=== PATIENT | female | born 1965 | race Caucasian/White ===

== ENCOUNTER 2017-11-27 00:24 | Emergency (ER) | payer OTHER ==
[2017-11-27] MEDS ORDERED: FENTANYL CITR 100 MCG/2 ML ONE (00:44)
[2017-11-27] MEDS ORDERED: NA CHLORIDE 0.9% 500 ML ONE (00:45)
[2017-11-27] MEDS ORDERED: ONDANSETRON 4 MG/2 ML VIAL ONE (00:45)
[2017-11-27 01:50] LABS: Absolute Lymphocytes (CBC) 2.2 K/uL (0.7-4.9); Absolute Monocytes 0.5 K/uL (0.1-1.3); Absolute Neutrophil 4.6 K/uL (1.8-8.0); Basophils % 0.3 % (0-1.3); Eosinophils % 2.1 % (0-4.4); Hematocrit 33.8 % (36.0-45.0); MCH 27.7 pg (27.0-35.0); MCV 84.7 fL (80-100); MPV 9.9 fL (7.6-11.3); Monocytes % 6.2 % (3.3-12.3); RBC Red Blood Cell Count 3.99 M/uL (3.86-4.86)
[2017-11-27 01:53] LABS: Potassium 3.8 mEq/L (3.6-5.0)
[2017-11-27 02:09] LABS: Albumin 3.3 g/dL (3.2-5.5); Bilirubin Total 0.5 mg/dL (0.3-1.2); Protein, Total 5.7 g/dL (6.0-8.3)
--- NOTE | 2017-11-27 02:21 | ER ---
Nurse's Notes [facility] Name: Renetta Ramsay Age: 51 yrs Sex: Female : 1965 Arrival Date: 11/27/2017 Time: 00:26 Bed 8 Private MD: Diagnosis: Pain in left foot;Type 2 diabetes mellitus-poorly controlled Presentation: 11/27 00:35 Presenting complaint: Patient states: she had excruciating pain in the left foot while mg2 sitting at home today. she observed the swelling of the left foot for 2 months already. Transition of care: patient was not received from another setting of care. Onset of symptoms was October 2017. Initial Sepsis Screen: Does the patient meet any 2 criteria? No. Patient's initial sepsis screen is negative. Does the patient have a suspected source of infection? No. Patient's initial sepsis screen is negative. Care prior to arrival: None. 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 - Social history:: Smoking status: Patient uses tobacco products, smokes one-half pack cigarettes per day. - Family history:: not pertinent. - Hospitalizations: : No recent hospitalization is reported. Screenin:50 Abuse screen: Denies threats or abuse. Denies injuries from another. Nutritional ak1 screening: No deficits noted. Tuberculosis screening: No symptoms or risk factors identified. Fall Risk None identified. Assessment: 00:55 General: Appears in no apparent distress. comfortable, Behavior is calm, cooperative. mg2 Pain: Complains of pain in left foot Pain does not radiate. Pain currently is 10 out of 10 on a pain scale. Quality of pain is described as burning, Pain began suddenly, Is intermittent, Aggravated by repositioning, Also complains of osteomyelitis. Neuro: Level of Consciousness is awake, alert, obeys commands, Oriented to person, place, time, situation. Cardiovascular: Capillary refill < 3 seconds Patient's skin is warm and dry. Respiratory: Airway is patent Respiratory effort is even, unlabored, Respiratory pattern is regular, symmetrical. GI: No signs and/or symptoms were reported involving the gastrointestinal system. : No signs and/or symptoms were reported regarding the genitourinary system. EENT: No signs and/or symptoms were reported regarding the EENT system. Derm: Skin is intact, Skin is pink, warm \T\ dry. normal. Musculoskeletal: Amputation of. 01:37 Reassessment: Patient appears in no apparent distress at this time. Patient and/or aa1 family updated on plan of care and expected duration. Pain level reassessed. Patient is alert, oriented x 3, equal unlabored respirations, skin warm/dry/pink. Awaiting lab results. Vital Signs: 00:39 BP 127 / 76; Pulse 91; Resp 18; Temp 98.8; Pulse Ox 98% ; Weight 102.97 kg; Height 5 mg2 ft. 11 in. (180.34 cm); Pain 10/10; 01:37 BP 107 / 60; Pulse 80; Resp 16; Pulse Ox 94% on R/A; aa1 02:17 BP 113 / 62; Pulse 80; Resp 16; Pulse Ox 95% on R/A; mt 02:34 BP 111 / 64; Pulse 75; Resp 12; Temp 98.3; Pulse Ox 97% on R/A; Pain 0/10; ak1 00:39 Body Mass Index 31.66 (102.97 kg, 180.34 cm) mg2 ED Course: 00:26 Patient arrived in ED. ds1 00:28 Alireza Mar RN is Primary Nurse. mg2 00:30 Krunal Flores MD is Attending Physician. bia 00:37 Triage completed. mg2 00:40 Arm band placed on Patient placed in the treatment room, on a stretcher, on pulse mg2 oximetry. 00:50 Initial lab(s) drawn, by me, sent to lab. Inserted saline lock: 22 gauge in right hand, ak1 using aseptic technique. Blood collected. 00:57 X-ray completed. Portable x-ray completed in exam room. Patient tolerated procedure kw well. 00:58 Foot Left 3 View XRAY In Process Unspecified. EDMS 00:58 Patient has correct armband on for positive identification. Bed in low position. Call mg2 light in reach. Side rails up X2. Warm blanket given. 02:26 Crutch training done. Ortho shoe applied to left foot. oh 02:34 No provider procedures requiring assistance completed. ak1 02:52 IV discontinued, intact, bleeding controlled, No redness/swelling at site. Pressure ak1 dressing applied, pt calling her mom for a ride home. Administered Medications: 00:50 Drug: Zofran 4 mg Route: IVP; Site: right hand; mg2 01:53 Follow up: Response: No adverse reaction; Other; no vomiting noted mg2 00:53 Drug: NS 0.9% 500 ml Route: IV; Rate: bolus; Site: right hand; aa1 02:35 Follow up: IV Status: Completed infusion ak1 00:53 Drug: fentaNYL (PF) 50 mcg Route: IVP; Site: right hand; aa1 01:53 Follow up: Response: No adverse reaction; Pain is decreased mg2 02:40 Drug: Insulin Regular Human 10 units {Co-Signature: ak1 (Leticia Xiong RN).} Route: IVP; Site: right hand; 02:51 Follow up: Response: No adverse reaction ak1 02:47 Drug: Levemir 100 unit/mL 30 units Route: Sub-Q; Site: right upper arm; 02:51 Follow up: Response: No adverse reaction ak1 Intake: Outcome: 02:21 Discharge ordered by . [facility] 02:34 Condition: stable ak1 02:34 Discharge instructions given to patient, Instructed on discharge instructions, follow up and referral plans. no drinking with medication, no driving heavy equipment, medication usage, crutch walking, Demonstrated understanding of instructions, follow-up care, medications, crutch walking, Prescriptions given X 1. 03:06 Discharged to home via wheelchair, with family, pt mother on her way to pick pt up ak1 03:06 Patient left the ED. ak1 Signatures: Dispatcher [employer] EDMS Alivia Fajardo RN RN aaKrunal Bravo MD MD cha Chretien, Felicia, RN RN Rissa Zhou dsLilia Madrigal Amber, RN RN sil1 Lana Cantu oh Alireza Mar RN RN [facility] Leticia mujica1
--- NOTE | 2017-11-27 02:22 | EDPHYS ---
Physician Documentation [facility] Name: Renetta Ramsay Age: 51 yrs Sex: Female : 1965 Arrival Date: 11/27/2017 Time: 00:26 Bed 8 Private MD: ED Physician Krunal Flores HPI: 11/27 00:40 This 51 yrs old Female presents to ER via Wheelchair with complaints of Foot bia Pain - Swelling. 00:40 The patient presents with decreased range of motion, pain, swelling, tenderness. The bia complaints affect the left foot. Context: The problem was sustained at an unknown location. Onset: The symptoms/episode began/occurred 5 day(s) ago. Modifying factors: The symptoms are alleviated by elevation of extremity, the symptoms are aggravated by weight bearing, movement. Associated signs and symptoms: The patient has no apparent associated signs or symptoms. Severity of symptoms: At their worst the symptoms were mild, in the emergency department the symptoms are unchanged. The patient has not experienced similar symptoms in the past. 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 - Social history:: Smoking status: Patient uses tobacco products, smokes one-half pack cigarettes per day. - Family history:: not pertinent. - Hospitalizations: : No recent hospitalization is reported. ROS: 00:40 Constitutional: Negative for fever, chills, and weight loss, Eyes: Negative for injury, bia pain, redness, and discharge, ENT: Negative for injury, pain, and discharge, Neck: Negative for injury, pain, and swelling, Cardiovascular: Negative for chest pain, palpitations, and edema, Respiratory: Negative for shortness of breath, cough, wheezing, and pleuritic chest pain, Abdomen/GI: Negative for abdominal pain, nausea, vomiting, diarrhea, and constipation, Back: Negative for injury and pain, : Negative for injury, bleeding, discharge, and swelling, Skin: Negative for injury, rash, and discoloration, Neuro: Negative for headache, weakness, numbness, tingling, and seizure, Psych: Negative for depression, anxiety, suicide ideation, homicidal ideation, and hallucinations, Allergy/Immunology: Negative for hives, rash, and allergies, Endocrine: Negative for neck swelling, polydipsia, polyuria, polyphagia, and marked weight changes, Hematologic/Lymphatic: Negative for swollen nodes, abnormal bleeding, and unusual bruising. 00:40 MS/extremity: Positive for pain, swelling, tenderness, of the left foot. Exam: 00:40 Constitutional: This is a well developed, well nourished patient who is awake, alert, bia and in no acute distress. Head/Face: Normocephalic, atraumatic. Eyes: Pupils equal round and reactive to light, extra-ocular motions intact. Lids and lashes normal. Conjunctiva and sclera are non-icteric and not injected. Cornea within normal limits. Periorbital areas with no swelling, redness, or edema. ENT: Nares patent. No nasal discharge, no septal abnormalities noted. Tympanic membranes are normal and external auditory canals are clear. Oropharynx with no redness, swelling, or masses, exudates, or evidence of obstruction, uvula midline. Mucous membranes moist. Neck: Trachea midline, no thyromegaly or masses palpated, and no cervical lymphadenopathy. Supple, full range of motion without nuchal rigidity, or vertebral point tenderness. No Meningismus. Chest/axilla: Normal chest wall appearance and motion. Nontender with no deformity. No lesions are appreciated. Cardiovascular: Regular rate and rhythm with a normal S1 and S2. No gallops, murmurs, or rubs. Normal PMI, no JVD. No pulse deficits. Respiratory: Lungs have equal breath sounds bilaterally, clear to auscultation and percussion. No rales, rhonchi or wheezes noted. No increased work of breathing, no retractions or nasal flaring. Abdomen/GI: Soft, non-tender, with normal bowel sounds. No distension or tympany. No guarding or rebound. No evidence of tenderness throughout. Back: No spinal tenderness. No costovertebral tenderness. Full range of motion. Pelvic Exam: Normal external genitalia. Speculum exam with closed cervical os, no discharge or bleeding noted. Bimanual exam with normal adnexa, no adnexal or cervical motion tenderness. Normal uterus. Female : Normal external genitalia. Skin: Warm, dry with normal turgor. Normal color with no rashes, no lesions, and no evidence of cellulitis. Neuro: Awake and alert, GCS 15, oriented to person, place, time, and situation. Cranial nerves II-XII grossly intact. Motor strength 5/5 in all extremities. Sensory grossly intact. Cerebellar exam normal. Normal gait. Psych: Awake, alert, with orientation to person, place and time. Behavior, mood, and affect are within normal limits. 00:40 Musculoskeletal/extremity: Extremities: ROM: intact in all extremities, full active range of motion, full passive range of motion, Pulses: noted to be 4+ in the bilateral radial, brachial, femoral, popliteal, posterior tibial and and dorsalis pedis arteries., DVT Exam: No signs of deep vein thrombosis. negative Homans' sign noted on exam, no appreciated bluish discoloration, no erythema, no increased warmth, pain, swelling, tenderness, of the left leg. Vital Signs: 00:39 BP 127 / 76; Pulse 91; Resp 18; Temp 98.8; Pulse Ox 98% ; Weight 102.97 kg; Height 5 mg2 ft. 11 in. (180.34 cm); Pain 10/10; 01:37 BP 107 / 60; Pulse 80; Resp 16; Pulse Ox 94% on R/A; aa1 02:17 BP 113 / 62; Pulse 80; Resp 16; Pulse Ox 95% on R/A; mt 02:34 BP 111 / 64; Pulse 75; Resp 12; Temp 98.3; Pulse Ox 97% on R/A; Pain 0/10; ak1 00:39 Body Mass Index 31.66 (102.97 kg, 180.34 cm) mg2 MDM: 00:30 Patient medically screened. [facility] 00:40 Data reviewed: vital signs, nurses notes, lab test result(s), radiologic studies, plain bia films. 11/27 00:39 Order name: Sed Rate; Complete Time: 02:19 [facility] 11/27 00:39 Order name: CBC with Diff; Complete Time: 02:19 [facility] 11/27 00:39 Order name: Foot Left 3 View XRAY [facility] 11/27 00:39 Order name: Comprehensive Metabolic Panel; Complete Time: 02:19 [facility] 11/27 02:20 Order name: Crutches; Complete Time: 02:20 [facility] 11/27 02:20 Order name: Post-op shoe; Complete Time: 02:20 [facility] Administered Medications: 00:50 Drug: Zofran 4 mg Route: IVP; Site: right hand; mg2 01:53 Follow up: Response: No adverse reaction; Other; no vomiting noted mg2 00:53 Drug: NS 0.9% 500 ml Route: IV; Rate: bolus; Site: right hand; aa1 02:35 Follow up: IV Status: Completed infusion ak1 00:53 Drug: fentaNYL (PF) 50 mcg Route: IVP; Site: right hand; aa1 01:53 Follow up: Response: No adverse reaction; Pain is decreased mg2 02:40 Drug: Insulin Regular Human 10 units {Co-Signature: mercedez (Leticia Xiong RN).} Route: IVP; Site: right hand; 02:51 Follow up: Response: No adverse reaction ak1 02:47 Drug: Levemir 100 unit/mL 30 units Route: Sub-Q; Site: right upper arm; 02:51 Follow up: Response: No adverse reaction ak1 Disposition: 11/27/17 02:21 Discharged to Home. Impression: Pain in left foot, Type 2 diabetes mellitus - poorly controlled. - Condition is Stable. - Discharge Instructions: Type 2 Diabetes Mellitus, Adult, Foot Sprain, Musculoskeletal Pain, Type 2 Diabetes Mellitus, Adult, [id number]. - Prescriptions for Tylenol- Codeine #3 300-30 mg Oral Tablet - take 2 tablets by ORAL route every 6 hours As needed; 26 tablet. - Medication Reconciliation Form, Thank You Letter, Antibiotic Education, Prescription Opioid Use form. - Follow up: Private Physician; When: 2 - 3 days; Reason: Recheck today's complaints, Continuance of care, Re-evaluation by your physician. - Problem is new. - Symptoms are unchanged. Signatures: Dispatcher [employer] Alivia Pererya RN RN aa1 Krunal Flores MD MD cha Chretien, Felicia, RN RN fc Krenek, Amber, RN RN ak1 Alireza Mar RN RN mg2 Amber Krenek RN ak1 Corrections: (The following items were deleted from the chart) 03:06 02:21 11/27/2017 02:21 Discharged to Home. Impression: Pain in left foot; Type 2 ak1 diabetes mellitus - poorly controlled. Condition is Stable. Discharge Instructions: Type 2 Diabetes Mellitus, Adult, Foot Sprain, Musculoskeletal Pain, Type 2 Diabetes Mellitus, Adult, [id number]. Prescriptions for Tylenol-Codeine #3 300-30 mg Oral Tablet - take 2 tablets by ORAL route every 6 hours As needed; 26 tablet. and Forms are Medication Reconciliation Form, Thank You Letter, Antibiotic Education, Prescription Opioid Use. Follow up: Private Physician; When: 2 - 3 days; Reason: Recheck today's complaints, Continuance of care, Re-evaluation by your physician. Problem is new. Symptoms are unchanged. bia
[2017-11-27] MEDS ORDERED: INSULIN -REGULAR HUMAN 50 UNIT/0.5 ML ML ONE (02:31)
[2017-11-27] MEDS ORDERED: INSULIN DETEMIR 100 UNIT/1 ML INSULIN SQ ONE (02:41)
[2017-11-27 03:15] VITALS: BP 111/64; TEMP 98.3; O2SAT 97
--- NOTE | 2017-11-27 08:49 | RAD REPORT ---
EXAM DESCRIPTION: RAD - Foot Left 3 View - 11/27/2017 1:02 am CLINICAL HISTORY: Left foot swelling. COMPARISON: 08/27/2017 FINDINGS: First and second toe amputation is noted. Prominent soft tissue swelling is seen about the amputation site without bony destruction. Callus formation is seen involving the third metatarsal he ad likely indicating a healing fracture. Flattening of the fourth metatarsal head is seen, likely chronic related to underlying AVN. Prominent calcaneal spur noted. Moderate intertarsal degenerative changes are seen. IMPRESSION: First and second toe amputation. Callus formation around the third metatarsal head likely indicating healing fracture.
== END 2017-11-27 03:06 | disposition home or self-care (01) ==
LOC: ER 00:24
DX: M79.672 Pain in left foot (principal); E11.65 Type 2 diabetes mellitus with hyperglycemia; F17.210 Nicotine dependence, cigarettes, uncomplicated; Z88.0 Allergy status to penicillin; Z88.1 Allergy status to other antibiotic agents; Z88.5 Allergy status to narcotic agent; Z88.8 Allergy status to other drugs, medicaments and biological substances
CPT/HCPCS: 36415; 73630; 80053; 85025; 85652; 96361; 96372; 96374; 96375; 99284; J2405; J3010

== ENCOUNTER 2018-01-03 21:19 | Emergency (ER) | payer OTHER ==
[2018-01-03] MEDS ORDERED: IBUPROFEN 400 MG TAB ONE (22:13)
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
[2018-01-04 00:26] VITALS: BP 122/70; TEMP 98.7; O2SAT 99
--- NOTE | 2018-01-04 08:09 | RAD REPORT ---
EXAM DESCRIPTION: RAD - Knee Right 3 View - 01/03/2018 10:11 pm CLINICAL HISTORY: Right knee pain status post injury FINDINGS: No fracture or dislocation is seen. A small joint effusion is suspected. If the patient continues have symptoms to suggest an occult fracture, ligamentous or meniscal injury then an MRI would be recommended.
== END 2018-01-03 23:31 | disposition home or self-care (01) ==
LOC: ER 21:19
DX: M25.561 Pain in right knee (principal); E11.9 Type 2 diabetes mellitus without complications; E78.00 Pure hypercholesterolemia, unspecified; F17.210 Nicotine dependence, cigarettes, uncomplicated; Z88.0 Allergy status to penicillin; Z88.8 Allergy status to other drugs, medicaments and biological substances
CPT/HCPCS: 99283

== ENCOUNTER 2018-03-07 20:51 | Emergency (ER) | payer OTHER ==
--- NOTE | 2018-03-07 22:10 | RAD REPORT ---
EXAM DESCRIPTION: RAD - Knee Right 3 View - 03/07/2018 10:01 pm CLINICAL HISTORY: PAIN COMPARISON: Knee Right 3 View dated 01/03/2018; Knee Right Wo Cont dated 01/22/2018 FINDINGS: Mild meniscal chondrocalcinosis is seen. Subtle sclerosis in the fibular head is likely at tributable to healing fracture. No acute fracture or dislocation seen. No intra-articular joint fluid .
--- NOTE | 2018-03-07 22:29 | RAD REPORT ---
EXAM DESCRIPTION: RAD - Knee Left 3 View - 03/07/2018 10:17 pm CLINICAL HISTORY: PAIN COMPARISON: Knee Left 3 view dated 08/05/2014 FINDINGS: No fracture or dislocation is seen. No significant joint effusion. Mild lateral compartmen t arthritic changes.
--- NOTE | 2018-03-07 22:31 | RAD REPORT ---
EXAM DESCRIPTION: RAD - Ankle Left 3 View - 03/07/2018 10:17 pm CLINICAL HISTORY: PAIN COMPARISON: Ankle Left 3 View dated 06/11/2015 FINDINGS: Mild osteoarthritic changes are present involving the tibiotalar joint and talocalcaneal j oint. Soft tissue swelling is seen about the ankle. No acute fractures appreciated. Small calcaneal s purs are noted.
[2018-03-07 23:55] LABS: Absolute Lymphocytes (CBC) 2.7 K/uL (0.7-4.9); Absolute Monocytes 0.6 K/uL (0.1-1.3); Absolute Neutrophil 3.7 K/uL (1.8-8.0); Basophils % 0.3 % (0-1.3); Eosinophils % 1.6 % (0-4.4); Hematocrit 36.3 % (36.0-45.0); Lymphocytes % 38.1 % (15.3-44.8); MCH 29.5 pg (27.0-35.0); MCV 86.4 fL (80-100); MPV 9.8 fL (7.6-11.3); Monocytes % 7.8 % (3.3-12.3); RBC Red Blood Cell Count 4.21 M/uL (3.86-4.86)
[2018-03-08 00:02] LABS: Urine Blood NEGATIVE (NEG); Urine Glucose NEGATIVE (NEG); Urine Protein NEGATIVE (NEG)
[2018-03-08 00:08] LABS: Potassium 3.4 mmol/L (3.5-5.1)
--- NOTE | 2018-03-08 02:00 | ER ---
Nurse's Notes [facility] Name: Renetta Ramsay Age: 52 yrs Sex: Female : 1965 Arrival Date: 03/07/2018 Time: 20:51 Bed 15 Private MD: Diagnosis: Fall (on) (from) other stairs and steps;Pain in unspecified knee-Bilateral, s/p fall;Contusion of abdominal wall;Pain in left ankle and joints of left foot-s/p fall Presentation: 03/07 21:04 Presenting complaint: Patient states: Reports falling from step stool and hitting abdomen on metal bar. Denies LOC. Also reports bilateral knee pain and left ankle pain. Ambulated with steady gait to triage. Redness noted to RLQ. Care prior to arrival: None. Mechanism of Injury: Fall out of chair. Trauma event details: Injury occurred in the [facility], Injury occurred: at home. Injury occurred: March 07, 2018 Injury occurred at: 20:45. 21:04 Method Of Arrival: Ambulatory aj 21:04 Acuity: OLY 4 aj 21:08 Transition of care: patient was not received from another setting of care. Onset of aj symptoms was March 07, 2018. 22:42 Risk Assessment: Do you want to hurt yourself or someone else? Patient reports no tl2 desire to harm self or others. Initial Sepsis Screen: Does the patient meet any 2 criteria? No. Patient's initial sepsis screen is negative. Does the patient have a suspected source of infection? No. Patient's initial sepsis screen is negative. 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 LMP N/A - Hysterectomy aj Trauma Activation: Not Applicable Physician: ED Physician; Name: ; Notified At: ; Arrived At: Physician: General Surgeon; Name: ; Notified At: ; Arrived At: Physician: Radiology; Name: ; Notified At: ; Arrived At: Physician: Respiratory; Name: ; Notified At: ; Arrived At: Physician: Lab; Name: ; Notified At: ; Arrived At: Historical: - Allergies: 21:11 Amoxicillin; aj 21:11 ARIPIPRAZOLE; aj 21:11 Demerol; aj 21:11 PENICILLINS; aj 21:11 pentazocine lactate; aj - Home Meds: 21:11 venlafaxine 150 mg oral cp24 1 cap once daily [Active]; Wellbutrin XL 150 mg Oral Tb24 aj 1 tab once daily [Active]; Xanax 2 mg Oral tab twice a day [Active]; pantoprazole 40 mg oral TbEC 1 tab once daily [Active]; Lyrica 150 mg Oral 3 times per day [Active]; olanzapine 5 mg oral TbDL 1 tab once daily [Active]; atorvastatin 20 mg oral tab 1 tab once daily [Active]; Xarelto 20 mg oral tab 1 tab once daily [Active]; Depakote 500 mg Oral TbEC 3 tabs 3 times per day [Active]; Topamax Oral [Active]; - PMHx: 21:11 ADD/ADHD; Bipolar disorder; Depression; Diabetes - NIDDM; High Cholesterol; aj osteomyelitis; Pancreatitis; Chronic pain; - Immunization history: Last tetanus immunization: - up to date. - Social history:: Smoking status: Patient uses tobacco products, smokes one-half pack cigarettes per day. - Ebola Screening: : Patient negative for fever greater than or equal to 101.5 degrees Fahrenheit, and additional compatible Ebola Virus Disease symptoms Patient denies exposure to infectious person Patient denies travel to an Ebola-affected area in the 21 days before illness onset No symptoms or risks identified at this time. Screenin:30 Abuse screen: Denies threats or abuse. Nutritional screening: No deficits noted. tl2 Tuberculosis screening: No symptoms or risk factors identified. Fall Risk Fall in past 12 months (25 points). Primary Survey: 21:04 Breathing/Chest: Respiratory pattern: regular, Respiratory effort: spontaneous, aj unlabored, Breath sounds: clear, bilaterally. Chest inspection: symmetrical rise and fall of the chest. Circulation: Skin color: pink, Skin temperature: warm, diaphoretic. Disability Alert. Assessment: 21:04 General: Appears in no apparent distress. comfortable, Behavior is calm, cooperative, aj appropriate for age. Pain: Complains of pain in right lower quadrant, right knee, left knee and anterior aspect of left ankle. Neuro: Level of Consciousness is awake, alert, obeys commands, Oriented to person, place, time, situation, Appropriate for age. Respiratory: Airway is patent Respiratory effort is even, unlabored, Respiratory pattern is regular, symmetrical. Derm: Skin is intact, is healthy with good turgor, Skin is pink, warm \T\ dry. normal, Bruising that is bright red, dark purple, on right lower quadrant. Musculoskeletal: Circulation, motion, and sensation intact. Range of motion: intact in all extremities. 22:30 General: Appears in no apparent distress. comfortable, Behavior is calm, cooperative, tl2 appropriate for age. Pain: Complains of pain in right lower quadrant and right knee and left knee. Neuro: Level of Consciousness is awake, alert, obeys commands, Oriented to person, place, time, situation. Neuro: Reports dizziness. Cardiovascular: Denies chest pain. Respiratory: Airway is patent Respiratory effort is even, unlabored, Respiratory pattern is regular, symmetrical. GI: Abdomen is non-distended, Abdomen is tender to palpation in right lower quadrant. : No signs and/or symptoms were reported regarding the genitourinary system. Derm: Skin is pink, warm \T\ dry. Bruising that is bright red, on right lower quadrant. 03/08 00:04 Reassessment: Patient appears in no apparent distress at this time. Patient and/or tl2 family updated on plan of care and expected duration. Pain level reassessed. Patient is alert, oriented x 3, equal unlabored respirations, skin warm/dry/pink. 01:01 Reassessment: Patient appears in no apparent distress at this time. Patient and/or tl2 family updated on plan of care and expected duration. Pain level reassessed. Patient is alert, oriented x 3, equal unlabored respirations, skin warm/dry/pink. Awaiting CT results. 02:25 Reassessment: Patient appears in no apparent distress at this time. Patient and/or tl2 family updated on plan of care and expected duration. Pain level reassessed. Patient is alert, oriented x 3, equal unlabored respirations, skin warm/dry/pink. Pt verbalized understanding of discharge instructions, need for follow up Patient states feeling better. Vital Signs: 03/07 21:04 BP 138 / 95; Pulse 84; Resp 16; Temp 96.6(TE); Pulse Ox 97% on R/A; Weight 109.32 kg; aj Height 5 ft. 11 in. (180.34 cm); 22:26 BP 137 / 82; Pulse 73; Resp 16; Pulse Ox 96% on R/A; mt 03/08 00:03 BP 122 / 74; Pulse 71; Resp 18; Pulse Ox 96% on R/A; tl2 01:01 BP 111 / 72; Pulse 68; Resp 18; Pulse Ox 94% on R/A; tl2 02:25 BP 146 / 83; Pulse 68; Resp 18; Pulse Ox 98% on R/A; tl2 0816 21:04 Body Mass Index 33.61 (109.32 kg, 180.34 cm) aj [place] Coma Score: 03/07 21:04 Eye Response: spontaneous(4). Verbal Response: oriented(5). Motor Response: obeys aj commands(6). Total: 15. Trauma Score (Adult): 21:04 Eye Response: spontaneous(1); Verbal Response: oriented(1); Motor Response: obeys aj commands(2); Systolic BP: > 89 mm Hg(4); Respiratory Rate: 10 to 29 per min(4); Criss Score: 15; Trauma Score: 12 ED Course: 20:51 Patient arrived in ED. ds1 21:06 Triage completed. aj 21:11 Arm band placed on right wrist. Patient placed in waiting room, Patient notified of wait time. 22:01 Knee Right 3 View XRAY In Process Unspecified. EDMS 22:17 Knee Left 3 View XRAY In Process Unspecified. EDMS 22:17 Ankle Left 3 View XRAY In Process Unspecified. EDMS 22:18 Krunal Chandler PA is PHCP. cp 22:18 Krunal Flores MD is Attending Physician. cp 22:30 Patient has correct armband on for positive identification. Bed in low position. Call tl2 light in reach. Side rails up X2. 22:39 Dominique Gibson, RN is Primary Nurse. tl2 22:55 Radiology exam delayed due to lab results not completed at this time. (BUN/Creatinine). nc 03/08 00:39 CT Traumagram (Head C Spine CAP W Con) In Process Unspecified. EDMS 00:39 CT completed. Patient tolerated procedure well. Patient moved to CT via stretcher. Patient moved back from CT. 01:00 Inserted saline lock: 22 gauge in right wrist, using aseptic technique. Blood collected.tl2 02:25 No provider procedures requiring assistance completed. tl2 02:27 IV discontinued, intact, bleeding controlled, No redness/swelling at site. Pressure tl2 dressing applied. Administered Medications: No medications were administered Outcome: 01:59 Discharge ordered by . cp 02:27 Discharged to home ambulatory. tl2 02:27 Condition: stable 02:27 Discharge instructions given to patient, Instructed on discharge instructions, follow up and referral plans. Demonstrated understanding of instructions, follow-up care. 02:28 Patient left the ED. tl2 Signatures: Dispatcher [employer] Annita Salcido, RN RN Jamaal Badillo Demi ds1 Krunal Chandler PA PA cp Knox, Taylor, RN RN tl2 Bradley Cabral Moriah mt
--- NOTE | 2018-03-08 02:00 | EDPHYS ---
Physician Documentation [facility] Name: Renetta Ramsay Age: 52 yrs Sex: Female : 1965 Arrival Date: 03/07/2018 Time: 20:51 Bed 15 Private MD: ED Physician Krunal Flores HPI: 03/07 22:55 This 52 yrs old Female presents to ER via Ambulatory with complaints of Fall cp Injury. 22:55 Details of fall: The patient fell from a height, step stool. cp 22:55 Onset: The symptoms/episode began/occurred tonight. Associated injuries: The patient cp sustained injury to the abdomen, specifically the right lower quadrant, contusion, right knee and left knee and left ankle, pain. SKEIN TIER: 21:11 LMP N/A - Hysterectomy aj Historical: - Allergies: 21:11 Amoxicillin; aj 21:11 ARIPIPRAZOLE; aj 21:11 Demerol; aj 21:11 PENICILLINS; aj 21:11 pentazocine lactate; aj - Home Meds: 21:11 venlafaxine 150 mg oral cp24 1 cap once daily [Active]; Wellbutrin XL 150 mg Oral Tb24 aj 1 tab once daily [Active]; Xanax 2 mg Oral tab twice a day [Active]; pantoprazole 40 mg oral TbEC 1 tab once daily [Active]; Lyrica 150 mg Oral 3 times per day [Active]; olanzapine 5 mg oral TbDL 1 tab once daily [Active]; atorvastatin 20 mg oral tab 1 tab once daily [Active]; Xarelto 20 mg oral tab 1 tab once daily [Active]; Depakote 500 mg Oral TbEC 3 tabs 3 times per day [Active]; Topamax Oral [Active]; - PMHx: 21:11 ADD/ADHD; Bipolar disorder; Depression; Diabetes - NIDDM; High Cholesterol; aj osteomyelitis; Pancreatitis; Chronic pain; - Immunization history: Last tetanus immunization: - up to date. - Social history:: Smoking status: Patient uses tobacco products, smokes one-half pack cigarettes per day. - Ebola Screening: : Patient negative for fever greater than or equal to 101.5 degrees Fahrenheit, and additional compatible Ebola Virus Disease symptoms Patient denies exposure to infectious person Patient denies travel to an Ebola-affected area in the 21 days before illness onset No symptoms or risks identified at this time. ROS: 23:00 Constitutional: Negative for body aches, chills, fever, poor PO intake. cp 23:00 Eyes: Negative for injury, pain, redness, and discharge. cp 23:00 Neck: Negative for pain with movement, stiffness. 23:00 Cardiovascular: Negative for chest pain, edema, palpitations. 23:00 Respiratory: Negative for cough, shortness of breath, wheezing. 23:00 Abdomen/GI: Positive for of the right lower quadrant, contusion, Negative for vomiting, diarrhea, constipation, black/tarry stool, rectal bleeding. 23:00 MS/extremity: Positive for contusion, pain, swelling, tenderness, of the right knee and left knee and left ankle. 23:00 Neuro: Negative for altered mental status, dizziness, loss of consciousness, syncope, near syncope, weakness. 23:00 All other systems are negative. Exam: 23:10 Constitutional: The patient appears in no acute distress, alert, awake, cp non-diaphoretic, non-toxic, well developed, well nourished. 23:10 Head/Face: Normocephalic, atraumatic. cp 23:10 Eyes: Periorbital structures: appear normal, Pupils: equal, round, and reactive to light and accomodation, Extraocular movements: intact throughout, Conjunctiva: normal, no exudate, no injection, Lids and lashes: appear normal, bilaterally. 23:10 ENT: External ear(s): are unremarkable, Ear canal(s): are normal, clear, TM's: bulging, is not appreciated, bilaterally, dullness, bilaterally, erythema, is not appreciated, bilaterally, Nose: is normal, Mouth: Lips: moist, Oral mucosa: moist, Posterior pharynx: is normal, airway is patent, no erythema, no exudate. 23:10 Neck: C-spine: vertebral tenderness, is not appreciated, crepitus, is not appreciated. 23:10 Chest/axilla: Inspection: normal, Palpation: is normal, no crepitus, no tenderness. 23:10 Cardiovascular: Rate: normal, Rhythm: regular. 23:10 Respiratory: the patient does not display signs of respiratory distress, Respirations: normal, no use of accessory muscles, no retractions, no splinting, no tachypnea, Breath sounds: are clear throughout, no decreased breath sounds, no stridor, no wheezing. 23:10 Abdomen/GI: Inspection: bruising, right lower quadrant, distension, is not seen, obese Bowel sounds: active, all quadrants, Palpation: soft, in all quadrants, mild abdominal tenderness, in the right lower quadrant, rebound tenderness, is not appreciated, voluntary guarding, is not appreciated, involuntary guarding, is not appreciated. 23:10 Back: pain, is absent, ROM is normal. 23:10 Musculoskeletal/extremity: Extremities: grossly normal except: noted in the right knee and left knee and left ankle: swelling, tenderness, There is no evidence of decreased ROM, deformity, ROM: full active range of motion, in the right arm, left arm, right leg and left leg, Sensation intact. 23:10 Skin: cellulitis, is not appreciated, no rash present. 23:10 Neuro: Orientation: to person, place \T\ time. Mentation: lucid, able to follow commands, Cerebellar function: is grossly normal, Motor: moves all fours, strength is normal. Vital Signs: 21:04 BP 138 / 95; Pulse 84; Resp 16; Temp 96.6(TE); Pulse Ox 97% on R/A; Weight 109.32 kg; aj Height 5 ft. 11 in. (180.34 cm); 22:26 BP 137 / 82; Pulse 73; Resp 16; Pulse Ox 96% on R/A; mt 03/08 00:03 BP 122 / 74; Pulse 71; Resp 18; Pulse Ox 96% on R/A; tl2 01:01 BP 111 / 72; Pulse 68; Resp 18; Pulse Ox 94% on R/A; tl2 02:25 BP 146 / 83; Pulse 68; Resp 18; Pulse Ox 98% on R/A; tl2 03/07 21:04 Body Mass Index 33.61 (109.32 kg, 180.34 cm) aj [place] Coma Score: 03/07 21:04 Eye Response: spontaneous(4). Verbal Response: oriented(5). Motor Response: obeys aj commands(6). Total: 15. Trauma Score (Adult): 21:04 Eye Response: spontaneous(1); Verbal Response: oriented(1); Motor Response: obeys aj commands(2); Systolic BP: > 89 mm Hg(4); Respiratory Rate: 10 to 29 per min(4); Criss Score: 15; Trauma Score: 12 MDM: 22:18 Patient medically screened. 23:00 Differential diagnosis: closed head injury, contusion, fracture, laceration, multiple cp trauma. 03/08 01:57 Special discussion: I discussed with the patient the need to follow-up with the cp PCP/specialist for the noted incidental finding on X-ray/CT scanning. right breast nodule. Recommend f/u with PCP. 01:58 Data reviewed: vital signs, nurses notes, lab test result(s), radiologic studies, CT cp scan, plain films. 01:58 Test interpretation: by ED physician or midlevel provider: plain radiologic studies. cp Counseling: I had a detailed discussion with the patient and/or guardian regarding: the historical points, exam findings, and any diagnostic results supporting the discharge/admit diagnosis, lab results, radiology results, the need for outpatient follow up, a family practitioner, to return to the emergency department if symptoms worsen or persist or if there are any questions or concerns that arise at home. Response to treatment: the patient's symptoms have mildly improved after treatment, and as a result, I will discharge patient. 03/07 22:52 Order name: Basic Metabolic Panel; Complete Time: 00:09 03/08 00:10 Interpretation: Normal except: K 3.4; CO2 33; GLUC 120; GFR 76. 03/07 22:52 Order name: CBC with Diff; Complete Time: 00:09 03/07 22:52 Order name: Creatinine for Radiology; Complete Time: 00:09 03/07 22:52 Order name: Type And Screen 03/07 23:49 Order name: Urine Dipstick--Ancillary (enter results) fl 03/07 23:53 Order name: Urine --Ancillary (enter results) fl 03/07 21:12 Order name: Knee Right 3 View XRAY; Complete Time: 00:09 03/08 00:10 Interpretation: Report reviewed. 03/07 21:12 Order name: Knee Left 3 View XRAY; Complete Time: 00:09 03/08 00:10 Interpretation: Report reviewed. 03/07 21:12 Order name: Ankle Left 3 View XRAY; Complete Time: 00:09 03/08 00:10 Interpretation: Report reviewed. 03/07 22:52 Order name: CT Traumagram (Head C Spine CAP W Con) 03/07 22:52 Order name: Urine Test (obtain specimen); Complete Time: 23:20 03/07 22:52 Order name: Labs collected and sent; Complete Time: 23:20 cp 03/07 22:52 Order name: Urine Dipstick-Ancillary (obtain specimen); Complete Time: 23:20 cp Administered Medications: No medications were administered Disposition: 07:27 Co-signature as Attending Physician, Krunal Flores MD I agree with the assessment and bia plan of care. Disposition: 03/08/18 01:59 Discharged to Home. Impression: Fall (on) (from) other stairs and steps, Pain in unspecified knee - Bilateral, s/p fall, Contusion of abdominal wall, Pain in left ankle and joints of left foot - s/p fall. - Condition is Stable. - Discharge Instructions: Elastic Bandage and RICE, Contusion, Fall Prevention in the Home, Knee Pain, Ankle Pain. - Medication Reconciliation Form, Thank You Letter, Antibiotic Education, Prescription Opioid Use form. - Follow up: Private Physician; When: 1 - 2 days; Reason: Recheck today's complaints. - Problem is new. - Symptoms have improved. Signatures: Dispatcher [employer] EDMS Annita Grijalva RN RN aj Anderson, Corey, MD MD cha Page, Corey, PA Dominique Patel cp RN RN tl2 Corrections: (The following items were deleted from the chart) 02:28 01:59 03/08/2018 01:59 Discharged to Home. Impression: Fall (on) (from) other stairs tl2 and steps; Pain in unspecified knee - Bilateral, s/p fall; Contusion of abdominal wall; Pain in left ankle and joints of left foot - s/p fall. Condition is Stable. Forms are Medication Reconciliation Form, Thank You Letter, Antibiotic Education, Prescription Opioid Use. Follow up: Private Physician; When: 1 - 2 days; Reason: Recheck today's complaints. Problem is new. Symptoms have improved. cp
[2018-03-08 02:35] VITALS: TEMP 96.6
[2018-03-08 02:39] VITALS: BP 146/83; O2SAT 98
--- NOTE | 2018-03-08 08:08 | RAD REPORT ---
EXAM DESCRIPTION: CT - Head C Spine Cap W Con - 03/08/2018 3:46 am CLINICAL HISTORY: Trauma, head and neck injury. Chest, abdomen and pelvis pain. fall off step stool COMPARISON: Head Brain Wo Cont dated 03/16/2016; Abdomen Pelvis W Contrast dated 02/12/2016; Abdomen Pelvis Wo Contrast dated 01/13/2016; Head C Spine Cap W Con dated 12/27/2015; Thorax Wo Con dated TECHNIQUE: CT head without contrast. CT cervical spine without contrast with coronal and sagittal reformatted images. CT chest, abdomen and pelvis with IV contrast (approximately 100 mL nonionic IV contrast) with oneill l and sagittal reformatted images of the spine. All CT scans are performed using dose optimization technique as appropriate and may include automated exposure control or mA/KV adjustment according to patient size. FINDINGS: CT HEAD WITHOUT CONTRAST: No intracranial hemorrhage, hydrocephalus or extra-axial fluid collection. No areas of brain edema o r midline shift. The paranasal sinuses and mastoids are clear. The calvarium is intact. CT CERVICAL SPINE WITHOUT CONTRAST: No fracture or subluxation. ACDF span C4-6. The prevertebral soft tissues are normal in thickness.Mul tilevel degenerative changes present. CT CHEST, ABDOMEN, PELVIS WITH CONTRAST: Calcified oval nodule in the left upper lobe is unchanged. No focal pulmonary infiltrate.1.1 cm right breast nodule is incidentally noted.No pneumothorax or pericardial/pleural fluid. No evidence of intra-abdominal visceral injury, free fluid or free air. Mild fatty liver. Postsurgica l changes are seen in the sigmoid colon with diverticulosis coli present. No concerning pelvic findings. No fractures. Moderate spondylosis L5-S1. IMPRESSION: Negative for acute traumatic findings.
== END 2018-03-08 02:28 | disposition home or self-care (01) ==
LOC: ER 20:51
DX: S30.1XXA Contusion of abdominal wall, initial encounter (principal); M25.562 Pain in left knee; M25.561 Pain in right knee; W10.8XXA Fall (on) (from) other stairs and steps, initial encounter; Y93.9 Activity, unspecified; Y92.9 Unspecified place or not applicable; Z88.0 Allergy status to penicillin; Z88.1 Allergy status to other antibiotic agents; Z88.5 Allergy status to narcotic agent; Z88.8 Allergy status to other drugs, medicaments and biological substances; E78.00 Pure hypercholesterolemia, unspecified; F32.9 Major depressive disorder, single episode, unspecified; E11.9 Type 2 diabetes mellitus without complications; F31.9 Bipolar disorder, unspecified
CPT/HCPCS: 36415; 70450; 71260; 72125; 73562 ×2; 73610; 74177; 80048; 81003; 81025; 85025; 86850; 86900; 86901; Q9967; 99284

== ENCOUNTER 2018-05-19 16:15 | Emergency (ER) | payer OTHER ==
--- OUTSIDE RECORDS SUMMARY | 2018-05-19 16:18 | XMS REPORT | Summary of Care ---
:1965 Author Name NABOR ARIAS M.D. Address Unavailable Unavailable , Care Team Providers Name Role Phone NABOR ARIAS M.D. Unavailable Unavailable CHIQUITA ROLLINS MD Unavailable Unavailable CHIQUITA ARMSTRONG MD Unavailable Functional Status Name Dates Details Functional status health issues are not documented Status: Name Dates Details Cognitive status health issues are not documented Status: Problems Name Dates Details Aftercare following surgery (V58.89, Z48.89) Status: Active Medications Name Dates Details MetFORMIN HCl - 500 MG Oral Tablet Refills: 0 Active ALPRAZolam 1 MG Oral Tablet Refills: 0 Active OLANZapine 5 MG Oral Tablet Refills: 0 Active Venlafaxine HCl ER 150 MG Oral Tablet Extended Release 24 Hour Refills: 0 Active Lyrica 150 MG Oral Capsule Refills: 0 Active Pantoprazole Sodium 40 MG Oral Tablet Delayed Release Refills: 0 Active Depakote 500 MG Oral Tablet Delayed Release Refills: 0 Active OLANZapine 10 MG Oral Tablet Refills: 0 Active Fenofibrate 145 MG Oral Tablet Refills: 0 Active Xarelto 20 MG Oral Tablet Refills: 0 Active HumaLOG SOLN Refills: 0 Active Tresiba FlexTouch 100 UNIT/ML Subcutaneous Solution Pen-injector Refills: 0 Active Allergies and Adverse Reactions Name Dates Details Penicillins (Allergy) Status: Active Past Medical History Name Dates Details History of Abdominal discomfort (789.00, R10.9) Status: Resolved History of Achalasia (530.0, K22.0) Status: Resolved History of bipolar disorder (V11.1, Z86.59) Status: Resolved History of Cervical dysphagia (787.29, R13.19) Status: Resolved History of deep venous thrombosis (V12.51, Z86.718) Status: Resolved History of diabetes mellitus (V12.29, Z86.39) Status: Resolved History of heartburn (V12.79, Z87.898) Status: Resolved History of hiatal hernia (V12.79, Z87.19) Status: Resolved History of hypercholesterolemia (V12.29, Z86.39) Status: Resolved History of nausea (V12.79, Z87.898) Status: Resolved History of pulmonary embolism (V12.55, Z86.711) Status: Resolved History of vomiting (V13.89, Z87.898) Status: Resolved Procedures Procedure Dates Details History of Appendectomy Completed History of Neck surgery Completed History of Hysterectomy Completed History of Colon Surgery Completed History of Back Surgery Completed History of Heller Myotomy Laparoscopic Approach Completed Immunization Name Dates Details Immunizations not documented Family History Name Dates Details Family history of malignant neoplasm of breast (V16.3, Z80.3) Status: Active Social History Name Dates Details - Status: Name Dates Details Smoker. current status unknown Vital Signs Date Test Result Details [id number] BP Systolic 126 mm[Hg] Status: Comments: Location: E; Position: Sitting BP Diastolic 75 mm[Hg] Status: Comments: Location: [facility]; Position: Sitting Height 71 in Status: Weight 254.125 lb Status: Body Mass Index Calculated 35.44 kg/m2 Status: Body Surface Area Calculated 2.33 m2 Status: Temperature 98.4 f Status: Comments: Method: Oral Heart Rate 76 /min Status: Comments: Quality: Normal Respiration Rate 19 /min Status: Comments: Quality: Normal O2 SAT 95 % Status: Comments: Source: RA [id number] BP Systolic 126 mm[Hg] Status: Comments: Location: [facility]; Position: Sitting BP Diastolic 81 mm[Hg] Status: Comments: Location: [facility]; Position: Sitting Height 71 in Status: Weight 248.375 lb Status: Body Mass Index Calculated 34.64 kg/m2 Status: Body Surface Area Calculated 2.31 m2 Status: Temperature 98.3 f Status: Comments: Method: Oral Heart Rate 83 /min Status: Comments: Quality: Normal Respiration Rate 18 /min Status: Comments: Quality: Normal O2 SAT 95 % Status: Comments: Source: RA Results Date Description Value Details Results not documented Plan of Care Name Dates Details Planned Observations Planned Goals not documented Interventions Provided PlanI advance her diet to a regular diet. I will see her again in 3 months for a follow up. Instructions Name Dates Details Instructions not documented Encounters Appointment; NABOR ARIAS M.D. On: 17-Apr-2018 9:00 Encounter Diagnosis: Problem not documented Appointment; NABOR ARIAS M.D. On: 01-May-2018 11:15 Encounter Diagnosis: Problem not documented
[2018-05-19 17:38] LABS: Urine RBC <5 /HPF (NONE SEEN)
[2018-05-19 17:39] LABS: Urine Bacteria LOADED /HPF (<20); Urine Culture Reflex Order REFLEXED
--- NOTE | 2018-05-19 17:45 | EDPHYS ---
Physician Documentation [facility] Name: Renetta Ramsay Age: 52 yrs Sex: Female : 1965 Arrival Date: 05/19/2018 Time: 16:18 Bed 6 Private MD: ED Physician Francisco Browning HPI: 05/19 18:25 This 52 yrs old Female presents to ER via Wheelchair with complaints of Back snw Pain. 18:25 The patient presents with pain that is chronic. The symptoms are located in the low snw back. Onset: The symptoms/episode began/occurred gradually. The problem was sustained from unknown cause. Severity of symptoms: At their worst the symptoms were moderate. The patient has experienced similar episodes in the past, chronically. Historical: - Allergies: 16:32 Amoxicillin; sv 16:32 ARIPIPRAZOLE; sv 16:32 Demerol; sv 16:32 PENICILLINS; sv 16:32 pentazocine lactate; sv 16:32 Tal[place]; sv - PMHx: 16:32 ADD/ADHD; Bipolar disorder; High Cholesterol; Chronic pain; Depression; Diabetes - sv NIDDM; osteomyelitis; Pancreatitis; - Immunization history:: Adult Immunizations up to date, Flu vaccine is not up to date. - Social history:: Smoking status: Patient uses tobacco products, smokes one-half pack cigarettes per day. - Ebola Screening: : No symptoms or risks identified at this time. ROS: 18:20 Constitutional: Negative for fever, chills, and weight loss, Eyes: Negative for injury, snw pain, redness, and discharge, ENT: Negative for injury, pain, and discharge, Neck: Negative for injury, pain, and swelling, Cardiovascular: Negative for chest pain, palpitations, and edema, Respiratory: Negative for shortness of breath, cough, wheezing, and pleuritic chest pain, Abdomen/GI: Negative for abdominal pain, nausea, vomiting, diarrhea, and constipation, : Negative for injury, bleeding, discharge, and swelling, MS/Extremity: Negative for injury and deformity, Skin: Negative for injury, rash, and discoloration, Neuro: Negative for headache, weakness, numbness, tingling, and seizure. 18:20 Back: Positive for pain at rest, pain with movement, of the low back area. Exam: 17:53 Constitutional: This is a well developed, well nourished patient who is awake, alert, snw and in no acute distress. Head/Face: Normocephalic, atraumatic. Eyes: Pupils equal round and reactive to light, extra-ocular motions intact. Lids and lashes normal. Conjunctiva and sclera are non-icteric and not injected. Cornea within normal limits. Periorbital areas with no swelling, redness, or edema. ENT: Nares patent. No nasal discharge, no septal abnormalities noted. Tympanic membranes are normal and external auditory canals are clear. Oropharynx with no redness, swelling, or masses, exudates, or evidence of obstruction, uvula midline. Mucous membranes moist. Neck: Trachea midline, no thyromegaly or masses palpated, and no cervical lymphadenopathy. Supple, full range of motion without nuchal rigidity, or vertebral point tenderness. No Meningismus. Chest/axilla: Normal chest wall appearance and motion. Nontender with no deformity. No lesions are appreciated. Cardiovascular: Regular rate and rhythm with a normal S1 and S2. No gallops, murmurs, or rubs. Normal PMI, no JVD. No pulse deficits. Respiratory: Lungs have equal breath sounds bilaterally, clear to auscultation and percussion. No rales, rhonchi or wheezes noted. No increased work of breathing, no retractions or nasal flaring. Skin: Warm, dry with normal turgor. Normal color with no rashes, no lesions, and no evidence of cellulitis. MS/ Extremity: Pulses equal, no cyanosis. Neurovascular intact. Full, normal range of motion. Neuro: Awake and alert, GCS 15, oriented to person, place, time, and situation. Cranial nerves II-XII grossly intact. Motor strength 5/5 in all extremities. Sensory grossly intact. Cerebellar exam normal. Normal gait. Psych: Awake, alert, with orientation to person, place and time. Behavior, mood, and affect are within normal limits. 17:53 Abdomen/GI: Inspection: obese scar(s), recent esophageal surgery, Bowel sounds: active, all quadrants. Vital Signs: 16:32 BP 141 / 88; Pulse 107; Resp 22; Temp 97; Pulse Ox 96% ; Weight 114.31 kg; Height 5 ft. sv 11 in. (180.34 cm); Pain 10/10; 16:32 Body Mass Index 35.15 (114.31 kg, 180.34 cm) sv MDM: 17:01 Patient medically screened. snw 18:07 Data reviewed: vital signs, nurses notes. Data interpreted: Pulse oximetry: on room air snw is 96 %. Interpretation: acceptable. Counseling: I had a detailed discussion with the patient and/or guardian regarding: the historical points, exam findings, and any diagnostic results supporting the discharge/admit diagnosis, the presence of at least one elevated blood pressure reading (>120/80) during this emergency department visit, lab results, the need for outpatient follow up, to return to the emergency department if symptoms worsen or persist or if there are any questions or concerns that arise at home. Special discussion: I have referred the patient to see his PCP for further evaluation of high blood pressure. Based on the history and exam findings, there is no indication for further emergent testing or inpatient evaluation. I discussed with the patient/guardian the need to see the primary care provider for further evaluation of the symptoms. 05/19 17:01 Order name: Urine Culture snw 05/19 17:01 Order name: Urine Microscopic Only; Complete Time: 17:53 snw 05/19 17:21 Order name: Urine Dipstick--Ancillary (enter results) bd 05/19 17:21 Order name: Urine --Ancillary (enter results) bd 05/19 17:01 Order name: Urine Dipstick-Ancillary (obtain specimen); Complete Time: 17:11 snw Administered Medications: 18:05 Drug: LevaQUIN 500 mg Route: PO; aa5 18:25 Follow up: Response: No adverse reaction aa5 18:05 Drug: TORadol 60 mg Route: IM; Site: right gluteus; aa5 18:25 Follow up: Response: No adverse reaction aa5 Disposition: 05/20 15:21 Co-signature as Attending Physician, Francisco Browning MD. Disposition: 05/19/18 17:44 Discharged to Home. Impression: Urinary tract infection, site not specified, Low back pain. - Condition is Stable. - Discharge Instructions: Back Pain, Adult, Musculoskeletal Pain, Urinary Tract Infection, Adult, Rehydration, Adult, Heat Therapy. - Prescriptions for Voltaren 1 % Topical gel - apply 2 gram by TOPICAL route 4 times per day; 50 gram. Macrobid 100 mg Oral Capsule - take 1 capsule by ORAL route every 12 hours for 10 days; 20 capsule. - Medication Reconciliation Form, Thank You Letter, Antibiotic Education, Prescription Opioid Use form. - Follow up: Private Physician; When: 2 - 3 days; Reason: Recheck today's complaints, Continuance of care, Re-evaluation by your physician. Follow up: Emergency Department; When: As needed; Reason: Worsening of condition. Signatures: Dispatcher [employer] EDSweetie Hudson RN RN Lindsey Sloan, [employer] TELEPHONE ENGINEER-Csnw Gladys Slaughter RN RN aa5 Francisco Browning MD MD gs Corrections: (The following items were deleted from the chart) 05/19 18:27 17:44 05/19/2018 17:44 Discharged to Home. Impression: Urinary tract infection, site aa5 not specified; Low back pain. Condition is Stable. Forms are Medication Reconciliation Form, Thank You Letter, Antibiotic Education, Prescription Opioid Use. Follow up: Private Physician; When: 2 - 3 days; Reason: Recheck today's complaints, Continuance of care, Re-evaluation by your physician. Follow up: Emergency Department; When: As needed; Reason: Worsening of condition. snw
--- NOTE | 2018-05-19 17:45 | ER ---
Nurse's Notes [facility] Name: Renetta Ramsay Age: 52 yrs Sex: Female : 1965 Arrival Date: 05/19/2018 Time: 16:18 Bed 6 Private MD: Diagnosis: Urinary tract infection, site not specified;Low back pain Presentation: 05/19 16:31 Presenting complaint: Patient states: right low back pain started a couple of days ago. sv c/o dark yellow urine. Transition of care: patient was not received from another setting of care. Onset of symptoms was April 2018. Care prior to arrival: None. 16:31 Method Of Arrival: Wheelchair sv 16:31 Acuity: OLY 3 sv 17:18 Risk Assessment: Do you want to hurt yourself or someone else? Patient reports no la1 desire to harm self or others. Initial Sepsis Screen: Does the patient meet any 2 criteria? No. Patient's initial sepsis screen is negative. Does the patient have a suspected source of infection? No. Patient's initial sepsis screen is negative. Triage Assessment: 16:31 General: Appears in no apparent distress. uncomfortable, Behavior is calm, cooperative, sv appropriate for age. Pain: Complains of pain in right low back Pain currently is 10 out of 10 on a pain scale. Neuro: Level of Consciousness is awake, alert, obeys commands, Oriented to person, place, time, situation, Moves all extremities. Full function Gait is steady. Respiratory: Respiratory effort is even, unlabored, Respiratory pattern is regular, symmetrical. : Denies burning with urination, urinary frequency. Historical: - Allergies: 16:32 Amoxicillin; sv 16:32 ARIPIPRAZOLE; sv 16:32 Demerol; sv 16:32 PENICILLINS; sv 16:32 pentazocine lactate; sv 16:32 Talwin; sv - PMHx: 16:32 ADD/ADHD; Bipolar disorder; High Cholesterol; Chronic pain; Depression; Diabetes - sv NIDDM; osteomyelitis; Pancreatitis; - Immunization history:: Adult Immunizations up to date, Flu vaccine is not up to date. - Social history:: Smoking status: Patient uses tobacco products, smokes one-half pack cigarettes per day. - Ebola Screening: : No symptoms or risks identified at this time. Screenin:17 Abuse screen:. Nutritional screening: No deficits noted. Tuberculosis screening: No la1 symptoms or risk factors identified. Fall Risk None identified. Assessment: 17:16 General: Appears uncomfortable, Behavior is calm, cooperative. Pain: Complains of pain la1 in left low back and right low back. Neuro: Level of Consciousness is awake, alert, obeys commands, Oriented to person, place, time, situation. Cardiovascular: Capillary refill < 3 seconds Patient's skin is warm and dry. Respiratory: Airway is patent Respiratory effort is even, unlabored, Respiratory pattern is regular, symmetrical. GI: No signs and/or symptoms were reported involving the gastrointestinal system. : Reports urine is darker than usual. Musculoskeletal: Range of motion: intact in all extremities. 18:25 Reassessment: Patient is alert, oriented x 3, equal unlabored respirations, skin aa5 warm/dry/pink. Vital Signs: 16:32 BP 141 / 88; Pulse 107; Resp 22; Temp 97; Pulse Ox 96% ; Weight 114.31 kg; Height 5 ft. sv 11 in. (180.34 cm); Pain 10/10; 16:32 Body Mass Index 35.15 (114.31 kg, 180.34 cm) sv ED Course: 16:18 Patient arrived in ED. mr 16:31 Triage completed. sv 16:32 Arm band placed on. sv 17:00 [facility]nham [facility] snw 17:01 Francisco Browning MD is Attending Physician. snw 17:16 Selvin Edwards, MARK is Primary Nurse. la1 17:17 Call light in reach. Side rails up X 1. la1 18:20 No provider procedures requiring assistance completed. aa5 18:20 Patient did not have IV access during this emergency room visit. aa5 Administered Medications: 18:05 Drug: LevaQUIN 500 mg Route: PO; aa5 18:25 Follow up: Response: No adverse reaction aa5 18:05 Drug: TORadol 60 mg Route: IM; Site: right gluteus; aa5 18:25 Follow up: Response: No adverse reaction aa5 Outcome: 17:44 Discharge ordered by . snw 18:25 Discharged to home ambulatory. aa5 18:25 Condition: stable 18:25 Discharge instructions given to patient, Instructed on discharge instructions, follow up and referral plans. medication usage, Demonstrated understanding of instructions, follow-up care, medications, Prescriptions given X 2. 18:27 Patient left the ED. aa5 Signatures: Sweetie Jenkins RN RN sv Therrien, Shelly, DIRECTOR OF LABOR AND DELIVERY-C DIRECTOR OF LABOR AND DELIVERY-Marileew Syl Nickerson mr SlaughterGladys, RN RN aa5 Selvin Edwards RN RN la1
[2018-05-19] MEDS ORDERED: KETOROLAC 30 MG/ML INJ ONE (18:07)
[2018-05-19] MEDS ORDERED: levoFLOXacin 500 MG TAB ONE (18:07)
[2018-05-19 18:33] VITALS: BP 141/88; TEMP 97; O2SAT 96
[2018-05-19 20:15] LABS: Urine Blood NEGATIVE (NEG); Urine Glucose NEGATIVE (NEG); Urine Protein NEGATIVE (NEG); Urine Specific Gravity >1.030 (1.005-1.030); Urine pH 5.5 (5.0-7.0)
== END 2018-05-19 18:27 | disposition home or self-care (01) ==
LOC: ER 16:15
DX: N39.0 Urinary tract infection, site not specified (principal); Z88.0 Allergy status to penicillin; Z88.1 Allergy status to other antibiotic agents; Z88.8 Allergy status to other drugs, medicaments and biological substances; F17.210 Nicotine dependence, cigarettes, uncomplicated
CPT/HCPCS: 81003; 81015; 81025; 87086; 87088; 96372; 99283

== ENCOUNTER 2018-06-09 02:28 | Observation (INO) | payer OTHER ==
[2018-06-09 03:42] LABS: Protime INR 1.13
[2018-06-09 03:43] LABS: Absolute Lymphocytes (CBC) 1.9 K/uL (0.7-4.9); Absolute Monocytes 0.7 K/uL (0.1-1.3); Absolute Neutrophil 6.1 K/uL (1.8-8.0); Basophils % 0.3 % (0-1.3); Eosinophils % 1.8 % (0-4.4); Hematocrit 35.8 % (36.0-45.0); Lymphocytes % 21.2 % (15.3-44.8); MCH 30.4 pg (27.0-35.0); MPV 9.2 fL (7.6-11.3); Monocytes % 7.6 % (3.3-12.3); RBC Red Blood Cell Count 4.07 M/uL (3.86-4.86)
[2018-06-09 03:55] LABS: ALT/SGPT 44 U/L (12-78); AST/SGOT 25 U/L (15-37); Albumin 3.6 g/dL (3.4-5.0); Alkaline Phosphatase 73 U/L (45-117); BUN Blood Urea Nitrogen 28 mg/dL (7-18); Bicarbonate 27 mmol/L (21-32); Bilirubin Direct < 0.1 mg/dL (0-0.2); Bilirubin Total 0.3 mg/dL (0.2-1.0); Glucose Level 286 mg/dL (74-106); Potassium 4.2 mmol/L (3.5-5.1); Sodium Level 137 mmol/L (136-145)
[2018-06-09 03:56] LABS: Magnesium 1.6 mg/dL (1.8-2.4); NT PRO-BNP 17 pg/mL (<125); Troponin (Emerg Dept Use Only) < 0.02 ng/mL (0.0-0.045)
[2018-06-09] MEDS ORDERED: METHYLPREDNISOLONE 125 MG INJ ONE (04:07)
[2018-06-09] MEDS ORDERED: MAGNESIUM SULFATE 1 gm IVPB 1 GM/100 ML BAG IV ONE (05:00)
--- NOTE | 2018-06-09 05:09 | ER ---
Nurse's Notes [facility] Name: Renetta Ramsay Age: 52 yrs Sex: Female : 1965 Arrival Date: 06/09/2018 Time: 02:32 Bed 19 Private MD: Diagnosis: DVT right leg. Chest pain. Dyspnea. Chronic renal disease Presentation: 06/09 02:47 Presenting complaint: Patient states: right thigh and right calf swelling noticed ak1 Sunday. pt c/o wound to right middle toe. pt with steady gait to ER19. Transition of care: patient was not received from another setting of care. Onset of symptoms is unknown. Risk Assessment: Do you want to hurt yourself or someone else? Patient reports no desire to harm self or others. Initial Sepsis Screen: Does the patient meet any 2 criteria? No. Patient's initial sepsis screen is negative. Does the patient have a suspected source of infection? No. Patient's initial sepsis screen is negative. Note pt stated her mother took her off her xarelto since her last ER visit. Care prior to arrival: None. 02:47 Method Of Arrival: Ambulatory ak1 02:47 Acuity: OLY 3 ak1 Triage Assessment: 02:53 General: Appears in no apparent distress. Behavior is calm, cooperative. Pain: ak1 Complains of pain in right leg. EENT: No signs and/or symptoms were reported regarding the EENT system. Neuro: No deficits noted. Cardiovascular: No deficits noted. Respiratory: No deficits noted. GI: No signs and/or symptoms were reported involving the gastrointestinal system. : No signs and/or symptoms were reported regarding the genitourinary system. Derm: No signs and/or symptoms reported regarding the dermatologic system. Musculoskeletal: Reports pain in right leg pt pain and swelling to right thigh and calf since Sunday. 02:56 GI: Reports no GI complaints at time of triage. ak1 Historical: - Allergies: 02:53 Amoxicillin; ak1 02:53 ARIPIPRAZOLE; ak1 02:53 Talwin; ak1 02:53 pentazocine lactate; ak1 02:53 PENICILLINS; ak1 02:53 Demerol; ak1 - Home Meds: 02:53 atorvastatin 20 mg Oral tab 1 tab once daily [Active]; Wellbutrin XL 150 mg Oral Tb24 1 ak1 tab once daily [Active]; Depakote 500 mg Oral TbEC 3 tabs 3 times per day [Active]; Lyrica 150 mg Oral 3 times per day [Active]; olanzapine 5 mg Oral TbDL 1 tab once daily [Active]; pantoprazole 40 mg Oral TbEC 1 tab once daily [Active]; Topamax Oral [Active]; venlafaxine 150 mg Oral cp24 1 cap once daily [Active]; - PMHx: 02:53 ADD/ADHD; Bipolar disorder; Chronic pain; Depression; Diabetes - NIDDM; High ak1 Cholesterol; osteomyelitis; Pancreatitis; - Immunization history:: Adult Immunizations unknown. - Social history:: Smoking status: Patient uses tobacco products, smokes one-half pack cigarettes per day. - Ebola Screening: : No symptoms or risks identified at this time. Screenin:55 Abuse screen: Denies threats or abuse. Denies injuries from another. Nutritional ak1 screening: No deficits noted. Tuberculosis screening: Fall Risk None identified. Assessment: 02:56 GI: Abdomen is round. ak1 02:57 Reassessment: Patient appears in no apparent distress at this time. No changes from ak1 previously documented assessment. see triage assessment. 03:27 Reassessment: Patient appears in no apparent distress at this time. No changes from ak1 previously documented assessment. Patient is alert, oriented x 3, equal unlabored respirations, skin warm/dry/pink. 05:45 Reassessment: Patient appears in no apparent distress at this time. No changes from ak1 previously documented assessment. Patient and/or family updated on plan of care and expected duration. Pain level reassessed. Patient is alert, oriented x 3, equal unlabored respirations, skin warm/dry/pink. pt resting with eyes closed, resp even and unlabored. . 06:19 Reassessment: Patient appears in no apparent distress at this time. No changes from ak1 previously documented assessment. 07:15 Reassessment: Patient appears in no apparent distress at this time. Patient and/or em family updated on plan of care and expected duration. Pain level reassessed. Patient is alert, oriented x 3, equal unlabored respirations, skin warm/dry/pink. Patient denies pain at this time. 07:57 Reassessment: report called to MARK Perdomo on 2nd floor. em Vital Signs: 02:49 BP 132 / 64; Pulse 94; Resp 18; Temp 98.0(O); Pulse Ox 97% on R/A; Weight 113.4 kg (R); ak1 Height 5 ft. 11 in. (180.34 cm) (R); Pain 9/10; 03:27 BP 126 / 75; Pulse 70; Resp 18; Temp 98; Pulse Ox 97% on R/A; Pain 9/10; ak1 05:46 BP 127 / 68; Pulse 79; Resp 16; Temp 97.9; Pulse Ox 97% on R/A; ak1 06:19 BP 134 / 71; Pulse 79; Resp 16; Temp 97.9; Pulse Ox 97% on R/A; Pain 0/10; ak1 06:38 BP 129 / 82; Pulse 80; Resp 16; Temp 97.9; Pulse Ox 97% on R/A; Pain 0/10; ak1 07:30 BP 122 / 69; Pulse 87; Resp 18; Pulse Ox 99% on R/A; Pain 0/10; em 02:49 Body Mass Index 34.87 (113.40 kg, 180.34 cm) ak1 ED Course: 02:32 Patient arrived in ED. es 02:45 Hal Fink MD is Attending Physician. pkl 02:47 Leticia Xiong, RN is Primary Nurse. ak1 02:48 Triage completed. ak1 02:49 Arm band placed on Patient placed in an exam room, on a stretcher, on pulse oximetry, ak1 Patient notified of wait time. 02:55 Patient has correct armband on for positive identification. Placed in gown. Bed in low ak1 position. Call light in reach. Side rails up X 1. Pulse ox on. NIBP on. 03:12 Initial lab(s) drawn, by me, sent to lab. EKG done, by ED staff, reviewed by Hal newsome MD. Inserted saline lock: 22 gauge in right wrist, using aseptic technique. Blood collected. 03:21 XRAY Chest (1 view) In Process Unspecified. EDMS 04:10 Ultrasound completed. Patient tolerated well. Notified ED Physician JEN. sg3 05:03 Smita Ramos MD is Hospitalizing Provider. pkl 05:46 No provider procedures requiring assistance completed. Patient admitted, IV remains in ak1 place. Administered Medications: 04:09 Drug: SOLU-Medrol 125 mg Route: IVP; Site: right wrist; ak1 04:54 Follow up: Response: No adverse reaction ak1 05:00 Drug: Magnesium Sulfate 1 grams Route: IVPB; Infused Over: 1 hrs; Site: right wrist; ak1 06:00 Follow up: IV Status: Completed infusion ak1 Outcome: 05:08 Decision to Hospitalize by Provider. pkl 05:46 Condition: stable ak1 05:46 Instructed on the need for admit. 08:01 Admitted to Med/surg accompanied by tech, via wheelchair, room 216, with chart, Report em called to MARK Perdomo 08:07 Patient left the ED. em Signatures: Dispatcher [employer] Hal Cooper MD MD pkl Salyer, Edna es Munoz, Edgar, METAL FENCE ERECTOR METAL FENCE ERECTOR em Leticia Xiong RN RN ak1 Beckie Mann sg3 Corrections: (The following items were deleted from the chart) 04:51 04:44 In radiology for Extremity Venous Uni Ltd+US.DEVYN. YANCY sg3
--- NOTE | 2018-06-09 05:09 | EDPHYS ---
Physician Documentation [facility] Name: Renetta Ramsay Age: 52 yrs Sex: Female : 1965 Arrival Date: 06/09/2018 Time: 02:32 Bed 19 Private MD: ED Physician Hal Fink HPI: 06/09 03:01 This 52 yrs old Female presents to ER via Ambulatory with complaints of Leg pkl Swelling, Dizziness, Nausea. 03:01 The patient presents with pain, that is acute, swelling. The complaints affect the pkl right leg. Onset: The symptoms/episode began/occurred 3 day(s) ago. Associated signs and symptoms: Pertinent positives: chest pain. Patient has H/O DVT. Patient stopped taking Xeralto about 1 month on her own. Historical: - Allergies: 02:53 Amoxicillin; ak1 02:53 ARIPIPRAZOLE; ak1 02:53 Talwin; ak1 02:53 pentazocine lactate; ak1 02:53 PENICILLINS; ak1 02:53 Demerol; ak1 - Home Meds: 02:53 atorvastatin 20 mg Oral tab 1 tab once daily [Active]; Wellbutrin XL 150 mg Oral Tb24 1 ak1 tab once daily [Active]; Depakote 500 mg Oral TbEC 3 tabs 3 times per day [Active]; Lyrica 150 mg Oral 3 times per day [Active]; olanzapine 5 mg Oral TbDL 1 tab once daily [Active]; pantoprazole 40 mg Oral TbEC 1 tab once daily [Active]; Topamax Oral [Active]; venlafaxine 150 mg Oral cp24 1 cap once daily [Active]; - PMHx: 02:53 ADD/ADHD; Bipolar disorder; Chronic pain; Depression; Diabetes - NIDDM; High ak1 Cholesterol; osteomyelitis; Pancreatitis; - Immunization history:: Adult Immunizations unknown. - Social history:: Smoking status: Patient uses tobacco products, smokes one-half pack cigarettes per day. - Ebola Screening: : No symptoms or risks identified at this time. ROS: 03:01 Eyes: Negative for injury, pain, redness, and discharge, ENT: Negative for injury, pkl pain, and discharge, Neck: Negative for injury, pain, and swelling. 03:01 Cardiovascular: Positive for chest pain. 03:01 Respiratory: Negative for cough, shortness of breath. 03:01 Abdomen/GI: Negative for abdominal pain, nausea, vomiting, and diarrhea. 03:01 Back: Negative for acute changes. 03:01 : Negative for urinary symptoms. 03:01 MS/extremity: Positive for pain, swelling, of the right leg. 03:01 Skin: Negative for rash. 03:01 Neuro: Negative for altered mental status. Exam: 03:01 Head/Face: Normocephalic, atraumatic. Eyes: Pupils equal round and reactive to light, pkl extra-ocular motions intact. Lids and lashes normal. Conjunctiva and sclera are non-icteric and not injected. Cornea within normal limits. Periorbital areas with no swelling, redness, or edema. ENT: Nares patent. No nasal discharge, no septal abnormalities noted. Tympanic membranes are normal and external auditory canals are clear. Oropharynx with no redness, swelling, or masses, exudates, or evidence of obstruction, uvula midline. Mucous membranes moist. Neck: Trachea midline, no thyromegaly or masses palpated, and no cervical lymphadenopathy. Supple, full range of motion without nuchal rigidity, or vertebral point tenderness. No Meningismus. Chest/axilla: Normal chest wall appearance and motion. Nontender with no deformity. No lesions are appreciated. Cardiovascular: Regular rate and rhythm with a normal S1 and S2. No gallops, murmurs, or rubs. Normal PMI, no JVD. No pulse deficits. Respiratory: Lungs have equal breath sounds bilaterally, clear to auscultation and percussion. No rales, rhonchi or wheezes noted. No increased work of breathing, no retractions or nasal flaring. Abdomen/GI: Soft, non-tender, with normal bowel sounds. No distension or tympany. No guarding or rebound. No evidence of tenderness throughout. Back: No spinal tenderness. No costovertebral tenderness. Full range of motion. Skin: Warm, dry with normal turgor. Normal color with no rashes, no lesions, and no evidence of cellulitis. Neuro: Awake and alert, GCS 15, oriented to person, place, time, and situation. Cranial nerves II-XII grossly intact. Motor strength 5/5 in all extremities. Sensory grossly intact. Cerebellar exam normal. Normal gait. 03:01 Musculoskeletal/extremity: Extremities: grossly normal except: noted in the right leg: erythema, pain, tenderness. Vital Signs: 02:49 BP 132 / 64; Pulse 94; Resp 18; Temp 98.0(O); Pulse Ox 97% on R/A; Weight 113.4 kg (R); ak1 Height 5 ft. 11 in. (180.34 cm) (R); Pain 9/10; 03:27 BP 126 / 75; Pulse 70; Resp 18; Temp 98; Pulse Ox 97% on R/A; Pain 9/10; ak1 05:46 BP 127 / 68; Pulse 79; Resp 16; Temp 97.9; Pulse Ox 97% on R/A; ak1 06:19 BP 134 / 71; Pulse 79; Resp 16; Temp 97.9; Pulse Ox 97% on R/A; Pain 0/10; ak1 06:38 BP 129 / 82; Pulse 80; Resp 16; Temp 97.9; Pulse Ox 97% on R/A; Pain 0/10; ak1 07:30 BP 122 / 69; Pulse 87; Resp 18; Pulse Ox 99% on R/A; Pain 0/10; em 02:49 Body Mass Index 34.87 (113.40 kg, 180.34 cm) ak1 MDM: 02:45 Patient medically screened. pkl 05:02 Data reviewed: vital signs, nurses notes, lab test result(s), EKG, radiologic studies, pkl plain films, ultrasound. 06/09 03:00 Order name: Basic Metabolic Panel; Complete Time: 04:31 pkl 06/09 03:00 Order name: CBC with Diff; Complete Time: 03:55 pkl 06/09 03:00 Order name: LFT's; Complete Time: 04:31 pkl 06/09 03:00 Order name: Magnesium; Complete Time: 04:31 pkl 06/09 03:00 Order name: NT PRO-BNP; Complete Time: 04:31 pkl 06/09 03:00 Order name: PT-INR; Complete Time: 03:55 pkl 06/09 03:00 Order name: Troponin (emerg Dept Use Only); Complete Time: 04:31 pkl 06/09 03:00 Order name: XRAY Chest (1 view) pkl 06/09 03:00 Order name: EKG; Complete Time: 03:01 pkl 06/09 03:00 Order name: Cardiac monitoring; Complete Time: 03:11 [facility] 06/09 03:00 Order name: EKG - Nurse/Tech; Complete Time: 03:11 pk 06/09 03:00 Order name: US Extremity Venous Unilateral Ltd pk 06/09 03:00 Order name: IV Saline Lock; Complete Time: 03:12 pkl 06/09 03:00 Order name: Labs collected and sent; Complete Time: 03:12 pk 06/09 03:00 Order name: O2 Per Protocol; Complete Time: 03:01 pk 06/09 03:00 Order name: O2 Sat Monitoring; Complete Time: 03:01 pkl Administered Medications: 04:09 Drug: SOLU-Medrol 125 mg Route: IVP; Site: right wrist; ak1 04:54 Follow up: Response: No adverse reaction ak1 05:00 Drug: Magnesium Sulfate 1 grams Route: IVPB; Infused Over: 1 hrs; Site: right wrist; ak1 06:00 Follow up: IV Status: Completed infusion ak1 Disposition: 06/09/18 05:08 Hospitalization ordered by Smita Ramos for Inpatient Admission. Preliminary diagnosis is DVT right leg. Chest pain. Dyspnea. Chronic renal disease. - Bed requested for Telemetry/MedSurg (Inpatient). - Status is Inpatient Admission. em - Condition is Fair. - Problem is new. - Symptoms are unchanged. UTI on Admission? No Signatures: Dispatcher [employer] Jennifer Vivar RN RN kl Lam, Pin, MD MD pkAnders Bo, URGENT CARE PHYSICIAN URGENT CARE PHYSICIAN Leticia Hussein RN RN ak1 Elliott Augustin mw2 Corrections: (The following items were deleted from the chart) 06:38 05:08 Hospitalization Ordered by Smita Ramos MD for Inpatient Admission. Preliminary mw2 diagnosis is DVT right leg. Chest pain. Dyspnea. Chronic renal disease. Bed requested for Telemetry/MedSurg (Inpatient). Status is Inpatient Admission. Condition is Fair. Problem is new. Symptoms are unchanged. UTI on Admission? No. pkl 06:38 06:38 06/09/2018 05:08 Hospitalization Ordered by Smita Ramos MD for Inpatient kl Admission. Preliminary diagnosis is DVT right leg. Chest pain. Dyspnea. Chronic renal disease. Bed requested for Telemetry/MedSurg (Inpatient). Status is Inpatient Admission. Condition is Fair. Problem is new. Symptoms are unchanged. UTI on Admission? No. mw2 08:07 06:38 06/09/2018 05:08 Hospitalization Ordered by Smita Ramos MD for Inpatient em Admission. Preliminary diagnosis is DVT right leg. Chest pain. Dyspnea. Chronic renal disease. Bed requested for Telemetry/MedSurg (Inpatient). Status is Inpatient Admission. Condition is Fair. Problem is new. Symptoms are unchanged. UTI on Admission? No. kl
--- NOTE | 2018-06-09 05:49 | EKG ---
Test Date: 2018-06-09 Test Time: 03:08:14 Clinical Program Director: BERTO MEASUREMENT RESULTS: Intervals: Rate: 82 AL: 156 QRSD: 94 QT: 378 QTc: 441 [place]: P: 60 AL: 156 QRS: 90 T: 60 INTERPRETIVE STATEMENTS: Normal sinus rhythm Rightward axis Low voltage QRS Borderline ECG Compared to ECG 08/30/2017 12:12:34 Right-axis deviation now present Electronically Signed On 06-09-18 05:48:33 CAREER SERVICES OFFICER by Maximino López
[2018-06-09] MEDS ORDERED: NA CHLORIDE 0.9% 1,000 ML IV ONE (05:50)
--- NOTE | 2018-06-09 06:13 | P.HP ---
Certification for Inpatient Patient admitted to: Inpatient With expected LOS: >2 Midnights Practitioner: I am a practitioner with admitting privileges, knowledge of patient current condition, hospital course, and medical plan of care. Services: Services provided to patient in accordance with Admission requirements found in Title 42 Section 412.3 of the Code of Federal Regulations Patient History Date of Service: 06/09/18 Reason for admission: Acute DVT History of Present Illness: Ms Ramsay is a 52-year-old woman with multiple chronic medical problems including tobacco abuse, bipolar disorder, history of DVT who was supposed to be on Xarelto however she has not been taking this medication for the last month. Since 2 days ago, the patient started noticing swelling her right leg associated with pain in her calf. She denied shortness of breath, however she has had some chest pain. She also has chronic cough lately with yellow secretions without any blood on it. Lab work remarkable for abnormal renal function, creatinine 1.6. Lower extremity Doppler ultrasound shows acute DVT of her right leg. Patient has no fever. BP within normal limits, she is somewhat tachycardic 94 bpm O2 sat 94% on room. Allergies amoxicillin Allergy (Verified 09/03/17 11:26) Unknown aripiprazole [From Abilify] Allergy (Verified 09/03/17 11:26) Unknown meperidine [From Demerol] Allergy (Verified 09/03/17 11:26) Unknown Penicillins Allergy (Verified 09/03/17 11:26) Unknown pentazocine lactate [From Talwin] Allergy (Verified 09/03/17 11:26) Rash Home Medications: Topiramate [Topamax*] 200 mg PO BID 02/19/13 Divalproex Sodium [Depakote ER] 1,000 mg PO BEDTIME 02/10/15 Olanzapine [Zyprexa] 5 mg PO BEDTIME 02/10/15 Pantoprazole Sodium [Protonix] 40 mg PO BID 02/10/15 Venlafaxine HCl *Xr* [Effexor XR] 125 mg PO KCQHA4AT 02/10/15 ALPRAZolam [Xanax*] 1 mg PO BID 03/24/16 Rivaroxaban [Xarelto] 20 mg PO BEDTIME 03/24/16 Atorvastatin Calcium [Lipitor*] 20 mg PO BEDTIME 06/18/17 Insulin Detemir [Levemir] 50 unit SQ DAILY AT [facility] 06/18/17 Insulin Detemir [Levemir] 70 unit SQ DAILY WITH BREAKFAST 06/18/17 Venlafaxine HCl [Effexor*] 75 mg PO BEDTIME 06/18/17 Colchicine [Colcrys *] 0.6 mg PO BID #14 tab 08/23/17 Mupirocin Oint [Bactroban 2% Ointment*] 1 appl TOP BID #1 tube 08/23/17 Doxycycline Hyclate [Vibramycin] 100 mg PO BID 08/30/17 Pregabalin [Lyrica] 150 mg PO BID 08/30/17 - Past Medical/Surgical History Diabetic: Yes -: Diabetes mellitus type 2 -: Hyperlipidemia -: Bipolar disorder, [facility] -: Diverticulosis -: Right DVT with bilateral PE -: Carpal tunnel syndrome -: History of suicidal ideation -: Asthma -: Obstructive sleep apnea -: Tobacco abuse -: Mild sleep apnea -: dvt- right leg -: Appendectomy -: Hysterectomy -: Left knee surgery -: Carpal tunnel repair of the left wrist -: Colon resection due to diverticulitis -: cervical laminectomy infusion, lumbar herniated disc repair -: I/D of the left toe Psychosocial/ Personal History: She has never been . She has 1 son. She does not work. She currently lives with her mother. - Family History Father -: Heart disease Mother -: Heart disease, Hypertension, Diabetes, Cancer Notes: breast cancer - Social History Smoking Status: Current every day smoker Counseled patient to stop smoking for: less than 10 minutes Alcohol use: No CD- Drugs: No Caffeine use: Yes Place of Residence: Home Review of Systems 10-point ROS is otherwise unremarkable Physical Examination - Physical Exam General: Alert, In no apparent distress HEENT: Atraumatic, PERRLA, Mucous membr. moist/pink, EOMI, Sclerae nonicteric Neck: Supple, 2+ carotid pulse no bruit, No LAD, Without JVD or thyroid abnormality Respiratory: Clear to auscultation bilaterally, Normal air movement Cardiovascular: Regular rate/rhythm, Normal S1 S2 Gastrointestinal: Normal bowel sounds, No tenderness Musculoskeletal: Swelling (Right leg), Tenderness (Right leg) Integumentary: No rashes Neurological: Normal speech, Normal strength at 5/5 x4 extr, Normal tone, Normal affect Lymphatics: No axilla or inguinal lymphadenopathy - Studies Laboratory Data (last 24 hrs) 06/09/18 03:10: PT 13.3 H, INR 1.13 06/09/18 03:10: WBC 8.9, Hgb 12.4, Hct 35.8 L, Plt Count 181 06/09/18 03:10: Sodium 137, Potassium 4.2, BUN 28 H, Creatinine 1.60 H, Glucose 286 H, Magnesium 1.6 L, Total Bilirubin 0.3, AST 25, ALT 44, Alkaline Phosphatase 73 Assessment and Plan - Problems (Diagnosis) (1) CKD (chronic kidney disease) stage 3, GFR 30-59 ml/min Current Visit: No Status: Acute (2) Bipolar disorder Onset Date: 02/14/16 Current Visit: No Status: Chronic Qualifiers: Active/Remission status: currently active Current bipolar episode type: depressed Current episode severity: moderate Qualified Code(s): F31.32 - Bipolar disorder, current episode depressed, moderate (3) Diabetes mellitus Onset Date: 02/01/15 Current Visit: No Status: Chronic Qualifiers: Diabetes mellitus type: type 2 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 use Diabetes mellitus complication status: with skin complications Diabetes mellitus complication detail: with foot ulcer Qualified Code(s): E11.621 - Type 2 diabetes mellitus with foot ulcer (4) Hypertension Onset Date: 01/12/17 Current Visit: No Status: Chronic Qualifiers: Hypertension type: essential hypertension (5) DVT (deep venous thrombosis) Current Visit: No Status: Resolved Qualifiers: DVT location: lower extremity Affected thrombotic vein of extremity: unspecified lower extremity distal vein Chronicity: acute Laterality: right Qualified Code(s): I82.4Z1 - Acute embolism and thrombosis of unspecified deep veins of right distal lower extremity - Plan The patient will be admitted to the hospital due to acute DVT. Will start Eliquis since her renal function is is poor. Will order V/Q scan to rule out PE. - Advance Directives Does patient have a Living Will: No Does patient have a Durable POA for Healthcare: No - Code Status/Comfort Care Code Status Assessed: Yes Code Status: Full Code
[2018-06-09] MEDS ORDERED: ONDANSETRON 4 MG/2 ML VIAL IV PRN (08:08)
[2018-06-09] MEDS ORDERED: ACETAMINOPHEN 500 MG TAB PO PRN (08:08)
[2018-06-09 09:00] VITALS: BMI 35.4
[2018-06-09] MEDS: NA CHLORIDE 0.9% 1,000 ML IV SCH ×2 (10:00→17:55)
[2018-06-09] MEDS: INSULIN -REGULAR HUMAN 50 UNIT/0.5 ML ML SQ SCH ×5 (10:01→20:23)
[2018-06-09] MEDS: APIXABAN 5 MG TABLET PO SCH ×2 (10:01→20:23)
--- NOTE | 2018-06-09 10:19 | RAD REPORT ---
EXAM DESCRIPTION: NM - Vent Perfusion VQ Scan - 06/09/2018 10:03 am CLINICAL HISTORY: Rule out PE Chest pain, shortness of breath COMPARISON: BREAST/AXILLA, LIMITED dated 05/29/2017 TECHNIQUE: 19.9mCi Xe-133 gas inhaled and 7.4mCi Tc-MAA IV. Planar ventilation scan was performed in posterior projection after Xe-133 gas inhalation (wash-in, e quilibrium, and wash-out phases) followed by perfusion scan with Tc-MAA IV in multiple projections. Examination is correlated with recent chest radiograph. FINDINGS: Normal ventilation with appropriate wash-out and no significant air-trapping. No mismatched segmental perfusion defect. IMPRESSION: Very low probability of acute pulmonary embolism.
--- NOTE | 2018-06-09 10:53 | RAD REPORT ---
EXAM DESCRIPTION: US - Extremity Venous Uni Ltd - 06/09/2018 4:45 am CLINICAL HISTORY: Pain;Swelling Leg swelling and edema. COMPARISON: Extrem Venous W Compress [place] dated 02/12/2016 FINDINGS: Right lower extremity venous system was interrogated with Doppler technique. Thrombus is p resent in the right distal femoral vein to the popliteal vein. IMPRESSION: DVT is noted from the distal right femoral vein to the popliteal vein.
[2018-06-09] MEDS ORDERED: INFLUENZA VACCINE (for 3y+) 0.5 ML DOSE IMVAC ONE (11:00)
--- NOTE | 2018-06-09 11:00 | RAD REPORT ---
EXAM DESCRIPTION: RAD - Chest Single View - 06/09/2018 3:20 am CLINICAL HISTORY: CHEST PAIN Chest pain. COMPARISON: Chest Single View dated 01/11/2017; Chest Single View dated 01/09/2017; Chest Single View dated 05/13/2016; Chest Single View dated 05/12/2016 FINDINGS: Portable technique limits examination quality. Rounded left upper lobe pulmonary mass is again noted, unchanged in size and appearing slightly more lucent than on the comparative study. The lungs are otherwise clear. The heart is normal in size. No displaced fractures.Cervical hardware plate is noted. IMPRESSION: No acute intrathoracic process suspected.
[2018-06-09] MEDS: PREGABALIN 150 MG CAP PO SCH ×2 (13:21→20:23)
[2018-06-09] MEDS: PANTOPRAZOLE 40MG TABLET PO SCH (16:12)
[2018-06-09] MEDS ORDERED: OLANZapine 10 MG TABLET PO SCH (21:00)
[2018-06-09] MEDS ORDERED: ATORVASTATIN 20 MG TAB PO SCH (21:00)
[2018-06-09] MEDS ORDERED: DIVALPROEX DR 500MG TAB PO SCH (21:00)
[2018-06-10] MEDS: NA CHLORIDE 0.9% 1,000 ML IV SCH (02:39)
[2018-06-10 06:35] LABS: Absolute Monocytes 0.8 K/uL (0.1-1.3); Absolute Neutrophil 8.5 K/uL (1.8-8.0); Basophils % 0.1 % (0-1.3); Eosinophils % 0.5 % (0-4.4); Hematocrit 33.5 % (36.0-45.0); Lymphocytes % 17.4 % (15.3-44.8); MCH 29.4 pg (27.0-35.0); MCV 87.1 fL (80-100); MPV 9.4 fL (7.6-11.3); Monocytes % 6.8 % (3.3-12.3); RBC Red Blood Cell Count 3.84 M/uL (3.86-4.86)
[2018-06-10 06:44] LABS: Potassium 4.1 mmol/L (3.5-5.1)
[2018-06-10] MEDS: INSULIN -REGULAR HUMAN 50 UNIT/0.5 ML ML SQ SCH ×2 (07:30→11:30)
[2018-06-10 08:07] LABS: Urine Appearance CLEAR; Urine Bilirubin NEGATIVE (NEG); Urine Blood NEGATIVE (NEG); Urine Color YELLOW; Urine Glucose 3+ (NEG); Urine Protein NEGATIVE (NEG); Urine Specific Gravity >=1.030 (1.005-1.030); Urine Urobilinogen 0.2 mg/dL (0.2-1.0); Urine pH 5.5 (5.0-7.0)
[2018-06-10 08:08] LABS: Urine Microscopic Reflex NO UMIC
[2018-06-10] MEDS: PANTOPRAZOLE 40MG TABLET PO SCH (08:51)
[2018-06-10] MEDS: PREGABALIN 150 MG CAP PO SCH (08:51)
[2018-06-10] MEDS: APIXABAN 5 MG TABLET PO SCH (08:58)
[2018-06-10] MEDS ORDERED: OLANZapine 10 MG TABLET PO SCH (09:00)
[2018-06-10] MEDS ORDERED: OLANZAPINE 5 MG PO SCH (09:00)
[2018-06-10] MEDS ORDERED: HOME MED 1 EA UNK (Venlafaxine Hcl [Venlafaxine Hcl Er] 150 MG) PO SCH (09:00)
[2018-06-10] MEDS ORDERED: VENLAFAXINE HCL XR 75 MG CAP PO SCH (09:00)
[2018-06-10] MEDS ORDERED: BUPROPION HCL XL 150 MG TAB PO SCH (09:00)
[2018-06-10 11:22] VITALS: BP 134/67; TEMP 97.5
--- NOTE | 2018-06-10 15:42 | P.DS ---
Admission Date: 06/09/18 Discharge Date: 06/10/18 Disposition: ROUTINE DISCHARGE Discharge Condition: GOOD Reason for Admission: Acute DVT - Problems (1) Acute deep vein thrombosis (DVT) of popliteal vein of right lower extremity Onset Date: 02/14/16 Status: Resolved (2) CKD (chronic kidney disease) stage 3, GFR 30-59 ml/min Onset Date: 06/10/18 Status: Acute (3) Bipolar disorder Onset Date: 02/14/16 Status: Chronic Qualifiers: Active/Remission status: currently active Current bipolar episode type: depressed Current episode severity: moderate Qualified Code(s): F31.32 - Bipolar disorder, current episode depressed, moderate (4) Diabetes mellitus Onset Date: 02/01/15 Status: Chronic Qualifiers: Diabetes mellitus type: type 2 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: with terminal worker use Diabetes mellitus complication status: with skin complications Diabetes mellitus complication detail: with foot ulcer Qualified Code(s): E11.621 - Type 2 diabetes mellitus with foot ulcer (5) GERD (gastroesophageal reflux disease) Onset Date: 01/12/17 Status: Chronic Qualifiers: Esophagitis presence: esophagitis presence not specified Qualified Code(s) : K21.9 - Gastro-esophageal reflux disease without esophagitis (6) History of pulmonary embolus (PE) Status: Chronic (7) Hyperlipidemia Onset Date: 02/14/16 Status: Chronic Qualifiers: (8) Hypertension Onset Date: 01/12/17 Status: Chronic Qualifiers: Hypertension type: essential hypertension (9) Obesity Onset Date: 01/12/17 Status: Chronic Qualifiers: Obesity type: unspecified obesity type Qualified Code(s): E66.9 - Obesity, unspecified (10) Tobacco abuse Onset Date: 01/12/17 Status: Chronic Brief History of Present Illness: Ms Ramsay is a 52-year-old woman with multiple chronic medical problems including tobacco abuse, bipolar disorder, history of DVT who was supposed to be on Xarelto however she has not been taking this medication for the last month. Since 2 days ago, the patient started noticing swelling her right leg associated with pain in her calf. She denied shortness of breath, however she has had some chest pain. She also has chronic cough lately with yellow secretions without any blood on it. Lab work remarkable for abnormal renal function, creatinine 1.6. Lower extremity Doppler ultrasound shows acute DVT of her right leg. Patient has no fever. BP within normal limits, she is somewhat tachycardic 94 bpm O2 sat 94% on room. Hospital Course: Overall during the hospital stay patient remained stable The patient was initially admitted to the hospital for right leg acute DVT most likely secondary to noncompliance with medication. Patient was taking is were also at home however because of recent kidney failure and worsening of chronic kidney disease patient was switched over to oral liquids and was admitted to the hospital for monitoring after initiation of new anti coagulation. Patient did well overall and then was discharged home under stable condition after she had tolerated Eliquis well. No other complications were noted Vital Signs/Physical Exam: Temp Pulse Resp BP Pulse Ox 97.5 F 82 18 134/67 96 06/10/18 08:00 06/10/18 08:00 06/10/18 08:00 06/10/18 08:00 06/10/18 08:00 General: Alert, In no apparent distress HEENT: Atraumatic, PERRLA, EOMI Neck: Supple, JVD not distended Respiratory: Clear to auscultation bilaterally, Normal air movement Cardiovascular: Regular rate/rhythm, Normal S1 S2 Gastrointestinal: Normal bowel sounds, No tenderness Musculoskeletal: No tenderness Integumentary: No rashes Neurological: Normal speech, Normal tone, Normal affect Lymphatics: No axilla or inguinal lymphadenopathy Laboratory Data at Discharge: WBC 11.3 K/uL (4.3-10.9) H D 06/10/18 05:18 Hgb 11.3 g/dL (12.0-15.0) L 06/10/18 05:18 Hct 33.5 % (36.0-45.0) L 06/10/18 05:18 Plt Count 211 K/uL (152-406) 06/10/18 05:18 PT 13.3 SECONDS (9.5-12.5) H 06/09/18 03:10 INR 1.13 06/09/18 03:10 Sodium 143 mmol/L (136-145) 06/10/18 05:18 Potassium 4.1 mmol/L (3.5-5.1) 06/10/18 05:18 BUN 27 mg/dL (7-18) H 06/10/18 05:18 Creatinine 1.00 mg/dL (0.55-1.3) 06/10/18 05:18 Glucose 244 mg/dL (74-106) H 06/10/18 05:18 Magnesium 1.6 mg/dL (1.8-2.4) L 06/09/18 03:10 Total Bilirubin 0.3 mg/dL (0.2-1.0) 06/09/18 03:10 AST 25 U/L (15-37) 06/09/18 03:10 ALT 44 U/L (12-78) 06/09/18 03:10 Alkaline Phosphatase 73 U/L (45-117) 06/09/18 03:10 Home Medications: Acetaminophen with Codeine [Tylenol with Codeine #4 Tablet] 1 each PO Q6HP PRN 06/09/18 Alprazolam [Xanax] 1 mg PO DAILY 06/09/18 Atorvastatin Calcium 20 mg PO BEDTIME 06/09/18 Bupropion *Xl* [Wellbutrin XL*] 150 mg PO DAILY 06/09/18 Divalproex Sodium [Depakote] 1,500 mg PO BEDTIME 06/09/18 Insulin Degludec [Tresiba Flextouch U-100] 100 unit SQ [id number] 06/09/18 Insulin Lispro [Humalog] See Protocol SQ ACHS 06/09/18 Metformin ER [Glucophage ER*] 1,000 mg PO BID 06/09/18 OLANZapine [Zyprexa*] 10 mg PO BEDTIME 06/09/18 Olanzapine [Zyprexa] 5 mg PO DAILY 06/09/18 Pantoprazole [Protonix Tab*] 40 mg PO BID 06/09/18 Pregabalin [Lyrica] 150 mg PO TID 06/09/18 Rivaroxaban [Xarelto] 20 mg PO BEDTIME 06/09/18 Venlafaxine HCl [Venlafaxine HCl ER] 150 mg PO DAILY 06/09/18 Apixaban [Eliquis] 10 mg PO BID #74 tablet 06/10/18 New Medications: Apixaban [Eliquis] 10 mg PO BID #74 tablet Diet: Regular Activity: Ad shikha Followup: Bryant Batista MD [ACTIVE - CAN ADMIT] - 1 Week (Call for appointment.)
[2018-06-10 16:00] VITALS: O2SAT 96
== END 2018-06-10 13:14 | disposition home or self-care (01) ==
LOC: ER 02:28 → INTOOBSV 05:15 → ERHOLD 05:15 → 2ND 07:56
PROVIDERS: ADMIT Internal Medicine; ATTEND Internal Medicine
DX: I82.431 Acute embolism and thrombosis of right popliteal vein (principal); I12.9 Hypertensive chronic kidney disease with stage 1 through stage 4 chronic kidney disease, or unspecified chronic kidney disease; E11.22 Type 2 diabetes mellitus with diabetic chronic kidney disease; N18.3 Chronic kidney disease, stage 3 (moderate); F31.9 Bipolar disorder, unspecified; F17.210 Nicotine dependence, cigarettes, uncomplicated; K21.9 Gastro-esophageal reflux disease without esophagitis; E78.5 Hyperlipidemia, unspecified; E66.9 Obesity, unspecified; Z68.35 Body mass index [BMI] 35.0-35.9, adult; Z86.711 Personal history of pulmonary embolism; Z23 Encounter for immunization; Z88.0 Allergy status to penicillin
CPT/HCPCS: 36415 ×2; 71045; 78582; 80048 ×2; 80076; 81003; 82962 ×6; 83735; 83880; 84484; 85025 ×2; 85610; 93005; 93971; 96365; 96375; 99285; A9540; A9558; G0008; G0378 ×2; J2930; J3475; J7030 ×3; Q2035

== ENCOUNTER 2018-07-26 11:58 | Observation (INO) | payer OTHER ==
--- OUTSIDE RECORDS SUMMARY | 2018-07-26 12:02 | XMS REPORT ---
:1965 [facility] Address [address] [place] [address] Dr. Hinds [address] [place] [id number] Care Team Providers Name Role Phone Unavailable Unavailable Unavailable Problems This patient has no known problems. Allergies, Adverse Reactions, Alerts This patient has no known allergies or adverse reactions. Medications This patient has no known medications.
--- OUTSIDE RECORDS SUMMARY | 2018-07-26 12:02 | XMS REPORT | Continuity of Care Document ---
:1965 Author Organization Interface Problems Problem Status Onset Classification Date Comments Source Date Reported DX: Active 05/29/20 [facility] R13.10=DYSPHAGIA, 18 UNSPECIFIED, R10.1 GERD WO Active 04/17/20 [facility] ESOPHAGITIS 18 UNK Active 04/17/20 [facility] 18 K21.9, R13.10, Active 04/04/20 [facility] K44.9 18 Gout Active 08/23/19 Finding 09/03/[address] [facility] [place] Diabetic foot Active 08/23/19 Finding 09/03/[address] [facility] ulcer 18 [facility] [place] Diabetes mellitus Active 01/13/20 Finding 09/03/[address] [facility] with foot ulcer 17 [facility] [place] Chronic renal Active 01/13/20 Finding 09/03/[address] [facility] disease 17 [facility] [place] Tobacco abuse Active 01/13/20 Finding 09/03/[address] [facility] [facility] [place] GERD Active 01/13/20 Finding 09/03/[address] [facility] [place] Hypertension Active 01/13/20 Finding 09/03/[address] [facility] [place] Obesity Active 01/13/20 Finding 09/03/[address] [facility] [place] Cellulitis of Resolved 01/13/20 Finding 09/03/[address] [facility] [address] foot, left 17 [facility] [place] Hypomagnesemia Resolved 01/13/20 Finding 09/03/[address] [facility] [facility] [place] Fever Resolved 01/11/20 Finding 09/03/[address] 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 to type 2 16 [facility] - diabetes mellitus [place] Left sided Resolved 03/17/20 Finding 09/03/[address] [facility] [address] numbness 16 [facility] [place] Weakness Resolved 03/17/20 Finding 09/03/[address] [facility] [facility] [place] Abnormal renal Active 03/17/20 Finding 09/03/[address] [facility] function 16 [facility] [place] Hypokalemia Resolved 03/17/20 Finding 09/03/[address] [facility] [facility] [place] Diverticulosis Active 02/14/20 Finding 09/03/[address] [facility] [facility] [place] Bipolar disorder Active 02/14/20 Finding 09/03/[address] [facility] [facility] [place] Acute deep vein Resolved 02/14/20 Finding 09/03/[address] [facility] [address] thrombosis of 16 [facility] popliteal vein of [place] right lower extremity Hyperlipidemia Active 02/14/20 Finding 09/03/[address] [facility] [facility] [place] Pancreatitis Resolved 02/14/20 Finding 09/03/[address] [facility] [facility] [place] Pulmonary Resolved 02/14/20 Finding 09/03/[address] [facility] embolism 16 [facility] [place] Diabetes mellitus Active 02/14/20 Finding 09/03/[address] [facility] [address] type II, non 16 [facility] - insulin dependent [place] Diabetes mellitus Active 02/02/20 Finding 09/03/[address] [facility] [facility] [place] Cellulitis Resolved 02/02/20 Finding 09/03/[address] [facility] [facility] [place] Open wound of Resolved 02/02/20 Finding 09/03/[address] [facility] [address] third toe of left 15 [facility] foot [place] Open wound of Resolved 02/02/20 Finding 09/03/[address] [facility] [address] fourth toe of 15 [facility] left foot [place] Diabetes mellitus Active 11/06/19 Finding 09/03/[address] [facility] [address] type 1 13 [facility] [place] Ulcer of toe Resolved 11/06/19 Finding 09/03/[address] [facility] [facility] [place] Chronic Inactive Finding 09/03/[address] [facility] [address] obstructive lung [facility] disease COPD [place] Bipolar disorder Inactive Finding 09/03/[address] [facility] [facility] [place] Hypertensive Inactive Finding 09/03/[address] [facility] disorder, [facility] systemic arterial [place] Hyperlipidemia Inactive Finding 09/03/[address] [facility] [facility] [place] Hypoxia Inactive Finding 09/03/[address] [facility] [facility] [place] Diverticulosis of Inactive Finding 09/03/[address] [facility] [address] colon without [facility] diverticulitis [place] Altered mental Inactive Finding 09/03/[address] [facility] [facility] status AMS [facility] [place] Clostridium Inactive Finding 09/03/[address] [facility] [address] difficile colitis [facility] [place] Avascular Active Finding 09/03/[address] [facility] [address] necrosis of bone [facility] [place] DVT Resolved Finding 09/03/[address] [facility] [facility] [place] Fracture, Active Finding 09/03/[address] [facility] [address] phalanx, foot [facility] [place] Diarrhea Resolved Finding 09/03/[address] [facility] [facility] [place] CKD stage 3, GFR Active Finding 09/03/[address] [facility] [address] 30-59 ml/min [facility] [place] Renal Resolved Finding 09/03/[address] [facility] insufficiency [facility] [place] Acute renal Active Finding 09/03/[address] [facility] failure [facility] - superimposed on [place] stage 3 chronic kidney disease Diabetic ulcer of Resolved Finding 09/03/[address] [facility] right fifth toe [facility] - [place] History of Active Finding 09/03/[address] [facility] St[facility] pulmonary embolus [facility] [place] DYSPHAGIA, Active [facility] UNSPECIFIED GASTRO-ESOPHAGEAL Active [facility] REFLUX DISEASE WITHOUT DIAPHRAGMATIC Active [facility] HERNIA WITHOUT OBSTRUCTION Medications Medication Details Route Status Patient Ordering Order Source Instructions Provider Date Pregabalin TWICE Active [facility] 018 [facility] [place] Doxycycline TWICE Active [facility] Hyclate DAILY 018 [facility] [place] Mupirocin Oint TWICE Active Larsen [facility] DAILY 018 [facility] [place] Colchicine TWICE Active Larsen [facility] DAILY 018 [facility] [place] Insulin Detemir DAILY AT Active [facility] St. SUPPER 017 [facility] [place] Ciprofloxacin TWICE Active [facility] Hcl DAILY 017 [facility] [place] Venlafaxine Hcl AT Active [facility] BEDTIME 017 [facility] [place] Atorvastatin AT Active [facility] Calcium BEDTIME 017 [facility] [place] Insulin Detemir AT Active Prezas [facility] BEDTIME 017 [facility] [place] Insulin Detemir AT Active [facility] BEDTIME 017 [facility] [place] Sulfamethoxazole TWICE Active [facility] /Trimethoprim DAILY 017 [facility] [place] Collagenase DAILY Active [facility]16 [facility] [place] Insulin Detemir DAILY Active [facility]16 [facility] [place] Rivaroxaban AT Active [facility] BEDTIME 016 [facility] [place] Alprazolam TWICE Active [facility] DAILY 016 [facility] [place] Rivaroxaban TWICE Active Torres [facility] DAILY 016 [facility] [place] Apixaban TWICE Active Torres [facility] DAILY 016 [facility] [place] Divalproex AT Active [facility] Sodium BEDTIME 015 [facility] [place] Venlafaxine Hcl DAILY AT Active [facility] *Xr* 0600 015 [facility] [place] Olanzapine AT Active [facility] BEDTIME 015 [facility] [place] Pantoprazole TWICE Active [facility] Sodium DAILY 015 [facility] [place] Gabapentin THREE Active [facility] TIMES A 015 [facility] - DAY [place] Levofloxacin DAILY Active Gallardo [facility] 015 [facility] [place] Metformin Hcl TWICE Active [facility] DAILY 015 [facility] [place] Venlafaxine Hcl DAILY Active [facility] 015 [facility] [place] Divalproex AT Active [facility] Sodium BEDTIME 013 [facility] [place] Hydrocodone FOUR Active [facility] Bit/Acetaminophe TIMES 013 [facility] - n DAILY PRN [place] For Pain Aripiprazole TWICE Inactive [facility] DAILY 013 [facility] [place] Hum Insulin DAILY Active [facility] Nph/Reg Insulin 013 [facility] - Hm [place] Furosemide DAILY Active [facility] 013 [facility] [place] Pantoprazole DAILY [facility] 013 [facility] [place] Special Order Active [facility] 013 [facility] [place] Topiramate TWICE Active [facility] DAILY 013 [facility] [place] Gabapentin THREE [facility] TIMES A 013 [facility] - DAY [place] Hydrocodone/Acet EVERY Active [facility] aminophen TWELVE 012 [facility] HOURS [place] NEEDED PRN For Pain Risperdal Consta SEE Active [facility] COMMENT 012 [facility] [place] Hydroxyzine Hcl THREE Active [facility] TIMES A 012 [facility] - DAY PRN [place] For Anxiety Insuln Asp DAILY AT Active [facility] Prt/Insulin SUPPER 012 [facility] - Aspart [place] Lisinopril DAILY Active [facility] 012 [facility] [place] Tramadol Hcl EVERY [address] [facility] [address] HOURS PRN 012 [facility] - For Pain [place] Allergies, Adverse Reactions, Alerts Substance Category Reaction Severity Reaction Status Date Comments Source type Reported amoxicillin Unknown Allergy to Active [facility] Substance 8 [facility] [place] aripiprazole Unknown Allergy to Active [facility] Substance 8 [facility] [place] meperidine Unknown Allergy to Active [facility] Substance 8 [facility] [place] Penicillins Unknown Allergy to Active [facility] Substance 8 [facility] [place] pentazocine Rash Allergy to Active [facility] lactate Substance 8 [facility] [place] Immunizations Immunization Date Given Site Status Last Comments Source Updated Influenza Adult 05/16/[address] [facility] - [place] Results Order Name Results Value Reference Date Interpretation Comments Source Range Barium Barium Barium Swallow w Esophagus Function DX 05/30 - Swallow w Swallow - [facility] Esophagus Esophagus Function Function DX DX COMPARISON: None Read by: Julio Rosario MD Dictated Date/time: 05/30/18 15:49 Electronically Signed by: Julio Rosario MD 05/30/18 15:53 FINAL REPORT CLINICAL HISTORY: - epigastric pain; generalized abdominal pain, status post Heller myotomy for achalasia. TECHNIQUE: Thin barium was administered with the patient in the upright position. AP and oblique views of the esophagus, GE junction and stomach were subsequently performed. FINDINGS: There is no significant delay in passage of barium from the esophagus to the stomach. No leakage of contrast is visualized. On the overhead images performed immediately after the procedure and 15 minutes later, contrast is noted to extend from the stomach into proximal small bowel. No significant small bowel dilation is noted. Lung bases are clear. IMPRESSION: Negative postoperative study. No fluoroscopic evidence to suggest leak or obstruction. Prompt passage of barium from the stomach into proximal small bowel. [id number] Chest 2 Chest 2 Patient Name: MANJINDER DODSON 04/19 - views DX views DX /2017 - [facility] : 1965; Age: 52 years Female MR: [id number] Read by: Valery Saleh MD Dictated Date/time: 04/19/18 15:34 Study: Chest 2 views DX Order Time: 04/19/2018 3:01 PM CDT Electronically Signed by: Valery Saleh MD 04/19/18 15 :35 FINAL REPORT CLINICAL INDICATION: Coughing - preop COMPARISON: None FINDINGS: Lines: None. Lungs: Round 2.6 cm nodule projects over the left upper lobe. No significant effusion or pneumothorax. Mediastinum: The cardiac silhouette is within normal limits of size. Midline trachea. Bones and soft tissues: No acute abnormalities. Cervical spine fusion hardware. IMPRESSION: Round nodule (2.6 cm) projects over the left upper lobe. No comparison imaging available. Recommend CT chest for further characterization. SL: [id number] Barium Barium Fluoro Time and Dose: 6.1min/369.66mGy air kerma 04/17 - Swallow w Swallow w Esophagus Esophagus Barium Swallow w Esophagus Function DX Function Function DX DX Read by: Julio Rosario MD Dictated Date/time: 06/24/18 17:37 COMPARISON: None Electronically Signed by: Julio Rosario MD 06/24/18 17:38 FINAL REPORT - - CLINICAL HISTORY: - R13.10 Dysphagia, unspecified,K44.9 Diaphragmatic hernia without obstruction or gangrene. Read by: Julio Rosario MD Dictated Date/time: 04/17/18 11:07 TECHNIQUE: Thin barium was utilized for recumbent prone oblique and LPO images. Thick barium was utilized for upright imaging of the esophagus and pharynx. Granola bar mixed with barium was given to evaluate motility with solids. Electronically Signed by: Julio Rosario MD 04/17/18 11:35 FINAL REPORT FINDINGS: There is no delay in passage of the barium bolus from the pharynx into the esophagus. The cricopharyngeus relaxes normally. There is no evidence for cricopharyngeal bar or Zenker's diverticulum. Prone and LPO images of the esophagus reveal moderate to fairly extensive delay in passage of barium from the esophagus to the stomach. There is intermittent relaxation of the LES. Numerous tertiary con tractions are visualized. No significant dilation of the esophagus is noted. Small hiatal hernia is visualized, approximately 2 cm in size. Upright images with thick barium reveal moderate delay in passage of barium from the esophagus to the stomach. Tertiary contractions and an air- fluid level is noted in the esophagus. There is intermittent relaxation of the LES. Subsequently single swallow of granola thin barium was administered orally. There is marked delay. The patient is able to partially clear the solid bolus after administration of additional thin barium. Overhead image performed at the conclusion of the procedure reveals prompt passage of the barium from the stomach into the small bowel. IMPRESSION: Findings suggestive of achalasia. Correlation with other clinical data and manometry study is recommended. The esophagus is not dilated Small hiatal hernia is visualized at the GE junction. SL: [id number] Laboratory Bedside 222 mg/dl 65 - 120 09/[address] [facility] St. Studies Glucose /2017 [facility] [place] Laboratory Prothrombin 12.3 9.5 - 12.5 08/[address] [facility] St. Studies Time SECONDS /2017 [facility] [place] Laboratory INR 1.04 08/[address] [facility] St. Studies Internationa /2017 [facility] - l Normalized [place] Ratio Laboratory Activated 29.2 24.3 - 08/[address] [facility] St. Studies Partial SECONDS 36.9 [facility] - Thromboplast [place] Time Laboratory White Blood 8.1 K/uL 4.3 - 10.9 08/[address] [facility] St. Studies Count /2017 [facility] [place] Laboratory Red Cell 14.1 % 12.1 - 08/[address] [facility] St. Studies Distribution 15.2 [facility] - Width [place] Laboratory Red Blood 3.88 M/uL 3.86 - 08/[address] [facility] St. Studies Count 4.86 /2017 [facility] [place] Laboratory Platelet 243 K/uL 152 - 406 08/[address] [facility] St. Studies Count /2017 [facility] [place] Laboratory Neutrophils 58.7 % 41.7 - [address] [facility] St. Studies % 73.7 /2017 [facility] [place] Laboratory Monocytes % 4.7 % 3.3 - 12.3 08/[address] [facility] St. Studies /2017 [facility] [place] Laboratory Mean 9.0 fL 7.6 - 11.3 08/[address] [facility] St. Studies Platelet /2017 [facility] - Volume [place] Laboratory Mean 84.9 fL 80 - 100 08/30 [facility] Studies Corpuscular /2017 [facility] Volume [place] Laboratory Mean 32.8 g/dL 32.0 - 08/30 [facility] Studies Corpuscular 36.0 /2017 [facility] - Hemoglobin [place] Con[facility] Laboratory Mean 27.9 pg 27.0 - 08/30 [facility] Studies Corpuscular 35.0 [facility] - Hemoglobin [place] Laboratory Lymphocytes 34.2 % 15.3 - [address] [facility] St. Studies % 44.8 /2017 [facility] [place] Laboratory Hemoglobin 10.8 g/dL 12.0 - 08/[address] [facility] St. Studies 15.0 /2017 [facility] [place] Laboratory Hematocrit 32.9 % 36.0 - 08/[address] [facility] St. Studies 45.0 /2017 [facility] [place] Laboratory Eosinophils 1.9 % 0 - 4.4 08/[address] [facility] St. Studies % /2017 [facility] [place] Laboratory Basophils % 0.5 % 0 - 1.3 08/[address] [facility] St. Studies /2017 [facility] [place] Laboratory Absolute 4.8 K/uL 1.8 - 8.0 08/[address] [facility] St. Studies Neutrophil /2017 [facility] [place] Laboratory Absolute 0.4 K/uL 0.1 - 1.3 08/30 [facility] Studies Monocytes /2017 [facility] - (CBC) [place] Laboratory Absolute 2.8 K/uL 0.7 - 4.9 08/30 [facility] Studies Lymphocytes /2017 [facility] - (CBC) [place] Laboratory Absolute 0.2 K/uL 0 - 0.5 08/30 [facility] Studies Eosinophils /2017 [facility] - (CBC) [place] Laboratory Absolute 0.0 K/uL 0 - 0.5 08/30 [facility] Studies Basophils /2017 [facility] (CBC) [place] Laboratory Urine pH 6.0 08/30 St. Studies /2018 [facility] [place] Laboratory Urine 1.0 mg/dL 08/[address] [facility] St. Studies Urobilinogen /2017 [facility] [place] Laboratory Urine Total Urine 08/30 St. Studies Protein Total /2017 [facility] - Protein [place] Laboratory Urine 1.025 08/[address] [facility] St. Studies Specific /2017 [facility] - [place] Laboratory Urine Urine 08/30 St. Studies Nitrite Nitrite /2017 [facility] [place] Laboratory Urine Urine 08/30 St. Studies Leukocyte Leukocyte /2017 [facility] - Esterase Esterase [place] Laboratory Urine Urine 08/30 . Studies Ketones Ketones /2017 [facility] [place] Laboratory Urine Urine 08/30 . Studies Glucose Glucose [facility] [place] Laboratory Urine Color Urine 08/30 . Studies Color /2017 [facility] [place] Laboratory Urine Blood Urine 08/30 [facility] Studies Blood /2017 [facility] [place] Laboratory Urine Urine 08/30 [facility] Studies Bilirubin Bilirubin /2017 [facility] [place] Laboratory Urine Urine 08/30 [facility] Studies Appearance Appearance /2017 [facility] [place] Laboratory Uric Acid 7.1 mg/dL 2.6 - 8.0 08/[address] [facility] St. Studies /2017 [facility] [place] Laboratory Estimat 61 mL/min [address] [facility] St. Studies Glomerular /2017 [facility] - Filtration [place] Rate Laboratory Creatinine 0.97 mg/dL 0.44 - [address] [facility] St. Studies 1.00 [facility] [place] Laboratory Blood Urea 23 mg/dL 6 - 20 08/[address] [facility] St. Studies Nitrogen /2017 [facility] [place] Laboratory Sodium Level 133 mEq/L 135 - 145 08/[address] [facility] St. Studies /2018 [facility] [place] Laboratory Potassium 3.6 mEq/L 3.6 - 5.0 08/[address] [facility] St. Studies Level /2017 [facility] [place] Laboratory Glucose 288 mg/dL 65 - 120 08/[address] [facility] St. Studies Level /2018 [facility] [place] Laboratory Chloride 99 mEq/L 101 - 111 08/[address] [facility] St. Studies Level /2018 [facility] [place] Laboratory Carbon 25 mEq/L 21 - 31 08/[address] [facility] St. Studies Dioxide /2017 [facility] - Level [place] Laboratory Calcium 9.0 mg/dL 8.5 - 10.5 08/[address] [facility] St. Studies Level /2017 [facility] [place] Microbiolo Staph Aureus Staph 07/[address] [facility] St. gy Studies Aureus [facility] [place] Laboratory Sedimentatio 32 mm/HR 0 - 30 07/[address] [facility] St. Studies n Rate [facility] [place] Laboratory C-Reactive 36.4 mg/L 07/[address] [facility] St. Studies Protein [facility] [place] Laboratory Hemoglobin 11.1 % 4 - 6.0 07/[address] [facility] St. Studies A1c [facility] [place] Vital Signs Vital Sign Value Date Comments Source Temperature Oral (F) 98.6 F 09/03/[address] [facility] [place] Heart Rate 62 09/03/[address] [facility] [place] Respitory Rate 16 09/03/[address] [facility] [place] Systolic (mm Hg) 128 09/03/[address] [facility] [place] Diastolic (mm Hg) 69 09/03/[address] [facility] [place] Height 71 08/30/[address] [facility] St. [place] - [place] Weight 218 08/30/[address] [facility] [place] Encounters Location Location Encounter Encounter Reason Attending ADM DC Status Source Details Type Number For Provider Date Date Visit [facility] [id number] 06/18 06/[address] [facility] Recurring 70 [facility] [place] [facility] St. Departed [id number] 06/19 06/[address] [facility] StMyesha Seaman's Surgical 79 [facility] [place] [facility] St. Discharged [id number] 07/09 07/[address] [facility] St[facility]'s Recurring [facility] [place] [facility] St. Departed [id number] 07/18 07/[address] [facility] StMyes[facility] Seaman[facility] Emergency 97 [facility] [place] [facility] St. Registered [id number] 07/[address] [facility] StMyesha Seaman's Referred [facility] [place] [facility] St. Discharged [id number] 08/20 08/[address] [facility] St[facility]'s Recurring [facility] [place] [facility] St. Discharged [id number] 08/23 08/[address] [facility] Inpatient [facility] [place] [facility] St. Registered [id number] 08/[address] [facility] St[facility]annette's Recurring [facility] [place] [facility] St. Departed [id number] 08/27 08/[address] [facility] St. [place] Emergency 38 [facility] [place] [facility] St. Departed [id number] 09/03 09/[address] [facility] St. [place] Surgical 97 [place] - Rom[facility] Day Care [place] Procedures Procedure Code Date Perfomer Comments Source Foot Left 3 View [id number] 08/27/[address] [facility] St. [place] - Román Anaerobic Blood [id number] 08/23/[address] [facility] St. [place] - Culture [place] Aerobic Blood [id number] 08/23/2017 [facility] Culture [place] Anaerobic Blood [id number] 07/18/[address] [facility] StMyesha Mach[place]oshilpa - Culture [place] Aerobic Blood [id number] 07/18/[address] [facility] St. [place] - Culture [place] Gram Stain [id number] 07/18/[address] [facility] St. [place] - [place] Culture & [id number] 07/18/[address] [facility] St. [place] - Sensitivity [place] Foot Left 3 View [id number] 07/18/[address] [facility] St. [place] - [place] DETACHMENT AT [id number] 06/19/[address] [facility] St. [place] - LEFT 2ND TOE, [place] COMPLETE, OPEN APPROACH AMPUTATION OF TOE [id number] 06/19/[address] [facility] St. [place] - [place] Gram Stain [id number] 06/18/[address] [facility] St. [place] - [place] Anaerobic Culture [id number] 06/18/[address] [facility] St. Huffman - Román
[2018-07-26] MEDS ORDERED: ADENOSINE 6 MG/ 2ML VIAL IV ONE (12:32)
[2018-07-26] MEDS ORDERED: NA CHLORIDE 0.9% 1,000 ML ONE (12:33)
--- NOTE | 2018-07-26 13:01 | RAD REPORT ---
EXAM DESCRIPTION: RAD - Chest Single View - 07/26/2018 12:54 pm CLINICAL HISTORY: svt Chest pain. COMPARISON: Chest Single View dated 06/09/2018; Chest Single View dated 01/11/2017; Chest Single View dated 01/09/2017; Chest Single View dated 05/13/2016 FINDINGS: Portable technique limits examination quality. The lungs are grossly clear. The heart is normal in size. No displaced fractures.Cervical hardware pl ate is noted. IMPRESSION: No acute intrathoracic process suspected.
[2018-07-26] MEDS ORDERED: FENTANYL CITR 100 MCG/2 ML ONE (13:42)
[2018-07-26] MEDS ORDERED: ASPIRIN 81 MG CHEWABLE TABLET ONE (13:42)
[2018-07-26 13:50] LABS: Absolute Lymphocytes (CBC) 2.2 K/uL (0.7-4.9); Absolute Monocytes 0.7 K/uL (0.1-1.3); Absolute Neutrophil 6.6 K/uL (1.8-8.0); Basophils % 0.2 % (0-1.3); Eosinophils % 1.1 % (0-4.4); Hematocrit 36.2 % (36.0-45.0); Lymphocytes % 22.7 % (15.3-44.8); MPV 9.3 fL (7.6-11.3); Monocytes % 7.2 % (3.3-12.3)
[2018-07-26 13:59] LABS: Protime INR 1.18
[2018-07-26 14:16] LABS: ALT/SGPT 100 U/L (12-78); AST/SGOT 104 U/L (15-37); Albumin 3.5 g/dL (3.4-5.0); Alkaline Phosphatase 79 U/L (45-117); BUN Blood Urea Nitrogen 28 mg/dL (7-18); Bicarbonate 28 mmol/L (21-32); Bilirubin Direct < 0.1 mg/dL (0-0.2); Bilirubin Total 0.2 mg/dL (0.2-1.0); Glucose Level 146 mg/dL (74-106); Magnesium 2.1 mg/dL (1.8-2.4); NT PRO-BNP 1408 pg/mL (<125); Potassium 4.2 mmol/L (3.5-5.1); Protein, Total 7.3 g/dL (6.4-8.2); Sodium Level 142 mmol/L (136-145); Troponin (Emerg Dept Use Only) 0.04 ng/mL (0.0-0.045)
--- NOTE | 2018-07-26 14:48 | ER ---
Nurse's Notes [facility] Name: Renetta Ramsay Age: 52 yrs Sex: Female : 1965 Arrival Date: 07/26/2018 Time: 12:03 Bed 2 Private MD: Diagnosis: Chest pain, unspecified;Supraventricular tachycardia Presentation: 07/26 12:20 Presenting complaint: Patient states: chest pain for a couple days, SOB, palpitations iw this morning, JW=524 in triage. Transition of care: patient was not received from another setting of care. Onset of symptoms was July 25, 2017. Risk Assessment: Do you want to hurt yourself or someone else? Patient reports no desire to harm self or others. Initial Sepsis Screen: Does the patient meet any 2 criteria? No. Patient's initial sepsis screen is negative. Does the patient have a suspected source of infection? No. Patient's initial sepsis screen is negative. Care prior to arrival: None. 12:20 Method Of Arrival: Ambulatory iw 12:20 Acuity: OLY 2 iw Triage Assessment: 13:00 General: Appears distressed, Behavior is cooperative. Pain: Complains of pain in chest ch Pain currently is 10 out of 10 on a pain scale. Historical: - Allergies: 12:39 Amoxicillin; iw 12:39 ARIPIPRAZOLE; iw 12:39 Demerol; iw 12:39 PENICILLINS; iw 12:39 pentazocine lactate; iw 12:39 Talwin; iw - Home Meds: 15:33 atorvastatin 20 mg Oral tab 1 tab once daily [Active]; Depakote 500 mg Oral TbEC 3 tabs iw 3 times per day [Active]; Lyrica 150 mg Oral 3 times per day [Active]; olanzapine 5 mg Oral TbDL 1 tab once daily [Active]; pantoprazole 40 mg Oral TbEC 1 tab once daily [Active]; Topamax Oral [Active]; venlafaxine 150 mg Oral cp24 1 cap once daily [Active]; Wellbutrin XL 150 mg Oral Tb24 1 tab once daily [Active]; Xanax 2 mg Oral tab twice a day [Active]; Xarelto 20 mg Oral tab 1 tab once daily [Active]; - PMHx: 12:39 ADD/ADHD; Bipolar disorder; Chronic pain; Depression; Diabetes - NIDDM; High iw Cholesterol; osteomyelitis; Pancreatitis; - Immunization history:: Adult Immunizations unknown. - Ebola Screening: : Patient negative for fever greater than or equal to 101.5 degrees Fahrenheit, and additional compatible Ebola Virus Disease symptoms Patient denies exposure to infectious person Patient denies travel to an Ebola-affected area in the 21 days before illness onset No symptoms or risks identified at this time. - Social history:: Smoking status: Patient uses tobacco products, smokes one pack cigarettes per day. Patient uses alcohol. Screenin:10 Abuse screen: Denies threats or abuse. Denies injuries from another. Nutritional ch screening: No deficits noted. Tuberculosis screening: No symptoms or risk factors identified. Fall Risk None identified. Assessment: 13:07 Reassessment: Patient appears in no apparent distress at this time. Patient and/or ch family updated on plan of care and expected duration. Pain level reassessed. Patient is alert, oriented x 3, equal unlabored respirations, skin warm/dry/pink. Patient states feeling better. Patient states symptoms have improved. Pain: Complains of pain in chest, right leg and left leg Pain does not radiate. Pain currently is 4 out of 10 on a pain scale. Pain began gradually. Cardiovascular: Heart tones S1 S2 present. Respiratory: No deficits noted. 13:40 Reassessment: pt states her pain is a 10 in her chest, and it has been a 10. states her ch legs hurt a little but not much . 15:43 Reassessment: Patient appears in no apparent distress at this time. No changes from previously documented assessment. Patient and/or family updated on plan of care and expected duration. Pain level reassessed. Patient is alert, oriented x 3, equal unlabored respirations, skin warm/dry/pink. pt states she is uncomfortable. 16:05 Reassessment: Patient appears in no apparent distress at this time. Patient and/or ch family updated on plan of care and expected duration. Pain level reassessed. Patient is alert, oriented x 3, equal unlabored respirations, skin warm/dry/pink. Patient states feeling better. Patient states symptoms have improved. 16:14 Reassessment: Patient appears in no apparent distress at this time. Patient and/or ch family updated on plan of care and expected duration. Pain level reassessed. Patient is alert, oriented x 3, equal unlabored respirations, skin warm/dry/pink. report called to 4th floor. Vital Signs: 12:20 BP 114 / 74; Pulse 72; Resp 20 S; Temp 98.2; Pulse Ox 97% on 2 lpm NC; iw 13:10 BP 122 / 53; Pulse 80; Resp 16; Temp 98.6; Pulse Ox 99% on R/A; Pain 10/10; ch 13:54 BP 118 / 62; Pulse 76; Resp 15; Pulse Ox 96% on R/A; Pain 5/10; ch 14:59 BP 118 / 88; Pulse 74; Resp 16; Pulse Ox 99% on 2 lpm NC; jb1 16:05 BP 124 / 83; Pulse 70; Resp 16; Temp 98.2; Pulse Ox 99% on R/A; Pain 5/10; ch ED Course: 12:03 Patient arrived in ED. mr 12:11 EKG done, by electrical maintenance technician. reviewed by Lenny Lopez MD. at1 12:16 Guillaume Espinoza PA is PHCP. jr8 12:16 Lenny Lopez MD is Attending Physician. jr8 12:20 No provider procedures requiring assistance completed. Inserted saline lock: 20 gauge ch in left antecubital area, using aseptic technique. Blood collected. Patient maintains SpO2 saturation greater than 95% on room air. 12:20 Patient has correct armband on for positive identification. Placed in gown. Bed in low ch position. Call light in reach. Side rails up X2. physician office specialist on. Pulse ox on. NIBP on. 12:20 Arm band placed on right wrist. Patient placed in an exam room, on a stretcher, on cardiac cath lab manager, on pulse oximetry. 12:32 Bernarda Caro, MARK is Primary Nurse. ch 12:35 Triage completed. iw 12:49 X-ray completed. Portable x-ray completed in exam room. Patient tolerated procedure ka well. 12:54 XRAY Chest (1 view) In Process Unspecified. EDMS 14:48 Vlad Wharton MD is Hospitalizing Provider. jr8 16:00 No apparent distress. Resting quietly. ch 16:00 Patient admitted, IV remains in place. ch Administered Medications: 12:24 Drug: NS 0.9% 1000 ml Route: IV; Rate: 1000 ml; Site: left antecubital; iw 13:53 Follow up: IV Status: Completed infusion ch 16:11 Follow up: IV Status: Completed infusion; IV Intake: 1000ml ch 12:26 Drug: Adenocard 12 mg Route: IVP; Site: left antecubital; iw 13:51 Follow up: Response: No adverse reaction; Marked relief of symptoms ch 13:40 Drug: fentaNYL (PF) 25 mcg Route: IVP; Site: left antecubital; ch 13:52 Follow up: Response: No adverse reaction; Marked relief of symptoms ch 13:40 Drug: Aspirin Chewable Tablet 324 mg Route: PO; ch 13:53 Follow up: Response: No adverse reaction; Marked relief of symptoms ch 15:30 Drug: [place] (7.5 mg-325 mg) 1 tabs Route: PO; ch 16:10 Follow up: Response: No adverse reaction; Marked relief of symptoms ch Intake: 16:11 IV: 1000ml; Total: 1000ml. Outcome: 14:48 Decision to Hospitalize by Provider. jr8 16:14 Admitted to Tele accompanied by tech, via wheelchair, with chart, Report called to Pete 16:14 Condition: stable 16:14 Instructed on the need for admit. 16:21 Patient left the ED. Signatures: Dispatcher [employer] EDJustice David jb1 Bernarda Caro, RN Syl Avina ch, Irene, MARK RN Guillaume Joseph PA PA jr8 Annita Maurice, director adult EKG Tat1 Radha Ray Corrections: (The following items were deleted from the chart) 16:06 13:10 BP 122 / 53; Pulse 80bpm; Resp 16bpm; Pulse Ox 99% RA; Temp 98.6F; Pain 0/10; ch
--- NOTE | 2018-07-26 14:49 | EDPHYS ---
Physician Documentation [facility] Name: Renetta Ramsay Age: 52 yrs Sex: Female : 1965 Arrival Date: 07/26/2018 Time: 12:03 Bed 2 Private MD: ED Physician Lenny Lopez HPI: 07/26 12:39 This 52 yrs old Female presents to ER via Ambulatory with complaints of Chest jr8 Pain/palpitations. 12:39 The patient presents with a history of irregular heart beat, heart racing. Context: The jr8 symptoms occur at rest. Onset: The symptoms/episode began/occurred gradually, 1 week(s) ago, and became worse and became persistent. Duration: The patient or guardian reports multiple episodes. Modifying factors: The symptoms are aggravated by nothing. The symptoms are alleviated by nothing. Associated signs and symptoms: Pertinent positives: chest pain, SOB. Severity of symptoms: At their worst the symptoms were moderate in the emergency department the symptoms are unchanged. The patient has not experienced similar symptoms in the past. The patient has not recently seen a physician. Historical: - Allergies: 12:39 Amoxicillin; iw 12:39 ARIPIPRAZOLE; iw 12:39 Demerol; iw 12:39 PENICILLINS; iw 12:39 pentazocine lactate; iw 12:39 Talwin; iw - Home Meds: 15:33 atorvastatin 20 mg Oral tab 1 tab once daily [Active]; Depakote 500 mg Oral TbEC 3 tabs iw 3 times per day [Active]; Lyrica 150 mg Oral 3 times per day [Active]; olanzapine 5 mg Oral TbDL 1 tab once daily [Active]; pantoprazole 40 mg Oral TbEC 1 tab once daily [Active]; Topamax Oral [Active]; venlafaxine 150 mg Oral cp24 1 cap once daily [Active]; Wellbutrin XL 150 mg Oral Tb24 1 tab once daily [Active]; Xanax 2 mg Oral tab twice a day [Active]; Xarelto 20 mg Oral tab 1 tab once daily [Active]; - PMHx: 12:39 ADD/ADHD; Bipolar disorder; Chronic pain; Depression; Diabetes - NIDDM; High iw Cholesterol; osteomyelitis; Pancreatitis; - Immunization history:: Adult Immunizations unknown. - Ebola Screening: : Patient negative for fever greater than or equal to 101.5 degrees Fahrenheit, and additional compatible Ebola Virus Disease symptoms Patient denies exposure to infectious person Patient denies travel to an Ebola-affected area in the 21 days before illness onset No symptoms or risks identified at this time. - Social history:: Smoking status: Patient uses tobacco products, smokes one pack cigarettes per day. Patient uses alcohol. ROS: 12:39 Eyes: Negative for injury, pain, redness, and discharge, ENT: Negative for injury, jr8 pain, and discharge, Neck: Negative for injury, pain, and swelling, Abdomen/GI: Negative for abdominal pain, nausea, vomiting, diarrhea, and constipation, Back: Negative for injury and pain, MS/Extremity: Negative for injury and deformity, Skin: Negative for injury, rash, and discoloration, Neuro: Negative for headache, weakness, numbness, tingling, and seizure. 12:39 Cardiovascular: Positive for chest pain, palpitations. 12:39 Respiratory: Positive for shortness of breath. Exam: 12:39 Eyes: Pupils equal round and reactive to light, extra-ocular motions intact. Lids and jr8 lashes normal. Conjunctiva and sclera are non-icteric and not injected. Cornea within normal limits. Periorbital areas with no swelling, redness, or edema. ENT: Nares patent. No nasal discharge, no septal abnormalities noted. Tympanic membranes are normal and external auditory canals are clear. Oropharynx with no redness, swelling, or masses, exudates, or evidence of obstruction, uvula midline. Mucous membranes moist. Neck: Trachea midline, no thyromegaly or masses palpated, and no cervical lymphadenopathy. Supple, full range of motion without nuchal rigidity, or vertebral point tenderness. No Meningismus. Respiratory: Lungs have equal breath sounds bilaterally, clear to auscultation and percussion. No rales, rhonchi or wheezes noted. No increased work of breathing, no retractions or nasal flaring. Abdomen/GI: Soft, non-tender, with normal bowel sounds. No distension or tympany. No guarding or rebound. No evidence of tenderness throughout. Back: No spinal tenderness. No costovertebral tenderness. Full range of motion. Skin: Warm, dry with normal turgor. Normal color with no rashes, no lesions, and no evidence of cellulitis. MS/ Extremity: Pulses equal, no cyanosis. Neurovascular intact. Full, normal range of motion. Neuro: Awake and alert, GCS 15, oriented to person, place, time, and situation. Cranial nerves II-XII grossly intact. Motor strength 5/5 in all extremities. Sensory grossly intact. Cerebellar exam normal. Normal gait. 12:39 Cardiovascular: Rate: tachycardic, Rhythm: irregular, Pulses: Pulses are 1+ in right radial artery and left radial artery. Heart sounds: normal, normal S1and S2, Edema: is not appreciated. Vital Signs: 12:20 BP 114 / 74; Pulse 72; Resp 20 S; Temp 98.2; Pulse Ox 97% on 2 lpm NC; iw 13:10 BP 122 / 53; Pulse 80; Resp 16; Temp 98.6; Pulse Ox 99% on R/A; Pain 10/10; ch 13:54 BP 118 / 62; Pulse 76; Resp 15; Pulse Ox 96% on R/A; Pain 5/10; ch 14:59 BP 118 / 88; Pulse 74; Resp 16; Pulse Ox 99% on 2 lpm NC; jb1 16:05 BP 124 / 83; Pulse 70; Resp 16; Temp 98.2; Pulse Ox 99% on R/A; Pain 5/10; ch MDM: 12:16 Patient medically screened. jr8 14:45 Data reviewed: vital signs, nurses notes, lab test result(s), EKG, radiologic studies, jr8 plain films. Data interpreted: Pulse oximetry: on room air is 96 %. Interpretation: normal. Counseling: I had a detailed discussion with the patient and/or guardian regarding: the historical points, exam findings, and any diagnostic results supporting the discharge/admit diagnosis, lab results, radiology results, the need for further work-up and treatment in the hospital. Physician consultation: Vlad Wharton MD was called at 14:46, was contacted at 14:46, regarding admission, to the telemetry unit. and will see patient. 07/26 12:29 Order name: Basic Metabolic Panel; Complete Time: 14:42 jr8 07/26 12:29 Order name: CBC with Diff; Complete Time: 14:03 jr8 07/26 12:29 Order name: LFT's; Complete Time: 14:42 jr8 07/26 12:29 Order name: Magnesium; Complete Time: 14:42 jr8 07/26 12:29 Order name: NT PRO-BNP; Complete Time: 14:42 07/26 12:29 Order name: PT-INR; Complete Time: 14:42 07/26 12:29 Order name: Troponin (emerg Dept Use Only); Complete Time: 14:42 07/26 12:29 Order name: XRAY Chest (1 view); Complete Time: 13:27 07/26 12:29 Order name: TSH; Complete Time: 14:42 07/26 12:29 Order name: T4 Free; Complete Time: 14:42 07/26 12:29 Order name: Depakote; Complete Time: 14:42 07/26 12:29 Order name: EKG; Complete Time: 12:30 07/26 12:29 Order name: Cardiac monitoring; Complete Time: 12:43 07/26 12:29 Order name: EKG - Nurse/Tech; Complete Time: 12:43 07/26 12:29 Order name: IV Saline Lock; Complete Time: 12:44 07/26 12:29 Order name: Labs collected and sent; Complete Time: 12:44 07/26 12:29 Order name: O2 Per Protocol; Complete Time: 12:44 07/26 12:29 Order name: O2 Sat Monitoring; Complete Time: 12:44 07/26 13:01 Order name: EKG Electrocardiogram EDMS Administered Medications: 12:24 Drug: NS 0.9% 1000 ml Route: IV; Rate: 1000 ml; Site: left antecubital; iw 13:53 Follow up: IV Status: Completed infusion ch 16:11 Follow up: IV Status: Completed infusion; IV Intake: 1000ml ch 12:26 Drug: Adenocard 12 mg Route: IVP; Site: left antecubital; iw 13:51 Follow up: Response: No adverse reaction; Marked relief of symptoms ch 13:40 Drug: fentaNYL (PF) 25 mcg Route: IVP; Site: left antecubital; ch 13:52 Follow up: Response: No adverse reaction; Marked relief of symptoms ch 13:40 Drug: Aspirin Chewable Tablet 324 mg Route: PO; ch 13:53 Follow up: Response: No adverse reaction; Marked relief of symptoms ch 15:30 Drug: [place] (7.5 mg-325 mg) 1 tabs Route: PO; 16:10 Follow up: Response: No adverse reaction; Marked relief of symptoms ch Disposition: 07/26/18 14:48 Hospitalization ordered by Vlad Wharton for Observation. Preliminary diagnosis are Chest pain, unspecified, Supraventricular tachycardia. - Bed requested for Telemetry/MedSurg (observation). - Status is Observation. ch - Condition is Stable. - Problem is new. - Symptoms have improved. UTI on Admission? No Signatures: Dispatcher [employer] EDMS Bernarda Caro RN RN Jasmine Moses RN RN Guillaume Espinoza PA PA jr8 Jannie Springer Corrections: (The following items were deleted from the chart) 15:53 14:48 Hospitalization Ordered by Vlad Wharton MD for Observation. Preliminary diagnosis ag is Chest pain, unspecified; Supraventricular tachycardia. Bed requested for Telemetry/MedSurg (observation). Status is Observation. Condition is Stable. Problem is new. Symptoms have improved. UTI on Admission? No. jr8 16:21 15:53 07/26/2018 14:48 Hospitalization Ordered by Vlad Wharton MD for Observation. Preliminary diagnosis is Chest pain, unspecified; Supraventricular tachycardia. Bed requested for Telemetry/MedSurg (observation). Status is Observation. Condition is Stable. Problem is new. Symptoms have improved. UTI on Admission? No. ag
[2018-07-26] MEDS ORDERED: HYDROCODONE/APAP 7.5/325 MG TAB ONE (15:57)
[2018-07-26 17:00] VITALS: BMI 37.2
[2018-07-26] MEDS ORDERED: D50W 25 GM/50 ML SYRINGE IV PRN (17:56)
[2018-07-26] MEDS ORDERED: GLUCAGON 1 MG/VIAL IM PRN (17:56)
--- NOTE | 2018-07-26 18:07 | P.HP ---
Certification for Inpatient Patient admitted to: Observation With expected LOS: <2 Midnights Practitioner: I am a practitioner with admitting privileges, knowledge of patient current condition, hospital course, and medical plan of care. Services: Services provided to patient in accordance with Admission requirements found in Title 42 Section 412.3 of the Code of Federal Regulations Patient History Date of Service: 07/26/18 Reason for admission: Palpitation History of Present Illness: This is a 52-year-old female with history of diabetes, bipolar disorder, major depressive disorder, anxiety and history of DVT recently admitted for palpitations. Per patient she has not been feeling well for the past couple of days. Starting yesterday, she was sweating a lot, stated that her BP was really high NG not believe. This morning this worsened and she could not wal. She went to the pharmacy to check her blood pressure and heart rate and it was 171, heart rate. She came to the ER. In the ED, she was diagnosed with SVT and given a dose of 12 mg of adenosine which turned her heart rate to normal sinus rhythm. Otherwise, she was hemodynamically stable, troponins negative x1. She was admitted for observation overnight. At the time of my exam, patient was alert oriented x3, in no acute distress, breathing normally and no longer feeling palpitations. Allergies amoxicillin Allergy (Verified 09/03/17 11:26) Unknown aripiprazole [From Abilify] Allergy (Verified 09/03/17 11:26) Unknown meperidine [From Demerol] Allergy (Verified 09/03/17 11:26) Unknown Penicillins Allergy (Verified 09/03/17 11:26) Unknown pentazocine lactate [From Talwin] Allergy (Verified 09/03/17 11:26) Rash Home Medications: Acetaminophen with Codeine [Tylenol with Codeine #4 Tablet] 1 each PO Q6HP PRN 06/09/18 Alprazolam [Xanax] 1 mg PO DAILY 06/09/18 Atorvastatin Calcium 20 mg PO BEDTIME 06/09/18 Bupropion *Xl* [Wellbutrin XL*] 150 mg PO DAILY 06/09/18 Divalproex Sodium [Depakote] 1,500 mg PO BEDTIME 06/09/18 Insulin Degludec [Tresiba Flextouch U-100] 100 unit SQ [id number] 06/09/18 Insulin Lispro [Humalog] See Protocol SQ ACHS 06/09/18 Metformin ER [Glucophage ER*] 1,000 mg PO BID 06/09/18 OLANZapine [Zyprexa*] 10 mg PO BEDTIME 06/09/18 Olanzapine [Zyprexa] 5 mg PO DAILY 06/09/18 Pantoprazole [Protonix Tab*] 40 mg PO BID 06/09/18 Pregabalin [Lyrica] 150 mg PO TID 06/09/18 Rivaroxaban [Xarelto] 20 mg PO BEDTIME 06/09/18 Venlafaxine HCl [Venlafaxine HCl ER] 150 mg PO DAILY 06/09/18 Apixaban [Eliquis] 10 mg PO BID #74 tablet 06/10/18 - Past Medical/Surgical History Diabetic: Yes -: Diabetes mellitus type 2 -: Hyperlipidemia -: Bipolar disorder, [facility] -: Diverticulosis -: Right DVT with bilateral PE -: Carpal tunnel syndrome -: History of suicidal ideation -: Asthma -: Obstructive sleep apnea -: Tobacco abuse -: Mild sleep apnea -: dvt- right leg -: Appendectomy -: Hysterectomy -: Left knee surgery -: Carpal tunnel repair of the left wrist -: Colon resection due to diverticulitis -: cervical laminectomy infusion, lumbar herniated disc repair -: I/D of the left toe Psychosocial/ Personal History: She has never been . She has 1 son. She does not work. She currently lives with her mother. - Family History Father -: Heart disease Mother -: Heart disease, Hypertension, Diabetes, Cancer Notes: breast cancer - Social History Alcohol use: Yes CD- Drugs: No Caffeine use: No Review of Systems 10-point ROS is otherwise unremarkable Physical Examination - Vital Signs Temperature: 98.3 F Blood Pressure: 115/65 Pulse: 86 Respirations: 20 Pulse Ox (%): 98 - Physical Exam General: Alert, In no apparent distress, Oriented x3 HEENT: Atraumatic, PERRLA, Mucous membr. moist/pink, EOMI, Sclerae nonicteric Neck: Supple, 2+ carotid pulse no bruit, No LAD, Without JVD or thyroid abnormality Respiratory: Clear to auscultation bilaterally, Normal air movement Cardiovascular: Regular rate/rhythm, Normal S1 S2 Gastrointestinal: Normal bowel sounds, No tenderness Musculoskeletal: No tenderness Integumentary: No rashes Neurological: Normal gait, Normal speech, Normal strength at 5/5 x4 extr, Normal tone, Normal affect Lymphatics: No axilla or inguinal lymphadenopathy - Studies Laboratory Data (last 24 hrs) 07/26/18 12:50: PT 13.9 H, INR 1.18 07/26/18 12:50: WBC 9.7, Hgb 12.1, Hct 36.2, Plt Count 250 07/26/18 12:50: Sodium 142, Potassium 4.2, BUN 28 H, Creatinine 1.06, Glucose 146 H, Magnesium 2.1 D, Total Bilirubin 0.2, AST 104 H, ALT 100 H, Alkaline Phosphatase 79 Assessment and Plan - Problems (Diagnosis) (1) Supraventricular tachycardia Current Visit: Yes Status: Acute (2) Shortness of breath Current Visit: Yes Status: Acute (3) Bipolar disorder Onset Date: 02/14/16 Current Visit: No Status: Chronic Qualifiers: (4) Diabetes mellitus type II, non insulin dependent Onset Date: 02/14/16 Current Visit: No Status: Chronic (5) History of pulmonary embolus (PE) Current Visit: No Status: Chronic (6) DVT (deep venous thrombosis) Onset Date: 06/10/18 Current Visit: No Status: Resolved Qualifiers: - Plan This is a 52-year-old female with: Supraventricular tachycardia Dyspnea History of bipolar disease Major depressive disorder Anxiety Type 2 diabetes mellitus, without complication History of right leg DVT History of pulmonary embolism Patient will be admitted to the hospital for observation overnight. We will monitor on tele, continue IV fluids. Trend troponins x2 If remained stable overnight, can be discharged home in the morning. - Advance Directives Does patient have a Living Will: No Does patient have a Durable POA for Healthcare: No
[2018-07-26] MEDS ORDERED: HYDROCODONE/APAP 10/325 TAB PO PRN (22:23)
[2018-07-26] MEDS ORDERED: DIVALPROEX DR 500MG TAB PO ONE (23:00)
[2018-07-26] MEDS ORDERED: OLANZapine 10 MG TABLET PO ONE (23:00)
[2018-07-26] MEDS ORDERED: VENLAFAXINE HCL XR 75 MG CAP PO ONE (23:00)
[2018-07-26] MEDS ORDERED: APIXABAN 5 MG TABLET PO ONE (23:00)
[2018-07-26] MEDS ORDERED: PREGABALIN 150 MG CAP PO ONE (23:00)
[2018-07-26] MEDS ORDERED: ATORVASTATIN 20 MG TAB PO ONE (23:00)
[2018-07-26] MEDS ORDERED: ALPRAZOLAM 1 MG TABLET PO ONE (23:00)
[2018-07-26] MEDS: INSULIN -REGULAR HUMAN 50 UNIT/0.5 ML ML IV SCH (23:05)
[2018-07-27] MEDS ORDERED: CODEINE 30MG/APAP 300MG TAB PO PRN (02:13)
[2018-07-27 04:53] LABS: Albumin 2.9 g/dL (3.4-5.0); Bilirubin Total 0.1 mg/dL (0.2-1.0); Potassium 3.9 mmol/L (3.5-5.1); Protein, Total 6.2 g/dL (6.4-8.2)
[2018-07-27 05:17] LABS: Absolute Lymphocytes (CBC) 1.8 K/uL (0.7-4.9); Absolute Monocytes 0.4 K/uL (0.1-1.3); Absolute Neutrophil 3.6 K/uL (1.8-8.0); Basophils % 0.2 % (0-1.3); Eosinophils % 2.6 % (0-4.4); Hematocrit 32.1 % (36.0-45.0); Lymphocytes % 29.5 % (15.3-44.8); Monocytes % 7.3 % (3.3-12.3); RBC Red Blood Cell Count 3.68 M/uL (3.86-4.86)
[2018-07-27] MEDS: INSULIN -REGULAR HUMAN 50 UNIT/0.5 ML ML IV SCH ×2 (07:30→11:30)
[2018-07-27] MEDS ORDERED: PANTOPRAZOLE 40MG TABLET PO SCH (07:30)
[2018-07-27] MEDS ORDERED: METFORMIN ER 500 MG TAB PO SCH (08:00)
[2018-07-27] MEDS ORDERED: ALPRAZOLAM 1 MG TABLET PO SCH (09:00)
[2018-07-27] MEDS ORDERED: PNEUMOCOCCAL VACCINE 0.5 ML IMVAC ONE (09:00)
[2018-07-27] MEDS ORDERED: PREGABALIN 150 MG CAP PO SCH (09:00)
[2018-07-27] MEDS ORDERED: FENOFIBRATE 160 MG TAB PO SCH (09:00)
[2018-07-27] MEDS ORDERED: INFLUENZA VACCINE (for 3y+) 0.5 ML DOSE IMVAC ONE (09:00)
[2018-07-27] MEDS ORDERED: BUPROPION HCL XL 150 MG TAB PO SCH (09:00)
[2018-07-27] MEDS ORDERED: OLANZapine 2.5 MG TAB PO SCH (09:00)
[2018-07-27] MEDS ORDERED: POTASSIUM CL SA 10 MEQ TAB PO ONE (09:00)
[2018-07-27] MEDS ORDERED: PIOGLITAZONE 15 MG TAB PO SCH (09:00)
[2018-07-27] MEDS ORDERED: APIXABAN 5 MG TABLET PO SCH (09:00)
[2018-07-27] MEDS ORDERED: VENLAFAXINE HCL XR 75 MG CAP PO SCH ×2 (09:00→21:00)
[2018-07-27 12:36] VITALS: BP 126/77; TEMP 97.7
--- NOTE | 2018-07-27 12:48 | P.SSS ---
Patient History Date of Service: 07/27/18 Reason for admission: Palpitation History of Present Illness: This is a 52-year-old female with history of diabetes, bipolar disorder, major depressive disorder, anxiety and history of DVT recently admitted for palpitations. Per patient she has not been feeling well for the past couple of days. Starting yesterday, she was sweating a lot, stated that her BP was really high NG not believe. This morning this worsened and she could not wal. She went to the pharmacy to check her blood pressure and heart rate and it was 171, heart rate. She came to the ER. In the ED, she was diagnosed with SVT and given a dose of 12 mg of adenosine which turned her heart rate to normal sinus rhythm. Otherwise, she was hemodynamically stable, troponins negative x1. She was admitted for observation overnight. At the time of my exam, patient was alert oriented x3, in no acute distress, breathing normally and no longer feeling palpitations. Allergies amoxicillin Allergy (Verified 09/03/17 11:26) Unknown aripiprazole [From Abilify] Allergy (Verified 09/03/17 11:26) Unknown meperidine [From Demerol] Allergy (Verified 09/03/17 11:26) Unknown Penicillins Allergy (Verified 09/03/17 11:26) Unknown pentazocine lactate [From Talwin] Allergy (Verified 09/03/17 11:26) Rash Home Medications: Acetaminophen with Codeine [Tylenol with Codeine #4 Tablet] 1 each PO Q6HP PRN 06/09/18 Alprazolam [Xanax] 1 mg PO BID 06/09/18 Atorvastatin Calcium 20 mg PO BEDTIME 06/09/18 Bupropion *Xl* [Wellbutrin XL*] 150 mg PO DAILY 06/09/18 Divalproex Sodium [Depakote] 1,500 mg PO BEDTIME 06/09/18 Insulin Degludec [Tresiba Flextouch U-100] 100 unit SQ DAILY 06/09/18 Insulin Lispro [Humalog] See Protocol SQ ACHS 06/09/18 Metformin ER [Glucophage ER*] 500 mg PO BID 06/09/18 OLANZapine [Zyprexa*] 10 mg PO BEDTIME 06/09/18 Olanzapine [Zyprexa] 5 mg PO DAILY 06/09/18 Pantoprazole [Protonix Tab*] 40 mg PO BID 06/09/18 Pregabalin [Lyrica] 150 mg PO TID 06/09/18 Venlafaxine HCl [Venlafaxine HCl ER] 150 mg PO DAILY 06/09/18 Apixaban [Eliquis] 5 mg PO BID 07/26/18 Fenofibrate [Tricor*] 145 mg PO DAILY 07/26/18 Pioglitazone HCl 1 tab PO DAILY 07/26/18 Venlafaxine HCl [Venlafaxine HCl ER] 75 mg PO BEDTIME 07/26/18 - Past Medical/Surgical History Has patient received pneumonia vaccine in the past: No Diabetic: Yes -: Diabetes mellitus type 2 -: Hyperlipidemia -: Bipolar disorder, [facility] -: Diverticulosis -: Right DVT with bilateral PE -: Carpal tunnel syndrome -: History of suicidal ideation -: Asthma -: Obstructive sleep apnea -: Tobacco abuse -: Mild sleep apnea -: dvt- right leg -: Appendectomy -: Hysterectomy -: Left knee surgery -: Carpal tunnel repair of the left wrist -: Colon resection due to diverticulitis -: cervical laminectomy infusion, lumbar herniated disc repair -: I/D of the left toe Psychosocial/ Personal History: She has never been . She has 1 son. She does not work. She currently lives with her mother. - Family History Father -: Heart disease Mother -: Heart disease, Hypertension, Diabetes, Cancer Notes: breast cancer - Social History Smoking Status: Current some day smoker Alcohol use: Yes CD- Drugs: No Caffeine use: No Place of Residence: Home Review of Systems 10-point ROS is otherwise unremarkable Physical Examination - Vital Signs Temperature: 97.7 F Blood Pressure: 126/77 Pulse: 90 Respirations: 20 Pulse Ox (%): 92 - Physical Exam General: Alert, In no apparent distress HEENT: Atraumatic, PERRLA, Mucous membr. moist/pink, EOMI, Sclerae nonicteric Neck: Supple, 2+ carotid pulse no bruit, No LAD, Without JVD or thyroid abnormality Respiratory: Clear to auscultation bilaterally, Normal air movement Cardiovascular: Regular rate/rhythm, Normal S1 S2 Gastrointestinal: Normal bowel sounds, No tenderness Musculoskeletal: No tenderness Integumentary: No rashes Neurological: Normal gait, Normal speech, Normal strength at 5/5 x4 extr, Normal tone, Normal affect Lymphatics: No axilla or inguinal lymphadenopathy - Studies Laboratory Data (last 24 hrs) 07/26/18 12:50: PT 13.9 H, INR 1.18 07/26/18 12:50: WBC 9.7, Hgb 12.1, Hct 36.2, Plt Count 250 07/26/18 12:50: Sodium 142, Potassium 4.2, BUN 28 H, Creatinine 1.06, Glucose 146 H, Magnesium 2.1 D, Total Bilirubin 0.2, AST 104 H, ALT 100 H, Alkaline Phosphatase 79 - Diagnosis (Problem(s)) (1) Supraventricular tachycardia Current Visit: Yes Status: Acute (2) Shortness of breath Current Visit: Yes Status: Acute (3) Bipolar disorder Onset Date: 02/14/16 Current Visit: No Status: Chronic Qualifiers: (4) Diabetes mellitus type II, non insulin dependent Onset Date: 02/14/16 Current Visit: No Status: Chronic (5) History of pulmonary embolus (PE) Current Visit: No Status: Chronic Treatment Summary: Patient was admitted for supraventricular tachycardia status was again seen in the ER. She did not have any more episodes of SVTs or tachycardia overnight. Her chest pain resolved, so did her shortness of breath. At the time of my exam , prior to discharge, she was alert oriented x3, asymptomatic and in no acute distress. She was tolerating a diet, ambulating and remained hemodynamically stable. She was breathing and satting well on room air. Her symptoms/ diagnoses were explained to her that, all questions were answered and patient verbalized understanding. She is to follow up with the primary care physician in 1 week. - Disposition Disposition: ROUTINE DISCHARGE Condition: GOOD Patient Discharge Instructions: Please follow up with your primary care physician in 1 week. Please return to the emergency room for worsening symptoms. Diet: ADA Activity: Ad shikha Physician Review: Patient Assessed, Agree with Above Assessment and Plan Time Spent Managing Pts Care (In Minutes): 55
--- NOTE | 2018-07-27 13:57 | EKG ---
Test Date: 2018-07-26 Test Time: 12:29:38 Master Tax Advisor: ANJU MEASUREMENT RESULTS: Intervals: Rate: 78 FL: 142 QRSD: 88 QT: 324 QTc: 369 [place]: P: 63 FL: 142 QRS: 89 T: 91 INTERPRETIVE STATEMENTS: Normal sinus rhythm Nonspecific T wave abnormality Abnormal ECG Compared to ECG 07/26/2018 12:11:23 T-wave abnormality now present Supraventricular tachycardia no longer present ST (T wave) deviation no longer present Electronically Signed On 07-27-18 13:54:09 OFFICE MACHINES WIRER by Geremias Cuellar
--- NOTE | 2018-07-27 13:58 | EKG ---
Test Date: 2018-07-26 Test Time: 12:11:23 First Crusher: DELIA MEASUREMENT RESULTS: Intervals: Rate: 173 KS: QRSD: 78 QT: 274 QTc: 464 [place]: P: KS: QRS: 83 T: 258 INTERPRETIVE STATEMENTS: Supraventricular tachycardia Nonspecific ST and T wave abnormality Abnormal ECG Compared to ECG 06/09/2018 03:08:14 ST (T wave) deviation now present Sinus rhythm no longer present Right-axis deviation no longer present Electronically Signed On 07-27-18 13:54:15 COMPREHENSIVE ADVISOR by Geremias Cuellar
[2018-07-27 15:03] VITALS: O2SAT 91
[2018-07-27] MEDS ORDERED: OLANZapine 10 MG TABLET PO SCH (21:00)
[2018-07-27] MEDS ORDERED: ATORVASTATIN 20 MG TAB PO SCH (21:00)
[2018-07-27] MEDS ORDERED: DIVALPROEX DR 500MG TAB PO SCH (21:00)
== END 2018-07-27 14:48 | disposition home or self-care (01) ==
LOC: ER 11:58 → ERHOLD 14:51 → 4TH 16:13
PROVIDERS: ADMIT Family Medicine; ATTEND Family Medicine
DX: I47.1 Supraventricular tachycardia (principal); E11.9 Type 2 diabetes mellitus without complications; F33.9 Major depressive disorder, recurrent, unspecified; E78.5 Hyperlipidemia, unspecified; Z86.718 Personal history of other venous thrombosis and embolism; F17.210 Nicotine dependence, cigarettes, uncomplicated; Z88.0 Allergy status to penicillin
CPT/HCPCS: 36415; 71045; 80048; 80053; 80076; 80164; 82962 ×3; 83735; 83880; 84439; 84443; 84484 ×3; 85025 ×2; 85610; 93005 ×2; 94760 ×3; 96361; 96374; 96375; 99285; G0378 ×2; J0153; J3010; J7030

== ENCOUNTER 2018-10-07 02:14 | Emergency (ER) | payer OTHER ==
--- OUTSIDE RECORDS SUMMARY | 2018-10-07 02:18 | XMS REPORT ---
:1965 [facility] Address [address] [place] [address] [address] [place] [address] Care Team Providers Name Role Phone Unavailable Unavailable Unavailable Problems This patient has no known problems. Allergies, Adverse Reactions, Alerts This patient has no known allergies or adverse reactions. Medications This patient has no known medications.
--- OUTSIDE RECORDS SUMMARY | 2018-10-07 02:18 | XMS REPORT | Continuity of Care Document ---
:1965 Author Organization Interface Problems Problem Status Onset Classification Date Comments Source Date Reported DX: Active 05/29/20 [place] R13.10=DYSPHAGIA, 18 UNSPECIFIED, R10.1 UNK Active 04/17/20 [facility] 18 GERD WO Active 04/17/20 [facility] ESOPHAGITIS 18 K21.9, R13.10, Active 04/04/20 [facility] K44.9 18 Gout Active 08/23/19 Finding 09/03/2017 [...] Finding 09/03/[address] [facility] right fifth toe [facility] [place] History of Active Finding 09/03/[address] [facility] St[facility] pulmonary embolus [facility] [place] DYSPHAGIA, [...] DAILY AT Active [facility] St. SUPPER 017 [facility] [place] Ciprofloxacin [...] DX 05/30 - Swallow w Swallow - [facility] [place] Esophagus Esophagus Function Function DX DX COMPARISON: [...] from the stomach into proximal small bowel. [id number] Chest 2 Chest 2 Patient Name: MANJINDER DODSON 04/19 - views DX views DX /2017 - [facility] [place] : 1965; Age: 52 years Female MR: [id number] Read by: Valery Saleh MD Dictated Date/time: [...] Recommend CT chest for further characterization. SL: [id number] Barium Barium Fluoro Time and Dose: 6.1min/369.66mGy [...] is visualized at the GE junction. SL: [id number] Laboratory Bedside 222 mg/dl 65 - 120 09/[address] [facility] St. Studies Glucose /2017 [facility] [place] Laboratory Prothrombin 12.3 9.5 - 12.5 08/[address] [facility] St. Studies Time SECONDS /2017 [facility] [place] Laboratory INR 1.04 08/[address] [facility] St. Studies Internationa /2017 [facility] l Normalized [place] Ratio Laboratory Activated 29.2 24.3 - 08/[address] [facility] St. Studies Partial SECONDS 36.9 [facility] Thromboplast [place] Time Laboratory White Blood 8.1 K/uL 4.3 - 10.9 08/[address] [facility] St. Studies Count /2017 [facility] [place] Laboratory Red Cell 14.1 % 12.1 - 08/[address] [facility] St. Studies Distribution 15.2 [facility] Width [place] Laboratory Red Blood 3.88 M/uL 3.86 - 08/[address] [facility] St. Studies Count 4.86 /2017 [facility] [place] Laboratory Platelet 243 K/uL 152 - 406 08/[address] [facility] St. Studies Count /2017 [facility] [place] Laboratory Neutrophils 58.7 % 41.7 - [address] [facility] St. Studies % 73.7 /2017 [facility] [place] Laboratory Monocytes % 4.7 % 3.3 - 12.3 08/[address] [facility] St. Studies /2017 [facility] [place] Laboratory Mean 9.0 fL 7.6 - 11.3 08/[address] [facility] St. Studies Platelet /2017 [facility] Volume [place] Laboratory Mean 84.9 fL 80 - 100 08/[address] [facility] St. Studies Corpuscular /2017 [facility] Volume [place] Laboratory Mean 32.8 g/dL 32.0 - 08/30 [facility]. Studies Corpuscular 36.0 /2017 [facility] Hemoglobin [place] Concent Laboratory Mean 27.9 pg 27.0 - 08/30 [facility]. Studies Corpuscular 35.0 [facility] Hemoglobin [place] Laboratory Lymphocytes 34.2 % 15.3 - [address] [facility] St. Studies % 44.8 /2017 [facility] [place] Laboratory Hemoglobin 10.8 g/dL 12.0 - 08/[address] [facility] St. Studies 15.0 /2017 [facility] [place] Laboratory Hematocrit 32.9 % 36.0 - 08/[address] [facility] St. Studies 45.0 /2017 [facility] [place] Laboratory Eosinophils 1.9 % 0 - 4.4 08/[address] [facility] St. Studies % /2017 [facility] [place] Laboratory Basophils % 0.5 % 0 - 1.3 08/[address] [facility] St. Studies [facility] [place] Laboratory Absolute 4.8 K/uL 1.8 - 8.0 08/[address] [facility] St. Studies Neutrophil /2017 [facility] [place] Laboratory Absolute 0.4 K/uL 0.1 - 1.3 08/30 [facility]. Studies Monocytes /2017 [facility] (CBC) [place] Laboratory Absolute 2.8 K/uL 0.7 - 4.9 08/30 [facility]. Studies Lymphocytes /2017 [facility] (CBC) [place] Laboratory Absolute 0.2 K/uL 0 - 0.5 08/30 [facility]. Studies Eosinophils /2017 [facility] (CBC) [place] Laboratory Absolute 0.0 K/uL 0 - 0.5 08/[address] [facility] St. Studies Basophils /2017 [facility] (CBC) [place] Laboratory Urine pH 6.0 08/[address] [facility] St. Studies /2018 [facility] [place] Laboratory Urine 1.0 mg/dL 08/[address] [facility] St. Studies Urobilinogen /2017 [facility] [place] Laboratory Urine Total Urine 08/30 St. Studies Protein Total /2017 [facility] Protein [place] Laboratory Urine 1.025 08/[address] [facility] St. Studies Specific /2017 [facility] [place] Laboratory Urine Urine 08/30 St. Studies Nitrite Nitrite /2017 [facility] [place] Laboratory Urine Urine 08/30 St. Studies Leukocyte Leukocyte /2017 [facility] Esterase Esterase [place] Laboratory Urine Urine 08/30 St. Studies Ketones Ketones /2017 [facility] [place] Laboratory Urine Urine 08/30 . Studies Glucose Glucose [facility] [place] Laboratory Urine Color Urine 08/30 . Studies Color /2017 [facility] [place] Laboratory Urine Blood Urine 08/[address] [facility] St. Studies Blood /2017 [facility] [place] Laboratory Urine Urine 08/30 [facility]. Studies Bilirubin Bilirubin /2017 [facility] [place] Laboratory Urine Urine 08/30 [facility]. Studies Appearance Appearance /2017 [facility] [place] Laboratory Uric Acid 7.1 mg/dL 2.6 - 8.0 08/[address] [facility] St. Studies /2017 [facility] [place] Laboratory Estimat 61 mL/min [address] [facility] St. Studies Glomerular /2017 [facility] Filtration [place] Rate Laboratory Creatinine 0.97 mg/dL 0.44 - [address] [facility] St. Studies 1.00 [facility] [place] Laboratory Blood Urea 23 mg/dL 6 - 20 08/[address] [facility] St. Studies Nitrogen /2017 [facility] [place] Laboratory Sodium Level 133 mEq/L 135 - 145 08/[address] [facility] St. Studies /2018 [facility] [place] Laboratory Potassium 3.6 mEq/L 3.6 - 5.0 08/[address] [facility] St. Studies Level /2017 [facility] [place] Laboratory Glucose 288 mg/dL 65 - 120 08/[address] [facility] St. Studies Level /2018 [facility] [place] Laboratory Chloride 99 mEq/L 101 - 111 08/[address] [facility] St. Studies Level /2018 [facility] [place] Laboratory Carbon 25 mEq/L 21 - 31 08/[address] [facility] St. Studies Dioxide /2017 [facility] Level [place] Laboratory Calcium 9.0 mg/dL 8.5 - 10.5 08/[address] [facility] St. Studies Level /2017 [facility] [place] Microbiolo Staph Aureus Staph 07/[address] [facility] St. gy Studies Aureus [facility] [place] Laboratory Sedimentatio 32 mm/HR 0 - 30 07/[address] [facility] St. Studies n Rate [facility] [place] Laboratory C-Reactive 36.4 mg/L 07/[address] [facility] St. Studies Protein [facility] [place] Laboratory Hemoglobin 11.1 % 4 - 6.0 07/[address] [facility] St. Studies A1c [facility] [place] Vital Signs Vital Sign Value Date Comments Source Temperature Oral (F) 98.6 F 09/03/[address] [facility] [place] Heart Rate 62 09/03/[address] [facility] [place] Respitory Rate 16 09/03/[address] [facility] [place] Systolic (mm Hg) 128 09/03/[address] [facility] [place] Diastolic (mm Hg) 69 09/03/[address] [facility] [place] Height 71 08/30/[address] [facility] St[facility] [place] - [place] Weight 218 08/30/[address] [facility] [place] Encounters Location Location Encounter Encounter Reason Attending ADM DC Status Source Details Type Number For Provider Date Date Visit [facility]charged [id number] 06/18 06/[address] [facility] Rec[facility] [place] [facility] St. Departed [id number] 06/19 06/[address] [facility] Surgical 79 [facility] [place] [facility] [place] [facility] St. Discharged [id number] 07/09 07/[address] [facility] [place] [facility] St. Departed [id number] 07/18 07/[address] [facility] St[facility] Emergency [facility] [place] [facility] St. Registered [id number] 07/[address] [facility] Referred [facility] [place] [facility] St. Discharged [id number] 08/20 08/[address] [facility] Rec[facility] [place] [facility] St. Discharged [id number] 08/23 08/[address] [facility] St[facility] Inpatient 66 [facility] [place] [facility] St. Registered [id number] 08/[address] [facility] St[facility] Recurring [facility] [place] [facility] St. Departed [id number] 08/27 08/[address] [facility] St[facility] [place] Emergency [facility] [place] [facility] St. Departed [id number] 09/03 09/[address] [facility] St. [place] Surgical 97 [place] - [place] [facility] [place] Procedures Procedure Code Date Perfomer Comments Source Foot Left 3 View [id number] 08/27/[address] [facility] St. [place] - [place] Anaerobic Blood [id number] 08/23/[address] [facility] St[facility] [place] - Culture [place] Aerobic Blood [id number] 08/23/[address] [facility] StMyesha [place] - Culture [place] Anaerobic Blood [id number] 07/18/[address] [facility] St[facility] [place] - Culture [place] Aerobic Blood [id number] 07/18/[address] [facility] St[facility] [place] - Culture [place] Gram Stain [id number] 07/18/[address] [facility] St[facility] [place] - [place] Culture & [id number] 07/18/[address] [facility] St. [place] - Sensitivity [place] Foot Left 3 View [id number] 07/18/[address] [facility] St. [place] - [place] DETACHMENT AT [id number] 06/19/[address] [facility] St. [place] - LEFT 2ND TOE, [place] COMPLETE, OPEN APPROACH AMPUTATION OF TOE [id number] 06/19/[address] [facility] St. [place] - [place] Gram Stain [id number] 06/18/[address] [facility] St. [place] - [place] Anaerobic Culture [id number] 06/18/[address] [facility] St. Huff[place] - Román
--- OUTSIDE RECORDS SUMMARY | 2018-10-07 02:18 | XMS REPORT | Summary of Care ---
:1965 Author Name Darling Davison M.A. Address Unavailable Unavailable , Care Team Providers Name Role Phone CHIQUITA ROLLINS MD Unavailable Unavailable CHIQUITA ARMSTRONG MD Unavailable Unavailable Functional Status Name Dates Details Functional status health issues are not documented Status: Name Dates Details Cognitive status health issues are not documented Status: Problems Name Dates Details Aftercare following surgery (V58.89, Z48.89) Status: Active Medications Name Dates Details MetFORMIN HCl - 500 MG Oral Tablet Refills: 0 R.N.Active ALPRAZolam 1 MG Oral Tablet Refills: 0 R.N.Active OLANZapine 5 MG Oral Tablet Refills: 0 R.N.Active Venlafaxine HCl ER 150 MG Oral Tablet Extended Release 24 Hour Refills: 0 R.N.Active Lyrica 150 MG Oral Capsule Refills: 0 R.N.Active Pantoprazole Sodium 40 MG Oral Tablet Delayed Release Refills: 0 R.N.Active Depakote 500 MG Oral Tablet Delayed Release Refills: 0 R.N.Active OLANZapine 10 MG Oral Tablet Refills: 0 R.N.Active Fenofibrate 145 MG Oral Tablet Refills: 0 R.N.Active Xarelto 20 MG Oral Tablet Refills: 0 R.N.Active HumaLOG SOLN Refills: 0 R.N.Active Tresiba FlexTouch 100 UNIT/ML Subcutaneous Solution Pen-injector Refills: 0 R.N.Active Allergies and Adverse Reactions Name Dates Details [...] unknown Vital Signs Date Test Result Details No Known Vitals to report Results Date Description Value Details Results not documented Plan of Care Name Dates Details Planned Observations Planned Goals not documented Instructions Name Dates Details Instructions not documented Encounters Appointment; NABOR ARIAS M.D. On: 17-Apr-2018 9:00 Encounter Diagnosis: Problem not documented Appointment; NABOR ARIAS M.D. On: 01-May-2018 11:15 Encounter Diagnosis: Problem not documented Appointment; NABOR ARIAS M.D. On: 31-Jul-2018 9:15 Encounter Diagnosis: Problem not documented
[2018-10-07] MEDS ORDERED: NA CHLORIDE 0.9% 1,000 ML ONE ×2 (02:57→04:31)
[2018-10-07 03:55] LABS: Absolute Lymphocytes (CBC) 1.8 K/uL (0.7-4.9); Absolute Monocytes 0.5 K/uL (0.1-1.3); Absolute Neutrophil 5.1 K/uL (1.8-8.0); Basophils % 0.3 % (0-1.3); Eosinophils % 1.4 % (0-4.4); MPV 9.7 fL (7.6-11.3); Monocytes % 6.1 % (3.3-12.3); RBC Red Blood Cell Count 4.85 M/uL (3.86-4.86)
[2018-10-07 04:05] LABS: Potassium 3.7 mmol/L (3.5-5.1)
[2018-10-07] MEDS ORDERED: INSULIN -REGULAR HUMAN 50 UNIT/0.5 ML ML ONE (04:33)
--- NOTE | 2018-10-07 05:16 | ER ---
Nurse's Notes [facility] Name: Renetta Ramsay Age: 52 yrs Sex: Female : 1965 Arrival Date: 10/07/2018 Time: 02:15 Bed 5 Private MD: Diego Solorio E Diagnosis: Hyperglycemia, unspecified Presentation: 10/07 02:30 Presenting complaint: Patient states: that after drinking a lot of juice, tea, lemonade fc and eating watermelon pouches her blood sugar was over 600 according to her monitor. Then she took Humalog 2 units sq and Levemir 120 units sq. Transition of care: patient was not received from another setting of care. Onset of symptoms was October 07, 2018. Risk Assessment: Do you want to hurt yourself or someone else? Patient reports no desire to harm self or others. Initial Sepsis Screen: Does the patient meet any 2 criteria? No. Patient's initial sepsis screen is negative. Does the patient have a suspected source of infection? No. Patient's initial sepsis screen is negative. Care prior to arrival: None. 02:30 Method Of Arrival: Wheelchair fc 02:30 Acuity: OLY 2 fc Historical: - Allergies: 02:56 Amoxicillin; fc 02:56 Demerol; fc 02:56 PENICILLINS; fc 02:56 pentazocine lactate; fc 02:56 Talwin; fc 02:56 ARIPIPRAZOLE; fc - Home Meds: 02:56 metformin 500 mg Oral Tb24 1 tab 2 times per day [Active]; Effexor XR 225 mg Oral cp24 fc 1 cap once daily [Active]; carvedilol 12.5 mg oral tab 1 tab 2 times per day [Active]; Eliquis 5 mg oral tab 1 tab 2 times per day [Active]; furosemide 40 mg Oral tab 1 tab once daily [Active]; pioglitazone 30 mg oral tab 1 tab once daily [Active]; pantoprazole 40 mg Oral TbEC 1 tab 2 times per day [Active]; Xanax 1 mg oral tab 1 tab twice a day [Active]; olanzapine 10 mg oral tab 1 tab in am [Active]; olanzapine 5 mg oral tab 1 tab nightly [Active]; Wellbutrin XL 150 mg Oral Tb24 1 tab once daily [Active]; fenofibrate oral 145 mg oral 1 cap nightly [Active]; Lyrica 150 mg Oral 2 times per day [Active]; divalproex 500 mg oral TbEC 3 tabs nightly [Active]; Humalog 100 unit/mL Sub-Q crtg 30 unit before meals [Active]; Levemir 100 unit/mL subcutaneous soln 100 unit daily [Active]; - PMHx: 02:56 ADD/ADHD; Bipolar disorder; Chronic pain; Diabetes - NIDDM; High Cholesterol; fc Pancreatitis; osteomyelitis; Depression; 02:57 Hypertension; fc - Immunization history:: Last tetanus immunization: unknown, Flu vaccine is up to date. - Social history:: Smoking status: Patient/guardian denies using tobacco, the patient reports quitting approximately .5 years ago, Patient uses alcohol, occasionally. - Ebola Screening: : Patient negative for fever greater than or equal to 101.5 degrees Fahrenheit, and additional compatible Ebola Virus Disease symptoms Patient denies exposure to infectious person Patient denies travel to an Ebola-affected area in the 21 days before illness onset. Screenin:30 Abuse screen: Denies threats or abuse. Nutritional screening: No deficits noted. fc Tuberculosis screening: No symptoms or risk factors identified. Assessment: 03:18 General: Appears in no apparent distress. Behavior is calm, cooperative, appropriate ea for age. Pain: Denies pain. Neuro: Level of Consciousness is awake, alert, obeys commands, Oriented to person, place, time, situation. Cardiovascular: Patient's skin is warm and dry. Respiratory: Airway is patent Respiratory effort is even, unlabored, Respiratory pattern is regular, symmetrical. Derm: Skin is dry, Skin is pale, Skin temperature is warm. 04:29 Reassessment: Patient and/or family updated on plan of care and expected duration. Pain ea level reassessed. Patient is alert, oriented x 3, equal unlabored respirations, skin warm/dry/pink. 05:15 Reassessment: Patient and/or family updated on plan of care and expected duration. Pain ea level reassessed. Patient is alert, oriented x 3, equal unlabored respirations, skin warm/dry/pink. 05:32 Reassessment: Patient and/or family updated on plan of care and expected duration. Pain ea level reassessed. Patient is alert, oriented x 3, equal unlabored respirations, skin warm/dry/pink. Discharge instructions given to patient, verbalized the understanding of instruction. Vital Signs: 02:30 BP 123 / 74; Pulse 80; Resp 18; Temp 98.3(O); Pulse Ox 93% on R/A; Weight 121.56 kg fc (R); Height 5 ft. 11 in. (180.34 cm) (R); Pain 7/10; 03:30 BP 127 / 76; Pulse 80; Resp 18; Pulse Ox 99% on R/A; ea 04:30 BP 107 / 70; Pulse 78; Resp 18; Pulse Ox 99% on R/A; ea 05:15 BP 98 / 64; Pulse 72; Resp 18; Pulse Ox 100% on R/A; ea 02:30 Body Mass Index 37.38 (121.56 kg, 180.34 cm) ED Course: 02:15 Patient arrived in ED. ds1 02:16 Unknown, Unknown is Private Physician. ds1 02:16 Diego Solorio MD is Private Physician. ds1 02:30 Arm band placed on Patient placed in an exam room, on a stretcher. fc 02:30 Patient has correct armband on for positive identification. Placed in gown. Bed in low fc position. Call light in reach. Side rails up X 1. Pulse ox on. NIBP on. 02:37 Francisco Browning MD is Attending Physician. gs 02:46 Triage completed. fc 03:11 Missed attempt(s): 22 gauge in left antecubital area. lt1 03:11 Initial lab(s) drawn, by me, sent to lab. Inserted saline lock: 22 gauge in left hand, lt1 using aseptic technique. 03:44 Stacy Gillis RN is Primary Nurse. ea 05:30 No provider procedures requiring assistance completed. ea 05:30 IV discontinued, intact, bleeding controlled, No redness/swelling at site. Pressure ea dressing applied. Administered Medications: 03:16 Drug: NS 0.9% 1000 ml Route: IV; Rate: 1 bolus; Site: left antecubital; ea 03:45 Follow up: IV Status: Completed infusion; IV Intake: 1000ml ea 04:20 Drug: NS 0.9% 1000 ml Route: IV; Rate: 1 bolus; Site: left hand; ea 05:46 Follow up: IV Intake: 1000ml ea 04:30 Drug: Insulin Regular Human 10 units {Co-Signature: [email or web address] (José Miguel Tomlin RN).} Route: ea Sub-Q; Site: left upper arm; 05:30 Follow up: Response: No adverse reaction ea Point of Care Testing: Blood Glucose: 05:13 Blood Glucose: 351 mg/dL; ea 02:41 greater then 500 lt1 Ranges: Intake: 03:45 IV: 1000ml; Total: 1000ml. ea 05:46 IV: 1000ml; Total: 2000ml. ea Outcome: 05:15 Discharge ordered by . 05:37 Condition: improved ea 05:37 Discharge instructions given to patient, Instructed on discharge instructions, follow up and referral plans. Demonstrated understanding of instructions, follow-up care. 05:39 Discharged to home ambulatory. ea 05:44 Patient left the ED. ea Signatures: Palma Benjamin, RN RN Rissa Christopher ds1 Stacy Gillis RN RN ea Starr, Gregory, MD MD Avila, Ayala lt1 José Miguel Tomlin RN [email or web address]
--- NOTE | 2018-10-07 05:16 | EDPHYS ---
Physician Documentation [facility] Name: Renetta Ramsay Age: 52 yrs Sex: Female : 1965 Arrival Date: 10/07/2018 Time: 02:15 Bed 5 Private MD: Diego Solorio E ED Physician Francisco Browning HPI: 10/07 05:13 This 52 yrs old Female presents to ER via Wheelchair with complaints of High gs Blood Sugar. 05:13 The patient or guardian reports hyperglycemia, that was potentially precipitated by gs forgetting medications. Onset: The symptoms/episode began/occurred 2 week(s) ago. Associated signs and symptoms: Pertinent negatives: vomiting. Current symptoms: In the emergency department the patient's symptoms are unchanged from the initial presentation. The patient has experienced similar episodes in the past, multiple times. The patient has not recently seen a physician. Historical: - Allergies: 02:56 Amoxicillin; fc 02:56 Demerol; fc 02:56 PENICILLINS; fc 02:56 pentazocine lactate; fc 02:56 Talwin; fc 02:56 ARIPIPRAZOLE; fc - Home Meds: 02:56 metformin 500 mg Oral Tb24 1 tab 2 times per day [Active]; Effexor XR 225 mg Oral cp24 fc 1 cap once daily [Active]; carvedilol 12.5 mg oral tab 1 tab 2 times per day [Active]; Eliquis 5 mg oral tab 1 tab 2 times per day [Active]; furosemide 40 mg Oral tab 1 tab once daily [Active]; pioglitazone 30 mg oral tab 1 tab once daily [Active]; pantoprazole 40 mg Oral TbEC 1 tab 2 times per day [Active]; Xanax 1 mg oral tab 1 tab twice a day [Active]; olanzapine 10 mg oral tab 1 tab in am [Active]; olanzapine 5 mg oral tab 1 tab nightly [Active]; Wellbutrin XL 150 mg Oral Tb24 1 tab once daily [Active]; fenofibrate oral 145 mg oral 1 cap nightly [Active]; Lyrica 150 mg Oral 2 times per day [Active]; divalproex 500 mg oral TbEC 3 tabs nightly [Active]; Humalog 100 unit/mL Sub-Q crtg 30 unit before meals [Active]; Levemir 100 unit/mL subcutaneous soln 100 unit daily [Active]; - PMHx: 02:56 ADD/ADHD; Bipolar disorder; Chronic pain; Diabetes - NIDDM; High Cholesterol; fc Pancreatitis; osteomyelitis; Depression; 02:57 Hypertension; fc - Immunization history:: Last tetanus immunization: unknown, Flu vaccine is up to date. - Social history:: Smoking status: Patient/guardian denies using tobacco, the patient reports quitting approximately .5 years ago, Patient uses alcohol, occasionally. - Ebola Screening: : Patient negative for fever greater than or equal to 101.5 degrees Fahrenheit, and additional compatible Ebola Virus Disease symptoms Patient denies exposure to infectious person Patient denies travel to an Ebola-affected area in the 21 days before illness onset. ROS: 05:13 All other systems are negative. gs Exam: 05:13 Head/Face: Normocephalic, atraumatic. Eyes: Pupils equal round and reactive to light, gs extra-ocular motions intact. Lids and lashes normal. Conjunctiva and sclera are non-icteric and not injected. Cornea within normal limits. Periorbital areas with no swelling, redness, or edema. ENT: Nares patent. No nasal discharge, no septal abnormalities noted. Tympanic membranes are normal and external auditory canals are clear. Oropharynx with no redness, swelling, or masses, exudates, or evidence of obstruction, uvula midline. Mucous membranes moist. Neck: Trachea midline, no thyromegaly or masses palpated, and no cervical lymphadenopathy. Supple, full range of motion without nuchal rigidity, or vertebral point tenderness. No Meningismus. Chest/axilla: Normal chest wall appearance and motion. Nontender with no deformity. No lesions are appreciated. Cardiovascular: Regular rate and rhythm with a normal S1 and S2. No gallops, murmurs, or rubs. Normal PMI, no JVD. No pulse deficits. Respiratory: Lungs have equal breath sounds bilaterally, clear to auscultation and percussion. No rales, rhonchi or wheezes noted. No increased work of breathing, no retractions or nasal flaring. Abdomen/GI: Soft, non-tender, with normal bowel sounds. No distension or tympany. No guarding or rebound. No evidence of tenderness throughout. Back: No spinal tenderness. No costovertebral tenderness. Full range of motion. Skin: Warm, dry with normal turgor. Normal color with no rashes, no lesions, and no evidence of cellulitis. MS/ Extremity: Pulses equal, no cyanosis. Neurovascular intact. Full, normal range of motion. Neuro: Awake and alert, GCS 15, oriented to person, place, time, and situation. Cranial nerves II-XII grossly intact. Motor strength 5/5 in all extremities. Sensory grossly intact. Cerebellar exam normal. Normal gait. 05:13 Constitutional: The patient appears alert, awake. Vital Signs: 02:30 BP 123 / 74; Pulse 80; Resp 18; Temp 98.3(O); Pulse Ox 93% on R/A; Weight 121.56 kg fc (R); Height 5 ft. 11 in. (180.34 cm) (R); Pain 7/10; 03:30 BP 127 / 76; Pulse 80; Resp 18; Pulse Ox 99% on R/A; ea 04:30 BP 107 / 70; Pulse 78; Resp 18; Pulse Ox 99% on R/A; ea 05:15 BP 98 / 64; Pulse 72; Resp 18; Pulse Ox 100% on R/A; ea 02:30 Body Mass Index 37.38 (121.56 kg, 180.34 cm) fc MDM: 03:27 Patient medically screened. gs 05:13 Differential diagnosis: DKA, hyperglycemia. Data reviewed: vital signs, nurses notes, gs lab test result(s). Counseling: I had a detailed discussion with the patient and/or guardian regarding: the historical points, exam findings, and any diagnostic results supporting the discharge/admit diagnosis, lab results. Response to treatment: the patient's symptoms have markedly improved after treatment, the patient's condition has returned to base line. 10/07 02:41 Order name: Glucose, Ancillary Testing; Complete Time: 03:49 EDMS 10/07 02:43 Order name: CBC with Diff; Complete Time: 03:58 gs 10/07 02:43 Order name: Basic Metabolic Panel; Complete Time: 04:07 gs 10/07 02:37 Order name: Fingerstick Glucose; Complete Time: 02:43 gs 10/07 05:08 Order name: Fingerstick Glucose; Complete Time: 05:30 gs Administered Medications: 03:16 Drug: NS 0.9% 1000 ml Route: IV; Rate: 1 bolus; Site: left antecubital; ea 03:45 Follow up: IV Status: Completed infusion; IV Intake: 1000ml 04:20 Drug: NS 0.9% 1000 ml Route: IV; Rate: 1 bolus; Site: left hand; ea 05:46 Follow up: IV Intake: 1000ml ea 04:30 Drug: Insulin Regular Human 10 units {Co-Signature: [email or web address] (José Miguel Tomlin RN).} Route: ea Sub-Q; Site: left upper arm; 05:30 Follow up: Response: No adverse reaction ea Point of Care Testing: Blood Glucose: 05:13 Blood Glucose: 351 mg/dL; ea 02:41 greater then 500 lt1 Ranges: Critical Glucose Levels:Adult <50 mg/dl or >400 mg/dl <40 mg/dl or >180 mg/dl Disposition: 10/07/18 05:15 Discharged to Home. Impression: Hyperglycemia, unspecified. - Condition is Stable. - Discharge Instructions: Hyperglycemia, Hyperglycemia, [id number]. - Medication Reconciliation Form, Thank You Letter, Antibiotic Education, Prescription Opioid Use form. - Follow up: Private Physician; When: 2 - 3 days; Reason: Re-evaluation by your physician. - Notes: TAKE YOUR MEDICINE PRESCRIBED Signatures: Dispatcher [employer] EDPalma Cerda RN RN Stacy Mccullough RN Francisco Banuelos ea, MD MD gs Jonathon Davies RN jd3 Corrections: (The following items were deleted from the chart) 05:44 05:15 10/07/2018 05:15 Discharged to Home. Impression: Hyperglycemia, unspecified. ea Condition is Stable. Forms are Medication Reconciliation Form, Thank You Letter, Antibiotic Education, Prescription Opioid Use. Follow up: Private Physician; When: 2 - 3 days; Reason: Re-evaluation by your physician. gs
[2018-10-07 06:21] VITALS: TEMP 98.3
[2018-10-07 06:24] VITALS: BP 98/64; O2SAT 100
== END 2018-10-07 05:44 | disposition home or self-care (01) ==
LOC: ER 02:14
DX: E11.65 Type 2 diabetes mellitus with hyperglycemia (principal); E78.00 Pure hypercholesterolemia, unspecified; F31.9 Bipolar disorder, unspecified; F90.9 Attention-deficit hyperactivity disorder, unspecified type; F32.9 Major depressive disorder, single episode, unspecified; Z79.01 Long term (current) use of anticoagulants; Z79.4 Long term (current) use of insulin; Z88.0 Allergy status to penicillin; Z88.1 Allergy status to other antibiotic agents; Z88.5 Allergy status to narcotic agent; Z88.8 Allergy status to other drugs, medicaments and biological substances
CPT/HCPCS: 85025; 80048; 36415; 82962 ×2; 96372; 99284; J7030 ×2

== ENCOUNTER 2018-11-03 16:32 | Observation (INO) | payer OTHER ==
--- OUTSIDE RECORDS SUMMARY | 2018-11-03 16:36 | XMS REPORT ---
:1965 [facility] Address [address] [place] [address] [address] [place] [address] Care Team Providers Name Role Phone Unavailable Unavailable Unavailable Problems This patient has no known problems. Allergies, Adverse Reactions, Alerts This patient has no known allergies or adverse reactions. Medications This patient has no known medications.
--- OUTSIDE RECORDS SUMMARY | 2018-11-03 16:36 | XMS REPORT | Continuity of Care Document ---
:1965 Author Organization Interface Problems Problem Status Onset Classification Date Comments Source Date Reported DX: Active 05/29/20 [facility] R13.10=DYSPHAGIA, 18 UNSPECIFIED, R10.1 UNK Active 04/17/20 [facility] 18 GERD WO Active 04/17/20 [facility] ESOPHAGITIS 18 K21.9, R13.10, Active 04/04/20 [facility] K44.9 18 Gout Active 08/23/19 Finding 09/03/2017 [...] Active Finding 09/03/[address] [facility] St. pulmonary embolus [facility] [place] [...] DAILY AT Active [facility] St. SUPPER 017 [facility] [place] [...] DX 05/30 - Swallow w Swallow - [facility] Esophagus Esophagus Function Function DX DX COMPARISON: None Read by: Juloi Rosario MD Dictated Date/time: 05/30/18 15:49 Electronically [...] from the stomach into proximal small bowel. [id number] Chest 2 Chest 2 Patient Name: MANJINDER DODSON 04/19 - views DX views DX /2017 - [facility] : 1965; Age: 52 years Female MR: [id number] Read by: Valery Saleh MD Dictated Date/time: [...] Recommend CT chest for further characterization. SL: [id number] Barium Barium Fluoro Time and Dose: 6.1min/369.66mGy [...] is visualized at the GE junction. SL: [id number] Laboratory Bedside 222 mg/dl 65 - 120 09/[address] [facility] St. Studies Glucose /2017 [facility] [place] [facility] Prothrombin 12.3 9.5 - 12.5 08/[address] [facility] St. Studies Time SECONDS /2017 [facility] [place] [facility] INR 1.04 08/[address] [facility] St. Studies Internationa /2017 [facility] l Normalized [place] Ratio Laboratory Activated 29.2 24.3 - 08/[address] [facility] St. Studies Partial SECONDS 36.9 [facility] Thromboplast [place] Time Laboratory White Blood 8.1 K/uL 4.3 - 10.9 08/[address] [facility] St. Studies Count /2017 [facility] [place] [facility] Red Cell 14.1 % 12.1 - 08/[address] [facility] St. Studies Distribution 15.2 [facility] Width [place] Laboratory Red Blood 3.88 M/uL 3.86 - 08/[address] [facility] St. Studies Count 4.86 /2017 [facility] [place] [facility] Platelet 243 K/uL 152 - 406 08/[address] [facility] St. Studies Count /2017 [facility] [place] [facility] Neutrophils 58.7 % 41.7 - [address] [facility] St. Studies % 73.7 /2017 [facility] [place] [facility] Monocytes % 4.7 % 3.3 - 12.3 08/[address] [facility] St. Studies /2017 [facility] [place] [facility] Mean 9.0 fL 7.6 - 11.3 08/[address] [facility] St. Studies Platelet /2017 [facility] Volume [place] Laboratory Mean 84.9 fL 80 - 100 08/[address] [facility] St. Studies Corpuscular /2017 [facility] Volume [place] Laboratory Mean 32.8 g/dL 32.0 - 08/30 [facility]. Studies Corpuscular 36.0 /2017 [facility] Hemoglobin [place] Concent Laboratory Mean 27.9 pg 27.0 - 08/30 [facility]. Studies Corpuscular 35.0 [facility] Hemoglobin [place] Laboratory Lymphocytes 34.2 % 15.3 - [address] [facility] St. Studies % 44.8 /2017 [facility] [place] [facility] Hemoglobin 10.8 g/dL 12.0 - 08/[address] [facility] St. Studies 15.0 /2017 [facility] [place] [facility] Hematocrit 32.9 % 36.0 - 08/[address] [facility] St. Studies 45.0 /2017 [facility] [place] [facility] Eosinophils 1.9 % 0 - 4.4 08/[address] [facility] St. Studies % /2017 [facility] [place] [facility] Basophils % 0.5 % 0 - 1.3 08/[address] [facility] St. Studies [facility] [place] [facility] Absolute 4.8 K/uL 1.8 - 8.0 08/[address] [facility] St. Studies Neutrophil /2017 [facility] [place] [facility] Absolute 0.4 K/uL 0.1 - 1.3 08/30 [facility]. Studies Monocytes /2017 [facility] (CBC) [place] Laboratory Absolute 2.8 K/uL 0.7 - 4.9 08/30 [facility]. Studies Lymphocytes /2017 [facility] (CBC) [place] Laboratory Absolute 0.2 K/uL 0 - 0.5 08/30 [facility]. Studies Eosinophils /2017 [facility] (CBC) [place] [facility] Absolute 0.0 K/uL 0 - 0.5 08/[address] [facility] St. Studies Basophils /2017 [facility] (CBC) [place] Laboratory Urine pH 6.0 08/[address] [facility] St. Studies /2018 [facility] [place] [facility] Urine 1.0 mg/dL 08/[address] [facility] St. Studies Urobilinogen /2017 [facility] [place] [facility] Urine Total Urine 08/30 St. Studies Protein Total /2017 [facility] Protein [place] Laboratory Urine 1.025 08/[address] [facility] St. Studies Specific /2017 [facility] [place] Laboratory Urine Urine 08/30 St. Studies [...] Blood Urine 08/[address] [facility] St. Studies Blood /2017 [facility] [place] [facility] Urine Urine 08/30 [facility]. Studies Bilirubin Bilirubin /2017 [facility] [place] [facility] Urine Urine 08/30 [facility]. Studies Appearance Appearance /2017 [facility] [place] [facility] Uric Acid 7.1 mg/dL 2.6 - 8.0 08/[address] [facility] St. Studies /2017 [facility] [place] [facility] Estimat 61 mL/min [address] [facility] St. Studies Glomerular /2017 [facility] Filtration [place] Rate Laboratory Creatinine 0.97 mg/dL 0.44 - [address] [facility] St. Studies 1.00 [facility] [place] Laboratory Blood Urea 23 mg/dL 6 - 20 08/[address] [facility] St. Studies Nitrogen /2017 [facility] [place] [facility] Sodium Level 133 mEq/L 135 - 145 08/[address] [facility] St. Studies /2018 [facility] [place] [facility] Potassium 3.6 mEq/L 3.6 - 5.0 08/[address] [facility] St. Studies Level /2017 [facility] [place] [facility] Glucose 288 mg/dL 65 - 120 08/[address] [facility] St. Studies Level /2018 [facility] [place] [facility] Chloride 99 mEq/L 101 - 111 08/[address] [facility] St. Studies Level /2018 [facility] [place] [facility] Carbon 25 mEq/L 21 - 31 08/[address] [facility] St. Studies Dioxide /2017 [facility] Level [place] Laboratory Calcium 9.0 mg/dL 8.5 - 10.5 08/[address] [facility] St. Studies Level /2017 [facility] [place] Microbiolo Staph Aureus Staph 07/[address] [facility] St. gy Studies Aureus [facility] [place] Laboratory Sedimentatio 32 mm/HR 0 - 30 07/[address] [facility] St. Studies n Rate [facility] [place] [facility] C-Reactive 36.4 mg/L 07/[address] [facility] St. Studies Protein [facility] [place] [facility] Hemoglobin 11.1 % 4 - 6.0 07/[address] [facility] St. Studies A1c [facility] [place] Vital Signs Vital Sign Value Date Comments Source Temperature Oral (F) 98.6 F 09/03/[address] [facility] [place] Heart Rate 62 09/03/[address] [facility] [place] Respitory Rate 16 09/03/[address] [facility] [place] Systolic (mm Hg) 128 09/03/[address] [facility] [place] Diastolic (mm Hg) 69 09/03/[address] [facility] [place] Height 71 08/30/[address] [facility] [place] - [place] Weight 218 08/30/[address] [facility] [place] Encounters Location Location Encounter Encounter Reason Attending ADM DC Status Source Details Type Number For Provider Date Date Visit [facility] [id number] 06/18 06/[address] [facility] Rec[facility]ring [facility] [place] [facility] St. Departed [id number] 06/19 06/[address] [facility] Surgical 79 [facility] [place] [facility] [place] [facility] St. Discharged [id number] 07/09 07/[address] [facility] [place] [facility] St. Departed [id number] 07/18 07/[address] [facility] Emergency 97 [facility] [place] [facility] St. Registered [id number] 07/[address] [facility]aman[facility] Referred [facility] [place] [facility] St. Discharged [id number] 08/20 08/[address] [facility] Rec[facility]ring [facility] [place] [facility] St. Discharged [id number] 08/23 08/[address] [facility] St[facility] Inpatient 66 [facility] [place] [facility] St. Registered [id number] 08/[address] [facility] [address] Recurring [facility] [place] [facility] St. Departed [id number] 08/27 08/[address] [facility]kinson[facility] Emergency 38 [facility] [place] [facility] St. Departed [id number] 09/03 09/[address] [facility] St[facility] Surgical 97 [place] [facility] [place] [facility] [place] Procedures Procedure Code Date Perfomer Comments Source Foot Left 3 View [id number] 08/27/[address] [facility] St. [place] - [place] Anaerobic Blood [id number] 08/23/[address] [facility] St[facility] [place]pa - Culture [place] Aerobic Blood [id number] 08/23/[address] [facility] StMyesha [place] - Culture [place] Anaerobic Blood [id number] 07/18/[address] [facility] StMy[facility]ha [place] - Culture [place] Aerobic Blood [id number] 07/18/[address] [facility] St[facility] [place] - Culture [place] Gram Stain [id number] 07/18/[address] [facility] [place] - [place] Culture & [id number] 07/18/[address] [facility] St[facility] [place] - Sensitivity [place] Foot Left 3 View [id number] 07/18/[address] [facility] St. [place] - [place] DETACHMENT AT [id number] 06/19/[address] [facility] St. [place] - LEFT 2ND TOE, [place] COMPLETE, OPEN APPROACH AMPUTATION OF TOE [id number] 06/19/[address] [facility] St. [place] - [place] Gram Stain [id number] 06/18/[address] [facility] St. [place] - [place] Anaerobic Culture [id number] 06/18/[address] [facility] St. Huffman - Román
[2018-11-03 17:01] LABS: Absolute Lymphocytes (CBC) 2.2 K/uL (0.7-4.9); Absolute Monocytes 0.5 K/uL (0.1-1.3); Absolute Neutrophil 4.6 K/uL (1.8-8.0); Basophils % 0.5 % (0-1.3); Eosinophils % 1.6 % (0-4.4); Hematocrit 36.3 % (36.0-45.0); Lymphocytes % 29.5 % (15.3-44.8); MPV 9.2 fL (7.6-11.3); Monocytes % 7.2 % (3.3-12.3); Protime INR 0.97
[2018-11-03 17:25] LABS: ALT/SGPT 40 U/L (12-78); AST/SGOT 24 U/L (15-37); Albumin 3.4 g/dL (3.4-5.0); Alkaline Phosphatase 93 U/L (45-117); BUN Blood Urea Nitrogen 15 mg/dL (7-18); Bicarbonate 30 mmol/L (21-32); Bilirubin Direct < 0.1 mg/dL (0-0.2); Bilirubin Total 0.3 mg/dL (0.2-1.0); Glucose Level 221 mg/dL (74-106); Magnesium 1.8 mg/dL (1.8-2.4); NT PRO-BNP 41 pg/mL (<125); Protein, Total 6.9 g/dL (6.4-8.2); Sodium Level 139 mmol/L (136-145); Troponin (Emerg Dept Use Only) < 0.02 ng/mL (0.0-0.045)
--- NOTE | 2018-11-03 17:44 | RAD REPORT ---
EXAM DESCRIPTION: RAD - Chest Single View - 11/03/2018 5:29 pm CLINICAL HISTORY: Chest pain COMPARISON: July 26 TECHNIQUE: AP portable chest image was obtained 1659 hours . FINDINGS: Lungs are clear. Heart and vasculature are normal. No measurable pleural effusion and no p neumothorax. No acute bony abnormality seen. No acute aortic findings suspected. IMPRESSION: No acute cardiopulmonary process. No significant change from comparison.
[2018-11-03] MEDS ORDERED: ASPIRIN 81 MG CHEWABLE TABLET ONE (17:46)
[2018-11-03] MEDS ORDERED: ENOXAPARIN 100 MG/ML SYR SQ ONE (17:47)
[2018-11-03] MEDS ORDERED: FAMOTIDINE 20 MG/2 ML VIAL IV ONE (17:47)
--- NOTE | 2018-11-03 17:47 | EDPHYS ---
Physician Documentation [facility] Name: Renetta Ramsay Age: 52 yrs Sex: Female : 1965 Arrival Date: 11/03/2018 Time: 16:34 Bed 7 Private MD: ED Physician Krunal Flores HPI: 11/03 17:41 This 52 yrs old Female presents to ER via EMS with complaints of Chest Pain. [facility] 17:41 The patient or guardian reports chest pain that is located primarily in the anterior bia chest wall. Onset: just prior to arrival. The pain does not radiate. Associated signs and symptoms: The patient has no apparent associated signs or symptoms. The chest pain is described as a pressure. Duration: The patient or guardian reports a single episode, that is still ongoing, but improving. Modifying factors: The symptoms are alleviated by nothing. the symptoms are aggravated by nothing. Severity of pain: At its worst the pain was mild moderate. The patient has experienced similar episodes in the past, several times. Historical: - Allergies: 16:38 Amoxicillin; la1 16:38 ARIPIPRAZOLE; la1 16:38 Demerol; la1 16:38 PENICILLINS; la1 16:38 pentazocine lactate; la1 16:38 Talwin; la1 - Home Meds: 17:23 carvedilol 12.5 mg Oral tab 1 tab 2 times per day [Active]; divalproex 500 mg Oral TbEC ss 3 tabs nightly [Active]; Effexor XR 225 mg Oral cp24 1 cap once daily [Active]; Eliquis 5 mg Oral tab 1 tab 2 times per day [Active]; fenofibrate 145 mg Oral 1 cap nightly [Active]; furosemide 40 mg Oral tab 1 tab once daily [Active]; Humalog 100 unit/mL Sub-Q crtg 30 unit before meals [Active]; Levemir 100 unit/mL subcutaneous soln 100 unit daily [Active]; Lyrica 150 mg Oral 2 times per day [Active]; metformin 500 mg Oral Tb24 1 tab 2 times per day [Active]; olanzapine 10 mg Oral tab 1 tab IN AM [Active]; olanzapine 5 mg Oral tab 1 tab nightly [Active]; pantoprazole 40 mg Oral TbEC 1 tab 2 times per day [Active]; pioglitazone 30 mg Oral tab 1 tab once daily [Active]; Wellbutrin XL 150 mg Oral Tb24 1 tab once daily [Active]; Xanax 1 mg Oral tab 1 tab twice a day [Active]; - PMHx: 16:38 ADD/ADHD; Bipolar disorder; Chronic pain; Depression; Diabetes - NIDDM; High la1 Cholesterol; Hypertension; osteomyelitis; Pancreatitis; - Immunization history:: Adult Immunizations up to date. - Social history:: Smoking status: unknown. - Ebola Screening: : No symptoms or risks identified at this time. - Family history:: not pertinent. ROS: 17:41 Constitutional: Negative for fever, chills, and weight loss, Eyes: Negative for injury, bia pain, redness, and discharge, ENT: Negative for injury, pain, and discharge, Neck: Negative for injury, pain, and swelling, Respiratory: Negative for shortness of breath, cough, wheezing, and pleuritic chest pain, Abdomen/GI: Negative for abdominal pain, nausea, vomiting, diarrhea, and constipation, Back: Negative for injury and pain, : Negative for injury, bleeding, discharge, and swelling, MS/Extremity: Negative for injury and deformity, Skin: Negative for injury, rash, and discoloration, Neuro: Negative for headache, weakness, numbness, tingling, and seizure, Psych: Negative for depression, anxiety, suicide ideation, homicidal ideation, and hallucinations, Allergy/Immunology: Negative for hives, rash, and allergies, Endocrine: Negative for neck swelling, polydipsia, polyuria, polyphagia, and marked weight changes, Hematologic/Lymphatic: Negative for swollen nodes, abnormal bleeding, and unusual bruising. 17:41 Cardiovascular: Positive for chest pain. Exam: 17:41 Constitutional: This is a well developed, well nourished patient who is awake, alert, bia and in no acute distress. Head/Face: Normocephalic, atraumatic. Eyes: Pupils equal round and reactive to light, extra-ocular motions intact. Lids and lashes normal. Conjunctiva and sclera are non-icteric and not injected. Cornea within normal limits. Periorbital areas with no swelling, redness, or edema. ENT: Nares patent. No nasal discharge, no septal abnormalities noted. Tympanic membranes are normal and external auditory canals are clear. Oropharynx with no redness, swelling, or masses, exudates, or evidence of obstruction, uvula midline. Mucous membranes moist. Neck: Trachea midline, no thyromegaly or masses palpated, and no cervical lymphadenopathy. Supple, full range of motion without nuchal rigidity, or vertebral point tenderness. No Meningismus. Chest/axilla: Normal chest wall appearance and motion. Nontender with no deformity. No lesions are appreciated. Cardiovascular: Regular rate and rhythm with a normal S1 and S2. No gallops, murmurs, or rubs. Normal PMI, no JVD. No pulse deficits. Respiratory: Lungs have equal breath sounds bilaterally, clear to auscultation and percussion. No rales, rhonchi or wheezes noted. No increased work of breathing, no retractions or nasal flaring. Abdomen/GI: Soft, non-tender, with normal bowel sounds. No distension or tympany. No guarding or rebound. No evidence of tenderness throughout. Back: No spinal tenderness. No costovertebral tenderness. Full range of motion. Skin: Warm, dry with normal turgor. Normal color with no rashes, no lesions, and no evidence of cellulitis. MS/ Extremity: Pulses equal, no cyanosis. Neurovascular intact. Full, normal range of motion. Neuro: Awake and alert, GCS 15, oriented to person, place, time, and situation. Cranial nerves II-XII grossly intact. Motor strength 5/5 in all extremities. Sensory grossly intact. Cerebellar exam normal. Normal gait. Psych: Awake, alert, with orientation to person, place and time. Behavior, mood, and affect are within normal limits. 17:41 Musculoskeletal/extremity: DVT Exam: No signs of deep vein thrombosis. no pain, no swelling, no tenderness, negative Homans' sign noted on exam, no appreciated bluish discoloration, no erythema, no increased warmth. Vital Signs: 16:38 BP 111 / 56; Pulse 67; Resp 18; Temp 97.4; Pulse Ox 93% on R/A; Weight 118.39 kg; la1 Height 5 ft. 11 in. (180.34 cm); Pain 10/10; 19:15 BP 100 / 70; Pulse 84; Resp 16; Temp 97.2; Pulse Ox 90% on R/A; la1 19:15 Pulse Ox 95% on 2 lpm NC; la1 20:13 BP 119 / 84; Pulse 84; Resp 16; Pulse Ox 96% on 2 lpm NC; la1 16:38 Body Mass Index 36.40 (118.39 kg, 180.34 cm) la1 MDM: 16:39 Patient medically screened. [facility] 17:43 Data reviewed: vital signs, nurses notes, lab test result(s), EKG, radiologic studies, bia CT scan. 11/03 16:45 Order name: Basic Metabolic Panel; Complete Time: 18:43 bp 11/03 16:45 Order name: CBC with Diff; Complete Time: 17:35 bp 11/03 16:45 Order name: LFT's; Complete Time: 18:43 bp 11/03 16:45 Order name: Magnesium; Complete Time: 18:43 bp 11/03 16:45 Order name: NT PRO-BNP; Complete Time: 18:43 bp 11/03 16:45 Order name: PT-INR; Complete Time: 17:35 bp 11/03 16:45 Order name: Troponin (emerg Dept Use Only); Complete Time: 18:43 bp 11/03 16:45 Order name: XRAY Chest (1 view); Complete Time: 18:43 bp 11/03 16:48 Order name: CT Chest For PE Angio [facility] 11/03 18:07 Order name: Valproic Acid (Depakene) Level; Complete Time: 18:43 EDMS 11/03 18:07 Order name: Thyroid Stimulating Hormone; Complete Time: 18:43 EDMS 11/03 18:39 Order name: T4 Free; Complete Time: 18:43 EDMS 11/03 16:45 Order name: EKG; Complete Time: 16:46 bp 11/03 16:45 Order name: Cardiac monitoring; Complete Time: 16:47 bp 11/03 16:45 Order name: EKG - Nurse/Tech; Complete Time: 16:46 bp 11/03 16:45 Order name: IV Saline Lock; Complete Time: 16:47 bp 11/03 16:45 Order name: Labs collected and sent; Complete Time: 16:47 bp 11/03 16:45 Order name: O2 Per Protocol; Complete Time: 16:47 bp 11/03 16:45 Order name: O2 Sat Monitoring; Complete Time: 16:47 bp 11/03 17:23 Order name: US Extremity Venous W Compression Bayron [facility] 11/03 18:43 Order name: CT; Complete Time: 18:43 EDMS Administered Medications: 17:42 Drug: Lovenox 1 mg/kg Route: Sub-Q; Site: left lower abdomen; la1 18:51 Follow up: Response: No adverse reaction la1 17:42 Drug: Pepcid 20 mg Route: IVP; Site: left antecubital; la1 18:51 Follow up: Response: No adverse reaction la1 17:43 Drug: Aspirin Chewable Tablet 162 mg Route: PO; la1 18:51 Follow up: Response: No adverse reaction la1 19:16 Drug: morphine 4 mg Route: IVP; Site: left antecubital; la1 19:16 Drug: Zofran 4 mg Route: IVP; Site: left antecubital; la1 Disposition: 11/03/18 17:46 Hospitalization ordered by Vlad Wharton for Observation. Preliminary diagnosis are Chest pain, unspecified, Pleurisy, Type 2 diabetes mellitus, Bipolar disorder. - Bed requested for Telemetry/MedSurg (observation). - Status is Observation. la1 - Condition is Fair. - Problem is new. - Symptoms have improved. UTI on Admission? No Signatures: Dispatcher [employer] EDME Joanne Larsen RN RN dw Anderson, Corey, MD MD cha Smirch, Shelby, RN RN ss Attema, Lee, RN RN laBobby Kilgore RN RN bp Corrections: (The following items were deleted from the chart) 18:06 16:49 THYROID STIMULAT HORMONE+C.LAB.BRZ ordered. EDME EDMS 18:06 17:36 VALPROIC ACID (DEPAKOTE)+C.LAB.BRZ ordered. EDME EDMS 18:40 17:46 Hospitalization Ordered by Vlad Wharton MD for Observation. Preliminary diagnosis dw is Chest pain, unspecified; Pleurisy; Type 2 diabetes mellitus; Bipolar disorder. Bed requested for Telemetry/MedSurg (observation). Status is Observation. Condition is Fair. Problem is new. Symptoms have improved. UTI on Admission? No. bia 21:01 18:40 11/03/2018 17:46 Hospitalization Ordered by Vlad Wharton MD for Observation. la1 Preliminary diagnosis is Chest pain, unspecified; Pleurisy; Type 2 diabetes mellitus; Bipolar disorder. Bed requested for Telemetry/MedSurg (observation). Status is Observation. Condition is Fair. Problem is new. Symptoms have improved. UTI on Admission? No. dw
--- NOTE | 2018-11-03 17:47 | ER ---
Nurse's Notes [facility] Name: Renetta Ramsay Age: 52 yrs Sex: Female : 1965 Arrival Date: 11/03/2018 Time: 16:34 Bed 7 Private MD: Diagnosis: Chest pain, unspecified;Pleurisy;Type 2 diabetes mellitus;Bipolar disorder Presentation: 11/03 16:34 Presenting complaint: EMS states: Pt reports onset of chest pain 30 minutes ago, pain la1 made worse with deep breath. Has had episode of SVT in the past as well as DVT. Transition of care: patient was not received from another setting of care. Onset of symptoms was November 03, 2018. Risk Assessment: Do you want to hurt yourself or someone else? Patient reports no desire to harm self or others. Initial Sepsis Screen: Does the patient meet any 2 criteria? No. Patient's initial sepsis screen is negative. Does the patient have a suspected source of infection? No. Patient's initial sepsis screen is negative. Care prior to arrival: None. 16:34 Method Of Arrival: EMS: [facility] la1 16:34 Acuity: OLY 3 la1 Historical: - Allergies: 16:38 Amoxicillin; la1 16:38 ARIPIPRAZOLE; la1 16:38 Demerol; la1 16:38 PENICILLINS; la1 16:38 pentazocine lactate; la1 16:38 Talwin; la1 - Home Meds: 17:23 carvedilol 12.5 mg Oral tab 1 tab 2 times per day [Active]; divalproex 500 mg Oral TbEC ss 3 tabs nightly [Active]; Effexor XR 225 mg Oral cp24 1 cap once daily [Active]; Eliquis 5 mg Oral tab 1 tab 2 times per day [Active]; fenofibrate 145 mg Oral 1 cap nightly [Active]; furosemide 40 mg Oral tab 1 tab once daily [Active]; Humalog 100 unit/mL Sub-Q crtg 30 unit before meals [Active]; Levemir 100 unit/mL subcutaneous soln 100 unit daily [Active]; Lyrica 150 mg Oral 2 times per day [Active]; metformin 500 mg Oral Tb24 1 tab 2 times per day [Active]; olanzapine 10 mg Oral tab 1 tab IN AM [Active]; olanzapine 5 mg Oral tab 1 tab nightly [Active]; pantoprazole 40 mg Oral TbEC 1 tab 2 times per day [Active]; pioglitazone 30 mg Oral tab 1 tab once daily [Active]; Wellbutrin XL 150 mg Oral Tb24 1 tab once daily [Active]; Xanax 1 mg Oral tab 1 tab twice a day [Active]; - PMHx: 16:38 ADD/ADHD; Bipolar disorder; Chronic pain; Depression; Diabetes - NIDDM; High la1 Cholesterol; Hypertension; osteomyelitis; Pancreatitis; - Immunization history:: Adult Immunizations up to date. - Social history:: Smoking status: unknown. - Ebola Screening: : No symptoms or risks identified at this time. - Family history:: not pertinent. Screenin:45 Abuse screen: Denies threats or abuse. Nutritional screening: No deficits noted. la1 Tuberculosis screening: No symptoms or risk factors identified. Fall Risk None identified. Assessment: 16:44 General: Appears in no apparent distress. Behavior is calm, cooperative. Pain: la1 Complains of pain in chest Pain radiates to abdomen Pain currently is 10 out of 10 on a pain scale. Quality of pain is described as sharp, Pain began 30 min ago. Neuro: Level of Consciousness is awake, alert, obeys commands, Oriented to person, place, time, situation. Cardiovascular: Heart tones S1 S2 present Capillary refill < 3 seconds Patient's skin is warm and dry. Respiratory: Reports Airway is patent Trachea midline Respiratory effort is even, unlabored, Respiratory pattern is regular, symmetrical, Breath sounds are clear bilaterally. GI: No signs and/or symptoms were reported involving the gastrointestinal system. : No signs and/or symptoms were reported regarding the genitourinary system. 18:52 Reassessment: Patient appears in no apparent distress at this time. No changes from la1 previously documented assessment. Patient and/or family updated on plan of care and expected duration. Pain level reassessed. Patient is alert, oriented x 3, equal unlabored respirations, skin warm/dry/pink. Vital Signs: 16:38 BP 111 / 56; Pulse 67; Resp 18; Temp 97.4; Pulse Ox 93% on R/A; Weight 118.39 kg; la1 Height 5 ft. 11 in. (180.34 cm); Pain 10/10; 19:15 BP 100 / 70; Pulse 84; Resp 16; Temp 97.2; Pulse Ox 90% on R/A; la1 19:15 Pulse Ox 95% on 2 lpm NC; la1 20:13 BP 119 / 84; Pulse 84; Resp 16; Pulse Ox 96% on 2 lpm NC; la1 16:38 Body Mass Index 36.40 (118.39 kg, 180.34 cm) la1 ED Course: 16:34 Patient arrived in ED. la1 16:36 Triage completed. la1 16:38 Krunal Flores MD is Attending Physician. bia 16:38 Arm band placed on right wrist. la1 16:43 Bobby Mo, MARK is Primary Nurse. bp 16:45 Call light in reach. Side rails up X 1. cafeteria monitor on. Pulse ox on. NIBP on. la1 16:45 Patient maintains SpO2 saturation greater than 95% on room air. la1 16:45 Inserted saline lock: 22 gauge in left antecubital area, using aseptic technique. Blood bp collected. 17:14 Radiology exam delayed due to lab results not completed at this time. (BUN/Creatinine). bq 17:29 XRAY Chest (1 view) In Process Unspecified. EDMS 17:44 Vlad Wharton MD is Hospitalizing Provider. bia 18:00 Radiology exam delayed due to PT HAVING U/S THIS TIME. mw3 18:20 US Extremity Venous W Compression Bayron In Process Unspecified. EDMS 18:21 Ultrasound completed. Patient tolerated well. sg3 21:01 No provider procedures requiring assistance completed. Patient admitted, IV remains in la1 place. Administered Medications: 17:42 Drug: Lovenox 1 mg/kg Route: Sub-Q; Site: left lower abdomen; la1 18:51 Follow up: Response: No adverse reaction la1 17:42 Drug: Pepcid 20 mg Route: IVP; Site: left antecubital; la1 18:51 Follow up: Response: No adverse reaction la1 17:43 Drug: Aspirin Chewable Tablet 162 mg Route: PO; la1 18:51 Follow up: Response: No adverse reaction la1 19:16 Drug: morphine 4 mg Route: IVP; Site: left antecubital; la1 19:16 Drug: Zofran 4 mg Route: IVP; Site: left antecubital; la1 Outcome: 17:46 Decision to Hospitalize by Provider. bia 21:01 Patient left the ED. la1 21: Admitted to Tele la1 : Condition: stable 21: Instructed on the need for admit. Signatures: Dispatcher [employer] EDKrunal Ford MD MD cha Quilty, Betty bq Smirch, Shelby, RN RN ss Attema, Lee, RN RN la1 Peltier, Brian, RN RN bp Godinez, Sarah [facility] Addis Weinberg 3
--- NOTE | 2018-11-03 18:42 | RAD REPORT ---
EXAM DESCRIPTION: CT - Chest For Pe Angio - 11/03/2018 6:30 pm CLINICAL HISTORY: Chest pain COMPARISON: Chest films same date, CT chest November 2017, CT chest January 2016 TECHNIQUE: Dynamically enhanced 3 mm thick images of the chest were obtained during administration o f approximately 150mL Isovue 370 IV contrast. Coronal and oblique MIP reconstruction images were gene rated and reviewed. Exam utilizes a protocol to evaluate the pulmonary arterial tree. All CT scans are performed using dose optimization technique as appropriate and may include automated exposure control or mA/KV adjustment according to patient size. FINDINGS: No pulmonary emboli are identified. The aorta as imaged shows no acute or suspicious finding. No pericardial thickening or effusion. Card iac size is upper normal. No acute infiltrate or new mass lesion in the lung parenchyma. In the left upper lobe at the aortic a rch level there is a 2.5 x 1.9 centimeter oval shaped mass. This is centrally cystic or necrotic with a peripheral rim that is partially calcified. No clear changes occurred since January 2016. Nearly 3 ye ar stability would very strongly favor a benign process. No pleural effusion or pleural thickening. No mediastinal or hilar suspicious masses. No chest wall masses or abnormal axillary lymphadenopathy. IMPRESSION: No pulmonary emboli identified. Partially calcified mass left upper lung field stable back to January 2016. This nearly 3 year stability would very strongly favor a benign process.
[2018-11-03] MEDS ORDERED: ONDANSETRON 4 MG/2 ML VIAL ONE (19:09)
[2018-11-03] MEDS ORDERED: MORPHINE 4 MG/ML SYR ONE (19:09)
--- NOTE | 2018-11-03 19:26 | RAD REPORT ---
EXAM DESCRIPTION: US - Extrem Venous W Compress Bayron - 11/03/2018 6:41 pm CLINICAL HISTORY: Leg pain and swelling COMPARISON: None. TECHNIQUE: Real-time sonographic evaluation of the bilateral lower extremity common femoral, superfi cial femoral, popliteal and posterior tibial veins was performed. FINDINGS: Normal compressibility, flow augmentation, phasic flow and spontaneous flow are identified in the left and right lower extremity common femoral, superficial femoral, popliteal and posterior t ibial veins. No intraluminal filling defects seen. IMPRESSION: No DVT in either lower extremity.
[2018-11-03 21:13] VITALS: BMI 43.4
[2018-11-03] MEDS: INSULIN -REGULAR HUMAN 50 UNIT/0.5 ML ML SQ SCH (22:21)
[2018-11-03] MEDS: NA CHLORIDE 0.9% 1,000 ML IV SCH (22:24)
[2018-11-04] MEDS ORDERED: MORPHINE 4 MG/ML SYR IV PRN (00:31)
[2018-11-04] MEDS ORDERED: HOME MED 1 EA UNK (Acetaminophen With Codeine [Tylenol With Codeine #4 Tablet] 1 EACH) PO PRN (01:07)
--- NOTE | 2018-11-04 06:00 | P.HP ---
Certification for Inpatient Patient admitted to: Observation With expected LOS: <2 Midnights Patient will require the following post-hospital care: None Practitioner: I am a practitioner with admitting privileges, knowledge of patient current condition, hospital course, and medical plan of care. Services: Services provided to patient in accordance with Admission requirements found in Title 42 Section 412.3 of the Code of Federal Regulations Patient History Date of Service: 11/03/18 Reason for admission: CHEST PAIN RULE OUT ACUTE CORONARY SYNDROME History of Present Illness: Patient is a 52-year-old female has multiple medical problems comes into the hospital with chest discomfort. Patient had her anticoagulation help for a GI procedures. She started having chest pain and was concerned she had a pulmonary embolism. We did Dopplers in the ER and they are negative for a DVT or PE. We will go ahead and admit the patient to the hospital to be ruled out for acute coronary syndrome. Patient with numerous risk factors. Will start on beta-ame therapy along with anti-platelet therapy and statin therapy. We will proceed from there and see how patient does. Allergies amoxicillin Allergy (Verified 09/03/17 11:26) Unknown aripiprazole [From Abilify] Allergy (Verified 09/03/17 11:26) Unknown meperidine [From Demerol] Allergy (Verified 09/03/17 11:26) Unknown Penicillins Allergy (Verified 09/03/17 11:26) Unknown pentazocine lactate [From Talwin] Allergy (Verified 09/03/17 11:26) Rash Home Medications: Acetaminophen with Codeine [Tylenol with Codeine #4 Tablet] 1 each PO Q6HP PRN 06/09/18 Alprazolam [Xanax] 1 mg PO BID 06/09/18 Bupropion *Xl* [Wellbutrin XL*] 150 mg PO DAILY 06/09/18 Divalproex Sodium [Depakote] 1,500 mg PO BEDTIME 06/09/18 Insulin Degludec [Tresiba Flextouch U-100] 80 unit SQ DAILY 06/09/18 Insulin Lispro [Humalog] See Protocol SQ ACHS 06/09/18 Metformin ER [Glucophage ER*] 500 mg PO BID 06/09/18 OLANZapine [Zyprexa*] 10 mg PO BEDTIME 06/09/18 Olanzapine [Zyprexa] 5 mg PO DAILY 06/09/18 Pantoprazole [Protonix Tab*] 40 mg PO BID 06/09/18 Pregabalin [Lyrica] 150 mg PO TID 06/09/18 Venlafaxine HCl [Venlafaxine HCl ER] 150 mg PO DAILY 06/09/18 Apixaban [Eliquis] 5 mg PO BID 07/26/18 Fenofibrate [Tricor*] 145 mg PO DAILY 07/26/18 Pioglitazone HCl 1 tab PO DAILY 07/26/18 Venlafaxine HCl [Venlafaxine HCl ER] 75 mg PO BEDTIME 07/26/18 - Past Medical/Surgical History Has patient received pneumonia vaccine in the past: No Diabetic: Yes -: Diabetes mellitus type 2 -: Hyperlipidemia -: Bipolar disorder, [facility] -: Diverticulosis -: Right DVT with bilateral PE -: Carpal tunnel syndrome -: History of suicidal ideation -: Asthma -: Obstructive sleep apnea -: Tobacco abuse -: Mild sleep apnea -: dvt- right leg -: Appendectomy -: Hysterectomy -: Left knee surgery -: Carpal tunnel repair of the left wrist -: Colon resection due to diverticulitis -: cervical laminectomy infusion, lumbar herniated disc repair -: I/D of the left toe Psychosocial/ Personal History: She has never been . She has 1 son. She does not work. She currently lives with her mother. - Family History Father Medical History: Heart disease Mother Medical History: Heart disease, Hypertension, Diabetes, Cancer Notes: breast cancer - Social History Smoking Status: Former smoker Alcohol use: Yes CD- Drugs: No Caffeine use: Yes Place of Residence: Home Review of Systems 10-point ROS is otherwise unremarkable Physical Examination - Vital Signs Temperature: 97.8 F Blood Pressure: 107/64 Pulse: 73 Respirations: 18 Pulse Ox (%): 98 - Physical Exam General: Alert, In no apparent distress, Oriented x3 HEENT: Atraumatic, Normocephalic, PERRLA, Mucous membr. moist/pink Neck: Supple, JVD not distended, No Thyromegaly, Other Respiratory: Clear to auscultation bilaterally Cardiovascular: Regular rate/rhythm, Normal S1 S2, No murmurs Gastrointestinal: Normal bowel sounds, Soft and benign, Non-distended, No tenderness, No rebound, No guarding Musculoskeletal: No clubbing, No swelling, No erythema, No tenderness, No warmth , Other ( Prior left toe amputation) Integumentary: No rashes, No erythema, No cyanosis Neurological: Normal gait, Normal speech, Normal strength at 5/5 x4 extr, Normal tone, Sensation intact, Normal affect, Other - Studies Laboratory Data (last 24 hrs) 11/03/18 16:46: PT 11.5, INR 0.97 11/03/18 16:46: WBC 7.5, Hgb 12.1, Hct 36.3, Plt Count 177 11/03/18 16:46: Sodium 139, Potassium 4.0, BUN 15, Creatinine 1.11, Glucose 221 H, Magnesium 1.8, Total Bilirubin 0.3, AST 24, ALT 40, Alkaline Phosphatase 93 Assessment & Plan - Problems (Diagnosis) (1) Chest pain due to CAD Current Visit: Yes Status: Acute (2) DM2 (diabetes mellitus, type 2) Current Visit: Yes Status: Acute (3) CAD (coronary artery disease) Current Visit: Yes Status: Acute (4) Abnormal renal function Onset Date: 03/17/16 Current Visit: No Status: Acute - Plan 1. Serial troponins and EKG 2. Cardiology consultation 3. Echocardiogram and inpatient stress test(pending cardiology evaluation) 4. Anti-platelet therapy, anti coagulation, beta-ame, statin, and O2 as needed 5. IV morphine for pain 6. Nitro p.r.n. Discharge Plan: [facility] Plan to discharge in: 24 Hours - Advance Directives Does patient have a Living Will: No Does patient have a Durable POA for Healthcare: No
[2018-11-04 06:25] LABS: Absolute Lymphocytes (CBC) 2.2 K/uL (0.7-4.9); Absolute Monocytes 0.4 K/uL (0.1-1.3); Absolute Neutrophil 3.3 K/uL (1.8-8.0); Basophils % 0.5 % (0-1.3); Eosinophils % 2.7 % (0-4.4); Hematocrit 37.3 % (36.0-45.0); Lymphocytes % 35.4 % (15.3-44.8); MPV 9.4 fL (7.6-11.3); Monocytes % 7.1 % (3.3-12.3); RBC Red Blood Cell Count 4.37 M/uL (3.86-4.86)
[2018-11-04 06:51] LABS: ALT/SGPT 41 U/L (12-78); AST/SGOT 32 U/L (15-37); Albumin 3.2 g/dL (3.4-5.0); Alkaline Phosphatase 92 U/L (45-117); BUN Blood Urea Nitrogen 16 mg/dL (7-18); Bicarbonate 31 mmol/L (21-32); Bilirubin Total 0.3 mg/dL (0.2-1.0); Glucose Level 219 mg/dL (74-106); HDL Cholesterol 32 mg/dL (40-60); LDL Cholesterol, Calculated ND (<130); Potassium 4.1 mmol/L (3.5-5.1); Protein, Total 6.8 g/dL (6.4-8.2); Sodium Level 143 mmol/L (136-145); Troponin I < 0.02 ng/mL (0.0-0.045)
[2018-11-04 07:02] LABS: LDL, Direct 65 mg/dL (100-129)
[2018-11-04 07:11] LABS: Urine Appearance CLEAR; Urine Bilirubin NEGATIVE (NEG); Urine Blood NEGATIVE (NEG); Urine Color YELLOW; Urine Glucose 2+ (NEG); Urine Protein NEGATIVE (NEG); Urine Specific Gravity >=1.030 (1.005-1.030); Urine Urobilinogen 0.2 mg/dL (0.2-1.0); Urine pH 5.5 (5.0-7.0)
[2018-11-04 07:22] LABS: Urine Microscopic Reflex NO UMIC
[2018-11-04] MEDS: INSULIN -REGULAR HUMAN 50 UNIT/0.5 ML ML SQ SCH ×3 (07:30→16:30)
[2018-11-04] MEDS: NA CHLORIDE 0.9% 1,000 ML IV SCH (07:53)
--- NOTE | 2018-11-04 08:11 | EKG ---
Test Date: 2018-11-03 Test Time: 16:47:15 Flare Man: SHAKEEL MEASUREMENT RESULTS: Intervals: Rate: 64 HI: 142 QRSD: 94 QT: 414 QTc: 427 [place]: P: -13 HI: 142 QRS: 83 T: 63 INTERPRETIVE STATEMENTS: Normal sinus rhythm Low voltage QRS Borderline ECG Compared to ECG 07/26/2018 12:29:38 Low QRS voltage now present T-wave abnormality no longer present Electronically Signed On 11-04-18 07:43:54 CDT by Maximino López
[2018-11-04] MEDS ORDERED: PIOGLITAZONE 15 MG TAB PO SCH (09:00)
[2018-11-04] MEDS ORDERED: ALPRAZOLAM 1 MG TABLET PO SCH (09:00)
[2018-11-04] MEDS ORDERED: APIXABAN 5 MG TABLET PO SCH (09:00)
[2018-11-04] MEDS ORDERED: REGADENOSON 0.4 MG/5 ML SYR IV ONE (09:00)
[2018-11-04] MEDS ORDERED: OLANZapine 2.5 MG TAB PO SCH (09:00)
[2018-11-04] MEDS ORDERED: PANTOPRAZOLE 40MG TABLET PO SCH (09:00)
[2018-11-04] MEDS ORDERED: BUPROPION HCL XL 150 MG TAB PO SCH (09:00)
[2018-11-04] MEDS ORDERED: FENOFIBRATE 160 MG TAB PO SCH ×2 (09:00)
[2018-11-04] MEDS ORDERED: VENLAFAXINE HCL XR 75 MG CAP PO SCH ×2 (09:00→21:00)
[2018-11-04] MEDS ORDERED: ENOXAPARIN 100 MG/ML SYR SQ SCH (09:00)
[2018-11-04] MEDS: METFORMIN ER 500 MG TAB PO SCH ×2 (09:58→17:20)
[2018-11-04] MEDS: PREGABALIN 150 MG CAP PO SCH ×2 (09:59→15:07)
[2018-11-04 10:09] VITALS: O2SAT 95
--- NOTE | 2018-11-04 11:12 | RAD REPORT ---
EXAM DESCRIPTION: NM - Rest Stress Cardiac Imaging - 11/04/2018 11:04 am CLINICAL HISTORY: CP Chest pain. COMPARISON: No comparisons TECHNIQUE: The patient was administered approximately 10mCi of Tc 99m Sestamibi prior to resting SPE CT imaging of the heart. The patient was then administered approximately 30 mCi of Tc 99m Sestamibi f ollowing exercise or pharmacologic stress. Multiplanar SPECT images were reviewed. FINDINGS: No stress induced ischemic defect is seen to suggest stress induced ischemia. No fixed def ect is seen to suggest hibernating myocardium or scarred myocardium. The end diastolic volume is 130 ml, the end systolic volume is 58 ml, and the ejection fraction is 56 %. IMPRESSION: No stress induced ischemia.
[2018-11-04 11:28] LABS: Phosphorus 4.8 mg/dL (2.5-4.9)
--- NOTE | 2018-11-04 13:29 | TREADPHA ---
DX: CHEST PAIN Date of Study: 11/04/2018 Ht: 5 7 Wt: 277 lb 12.8 oz Consulting Physician: SURI MEDICATIONS: XANAX, ELIQUIS, WELLBUTRIN XL, TRICOR, DEPAKOTE, NOVOLIN-R. HISTORY: 52 YEAR OLD FEMALE, HISTORY- COMPLAINTS OF CHEST PAIN, ADD/ADHD, BIPOLAR DISORDER, CHRONIC PAIN, DEPRESSION, NON INSULIN DEPENDENT DIABETES MELLITUS, HYPERTENSION, HYPERLIPIDEMIA. PHYSICIAL EXAMINATION: RESTING B.P.: 131/73 RESTING H.R.: 69 RESTING EKG: SINUS RHYTHM, SEPTAL MYOCARDIAL INFARCTION. PROTOCOL: LEXISCAN EXERCISE TIME: 3:30 B.P. AT PEAK STRESS: 137/75 IMPRESSION: LEXISCAN INJECTED, FOLLOWED BY CARDIOLITE PER PROTOCOL, SEE NUCLEAR MEDICINE REPORT. PATIENT REPORTS 7/10 CHRONIC CHEST SORNESS. NO SUPRAVENTRICULAR TACHYCARDIA, NO VENTRICULAR TACHYCARDIA, NO PREMATURE ATRIAL COMPLEXES, NO PREMATURE VENTRICULAR COMPLEXES. NON DIAGNOSTIC ELECTROCARDIOGRAM WITH LEXISCAN STRESS.
--- NOTE | 2018-11-04 14:23 | ECHO ---
HEIGHT: 5 ft 7 in WEIGHT: 277 lb 12.8 oz DATE OF STUDY: 11/04/[address]: Vlad Wharton MD 2-DIMENSIONAL: YES M.MODE: YES DOPPLER: YES COLOR FLOW: YES TDS: YES PORTABLE: NO DEFINITY: NO BUBBLE STUDY: NO DIAGNOSIS: CHEST PAIN CARDIAC HISTORY: CATHERIZATION: NO SURGERY: NO PROSTHETIC VALVE: NO PACEMAKER: NO MEASUREMENTS (cm) DIASTOLIC (NORMALS) SYSTOLIC (NORMALS) IVSd 1.1 (0.6-1.2) LA Diam 3.5 (1.9-4.0) LVEF 66% LVIDd 5.1 (3.5-5.7) LVIDs 3.2 (2.0-3.5) %FS 37% LVPWd 1.1 (0.6-1.2) Ao Diam 2.9 (2.0-3.7) 2 DIMENSIONAL ASSESSMENT: RIGHT ATRIUM: NORMAL LEFT ATRIUM: NORMAL RIGHT VENTRICLE: NORMAL LEFT VENTRICLE: NORMAL TRICUSPID VALVE: NORMAL MITRAL VALVE: NORMAL PULMONIC VALVE: NORMAL AORTIC VALVE: NORMAL PERICARDIAL EFFUSION: NONE AORTIC ROOT: NORMAL LEFT VENTRICULAR WALL MOTION: NORMAL DOPPLER/COLOR FLOW: NORMAL COMMENTS: NORMAL 2D ECHOCARDIOGRAM WITH DOPPLER. TECHNICALLY DIFFICULT STUDY, DIAGNOSTIC ACCURACY MAY BE ADVERESLY AFFECTED. TECHNOLOGIST: Jared BASSETT
[2018-11-04 17:06] VITALS: BP 138/83; TEMP 97.6
--- NOTE | 2018-11-04 18:53 | P.SSS ---
Patient History Date of Service: 11/04/18 Reason for admission: CHEST PAIN RULE OUT ACUTE CORONARY SYNDROME History of Present Illness: Patient is a 52-year-old female has multiple medical problems comes into the hospital with chest discomfort. Patient had her anticoagulation help for a GI procedures. She started having chest pain and was concerned she had a pulmonary embolism. We did Dopplers in the ER and they are negative for a DVT or PE. We will go ahead and admit the patient to the hospital to be ruled out for acute coronary syndrome. Patient with numerous risk factors. Will start on beta-ame therapy along with anti-platelet therapy and statin therapy. We will proceed from there and see how patient does. Allergies amoxicillin Allergy (Verified 09/03/17 11:26) Unknown aripiprazole [From Abilify] Allergy (Verified 09/03/17 11:) Unknown meperidine [From Demerol] Allergy (Verified 09/03/17 11:26) Unknown Penicillins Allergy (Verified 09/03/17 11:26) Unknown pentazocine lactate [From Talwin] Allergy (Verified 09/03/17 11:) Rash Home medications list reviewed: Yes Home Medications: Acetaminophen with Codeine [Tylenol with Codeine #4 Tablet] 1 each PO Q6HP PRN 06/09/18 Alprazolam [Xanax] 1 mg PO BID 06/09/18 Bupropion *Xl* [Wellbutrin XL*] 150 mg PO DAILY 06/09/18 Divalproex Sodium [Depakote] 1,500 mg PO BEDTIME 06/09/18 Insulin Degludec [Tresiba Flextouch U-100] 80 unit SQ DAILY 06/09/18 Insulin Lispro [Humalog] See Protocol SQ ACHS 06/09/18 Metformin ER [Glucophage ER*] 500 mg PO BID 06/09/18 OLANZapine [Zyprexa*] 10 mg PO BEDTIME 06/09/18 Olanzapine [Zyprexa] 5 mg PO DAILY 06/09/18 Pantoprazole [Protonix Tab*] 40 mg PO BID 06/09/18 Pregabalin [Lyrica] 150 mg PO TID 06/09/18 Venlafaxine HCl [Venlafaxine HCl ER] 150 mg PO DAILY 06/09/18 Apixaban [Eliquis] 5 mg PO BID 07/26/18 Fenofibrate [Tricor*] 145 mg PO DAILY 07/26/18 Pioglitazone HCl 1 tab PO DAILY 07/26/18 Venlafaxine HCl [Venlafaxine HCl ER] 75 mg PO BEDTIME 07/26/18 - Past Medical/Surgical History Has patient received pneumonia vaccine in the past: No Diabetic: Yes -: Diabetes mellitus type 2 -: Hyperlipidemia -: Bipolar disorder, [facility] -: Diverticulosis -: Right DVT with bilateral PE -: Carpal tunnel syndrome -: History of suicidal ideation -: Asthma -: Obstructive sleep apnea -: Tobacco abuse -: Mild sleep apnea -: dvt- right leg -: Appendectomy -: Hysterectomy -: Left knee surgery -: Carpal tunnel repair of the left wrist -: Colon resection due to diverticulitis -: cervical laminectomy infusion, lumbar herniated disc repair -: I/D of the left toe Psychosocial/ Personal History: She has never been . She has 1 son. She does not work. She currently lives with her mother. - Family History Father -: Heart disease Mother -: Heart disease, Hypertension, Diabetes, Cancer Notes: breast cancer - Social History Smoking Status: Former smoker Alcohol use: Yes CD- Drugs: No Caffeine use: Yes Place of Residence: Home Review of Systems 10-point ROS is otherwise unremarkable Physical Examination - Vital Signs Temperature: 97.6 F Blood Pressure: 138/83 Pulse: 71 Respirations: 18 Pulse Ox (%): 96 - Physical Exam General: Alert, In no apparent distress, Oriented x3, Obese HEENT: Atraumatic, PERRLA, Mucous membr. moist/pink, EOMI, Sclerae nonicteric Neck: Supple, 2+ carotid pulse no bruit, No LAD, Without JVD or thyroid abnormality Respiratory: Clear to auscultation bilaterally, Normal air movement Cardiovascular: Regular rate/rhythm, Normal S1 S2 Gastrointestinal: Normal bowel sounds, No tenderness Musculoskeletal: No tenderness Integumentary: No rashes Neurological: Normal gait, Normal speech, Normal strength at 5/5 x4 extr, Normal tone, Normal affect Lymphatics: No axilla or inguinal lymphadenopathy Treatment Summary: Patient was admitted for observation. She was restarted on her anticoagulation , beta ame, antiplatelet and statin therapy. Ultrasound Doppler were negative for DVT bilaterally. CTA was negative for pulmonary embolism. An echocardiogram was normal and the stress test was negative for any stress- induced ischemia. Patient otherwise remained hemodynamically stable. Prior to discharge, her chest pain had resolved, she was alert oriented x3 and in no acute distress. She was denying any symptoms prior to discharge. - Disposition Discharge Date: 11/04/18 Disposition: ROUTINE DISCHARGE Condition: GOOD Patient Discharge Instructions: Please follow up with the primary care physician in 1 week. Please return to the emergency room for worsening symptoms Diet: ADA Activity: Ad shikha Time Spent Managing Pts Care (In Minutes): 45
[2018-11-04] MEDS ORDERED: OLANZapine 10 MG TABLET PO SCH (21:00)
[2018-11-04] MEDS ORDERED: DIVALPROEX DR 500MG TAB PO SCH (21:00)
== END 2018-11-04 19:51 | disposition home or self-care (01) ==
LOC: ER 16:32 → ERHOLD 18:13 → 2ND 20:13 → 4TH 20:14
PROVIDERS: ADMIT Family Medicine; ATTEND Hospitalist
DX: R07.9 Chest pain, unspecified (principal); E11.9 Type 2 diabetes mellitus without complications; E78.5 Hyperlipidemia, unspecified; G47.33 Obstructive sleep apnea (adult) (pediatric); Z88.0 Allergy status to penicillin; Z86.718 Personal history of other venous thrombosis and embolism; Z86.711 Personal history of pulmonary embolism; Z87.891 Personal history of nicotine dependence
CPT/HCPCS: 93005; 93017; 93306; 85025 ×2; 80048; 36415; 83721; 83735 ×2; 87205; 84100; 85610; 80061; 82962 ×5; 80076; 80164; 84443; 81003; 84484 ×3; 84439; 80053; 83880; 71275; 71045; 93970; 94760 ×2; 78452; 96375; 96372; 96374; 99285; Q9967; J1650; J2785; J7030; J2405; A9500; G0378 ×4

== ENCOUNTER 2019-03-03 07:24 | Observation (INO) | payer OTHER ==
--- OUTSIDE RECORDS SUMMARY | 2019-03-03 07:29 | XMS REPORT | Continuity of Care Document ---
:1965 Author Organization [email or web address] Care Team Providers Name Role Phone [employer] Unavailable Unavailable Problems Problem Status Onset Classification Date Comments Source Date Reported Epigastric pain 07/19/20 12/18/2018 [facility] 18 DX: Active 05/29/20 [facility] R13.10=DYSPHAGIA, 18 UNSPECIFIED, R10.1 Achalasia of 05/01/20 11/12/[address] [facility] cardia 18 UNK Active 04/17/20 [facility] 18 GERD WO Active 04/17/[address] [facility] ESOPHAGITIS 18 K21.9, R13.10, Active 04/04/[address] [facility] K44.9 18 Gout Active 08/23/19 Finding 09/03/2017 [...] 09/03/[address] [facility] [place] Dysphagia, 12/18/[address] [facility] unspecified Gastro-esophageal 12/18/[address] [facility] reflux disease without esophagitis Anxiety and Active Problem 12/18/[address] [facility] depression COPD (Confirmed) Active Problem 12/18/[address] [facility] DVT (Confirmed) Resolved Problem 12/18/[address] [facility] DM (Confirmed) Active Problem 12/18/[address] [facility] SOB on Active Problem 12/18/[address] [facility] exertion(Confirme d) GERD (Confirmed) Active Problem 12/18/[address] [facility] Emphysema of lung Active Problem 12/18/[address] [facility] PE (Confirmed) Resolved Problem 12/18/[address] [facility] Sleep apnea Active Problem 12/18/[address] [facility] Diaphragmatic 11/04/[address] [facility] hernia without obstruction or gangrene Gastritis, 11/10/[address] [facility] unspecified, without bleeding Chronic 11/10/[address] [facility] obstructive pulmonary disease, unspecified Sleep apnea, 11/10/[address] [facility] unspecified Type 2 diabetes 11/12/[address] [facility] mellitus without complications [employer] use of 11/10/[address] [facility] oral hypoglycemic drugs Other senior care 11/10/[address] [facility] drug therapy Nicotine 11/12/[address] [facility] dependence, cigarettes, uncomplicated Chronic Inactive Finding 09/03/[address] [facility] obstructive [...] [place] History of Active Finding 09/03/[address] pulmonary embolus [facility] [place] DYSPHAGIA, Active [facility] UNSPECIFIED GASTRO-ESOPHAGEAL Active [facility] REFLUX DISEASE WITHOUT DIAPHRAGMATIC Active [facility] HERNIA WITHOUT OBSTRUCTION Medications Medication Details Route Status Patient Ordering Order Source Instructions Provider Date Oxycodone 5 mg, 5 mL, Inactive Hydrochloride 1 Route: PO, 2017 [facility] MG/ML Oral ONCE, Dosing Solution Weight 113.636, kg, Start date: 04/25/18 12:47:00 CDT, Stop date: 04/25/18 12:47:00 CDT Labetalol 10 mg, Route: Inactive IVP, Q5Min, 2017 [facility] Dosing Weight 113.636, kg, PRN Elevated BP, Start date: 04/25/18 11:19:00 CDT, Duration: 5 doses or times, Stop date: Limited # of times Hydralazine 10 mg, Route: Inactive IVP, Q20Min, 2017 [facility] Dosing Weight 113.636, kg, PRN Elevated BP, Start date: 04/25/18 11:19:00 CDT, Duration: 2 doses or times, Stop date: Limited # of times Oxycodone 5 mg, Route: Inactive PO, Drug form: 2017 [facility] TAB, Q4H, Dosing Weight 113.636, kg, PRN Pain Score 4-6, Start date: 04/25/18 11:19:00 CDT, Duration: 30 day, Stop date: 05/25/18 11:18:00 CDT Diphenhydramine 12.5 mg, Route: Inactive IVP, Drug form: 2017 [facility] INJ, Q6H, Dosing Weight 113.636, kg, PRN Itching, Start date: 04/25/18 11:19:00 CDT, Duration: 30 day, Stop date: 05/25/18 11:18:00 CDT Naloxone 0.1 mg, Route: Inactive SUB-Q, Q6H, 2017 [facility] Dosing Weight 113.636, kg, PRN Itching, Start date: 04/25/18 11:19:00 CDT, Duration: 30 day, Stop date: 05/25/18 11:18:00 CDT Albuterol 0.83 2.49 mg, Route: Inactive MG/ML Inhalant NEB, Q20Min, 2017 [facility] Solution Dosing Weight 113.636, kg, PRN Wheezing, Priority: STAT, Start date: 04/25/18 11:19:00 CDT, Duration: 30 day, Stop date: 05/25/18 11:18:00 CDT Hydromorphone 0.5 mg, Route: Inactive IVP, Q5Min, 2017 [facility] Dosing Weight 113.636, kg, PRN Pain Score 7-10, Start date: 04/25/18 11:19:00 CDT, Duration: 4 doses or times, Stop date: Limited # of times Meperidine 12.5 mg, Route: Inactive IVP, Q30Min, 2017 [facility] Dosing Weight 113.636, kg, PRN Other -See Comment, For shivering, Start date: 04/25/18 11:19:00 CDT, Duration: 2 doses or times, Stop date: Limited # of times Fentanyl 25 microgram, Inactive Route: IVP, 2017 [facility] Q5Min, Dosing Weight 113.636, kg, PRN Pain Score 4-6, Priority: Routine, Start date: 04/25/18 11:19:00 CDT, Duration: 4 doses or times, Stop date: Limited # of times Flumazenil 0.2 mg, Route: Inactive IVP, PRN, 2017 [facility] Dosing Weight 113.636, kg, PRN Benzodiazepine Reversal, Initial dose, Start date: 04/25/18 11:19:00 CDT, Duration: 30 day, Stop date: 05/25/18 11:18:00 CDT 72 HR 1 patch, Route: Inactive Scopolamine TOP, Drug Form: 2017 [facility] 0.0139 MG/HR ERFILM, Dosing Transdermal Weight 113.636, Patch kg, ONCE, Apply behind ear. Avoid use in elderly., Start date: 04/25/18 11:19:00 CDT, Stop date: 04/25/18 11:19:00 CDT Promethazine 6.25 mg, Route: Inactive IVPB, ONCE, 2017 [facility] Dosing Weight 113.636, kg, PRN Nausea & Vomiting, Start date: 04/25/18 11:19:00 CDT Ondansetron 4 mg, Route: Inactive 04/25/ MH IVP, ONCE, 2017 [facility] Dosing Weight 113.636, kg, PRN Nausea & Vomiting, Start date: 04/25/18 11:19:00 CDT levofloxacin Route: IV, Drug Inactive 04/25/ MH (ANES) form: INJ, 2017, Stop date: 04/25/18 9:59:00 CDT fentaNYL (ANES) Route: IV, Drug Inactive 04/25/ MH form: [id number], Stop date: 04/25/18 9:44:00 CDT lidocaine (ANES) Route: IV, Drug Inactive 04/25/ MH form: [id number], Stop date: 04/25/18 9:44:00 CDT rocuronium Route: IV, Drug Inactive 04/25/ MH (ANES) form: [id number], Stop date: 04/25/18 9:44:00 CDT propofol (ANES) Route: IV, Drug Inactive 04/25/ MH form: [id number], Stop date: 04/25/18 9:44:00 CDT ondansetron Route: IV, Drug Inactive 04/25/ MH (ANES) form: [id number], Stop date: 04/25/18 9:44:00 CDT acetaminophen Route: IV, Drug Inactive 04/25/ MH (ANES) form: [id number], Stop date: 04/25/18 9:44:00 CDT famotidine Route: IV, Drug Inactive 04/25/ MH (ANES) form: [id number], Stop date: 04/25/18 9:44:00 CDT scopolamine Route: IV, Drug Inactive 04/25/ MH (ANES) form: ERFILM, 2017, Stop date: 04/25/18 9:44:00 CDT dexamethasone Route: IV, Drug Inactive 04/25/ MH (ANES) form: [id number], Stop date: 04/25/18 9:44:00 CDT midazolam (ANES) Route: IV, Drug Inactive form: SOLN, 2017 [facility] ONCE, Stop date: 04/25/18 9:34:00 CDT Sodium Chloride Route: IV, Inactive 0.9% IV (ANES) Total Volume: 2017 [facility] 1000 mL 1,000, Start date: 04/25/18 8:58:00 CDT, Stop date: 04/25/18 9:58:00 CDT Calcium Chloride 1,000 mL, Rate: Inactive 0.0014 MEQ/ML / 25 ml/hr, 2017 [facility] Potassium Infuse over: 40 Chloride 0.004 hr, Route: IV, MEQ/ML / Sodium Dosing Weight Chloride 0.103 113.636 kg, MEQ/ML / Sodium Total Volume: Lactate 0.028 1,000, Start MEQ/ML date: 04/25/18 Injectable 8:50:00 CDT, Solution Duration: 30 day, Stop date: 05/25/18 8:49:00 CDT, 2.41, m2 Lactated Ringers Route: IV, Inactive Injection IV Total Volume: 2017 [facility] (ANES) 1000 mL 1,000, Start date: 04/25/18 8:49:00 CDT, Stop date: 04/25/18 9:49:00 CDT heparin sodium, Route: SUB-Q, Inactive porcine 2500 Drug form: INJ, 2017 [facility] UNT/ML ONCALL, Dosing Injectable Weight 113.636, Solution kg, Start date: 04/25/18 8:00:00 CDT, Duration: 30 day, Stop date: 05/25/18 7:59:00 CDT Insulin regular 4 unit, Route: Inactive IV, ONCE, 2017 [facility] Dosing Weight 113.636, kg, Start date: 04/25/18 7:58:00 CDT, Stop date: 04/25/18 7:58:00 CDT Sodium Chloride 500 mL, Rate: Inactive 0.9% IV 500 mL 25 ml/hr, 2017 [facility] Infuse over: 20 hr, Route: IV, Dosing Weight 112.727 kg, Total Volume: 500, Start date: 04/23/18 7:17:00 CDT, Duration: 30 day, Stop date: 05/23/18 7:16:00 CDT, 2.4, m2 Tresiba 100 units, Active FlexTouch SUB-Q, QAM 2018 (Insulin), 0 Refill(s) Humalog 15 unit, SUB-Q, Active TID-Before 2018 Meals, 0 Refill(s) rivaroxaban 20 20 mg=1 tab, Active MG Oral Tablet PO, QPM, # 30 2018 [facility] [Xarelto] tab, 3 Refill(s) Fenofibrate 145 145 mg=1 tab, Active MG Oral Tablet PO, Bedtime, 0 2018 Refill(s) OLANZapine 10 mg 10 mg=1 tab, Active oral tablet PO, QPM, 0 2017 [facility] Refill(s) 24 HR Divalproex 3 tabs, PO, Active Sodium 500 MG Bedtime, 0 2018 [facility] Extended Release Refill(s) Tablet [Depakote] pantoprazole 40 40 mg=1 tab, Active mg oral enteric PO, BID, 0 2018 [facility] coated tablet Refill(s) pregabalin 150 150 mg=1 cap, Active MG Oral Capsule PO, QAM, 0 2018 [facility] [Lyrica] Refill(s) venlafaxine 150 150 mg=1 tab, Active mg oral tablet, PO, QAM, # 30 2018 [facility] extended release tab, 0 Refill(s) olanzapine 5 MG 5 mg=1 tab, PO, Active Oral Tablet QAM, 0 2018 [facility] Refill(s) pioglitazone 30 30 mg=1 tab, Active mg oral tablet PO, QAM, 0 2018 Refill(s) Alprazolam 1 MG 1 mg=1 tab, PO, Active Oral Tablet QAM, 0 2018 [facility] [Xanax] Refill(s) metFORMIN 500 mg 1,000 mg=2 tab, Active oral tablet, PO, BID, 0 2018 [facility] extended release Refill(s) Pregabalin TWICE DAILY Active [facility] 2018 [facility] [place] Doxycycline TWICE DAILY Active St[facility] Hyclate 2018 [facility] [place] Mupirocin Oint TWICE DAILY Active Larsen [facility] [place] Colchicine TWICE DAILY Active [facility] [place] Insulin Detemir DAILY AT SUPPER Active [facility] 2017 [facility] [place] Ciprofloxacin TWICE DAILY Active [facility] St[facility] Hcl 2017 [facility] [place] Venlafaxine Hcl AT BEDTIME Active [facility] St[facility] 2017 [facility] [place] Atorvastatin AT BEDTIME Active [facility] St[facility] Calcium 2017 [facility] [place] Insulin Detemir AT BEDTIME Active Prezas [facility] [place] Insulin Detemir AT BEDTIME Active [facility] 2017 [facility] [place] Sulfamethoxazole TWICE DAILY Active [facility] /Trimethoprim 2017 [facility] [place] Collagenase DAILY Active [facility] 2016 [facility] [place] Insulin Detemir DAILY Active [facility] 2016 [facility] [place] Rivaroxaban AT BEDTIME Active [facility] St[facility] 2016 [facility] [place] Alprazolam TWICE DAILY Active [facility] 2016 [facility] [place] Rivaroxaban TWICE DAILY Active [facility] 02/14/ [facility] St[facility] 2016 [facility] [place] Apixaban TWICE DAILY Active Torres [facility] St[facility] 2016 [facility] [place] Divalproex AT BEDTIME Active [facility] St[facility] Sodium 2015 [facility] [place] Venlafaxine Hcl DAILY AT 0600 Active [facility] St[facility] *Xr* 2015 [facility] [place] Olanzapine AT BEDTIME Active [facility] 2015 [facility] [place] Pantoprazole TWICE DAILY Active [facility] St[facility] Sodium 2015 [facility] [place] Gabapentin THREE TIMES A Active [facility] St[facility] DAY 2015 [facility] [place] Levofloxacin DAILY Active Gallardo [facility] St[facility] 2015 [facility] [place] Metformin Hcl TWICE DAILY Active [facility] St[facility] 2015 [facility] [place] Venlafaxine Hcl DAILY Active [facility] St[facility] 2015 [facility] [place] Divalproex AT BEDTIME Active St. Sodium 2013 [facility] [place] Hydrocodone FOUR TIMES Active . Bit/Acetaminophe DAILY PRN For 2013 [facility] n Pain [place] Aripiprazole TWICE DAILY Inactive . 2013 [facility] [place] Hum Insulin DAILY Active . Nph/Reg Insulin 2013 [facility] [place] Furosemide DAILY Active . 2013 [facility] [place] Pantoprazole DAILY Active . 2013 [facility] [place] Special Order Active . 2013 [facility] [place] Topiramate TWICE DAILY Active . 2013 [facility] [place] Gabapentin THREE TIMES A Active . DAY 2013 [facility] [place] Hydrocodone/Acet EVERY TWELVE Active . aminophen HOURS NEEDED 2011 [facility] PRN For Pain [place] Risperdal Consta SEE COMMENT Active . 2011 [facility] [place] Hydroxyzine Hcl THREE TIMES A Active . DAY PRN For 2011 [facility] Anxiety [place] Insuln Asp DAILY AT SUPPER Active . Prt/Insulin 2012 [facility] Aspart [place] Lisinopril DAILY Active . 2012 [facility] [place] Tramadol Hcl EVERY 6 HOURS Active . PRN For Pain 2011 [facility] [place] Allergies, Adverse Reactions, Alerts Substance Category Reaction Severity Reaction Status Date Comments Source type Reported amoxicillin Unknown Allergy to Active [facility] St[facility] Substance 8 [facility] [place] aripiprazole Unknown Allergy to Active [facility] Substance 8 [facility] [place] meperidine Unknown Allergy to Active [facility] Substance 8 [facility] [place] Penicillins Unknown Allergy to Active [facility] Substance 8 [facility] [place] pentazocine Rash Allergy to Active [facility] St[facility] lactate Substance 8 [facility] [place] penicillins Assertion Drug Active allergy [facility] [place] [facility] Active [facility] allergy [facility] Immunizations Immunization Date Given Site Status Last Comments Source Updated Influenza Adult 05/16/[address] [facility] - [place] Results Order Name Results Value Reference Date Interpretation Comments Source Range BLOOD BANK ABO/Rh B POS 04/19 RESULTS /2017 [facility] BLOOD BANK Antibody Negative 04/19 RESULTS Scrn (04/19/18 3:18 PM) [facility] CHEM PANEL eGFR 56 04/19 Result Comment: The [facility] eGFR is calculated using the CKD-EPI formula. In most young, healthy individuals the eGFR will be >90 mL/min/1.73m2 . The eGFR declines with age. An eGFR of 60-89 may be normal in some populations, particularly the elderly, for whom the CKD-EPI formula has not been extensively validated. Use of the eGFR is not recommended in the following populations:< br/>
[place] viduals with unstable creatinine concentration s, including patients and those with serious co-morbid conditions.<b r/>
Patie nts with extremes in muscle mass or diet.

The data above are obtained from the National Kidney Disease Education Program (NKDEP) which additionally recommends that when the eGFR is used in patients with extremes of body mass index for purposes of drug dosing, the eGFR should be multiplied by the estimated BMI. CHEM PANEL AST 21 0 - 37 04/19 [facility] CHEM PANEL Albumin Lvl 3.2 3.5 - 5.0 04/19 [facility] CHEM PANEL ALT 25 0 - 65 04/19 [facility] CHEM PANEL Alk Phos 65 39 - 136 04/19 [facility] CHEM PANEL Bili Total 0.2 0.2 - 1.3 04/19 [facility] CHEM PANEL Calcium Lvl 9.0 8.5 - 10.5 04/19 [facility] CHEM PANEL Total 6.7 6.4 - 8.4 04/19 Protein [facility] CHEM PANEL Glucose Lvl 288 70 - 99 04/19 [facility] CHEM PANEL BUN 18 7 - 22 04/19 [facility] CHEM PANEL Creatinine 1.13 0.50 - 04/19 Lvl 1.40 /2017 [facility] CHEM PANEL Sodium Lvl 143 135 - 145 04/19 [facility] CHEM PANEL Chloride Lvl 105 95 - 109 04/19 [facility] CHEM PANEL CO2 27 24 - 32 04/19 /2017 [facility] CHEM PANEL Potassium 4.5 3.5 - 5.1 04/19 Lvl /2017 [facility] CHEM PANEL AGAP 15.5 10.0 - 04/19 20.0 /2017 [facility] CHEM PANEL B/C Ratio 16 6 - 25 04/19 /2017 [facility] CHEM PANEL Globulin 3.5 2.7 - 4.2 04/19 /2017 [facility] CHEM PANEL A/G Ratio 0.9 0.7 - 1.6 04/19 /2017 [facility] HEMATOLOGY PTT 25.8 22.9 - 04/19 MH 35.8 /2017 [facility] HEMATOLOGY PT 14.0 12.0 - 04/19 MH 14.7 /2017 [facility] HEMATOLOGY INR 1.08 0.85 - 04/19 MH 1.17 /2017 [facility] HEMATOLOGY Platelet 162 133 - 450 04/19 /2017 [facility] HEMATOLOGY MPV 8.7 7.4 - 10.4 04/19 /2017 [facility] HEMATOLOGY MCH 29.7 27.0 - 04/19 MH 31.0 /2017 [facility] HEMATOLOGY RDW 15.0 11.5 - 04/19 14.5 /2017 [facility] HEMATOLOGY MCHC 33.1 32.0 - 04/19 36.0 /2017 [facility] HEMATOLOGY MCV 89.8 80.0 - 04/19 98.0 /2017 [facility] HEMATOLOGY Hct 39.1 36.0 - 04/19 48.0 /2017 [facility] HEMATOLOGY WBC 6.0 3.7 - 10.4 04/19 /2017 [facility] HEMATOLOGY Hgb 12.9 12.0 - 04/19 16.0 /2017 [facility] HEMATOLOGY RBC 4.35 4.20 - 04/19 MH 5.40 /2018 [facility] HEMATOLOGY Eosinophils 0.1 0.0 - 0.5 04/19 MH # /2018 [facility] HEMATOLOGY Neutrophils 3.5 1.5 - 8.1 04/19 MH # /2017 [facility] HEMATOLOGY Monocytes # 0.4 0.0 - 0.8 04/19 /2017 [facility] HEMATOLOGY Basophils 0.3 0.0 - 1.0 04/19 /2017 [facility] HEMATOLOGY Lymphocytes 1.9 1.0 - 5.5 04/19 MH # /2017 [facility] HEMATOLOGY Eosinophils 2.3 0.0 - 4.0 04/19 /2017 [facility] HEMATOLOGY Monocytes 7.4 2.0 - 12.0 04/19 /2017 [facility] HEMATOLOGY Lymphocytes 31.6 20.0 - 04/19 40.0 /2017 [facility] HEMATOLOGY Segs 58.4 45.0 - 04/19 75.0 /2017 [facility] SPECIAL Hgb A1C 10.3 <=5.6 % 04/19 CHEMISTRY /2017 [facility] URINE AND UA <=1.0 0.1 - 1.0 04/19 STOOL Urobilinogen mg/dL [facility] URINE AND UA Nitrite Negative Negative 04/19 STOOL (04/19/18 3:18 PM) [facility] URINE AND UA Leuk Est Negative Negative 04/19 STOOL (04/19/18 3:18 PM) [facility] URINE AND UA Sq Epi Few /LPF Few /LPF 04/19 STOOL [facility] URINE AND UA WBC 1 0 - 5 04/19 STOOL [facility] URINE AND UA Blood Negative Negative 04/19 STOOL (04/19/18 3:18 PM) /2017 [facility] URINE AND UA RBC 5 0 - 2 04/19 STOOL [facility] URINE AND UA pH 5.0 5.0 - 8.0 04/19 STOOL [facility] URINE AND UA Spec Grav 1.025 <=1.030 04/19 STOOL [facility] URINE AND UA Protein Negative Negative 04/19 STOOL mg/dL mg/dL [facility] URINE AND UA Ketones Trace Negative 04/19 STOOL mg/dL mg/dL [facility] URINE AND UA Glucose 500 mg/dL Negative 04/19 STOOL mg/dL /2017 [facility] URINE AND UA Turbidity Slight Clear 04/19 STOOL *ABN* /2017 [facility] (04/19/18 3:18 PM) URINE AND UA Color Yellow Yellow 04/19 STOOL *NA* /2017 [facility] (04/19/18 3:18 PM) URINE AND UA Bili Negative Negative 04/19 STOOL *NA* /2017 [facility] (04/19/18 3:18 PM) BLOOD BANK RBC product Product available 04/19 RESULTS (04/19/18 3:00 PM) /2017 [facility] Laboratory Bedside 222 65 - 120 09/[address] [facility] [address] Studies Glucose [facility] [place] Laboratory Prothrombin 12.3 9.5 - 12.5 08/[address] [place] [facility] Studies Time /2017 [facility] [place] Laboratory INR 1.04 08/30 [facility] Studies Internationa /2017 [facility] l Normalized [place] Ratio Laboratory Activated 29.2 24.3 - 02 [facility]. Studies Partial 36.9 /2017 [facility] Thromboplast [place] Time Laboratory White Blood 8.1 4.3 - 10.9 08/30 [facility]. Studies Count /2017 [facility] [place] Laboratory Red Cell 14.1 12.1 - 08/30 [facility]. Studies Distribution 15.2 /2017 [facility] Width [place] Laboratory Red Blood 3.88 3.86 - 02 [facility]. Studies Count 4.86 /2017 [facility] [place] Laboratory Platelet 243 152 - 406 08/30 [facility]. Studies Count /2017 [facility] [place] Laboratory Neutrophils 58.7 41.7 - 02 [facility]. Studies % 73.7 /2017 [facility] [place] Laboratory Monocytes % 4.7 3.3 - 12.3 08/30 [facility]. Studies /2017 [facility] [place] Laboratory Mean 9.0 7.6 - 11.3 08/30 [facility]. Studies Platelet /2017 [facility] Volume [place] Laboratory Mean 84.9 80 - 100 08/30 [facility]. Studies Corpuscular /2017 [facility] Volume [place] Laboratory Mean 32.8 32.0 - 08/30 [facility]. Studies Corpuscular 36.0 /2017 [facility] Hemoglobin [place] Concent Laboratory Mean 27.9 27.0 - 08/30 [facility]. Studies Corpuscular 35.0 /2017 [facility] Hemoglobin [place] Laboratory Lymphocytes 34.2 15.3 - 02 [facility] [address] Studies % 44.8 /2017 [facility] [place] Laboratory Hemoglobin 10.8 12.0 - 08/30 [facility] [address] Studies 15.0 /2017 [facility] [place] Laboratory Hematocrit 32.9 36.0 - 08/30 [facility]. Studies 45.0 /2017 [facility] [place] Laboratory Eosinophils 1.9 0 - 4.4 08/30 [facility] [address] Studies % /2017 [facility] [place] [facility] Basophils % 0.5 0 - 1.3 08/30 [facility] St[facility] Studies /2018 [facility] [place] Laboratory Absolute 4.8 1.8 - 8.0 08/30 [facility]. Studies Neutrophil /2017 [facility] [place] [facility] Absolute 0.4 0.1 - 1.3 08/[address] [facility] [address] Studies Monocytes /2017 [facility] (CBC) [place] Laboratory Absolute 2.8 0.7 - 4.9 08/30 St[facility] Studies Lymphocytes /2017 [facility] (CBC) [place] Laboratory Absolute 0.2 0 - 0.5 08/30 St[facility] Studies Eosinophils /2017 [facility] (CBC) [place] Laboratory Absolute 0.0 0 - 0.5 08/30 St[facility] Studies Basophils /2017 [facility] (CBC) [place] Laboratory Urine pH 6.0 08/30 St. Studies /2017 [facility] [place] [facility] Urine 1.0 08/30 [facility]. Studies Urobilinogen /2017 [facility] [place] Laboratory Urine Total Urine 08/30. Studies Protein Total /2017 [facility] Protein [place] Laboratory Urine 1.025 08/30 [facility] [address] Studies Specific /2017 [facility] [place] Laboratory Urine Urine 08/30 [facility]. Studies Nitrite Nitrite /2017 [facility] [place] Laboratory Urine Urine 08/30 [facility]. Studies Leukocyte Leukocyte /2017 [facility] Esterase Esterase [place] Laboratory Urine Urine 08/30 [facility]. Studies Ketones Ketones /2017 [facility] [place] [facility] Urine Urine 08/30 [facility]. Studies Glucose Glucose /2017 [facility] [place] [facility] Urine Color Urine 08/30 [facility]. Studies Color /2017 [facility] [place] [facility] Urine Blood Urine 08/30 [facility]. Studies Blood /2017 [facility] [place] [facility] Urine Urine 08/30 [facility] Studies Bilirubin Bilirubin /2017 [facility] Urine Urine 08/30 [facility]. Studies Appearance Appearance /2017 [facility] Uric Acid 7.1 2.6 - 8.0 08/23 [facility] [address] Studies /2017 [facility] [place] Estimat 61 90 08/23 [facility]. Studies Glomerular /2017 [facility] [place] [facility] Laboratory Creatinine 0.97 0.44 - 02 [facility] [address] Studies 1.00 /2017 [facility] Blood Urea 23 6 - 20 08/23 [facility]. Studies Nitrogen /2017 [facility] Sodium Level 133 135 - 145 08/23 [facility] [address] Studies /2017 [facility] Potassium 3.6 3.6 - 5.0 08/[address] [address] Studies Level /2018 [facility] [facility] Glucose 288 65 - 120 08/23 [facility] [address] Studies Level /2017 [facility] Chloride 99 101 - 111 08/23 [facility] [address] Studies Level /2017 [facility] Carbon 25 21 - 31 08/23 [facility] [address] Studies Dioxide kes - [facility] [facility] Calcium 9.0 8.5 - 10.5 08/23 [facility] [address] Studies Level /2017 [facility] [place] [facility]biolo Staph Aureus Staph 07/21 [facility] gy Studies Aureus [facility] Sedimentatio 32 0 - 30 07/18 [facility] Studies n Rate, [facility] [facility] C-Reactive 36.4 07/18 [facility] Studies Protein [facility] Hemoglobin 11.1 4 - 6.0 07/18 [facility]. Studies A1c [facility] Reports No Data Provided for This Section Diagnostic Reports Report Value Date Source Barium Swallow w Barium Swallow w Esophagus Function DX 05/30/[address] [facility] Esophagus Function DX COMPARISON: None CLINICAL HISTORY: - epigastric pain; generalized abdominal [...] from the stomach into proximal small bowel. [id number] Chest 2 views DX Patient Name: MANJINDER DODSON 04/19/[address] [facility] : 1965; Age: 52 years Female MR: [id number] Study: Chest 2 views DX Order Time: 04/19/2018 3:01 PM CDT CLINICAL INDICATION: Coughing - preop COMPARISON: None [...] Recommend CT chest for further characterization. SL: [id number] Barium Swallow w Fluoro Time and Dose: 6.1min/369.66mGy air kerma 04/17/[address] [facility] Esophagus Function DX Barium Swallow w Esophagus Function DX COMPARISON: None CLINICAL HISTORY: - R13.10 Dysphagia, unspecified,K44.9 Diaphragmatic hernia without obstruction or gangrene. TECHNIQUE: Thin barium was utilized for recumbent prone oblique and LPO images. Thick barium was utilized for upright imaging of the esophagus and pharynx. Granola bar mixed with barium was given to evaluate motility with solids. FINDINGS: There is no delay in passage [...] to the stomach. Tertiary contractions and an air-fluid level is noted in the esophagus. There [...] is visualized at the GE junction. SL: [id number] Consultation Notes No Data Provided for This Section Discharge Summaries No Data Provided for This Section History and Physicals No Data Provided for This Section Vital Signs Vital Sign Value Date Comments Source Systolic (mm Hg) 150 04/25/[address] [facility] Diastolic (mm Hg) 75 04/25/[address] [facility] Systolic (mm Hg) 131 04/25/[address] [facility] Diastolic (mm Hg) 83 04/25/[address] [facility] Systolic (mm Hg) 140 04/25/[address] [facility] Diastolic (mm Hg) 81 04/25/[address] [facility] Respitory Rate 16 04/25/2018 [facility] Rate 16 04/25/[address] [facility] Respitory Rate 11 04/25/[address] [facility] Heart Rate 73 04/25/[address] [facility] Respitory Rate 16 04/23/[address] [facility] Systolic (mm Hg) 139 04/23/[address] [facility] Diastolic (mm Hg) 86 04/23/2018 [facility] Respitory Rate 17 04/23/[address] [facility] Systolic (mm Hg) 128 04/23/[address] [facility] Diastolic (mm Hg) 76 04/23/[address] [facility] Respitory Rate 18 04/23/[address] [facility] Systolic (mm Hg) 117 04/23/[address] [facility] Diastolic (mm Hg) 68 04/23/[address] [facility] Weight 113.636 04/23/[address] [facility] BMI Calculated 34.94 04/23/[address] [facility] Height 180.34 cm 04/23/[address] [facility] Temperature Oral (F) 97.8 F 04/19/[address] [facility] Heart Rate 86 04/19/[address] [facility] BMI Calculated 34.66 04/19/[address] [facility] Weight 112.727 04/19/[address] [facility] Height 180.34 cm 04/19/[address] [facility] Temperature Oral (F) 98.6 F 09/03/2017 [facility] [place] Heart Rate 62 09/03/2017 [facility] [place] Respitory Rate 16 09/03/2017 [facility] [place] [place] Systolic (mm Hg) 128 09/03/2017 [facility] [place] Diastolic (mm Hg) 69 09/03/[address] [facility] [place] Height 71 08/30/[address] [place] [facility] [place] Weight 218 08/30/[address] [place] [facility] [place] Encounters Location Location Encounter Encounter Reason Attending ADM DC Status Source Details Type Number For Provider Date Date Visit [facility] [id number] 06/18 06/21 [facility] [place] [facility] [place] [facility] [id number] 06/19 06/[address] [facility] [place] [facility] [id number] 07/09 07/[address] [facility] [place] [facility] [id number] 07/18 07/[address] [facility] [facility] [id number] 07/[address] [facility] [place] [facility] [id number] 08/20 08/[address] [facility] [place] [facility] [id number] 08/23 08/[address] [facility] [place] [facility] [id number] 08/[address] [facility] [place] [facility] [id number] 08/27 08/[address] [facility] [place] [facility] [id number] 09/03 09/[address] [facility] [id number] 04/17 04/18 [facility] /2017 [facility] [id number] [facility] 04/23 04/23 [facility] Outpatient [facility] /2017 [facility] Inpatient [id number] [facility] 04/25 04/25 [facility] Outpatient [id number] [facility] 05/30 05/31 [facility] Procedures Procedure Code Date Perfomer Comments Source Foot Left 3 View [id number] [facility] [place] Anaerobic Blood Culture [id number] [facility] - [place] Aerobic Blood Culture [id number] [facility] Blank 018 - [place] Anaerobic Blood Culture [id number] [facility] Blank 017 - [place] Aerobic Blood Culture [id number] [facility] 017 - [place] Gram Stain [id number] [facility] Blank 017 - [place] Culture & Sensitivity [id number] [facility] 017 - [place] Foot Left 3 View [id number] [facility] 017 - [place] DETACHMENT AT LEFT 2ND TOE, [id number] [facility] COMPLETE, OPEN APPROACH 017 - [place] AMPUTATION OF TOE 51812 [facility] 017 - [place] Gram Stain [id number] [facility] 017 - [place] Anaerobic Culture [id number] [facility] 017 - [place] Amputation [id number] [facility] Colonoscopy [id number] [facility] Esophagogastroduodenoscopy [id number] [facility] Hysterectomy [id number] [facility] Resection [id number] [facility] Assessment and Plan Assessment and Plan Date Source Extracted from:Title: Clinical Document 04/25/[address] [facility] Author: Meseret Abbott MD Date: 04/25/18 PATIENT NAME: MARILEE DODSON DATE OF OPERATION/PROCEDURE: 04/25/2018 PREOPERATIVE DIAGNOSIS: 1. Achalasia 2. Regurgitation and dyspahgia POSTOPERATIVE DIAGNOSIS: 1. Achalasia 2. Regurgitation and dyspahgia SURGEON: Meseret Abbott M.D. ANTISQUEAK WORKER: [facility] [employer] assistants PROCEDURES PERFORMED: 1. Laparoscopic esophagomyotomy, Heller type. 2. Laparoscopic esophagogastric Rodrigo fundoplasty. 3. Upper endoscopy to evaluate the extent of myotomy, the repair and the presence of leak. INDICATIONS FOR PROCEDURE: Patient is a 52-year-old female with 5 years history of progressive dysphagia to solids and liquids and regurgitation which is worse over the last year. The video esophagram showed a straight esophagus with bird's beak appearance at the level of the gastroesophageal junction. The esophageal motility study showed absence of esophageal contractions and peristalsis in the esophageal body and failu re of relaxation of the lower esophageal sphincter. Upper endoscopy showed a narrow gastroesophageal junction without evidence of any mass. The retroflexed view of the gastroesophageal junction showed a Hill valve grade I. Our plan was to perform a laparoscopic versus open Heller myotomy with a Rodrigo fundoplication and an upper endoscopy to assess the repair and the presence of leak. The risks of this procedure including infection, bleeding, risk of injury to intra-abdominal structures such as esophagus, stomach and spleen, postoperative leak, intraoperative pneumothorax requiring chest tube, recurrent dysphagia, gastro esophageal reflux and were all explained to the patient. He understood and agreed to proceed. PROCEDURE: The patient was brought to the operating room and was placed on the operating table in a supine position. After undergoing general endotracheal anesthesia, the operating room table was placed in the rev erse Trendelenburg position with his feet spread apart. The patient's feet were secured to the operating table. The skin of the anterior abdomen was then prepped and draped in the usual sterile f ashion. A small incision was made just above the umbilicus. Subcutaneous tissues were dissected. Using the Omni port and a 0-degree camera, entrance to the abdominal cavity was performed without any injury to intra-abdominal structures. Pneumoperitoneum was obtained. Under laparoscopic control, dissection ports were inserted. One 12-mm dissection port was placed in the left upper quadrant, one 11 mm retraction port was placed in the left lower quadrant. A 5-mm port was placed for liver retraction and a 5-mm working port was placed in the right upper quadrant. The liver retractor was inserted a nd the liver was retracted superiorly and to the right. The procedure was begun by identifying the gastrohepatic ligament which was divided. The esophagus was from the right nitish as well as t he left nitish. Subsequently, the short gastric vessels were divided to about 1/ 4 of the distance from the cardia to the pylorus and the fundus of the stomach was fully mobilized. Subsequently, the charlotte roesophageal fat pad was identified and was dissected free from the left to the right side and was brought to the right side of the esophagus. The right angle was then used and a Vesseloop was placed a round this tissue to expose better the gastroesophageal junction and the distal esophagus, and to protect the vagus nerve. The esophagus was then dissected free on the left side from the left nitish all the way up to the level of the anterior aspect of the esophageal hiatus. The gastroesophageal junction was identified where the stomach flared up from the tubular esophagus. The site of the myotomy, which was on the left side of the esophagus was marked with the Bovie from the anterior esophageal hiatus down to beyond the gastroesophageal junction on the stomach. Subsequently, the myotomy was performed using dissector. The esophageal muscle was found to be very thick. The myotomy was carried out using Harmonic Scalpel superiorly up to the level of the diaphragmatic hiatus. The hook electrocautery was then used to extend the myotomy inferiorly and this was brought be yond the gastroesophageal junction for approximately 3 cm. The extent of myotomy continued along the greater curvature. The myotomy included the left lateral surface of the esophagus at the highest po int of the anterior part of the esophageal hiatus and was extended on the stomach for about 3 cm. After completing the myotomy and dividing all small septa in the area, we then used the Kittner to push back the edges of the esophageal muscle so that the myotomy site itself was free of any mucosal tissue. An upper endoscopy was performed, the stomach could be easily inflated by inflating the esophagus and there was no evidence of leak. Subsequently, a Rodrigo fundoplication was performed by placing interrupted stitches through the stomach and the left nitish and the left side of the myotomy. This was brought superiorly each time by taking the stomach and left nitish on the lateral side of the myotomy up to the level of the esophageal hiatus. This was continued as we brought the greater curvature up to cover the myotomy site. The myotomy was placed in the left lateral position so there was no distortion or torsion of the stomach and it was brought up to close the myotomy site. Having had about 3 cm of the stomach also myotomized, this opposed the mucosa of the stomach against the mucosa of the esophagus, so that the frenulum between the stomach and esophagus was just a folded mucosal layer. At the very apex of the esophageal hiatus, one stitch was placed through the stomach, through the nitish and then through the esophagus above the myotomy site and then back through the nitish and was tied. This stitch anchored the uppermost portion of the esophagus above the myotomy site to the nitish to prevent further. The stitches were then continued on the right side, suturing stomach and the free ma rgin myotomy site and the right side. Once this had been completed, the stomach laid nicely in the left lateral plane and the myotomy was down the left lateral side of the esophagus. An upper endoscopy was then performed to secure that there was no torsion and there was easy access of the scope into the stomach. The stomach could be easily inflated by inflating the esophagus and th e retroflex view of the stomach showed a well formed Rodrigo fundoplication. The stomach was distended. There was no evidence of leak. The stomach was then deflated and the scope was removed. Hemostasis was verified and there was no evidence of bleeding. Each port was placed under direct vision. All the ports were removed. The skin of the port incisions were closed using 4-0 subcuticular stitches. The patient tolerated the procedure well, was extubated and was transferred to the postanesthesia recovery room without any complications. I was scrubbed and present for the entire procedure and performed the procedure from the beginning to the end. Plan of Care Plan of Care Date Source No known plan of care. 09/03/2017 [facility] No known plan of care. 09/03/2017 [facility] Social History Social History Date Source Social History TypeResponse 04/25/[address] [facility] Smoking Status Current every day smoker; Type: Cigarettes; Exposure to Tobacco Smoke self; Cigarette Smoking Last 365 Days Yes; Reg Smoking Cessation Counseling Yes; Other Tobacco Frequency 1 pk every 3 days; entered on: 04/25/18 Query Response Date Recorded Comment 07/23/1969 [facility] Alcohol Use? No August 23, 2017 1:51pm CD- Drugs? No August 23, 2017 1:51pm Query Response Start Date Stop Date Smoking Status Current every day smoker July 23, 1969 Family History Value Date Source Query Response Instance Date Recorded Comment 09/03/2017 [facility] Nurses notes breast cancer Mother August 23, 2017 1:51pm Medical History Heart disease Hypertension Diabetes Cancer Mother August 23, 2017 1:51pm Medical History Heart disease Father August 23, 2017 1:51pm Nurses notes breast cancer February 02, 2015 2:35pm Medical History Heart disease February 02, 2015 2:35pm Advance Directives Order Name Results Value Date Source Advance Directives Advance Directives Advance Directive Response Recorded Date/Time 09/03/2017 [facility] - Does Patient Have Living Will [place] No August 23, 2017 8:59am Durable Power of Engine Test Cell Technician for Health Care No August 23, 2017 8:59am Would you like additional information No August 23, 2017 5:15am Functional Status No Data Provided for This Section
--- OUTSIDE RECORDS SUMMARY | 2019-03-03 07:30 | XMS REPORT ---
:1965 [facility] [address] [place] [address] [address] [place] [address] Care Team Providers Name Role Phone Unavailable Unavailable Unavailable Problems This patient has no known problems. Allergies, Adverse Reactions, Alerts This patient has no known allergies or adverse reactions. Medications This patient has no known medications.
--- NOTE | 2019-03-03 08:12 | RAD REPORT ---
EXAM DESCRIPTION: CT - Head Brain Wo Cont - 03/03/2019 8:02 am CLINICAL HISTORY: AMS;Declining state Headache, altered consciousness COMPARISON: Head Brain Wo Cont dated 03/16/2016; Head Brain Wo Cont dated 12/14/2015 TECHNIQUE: All CT scans are performed using dose optimization technique as appropriate and may inclu de automated exposure control or mA/KV adjustment according to patient size. FINDINGS: No intracranial hemorrhage, hydrocephalus or extra-axial fluid collection.No areas of brai n edema or evidence of midline shift. The paranasal sinuses and mastoids are clear. The calvarium is intact. IMPRESSION: No acute intracranial abnormality.
[2019-03-03 08:21] LABS: Absolute Lymphocytes (CBC) 1.9 K/uL (0.7-4.9); Basophils % 0.2 % (0-1.3); Hematocrit 34.9 % (36.0-45.0); Lymphocytes % 26.2 % (15.3-44.8); MPV 9.3 fL (7.6-11.3); RBC Red Blood Cell Count 4.11 M/uL (3.86-4.86)
[2019-03-03 08:25] LABS: Protime INR 1.07
[2019-03-03] MEDS ORDERED: NA CHLORIDE 0.9% 1,000 ML ONE (08:35)
[2019-03-03 08:40] LABS: ALT/SGPT 21 U/L (12-78); AST/SGOT 15 U/L (15-37); Alkaline Phosphatase 83 U/L (45-117); BUN Blood Urea Nitrogen 17 mg/dL (7-18); Bicarbonate 29 mmol/L (21-32); Bilirubin Direct < 0.1 mg/dL (0-0.2); Bilirubin Total 0.3 mg/dL (0.2-1.0); Glucose Level 166 mg/dL (74-106); Potassium 4.7 mmol/L (3.5-5.1); Protein, Total 6.6 g/dL (6.4-8.2); Sodium Level 144 mmol/L (136-145)
--- NOTE | 2019-03-03 09:25 | RAD REPORT ---
EXAM DESCRIPTION: RAD - Chest Single View - 03/03/2019 9:16 am CLINICAL HISTORY: ams Chest pain. COMPARISON: Chest Single View dated 11/03/2018; Chest Single View dated 07/26/2018; Chest Single View d ated 06/09/2018; Chest Single View dated 01/11/2017 FINDINGS: Portable technique limits examination quality. The lungs are grossly clear. The heart is mildly enlarged in size. No displaced fractures. IMPRESSION: Mild cardiomegaly.
[2019-03-03 09:50] LABS: Urine Blood NEGATIVE (NEG); Urine Glucose NEGATIVE (NEG); Urine Protein NEGATIVE (NEG); Urine Specific Gravity >1.030 (1.005-1.030); Urine pH 5.5 (5.0-7.0)
[2019-03-03 09:55] LABS: Barbiturates NEGATIVE (NEGATIVE); Benzodiazepines POSITIVE (NEGATIVE); Cocaine NEGATIVE (NEGATIVE); METHAMPHETAM NEGATIVE (NEGATIVE); Methadone NEGATIVE (NEGATIVE); Opiates NEGATIVE (NEGATIVE); Phencyclidine NEGATIVE (NEGATIVE); THC Cannibis NEGATIVE (NEGATIVE)
[2019-03-03] MEDS ORDERED: FLUMAZENIL 0.1 MG/ML (5 mL VIAL) IV ONE (10:05)
[2019-03-03] MEDS ORDERED: NA CHLORIDE 0.9% 250 ML ONE (10:06)
--- NOTE | 2019-03-03 10:40 | EKG ---
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
--- NOTE | 2019-03-03 10:59 | ER ---
Nurse's Notes [facility] Name: Renetta Ramsay Age: 53 yrs Sex: Female : 1965 Arrival Date: 03/03/2019 Time: 07:30 Bed 18 Private MD: Diego Solorio E Diagnosis: Dehydration;Altered mental status, unspecified;Adverse effect of benzodiazepines Presentation: 03/03 07:41 Presenting complaint: Mother states: AMS SINCE Y/D, OVERLY SOMNOLENT. Transition of bp care: patient was not received from another setting of care. Onset of symptoms is unknown. Risk Assessment: Do you want to hurt yourself or someone else? Patient reports no desire to harm self or others. Initial Sepsis Screen: Does the patient meet any 2 criteria? No. Patient's initial sepsis screen is negative. Does the patient have a suspected source of infection? No. Patient's initial sepsis screen is negative. Care prior to arrival: None. 07:41 Method Of Arrival: Wheelchair bp 07:41 Acuity: OLY 2 bp Triage Assessment: 07:45 General: Appears in no apparent distress. comfortable, obese, Behavior is drowsy. Pain: bp Unable to use pain scale. Patient is disoriented. EENT: No deficits noted. Neuro: Level of Consciousness is stuporous, Speech is slurred. Cardiovascular: No deficits noted. Respiratory: Airway is patent Respiratory effort is shallow. GI: Abdomen is obese. : No signs and/or symptoms were reported regarding the genitourinary system. Derm: No deficits noted. Musculoskeletal: No deficits noted. [employer]OR [employer] T[employer] SALES: 07:45 LMP N/A - Irregular menses bp Historical: - Allergies: 07:45 Amoxicillin; bp 07:45 ARIPIPRAZOLE; bp 07:45 Demerol; bp 07:45 PENICILLINS; bp 07:45 pentazocine lactate; bp 07:45 Talwin; bp - Home Meds: 07:45 carvedilol 12.5 mg Oral tab 1 tab 2 times per day [Active]; divalproex 500 mg Oral TbEC bp 3 tabs nightly [Active]; Effexor XR 225 mg Oral cp24 1 cap once daily [Active]; Eliquis 5 mg Oral tab 1 tab 2 times per day [Active]; fenofibrate 145 MG Oral 1 cap nightly [Active]; Xanax 1 mg Oral tab 1 tab twice a day [Active]; Wellbutrin XL 150 mg Oral Tb24 1 tab once daily [Active]; pioglitazone 30 mg Oral tab 1 tab once daily [Active]; pantoprazole 40 mg Oral TbEC 1 tab 2 times per day [Active]; olanzapine 10 mg Oral tab 1 tab IN AM [Active]; olanzapine 5 mg Oral tab 1 tab nightly [Active]; metformin 500 mg Oral Tb24 1 tab 2 times per day [Active]; Lyrica 150 mg Oral 2 times per day [Active]; Levemir 100 unit/mL subcutaneous soln 100 unit daily [Active]; Humalog 100 unit/mL Sub-Q crtg 30 unit before meals [Active]; furosemide 40 mg Oral tab 1 tab once daily [Active]; - PMHx: 07:45 ADD/ADHD; Bipolar disorder; Chronic pain; Depression; Diabetes - NIDDM; High bp Cholesterol; Hypertension; osteomyelitis; Pancreatitis; - Immunization history:: Adult Immunizations unknown. - Social history:: Smoking status: Patient uses tobacco products, unknown amount. - Ebola Screening: : No symptoms or risks identified at this time. Screenin:47 Abuse screen: Denies threats or abuse. Denies injuries from another. Nutritional bp screening: No deficits noted. Tuberculosis screening: No symptoms or risk factors identified. Fall Risk None identified. Assessment: 07:46 General: SEE TRIAGE NOTE. bp 08:06 Reassessment: PT RETURNED FROM CT. bp 08:56 Reassessment: ALL CURRENT ORDERS COMPLETED, RESULTS PENDING. bp 09:45 Reassessment: PT REMAINS STUPOROUS, ORTEGA IN PLACE AND DRAINING. bp 10:52 Reassessment: PT LEVEL OF CONSCIOUSNESS SEDATED BUT IMPROVED. DISPO PENDING. bp 12:30 Reassessment: ADMIT IN PROCESS, VS STABLE ON MONITOR. bp Vital Signs: 07:45 BP 108 / 51; Pulse 64; Resp 12; Temp 98; Pulse Ox 85% on R/A; Weight 127.01 kg; bp 08:56 BP 117 / 70; Pulse 95; Resp 19; Pulse Ox 97% on 2 lpm NC; bp 09:44 BP 114 / 56; Pulse 66; Resp 15; Pulse Ox 97% on 2 lpm NC; bp 10:52 BP 96 / 67; Pulse 69; Resp 11; Pulse Ox 100% ; bp 12:32 BP 128 / 109; Pulse 71; Resp 12; Pulse Ox 99% ; bp 14:13 BP 115 / 57; Pulse 65; Resp 16; Temp 98; Pulse Ox 99% ; bp [place] Coma Score: 07:53 Eye Response: to voice(3). Verbal Response: oriented(5). Motor Response: obeys snw commands(6). Total: 14. ED Course: 07:30 Patient arrived in ED. ag5 07:30 Diego Solorio MD is Private Physician. ag5 07:33 Lindsey Dunham FNP-C [facility]. snw 07:33 Sean Maciel MD is Attending Physician. snw 07:38 Bobby Mo, MARK is Primary Nurse. bp 07:41 Triage completed. bp 07:45 Arm band placed on. bp 07:47 Patient has correct armband on for positive identification. Bed in low position. Call bp light in reach. Side rails up X2. Adult w/ patient. 07:50 Initial lab(s) drawn, by me, sent to lab. First set of blood cultures drawn. Inserted iw saline lock: 18 gauge in right antecubital area, using aseptic technique. Blood collected. 08:03 CT Head Brain wo Cont In Process Unspecified. EDMS 09:22 Chest Single View XRAY In Process Unspecified. EDMS 10:56 Vlad Wharton MD is Hospitalizing Provider. snw 14:11 No provider procedures requiring assistance completed. Patient admitted, IV remains in bp place. Administered Medications: 08:30 Drug: NS 0.9% 1000 ml Route: IV; Rate: 1 bolus; Site: right antecubital; bp 09:15 Follow up: IV Status: Completed infusion; IV Intake: 1000ml bp 08:56 Drug: NS 0.9% 1000 ml Route: IV; Rate: 1 bolus; Site: right antecubital; bp 10:00 Follow up: IV Status: Completed infusion; IV Intake: 1000ml bp 10:09 Drug: Romazicon 0.2 mg Route: IVP; Site: right antecubital; bp 14:12 Follow up: Response: No adverse reaction bp Intake: 09:15 IV: 1000ml; Total: 1000ml. bp 10:00 IV: 1000ml; Total: 2000ml. bp Outcome: 10:57 Decision to Hospitalize by Provider. snw 14:10 Admitted to Med/surg accompanied by tech, via stretcher, room 410, with chart, Report bp called to BLANCA FLORES 14:10 Condition: stable 14:10 Instructed on the need for admit. 14:24 Patient left the ED. bp Signatures: Dispatcher [employer] EDMS Lindsey Dunham, [place] OIL REFINERY PROCESS TECHNICIAN-Csnw Jasmine Moses RN RN iw Bobby Mo RN RN bp Elizabeth Boyce ag5 Corrections: (The following items were deleted from the chart) 09:45 08:56 BP 117 / 70; Pulse 95bpm; Resp 19bpm; Pulse Ox 97%; bp bp
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
[2019-03-03] MEDS: INSULIN -REGULAR HUMAN 50 UNIT/0.5 ML ML SQ SCH ×3 (14:42→21:00)
[2019-03-03] MEDS ORDERED: ONDANSETRON 4 MG/2 ML VIAL IV PRN (14:42)
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
[2019-03-03] MEDS: NA CHLORIDE 0.9% 1,000 ML IV SCH (16:57)
[2019-03-03 17:11] VITALS: BMI 38.3
[2019-03-03] MEDS ORDERED: ATORVASTATIN 20 MG TAB PO SCH (21:00)
[2019-03-03] MEDS ORDERED: DIVALPROEX DR 500MG TAB PO SCH (21:00)
[2019-03-03] MEDS: INSULIN LISPRO 100 UNIT/1 ML SQ SCH (21:46)
[2019-03-03] MEDS: APIXABAN 2.5 MG TABLET PO SCH (21:47)
[2019-03-03] MEDS: CARVEDILOL 12.5 MG TAB PO SCH (21:48)
[2019-03-04] MEDS: NA CHLORIDE 0.9% 1,000 ML IV SCH (02:10)
[2019-03-04 05:59] LABS: Albumin 2.8 g/dL (3.4-5.0); Bilirubin Total 0.2 mg/dL (0.2-1.0); Magnesium 1.8 mg/dL (1.8-2.4); Phosphorus 3.1 mg/dL (2.5-4.9); Potassium 4.4 mmol/L (3.5-5.1)
[2019-03-04 06:26] LABS: Absolute Lymphocytes (CBC) 1.2 K/uL (0.7-4.9); Basophils % 0.3 % (0-1.3); Hematocrit 33.6 % (36.0-45.0); Lymphocytes % 27.5 % (15.3-44.8); MPV 9.5 fL (7.6-11.3)
[2019-03-04] MEDS ORDERED: PANTOPRAZOLE 40MG TABLET PO SCH (06:30)
[2019-03-04] MEDS: INSULIN -REGULAR HUMAN 50 UNIT/0.5 ML ML SQ SCH ×2 (07:30→11:30)
[2019-03-04] MEDS: APIXABAN 2.5 MG TABLET PO SCH (08:17)
[2019-03-04] MEDS: CARVEDILOL 12.5 MG TAB PO SCH (08:17)
[2019-03-04 08:18] VITALS: BP 137/66
[2019-03-04 08:51] VITALS: TEMP 98.2
[2019-03-04] MEDS ORDERED: INSULIN DEGLUDEC 100 UNIT SQ SCH (09:00)
[2019-03-04] MEDS ORDERED: FUROSEMIDE 20 MG TABLET PO SCH (09:00)
[2019-03-04] MEDS ORDERED: ENOXAPARIN 40 MG/0.4 ML SQ SCH (09:00)
[2019-03-04] MEDS ORDERED: MAGNESIUM SULFATE 1 gm IVPB 1 GM/100 ML BAG IV ONE (09:00)
[2019-03-04] MEDS: INSULIN LISPRO 100 UNIT/1 ML SQ SCH ×2 (09:10→13:14)
[2019-03-04 11:31] VITALS: O2SAT 93
--- NOTE | 2019-03-04 12:15 | P.SSS ---
Patient History Date of Service: 03/04/19 Reason for admission: Altered mental status History of Present Illness: This is a 53-year-old female with ADD/ADHD, bipolar disorder, chronic pain, depression, diabetes, hypertension and a history of pancreatitis admitted for decreased mental status. At the time of my exam, patient was very drowsy, unable to give me history and there is no family at bedside. Therefore was to the history obtained from chart review. Patient has been decreased mental status, unresponsiveness for the past 3 days and has been progressively go worsening. Apparently patient fell asleep on her screwdriver rental pole where she struck her right knee and hand numbness gets. She was seen by Dr. Call at that time. It seems that she has had previous episodes like this. She was evaluated by neurology a few months ago for similar symptoms once CT and EEG were negative. Possible causes for this could include medications, overnight dosing medications, benzodiazepine/narcotics, sepsis. In the ER, blood pressure was 108/51, heart rate of 62, respirations of 12, afebrile at 98, she was satting 85% on room air which improved to 95% on 2 L nasal cannula. Her labs were unremarkable except for lactic acid which was elevated at her head CT was without any acute abnormalities. Chest x-ray was with mild cardiomegaly. She was given flumazenil along with IV fluids. At the time of my exam, patient continued to be sleepy/drowsy. She was able to open her eyes but was still confused and a very sleepy. Allergies amoxicillin Allergy (Verified 09/03/17 11:26) Unknown aripiprazole [From Abilify] Allergy (Verified 09/03/17 11:26) Unknown meperidine [From Demerol] Allergy (Verified 09/03/17 11:26) Unknown Penicillins Allergy (Verified 09/03/17 11:26) Unknown pentazocine lactate [From Talwin] Allergy (Verified 09/03/17 11:26) Rash Home medications list reviewed: Yes Home Medications: Alprazolam [Xanax] 1 mg PO BID 06/09/18 Bupropion *Xl* [Wellbutrin XL*] 150 mg PO DAILY 06/09/18 Divalproex Sodium [Depakote] 1,500 mg PO BEDTIME 06/09/18 Insulin Degludec [Tresiba Flextouch U-100] 100 unit SQ DAILY 06/09/18 Insulin Lispro [Humalog] 15 unit SQ TID 06/09/18 OLANZapine [Zyprexa*] 10 mg PO BEDTIME 06/09/18 Apixaban [Eliquis] 5 mg PO BID 12/05/18 Atorvastatin Calcium [Lipitor] 20 mg PO BEDTIME 12/05/18 Furosemide [Lasix] 20 mg PO DAILY 12/05/18 Pregabalin [Lyrica] 150 mg PO BID 12/05/18 Carvedilol [Coreg*] 12.5 mg PO BID 03/03/19 Metformin HCl [Glucophage*] 500 mg PO BID 03/03/19 Omeprazole 20 mg PO DAILY 03/03/19 Pioglitazone [Actos*] 30 mg PO DAILY 03/03/19 Venlafaxine HCl [Venlafaxine HCl ER] 75 mg PO BEDTIME 03/03/19 Venlafaxine HCl [Venlafaxine HCl ER] 150 mg PO DAILY 03/03/19 - Past Medical/Surgical History Has patient received pneumonia vaccine in the past: No Diabetic: Yes -: Diabetes mellitus type 2 -: Hyperlipidemia -: Bipolar disorder, [facility] -: Diverticulosis -: Right DVT with bilateral PE -: Carpal tunnel syndrome -: History of suicidal ideation -: Asthma -: Obstructive sleep apnea -: Tobacco abuse -: Mild sleep apnea -: dvt- right leg -: Appendectomy -: Hysterectomy -: Left knee surgery -: Carpal tunnel repair of the left wrist -: Colon resection due to diverticulitis -: cervical laminectomy infusion, lumbar herniated disc repair -: I/D of the left toe Psychosocial/ Personal History: She has never been . She has 1 son. She does not work. She currently lives with her mother. - Family History Father -: Heart disease Mother -: Heart disease, Hypertension, Diabetes, Cancer Notes: breast cancer - Social History Smoking Status: Current some day smoker Alcohol use: Yes CD- Drugs: No Caffeine use: Yes Place of Residence: Home Review of Systems 10-point ROS is otherwise unremarkable Physical Examination - Vital Signs Temperature: 98.2 F Blood Pressure: 137/66 Pulse: 75 Respirations: 16 Pulse Ox (%): 98 - Physical Exam General: Alert, In no apparent distress, Oriented x3 HEENT: Atraumatic, PERRLA, Mucous membr. moist/pink, EOMI, Sclerae nonicteric Neck: Supple, 2+ carotid pulse no bruit, No LAD, Without JVD or thyroid abnormality Respiratory: Clear to auscultation bilaterally, Normal air movement Cardiovascular: Regular rate/rhythm, Normal S1 S2 Gastrointestinal: Normal bowel sounds, No tenderness Musculoskeletal: No tenderness Integumentary: No rashes Neurological: Normal gait, Normal speech, Normal strength at 5/5 x4 extr, Normal tone, Normal affect Lymphatics: No axilla or inguinal lymphadenopathy - Diagnosis (Problem(s)) (1) Altered mental status Current Visit: Yes Status: Acute Qualifiers: Altered mental status type: somnolence Qualified Code(s): R40.0 - Somnolence (2) CAD (coronary artery disease) Current Visit: No Status: Chronic Qualifiers: Coronary Disease-Associated Artery/Lesion type: [place] artery [place] vs. transplanted heart: [place] heart Associated angina: without angina Qualified Code(s): I25.10 - Atherosclerotic heart disease of [place] coronary artery without angina pectoris (3) CKD (chronic kidney disease) stage 3, GFR 30-59 ml/min Onset Date: 06/10/18 Current Visit: No Status: Chronic (4) DM2 (diabetes mellitus, type 2) Current Visit: No Status: Chronic Qualifiers: Diabetes mellitus shelter insulin use: without shelter use Diabetes mellitus complication status: with kidney complications Diabetes mellitus complication detail: with chronic kidney disease Chronic kidney disease stage : stage 3 (moderate) Qualified Code(s): E11.22 - Type 2 diabetes mellitus with diabetic chronic kidney disease; N18.3 - Chronic kidney disease, stage 3 ( moderate) (5) Bipolar disorder Onset Date: 02/14/16 Current Visit: No Status: Chronic Qualifiers: Active/Remission status: remission status unspecified Qualified Code(s): F31.9 - Bipolar disorder, unspecified (6) GERD (gastroesophageal reflux disease) Onset Date: 01/12/17 Current Visit: No Status: Chronic Qualifiers: Esophagitis presence: esophagitis presence not specified Qualified Code(s) : K21.9 - Gastro-esophageal reflux disease without esophagitis (7) Hyperlipidemia Onset Date: 02/14/16 Current Visit: No Status: Chronic Qualifiers: Hyperlipidemia type: unspecified (8) Hypertension Onset Date: 01/12/17 Current Visit: No Status: Chronic Qualifiers: Hypertension type: essential hypertension (9) Obesity Onset Date: 01/12/17 Current Visit: No Status: Chronic Qualifiers: Obesity type: unspecified obesity type Qualified Code(s): E66.9 - Obesity, unspecified Treatment Summary: -Mentation likely secondary to a combination of psych medications, pain medications/narcotics. -CT scan without any acute abnormalities -Resume home medications Prior to discharge, Patient's mentation returned back to baseline. Remained hemodynamically stable. Labs were also stable. Cultures remained negative. Diagnoses/treatment plan explained to patient, all questions answered and patient verbalized understanding. She was discharged home in safe and stable manner - Disposition Discharge Date: 03/04/19 Disposition: ROUTINE DISCHARGE Condition: GOOD Patient Discharge Instructions: Please follow up with the primary care physician in 2-3 days. Please return to the emergency room with worsening symptoms Diet: AHA Activity: Ad shikha Time Spent Managing Pts Care (In Minutes): 45
[2019-03-05] MEDS ORDERED: INSULIN DEGLUDEC SQ SCH (09:00)
== END 2019-03-04 15:12 | disposition home or self-care (01) ==
LOC: ER 07:24 → ERHOLD 11:09 → 4TH 14:12
PROVIDERS: ADMIT Family Medicine; ATTEND Family Medicine
DX: R41.82 Altered mental status, unspecified (principal); E86.0 Dehydration; I51.7 Cardiomegaly; I25.10 Atherosclerotic heart disease of native coronary artery without angina pectoris; E11.22 Type 2 diabetes mellitus with diabetic chronic kidney disease; I12.9 Hypertensive chronic kidney disease with stage 1 through stage 4 chronic kidney disease, or unspecified chronic kidney disease; N18.3 Chronic kidney disease, stage 3 (moderate); E78.5 Hyperlipidemia, unspecified; K21.9 Gastro-esophageal reflux disease without esophagitis; G47.33 Obstructive sleep apnea (adult) (pediatric); G89.29 Other chronic pain; F31.9 Bipolar disorder, unspecified; F98.8 Other specified behavioral and emotional disorders with onset usually occurring in childhood and adolescence; F17.200 Nicotine dependence, unspecified, uncomplicated; Z79.4 Long term (current) use of insulin; Z79.01 Long term (current) use of anticoagulants; Z79.899 Other long term (current) drug therapy; E66.9 Obesity, unspecified; Z86.718 Personal history of other venous thrombosis and embolism; Z86.711 Personal history of pulmonary embolism; Z87.19 Personal history of other diseases of the digestive system
CPT/HCPCS: 96361; 93005; 87040 ×2; 85025 ×2; 87086; 80048; 36415; 80320; 82140; 83735; 80329 ×2; 84100; 85610; 82962 ×5; 80076; 80164; 80307 ×8; 83605 ×2; 85730; 81003; 80053; 70450; 71045; 97112; 97116; 97161; 94760 ×2; 96374; 99291; J1650; J3475; J7030 ×3; G0378 ×2; 87088

== ENCOUNTER 2019-06-14 11:01 | Emergency (ER) | payer OTHER ==
--- OUTSIDE RECORDS SUMMARY | 2019-06-14 11:03 | XMS REPORT ---
:1965 [facility] Address [address] [place] [address] [place] [id number] Care Team Providers Name Role Phone Unavailable Unavailable Unavailable Problems This patient has no known problems. Allergies, Adverse Reactions, Alerts This patient has no known allergies or adverse reactions. Medications This patient has no known medications.
--- OUTSIDE RECORDS SUMMARY | 2019-06-14 11:03 | XMS REPORT ---
:1965 Author Organization [employer] Care Team Providers Name Role Phone Navneet Call Provider Role Unavailable Allergies, Adverse Reactions, Alerts Substance Reaction Event Type penicillin Info Not Available Drug Allergy Amoxicillin Info Not Available Drug Allergy Problems Problem Type Condition Code Onset Dates Condition Status Assessment Displaced longitudinal fracture of S82.021D Active right patella, subsequent encounter for closed fracture with routine healing Problem Arthritis of knee, left M17.12 Active Problem Arthritis of knee, right M17.11 Active Problem Acute pain of right knee M25.561 Active Assessment Pain in joint of right knee M25.561 Active Problem Primary osteoarthritis of left M17.12 Active knee Problem Primary osteoarthritis of right M17.11 Active knee Medications Medication Code Code Instructions Start End Status Dosage System Date Date Acetaminophen-C [facility] 88105060494 300-60 MG Active 1 tablet odeine #4 Orally every 6 as needed hrs protonix NDC 0 Active not defined Pravastatin ND 45209923831 40 MG Orally Active 1 tablet Sodium Once a day Trulicity NDC 0 Active not defined Depakote [facility] 60387691074 500 MG Orally Active 1 tablet Twice a day Lyrica [facility] [address]-30 Active not defined Tramadol HCl [facility] 31276241988 50 MG Orally Feb 27, Active 1 tablet Once a day PRN 2019 as needed PAIN Tresiba [facility] 39342195848 100 UNIT/ML Active as FlexTouch Subcutaneous directed Xanax [facility] [address]-59 Active not defined Bactrim DS [facility] [address]-06 Active not defined Eliquis [facility] 54891490377 5 MG Orally Active as directed Humalog KwikPen [facility] 68158557263 100 UNIT/ML Active as Subcutaneous directed Tylenol (#4) NDC 0 60/300 oral Active take 1 with codeine Q4hrs PRN tablet Venlafaxine HCl [facility] [address]-23 Active not ER defined Omeprazole [facility] 37137581815 20 MG Orally Active 1 capsule Once a day atorvastatin [facility] 81110862301 20mg Active 1 tablet by mouth at bedtime Olanzapine [facility] 96813717737 10 MG Orally Feb 25, Active 1 tablet Once a day 2017 Metformin HCl [facility] 78095172982 500 MG Orally Active 1 tablet Once a day with a meal BuPROPion HBr ND 0 Active not defined Results No Known Results Summary Purpose [employer] Submission
--- OUTSIDE RECORDS SUMMARY | 2019-06-14 11:03 | XMS REPORT ---
:1965 Author Organization [employer] Care Team Providers Name Role Phone Navneet Call Provider Role Unavailable Allergies No Known Allergies Problems Problem Type Condition Code Onset Dates Condition Status Problem Arthritis of knee, left M17.12 Active Problem Arthritis of knee, right M17.11 Active Problem Acute pain of right knee M25.561 Active Problem Primary osteoarthritis of left knee M17.12 Active Problem Primary osteoarthritis of right M17.11 Active knee Medications No Known Medications Results No Known Results Summary Purpose [employer] Submission
[2019-06-14] MEDS ORDERED: ONDANSETRON 4 MG/2 ML VIAL ONE (11:54)
[2019-06-14] MEDS ORDERED: MORPHINE 4 MG/ML SYR ONE (11:54)
[2019-06-14 12:13] LABS: Absolute Lymphocytes (CBC) 1.7 K/uL (0.7-4.9); Basophils % 0.4 % (0-1.3); Hematocrit 32.9 % (36.0-45.0); Lymphocytes % 17.9 % (15.3-44.8); MPV 9.2 fL (7.6-11.3); RBC Red Blood Cell Count 3.81 M/uL (3.86-4.86)
[2019-06-14 12:44] LABS: Albumin 3.1 g/dL (3.4-5.0); Bilirubin Total 0.3 mg/dL (0.2-1.0); Potassium 3.9 mmol/L (3.5-5.1); Protein, Total 6.6 g/dL (6.4-8.2)
--- NOTE | 2019-06-14 13:01 | RAD REPORT ---
EXAM DESCRIPTION: RAD - Foot Right 3 View - 06/14/2019 12:40 pm CLINICAL HISTORY: 5th right toe;Pain;Swelling COMPARISON: Foot Right 3 View dated 12/25/2017; Foot Right 3 View dated 05/31/2015 FINDINGS: Moderate soft tissue swelling is seen about the dorsum of the foot. Significant degenerati ve changes seen involving the first metatarsal-phalangeal joint. No fracture seen. No radiographic fi nding to indicate osteomyelitis is present.
[2019-06-14] MEDS ORDERED: CIPROFLOXACIN HCL 500 MG TAB ONE (14:09)
[2019-06-14] MEDS ORDERED: CLINDAMYCIN 600MG/D5W 600 MG/50 ML BAG IV ONE (14:10)
--- NOTE | 2019-06-14 14:59 | EDPHYS ---
Physician Documentation [facility] Name: Renetta Ramsay Age: 53 yrs Sex: Female : 1965 Arrival Date: 06/14/2019 Time: 11:03 Bed 16 Private MD: ED Physician Lenny Lopez HPI: 06/14 12:16 This 53 yrs old Female presents to ER via Ambulatory with complaints of pm1 Infected toe. 12:16 The patient presents with infection to right 5th toe. Context: The problem was pm1 sustained at an unknown location, resulted from an unknown cause, the patient can fully bear weight, the patient is able to ambulate. Onset: The symptoms/episode began/occurred 3 day(s) ago. Modifying factors: The symptoms are alleviated by nothing, the symptoms are aggravated by nothing. Associated signs and symptoms: Pertinent positives: swelling, pain, Pertinent negatives: calf tenderness, fever. Severity of symptoms: in the emergency department the symptoms are actually worse. The patient has experienced similar episodes in the past, and the symptoms today are exactly the same, to previous left toe infections. The patient has been recently seen by a physician: Dr. Moe. Yesterday in his office for the same complaint. Instructed the patient to report to the ER if she starts to experience any pain. Did not prescribe the patient any medications for pain or any antibiotics. Scheduled an appointment to reevaluate her right foot on June 24 since he will be out of town next week. 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 - Hysterectomy iw Historical: - Allergies: 11:52 Amoxicillin; iw 11:52 ARIPIPRAZOLE; iw 11:52 Demerol; iw 11:52 PENICILLINS; iw 11:52 pentazocine lactate; iw 11:52 Talwin; iw - Home Meds: 11:52 Trulicity 0.75 mg/0.5 mL subcutaneous pnij 0.5 mL once wkly [Active]; Lyrica 150 mg iw Oral 2 times per day [Active]; olanzapine 10 mg oral tab once daily [Active]; Tresiba FlexTouch U-100 100 unit/mL (3 mL) subcutaneous inpn 160 unit [Active]; metformin 500 mg Oral Tb24 1 tab 2 times per day [Active]; Depakote 500 mg Oral TbEC 1 tab 3 times per day [Active]; venlafaxine 150 mg oral cp24 1 cap once daily [Active]; venlafaxine 75 mg oral tab nightly [Active]; atorvastatin 40 mg oral tab 1 tab once daily [Active]; omeprazole 20 mg Oral cpDR 1 cap once daily [Active]; Bupropion Oral once daily [Active]; furosemide 20 mg Oral tab 1 tab once daily [Active]; - PMHx: 11:52 ADD/ADHD; Bipolar disorder; Chronic pain; Depression; Diabetes - NIDDM; High iw Cholesterol; Hypertension; osteomyelitis; Pancreatitis; - Immunization history:: Adult Immunizations not up to date. - Social history:: Smoking status: . - Ebola Screening: : Patient negative for fever greater than or equal to 101.5 degrees Fahrenheit, and additional compatible Ebola Virus Disease symptoms Patient denies exposure to infectious person Patient denies travel to an Ebola-affected area in the 21 days before illness onset No symptoms or risks identified at this time. ROS: 12:16 MS/extremity: Positive for pain, of the right fifth toe, Negative for deformity. pm1 12:16 Constitutional: Negative for fever, chills, and weight loss, Neck: Negative for injury, pain, and swelling, Cardiovascular: Negative for chest pain, palpitations, and edema, Respiratory: Negative for shortness of breath, cough, wheezing, and pleuritic chest pain, Abdomen/GI: Negative for abdominal pain, nausea, vomiting, diarrhea, and constipation, Back: Negative for injury and pain, Neuro: Negative for headache, weakness, numbness, tingling, and seizure. 12:16 Skin: Positive for cellulitis, of the right fifth toe. 12:16 All other systems are negative. Exam: 12:16 Constitutional: This is a well developed, well nourished patient who is awake, alert, pm1 and in no acute distress. Head/Face: Normocephalic, atraumatic. Neck: Trachea midline, no thyromegaly or masses palpated, and no cervical lymphadenopathy. Supple, full range of motion without nuchal rigidity, or vertebral point tenderness. No Meningismus. Chest/axilla: Normal chest wall appearance and motion. Nontender with no deformity. No lesions are appreciated. Cardiovascular: Regular rate and rhythm with a normal S1 and S2. No gallops, murmurs, or rubs. No pulse deficits. Respiratory: Lungs have equal breath sounds bilaterally, clear to auscultation and percussion. No rales, rhonchi or wheezes noted. No increased work of breathing, no retractions or nasal flaring. Abdomen/GI: Soft, non-tender, with normal bowel sounds. No distension or tympany. No guarding or rebound. No evidence of tenderness throughout. Back: No spinal tenderness. No costovertebral tenderness. Full range of motion. 12:16 Musculoskeletal/extremity: Extremities: grossly normal except: noted in the dorsum of right foot: mild swelling, no cellulitis present to any other portion of right foot except 5 th toe. 3 cm x 1 cm ulceration present to lateral aspect of right foot without any discharge or erythema. 12:16 Skin: Appearance: normal except for affected area, cellulitis, that is mild, on the right fifth toe. 12:16 Neuro: Orientation: is normal, Motor: is normal, moves all fours. Vital Signs: 11:53 BP 111 / 78; Pulse 97; Resp 16; Temp 98.2; Pulse Ox 97% on R/A; Weight 129.73 kg; iw Height 5 ft. 11 in. (180.34 cm); Pain 0/10; 12:35 BP 114 / 68; Pulse 88; Resp 16; Pulse Ox 96% ; bp 13:00 Temp 99.1(O); em 13:40 BP 128 / 88; Pulse 87; Resp 16; Pulse Ox 98% ; bp 15:21 BP 114 / 82; Pulse 79; Resp 16; Temp 98.2; Pulse Ox 98% ; bp 11:53 Body Mass Index 39.89 (129.73 kg, 180.34 cm) iw MDM: 11:38 Patient medically screened. pm1 13:48 Data reviewed: vital signs. Data interpreted: Pulse oximetry: on room air is 98 %. pm1 Interpretation: normal. 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 06/14 11:48 Order name: CBC with Diff; Complete Time: 12:29 pm1 06/14 11:48 Order name: CMP; Complete Time: 13:06 pm1 06/14 11:48 Order name: Foot Right 3 View XRAY; Complete Time: 13:06 pm1 06/14 11:48 Order name: IV Saline Lock; Complete Time: 12:16 pm1 Administered Medications: 12:05 Drug: morphine 4 mg Route: IVP; Site: left forearm; bp 12:36 Follow up: Response: Pain is decreased bp 12:05 Drug: Zofran 4 mg Route: IVP; Site: left forearm; bp 12:36 Follow up: Response: Nausea is decreased bp 14:05 Drug: Cipro 500 mg Route: PO; bp 15:23 Follow up: Response: No adverse reaction bp 14:05 Drug: Clindamycin 600 mg Route: IVPB; Infused Over: 30 mins; Site: left antecubital; bp 15:22 Follow up: IV Status: Completed infusion; IV Intake: 50ml bp Disposition: 16:42 Co-signature as Attending Physician, Lenny Lopez MD I agree with the assessment and kdr plan of care. Disposition: 06/14/19 14:58 Discharged to Home. Impression: Cellulitis of left lower limb - left foot and left 5th toe. - Condition is Stable. - Discharge Instructions: Cellulitis, Adult. - Prescriptions for Clindamycin HCl 300 mg Oral Capsule - take 1 capsule by ORAL route every 6 hours for 10 days; 40 capsule. Tylenol- Codeine #3 300-30 mg Oral Tablet - take 2 tablets by ORAL route every 6 hours As needed; 20 tablet. Cipro 500 mg Oral Tablet - take 1 tablet by ORAL route every 12 hours for 10 days; 20 tablet. - Medication Reconciliation Form, Thank You Letter, Antibiotic Education, Prescription Opioid Use form. - Follow up: Emergency Department; When: As needed; Reason: Worsening of condition. Follow up: Wei Moe DPM; When: 2 - 3 days; Reason: Recheck today's complaints, Continuance of care, Re-evaluation by your physician. - Problem is new. - Symptoms have improved. Signatures: Dispatcher [employer] EDMS Lenny Lopez MD MD kdr Jasmine Moses RN RN iw Shorty Diaz, [employer] pm1 Bobby Mo RN RN bp Corrections: (The following items were deleted from the chart) 14:59 14:58 06/14/2019 14:58 Discharged to Home. Impression: Cellulitis of left lower limb - pm1 left foot and left 5th toe. Condition is Stable. Forms are Medication Reconciliation Form, Thank You Letter, Antibiotic Education, Prescription Opioid Use. Follow up: Emergency Department; When: As needed; Reason: Worsening of condition. Follow up: Private Physician; When: 2 - 3 days; Reason: Recheck today's complaints, Continuance of care, Re-evaluation by your physician. Problem is new. Symptoms have improved. pm1 15:23 14:59 06/14/2019 14:58 Discharged to Home. Impression: Cellulitis of left lower limb - bp left foot and left 5th toe. Condition is Stable. Discharge Instructions: Cellulitis, Adult. Prescriptions for Clindamycin HCl 300 mg Oral Capsule - take 1 capsule by ORAL route every 6 hours for 10 days; 40 capsule, Tylenol-Codeine #3 300-30 mg Oral Tablet - take 2 tablets by ORAL route every 6 hours As needed; 20 tablet, Cipro 500 mg Oral Tablet - take 1 tablet by ORAL route every 12 hours for 10 days; 20 tablet. and Forms are Medication Reconciliation Form, Thank You Letter, Antibiotic Education, Prescription Opioid Use. Follow up: Emergency Department; When: As needed; Reason: Worsening of condition. Follow up: Wei Moe; When: 2 - 3 days; Reason: Recheck today's complaints, Continuance of care, Re-evaluation by your physician. Problem is new. Symptoms have improved. pm1
--- NOTE | 2019-06-14 14:59 | ER ---
Nurse's Notes [facility] Name: Renetta Ramsay Age: 53 yrs Sex: Female : 1965 Arrival Date: 06/14/2019 Time: 11:03 Bed 16 Private MD: Diagnosis: Cellulitis of left lower limb-left foot and left 5th toe Presentation: 06/14 11:46 Presenting complaint: Patient states: was seen at Dr. Moe's office Sunday, had iw blister on side of right foot that is healing, noticed some dampness between right 4th and 5th toe, pt states her pinky toe tuned black on and is now having pain and tenderness up her right ankle. Transition of care: patient was not received from another setting of care. Onset of symptoms was June 11, 2019. Risk Assessment: Do you want to hurt yourself or someone else? Patient reports no desire to harm self or others. Initial Sepsis Screen: Does the patient meet any 2 criteria? No. Patient's initial sepsis screen is negative. Does the patient have a suspected source of infection? No. Patient's initial sepsis screen is negative. Care prior to arrival: None. 11:46 Method Of Arrival: Ambulatory iw 11:46 Acuity: OLY 3 iw Triage Assessment: 11:35 General: Appears in no apparent distress. comfortable, obese, Behavior is cooperative, bp appropriate for age, anxious. Pain: Complains of pain in right foot. EENT: No deficits noted. Neuro: No deficits noted. Cardiovascular: No deficits noted. Respiratory: No deficits noted. GI: No signs and/or symptoms were reported involving the gastrointestinal system. : No signs and/or symptoms were reported regarding the genitourinary system. Derm: Wound noted right foot. Musculoskeletal: No deficits noted. 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 LMP N/A - Hysterectomy iw Historical: - Allergies: 11:52 Amoxicillin; iw 11:52 ARIPIPRAZOLE; iw 11:52 Demerol; iw 11:52 PENICILLINS; iw 11:52 pentazocine lactate; iw 11:52 Talwin; iw - Home Meds: 11:52 Trulicity 0.75 mg/0.5 mL subcutaneous pnij 0.5 mL once wkly [Active]; Lyrica 150 mg iw Oral 2 times per day [Active]; olanzapine 10 mg oral tab once daily [Active]; Tresiba FlexTouch U-100 100 unit/mL (3 mL) subcutaneous inpn 160 unit [Active]; metformin 500 mg Oral Tb24 1 tab 2 times per day [Active]; Depakote 500 mg Oral TbEC 1 tab 3 times per day [Active]; venlafaxine 150 mg oral cp24 1 cap once daily [Active]; venlafaxine 75 mg oral tab nightly [Active]; atorvastatin 40 mg oral tab 1 tab once daily [Active]; omeprazole 20 mg Oral cpDR 1 cap once daily [Active]; Bupropion Oral once daily [Active]; furosemide 20 mg Oral tab 1 tab once daily [Active]; - PMHx: 11:52 ADD/ADHD; Bipolar disorder; Chronic pain; Depression; Diabetes - NIDDM; High iw Cholesterol; Hypertension; osteomyelitis; Pancreatitis; - Immunization history:: Adult Immunizations not up to date. - Social history:: Smoking status: . - Ebola Screening: : Patient negative for fever greater than or equal to 101.5 degrees Fahrenheit, and additional compatible Ebola Virus Disease symptoms Patient denies exposure to infectious person Patient denies travel to an Ebola-affected area in the 21 days before illness onset No symptoms or risks identified at this time. Screenin:14 Abuse screen: Denies threats or abuse. Denies injuries from another. Nutritional bp screening: No deficits noted. Tuberculosis screening: No symptoms or risk factors identified. Fall Risk None identified. Assessment: 11:35 General: SEE TRIAGE NOTE. bp 12:36 Reassessment: ALL CURRENT ORDERS COMPLETED, RESULTS PENDING. bp 13:41 Reassessment: ALL CURRENT ORDERS COMPLETED, DISPO PENDING. bp 15:20 Reassessment: PT D/C HOME AMBULATORY, DX WITH CELLULITIS. bp Vital Signs: 11:53 BP 111 / 78; Pulse 97; Resp 16; Temp 98.2; Pulse Ox 97% on R/A; Weight 129.73 kg; iw Height 5 ft. 11 in. (180.34 cm); Pain 0/10; 12:35 BP 114 / 68; Pulse 88; Resp 16; Pulse Ox 96% ; bp 13:00 Temp 99.1(O); em 13:40 BP 128 / 88; Pulse 87; Resp 16; Pulse Ox 98% ; bp 15:21 BP 114 / 82; Pulse 79; Resp 16; Temp 98.2; Pulse Ox 98% ; bp 11:53 Body Mass Index 39.89 (129.73 kg, 180.34 cm) ED Course: 11:03 Patient arrived in ED. mr 11:33 Shorty Diaz, PRINTED CIRCUIT BOARDS LAMINATOR is PHCP. pm1 11:33 Lenny Lopez MD is Attending Physician. pm1 11:34 Bobby Mo, MARK is Primary Nurse. bp 11:48 Triage completed. iw 11:53 Arm band placed on. iw 12:05 Inserted saline lock: 20 gauge in left forearm, using aseptic technique. Blood bp collected. 12:14 Patient has correct armband on for positive identification. Placed in gown. Bed in low bp position. Call light in reach. Side rails up X2. 12:45 Foot Right 3 View XRAY In Process Unspecified. EDMS 14:59 Wei Moe DPM is Referral Physician. pm1 15:21 No provider procedures requiring assistance completed. IV discontinued, intact, bp bleeding controlled, No redness/swelling at site. Pressure dressing applied. Administered Medications: 12:05 Drug: morphine 4 mg Route: IVP; Site: left forearm; bp 12:36 Follow up: Response: Pain is decreased bp 12:05 Drug: Zofran 4 mg Route: IVP; Site: left forearm; bp 12:36 Follow up: Response: Nausea is decreased bp 14:05 Drug: Cipro 500 mg Route: PO; bp 15:23 Follow up: Response: No adverse reaction bp 14:05 Drug: Clindamycin 600 mg Route: IVPB; Infused Over: 30 mins; Site: left antecubital; bp 15:22 Follow up: IV Status: Completed infusion; IV Intake: 50ml bp Intake: 15:22 IV: 50ml; Total: 50ml. bp Outcome: 14:58 Discharge ordered by MD. pm1 15:22 Discharged to home ambulatory. bp 15:22 Condition: stable 15:22 Discharge instructions given to patient, Instructed on discharge instructions, follow up and referral plans. medication usage, wound care, Demonstrated understanding of instructions, follow-up care, medications, wound care, Prescriptions given X 3. 15:23 Patient left the ED. bp Signatures: Dispatcher [employer] EDMS Syl Nickerson Anders Jasmine, HEAD WORKER HEAD WORKER Jasmine Wright, RN RN iw Shorty Diaz, PRINTED CIRCUIT BOARDS LAMINATOR PRINTED CIRCUIT BOARDS LAMINATOR pm1 Bobby Mo, RN RN bp
[2019-06-14 15:56] VITALS: O2SAT 98
[2019-06-14 15:57] VITALS: BP 114/82; TEMP 98.2
== END 2019-06-14 15:23 | disposition home or self-care (01) ==
LOC: ER 11:01
DX: L03.031 Cellulitis of right toe (principal); I10 Essential (primary) hypertension; E11.9 Type 2 diabetes mellitus without complications; E78.00 Pure hypercholesterolemia, unspecified; F31.9 Bipolar disorder, unspecified; Z79.4 Long term (current) use of insulin; Z88.0 Allergy status to penicillin; Z88.1 Allergy status to other antibiotic agents; Z88.5 Allergy status to narcotic agent; Z88.8 Allergy status to other drugs, medicaments and biological substances
CPT/HCPCS: 96365; 85025; 36415; 80053; 73630; 96375; 99284; J2405

== ENCOUNTER 2019-06-20 15:48 | Inpatient (IN) | payer OTHER ==
--- OUTSIDE RECORDS SUMMARY | 2019-06-20 15:50 | XMS REPORT ---
:1965 [facility] Address [address] [place] [address] Dr. Hinds [address] [place] [id number] Care Team Providers Name Role Phone Unavailable Unavailable Unavailable Problems This patient has no known problems. Allergies, Adverse Reactions, Alerts This patient has no known allergies or adverse reactions. Medications This patient has no known medications.
--- OUTSIDE RECORDS SUMMARY | 2019-06-20 15:50 | XMS REPORT ---
[...] End Status Dosage System Date Date Acetaminophen-C [facility] 54118010772 300-60 MG Active 1 tablet odeine #4 Orally every 6 as needed hrs protonix NDC 0 Active not defined Pravastatin ND 26805837043 40 MG Orally Active 1 tablet Sodium Once a day Trulicity NDC 0 Active not defined Depakote [facility] 39595194833 500 MG Orally Active 1 tablet Twice a day Lyrica [facility] [address]-62 Active not defined Tramadol HCl [facility] 58713698138 50 MG Orally Feb 27, Active 1 tablet Once a day PRN 2019 as needed PAIN Tresiba [facility] 01764180880 100 UNIT/ML Active as FlexTouch Subcutaneous directed Xanax [facility] [address]-96 Active not defined Bactrim DS [facility] [address]-64 Active not defined Eliquis [facility] 23074880854 5 MG Orally Active as directed Humalog KwikPen [facility] 48895823248 100 UNIT/ML Active as Subcutaneous directed Tylenol (#4) NDC 0 60/300 oral Active take 1 with codeine Q4hrs PRN tablet Venlafaxine HCl [facility] [address]-20 Active not ER defined Omeprazole [facility] 19706270953 20 MG Orally Active 1 capsule Once a day atorvastatin [facility] 87671881357 20mg Active 1 tablet by mouth at bedtime Olanzapine [facility] 20638359260 10 MG Orally Feb 25, Active 1 tablet Once a day [address] [facility] 69051116927 500 MG Orally Active 1 tablet Once a day with a meal BuPROPion HBr ND 0 Active not defined Results No Known Results Summary Purpose eClinicalWorks Submission
--- OUTSIDE RECORDS SUMMARY | 2019-06-20 15:51 | XMS REPORT ---
[...] pain of right knee M25.561 Active Assessment Pain, joint, knee, right M25.561 Active Problem Primary osteoarthritis of left M17.12 Active knee Problem Primary osteoarthritis of right M17.11 Active knee Medications Medication Code Code Instructions Start End Status Dosage System Date Date protonix NDC 0 Active not defined Tresiba [facility] 81185954876 100 UNIT/ML Active as FlexTouch Subcutaneous directed Humalog KwikPen [facility] 73658836831 100 UNIT/ML Active as Subcutaneous directed Bactrim DS [facility] [address]-82 Active not defined Trulicity NDC 0 Active not defined Venlafaxine HCl [facility] [address]-68 Active not ER defined Tramadol HCl [facility] 24418401504 50 MG Orally Feb 27, Active 1 tablet Once a day PRN 2019 as needed PAIN Eliquis [facility] 16950312901 5 MG Orally Active as directed Xanax [facility] [address]-32 Active not defined Acetaminophen-C [facility] 09439916657 300-60 MG Active 1 tablet odeine #4 Orally every 6 as needed hrs BuPROPion HBr NDC 0 Active not defined Depakote ND 08788747307 500 MG Orally Active 1 tablet Twice a day Lyrica [facility] [address]-28 Active not defined Olanzapine ND 65447078626 10 MG Orally Feb 25, Active 1 tablet Once a day 2018 atorvastatin ND 54013607621 20mg Active 1 tablet by mouth at bedtime Tylenol (#4) NDC 0 60/300 oral Active take 1 with codeine Q4hrs PRN tablet Pravastatin [facility] 88407176394 40 MG Orally Active 1 tablet Sodium Once a day Metformin HCl [facility] 78626839089 500 MG Orally Active 1 tablet Once a day with a meal Omeprazole [facility] 24190436602 20 MG Orally Active 1 capsule Once a day Results No Known Results Summary Purpose eClinicalWorks Submission
--- NOTE | 2019-06-20 21:05 | RAD REPORT ---
EXAM DESCRIPTION: RAD - Foot Right 3 View - 06/20/2019 8:37 pm CLINICAL HISTORY: Gangrene right fifth toe, foot pain COMPARISON: Right foot June 14 FINDINGS: Soft tissue wound is seen along the medial margin of the fifth toe. No foreign body in the soft tissues. No bone destructive process of the fifth toe. Advanced degenerative change present at the first MTP joint similar to comparison. Soft tissue swelli ng over the dorsum is less pronounced. Small plantar spur is again noted. Tarsal-metatarsal degenerative change seen over the dorsum of the foot. IMPRESSION: Soft tissue wound is seen at the right fifth toe. Currently there is no bone destruction identifiable.
[2019-06-20 21:30] LABS: Absolute Lymphocytes (CBC) 2.1 K/uL (0.7-4.9); Basophils % 0.4 % (0-1.3); Hematocrit 32.3 % (36.0-45.0); Lymphocytes % 25.7 % (15.3-44.8); RBC Red Blood Cell Count 3.73 M/uL (3.86-4.86)
[2019-06-20 21:36] LABS: Albumin 3.1 g/dL (3.4-5.0); Bilirubin Total 0.3 mg/dL (0.2-1.0); Potassium 3.9 mmol/L (3.5-5.1); Protein, Total 6.9 g/dL (6.4-8.2)
--- NOTE | 2019-06-20 22:27 | ER ---
Nurse's Notes [facility] Name: Renetta Ramsay Age: 53 yrs Sex: Female : 1965 Arrival Date: 06/20/2019 Time: 15:51 Bed 23 Private MD: Diagnosis: Cellulitis of the Right Fifth Toe;Failed Outpatient Therapy Presentation: 06/20 16:20 Presenting complaint: Patient states: "I was here last Sunday because I have gangrene aa5 on my right little toe and they gave me antibiotics but it's gotten worse". Transition of care: patient was not received from another setting of care. Onset of symptoms was May 2019. Risk Assessment: Do you want to hurt yourself or someone else? Patient reports no desire to harm self or others. Initial Sepsis Screen: Does the patient meet any 2 criteria? No. Patient's initial sepsis screen is negative. Does the patient have a suspected source of infection? No. Patient's initial sepsis screen is negative. Care prior to arrival: None. 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 - Social history:: Smoking status: Patient uses tobacco products, smokes one-half pack cigarettes per day. - Ebola Screening: : No symptoms or risks identified at this time. Screenin:41 Abuse screen: Denies threats or abuse. Denies injuries from another. Nutritional wh screening: No deficits noted. Tuberculosis screening: No symptoms or risk factors identified. Fall Risk None identified. Assessment: 19:30 General: Appears in no apparent distress. Behavior is calm, cooperative, appropriate wh for age. Pain: Complains of pain in right fourth toe and right fifth toe Pain does not radiate. Pain currently is 5 out of 10 on a pain scale. Pain began 2-3 days ago. Neuro: Level of Consciousness is awake, alert, obeys commands, Oriented to person, place, time, situation, Appropriate for age. Cardiovascular: Capillary refill < 3 seconds. Respiratory: Airway is patent Respiratory effort is even, unlabored, Respiratory pattern is regular, symmetrical. GI: Abdomen is round non-distended. : No signs and/or symptoms were reported regarding the genitourinary system. EENT: No signs and/or symptoms were reported regarding the EENT system. Derm: Wound noted right fourth toe and right fifth toe. Musculoskeletal: Circulation, motion, and sensation intact. 20:41 Reassessment: Patient appears in no apparent distress at this time. No changes from previously documented assessment. Patient and/or family updated on plan of care and expected duration. Pain level reassessed. Patient is alert, oriented x 3, equal unlabored respirations, skin warm/dry/pink. Lab Phlebo at bedside trying to draw blood works. 21:11 Reassessment: NOtified Provider Pt with Hx of Anxiety Attacks, states she is feeling wh anxious. 21:30 Reassessment: Hospitalist at bedside explaining POC need for admit. 22:17 Reassessment: Patient appears in no apparent distress at this time. No changes from previously documented assessment. Patient and/or family updated on plan of care and expected duration. Pain level reassessed. Patient is alert, oriented x 3, equal unlabored respirations, skin warm/dry/pink. 23:10 Reassessment: Patient appears in no apparent distress at this time. Patient and/or cc3 family updated on plan of care and expected duration. Pain level reassessed. Patient is alert, oriented x 3, equal unlabored respirations, skin warm/dry/pink. 06/21 00:30 Reassessment: Patient appears in no apparent distress at this time. Patient and/or cc3 family updated on plan of care and expected duration. Pain level reassessed. Patient is alert, oriented x 3, equal unlabored respirations, skin warm/dry/pink. Room available in [facility], called for report but was told that the receiving nurse will just call me back. 00:35 Reassessment: MARK Olivas called and report handed over to her for continuity of cc3 care and management. 01:00 Reassessment: Patient appears in no apparent distress at this time. Patient and/or cc3 family updated on plan of care and expected duration. Pain level reassessed. Patient is alert, oriented x 3, equal unlabored respirations, skin warm/dry/pink. Patient left ER for admission vitally stable by stretcher escorted by atm technician Sindy. Patient states feeling better. Patient states symptoms have improved. Vital Signs: 06/20 16:22 BP 133 / 70; Pulse 87; Resp 18 S; Temp 98.5(TE); Pulse Ox 97% on R/A; Weight 127.01 kg aa5 (R); Height 5 ft. 11 in. (180.34 cm) (R); Pain 10/10; 20:42 BP 121 / 74; Pulse 74; Resp 18; Pulse Ox 96% on R/A; wh 22:19 BP 124 / 64; Pulse 74; Resp 18; Pulse Ox 95% ; wh 23:20 BP 130 / 67; Pulse 75; Resp 17 S; Pulse Ox 96% on R/A; cc3 06/21 00:35 BP 136 / 54; Pulse 77; Resp 18 S; Pulse Ox 96% on R/A; cc3 06/20 16:22 Body Mass Index 39.05 (127.01 kg, 180.34 cm) aa ED Course: 06/20 15:51 Patient arrived in ED. cl3 16:20 Arm band placed on. aa5 16:21 Triage completed. aa5 19:07 Abiodun Melendez is Primary Nurse. 19:51 Luan Rangel PA is PHCP. [facility] 19:51 Krunal Flores MD is Attending Physician. [facility] 20:41 Patient has correct armband on for positive identification. Bed in low position. Call light in reach. Side rails up X 1. Pulse ox on. NIBP on. 22:24 Smita Hoyos MD is Hospitalizing Provider. rashawn 23:50 Inserted saline lock: 22 gauge in right antecubital area, using aseptic technique. cc3 06/21 01:00 No provider procedures requiring assistance completed. Patient admitted, IV remains in cc3 place. Administered Medications: 06/20 23:50 Drug: vancoMYCIN 1 grams Route: IVPB; Infused Over: 2 hrs; Site: right antecubital; 06/21 00:00 Follow up: Response: No adverse reaction; IV Status: Infusion continued upon admission cc3 Outcome: 06/20 22:25 Decision to Hospitalize by Provider. rashawn 06/21 01:00 Admitted to Med/surg accompanied by yamile, via stretcher, room 205, with chart, Report cc3 called to MARK Olivas Condition: stable Instructed on the need for admit, Demonstrated understanding of instructions. 01:09 Patient left the ED. cc3 Signatures: Luan Rangel PA PA jmm Calderon, Audri, RN RN [email or web address] Abiodun Melendez Jeana Randle cc3 Yonatan Veliz cl3 Corrections: (The following items were deleted from the chart) 06/20 20:51 20:41 Reassessment: Patient appears in no apparent distress at this time. No changes wh from previously documented assessment. Patient and/or family updated on plan of care and expected duration. Pain level reassessed. Patient is alert, oriented x 3, equal unlabored respirations, skin warm/dry/pink. 21:10 20:41 Reassessment: Patient appears in no apparent distress at this time. No changes wh from previously documented assessment. Patient and/or family updated on plan of care and expected duration. Pain level reassessed. Patient is alert, oriented x 3, equal unlabored respirations, skin warm/dry/pink. Lab Phlebo at bedside trying to draw blood works
--- NOTE | 2019-06-20 22:27 | EDPHYS ---
Physician Documentation [facility] Name: Renteta Ramsay Age: 53 yrs Sex: Female : 1965 Arrival Date: 06/20/2019 Time: 15:51 Bed 23 Private MD: ED Physician Krunal Flores HPI: 06/20 20:07 This 53 yrs old Female presents to ER via Ambulatory with complaints of Toe jmm Injury. 20:07 The patient presents with pain, that is acute. The complaints affect the right foot. jmm Onset: The symptoms/episode began/occurred gradually, 2 week(s) ago. Modifying factors: The symptoms are alleviated by nothing, the symptoms are aggravated by nothing. This is a 53 year old female with a history of add/adhd, bipolar, dm, chronic pain, that presents to the ED with complaints of toe pain and swelling. Patient was prescribed oral antibiotics with no relief of symptoms. . [employer]: 16:22 LMP N/A - Hysterectomy aa5 Historical: - Allergies: 16:22 Amoxicillin; aa5 16:22 Demerol; aa5 16:22 ARIPIPRAZOLE; aa5 16:22 PENICILLINS; aa5 16:22 pentazocine lactate; aa5 16:22 Talwin; aa5 - PMHx: 16:22 ADD/ADHD; Bipolar disorder; Chronic pain; Depression; Diabetes - NIDDM; High aa5 Cholesterol; Hypertension; osteomyelitis; Pancreatitis; - PSHx: 16:23 Hysterectomy; aa5 - Immunization history:: Immunization history: Flu vaccine is not up to date. - Social history:: Smoking status: Patient uses tobacco products, smokes one-half pack cigarettes per day. - Ebola Screening: : No symptoms or risks identified at this time. ROS: 20:07 Constitutional: Negative for fever, chills, and weight loss, Cardiovascular: Negative jmm for chest pain, palpitations, and edema, Respiratory: Negative for shortness of breath, cough, wheezing, and pleuritic chest pain. 20:07 MS/extremity: Positive for erythema, pain. 20:07 All other systems are negative. Exam: 20:07 Constitutional: This is a well developed, well nourished patient who is awake, alert, jmm and in no acute distress. Head/Face: atraumatic. Eyes: EOMI, no conjunctival erythema appreciated ENT: Moist Mucus Membranes Neck: Trachea midline, Supple Chest/axilla: Normal chest wall appearance and motion. Cardiovascular: Regular rate and rhythm. No edema appreciated Respiratory: Normal respirations, no respiratory distress appreciated Abdomen/GI: Non distended, soft Back: Normal ROM 20:07 Skin: erythema noted to the right lateral edge of the foot. 5th toe is necrotic. . 20:07 Neuro: Orientation: is normal, Mentation: is normal, Memory: is normal. 20:07 Psych: Behavior/mood is pleasant, cooperative. Vital Signs: 16:22 BP 133 / 70; Pulse 87; Resp 18 S; Temp 98.5(TE); Pulse Ox 97% on R/A; Weight 127.01 kg aa5 (R); Height 5 ft. 11 in. (180.34 cm) (R); Pain 10/10; 20:42 BP 121 / 74; Pulse 74; Resp 18; Pulse Ox 96% on R/A; wh 22:19 BP 124 / 64; Pulse 74; Resp 18; Pulse Ox 95% ; wh 23:20 BP 130 / 67; Pulse 75; Resp 17 S; Pulse Ox 96% on R/A; cc3 06/21 00:35 BP 136 / 54; Pulse 77; Resp 18 S; Pulse Ox 96% on R/A; cc3 06/20 16:22 Body Mass Index 39.05 (127.01 kg, 180.34 cm) aa5 MDM: 06/20 19:56 Patient medically screened. bia 22:23 Data reviewed: vital signs, nurses notes. Counseling: I had a detailed discussion with [facility] the patient and/or guardian regarding: the historical points, exam findings, and any diagnostic results supporting the discharge/admit diagnosis, lab results, radiology results, the need for further work-up and treatment in the hospital. ED course: I discussed the patient with Dr. Hoyos and Dr. Hernandez whom will admit patient and consult on admission. . 06/20 20:04 Order name: CBC with Diff [facility] 06/20 20:04 Order name: CMP [facility] 06/20 20:04 Order name: CRP [facility] 06/20 20:04 Order name: Sed Rate [facility] 06/20 20:05 Order name: Lactate [facility] 06/20 20:05 Order name: Procalcitonin [facility] 06/20 20:05 Order name: Blood Culture Adult (2) [facility] 06/20 20:05 Order name: Foot Right 3 View XRAY [facility] 06/20 21:28 Order name: Lactate; Complete Time: 21:30 EDMS 06/20 21:35 Order name: CBC with Automated Diff; Complete Time: 21:57 EDMS 06/20 21:36 Order name: Comprehensive Metabolic Panel; Complete Time: 21:38 EDMS 06/20 21:36 Order name: C-Reactive Protein; Complete Time: 21:38 EDMS 06/20 21:50 Order name: Sedimentation Rate, Westergren; Complete Time: 21:57 EDMS 06/20 21:59 Order name: Procalcitonin; Complete Time: 22:18 EDFL 06/20 20:04 Order name: Saline Lock; Complete Time: 20:12 [facility] 06/20 21:06 Order name: RAD; Complete Time: 21:16 EDMS Administered Medications: 23:50 Drug: vancoMYCIN 1 grams Route: IVPB; Infused Over: 2 hrs; Site: right antecubital; 06/21 00:00 Follow up: Response: No adverse reaction; IV Status: Infusion continued upon admission cc3 Disposition: 06/20/19 22:25 Hospitalization ordered by Smita Hoyos for Observation. Preliminary diagnosis are Cellulitis of the Right Fifth Toe, Failed Outpatient Therapy. - Bed requested for Telemetry/MedSurg (observation). - Status is Observation. cc3 - Condition is Stable. - Problem is an acute exacerbation. - Symptoms are unchanged. UTI on Admission? No Addendum: 06/23/2019 10:38 Co-signature as Attending Physician, Krunal Flores MD I agree with the assessment and c crandall plan of care. Signatures: Dispatcher [employer] [facility] Krunal Flores MD MD cha Mickail, Joel, PA PA jmm Calderon, Audri, RN RN Eileen Grigsby RN RN cg Habalo, Winsy wh Cordel, Charlene cc3 Corrections: (The following items were deleted from the chart) 06/20 23:59 22:25 Hospitalization Ordered by Smita Hoyos MD for Observation. Preliminary cg diagnosis is Cellulitis of the Right Fifth Toe; Failed Outpatient Therapy. Bed requested for Telemetry/MedSurg (observation). Status is Observation. Condition is Stable. Problem is an acute exacerbation. Symptoms are unchanged. UTI on Admission? No. jmm 06/21 01:09 06/20 23:59 06/20/2019 22:25 Hospitalization Ordered by Smita Hoyos MD for cc3 Observation. Preliminary diagnosis is Cellulitis of the Right Fifth Toe; Failed Outpatient Therapy. Bed requested for Telemetry/MedSurg (observation). Status is Observation. Condition is Stable. Problem is an acute exacerbation. Symptoms are unchanged. UTI on Admission? No. cg
[2019-06-20] MEDS ORDERED: ACETAMINOPHEN 500 MG TAB PO PRN (23:46)
[2019-06-20] MEDS ORDERED: ONDANSETRON 4 MG/2 ML VIAL IV PRN (23:46)
[2019-06-20] MEDS ORDERED: ALBUTEROL 2.5 MG/3 ML NEB SOL NEB PRN (23:46)
[2019-06-20] MEDS ORDERED: GUAIFENESIN/DM 5 ML UCUP PO PRN (23:51)
[2019-06-20] MEDS ORDERED: HYDRALAZINE HCL 20 MG/ML VIAL IV PRN (23:51)
[2019-06-20] MEDS ORDERED: VANCOMYCIN 1 GM/VIAL ONE (23:52)
[2019-06-20] MEDS ORDERED: NA CHLORIDE 0.9% 250 ML ONE (23:53)
--- NOTE | 2019-06-21 00:33 | HP ---
Date of Admission: 06/20/2019 Presenting Complaint: Right foot gangrene. History Of Present Illness: Ms. Renetta Ramsay is a 53-year-old female with obesity, diabetes mellitus, hy pertension, history of DVT and PE in the past, who presented because of worsening gangrene and blacki sh discoloration on the right fifth toe. The patient states she has been having eschar also over the base of the right great toe and was following with her financial reporting director, Dr. Moe, but developed worsenin g discharge on the right fifth toe since the last couple of days. She has made attempts to reach pod iatrist. There, was told he was not in town and she has come to the ED today. She admits to some fe carina and chills. She denies any chest pain, shortness of breath. She admits to some chest congestion and cough. She states she has also noticed pain and swelling over the right leg extending to the ca lf area. She has amputations of her great and first 2 digits of the left foot done by her financial reporting director 1 year ago. She admits to a history of diabetic neuropathy. Past Medical History: Significant for hypertension, diabetes mellitus, hyperlipidemia, history of DV T, history of chronic anticoagulation, history of bipolar disorder, history of chronic pain, history of depression, history of pancreatitis in the past. Allergies: INCLUDE AMOXICILLIN, ABILIFY, MEPERIDINE, PENICILLIN, AND PENTAZOCINE. Home Medications: From records include Tresiba, Humalog, Zyprexa, Protonix, Lyrica, Eliquis 5 b.i.d. , Lipitor, furosemide, Xanax, bupropion as well as Depakote. Family History: Significant for coronary artery disease. Social History: Patient admits to half a pack tobacco use history. She denies any alcohol use. She lives with her mother. She denies any illicit drug use. Review of Systems: All systems reviewed x10 were negative except as mentioned above. Physical Examination: GENERAL: Obese, middle-aged female, calm, sitting up in bed. HEENT: Head is atraumatic, normocephalic. Pupils equal, reactive to light. NECK: No JVD. No carotid bruit. RESPIRATORY: Mild coarse crepitations bilaterally with few expiratory wheezes. CARDIOVASCULAR: S1, S2. Rate and rhythm regular. GI: Abdomen full, soft, nontender. Bowel sounds positive. EXTREMITIES: No pedal edema over the left lower extremity and status post amputated 2 digits noted. Healed base. Right lower extremity with 1+ edema. Erythema noted over the anterior lower extremity mcrae area with mild tenderness extending down to the toes. Dark eschar noted on the plantar bed of the first great toe with necrotic gangrene extending over the whole of the fifth toe digit. Area of open wound between the fourth and fifth interdigital cleft. NEURO: Patient is alert, oriented. Cranial nerves 2 through 12 grossly intact. Laboratory Data: WBC 8.0, hemoglobin 11, platelets 202, neutrophils 65%. ESR of 65. Sodium 141, po tassium 3.9, creatinine 1.04, baseline of 0.7, bicarb 30, glucose of 123, calcium 8.7, albumin of 3.1 . X-ray of the right foot shows soft tissue wound seen at the right foot toe. Currently, no bone de struction identified. Advanced degenerative changes at the first MTP joints. Impression: 1.Right fifth toe gangrene, right lower extremity cellulitis, diabetes mellitus. 2.Hypertension. 3.History of deep venous thrombosis, on chronic anticoagulation. Plan: 1.We will admit patient. My suspicion is for the following, right foot gangrene. We will start pat ient on empiric antibiotics with vancomycin. We will consult Wound Care. We will also consult radha calderon's financial reporting director, Dr. Moe to consider further evaluation including option of possible amputation. W e will do gentle IV fluid hydration for now. We will hold diuretics. 2.Diabetes mellitus. Continue home regimen. We will do Accu-Cheks with sliding scale. 3.Hypertension. We will continue home medications. IV hydralazine p.r.n. 4.History of deep venous thrombosis. Patient on Eliquis. Continue dose. 5.Deep venous thrombosis prophylaxis. Patient on Eliquis. 6.Advance directive: The patient is a full code. Total time spent in review of record, discussion with patient, and evaluation greater than 60 minutes . EO/MODL Voice ID: [id number]
[2019-06-21] MEDS: MORPHINE 2 MG/ML SYR IV PRN ×4 (01:41→21:48)
[2019-06-21] MEDS: NA CHLORIDE 0.9% 1,000 ML IV SCH (01:41)
[2019-06-21 01:44] VITALS: BMI 38.8
[2019-06-21] MEDS: IPRATROPIUM BROM 0.5MG/2.5ML NEB SCH ×2 (02:00→08:00)
[2019-06-21] MEDS: ALPRAZOLAM 1 MG TABLET PO SCH ×3 (02:48→21:00)
[2019-06-21 05:26] LABS: Absolute Lymphocytes (CBC) 1.8 K/uL (0.7-4.9); Basophils % 0.4 % (0-1.3); Hematocrit 31.4 % (36.0-45.0); MPV 9.1 fL (7.6-11.3); RBC Red Blood Cell Count 3.61 M/uL (3.86-4.86)
[2019-06-21 05:53] LABS: Albumin 2.9 g/dL (3.4-5.0); Bilirubin Total 0.2 mg/dL (0.2-1.0); Potassium 3.5 mmol/L (3.5-5.1); Protein, Total 6.4 g/dL (6.4-8.2)
[2019-06-21] MEDS: INSULIN -REGULAR HUMAN 50 UNIT/0.5 ML ML SQ SCH ×4 (07:30→20:43)
[2019-06-21] MEDS ORDERED: IPRATROPIUM BROM 0.5MG/2.5ML NEB PRN (08:53)
[2019-06-21] MEDS ORDERED: APIXABAN 2.5 MG TABLET PO SCH (09:00)
[2019-06-21] MEDS: INSULIN DEGLUDEC 100 UNIT SQ SCH (09:00)
[2019-06-21] MEDS ORDERED: HOME MED 1 EA UNK (Omeprazole [Omeprazole] 20 MG) PO SCH (09:00)
[2019-06-21] MEDS ORDERED: Pharmacy Consult 1 EA XX PRN (09:31)
[2019-06-21] MEDS: NICOTINE 21 MG/PAT TD SCH (09:44)
--- NOTE | 2019-06-21 09:44 | P.PN ---
Subjective Date of Service: 06/21/19 (hospitalist) Chief Complaint: Gangrenous toe Patient now eyes any pain admitted with gangrenous pro and swelling on the right lateral aspect of for foot patient denies any pain scheduled to have an MRI done she has also had left-sided toes amputated history of diabetes presume peripheral vascular disease Review of Systems Unremarkable Physical Examination - Vital Signs Temperature: 97.4 F Blood Pressure: 128/69 Pulse: 76 Respirations: 20 Pulse Ox (%): 93 - Physical Exam General: Alert, In no apparent distress, Oriented x3 Respiratory: Clear to auscultation bilaterally Musculoskeletal: Other (Gangrenous toe on the right for 2 with swelling on the adjacent right lateral aspect of the foot) - Studies Laboratory Data (last 24 hrs) 06/20/19 20:53: Sodium 141, Potassium 3.9, BUN 12, Creatinine 1.04, Glucose 123 H, Total Bilirubin 0.3, AST 18, ALT 24, Alkaline Phosphatase 95 06/20/19 20:53: WBC 8.0 D, Hgb 11.0 L, Hct 32.3 L, Plt Count 202 Assessment & Plan - Problems (Diagnosis) (1) Gangrene of toe of right foot Current Visit: Yes Status: Acute Plan: Patient is 53 years of age admitted with the right gangrenous toe no evidence of obvious sepsis start patient on vancomycin and levofloxacin probably going to need an amputation general surgery has been console did MRI of the foot has been ordered labs reviewed cultures pending pro calcitonin level is negative XRay rev
[2019-06-21] MEDS: METFORMIN HCL 500 MG TAB PO SCH ×2 (09:45→20:42)
[2019-06-21] MEDS: PIOGLITAZONE 15 MG TAB PO SCH (09:45)
[2019-06-21] MEDS: carvediloL 12.5 MG TAB PO SCH ×2 (09:45→20:42)
[2019-06-21] MEDS: GUAIFENESIN 600 MG SA TAB PO SCH ×2 (09:45→20:41)
[2019-06-21] MEDS: PREGABALIN 75 MG CAP PO SCH ×2 (09:46→20:52)
[2019-06-21] MEDS: BUPROPION HCL XL 150 MG TAB PO SCH (09:46)
[2019-06-21 10:30] LABS: Urine Appearance CLEAR; Urine Bilirubin NEGATIVE (NEG); Urine Blood NEGATIVE (NEG); Urine Color YELLOW; Urine Glucose NEGATIVE (NEG); Urine Protein NEGATIVE (NEG); Urine Urobilinogen 0.2 mg/dL (0.2-1.0)
[2019-06-21] MEDS: Levofloxacin 750mg IV 750 MG/150 ML BAG IV SCH (10:53)
--- NOTE | 2019-06-21 11:31 | CON ---
Reason For Consultation: Right fifth toe infection. History Of Present Illness: Patient is a 53-year-old female with multiple medical problems, who has been seeing Dr. Moe as an outpatient of discoloration on the right big toe; however, over the last week or so, she had worsening of the 5th toe and she noted increasing darkness, redness, swelling on the lateral aspect of the foot, and she came to the emergency room, was admitted for further work up. She is awake and alert. She has neuropathy. No fever or chills. No groin pain. She does have so me pain and swelling over the right leg extending to the calf area. She has had amputation on her le ft foot about a year ago due to diabetic neuropathy, Review of Systems: Otherwise unremarkable. Past Medical History: Significant for hypertension, diabetes, hyperlipidemia, DVT, chronic anticoagu lation, bipolar disorder, chronic pain, depression, pancreatitis. Allergies: REVIEWED AND INCLUDE AMOXICILLIN, MEPERIDINE, PENICILLIN, PENTAZOCINE, ABILIFY. Medications: She is on Eliquis at home. Social History: She smokes half pack a day, she has been counseled. She does not drink alcohol. Family History: Significant for coronary artery disease. Physical Examination: Vital Signs: Currently stable. She is afebrile. General: She is awake, alert, and oriented x3. Head and Neck: Cranial nerves 2 through 12 are grossly within normal limits. No neck masses. No JV D. Throat clear. Neck is supple. Chest: Clear. Heart: S1 and S2. Abdomen: Soft. Extremities: Slightly diminished dorsalis pedis and posterior tibial pulses. She has dry gangrene o f the right fifth toe in the proximal and the distal phalanx, and there is erythema, edema, redness, and some blistering of the skin on the right lateral foot extending to about the midfoot. There may be infection deep in the tissues, but it is hard to tell. Laboratory Data: Reviewed. White count is normal; however, sedimentation rate is 65. Chemistry rev iewed. Her procalcitonin and lactic acid are normal. Electrolytes reviewed. X-ray of the right monique t reviewed as well and does not show any bony destruction on the right fifth toe. Assessment: A 53-year-old female with multiple medical problems with dry gangrene of the right fifth toe with right diabetic foot infection, the extent of which is unclear with some peripheral vascular disease. Recommendations: At this time, continue IV antibiotics. We will get MRI of the foot to evaluate if there is osteomyelitis in the metatarsal bone I believe there is clinically and if there is a deeper abscess or a source of infection that we are unable to clinically assess. Also we will get an arteri al Doppler to see if she needs any intervention to improve the blood flow to her lower extremities. After that is done, I will make further recommendations. The nursing staff was able to contact Dr. Mtz late and he will be in town tomorrow and will take over the care of this patient at that time. I cindy l follow this patient until then. JEWEL/TESHA Voice ID: [id number] Report ID: [id number]
[2019-06-21 11:36] LABS: Urine Microscopic Reflex NO UMIC
[2019-06-21] MEDS ORDERED: PNEUMOCOCCAL VACCINE 0.5 ML IMVAC ONE (13:00)
[2019-06-21] MEDS ORDERED: INFLUENZA VACCINE (for 3y+) 0.5 ML DOSE IMVAC ONE (13:00)
[2019-06-21] MEDS ORDERED: VANCOMYCIN 3 GM in NA CHLORIDE 0.9% 500 ML IVPB ONE (20:00)
[2019-06-21] MEDS ORDERED: VANCOMYCIN 1 GM/VIAL ONE (20:12)
[2019-06-21] MEDS ORDERED: NA CHLORIDE 0.9% 500 ML ONE (20:26)
[2019-06-21] MEDS: ATORVASTATIN 20 MG TAB PO SCH (20:41)
[2019-06-21] MEDS: DIVALPROEX DR 500MG TAB PO SCH (20:42)
--- NOTE | 2019-06-21 20:44 | RAD REPORT ---
EXAM DESCRIPTION: US - Lower Extremity Arterial Bilat - 06/21/2019 8:37 pm CLINICAL HISTORY: Leg swelling and pain. Toe wound COMPARISON: None FINDINGS: Waveform of the left common femoral, superficial femoral, popliteal, dorsalis pedis and po sterior tibial arteries are triphasic Waveforms of the right common femoral, right superficial femoral and right popliteal arteries are tri phasic. The waveforms of the right posterior tibial and right dorsalis pedis arteries are biphasic A significant stenosis/occlusion not seen IMPRESSION: Mild right lower extremity arterial disease Unremarkable ultrasound arteries left lower extremity
[2019-06-22] MEDS: PANTOPRAZOLE 40MG TABLET PO SCH (05:32)
[2019-06-22] MEDS: NA CHLORIDE 0.9% 1,000 ML IV SCH (07:07)
[2019-06-22] MEDS: INSULIN -REGULAR HUMAN 50 UNIT/0.5 ML ML SQ SCH ×4 (07:30→21:13)
[2019-06-22] MEDS ORDERED: VANCOMYCIN 2 GM in NA CHLORIDE 0.9% 500 ML IVPB SCH (08:00)
[2019-06-22] MEDS: INSULIN DEGLUDEC 100 UNIT SQ SCH (08:37)
[2019-06-22] MEDS: PIOGLITAZONE 15 MG TAB PO SCH ×2 (08:37→10:13)
[2019-06-22] MEDS: METFORMIN HCL 500 MG TAB PO SCH ×3 (08:37→21:05)
[2019-06-22] MEDS: carvediloL 12.5 MG TAB PO SCH ×3 (08:37→21:05)
[2019-06-22] MEDS: PREGABALIN 75 MG CAP PO SCH ×3 (08:37→21:04)
[2019-06-22] MEDS: GUAIFENESIN 600 MG SA TAB PO SCH ×3 (08:38→21:03)
[2019-06-22] MEDS: BUPROPION HCL XL 150 MG TAB PO SCH ×2 (08:38→10:14)
[2019-06-22] MEDS: ALPRAZOLAM 1 MG TABLET PO SCH ×3 (08:38→21:00)
--- NOTE | 2019-06-22 09:32 | P.PN ---
Subjective Date of Service: 06/22/19 Chief Complaint: Gangrenous toe No change patient is still complaining of discomfort in her right foot no respiratory complaint Review of Systems General: Weakness Musculoskeletal: Foot Pain Physical Examination - Vital Signs Temperature: 97.0 F Blood Pressure: 125/60 Pulse: 65 Respirations: 16 Pulse Ox (%): 90 - Physical Exam General: Alert, In no apparent distress, Oriented x3 Respiratory: Clear to auscultation bilaterally Cardiovascular: No edema, Normal S1 S2 Musculoskeletal: Other (Right toe is still necrotic she does have considerable amount of infection in the lateral aspect of her right foot no change) - Studies Microbiology Data (last 24 hrs): 06/20/19 20:53 Blood - Blood Anaerobic Blood Culture - Final Assessment & Plan - Problems (Diagnosis) (1) Gangrene of toe of right foot Current Visit: Yes Status: Acute Plan: No change in patient's condition continue with IV antibiotics cultures are so far negative Gram stain of the wound is pending MRI pending
[2019-06-22] MEDS: NICOTINE 21 MG/PAT TD SCH (09:45)
[2019-06-22] MEDS: Levofloxacin 750mg IV 750 MG/150 ML BAG IV SCH (09:46)
[2019-06-22] MEDS ORDERED: INFLUENZA VACCINE (for 3y+) 0.5 ML DOSE IMVAC ONE (10:00)
--- NOTE | 2019-06-22 10:09 | P.CNS ---
Date of Consult: 06/22/19 Reason for Consult: gangrenous right fifth digit Chief Complaint: Gangrenous toe Allergies amoxicillin Allergy (Verified 09/03/17 11:26) Unknown aripiprazole [From Abilify] Allergy (Verified 09/03/17 11:26) Unknown meperidine [From Demerol] Allergy (Verified 09/03/17 11:26) Unknown Penicillins Allergy (Verified 09/03/17 11:26) Unknown pentazocine lactate [From Talwin] Allergy (Verified 09/03/17 11:26) Rash Home Medications: Bupropion *Xl* [Wellbutrin XL*] 150 mg PO DAILY 06/09/18 Divalproex Sodium [Depakote] 1,500 mg PO BEDTIME 06/09/18 Insulin Degludec [Tresiba Flextouch U-100] 100 unit SQ DAILY 06/09/18 Insulin Lispro [Humalog] 15 unit SQ ACHS 06/09/18 OLANZapine [Zyprexa*] 10 mg PO BEDTIME 06/09/18 Apixaban [Eliquis *] 5 mg PO BID 12/05/18 Atorvastatin Calcium [Lipitor*] 40 mg PO DAILY 12/05/18 Furosemide [Lasix*] 20 mg PO DAILY 12/05/18 Pregabalin [Lyrica*] 150 mg PO BID 12/05/18 Metformin HCl [Glucophage*] 500 mg PO BID 03/03/19 Omeprazole 20 mg PO DAILY 03/03/19 Venlafaxine HCl [Venlafaxine HCl ER] 75 mg PO BEDTIME 03/03/19 Venlafaxine HCl [Venlafaxine HCl ER] 150 mg PO DAILY 03/03/19 Dulaglutide [Trulicity] 0.75 mg SQ DAILY 06/21/19 - Past Medical/Surgical History Diabetic: Yes -: Diabetes mellitus type 2 -: Hyperlipidemia -: Bipolar disorder, [facility]-Dr[facility] Grove -: Diverticulosis -: Right DVT with bilateral PE -: Carpal tunnel syndrome -: History of suicidal ideation -: Asthma -: Obstructive sleep apnea -: Tobacco abuse -: Mild sleep apnea -: dvt- right leg -: Appendectomy -: Hysterectomy -: Left knee surgery -: Carpal tunnel repair of the left wrist -: Colon resection due to diverticulitis -: cervical laminectomy infusion, lumbar herniated disc repair -: I/D of the left toe Psychosocial/ Personal History: She has never been . She has 1 son. She does not work. She currently lives with her mother. - Family History Father Medical History: Heart disease Mother Medical History: Heart disease, Hypertension, Diabetes, Cancer Notes: breast cancer - Social History Smoking Status: Current every day smoker Alcohol use: No CD- Drugs: No Caffeine use: Yes Place of Residence: Home Review of Systems 10-point ROS is otherwise unremarkable Physical Examination Temp Pulse Resp BP Pulse Ox 97.0 F 65 16 125/60 90 L 06/22/19 09:32 06/22/19 09:32 06/22/19 09:32 06/22/19 09:32 06/22/19 09:32 General: Alert, In no apparent distress, Oriented x3 Cardiovascular: No edema, Normal pulses Capillary refill: <2 Seconds Musculoskeletal: No clubbing, No swelling, No contractures, No erythema, No tenderness, No warmth Integumentary: Other (right fifth toe demonstrates dry gangrene with no erythem or foul odor noted. lesion lateral aspect of right fifth metatarsal with dried bullous lesion and proximal ecchymosis noted. No drainage noted. Area does not probe.) Neurological: Abnormal sensation - Problems (1) Gangrene of toe of right foot Current Visit: Yes Status: Acute (2) Diabetic foot ulcer Onset Date: 08/23/17 Current Visit: No Status: Acute Qualifiers: Diabetic foot ulcer location: toe Conclusions/Impression: right fifth digit is stable. Will apply betadine wet to dry to the area. Awaiting mri of right foot to rule out further disease. Will keep patient npo with probable right fifth digit amputation tomorrow Physician Review: Patient Assessed, Agree with Above Assessment and Plan
[2019-06-22] MEDS: MORPHINE 2 MG/ML SYR IV PRN (12:17)
[2019-06-22] MEDS: ATORVASTATIN 20 MG TAB PO SCH (21:04)
[2019-06-22] MEDS: DIVALPROEX DR 500MG TAB PO SCH (21:04)
[2019-06-23] MEDS: VANCOMYCIN 2 GM in NA CHLORIDE 0.9% 500 ML IVPB SCH ×2 (01:54→21:27)
[2019-06-23] MEDS: PANTOPRAZOLE 40MG TABLET PO SCH (05:41)
[2019-06-23] MEDS: MORPHINE 2 MG/ML SYR IV PRN (08:39)
[2019-06-23] MEDS: INSULIN -REGULAR HUMAN 50 UNIT/0.5 ML ML SQ SCH ×4 (08:40→21:00)
[2019-06-23] MEDS: METFORMIN HCL 500 MG TAB PO SCH ×3 (08:41→21:28)
[2019-06-23] MEDS: carvediloL 12.5 MG TAB PO SCH ×3 (08:41→21:28)
[2019-06-23] MEDS: PIOGLITAZONE 15 MG TAB PO SCH ×2 (08:41→13:20)
[2019-06-23] MEDS: INSULIN DEGLUDEC 100 UNIT SQ SCH (08:42)
[2019-06-23] MEDS: BUPROPION HCL XL 150 MG TAB PO SCH ×2 (08:42→13:21)
[2019-06-23] MEDS: GUAIFENESIN 600 MG SA TAB PO SCH ×2 (08:42→21:28)
[2019-06-23] MEDS: ALPRAZOLAM 1 MG TABLET PO SCH (08:42)
[2019-06-23] MEDS: PREGABALIN 75 MG CAP PO SCH ×3 (08:42→21:28)
[2019-06-23] MEDS: NICOTINE 21 MG/PAT TD SCH (08:43)
--- NOTE | 2019-06-23 08:48 | RAD REPORT ---
EXAM DESCRIPTION: MRI - Foot Right W/Wo Con - 06/23/2019 8:31 am CLINICAL HISTORY: r/o osteo, soft tissue wound right fifth toe, soft tissue infection COMPARISON: Right foot films June 20, 2019 TECHNIQUE: Multi planer imaging of the right foot performed using T1 weighted, T2 fat saturation, T1 fat saturation and T2 stir sequencing. Following 20 milliliters MultiHance contrast volume, sagittal T1 fat saturation sequencing performed. FINDINGS: Hypointense T1 and hyperintense T2 signal is present in the distal phalanx fifth toe and t o a lesser degree in the proximal phalanx fifth toe. Enhancement is seen on the postcontrast sequenci ng. This is the digit in proximity to the wound. Osteomyelitis is the primary etiology. No paul bone destruction on MRI imaging. Advanced degenerative change present at the first MTP joint. There is joint space narrowing, large ma rginal spurs and numerous subcortical degenerative cystic changes in the flattened first metatarsal h ead. Hypointense T1 and hyperintense T2 pattern is consistent with a degenerative process. Osteomyeli tis is not suspected. Degenerative change seen in the first toe IP joint. Prominent soft tissue edema seen around the fifth toe and across the dorsum of the foot. No abscess o r drainable fluid collection. IMPRESSION: Abnormal signal in the right fifth toe with surrounding infectious/ inflammatory soft ti ssue changes. Findings are consistent with fifth toe osteomyelitis. No abscess or drainable fluid collection.
[2019-06-23] MEDS: Levofloxacin 750mg IV 750 MG/150 ML BAG IV SCH ×2 (09:51→11:01)
[2019-06-23] MEDS ORDERED: LIDOCAINE 2% MPF 5 ML VIAL ONE (10:36)
[2019-06-23] MEDS ORDERED: PROPOFOL 200 MG/20 ML VIAL IV ONE (10:36)
[2019-06-23] MEDS ORDERED: FENTANYL CITR 100 MCG/2 ML ONE (10:36)
[2019-06-23] MEDS ORDERED: MIDAZOLAM HCL 2 MG/2 ML INJ ONE (10:36)
[2019-06-23] MEDS ORDERED: LIDOCAINE 1% MPF 30 ML VIAL ONE (10:56)
--- NOTE | 2019-06-23 11:41 | P.OP ---
Preoperative diagnosis: right fifth digit gangrene with osteomyelitis Postoperative diagnosis: same Primary procedure: right fifth digit amputation Secondary procedure: closure of wound via advancement flap Other procedure(s): none Anesthesia: Mac with 10cc 1:1 0.5% marcaine 1% lidocaine plain Estimated blood loss: <20cc Specimen: bone for gross Findings: gangrene right fifth digit Operative Technique: amputation of right fifth digit via racquet incision and closure via advancement flap Complications: None Transferred to: Recovery Room Condition: Good
--- NOTE | 2019-06-23 16:00 | P.PN ---
Subjective Date of Service: 06/23/19 Chief Complaint: Gangrenous toe Patient seen and examined at bedside with RN. Chart reviewed. Patient currently is NPO after midnight for amputation today. No other complaints to offer. Review of Systems 10-point ROS is otherwise unremarkable Physical Examination - Vital Signs Temperature: 97.8 F Blood Pressure: 131/64 Pulse: 71 Respirations: 20 Pulse Ox (%): 95 - Physical Exam General: In no apparent distress HEENT: Atraumatic, PERRLA, EOMI Neck: Supple, JVD not distended Respiratory: Clear to auscultation bilaterally, Normal air movement Cardiovascular: Regular rate/rhythm, Normal S1 S2 Gastrointestinal: Normal bowel sounds, No tenderness Integumentary: Tenderness/swelling, Diabetic ulcer Neurological: Normal speech, Normal tone, Normal affect Lymphatics: No axilla or inguinal lymphadenopathy - Studies Medications List Reviewed: Yes Assessment And Plan - Current Problems (Diagnosis) (1) Gangrene of toe of right foot Current Visit: Yes Status: Acute Plan: Patient with right foot gangrene of the toe -MRI of the foot positive for osteomyelitis -building architectural designer consulted. Appreciate recommendation -patient planned for amputation today. -currently on IV vancomycin and Zosyn -culture is pending at this time -will monitor patient closely (2) Acute renal failure superimposed on stage 3 chronic kidney disease Current Visit: No Status: Acute Plan: Most likely secondary to acute infection -nephrology has been consulted appreciated recommendations -continue with IV fluid Qualifiers: Acute renal failure type: with acute tubular necrosis Qualified Code(s): N17.0 - Acute kidney failure with tubular necrosis; N18.3 - Chronic kidney disease, stage 3 (moderate) (3) Bipolar disorder Onset Date: 02/14/16 Current Visit: No Status: Chronic Qualifiers: Active/Remission status: remission status unspecified Qualified Code(s): F31.9 - Bipolar disorder, unspecified (4) CAD (coronary artery disease) Current Visit: No Status: Chronic Qualifiers: Coronary Disease-Associated Artery/Lesion type: [place] artery [place] vs. 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 control representative insulin use: without senior living use Diabetes mellitus complication status: with kidney complications Diabetes mellitus complication detail: with chronic kidney disease Chronic kidney disease stage : stage 3 (moderate) Qualified Code(s): E11.22 - Type 2 diabetes mellitus with diabetic chronic kidney disease; N18.3 - Chronic kidney disease, stage 3 ( moderate) (6) GERD (gastroesophageal reflux disease) Onset Date: 01/12/17 Current Visit: No Status: Chronic Qualifiers: Esophagitis presence: esophagitis presence not specified Qualified Code(s) : K21.9 - Gastro-esophageal reflux disease without esophagitis (7) History of pulmonary embolus (PE) Current Visit: No Status: Chronic (8) Hyperlipidemia Onset Date: 02/14/16 Current Visit: No Status: Chronic Qualifiers: Hyperlipidemia type: unspecified (9) Hypertension Onset Date: 01/12/17 Current Visit: No Status: Chronic Qualifiers: Hypertension type: essential hypertension - Plan Pending clinical improvement at this time. Will continue to monitor patient here in the hospital closely. Will follow up with podiatry post amputation. Will follow up with wound cultures as well. Discharge Plan: Home Plan to discharge in: Greater than 2 days - Code Status/Comfort Care Code Status Assessed: Yes Physician Review: Patient Assessed, Agree with Above Assessment and Plan Critical Care: No
[2019-06-23] MEDS ORDERED: ALPRAZOLAM 1 MG TABLET PO PRN (19:39)
[2019-06-23] MEDS: DIVALPROEX DR 500MG TAB PO SCH (21:28)
[2019-06-23] MEDS: ATORVASTATIN 20 MG TAB PO SCH (21:28)
[2019-06-24] MEDS: PANTOPRAZOLE 40MG TABLET PO SCH (05:35)
--- NOTE | 2019-06-24 08:10 | P.PN ---
Subjective Date of Service: 06/24/19 Chief Complaint: Gangrenous toe Subjective: No new changes, Tolerating diet, Improving, Doing well Review of Systems 10-point ROS is otherwise unremarkable Physical Examination - Vital Signs Temperature: 97.6 F Blood Pressure: 128/63 Pulse: 63 Respirations: 18 Pulse Ox (%): 94 - Physical Exam General: Alert, In no apparent distress, Oriented x3 Cardiovascular: No edema, Abnormal pulses (diminished pulses right lower extremity) Capillary refill: <2 Seconds Musculoskeletal: No clubbing, No swelling, No contractures, No erythema, No tenderness, No warmth Integumentary: Other (right fifth digit amputation site healing well. No dehiscence, no necrosis of skin flap, no erythema or edema, no purulence. ) Neurological: Abnormal sensation - Studies Medications List Reviewed: Yes Assessment And Plan - Current Problems (Diagnosis) (1) Gangrene of toe of right foot Current Visit: Yes Status: Acute (2) Diabetic foot ulcer Onset Date: 08/23/17 Current Visit: No Status: Acute Qualifiers: Diabetic foot ulcer location: toe - Plan s/p one day right fifth digit amputation. From a podiatric standpoint the patient can be d/c to home. Patient to keep dressing clean, dry and intact. follow up 06/30/19 in wound care. Physician Review: Patient Assessed, Agree with Above Assessment and Plan
[2019-06-24] MEDS: NICOTINE 21 MG/PAT TD SCH (09:00)
[2019-06-24] MEDS: INSULIN DEGLUDEC 100 UNIT SQ SCH (09:00)
[2019-06-24] MEDS: carvediloL 12.5 MG TAB PO SCH (09:01)
[2019-06-24] MEDS: METFORMIN HCL 500 MG TAB PO SCH (09:01)
[2019-06-24] MEDS: INSULIN -REGULAR HUMAN 50 UNIT/0.5 ML ML SQ SCH ×2 (09:01→12:33)
[2019-06-24] MEDS: GUAIFENESIN 600 MG SA TAB PO SCH (09:02)
[2019-06-24] MEDS: PIOGLITAZONE 15 MG TAB PO SCH (09:02)
[2019-06-24] MEDS: BUPROPION HCL XL 150 MG TAB PO SCH (09:02)
[2019-06-24] MEDS ORDERED: PREGABALIN 150 MG CAP PO SCH (09:45)
[2019-06-24 13:33] VITALS: BP 166/78; TEMP 97.2
[2019-06-24 13:44] VITALS: O2SAT 95
--- NOTE | 2019-06-24 14:29 | P.DS ---
Admission Date: 06/21/19 Discharge Date: 06/24/19 Disposition: ROUTINE DISCHARGE Discharge Condition: GOOD Reason for Admission: Gangrenous toe Consultations: Podiatry and general surgery - Problems (1) Gangrene of toe of right foot Current Visit: Yes Status: Acute (2) Acute renal failure superimposed on stage 3 chronic kidney disease Current Visit: No Status: Acute Qualifiers: Acute renal failure type: with acute tubular necrosis Qualified Code(s): N17.0 - Acute kidney failure with tubular necrosis; N18.3 - Chronic kidney disease, stage 3 (moderate) (3) Bipolar disorder Onset Date: 02/14/16 Current Visit: No Status: Chronic Qualifiers: Active/Remission status: remission status unspecified Qualified Code(s): F31.9 - Bipolar disorder, unspecified (4) CAD (coronary artery disease) Current Visit: No Status: Chronic Qualifiers: Coronary Disease-Associated Artery/Lesion type: [place] artery [place] vs. transplanted heart: [place] heart Associated angina: without angina Qualified Code(s): I25.10 - Atherosclerotic heart disease of [place] coronary artery without angina pectoris (5) DM2 (diabetes mellitus, type 2) Current Visit: No Status: Chronic Qualifiers: Diabetes mellitus media account executive insulin use: without senior care use Diabetes mellitus complication status: with kidney complications Diabetes mellitus complication detail: with chronic kidney disease Chronic kidney disease stage : stage 3 (moderate) Qualified Code(s): E11.22 - Type 2 diabetes mellitus with diabetic chronic kidney disease; N18.3 - Chronic kidney disease, stage 3 ( moderate) (6) GERD (gastroesophageal reflux disease) Onset Date: 01/12/17 Current Visit: No Status: Chronic Qualifiers: Esophagitis presence: esophagitis presence not specified Qualified Code(s) : K21.9 - Gastro-esophageal reflux disease without esophagitis (7) History of pulmonary embolus (PE) Current Visit: No Status: Chronic (8) Hyperlipidemia Onset Date: 02/14/16 Current Visit: No Status: Chronic Qualifiers: Hyperlipidemia type: unspecified (9) Hypertension Onset Date: 01/12/17 Current Visit: No Status: Chronic Qualifiers: Hypertension type: essential hypertension Brief History of Present Illness: Ms. Renetta Ramsay is a 53-year-old female with obesity, diabetes mellitus, hypertension, history of DVT and PE in the past, who presented because of worsening gangrene and blackish discoloration on the right fifth toe. The patient states she has been having eschar also over the base of the right great toe and was following with her cargo broker, Dr. Moe, but developed worsening discharge on the right fifth toe since the last couple of days. She has made attempts to reach cargo broker. There, was told he was not in town and she has come to the ED today. She admits to some fever and chills. She denies any chest pain, shortness of breath. She admits to some chest congestion and cough. She states she has also noticed pain and swelling over the right leg extending to the calf area. She has amputations of her great and first 2 digits of the left foot done by her cargo broker 1 year ago. She admits to a history of diabetic neuropathy. Hospital Course: Overall during the hospital stay patient remained stable Patient was initially admitted to the hospital for right 5th toe gangrene that was getting progressively worse. Podiatry was consulted here in the hospital along with general surgery. Wound cultures and blood cultures were collected. Patient was started on empiric antibiotics here in the hospital. Extremity ultrasound was done ruled out DVT. Patient also had foot MRI done which was positive for osteomyelitis of the right 5th toe. Podiatry at that time recommended patient have amputation done here in the hospital. Patient is currently status post amputation POD 1. Did well postprocedure. At that time recommended by podiatry to discharge home under stable condition and was given prescription for doxycycline to be taken orally. Patient will follow up with wound care clinic in about 1 week post discharge here from Hospital. General surgery also in agreement of the plan of care and thus patient discharged home under stable condition. Vital Signs/Physical Exam: Temp Pulse Resp BP Pulse Ox 97.2 F 70 15 166/78 H 96 06/24/19 12:00 06/24/19 12:00 06/24/19 12:00 06/24/19 12:00 06/24/19 12:00 General: Alert, In no apparent distress HEENT: Atraumatic, PERRLA, EOMI Neck: Supple, JVD not distended Respiratory: Clear to auscultation bilaterally, Normal air movement Cardiovascular: Regular rate/rhythm, Normal S1 S2 Gastrointestinal: Normal bowel sounds, No tenderness Musculoskeletal: Tenderness Integumentary: No rashes Neurological: Normal speech, Normal tone, Normal affect Lymphatics: No axilla or inguinal lymphadenopathy Laboratory Data at Discharge: WBC 6.3 K/uL (4.3-10.9) D 06/21/19 04:50 Hgb 10.7 g/dL (12.0-15.0) L 06/21/19 04:50 Hct 31.4 % (36.0-45.0) L 06/21/19 04:50 Plt Count 192 K/uL (152-406) 06/21/19 04:50 Sodium 144 mmol/L (136-145) 06/21/19 04:50 Potassium 3.5 mmol/L (3.5-5.1) 06/21/19 04:50 BUN 11 mg/dL (7-18) 06/21/19 04:50 Creatinine 1.03 mg/dL (0.55-1.3) 06/21/19 04:50 Glucose 77 mg/dL (74-106) 06/21/19 04:50 Total Bilirubin 0.2 mg/dL (0.2-1.0) 06/21/19 04:50 AST 32 U/L (15-37) 06/21/19 04:50 ALT 29 U/L (12-78) 06/21/19 04:50 Alkaline Phosphatase 92 U/L (45-117) 06/21/19 04:50 Home Medications: Bupropion *Xl* [Wellbutrin XL*] 150 mg PO DAILY 06/09/18 Divalproex Sodium [Depakote] 1,500 mg PO BEDTIME 06/09/18 Insulin Degludec [Tresiba Flextouch U-100] 100 unit SQ DAILY 06/09/18 Insulin Lispro [Humalog] 15 unit SQ ACHS 06/09/18 OLANZapine [Zyprexa*] 10 mg PO BEDTIME 06/09/18 Apixaban [Eliquis *] 5 mg PO BID 12/05/18 Atorvastatin Calcium [Lipitor*] 40 mg PO DAILY 12/05/18 Furosemide [Lasix*] 20 mg PO DAILY 12/05/18 Pregabalin [Lyrica*] 150 mg PO BID 12/05/18 Metformin HCl [Glucophage*] 500 mg PO BID 03/03/19 Omeprazole 20 mg PO DAILY 03/03/19 Venlafaxine HCl [Venlafaxine HCl ER] 75 mg PO BEDTIME 03/03/19 Venlafaxine HCl [Venlafaxine HCl ER] 150 mg PO DAILY 03/03/19 Dulaglutide [Trulicity] 0.75 mg SQ DAILY 06/21/19 Doxycycline Monohydrate 100 mg PO BID 6AM 6PM #28 capsule 06/24/19 New Medications: Doxycycline Monohydrate 100 mg PO BID 6AM 6PM #28 capsule Diet: Regular Activity: Ad shikha Followup: Wei Moe JR, DPM [ASSOCIATE-ACTIVE - CAN ADMIT] - 1 Week ()
--- NOTE | 2019-06-24 18:42 | OP ---
Date of Procedure: 06/23/2019 Surgeon: Wei Moe Jr, DPM Preoperative Diagnosis: Right fifth digit gangrene with osteomyelitis. Postoperative Diagnosis: Right fifth digit gangrene with osteomyelitis. Procedure: Right fifth digit amputation with closure via advancement flap. Pathology: Toe was sent for gross examination. Anesthesia: TIVA with 10 cc of 1:1, 0.5% Marcaine and 1% lidocaine plain. Hemostasis: None. Estimated Blood Loss: Less than 20 cc. Materials: 3-0 Prolene. Injectables: None. Complication: None. Procedure In Detail: Patient was brought to the [facility] operating room, placed on the OR table in supine position. She was placed under sedation by the anesthesiologist and 10 cc of 1:1, 0.5% Marcaine and 1% lidocaine plain were injected in local fashion in right lower extremity. W ell-padded pneumatic ankle tourniquet was applied to the right lower extremity. The patient was prep ped and draped in the usual aseptic manner. The right lower extremity was evaluated and the right fi fth digit was noted to have dry gangrene in the distal half. At this time, 2 racket incisions were m last and the incision was carried directly to bone. There was a dorsal extension that extended over t he fifth MPJ and then utilizing sharp dissection, the fifth digit was disarticulated from the fifth m etatarsophalangeal joint. Next, the wound was irrigated with copious amounts of normal sterile salin e. No purulence was noted. There was bleeding noted not profusely but moderate bleeding. At this t mary, the skin flaps were revised and advanced. Specifically, the lateral flap was advanced medially and closure was obtained utilizing a 3-0 Prolene suture in vertical mattress and simple interrupted s uture technique. Next, a dressing was applied utilizing Xeroform, 4 x 4's, Kerlix, and an [place]man wrap. The patient tolerated procedure and anesthesia well and transferred from OR to recovery with vital s igns stable and neurovascular status intact. RS/MODL Voice ID: [id number] Report ID: [id number]
== END 2019-06-24 13:58 | disposition home or self-care (01) | DRG 256 ==
LOC: ER 15:48 → ERHOLD 06-21 00:08 → 2ND 06-21 00:47
PROVIDERS: ADMIT Internal Medicine; ATTEND Internal Medicine
PROC: 0Y6X0Z0 Detachment at Right 5th Toe, Complete, Open Approach (ICD-10-PCS; principal; 2019-06-23 11:00)
DX: E11.52 Type 2 diabetes mellitus with diabetic peripheral angiopathy with gangrene (principal); I96 Gangrene, not elsewhere classified; N17.9 Acute kidney failure, unspecified; M86.171 Other acute osteomyelitis, right ankle and foot; F31.9 Bipolar disorder, unspecified; I25.10 Atherosclerotic heart disease of native coronary artery without angina pectoris; K21.9 Gastro-esophageal reflux disease without esophagitis; I12.9 Hypertensive chronic kidney disease with stage 1 through stage 4 chronic kidney disease, or unspecified chronic kidney disease; E11.22 Type 2 diabetes mellitus with diabetic chronic kidney disease; N18.3 Chronic kidney disease, stage 3 (moderate); E78.5 Hyperlipidemia, unspecified; E66.9 Obesity, unspecified; Z68.38 Body mass index [BMI] 38.0-38.9, adult; E11.69 Type 2 diabetes mellitus with other specified complication; Z86.711 Personal history of pulmonary embolism; Z86.718 Personal history of other venous thrombosis and embolism; Z23 Encounter for immunization
CPT/HCPCS: 36415; 80053; 80202; 81003; 82947; 83605; 84145; 85025; 85652; 86140; 87040; 87070; 87077; 87186; 87205; 88305; 88311; 90471; 93925; 96374; 99285; A9577; J2250; J2270; J2704; J3010; J7030; J7040; Q2035

== ENCOUNTER 2019-08-20 04:01 | Emergency (ER) | payer OTHER ==
--- OUTSIDE RECORDS SUMMARY | 2019-08-20 04:03 | XMS REPORT ---
:1965 [facility] Address [address] [place] [address] [place] [address] Care Team Providers Name Role Phone Unavailable Unavailable Unavailable Problems This patient has no known problems. Allergies, Adverse Reactions, Alerts This patient has no known allergies or adverse reactions. Medications This patient has no known medications.
--- OUTSIDE RECORDS SUMMARY | 2019-08-20 04:04 | XMS REPORT ---
[...] protonix NDC 0 Active not defined Tresiba [facility] 27331181164 100 UNIT/ML Active as FlexTouch Subcutaneous directed Humalog KwikPen [facility] 64854767940 100 UNIT/ML Active as Subcutaneous directed Bactrim DS [facility] [address]-59 Active not defined Trulicity NDC 0 Active not defined Venlafaxine HCl [facility] [address]-19 Active not ER defined Tramadol HCl [facility] 11557549233 50 MG Orally Feb 27, Active 1 tablet Once a day PRN 2019 as needed PAIN Eliquis [facility] 72660937189 5 MG Orally Active as directed Xanax [facility] [address]-72 Active not defined Acetaminophen-C [facility] 15374337342 300-60 MG Active 1 tablet odeine #4 Orally every 6 as needed hrs BuPROPion HBr NDC 0 Active not defined Depakote ND 32608420901 500 MG Orally Active 1 tablet Twice a day Lyrica [facility] [address]-92 Active not defined Olanzapine ND 16889572329 10 MG Orally Feb 25, Active 1 tablet Once a day 2018 atorvastatin ND 29400396322 20mg Active 1 tablet by mouth at bedtime Tylenol (#4) NDC 0 60/300 oral Active take 1 with codeine Q4hrs PRN tablet Pravastatin [facility] 35882862556 40 MG Orally Active 1 tablet Sodium Once a day Metformin HCl [facility] 55341316098 500 MG Orally Active 1 tablet Once a day with a meal Omeprazole [facility] 19806512455 20 MG Orally Active 1 capsule Once a day Results No Known Results Summary Purpose eClinicalWorks Submission
--- OUTSIDE RECORDS SUMMARY | 2019-08-20 04:04 | XMS REPORT ---
[...] Status Dosage System Date Date Acetaminophen-C [facility] 90884155843 300-60 MG Active 1 tablet odeine #4 Orally every 6 as needed hrs protonix NDC 0 Active not defined Pravastatin ND 03875837839 40 MG Orally Active 1 tablet Sodium Once a day Trulicity NDC 0 Active not defined Depakote [facility] 22129766196 500 MG Orally Active 1 tablet Twice a day Lyrica [facility] [address]-11 Active not defined Tramadol HCl [facility] 12883607442 50 MG Orally Feb 27, Active 1 tablet Once a day PRN 2019 as needed PAIN Tresiba [facility] 27945907554 100 UNIT/ML Active as FlexTouch Subcutaneous directed Xanax [facility] [address]-82 Active not defined Bactrim DS [facility] [address]-97 Active not defined Eliquis [facility] 21408773537 5 MG Orally Active as directed Humalog KwikPen [facility] 61225985511 100 UNIT/ML Active as Subcutaneous directed Tylenol (#4) NDC 0 60/300 oral Active take 1 with codeine Q4hrs PRN tablet Venlafaxine HCl [facility] [address]-06 Active not ER defined Omeprazole [facility] 29500841507 20 MG Orally Active 1 capsule Once a day atorvastatin [facility] 23721955553 20mg Active 1 tablet by mouth at bedtime Olanzapine [facility] 88749785037 10 MG Orally Feb 25, Active 1 tablet Once a day 2017 Metformin HCl [facility] 56517616537 500 MG Orally Active 1 tablet Once a day with a meal BuPROPion HBr ND 0 Active not defined Results No Known Results Summary Purpose eClinicalWorks Submission
--- OUTSIDE RECORDS SUMMARY | 2019-08-20 04:05 | XMS REPORT ---
:1965 Author Organization eClinicalWorks Care Team Providers Name Role Phone Navneet Call Provider Role Unavailable Allergies, Adverse Reactions, Alerts Substance Reaction Event Type penicillin Info Not Available Drug Allergy Amoxicillin Info Not Available Drug Allergy Problems Problem Type Condition Code Onset Dates Condition Status Assessment Lateral epicondylitis of left elbow M77.12 Active Problem Arthritis of knee, left M17.12 Active Problem Arthritis of knee, right M17.11 Active Problem Acute pain of right knee M25.561 Active Assessment Left elbow pain M25.522 Active Problem Primary osteoarthritis of left knee M17.12 Active Problem Primary osteoarthritis of right M17.11 Active knee Medications Medication Code Code Instructions Start End Status Dosage System Date Date Olanzapine [facility] 73449836550 10 MG Orally Feb 25, Active 1 tablet Once a day 2017 Metformin HCl [facility] 90279926438 500 MG Orally Active 1 tablet Once a day with a meal Omeprazole [facility] 23651862352 20 MG Orally Active 1 capsule Once a day Tramadol HCl ND 25629184706 50 MG Orally Feb 27, Active 1 tablet Once a day PRN 2019 as needed PAIN Trulicity NDC 0 Active not defined protonix NDC 0 Active not defined Tylenol (#4) NDC 0 60/300 oral Active take 1 with codeine Q4hrs PRN tablet Eliquis [facility] 30461820878 5 MG Orally Active as directed Xanax [facility] [address]-16 Active not defined Bactrim DS [facility] [address]-81 Active not defined BuPROPion HBr NDC 0 Active not defined Depakote ND 29727696363 500 MG Orally Active 1 tablet Twice a day Venlafaxine HCl [facility] [address]-73 Active not ER defined Lyrica [facility] [address]-58 Active not defined atorvastatin ND 49526395868 20mg Active 1 tablet by mouth at bedtime Acetaminophen-C [facility] 74637889257 300-60 MG Active 1 tablet odeine #4 Orally every 6 as needed hrs Humalog KwikPen [facility] 63935477559 100 UNIT/ML Active as Subcutaneous directed Tresiba ND 20908201846 100 UNIT/ML Active as FlexTouch Subcutaneous directed Acetic Acid NDC 0 Active not defined Results No Known Results Summary Purpose eClinicalWorks Submission
--- OUTSIDE RECORDS SUMMARY | 2019-08-20 04:05 | XMS REPORT ---
[...] Start End Status Dosage System Date Date Venlafaxine HCl [facility] [address]-75 Active not ER defined Metformin HCl [facility] 51509273004 500 MG Orally Active 1 tablet Once a day with a meal Tresiba [facility] 19388960384 100 UNIT/ML Active as FlexTouch Subcutaneous directed Pravastatin ND 41309766682 40 MG Orally Active 1 tablet Sodium Once a day atorvastatin [facility] 26858642875 20mg Active 1 tablet by mouth at bedtime Lyrica [facility] [address]-64 Active not defined Tramadol HCl ND 23951140233 50 MG Orally Feb 27, Active 1 tablet Once a day PRN 2019 as needed PAIN Humalog KwikPen [facility] 70568832480 100 UNIT/ML Active as Subcutaneous directed Acetaminophen-C [facility] 29614393954 300-60 MG Active 1 tablet odeine #4 Orally every 6 as needed hrs Xanax [facility] [address]-04 Active not defined Trulicity NDC 0 Active not defined Bactrim DS [facility] [address]-01 Active not defined Olanzapine ND 84321598539 10 MG Orally Feb 25, Active 1 tablet Once a day 2018 protonix NDC 0 Active not defined BuPROPion HBr NDC 0 Active not defined Tylenol (#4) NDC 0 60/300 oral Active take 1 with codeine Q4hrs PRN tablet Eliquis [facility] 49324482808 5 MG Orally Active as directed Omeprazole [facility] 36269390508 20 MG Orally Active 1 capsule Once a day Depakote [facility] 10374943050 500 MG Orally Active 1 tablet Twice a day Results No Known Results Summary Purpose eClinicalWorks Submission
[2019-08-20] MEDS ORDERED: KETOROLAC 30 MG/ML INJ ONE (04:55)
--- NOTE | 2019-08-20 05:36 | EDPHYS ---
Physician Documentation [facility] Name: Renetta Ramsay Age: 53 yrs Sex: Female : 1965 Arrival Date: 08/20/2019 Time: 04:03 Bed 25 Private MD: ED Physician Ventura Herron HPI: 08/20 04:42 This 53 yrs old Female presents to ER via Ambulatory with complaints of tw4 Difficulty Swallowing. 04:42 The patient presents with dysphagia, of solids. The patient describes throat pain as tw4 dry. Onset: The symptoms/episode began/occurred 4 week(s) ago. Severity of symptoms: At their worst the symptoms were moderate, in the emergency department the symptoms are unchanged. Modifying factors: The symptoms are alleviated by nothing, the symptoms are aggravated by swallowing, Patient's oral intake status: limited food intake. Associated signs and symptoms: The patient has no apparent associated signs or symptoms. 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 LMP N/A - Hysterectomy ch Historical: - Allergies: 04:29 Amoxicillin; ch 04:29 ARIPIPRAZOLE; ch 04:29 Demerol; ch 04:29 PENICILLINS; ch 04:29 pentazocine lactate; ch 04:29 Talwin; ch - Home Meds: 04:29 atorvastatin 40 mg Oral tab 1 tab once daily [Active]; Bupropion Oral once daily [Active]; carvedilol 12.5 mg Oral tab 1 tab 2 times per day [Active]; Depakote 500 mg Oral TbEC 1 tab 3 times per day [Active]; divalproex 500 mg Oral TbEC 3 tabs nightly [Active]; Effexor XR 225 mg Oral cp24 1 cap once daily [Active]; Eliquis 5 mg Oral tab 1 tab 2 times per day [Active]; fenofibrate 145 MG Oral 1 cap nightly [Active]; furosemide 40 mg Oral tab 1 tab once daily [Active]; furosemide 20 mg Oral tab 1 tab once daily [Active]; Humalog 100 unit/mL Sub-Q crtg 30 unit before meals [Active]; Levemir 100 unit/mL subcutaneous soln 100 unit daily [Active]; Lyrica 150 mg Oral 2 times per day [Active]; metformin 500 mg Oral Tb24 1 tab 2 times per day [Active]; olanzapine 10 mg Oral tab 1 tab IN AM [Active]; omeprazole 20 mg Oral cpDR 1 cap once daily [Active]; pantoprazole 40 mg Oral TbEC 1 tab 2 times per day [Active]; Tresiba FlexTouch U-100 100 unit/mL (3 mL) subcutaneous inpn 160 unit [Active]; metformin 500 mg Oral Tb24 1 tab 2 times per day [Active]; olanzapine 10 mg Oral tab once daily [Active]; pioglitazone 30 mg Oral tab 1 tab once daily [Active]; Trulicity 0.75 mg/0.5 mL subcutaneous pnij 0.5 mL once wkly [Active]; venlafaxine 150 mg Oral cp24 1 cap once daily [Active]; Wellbutrin XL 150 mg Oral Tb24 1 tab once daily [Active]; Xanax 1 mg Oral tab 1 tab twice a day [Active]; - PMHx: 04:29 ADD/ADHD; Bipolar disorder; Chronic pain; Depression; Diabetes - NIDDM; High ch Cholesterol; Hypertension; osteomyelitis; Pancreatitis; esophageal stricture; - PSHx: 04:29 Hysterectomy; multiple toe amputations; Appendectomy; back sx; colonoscopy, and endoscopy; - Immunization history:: Adult Immunizations up to date. - Coronavirus screen:: The patient has NOT traveled to [place], [place], or [place] in the past 14 days. The patient has NOT had contact with known/suspected case of Coronavirus?. - Social history:: Smoking status: Patient reports the use of cigarette tobacco products, smokes one pack cigarettes per day. - Ebola Screening: : Patient negative for fever greater than or equal to 101.5 degrees Fahrenheit, and additional compatible Ebola Virus Disease symptoms Patient denies exposure to infectious person Patient denies travel to an Ebola-affected area in the 21 days before illness onset No symptoms or risks identified at this time. ROS: 04:42 Constitutional: Negative for fever, chills, and weight loss, Eyes: Negative for injury, tw4 pain, redness, and discharge. 04:42 Cardiovascular: Negative for chest pain, palpitations, and edema, Respiratory: Negative for shortness of breath, cough, wheezing, and pleuritic chest pain, Abdomen/GI: Negative for abdominal pain, nausea, vomiting, diarrhea, and constipation, Back: Negative for injury and pain, MS/Extremity: Negative for injury and deformity, Skin: Negative for injury, rash, and discoloration, Neuro: Negative for headache, weakness, numbness, tingling, and seizure. 04:42 ENT: Positive for sore throat. 04:42 Neck: Positive for Exam: 04:42 Constitutional: This is a well developed, well nourished patient who is awake, alert, tw4 and in no acute distress. Head/Face: Normocephalic, atraumatic. Chest/axilla: Normal chest wall appearance and motion. Nontender with no deformity. No lesions are appreciated. Cardiovascular: Regular rate and rhythm with a normal S1 and S2. No gallops, murmurs, or rubs. Normal PMI, no JVD. No pulse deficits. Respiratory: Lungs have equal breath sounds bilaterally, clear to auscultation and percussion. No rales, rhonchi or wheezes noted. No increased work of breathing, no retractions or nasal flaring. Abdomen/GI: Soft, non-tender, with normal bowel sounds. No distension or tympany. No guarding or rebound. No evidence of tenderness throughout. MS/ Extremity: Pulses equal, no cyanosis. Neurovascular intact. Full, normal range of motion. Neuro: Awake and alert, GCS 15, oriented to person, place, time, and situation. Cranial nerves II-XII grossly intact. Motor strength 5/5 in all extremities. Sensory grossly intact. Cerebellar exam normal. Normal gait. Vital Signs: 04:29 BP 167 / 112; Pulse 78; Resp 16; Temp 98.6; Pulse Ox 99% on R/A; Weight 122.47 kg; ch Height 5 ft. 11 in. (180.34 cm); Pain 8/10; 05:28 BP 156 / 96; Pulse 81; Resp 16; Pulse Ox 97% on R/A; Pain 0/10; ch 04:29 Body Mass Index 37.66 (122.47 kg, 180.34 cm) 05:28 pt asleep MDM: 04:19 Patient medically screened. tw4 08/21 05:34 Differential diagnosis: epiglottitis, mike-stewart virus, cruz's angina. Data tw4 reviewed: vital signs, nurses notes. Data interpreted: Pulse oximetry: Interpretation: normal. Counseling: I had a detailed discussion with the patient and/or guardian regarding: the historical points, exam findings, and any diagnostic results supporting the discharge/admit diagnosis, radiology results. Special discussion: I discussed with the patient/guardian in detail that at this point there is no indication for admission to the hospital. It is understood, however, that if the symptoms persist or worsen the patient needs to return immediately for re-evaluation. 08/20 04:31 Order name: CXR XRAY tw4 08/20 04:31 Order name: Neck Soft Tissue XRAY tw4 Administered Medications: 08/20 04:55 Drug: TORadol 60 mg Route: IM; Site: left vastus lateralis; ch 05:28 Follow up: Response: No adverse reaction; Marked relief of symptoms ch Disposition: 08/20/19 05:36 Discharged to Home. Impression: Dysphagia, unspecified. - Condition is Stable. - Discharge Instructions: Clear Liquid Diet, Adult, Dysphagia, Thickening Liquids for Dysphagia Diet, Dysphagia Diet Level 3, Mechanically Advanced, Dysphagia Diet Level 2, Mechanically Altered, Dysphagia Diet Level 1, Pureed. - SBAR form, Medication Reconciliation Form, Thank You Letter, Antibiotic Education, Prescription Opioid Use form. - Follow up: Private Physician; When: Upon discharge from the Emergency Department; Reason: Recheck today's complaints, Continuance of care. Follow up: Diego Schaeffer MD; When: Today; Reason: Recheck today's complaints, Continuance of care, Re-evaluation by your physician. - Problem is new. - Symptoms have improved. Signatures: Dispatcher [employer] EDMS Bernarda Caro RN RN ch Wadley, Terrence, MD MD tw4 Corrections: (The following items were deleted from the chart) 05:49 05:36 08/20/2019 05:36 Discharged to Home. Impression: Dysphagia, unspecified. ch Condition is Stable. Forms are SBAR form, Medication Reconciliation Form, Thank You Letter, Antibiotic Education, Prescription Opioid Use. Follow up: Private Physician; When: Upon discharge from the Emergency Department; Reason: Recheck today's complaints, Continuance of care. Follow up: Diego Schaeffer; When: Today; Reason: Recheck today's complaints, Continuance of care, Re-evaluation by your physician. Problem is new. Symptoms have improved. tw4
--- NOTE | 2019-08-20 05:36 | ER ---
Nurse's Notes [facility] Name: Renetta Ramsay Age: 53 yrs Sex: Female : 1965 Arrival Date: 08/20/2019 Time: 04:03 Bed 25 Private MD: Diagnosis: Dysphagia, unspecified Presentation: 08/20 04:21 Presenting complaint: Patient states: diffuculty swallowing, feels like something is ch getting stuck for the past couple week. getting worse. the past two days feels like food is stuck in base of neck. Transition of care: patient was not received from another setting of care. Onset of symptoms was July 2019. Risk Assessment: Do you want to hurt yourself or someone else? Patient reports no desire to harm self or others. Initial Sepsis Screen: Does the patient meet any 2 criteria? No. Patient's initial sepsis screen is negative. Does the patient have a suspected source of infection? No. Patient's initial sepsis screen is negative. Care prior to arrival: None. 04:21 Method Of Arrival: Ambulatory 04:21 Acuity: OLY 3 ch Triage Assessment: 04:29 General: Appears in no apparent distress. comfortable, Behavior is cooperative, ch appropriate for age, anxious. Pain: Complains of pain in suprasternal notch Pain currently is 8 out of 10 on a pain scale. Pain began gradually. EENT: Reports difficulty swallowing for three weeks. Neuro: No deficits noted. Level of Consciousness is awake, alert, obeys commands. Respiratory: Airway is patent Trachea midline Respiratory effort is even, unlabored. 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 LMP N/A - Hysterectomy Historical: - Allergies: 04:29 Amoxicillin; ch 04:29 ARIPIPRAZOLE; ch 04:29 Demerol; ch 04:29 PENICILLINS; ch 04:29 pentazocine lactate; ch 04:29 Talwin; - Home Meds: 04:29 atorvastatin 40 mg Oral tab 1 tab once daily [Active]; Bupropion Oral once daily [Active]; carvedilol 12.5 mg Oral tab 1 tab 2 times per day [Active]; Depakote 500 mg Oral TbEC 1 tab 3 times per day [Active]; divalproex 500 mg Oral TbEC 3 tabs nightly [Active]; Effexor XR 225 mg Oral cp24 1 cap once daily [Active]; Eliquis 5 mg Oral tab 1 tab 2 times per day [Active]; fenofibrate 145 MG Oral 1 cap nightly [Active]; furosemide 40 mg Oral tab 1 tab once daily [Active]; furosemide 20 mg Oral tab 1 tab once daily [Active]; Humalog 100 unit/mL Sub-Q crtg 30 unit before meals [Active]; Levemir 100 unit/mL subcutaneous soln 100 unit daily [Active]; Lyrica 150 mg Oral 2 times per day [Active]; metformin 500 mg Oral Tb24 1 tab 2 times per day [Active]; olanzapine 10 mg Oral tab 1 tab IN AM [Active]; omeprazole 20 mg Oral cpDR 1 cap once daily [Active]; pantoprazole 40 mg Oral TbEC 1 tab 2 times per day [Active]; Tresiba FlexTouch U-100 100 unit/mL (3 mL) subcutaneous inpn 160 unit [Active]; metformin 500 mg Oral Tb24 1 tab 2 times per day [Active]; olanzapine 10 mg Oral tab once daily [Active]; pioglitazone 30 mg Oral tab 1 tab once daily [Active]; Trulicity 0.75 mg/0.5 mL subcutaneous pnij 0.5 mL once wkly [Active]; venlafaxine 150 mg Oral cp24 1 cap once daily [Active]; Wellbutrin XL 150 mg Oral Tb24 1 tab once daily [Active]; Xanax 1 mg Oral tab 1 tab twice a day [Active]; - PMHx: 04:29 ADD/ADHD; Bipolar disorder; Chronic pain; Depression; Diabetes - NIDDM; High ch Cholesterol; Hypertension; osteomyelitis; Pancreatitis; esophageal stricture; - PSHx: 04:29 Hysterectomy; multiple toe amputations; Appendectomy; back sx; colonoscopy, and ch endoscopy; - Immunization history:: Adult Immunizations up to date. - Coronavirus screen:: The patient has NOT traveled to [place], [place], or [place] in the past 14 days. The patient has NOT had contact with known/suspected case of Coronavirus?. - Social history:: Smoking status: Patient reports the use of cigarette tobacco products, smokes one pack cigarettes per day. - Ebola Screening: : Patient negative for fever greater than or equal to 101.5 degrees Fahrenheit, and additional compatible Ebola Virus Disease symptoms Patient denies exposure to infectious person Patient denies travel to an Ebola-affected area in the 21 days before illness onset No symptoms or risks identified at this time. Screenin:28 Abuse screen: Denies threats or abuse. Denies injuries from another. Nutritional screening: No deficits noted. Tuberculosis screening: No symptoms or risk factors identified. Fall Risk None identified. Assessment: 05:28 Reassessment: Patient appears in no apparent distress at this time. Patient and/or ch family updated on plan of care and expected duration. Pain level reassessed. pt is asleep in room, skin wdp, resps even and unlabored. pt is seen swallowing in her sleep. Patient states feeling better. Patient states symptoms have improved. 05:47 Reassessment: Patient appears in no apparent distress at this time. Patient and/or ch family updated on plan of care and expected duration. Pain level reassessed. Patient is alert, oriented x 3, equal unlabored respirations, skin warm/dry/pink. Patient denies pain at this time. Patient states feeling better. Patient states symptoms have improved. Vital Signs: 04:29 BP 167 / 112; Pulse 78; Resp 16; Temp 98.6; Pulse Ox 99% on R/A; Weight 122.47 kg; ch Height 5 ft. 11 in. (180.34 cm); Pain 8/10; 05:28 BP 156 / 96; Pulse 81; Resp 16; Pulse Ox 97% on R/A; Pain 0/10; ch 04:29 Body Mass Index 37.66 (122.47 kg, 180.34 cm) 05:28 pt asleep ED Course: 04:03 Patient arrived in ED. ds1 04:07 Bernarda Caro, MARK is Primary Nurse. ch 04:19 Ventura Herron MD is Attending Physician. tw4 04:22 Triage completed. ch 04:29 Arm band placed on left wrist. Patient placed in an exam room, on a stretcher, on pulse oximetry. 04:34 Patient has correct armband on for positive identification. Bed in low position. Call light in reach. Side rails up X 1. Pulse ox on. NIBP on. 04:34 No provider procedures requiring assistance completed. Patient did not have IV access ch during this emergency room visit. 05:08 CXR XRAY In Process Unspecified. EDMS 05:08 Neck Soft Tissue XRAY In Process Unspecified. EDMS 05:31 No apparent distress. Appears to be sleeping. 05:35 Diego Schaeffer MD is Referral Physician. tw4 Administered Medications: 04:55 Drug: TORadol 60 mg Route: IM; Site: left vastus lateralis; 05:28 Follow up: Response: No adverse reaction; Marked relief of symptoms Outcome: 05:36 Discharge ordered by . tw4 05:47 Discharged to home ambulatory. 05:47 Condition: improved 05:47 Discharge instructions given to patient, Instructed on discharge instructions, follow up and referral plans. Demonstrated understanding of instructions, follow-up care. 05:49 Patient left the ED. Signatures: Dispatcher [employer] EDTX Bernarda Caro RN RN Rissa Pereira ds1 Ventura Herron MD MD tw4
[2019-08-20 06:10] VITALS: TEMP 98.6
[2019-08-20 06:11] VITALS: BP 156/96; O2SAT 97
--- NOTE | 2019-08-20 07:45 | RAD REPORT ---
EXAM DESCRIPTION: Rex Single View08/20/2019 5:07 am CLINICAL HISTORY: Chest pain/sore throat COMPARISON: 201 FINDINGS: 25 millimeter left upper lobe partially calcified nodule unchanged Right lung appears clear of acute infiltrate The heart is normal size
--- NOTE | 2019-08-20 07:47 | RAD REPORT ---
EXAM DESCRIPTION: RAD - Neck Soft Tissue - 08/20/2019 5:08 am CLINICAL HISTORY: Neck pain/sore throat FINDINGS: Large anterior osteophytes at C3-4 impinge upon the esophagus. Additionally the pharynx is narrowed at this level. If clinically indicated further evaluation with CT could be obtained. The subglottic trachea is poorly visualized secondary overlying shoulders. Epiglottis appears unremarkable. Visualized prevertebral soft tissues appear normal Anterior fusion involves the lower cervical spine
== END 2019-08-20 05:49 | disposition home or self-care (01) ==
LOC: ER 04:01
DX: R13.10 Dysphagia, unspecified (principal); I10 Essential (primary) hypertension; E11.9 Type 2 diabetes mellitus without complications; E78.00 Pure hypercholesterolemia, unspecified; F31.9 Bipolar disorder, unspecified; F17.210 Nicotine dependence, cigarettes, uncomplicated; Z79.4 Long term (current) use of insulin; Z88.0 Allergy status to penicillin; Z88.1 Allergy status to other antibiotic agents; Z88.5 Allergy status to narcotic agent; Z88.8 Allergy status to other drugs, medicaments and biological substances
CPT/HCPCS: 70360; 71045; 96372; 99283

== ENCOUNTER 2020-01-16 04:05 | Emergency (ER) | payer OTHER ==
--- OUTSIDE RECORDS SUMMARY | 2020-01-16 04:10 | XMS REPORT | Continuity of Care Document ---
:1965 Author Organization [employer] [facility] Care Team Providers Name Role Phone [employer] Unavailable Un available Problems Problem Status Onset Classification Date Comments Sourc e Date Reported Epigastric pain 07/19/20 12/18/2018 18 [place] DX: Active 05/29/20 R13.10=DYSPHAGIA, 18 [place] UNSPECIFIED, R10.1 Achalasia of cardia 05/01/20 11/12/2018 18 [place] UNK Active 04/17/20 18 [place] GERD WO ESOPHAGITIS Active 04/17/20 18 [place] K21.9, R13.10, Active 04/04/20 K44.9 18 [place] Dysphagia, 12/18/2018 unspecified [place] Gastro-esophageal 12/18/2018 M [facility] reflux disease [place] without esophagitis Anxiety (finding) Active Problem 12/18/2018 M H [place] Chronic obstructive Active Problem 12/18/[address] (disorder) Deep venous Resolved Problem 12/18/2018 thrombosis [place] (disorder) Diabetes mellitus Active Problem 12/18/2018 M [facility] (disorder) [place] Dyspnea on exertion Active Problem 12/18/2018 MH (finding) [place] Gastroesophageal Active Problem 12/18/2018 reflux disease [place] (disorder) Pulmonary emphysema Active Problem 12/18/2018 [facility] (disorder) [place] Pulmonary Resolved Problem 12/18/2018 thromboembolism [place] (disorder) Sleep apnea Active Problem 12/18/2018 (finding) [place] Diaphragmatic 11/04/2018 hernia without [place] obstruction or gangrene Gastritis, 11/10/2018 unspecified, [place] [facility] without bleeding Chronic obstructive 11/10/2018 pulmonary disease, [place] unspecified Sleep apnea, 11/10/2018 unspecified [place] Type 2 diabetes 11/12/2018 mellitus without [place] complications 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 Nicotine 11/12/2018 MH dependence, [place] cigarettes, uncomplicated DYSPHAGIA, Active MH UNSPECIFIED [place] GASTRO-ESOPHAGEAL Active MH REFLUX DISEASE [facility] WITHOUT DIAPHRAGMATIC Active MH HERNIA WITHOUT [facility] OBSTRUCTION Medications Medication Details Route Status Patient Ordering Order Source Instructions Provider Date Oxycodone 5 mg, 5 mL, Inactive Hydrochloride 1 Route: PO, 2017 [place] MG/ML Oral ONCE, Dosing Solution Weight 113.636, kg, Start date: 04/25/18 12:47:00 CDT, Stop date: 04/25/18 12:47:00 CDT Labetalol 10 mg, Route: Inactive IVP, Q5Min, 2017 [facility] Dosing Weight 113.636, kg, PRN Elevated BP, Start date: 04/25/18 11:19:00 CDT, Duration: 5 doses or times, Stop date: Limited # of times Hydralazine 10 mg, Route: Inactive IVP, Q20Min, 2017 [facility] Dosing Weight 113.636, kg, PRN Elevated BP, Start date: 04/25/18 11:19:00 CDT, Duration: 2 doses or times, Stop date: Limited # of times Oxycodone 5 mg, Route: Inactive PO, Drug form: 2017 [facility] TAB, Q4H, Dosing Weight 113.636, kg, PRN Pain Score 4-6, Start date: 04/25/18 11:19:00 CDT, Duration: 30 day, Stop date: 05/25/18 11:18:00 CDT Diphenhydramine 12.5 mg, Route: Inactive IVP, Drug form: 2017 [place] INJ, Q6H, Dosing Weight 113.636, kg, PRN Itching, Start date: 04/25/18 11:19:00 CDT, Duration: 30 day, Stop date: 05/25/18 11:18:00 CDT Naloxone 0.1 mg, Route: Inactive SUB-Q, Q6H, 2017 [facility] Dosing Weight 113.636, kg, PRN Itching, Start date: 04/25/18 11:19:00 CDT, Duration: 30 day, Stop date: 05/25/18 11:18:00 CDT Albuterol 0.83 2.49 mg, Route: Inactive MG/ML Inhalant NEB, Q20Min, 2018 [place] Solution Dosing Weight 113.636, kg, PRN Wheezing, Priority: STAT, Start date: 04/25/18 11:19:00 CDT, Duration: 30 day, Stop date: 05/25/18 11:18:00 CDT Hydromorphone 0.5 mg, Route: Inactive IVP, Q5Min, 2017 [facility] Dosing Weight 113.636, kg, PRN Pain Score 7-10, Start date: 04/25/18 11:19:00 CDT, Duration: 4 doses or times, Stop date: Limited # of times Meperidine 12.5 mg, Route: Inactive IVP, Q30Min, 2017 [facility] Dosing Weight 113.636, kg, PRN Other -See Comment, For shivering, Start date: 04/25/18 11:19:00 CDT, Duration: 2 doses or times, Stop date: Limited # of times Fentanyl 25 microgram, Inactive Route: IVP, 2017 [facility] Q5Min, Dosing Weight 113.636, kg, PRN Pain Score 4-6, Priority: Routine, Start date: 04/25/18 11:19:00 CDT, Duration: 4 doses or times, Stop date: Limited # of times Flumazenil 0.2 mg, Route: Inactive IVP, PRN, 2017 [facility] Dosing Weight 113.636, kg, PRN Benzodiazepine Reversal, Initial dose, Start date: 04/25/18 11:19:00 CDT, Duration: 30 day, Stop date: 05/25/18 11:18:00 CDT 72 HR Scopolamine 1 patch, Route: Inactive 04/25 0.0139 MG/HR TOP, Drug Form: 2018 [place] Transdermal Patch ERFILM, Dosing Weight 113.636, kg, ONCE, Apply behind ear. Avoid use in elderly., Start date: 04/25/18 11:19:00 CDT, Stop date: 04/25/18 11:19:00 CDT Promethazine 6.25 mg, Route: Inactive IVPB, ONCE, 2017 [facility] Dosing Weight 113.636, kg, PRN Nausea & Vomiting, Start date: 04/25/18 11:19:00 CDT Ondansetron 4 mg, Route: Inactive 04/25/ IVP, ONCE, 2017 [facility] Dosing Weight 113.636, kg, PRN Nausea & Vomiting, Start date: 04/25/18 11:19:00 CDT levofloxacin Route: IV, Drug Inactive 04/25/ MH (ANES) form: INJ, 2017, Stop date: 04/25/18 9:59:00 CDT fentaNYL (ANES) Route: IV, Drug Inactive 04/25/ MH form: [id number], Stop date: 04/25/18 9:44:00 CDT lidocaine (ANES) Route: IV, Drug Inactive 04/25/ MH form: [id number], Stop date: 04/25/18 9:44:00 CDT rocuronium (ANES) Route: IV, Drug Inactive 04/25 / MH form: [id number], Stop date: 04/25/18 9:44:00 CDT propofol (ANES) Route: IV, Drug Inactive 04/25/ MH form: [id number], Stop date: 04/25/18 9:44:00 CDT ondansetron Route: IV, Drug Inactive 04/25/ MH (ANES) form: [id number], Stop date: 04/25/18 9:44:00 CDT acetaminophen Route: IV, Drug Inactive 04/25/ M H (ANES) form: [id number], Stop date: 04/25/18 9:44:00 CDT famotidine (ANES) Route: IV, Drug Inactive 04/25 / MH form: [id number], Stop date: 04/25/18 9:44:00 CDT scopolamine Route: IV, Drug Inactive 04/25/ MH (ANES) form: ERFILM, 2017, Stop date: 04/25/18 9:44:00 CDT dexamethasone Route: IV, Drug Inactive 04/25/ M H (ANES) form: [id number], Stop date: 04/25/18 9:44:00 CDT midazolam (ANES) Route: IV, Drug Inactive 10/04/ MH form: SOLN, 2017 [place] ONCE, Stop date: 04/25/18 9:34:00 CDT Sodium Chloride Route: IV, Inactive 0.9% IV (ANES) Total Volume: 2018 [place] 1000 mL 1,000, Start date: 04/25/18 8:58:00 CDT, Stop date: 04/25/18 9:58:00 CDT Calcium Chloride 1,000 mL, Rate: Inactive 0.0014 MEQ/ML / 25 ml/hr, 2017 [place] Potassium Infuse over: 40 Chloride 0.004 hr, Route: IV, MEQ/ML / Sodium Dosing Weight Chloride 0.103 113.636 kg, MEQ/ML / Sodium Total Volume: Lactate 0.028 1,000, Start MEQ/ML Injectable date: 04/25/18 Solution 8:50:00 CDT, Duration: 30 day, Stop date: 05/25/18 8:49:00 CDT, 2.41, m2 Lactated Ringers Route: IV, Inactive Injection IV Total Volume: 2017 [facility] (ANES) 1000 mL 1,000, Start date: 04/25/18 8:49:00 CDT, Stop date: 04/25/18 9:49:00 CDT heparin sodium, Route: SUB-Q, Inactive H porcine 2500 Drug form: INJ, 2018 [place] UNT/ML Injectable ONCALL, Dosing Solution Weight 113.636, kg, Start date: 04/25/18 8:00:00 CDT, Duration: 30 day, Stop date: 05/25/18 7:59:00 CDT Insulin regular 4 unit, Route: Inactive IV, ONCE, 2017 [facility] Dosing Weight 113.636, kg, Start date: 04/25/18 7:58:00 CDT, Stop date: 04/25/18 7:58:00 CDT Sodium Chloride 500 mL, Rate: Inactive H 0.9% IV 500 mL 25 ml/hr, [address] [place] Infuse over: 20 hr, Route: IV, Dosing Weight 112.727 kg, Total Volume: 500, Start date: 04/23/18 7:17:00 CDT, Duration: 30 day, Stop date: 05/23/18 7:16:00 CDT, 2.4, m2 Tresiba FlexTouch 100 units, Active SUB-Q, QAM 2018 (Insulin), 0 Refill(s) Humalog 15 unit, SUB-Q, Active TID-Before 2018 Meals, 0 Refill(s) rivaroxaban 20 MG 20 mg = 1 tab, Active Oral Tablet PO, QPM, # 30 2018 [facility] ast [Xarelto] tab, 3 Refill(s) Fenofibrate 145 145 mg = 1 tab, Active MG Oral Tablet PO, Bedtime, 0 2018 [place] Refill(s) OLANZapine 10 mg 10 mg = 1 tab, Active oral tablet PO, QPM, 0 2018 Refill(s) 24 HR Divalproex 3 tabs, PO, Active Sodium 500 MG Bedtime, [address] [facility] [address] Extended Release Refill(s) Tablet [Depakote] pantoprazole 40 40 mg = 1 tab, Active 04/19/ H mg oral enteric PO, BID, 0 2018 [facility] coated tablet Refill(s) pregabalin 150 MG 150 mg = 1 cap, Active Oral Capsule PO, QAM, [address] [facility] t [Lyrica] Refill(s) venlafaxine 150 150 mg = 1 tab, Active mg oral tablet, PO, QAM, # 30 2018 [place] extended release tab, 0 Refill(s) olanzapine 5 MG 5 mg = 1 tab, Active Oral Tablet PO, QAM, 0 2018 Refill(s) pioglitazone 30 30 mg = 1 tab, Active 04/19/ M H mg oral tablet PO, QAM, 0 2018 [facility] Refill(s) Alprazolam 1 MG 1 mg = 1 tab, Active Oral Tablet PO, QAM, 0 2018 [Xanax] Refill(s) metFORMIN 500 mg 1,000 mg = 2 Active oral tablet, tab, PO, BID, 0 2018 [place] extended release Refill(s) Allergies, Adverse Reactions, Alerts Substance Category Reaction Severity Reaction Status Date Comments S ource type Reported penicillins Assertion Drug Active MH allergy [place] Assertion Drug Active MH allergy [place] Immunizations No Data Provided for This Section Results Order Name Results Value Reference Date Interpretation Comments [facility] BLOOD BANK ABO/Rh B POS 04/19 RESULTS /2017 [facility] BLOOD BANK Antibody Negative 04/19 RESULTS Scrn (04/19/18 3:18 PM) [facility] ast CHEM PANEL eGFR 56 04/19 Result Comment: The [facility] eGFR is calculated using the CKD-EPI formula. [...] PANEL AST 21 0 - 37 04/19 [facility] CHEM PANEL Albumin Lvl 3.2 3.5 - 5.0 04/19 [facility] CHEM PANEL ALT 25 0 - 65 04/19 [facility] CHEM PANEL Alk Phos 65 39 - 136 04/19 [facility] CHEM PANEL Bili Total 0.2 0.2 - 1.3 04/19 [facility] CHEM PANEL Calcium Lvl 9.0 8.5 - 10.5 04/19 [facility] CHEM PANEL Total 6.7 6.4 - 8.4 04/19 Protein [facility] CHEM PANEL Glucose Lvl 288 70 - 99 04/19 [facility] CHEM PANEL BUN 18 7 - 22 04/19 [facility] CHEM PANEL Creatinine 1.13 0.50 - 04/19 MH Lvl 1.40 /2017 [facility] CHEM PANEL Sodium Lvl 143 135 - 145 04/19 [facility] CHEM PANEL Chloride Lvl 105 95 - 109 04/19 [facility] CHEM PANEL CO2 27 24 - 32 09 /2017 [facility] CHEM PANEL Potassium 4.5 3.5 - 5.1 04/19 Lvl /2017 [facility] CHEM PANEL AGAP 15.5 10.0 - 04/19 20.0 /2017 [facility] CHEM PANEL B/C Ratio 16 6 - 25 04/19 [facility] CHEM PANEL Globulin 3.5 2.7 - 4.2 04/19 [facility] CHEM PANEL A/G Ratio 0.9 0.7 - 1.6 04/19 /2017 [facility] HEMATOLOGY PTT 25.8 22.9 - 04/19 MH 35.8 /2017 [facility] HEMATOLOGY PT 14.0 12.0 - 04/19 MH 14.7 /2017 [facility] HEMATOLOGY INR 1.08 0.85 - 04/19 MH 1.17 /2017 [facility] HEMATOLOGY Platelet 162 133 - 450 04/19 [facility] HEMATOLOGY MPV 8.7 7.4 - 10.4 04/19 /2017 [facility] HEMATOLOGY MCH 29.7 27.0 - 04/19 MH 31.0 /2017 [facility] HEMATOLOGY RDW 15.0 11.5 - 04/19 14.5 /2017 [facility] HEMATOLOGY MCHC 33.1 32.0 - 04/19 MH 36.0 /2017 [facility] HEMATOLOGY MCV 89.8 80.0 - 04/19 98.0 /2017 [facility] HEMATOLOGY Hct 39.1 36.0 - 04/19 48.0 /2017 [facility] HEMATOLOGY WBC 6.0 3.7 - 10.4 04/19 /2017 [facility] HEMATOLOGY Hgb 12.9 12.0 - 04/19 MH 16.0 /2017 [facility] HEMATOLOGY RBC 4.35 4.20 - 04/19 MH 5.40 /2017 [facility] HEMATOLOGY Eosinophils 0.1 0.0 - 0.5 04/19 MH # /2018 [facility] HEMATOLOGY Neutrophils 3.5 1.5 - 8.1 04/19 MH # /2017 [facility] HEMATOLOGY Monocytes # 0.4 0.0 - 0.8 04/19 [facility] HEMATOLOGY Basophils 0.3 0.0 - 1.0 04/19 [facility] HEMATOLOGY Lymphocytes 1.9 1.0 - 5.5 04/19 MH # /2017 [facility] HEMATOLOGY Eosinophils 2.3 0.0 - 4.0 04/19 /2017 [place] HEMATOLOGY Monocytes 7.4 2.0 - 12.0 04/19 [facility] HEMATOLOGY Lymphocytes 31.6 20.0 - 04/19 MH 40.0 [facility] HEMATOLOGY Segs 58.4 45.0 - 04/19 75.0 /2017 [facility] SPECIAL Hgb A1C 10.3 <=5.6 % 04/19 CHEMISTRY /2017 [facility] URINE AND UA <=1.0 0.1 - 1.0 04/19 STOOL Urobilinogen mg/dL [facility] URINE AND UA Nitrite Negative Negative 04/19 STOOL (04/19/18 3:18 PM) /2017 [place] URINE AND UA Leuk Est Negative Negative 04/19 STOOL (04/19/18 3:18 PM) [facility] UR[facility] UA Sq Epi Few /LPF Few /LPF 04/19 STOOL [place] URINE AND UA WBC 1 0 - 5 04/19 STOOL [place] URINE AND UA Blood Negative Negative 04/19 STOOL (04/19/18 3:18 PM) /2017 [place] URINE AND UA RBC 5 0 - 2 04/19 STOOL [facility] URINE AND UA pH 5.0 5.0 - 8.0 04/19 STOOL /2017 [place] URINE AND UA Spec Grav 1.025 <=1.030 04/19 STOOL [facility] URINE AND UA Protein Negative Negative 04/19 [facility]OOL mg/dL mg/dL [facility] URINE AND UA Ketones Trace Negative 04/19 [facility] mg/dL mg/dL [facility] URINE AND UA Glucose 500 mg/dL Negative 04/19 [facility]OOL mg/dL [facility] URINE AND UA Turbidity Slight Clear 04/19 STOOL *ABN* /2017 [facility] (04/19/18 3:18 PM) URINE AND UA Color Yellow Yellow 04/19 STOOL *NA* /2017 [facility] (04/19/18 3:18 PM) URINE AND UA Bili Negative Negative 04/19 STOOL *NA* /2017 [facility] (04/19/18 3:18 PM) BLOOD BANK RBC product Product available 04/19 RESULTS (04/19/18 3:00 PM) [place] Pathology Reports No Data Provided for This Section Diagnostic Reports Report Value Date Source Barium Swallow w Barium Swallow w Esophagus Function DX 05/30/20 [facility] Esophagus Function DX COMPARISON: None CLINICAL HISTORY: - epigast bebeto pain; generalized abdominal pain, status post Heller myotomy for achalasia. TECHNIQUE: Thin barium was a dministered with the patient in the upright position. AP and oblique views of the esophagus, GE junction and stomach were subsequently performed. FINDINGS: There is no signif icant delay in passage of barium from the esophagus to the stomach. No leakage of contrast is visualized. On the overhead images perfo rmed immediately after the procedure and 15 minutes later, contrast is noted to extend from the stomach into proximal small bowel. No significant small bowel dilation is noted. Lung bases are clear. IMPRESSION: Negative postoperative study . No fluoroscopic evidence to suggest leak or obstruction. Prompt passage of barium from the stomach into proximal small bowel. [id number] Chest 2 views DX Patient Name: MANJINDER DODSON 04/19/2018 [facility] : 1965; Age: 52 years Female MR: [id number] Study: Chest 2 views DX Order Time: 04/19/2018 3 :01 PM CDT CLINICAL INDICATION: Coughing - preop COMPARISON: None FINDINGS: Lines: None. Lungs: Round 2.6 cm nodule p rojects over the left upper lobe. No significant effusion or pneumothorax. Mediastinum: The cardiac tashia houette is within normal limits of size. Midline trachea. Bones and soft tissues: No a cute abnormalities. Cervical spine fusion hardware. IMPRESSION: Round nodule (2.6 cm) projec ts over the left upper lobe. No comparison imaging available. Recommend CT chest for further characterization. SL: [id number] Barium Swallow w Fluoro Time and Dose: 6.1min/369.66mGy air kerm a 04/17/2018 [facility] Esophagus Function DX Barium Swallow w Esophagus Function DX COMPARISON: None CLINICAL HISTORY: - R13.10 Dysphagia, unspecified,K44.9 Diaphragmatic hernia without obstruction or gangrene. TECHNIQUE: Thin barium was u tilized for recumbent prone oblique and LPO images. [...] cm in size. Upright images with thick ba rium reveal moderate delay in passage of barium [...] the small bowel. IMPRESSION: Findings suggestive of achal tapan. Correlation with other clinical data and manometry study is recommended. The esophagus is not dilated Small hiatal hernia is visualized at the GE junc tion. SL: [id number] Consultation Notes No Data Provided for This Section Discharge Summaries No Data Provided for This Section History and Physicals No Data Provided for This Section Vital Signs Vital Sign Value Date Comments Source Systolic (mm Hg) 150 04/25/2018 [place] Diastolic (mm Hg) 75 04/25/[address] Systolic (mm Hg) 131 04/25/2018 [place] Diastolic (mm Hg) 83 04/25/[address] Systolic (mm Hg) 140 04/25/2018 [place] Diastolic (mm Hg) 81 04/25/[address] Respitory Rate 16 04/25/2018 [facility] Respitory Rate 16 04/25/2018 [facility] Respitory Rate 11 04/25/2018 [facility] Heart Rate 73 04/25/2018 [place] Respitory Rate 16 04/23/2018 [place] Systolic (mm Hg) 139 04/23/2018 [place] Diastolic (mm Hg) 86 04/23/[address] Respitory Rate 17 04/23/2018 [place] Systolic (mm Hg) 128 04/23/2018 [place] Diastolic (mm Hg) 76 04/23/[address] Respitory Rate 18 04/23/2018 [place] Systolic (mm Hg) 117 04/23/2018 [place] Diastolic (mm Hg) 68 04/23/[address] [facility] [address] Weight 113.636 04/23/2018 [facility] BMI Calculated 34.94 04/23/2018 [facility] Height 180.34 cm 04/23/2018 [facility] Temperature Oral (F) 97.8 F 04/19/2018 [place] Heart Rate 86 04/19/2018 [facility] BMI Calculated 34.66 04/19/2018 [facility] Weight 112.727 04/19/2018 [facility] Height 180.34 cm 04/19/2018 [facility] Encounters Location Location Encounter Encounter Reason Attending ADM ND Stat Source Details Type Number For Provider Date Date Visit [facility] Outpatient [id number] [facility] 04/17 04/18 [facility] [id number] [facility] 04/23 04/23 [facility] Inpatient [id number] [facility] 04/25 04/25 [facility] Outpatient [id number] [facility] 05/30 05/31 [facility] Procedures Procedure Code Date Perfomer Comments Source Amputation [id number] [facility] Colonoscopy [id number] [facility] Esophagogastroduodenoscopy [id number] [facility] Hysterectomy [id number] [facility] Resection [id number] [facility] Assessment and Plan Assessment and Plan Date Source Extracted from:Title: Clinical Document 04/25/2018 [facility] Author: Meseret Abbott MD Date: 04/25/18 PATIENT NAME: MARILEE DODSON DATE OF OPERATION/PROCEDURE: 04/25/2018 PREOPERATIVE DIAGNOSIS: 1. Achalasia 2. Regurgitation and dyspahgia POSTOPERATIVE DIAGNOSIS: 1. Achalasia 2. Regurgitation and dyspahgia SURGEON: Meseret Abbott M.D. NURSE FIRST ASSIST: [facility] assistants PROCEDURES PERFORMED: 1. Laparoscopic esophagomyotomy, Heller type. 2. Laparoscopic esophagogastric Rodrigo fundoplasty. 3. Upper endoscopy to evaluate the exte nt of myotomy, the repair and the presence of leak. INDICATIONS FOR PROCEDURE: Patient is a 52-year-old female with 5 y ears history of progressive dysphagia to solids and [...] Our plan was to perform a laparoscopic v ersus open Heller myotomy with a Rodrigo fundoplication and an upper endoscopy to assess the repair and the presence of leak. The risks of this procedure including infection, bleeding, risk of injury to i ntra-abdominal structures such as esophagus, stomach and spleen, postoperative leak, intraoperative pneumothorax requiring chest tube, recurrent dysphagia, gastro esophageal reflux and were all exp lained to the patient. He understood and agreed to proceed. PROCEDURE: The patient was brought to the operating room and was placed on the operating table in a supine position. After undergoing general endotracheal anesthesia, the operating room table was placed in the rev erse Trendelenburg position with his fee t spread apart. The patient's feet were secured to the operating table. The skin of the anterior abdomen was then prepped and draped in the usual sterile f ashion. A small incision was made just above the umbilicus. Subcutaneous tissues were dissected. Using the Omni port and a 0-degree camera, entrance to the abdominal cavity was performed without any injury to intra-abdominal structures. Pn eumoperitoneum was obtained. Under laparoscopic control, dissection ports were inserted. One 12-mm dissection port was placed in the left upper quadrant, one 11 mm retraction port was placed in the lef t lower quadrant. A 5-mm port was placed for liver retraction and a 5-mm working port was placed in the right upper quadrant. The liver retractor was inserted a nd the liver was retracted superiorly an d to the right. The procedure was begun by identifying the gastrohepatic ligament which was divided. The esophagus was from the right nitish as well as t he left nitish. Subsequently, the short g astric vessels were divided to about 1/4 of the distance from the cardia to [...] round this tissue to expose better the g astroesophageal junction and the distal esophagus, and to protect the vagus nerve. The esophagus was then dissected free on the left side from the left nitish all the way up to the level of the anterior aspect of the esoph ageal hiatus. The gastroesophageal junction was identi fied where the stomach flared up from the tubular esophagus. The site of the myotomy, which was on the left side of the esophagus was marked with the Bovie from the anterior esophageal hiatus down to b eyond the gastroesophageal junction on the stomach. Subsequently, the myotomy was performed using dissector. The esophageal muscle was found to be very thick. The myotomy was carried out using Myers ic Scalpel superiorly up to the level of the diaphragmatic hiatus. The hook electrocautery was then used to extend the myotomy inferiorly and this was brought be yond the gastroesophageal junction for a pproximately 3 cm. The extent of myotomy continued along the greater curvature. The myotomy included the left lateral surface of the esophagus at the highest po int of the anterior part of the esophage al hiatus and was extended on the stomach [...] of leak. Subsequently, a Rodrigo fundoplication was p erformed by placing interrupted stitches through the stomach [...] this opposed the mucosa of the stomach agains t the mucosa of the esophagus, so that the frenulum between the stomach and esophagus was just a folded mucosal layer. At the very apex of the esophageal hiatu s, one stitch was placed through the stomach, through the nitish and then through the esophagus above the myotomy site and then back through the nitish and was tied. This stitch anchored the uppermost por tion of the esophagus above the myotomy site to the nitish to prevent further. The stitches were then continued on the right side, suturing stomach and the free ma rgin myotomy site and the right side. O nce this had been completed, the stomach laid [...] 4-0 subcuticular stitches. The patient tolerated the pro cedure well, was extubated and was transferred to the postanesthesia recovery room without any complications. I was scrubbed and present for the entire procedure and performed the procedure from the beginning to the end. Plan of Care No Data Provided for This Section Social History Social History Date Source Social History TypeResponse 04/25/2018 [facility] Smoking Status Current every day smoker; Type: Cigarett es; Exposure to Tobacco Smoke self; Cigarette Smoking Last 365 Days Yes; Reg Smoking Cessation Counseling Yes; Other Tobacco Frequency 1 pk every 3 days; entered on: 04/25/18 Family History No Data Provided for This Section Advance Directives No Data Provided for This Section Functional Status No Data Provided for This Section
--- OUTSIDE RECORDS SUMMARY | 2020-01-16 04:14 | XMS REPORT ---
:1965 Author Organization [employer] Care Team Providers Name Role Phone Navneet Call Provider Role Unavailable Allergies No Known Allergies Problems Problem Type Condition Code Onset Dates Condition Statu s Problem Arthritis of knee, left M17.12 Acti ve Problem Arthritis of knee, right M17.11 Act kelin Problem Acute pain of right knee M25.561 Act kelin Problem Primary osteoarthritis of left knee M17.12 Active Problem Primary osteoarthritis of right M17.11 Active knee Medications No Known Medications Results No Known Results Summary Purpose eClinical[employer] Submission
--- OUTSIDE RECORDS SUMMARY | 2020-01-16 04:14 | XMS REPORT ---
[...] Start End Status Dosage System Date Date Tramadol HCl [facility] [id number] 50 MG Orally 1 January 14January Active as directed PO Q 6 HRS PRN 2019 10, PAIN 2020 Results No Known Results Summary Purpose [employer]Clinical[employer] Submission
--- OUTSIDE RECORDS SUMMARY | 2020-01-16 04:14 | XMS REPORT | Continuity of Care Document ---
:1965 Author Organization [facility] t Address [address] [place] [address] Care Team Providers Name Role Phone BANKI Attending Clinician Unavailable Banki Attending Clinician Banki Admitting Clinician Problems Condition Condition Condition Status Onset Resolution Last Treating Co mments Source Name Details Category Date Date Treatment Clinician Date DX: Diagnosis Active 2017-072018-07-11 Mem oria R13.10=DYS -07 12:49:00 l PHAGIA, DX: 00:00: Mario UNSPECIFIE R13.10=DYS 00 D, R10.1 PHAGIA, UNSPECIFIE D, R10.1 Active 05/29/2018 [facility] UNK Diagnosis Active 2018-04-23 Mem oria 04-17 08:18:00 l UNK 00:00: [place] 00 Active 04/17/2018 [facility] GERD WO Diagnosis Active 2018-04-25 Me moria ESOPHAGITI 04-17 06:46:00 l S GERD WO 00:00: [place] ESOPHAGITI 00 S Active 04/17/2018 [facility] K21.9, Diagnosis Active 2018-04-17 Mem oria R13.10, 04-04 08:54:00 l K44.9 K21.9, 00:00: [place] R13.10, 00 K44.9 Active 04/04/2018 [facility] Primary Primary Problem Active [facility] oste[facility] osteoarthr Jeannette kes - itis of itis [facility] left knee left knee [facility] Primary Primary Problem Active [facility] osteoarthr osteoarthr Jeannette kes - itis [facility] right knee right knee [facility] Acute pain Acute pain Problem Active [facility] History of History of Problem Resolve Univers bipolar bipolar HL7.CCDAR2 d ity of disorder disorder [place] [facility] History of History of Problem Resolve Univers deep deep HL7.CCDAR2 d ity of venous venous [place] thrombosis thrombosis Ph ysici ans History of History of Problem Resolve Univers diabetes diabetes HL7.CCDAR2 d it y of mellitus mellitus [place] [facility] History of History of Problem Resolve Univers hyperchole hyperchole HL7.CCDAR2 d ity of sterolemia sterolemia [place] [facility] History of History of Problem Resolve Univers pulmonary pulmonary HL7.CCDAR2 d ity of embolism embolism [place] [facility] History of History of Problem Resolve Univers Cervical Cervical HL7.CCDAR2 d it [place] of dys[place] [facility] History of History of Problem Resolve Univers Abdominal Abdominal HL7.CCDAR2 d [place]y of discomfort discomfort [place] [facility] History of History of Problem Resolve Univers Achalasia Achalasia HL7.CCDAR2 d ity of [place] [facility] History of History of Problem Resolve Univers heartburn heartburn HL7.CCDAR2 d ity of [place] [facility] History of History of Problem Resolve Univers hiatal hiatal HL7.CCDAR2 d ity of hernia hernia [place] [facility] History of History of Problem Resolve Univers vomiting vomiting HL7.CCDAR2 d it y of [place] [facility] Aftercare Aftercare Problem Active Uni vers following following HL7.CCDAR2 ity of surgery surgery [place] [facility] Dysphagia, Problem 2018-12-18 M emoria unspecifie 11:14:16 l d [place] Dysphagia, unspecifie d 12/18/2018 [facility] Gastro-eso Problem 2018-12-18 M emoria phageal 11:14:16 l reflux [place] disease Gastro-eso without phageal esophagiti reflux s disease without esophagiti s 12/18/2018 [facility] Diaphragma Problem 2018-11-04 M emoria tic hernia 12:20:16 l without [place] 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 11/04/2018 [facility] Gastritis, Problem 2018-11-10 M emoria unspecifie 12:35:52 l d, without Jb n bleeding Gastritis, unspecifie d, without bleeding 11/10/2018 [facility] Chronic Problem 2018-11-10 Tae ivan obstructiv 12:35:52 l e Chronic [place] pulmonary obstructiv disease, e unspecifie pulmonary d disease, unspecifie d 11/10/2018 [facility] Sleep Problem 2018-11-10 Memor ia apnea, 12:35:52 l unspecifie Sleep Lynsey nn d apnea, unspecifie d 11/10/2018 [facility] Type 2 Problem 2018-11-12 Memor ia diabetes 12:44:11 l mellitus Type 2 Jb n without diabetes complicati mellitus ons without complicati ons 11/12/2018 [facility] correction Problem 2018-11-10 Me moria (current) 12:35:52 l use of Long [place] oral term hypoglycem (current) ic drugs use of oral hypoglycem ic drugs 11/10/2018 [facility] Other long Problem 2018-11-10 M emoria term 12:35:52 l (current) Other Jb n drug long term care social worker therapy (current) drug therapy 11/10/2018 [facility] Nicotine Problem 2018-11-12 Mem oria dependence 12:44:11 l , Nicotine Jb n cigarettes dependence , , uncomplica cigarettes noris , uncomplica noris 11/12/2018 [facility] Deep Problem Resolve 2018-12-18 Tae ivan venous d 11:14:16 l thrombosis Deep Jb n (disorder) venous thrombosis (disorder) Resolved Problem 12/18/2018 [facility] Pulmonary Problem Resolve 2018-12-18 M emoria thromboemb d 11:14:16 l olism Mario (disorder) Pulmonary thromboemb olism (disorder) Resolved Problem 12/18/2018 [facility] Anxiety Problem Active 2018-12-18 Tae ivan (finding) 11:14:16 l Anxiety [place] (finding) Active Problem 12/18/2018 [facility] Chronic Problem Active 2018-12-18 Tae ivan obstructiv 11:14:16 l e lung Chronic Mario disease obstructiv (disorder) e lung disease (disorder) Active Problem 12/18/2018 [facility] Diabetes Problem Active 2018-12-18 Mem oria mellitus 11:14:16 l (disorder) Diabetes He rmann mellitus (disorder) Active Problem 12/18/2018 [facility] Dyspnea on Problem Active 2018-12-18 M emoria exertion 11:14:16 l (finding) Dyspnea Herm ayana on exertion (finding) Active Problem 12/18/2018 [facility] Gastroesop Problem Active 2018-12-18 M emoria hageal 11:14:16 l reflux [place] disease Gastroesop (disorder) hageal reflux disease (disorder) Active Problem 12/18/2018 [facility] Pulmonary Problem Active 2018-12-18 Me moria emphysema 11:14:16 l (disorder) Jb n Pulmonary emphysema (disorder) Active Problem 12/18/2018 [facility] Sleep Problem Active 2018-12-18 Memor ia apnea 11:14:16 l (finding) Sleep Jb n apnea (finding) Active Problem 12/18/2018 [facility] DYSPHAGIA, Diagnosis Active 2018-07-11 Memoria UNSPECIFIE 12:49:00 l D [place] DYSPHAGIA, UNSPECIFIE D Active [facility] GASTRO-ESO Diagnosis Active 2018-04-25 Memoria PHAGEAL 06:46:00 l REFLUX Mario DISEASE GASTRO-ESO WITHOUT PHAGEAL REFLUX DISEASE WITHOUT Active [facility] DIAPHRAGMA Diagnosis Active 2018-04-17 Memoria TIC HERNIA 08:54:00 l WITHOUT [place] OBSTRUCTIO DIAPHRAGMA N TIC HERNIA WITHOUT OBSTRUCTIO N Active [facility] Epigastric Problem 2017-072018-12-18 2018-12-18 Memoria pain 2-28 11:14:16 11:14:16 l 04:44: [place] Epigastric 43 pain 07/19/2018 12/18/2018 [facility] Achalasia Problem 2017-072018-11-12 2018-11-12 Memoria of cardia 0-10 12:44:11 12:44:11 l 03:32: [place] Achalasia 00 of cardia 05/01/2018 11/12/2018 [facility] Allergies, Adverse Reactions, Alerts Allergy Allergy Status Severity Reaction(s) Onset Inactive Treating Comm ents Source Name Type Date Date Clinician Penicill drug Active Univers ins allergy [facility] [place] [facility] penicill Adverse Active Info Not [facility] Amoxicil Adverse Active Info Not [facility] crissy Reaction Available [facility] penicill penicill Active Memori a ins ins l Marioayana Alfaro Active Memoria l [place] Family History Family Member Diagnosis Comments Start Date Stop Date Source Mother Family history of [facility] [place] malignant neoplasm Physic ians of breast Social History Smoking Status Start Date Stop Date Source Smoker. current status [facility] [place] unknown Physicians Social History 2018-04-25 13:52:33 [facility] Her myers Medications Ordered Filled Start Stop Current Ordering Indication Dosage Frequency Signature Comments Components Source Medication Medication Date Date Medication? Clinician (SIG) Name Name Tramadol Tramadol 2019- Yes Navneet Ba HCl HCl 01-14 Call manjit Armida - 00:00: 00:00 [facility] Oxycodone 2017-07 No 5 mg, 5 Memor ia Hydrochlori 0-04 mL, Route: l de 1 MG/ML 17:47: PO, ONCE, He rmann Oral 00 Dosing Solution Weight 113.636, kg, Start date: 04/25/18 12:47:00 CDT, Stop date: 04/25/18 12:47:00 CDT Labetalol 2017-07 No 10 mg, Memori a 0-04 Route: l 16:19: IVP, [place] 00 Q5Min, Dosing Weight 113.636, kg, PRN Elevated BP, Start date: 04/25/18 11:19:00 CDT, Duration: 5 doses or times, Stop date: Limited # of times Hydralazine 2017-07 No 10 mg, Tae ivan 0-04 Route: l 16:19: IVP, [place] 00 Q20Min, Dosing Weight 113.636, kg, PRN Elevated BP, Start date: 04/25/18 11:19:00 CDT, Duration: 2 doses or times, Stop date: Limited # of times Oxycodone 2017-07 No 5 mg, Memoria 0-04 Route: PO, l 16:19: Drug form: Mario 00 TAB, Q4H, Dosing Weight 113.636, kg, PRN Pain Score 4-6, Start date: 04/25/18 11:19:00 CDT, Duration: 30 day, Stop date: 05/25/18 11:18:00 CDT Diphenhydra 2017-07 No 12.5 mg, Me moria mine 0-04 Route: l 16:19: IVP, Drug [place] 00 form: INJ, Q6H, Dosing Weight 113.636, kg, PRN Itching, Start date: 04/25/18 11:19:00 CDT, Duration: 30 day, Stop date: 05/25/18 11:18:00 CDT Naloxone 2017- No 0.1 mg, Memori a 0-04 Route: l 16:19: SUB-Q, [place] 00 Q6H, Dosing Weight 113.636, kg, PRN Itching, Start date: 04/25/18 11:19:00 CDT, Duration: 30 day, Stop date: 05/25/18 11:18:00 CDT Albuterol 2017-07 No 2.49 mg, Tae ivan 0.83 MG/ML 0-04 Route: l Inhalant 16:19: NEB, Mario Solution 00 Q20Min, Dosing Weight 113.636, kg, PRN Wheezing, Priority: STAT, Start date: 04/25/18 11:19:00 CDT, Duration: 30 day, Stop date: 05/25/18 11:18:00 CDT Hydromorpho 2017-07 No 0.5 mg, Mem oria ne 0-04 Route: l 16:19: IVP, [place] 00 Q5Min, Dosing Weight 113.636, kg, PRN Pain Score 7-10, Start date: 04/25/18 11:19:00 CDT, Duration: 4 doses or times, Stop date: Limited # of times Meperidine 2017-07 No 12.5 mg, Mem oria 0-04 Route: l 16:19: IVP, Mario 00 Q30Min, Dosing Weight 113.636, kg, PRN Other -See Comment, For shivering, Start date: 04/25/18 11:19:00 CDT, Duration: 2 doses or times, Stop date: Limited # of times Fentanyl 2017- No 25 Memoria 0-04 microgram, l 16:19: Route: Mario 00 IVP, Q5Min, Dosing Weight 113.636, kg, PRN Pain Score 4-6, Priority: Routine, Start date: 04/25/18 11:19:00 CDT, Duration: 4 doses or times, Stop date: Limited # of times Flumazenil 2017-07 No 0.2 mg, Tae ivan 0-04 Route: l 16:19: IVP, PRN, [place] 00 Dosing Weight 113.636, kg, PRN Benzodiaze pine Reversal, Initial dose, Start date: 04/25/18 11:19:00 CDT, Duration: 30 day, Stop date: 05/25/18 11:18:00 CDT 72 HR 2017-07 No 1 patch, Memoria Scopolamine 0-04 Route: l 0.0139 16:19: TOP, Drug Jb n MG/HR 00 Form: Transdermal ERFILM, Patch Dosing Weight 113.636, kg, ONCE, Apply behind ear. Avoid use in elderly., Start date: 04/25/18 11:19:00 CDT, Stop date: 04/25/18 11:19:00 CDT Promethazin 2017-07 No 6.25 mg, Me moria e 0-04 Route: l 16:19: IVPB, [place] 00 ONCE, Dosing Weight 113.636, kg, PRN Nausea & Vomiting, Start date: 04/25/18 11:19:00 CDT Ondansetron 2017-07 No 4 mg, Memor ia 0-04 Route: l 16:19: IVP, ONCE, Dosing Weight 113.636, kg, PRN Nausea & Vomiting, Start date: 04/25/18 11:19:00 CDT levofloxaci 2017-07 No Route: IV, Memoria n (ANES) 0-04 Drug form: l 14:59: INJ, ONCE, Stop date: 04/25/18 9:59:00 CDT fentaNYL 2017-07 No Route: IV, Mem oria (ANES) 0-04 Drug form: l 14:44: INJ, ONCE, Stop date: 04/25/18 9:44:00 CDT lidocaine 2017-07 No Route: IV, Me moria (ANES) 0-04 Drug form: l 14:44: INJ, ONCE, Mario 00 Stop date: 04/25/18 9:44:00 CDT rocuronium 2017-07 No Route: IV, M emoria (ANES) 0-04 Drug form: l 14:44: INJ, ONCE, Stop date: 04/25/18 9:44:00 CDT propofol 2017-07 No Route: IV, Mem oria (ANES) 0-04 Drug form: l 14:44: INJ, ONCE, Mario 00 Stop date: 04/25/18 9:44:00 CDT ondansetron 2017-07 No Route: IV, Memoria (ANES) 0-04 Drug form: l 14:44: INJ, ONCE, [place] 00 Stop date: 04/25/18 9:44:00 CDT acetaminoph 2017-07 No Route: IV, Memoria en (ANES) 0-04 Drug form: l 14:44: INJ, ONCE, [place] 00 Stop date: 04/25/18 9:44:00 CDT famotidine 2017-07 No Route: IV, M emoria (ANES) 0-04 Drug form: l 14:44: INJ, ONCE, Stop date: 04/25/18 9:44:00 CDT scopolamine 2017-07 No Route: IV, Memoria (ANES) 0-04 Drug form: l 14:44: ERFILM, ONCE, Stop date: 04/25/18 9:44:00 CDT dexamethaso 2017-07 No Route: IV, Memoria ne (ANES) 0-04 Drug form: l 14:44: INJ, ONCE, Stop date: 04/25/18 9:44:00 CDT midazolam 2017-07 No Route: IV, Me moria (ANES) 0-04 Drug form: l 14:34: SOLN, [place] 00 ONCE, Stop date: 04/25/18 9:34:00 CDT Sodium 2017-07 No Route: IV, Memor ia Chloride 0-04 Total l 0.9% IV 13:58: Volume: Mario (ANES) 1000 00 1,000, mL Start date: 04/25/18 8:58:00 CDT, Stop date: 04/25/18 9:58:00 CDT Calcium 2017-07 No 1,000 mL, Memor ia Chloride 0-04 Rate: 25 l 0.0014 13:50: ml/hr, Mario MEQ/ML / 00 Infuse Potassium over: 40 Chloride hr, Route: 0.004 IV, Dosing MEQ/ML / Weight Sodium 113.636 Chloride kg, Total 0.103 Volume: MEQ/ML / 1,000, Sodium Start Lactate date: 0.028 04/25/18 MEQ/ML 8:50:00 Injectable CDT, Solution Duration: 30 day, Stop date: 05/25/18 8:49:00 CDT, 2.41, m2 Lactated 2017-07 No Route: IV, Mem oria Ringers 0-04 Total l Injection 13:49: Volume: Lynsey nn IV (ANES) 00 1,000, 1000 mL Start date: 04/25/18 8:49:00 CDT, Stop date: 04/25/18 9:49:00 CDT heparin 2017- No Route: Memoria sodium, 0-04 SUB-Q, l porcine 13:00: Drug form: Herm ayana 2500 UNT/ML 00 INJ, Injectable ONCALL, Solution Dosing Weight 113.636, kg, Start date: 04/25/18 8:00:00 CDT, Duration: 30 day, Stop date: 05/25/18 7:59:00 CDT Insulin 2017-07 No 4 unit, Memoria regular 0-04 Route: IV, l 12:58: ONCE, Mario Dosing Weight 113.636, kg, Start date: 04/25/18 7:58:00 CDT, Stop date: 04/25/18 7:58:00 CDT Sodium 2017-07 No 500 mL, Memoria Chloride 0-02 Rate: 25 l 0.9% IV 500 12:17: ml/hr, Herm ayana mL 00 Infuse over: 20 hr, Route: IV, Dosing Weight 112.727 kg, Total Volume: 500, Start date: 04/23/18 7:17:00 CDT, Duration: 30 day, Stop date: 05/23/18 7:16:00 CDT, 2.4, m2 Tresiba 2018- Yes 100 units, Tae ivan FlexTouch 9-28 SUB-Q, QAM l 19:59: (Insulin), 0 Refill(s) Humalog 2018- Yes 15 unit, Memori a 9-28 SUB-Q, l 19:59: TID-Before Meals, 0 Refill(s) rivaroxaban 2017- Yes 20 mg = 1 M emoria 20 MG Oral 9-28 tab, PO, l Tablet 19:59: QPM, # 30 Jb n [Xarelto] 00 tab, 3 Refill(s) Fenofibrate 2017- Yes 145 mg = 1 Memoria 145 MG Oral 9-28 tab, PO, l Tablet 19:58: Bedtime, 0 Lynsey nn 00 Refill(s) OLANZapine Yes 10 mg = 1 Me moria 10 mg oral -28 tab, PO, l tablet 19:58: QPM, 0 [place] 00 Refill(s) 24 HR Yes 3 tabs, Memoria Divalproex 04-19 PO, l Sodium 500 19:58: Bedtime, 0 H ermann MG Extended 00 Refill(s) Release Tablet [Depakote] pantoprazol Yes 40 mg = 1 M emoria e 40 mg 04-19 tab, PO, l oral 19:57: BID, 0 [place] enteric 00 Refill(s) coated tablet pregabalin Yes 150 mg = 1 M emoria 150 MG Oral 04-19 cap, PO, l Capsule 19:57: QAM, 0 Mario [Lyrica] 00 Refill(s) venlafaxine Yes 150 mg = 1 Memoria 150 mg oral 04-19 tab, PO, l tablet, 19:57: QAM, # 30 Lynsey nn extended 00 tab, 0 release Refill(s) olanzapine Yes 5 mg = 1 Mem oria 5 MG Oral -28 tab, PO, l Tablet 19:56: QAM, 0 [place] 00 Refill(s) pioglitazon Yes 30 mg = 1 M emoria e 30 mg -28 tab, PO, l oral tablet 19:56: QAM, 0 Herm ayana 00 Refill(s) Alprazolam Yes 1 mg = 1 Mem oria 1 MG Oral 04-19 tab, PO, l Tablet 19:55: QAM, 0 Mario [Xanax] 00 Refill(s) metFORMIN Yes 1,000 mg = Me moria 500 mg oral 04-19 2 tab, PO, l tablet, 19:55: BID, 0 Mario extended 00 Refill(s) release MetFORMIN MetFORMIN Yes R.N. Unive rs HCl - 500 HCl - 500 ity o f MG Oral MG Oral [place] Tablet Tablet Physici ans ALPRAZolam ALPRAZolam Yes R.N. Uni vers 1 MG Oral 1 MG Oral ity o f Tablet Tablet [place] [facility] OLANZapine OLANZapine Yes R.N. Uni vers 5 MG Oral 5 MG Oral ity o f Tablet Tablet [place] [facility] Venlafaxine Venlafaxine Yes R.N. U nivers HCl ER 150 HCl ER 150 ity of MG Oral MG Oral [place] Tablet Tablet Physici Extended Extended ans Release 24 Release 24 Hour Hour Lyrica 150 Lyrica 150 Yes R.N. Uni vers MG Oral MG Oral ity of Capsule Capsule [place] [facility]ici ans Pantoprazol Pantoprazol Yes R.N. U nivers e Sodium 40 e Sodium 40 i ty of MG Oral MG Oral [place] Tablet Tablet Physici Delayed Delayed ans Release Release Depakote Depakote Yes R.N. Univers 500 MG Oral 500 MG Oral i ty of Tablet Tablet [place] Delayed Delayed Physici Release Release ans OLANZapine OLANZapine Yes R.N. Uni vers 10 MG Oral 10 MG Oral ity of Tablet Tablet [place] [facility]ici ans Fenofibrate Fenofibrate Yes R.N. U nivers 145 MG Oral 145 MG Oral i ty of Tablet Tablet [place] [facility]ici ans Xarelto 20 Xarelto 20 Yes R.N. Uni vers MG Oral MG Oral ity of Tablet Tablet [place] [facility]ici ans HumaLOG HumaLOG Yes R.N. Univers SOLN SOLN [facility] of [place] [facility]ici ans Tresiba Tresiba Yes R.N. Univers FlexTouch FlexTouch ity o f 100 UNIT/ML 100 UNIT/ML [place] Subcutaneou Subcutaneou P hysici s Solution s Solution ans Pen-injecto Pen-injecto r r Vital Signs Vital Name Observation Time Observation Value Comments Source BP Systolic 2018-05-30 138 mm[Hg] Location: [facility] :: Position: [place] [facility] s Sitting BP Diastolic 2018-05-30 91 mm[Hg] Location: [facility] 14:10:00 Position: [place] Physician s Sitting Height 2018-05-30 71 [in_us] [facility] 14:10:00 [place] [facility] s Weight 2018-05-30 249.375 [lb_av] [place] [facility] 14:10:00 [place] [facility] Body Mass Index 2018-05-30 34.78 kg/m2 [place] [facility] Calculated 14:10:00 [place] [facility] s Temperature 2018-05-30 98 [degF] Method: Oral [facility] 14:10:00 [place] [facility] s Heart Rate 2018-05-30 80 /min Quality: Normal University o f 14:10:00 [place] [facility] s Respiration Rate 2018-05-30 18 /min Quality: Normal Universi ty of 14:10:00 [place] [facility] s O2 SAT 2018-05-30 97 % Source: [facility] 14:10:00 [place] [facility] s BP Systolic 2018-05-01 126 mm[Hg] Location: [facility] 11:46:00 Position: [place] Physician s Sitting BP Diastolic 2018-05-01 75 mm[Hg] Location: [facility] 11:46:00 Position: [place] Physician s Sitting Height 2018-05-01 71 [in_us] University 11:46:00 [place] [facility]ician s Weight 2018-05-01 254.125 [lb_av] [place] [facility] 11:46:00 [place] [facility] Body Mass Index 2018-05-01 35.44 kg/m2 [place] [facility] Calculated 11:46:00 [place] [facility] s Temperature 2018-05-01 98.4 [degF] Method: Oral University 11:46:00 [place] [facility] Heart Rate 2018-05-01 76 /min Quality: Normal University o f 11:46:00 [place] [facility] s Respiration Rate 2018-05-01 19 /min Quality: Normal Universi ty of 11:46:00 [place] [facility] s O2 SAT 2018-05-01 95 % Source: [facility] 11:46:00 [place] [facility] Systolic (mm Hg) 2018-04-25 [facility] 18:30:00 Diastolic (mm Hg) 2018-04-25 [facility] H ermann 18:30:00 Systolic (mm Hg) 2018-04-25 [facility] 18:00:00 Diastolic (mm Hg) 2018-04-25 [facility] H ermann 18:00:00 Systolic (mm Hg) 2018-04-25 [facility] 17:45:00 Diastolic (mm Hg) 2018-04-25 [facility] H ermann 17:45:00 Respitory Rate 2018-04-25 [facility] ayana 17:30:00 Respitory Rate 2018-04-25 [facility] 17:00:00 Respitory Rate 2018-04-25 [facility] 16:45:00 Heart Rate 2018-04-25 [facility] Jb n 12:38:00 Respitory Rate 2018-04-23 [facility] 13:45:00 Systolic (mm Hg) 2018-04-23 [facility] 13:45:00 Diastolic (mm Hg) 2018-04-23 [facility] ermann 13:45:00 Respitory Rate 2018-04-23 [facility] ayana 13:30:00 Systolic (mm Hg) 2018-04-23 [facility] 13:30:00 Diastolic (mm Hg) 2018-04-23 [facility] ermann 13:30:00 Respitory Rate 2018-04-23 [facility] ayana 13:15:00 Systolic (mm Hg) 2018-04-23 [facility] Tonny rmann 13:15:00 Diastolic (mm Hg) 2018-04-23 [facility] Kaushik ermann 13:15:00 Weight 2018-04-23 Lee Jb n 12:17:00 BMI Calculated 2018-04-23 [facility] 12:17:00 Height 2018-04-23 180.34 cm Lee Marshallan n 12:17:00 Temperature Oral 2018-04-19 97.8 F Lee [place] rmann (F) 19:59:00 Heart Rate 2018-04-19 Lee Marshallan n 19:59:00 BMI Calculated 2018-04-19 [facility]ana 19:52:00 Weight 2018-04-19 [facility] Jb n 19:52:00 Height 2018-04-19 180.34 cm Lee Marshallan n 19:52:00 BP Systolic 2018-04-17 126 mm[Hg] Location: [facility] 09:58:00 Position: [place] [facility]ician s Sitting BP Diastolic 2018-04-17 81 mm[Hg] Location: [facility] 09:58:00 Position: [place] Physician s Sitting Height 2018-04-17 71 [in_us] [facility] 09:58:00 [place] [facility] s Weight 2018-04-17 248.375 [lb_av] University o f 09:58:00 [place] [facility] Body Mass Index 2018-04-17 34.64 kg/m2 University o f Calculated 09:58:00 [place] [facility] s Temperature 2018-04-17 98.3 [degF] Method: Oral [place] of 09:58:00 [place] [facility] Heart Rate 2018-04-17 83 /min Quality: Normal University o f 09:58:00 [place] [facility] s Respiration Rate 2018-04-17 18 /min Quality: Normal Universi of 09:58:00 [place] [facility] s O2 SAT 2018-04-17 95 % Source: [facility] 09:58:00 [place] [facility] s Procedures Procedure Date / Time Performing Source Performed Clinician History of Appendectomy Universi ty [facility] History of Neck surgery Universi ty [facility] History of Hysterectomy Universi ty [facility] History of Colon Surgery Univers ity [facility] Physicians History of Back Surgery Universi ty [facility] Physicians History of Heller Myotomy Univ sity of Laparoscopic Approach [place] [facility] Amputation [facility] Colonoscopy [facility] Esophagogastroduodenoscopy Memor ial [place] Resection [facility] Encounters Start End Encounter Admission Attending Care Care Encounter Source Date/Time Date/Time Type Type Clinicians Facility Department ID 2020-01-14 2020-01-14 [facility]patient [facility] [id number] [facility] 09:18:00 09:18:00 [facility] 2019-12-04 2019-12-04 [facility] [id number] [facility] 11:00:00 11:00:00 [facility] 2019-11-20 2019-11-20 [facility] [id number] [facility] 16:22:00 16:22:00 [facility] 2019-10-06 2019-10-06 [facility] [id number] [facility] 11:00:00 11:00:00 [facility] 2019-09-29 2019-09-29 [facility] [id number] [facility] 13:10:00 13:10:00 [facility] 2019-09-11 2019-09-11 [facility] [id number] [facility] 13:30:00 13:30:00 [facility] 2019-09-01 2019-09-01 [facility] [id number] [facility] 09:16:00 09:16:00 [facility] 2019-08-29 2019-08-29 [facility] [id number] 08:18:00 08:18:00 [facility] 2019-08-22 2019-08-22 [facility] [id number] 09:00:00 09:00:00 [facility] 2019-08-20 2019-08-20 [facility] [id number] 15:48:00 15:48:00 t [facility] 2019-08-18 2019-08-18 [facility] [id number] [facility] 12:00:00 12:00:00 t [facility] 2019-08-06 2019-08-06 [facility] [id number] 13:30:00 13:30:00 t [facility] 2019-08-04 2019-08-04 [facility] [id number] 11:00:00 11:00:00 t [facility] 2019-07-29 2019-07-29 [facility] [id number] 16:13:00 16:13:00 t [facility] 2019-07-21 2019-07-21 [facility] [id number] [address] 11:09:00 11:09:00 t [facility] 2019-07-10 2019-07-10 [facility] [id number] [address] 13:30:00 13:30:00 t [facility] 2019-06-12 2019-06-12 [facility] [id number] [address] 11:37:00 11:37:00 t [facility] 2019-06-09 2019-06-09 [facility] [id number] [address] 14:59:00 14:59:00 t [facility] 2019-06-09 2019-06-09 [facility] [id number] [address] 08:00:00 08:00:00 t [facility] 2019-05-28 2019-05-28 [facility] [id number] [address] 09:16:00 09:16:00 t [facility] 2019-05-27 2019-05-27 [facility] [id number] [address] 15:03:00 15:03:00 t [facility] 2019-05-22 2019-05-22 [facility] [id number] [facility] 13:30:00 13:30:00 t [facility] 2019-05-08 2019-05-08 [facility] [id number] [address] 09:55:00 09:55:00 t [facility] 2019-05-06 2019-05-06 [facility] [id number] 14:30:00 14:30:00 t [facility] 2019-05-02 2019-05-02 Outpatient Timmy Warnert [id number] [address] 10:23:00 10:23:00 t [facility] 2019-04-28 2019-04-28 Outpatient Timmy [place] [id number] 08:46:00 08:46:00 t [facility] 2019-04-22 2019-04-22 Outpatient Timmy Warnert [id number] [address] 08:00:00 08:00:00 t [facility] 2019-04-17 2019-04-17 Outpatient Timmy Warnert [id number] [address] 13:30:00 13:30:00 t [facility] 2019-04-14 2019-04-14 Outpatient Timmy [place] [id number] [address] 13:21:00 13:21:00 t [facility] 2019-04-14 2019-04-14 Outpatient Timmy [place] [id number] [address] 11:15:00 11:15:00 t [facility] 2018-07-31 2018-07-31 Appointmen CINDY ABBOTT [id number] [facility] 09:15:00 09:15:00 t; NABOR ABBOTT it y of FARZANEH, M.D. [place] M.D. [facility] 2018-05-30 2018-05-30 Outpatient SHARONDA Abbott [facility] [id number] 13:00:00 23:59:00 Nabor 03 2018-05-30 2018-05-30 [id number] 14:00:00 14:00:00 t; NABOR ABBOTT cic and Antonieta M.D. Vascular [facility] 2018-05-01 2018-05-01 Appointmen MILENACINDY [facility] [id number] [facility] 11:15:00 11:15:00 t; NABOR ABBOTT cic and Antonieta M.D. Vascular [facility] at [facility] ans 2018-04-25 2018-04-25 Outpatient Milena [facility] [id number] 06:46:00 13:58:00 Nabor 2018-04-23 2018-04-23 Outpatient Milena [facility] [id number] 05:57:00 09:10:00 Naobr 2018-04-17 2018-04-17 Outpatient Milena [facility] [id number] 08:16:00 23:59:00 Nabor 2018-04-17 2018-04-17 Appointmen MILENACINDY [facility] [id number] [facility] 09:00:00 09:00:00 t; NABOR ABBOTT cic and Antonieta M.D. Vascular [facility] Surgery at [facility] Results Test Description Test Time Test Comments Results Result Sourc e Comments BLOOD BANK RESULTS 2018-04-19 Negative Memori al 20:18:00 (04/19/18 3:18 Mario PM) CHEM PANEL 2018-04-19 56 [facility] 20:18:00 [place] CHEM PANEL 2018-04-19 21 [facility] 20:18:00 [place] CHEM PANEL 2018-04-19 3.2 [facility] 20:18:00 Mario CHEM PANEL 2018-04-19 25 [facility] 20:18:00 [place] CHEM PANEL 2018-04-19 65 [facility] 20:18:00 [place] CHEM PANEL 2018-04-19 0.2 [facility] 20:18:00 [place] CHEM PANEL 2018-04-19 9.0 [facility] 20:18:00 [place] CHEM PANEL 2018-04-19 6.7 [facility] 20:18:00 [place] CHEM PANEL 2018-04-19 288 [facility] 20:18:00 [place] CHEM PANEL 2018-04-19 18 [facility] 20:18:00 [place] CHEM PANEL 2018-04-19 1.13 [facility] 20:18:00 [place] CHEM PANEL 2018-04-19 143 [facility] 20:18:00 [place] CHEM PANEL 2018-04-19 105 [facility] 20:18:00 [place] CHEM PANEL 2018-04-19 27 [facility] 20:18:00 [place] CHEM PANEL 2018-04-19 4.5 [facility] 20:18:00 [place] CHEM PANEL 2018-04-19 15.5 [facility] 20:18:00 [place] CHEM PANEL 2018-04-19 20:18:00 Test Item Value Reference Range Interpretation Comme nts B/C Ratio (test code = B/C Ratio) 16 1 6-25 [facility] HermannCHEM [id number] 20:18:003.5[facility]ann[facility] PANEL 2018-04-19 20:18:00 Test Item Value Reference Range Interpretation Comments A/G Ratio (test code = A/G Ratio) 0.9 1 0.7-1.6 [facility]vblztkUVDWSPLBOC5944-29-54 20:18:00 Test Item Value Reference Range Interpretation Comments PTT (test code = PTT) 25.8 s 22.9-35.8 [facility]hlmLTXNYQZSKP9021-92-12 20:18:00 Test Item Value Reference Range Interpretation Comments PT (test code = PT) 14.0 s 12.0-14.7 [facility] HospitalBpsxshkZPZRGAOKLI3467-80-37 20:18:00 Test Item Value Reference Range Interpretation Comments INR (test code = INR) 1.08 1 0.85-1.17 [facility] HospitalFumvknpTUVBPJBYJC4008-59-15 20:18:15347Iagnqtzf HermannHEMATOLOGY 2018-04-19 20:18:008.7[facility] TwevhsbVTTBOHHNUG8228-32-45 20:18:00 Test Item Value Reference Range Interpretation Comments MCH (test code = MCH) 29.7 pg 27.0-31.0 [facility] HospitalAvuhtgvLOROYHLZJC9926-52-11 20:18:0015.0[facility]ann[facility]MATOLOGY 2018-04-19 20:18:0033.1[facility] BkgpqulRVODQYMXTK1251-00-73 20:18:0089.8[facility] OziolgsATMVVOSQDP3030-27-36 20:18:0039.1[facility] WdiprhkQREZKCRFTR7628-53-09 20:18:006.0[facility] SqasebdOSYAYBEOKQ6317-87-41 20:18:0012.9[facility] Mario MXINCKVWZX2444-06-92 20:18:004.35[facility] VrbqbvjLUZGKULINP7404-78-34 20:18:00 0.1[facility] AmuegunGKXPQGHATF9491-70-76 20:18:003.5[facility]ann[facility]MATOLOGY 2018-04-19 20:18:000.4[facility] TcnmblrENXQBWHBTJ7266-50-82 20:18:000.3[facility] GwpmnsmBMNCKEFGPA9710-04-36 20:18:001.9[facility] VvpvjcqSRMQFZUEYF6437-60-53 20:18:002.3[facility] OevyzlwJKDXYADHKW1143-55-10 20:18:007.4[facility] [place] NTCSMSZDQN3519-48-57 20:18:0031.6[facility] OyuvkwrEXQEYCRNPD5231-69-23 20:18:00 58.4[facility] HermannSPECIAL YBIPAPPFR8074-51-25 20:18:0010.3[facility] [place] URINE AND EFJJZ0504-61-81 20:18:00Negative (04/19/18 3:18 PM)[facility] [place] URINE AND IKPUY2094-02-29 20:18:00Negative (04/19/18 3:18 PM)[facility] URINE AND JPNYP4973-61-08 20:18:001[facility]ann[facility] AND HEBZD1214-23-79 20:18:00Negative (04/19/18 3:18 PM)[facility] YWFXD3702-05-80 20:18:005[facility] AND [id number] 20:18:00 Test Item Value Reference Range Interpretation Comments UA pH (test code = UA pH) 5.0 1 5.0-8.0 [facility] [id number] 20:18:00 Test Item Value Reference Range Interpretation Comments UA Spec Grav (test code = UA Spec 1.025 1 Grav) [facility] [id number] 20:18:00Slight *ABN*(04/19/18 3:18 PM) [facility] [id number] 20:18:00Yellow *NA*(04/19/18 3:18 PM) [facility] [id number] 20:18:00Negative *NA*(04/19/18 3:18 PM) [facility] BANK [id number] 20:00:00Product available (04/19/18 3:00 PM)[facility]
--- OUTSIDE RECORDS SUMMARY | 2020-01-16 04:14 | XMS REPORT ---
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, subsequent encounter Problem Arthritis of knee, left M17.12 Acti ve Problem Arthritis of knee, right M17.11 Act kelin Problem Acute pain of right knee M25.561 Act kelin Assessment Pain in joint of right knee M25.561 Active Problem Primary osteoarthritis of left M17.12 Active knee Problem Primary osteoarthritis of right M17.11 Active knee Medications Medication Code Code Instructions Start End Status Dosage System Date Date Omeprazole [facility] 63938542677 20 MG Oral Active (Prior Auth#:[id number]) Furosemide ND 77093638941 20 MG Oral Active (Prior Auth#:[id number]) Metformin HCl [facility] 11219465256 500 MG Orally Active 1 tablet Once a day with a meal Diclofenac [facility] [address]-98 Active not Sodium defined BuPROPion HBr NDC 0 150 Active not defined Venlafaxine HCl ND 95827405266 75 MG Orally Active not ER defined atorvastatin [facility] 55437648353 20mg Active 1 table t by mouth at bedtime Tresiba ND 77197163376 200 UNIT/ML Active as FlexTouch Subcutaneous directed Olanzapine ND 65211106813 10 MG Orally Feb 25, Active 1 ta blet Once a day 2018 Triamcinolone [facility] [address]-08 Active not Acetonide defined Acetic Acid NDC 0 Active not defined Eliquis ND 37181470567 5 MG Orally Active as directed Depakote ND 97030907472 500 MG Orally Active 3 TAB LETS AT NIGHT Lyrica ND 47036961671 150 MG Orally Active not defined Humalog KwikPen [facility] 83121896689 100 UNIT/ML Active as Subcutaneous directed Trulicity ND 0 1.5MGM Active not defined Tramadol HCl [facility] 97292911509 50 MG Orally Aug 29, Active 1 tablet Once a day 2019 as needed Lidocaine-Priloc [facility] [address]-23 Active n ot ayush defined Results No Known Results Summary Purpose eClinicalWorks Submission
[2020-01-16] MEDS ORDERED: TRAMADOL HCL 50 MG TAB ONE (04:36)
[2020-01-16] MEDS ORDERED: CYCLOBENZAPRINE 10 MG TAB ONE (04:36)
--- NOTE | 2020-01-16 06:04 | ER ---
Nurse's Notes [facility] Name: Renetta Ramsay Age: 54 yrs Sex: Female : 1965 Arrival Date: 01/16/2020 Time: 04:08 Bed 8 Private MD: Diagnosis: Other cervical disc degeneration, unspecified cervical region Presentation: 01/15 04:23 Chief complaint: Patient states: Neck pain for about 2 months now; states seen by PCP lp1 but has not gotten x-rays ordered by PCP; Continued pain without relief by OTC medications; denies any trauma. Coronavirus screen: Proceed with normal triage. Ebola Screen: No symptoms or risks identified at this time. Initial Sepsis Screen: Does the patient meet any 2 criteria? No. Patient's initial sepsis screen is negative. Does the patient have a suspected source of infection? No. Patient's initial sepsis screen is negative. Risk Assessment: Do you want to hurt yourself or someone else? Patient reports no desire to harm self or others. Onset of symptoms was January 16, 2020. 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 LMP N/A - Hysterectomy lp1 Historical: - Allergies: 04:30 Amoxicillin; lp1 04:30 Talwin; lp1 04:30 ARIPIPRAZOLE; lp1 04:30 Demerol; lp1 04:30 PENICILLINS; lp1 04:30 pentazocine lactate; lp1 - Home Meds: 04:30 Depakote 500 mg Oral TbEC 3 tabs nightly [Active]; metformin 500 mg Oral Tb24 1 tab 2 lp1 times per day [Active]; atorvastatin 40 mg Oral tab 1 tab nightly [Active]; Eliquis 5 mg Oral tab 1 tab 2 times per day [Active]; furosemide 20 mg Oral tab 1 tab once daily [Active]; olanzapine 5 mg oral tab once daily [Active]; Lyrica 150 mg Oral 3 times per day [Active]; venlafaxine 75 mg oral cp24 once daily [Active]; omeprazole 20 mg Oral cpDR 1 cap once daily [Active]; Trulicity 0.75 mg/0.5 mL subcutaneous pnij 0.5 mL once wkly [Active]; Tresiba FlexTouch U-100 100 unit/mL (3 mL) subcutaneous inpn 90 unit daily [Active]; Humalog 100 unit/mL Sub-Q crtg 15 unit after meals and before bedtime [Active]; - PMHx: 04:30 ADD/ADHD; Bipolar disorder; Chronic pain; Depression; Diabetes - NIDDM; Esophageal lp1 stricture; High Cholesterol; Hypertension; osteomyelitis; Pancreatitis; DVT; - PSHx: 04:30 Neck surgery; Appendectomy; Hysterectomy; colon resection; lp1 - Immunization history:: Adult Immunizations up to date. - Social history:: Smoking status: Patient reports the use of cigarette tobacco products, smokes one pack cigarettes per day. Screenin:30 Abuse screen: Denies threats or abuse. Denies injuries from another. Nutritional lp1 screening: No deficits noted. Tuberculosis screening: No symptoms or risk factors identified. Fall Risk None identified. Assessment: 04:30 General: Appears in no apparent distress. uncomfortable, Behavior is calm, cooperative, rr5 appropriate for age. 04:30 Pain: Complains of pain in neck Pain does not radiate. Pain currently is 10 out of 10 rr5 on a pain scale. Quality of pain is described as aching, Pain began gradually, Is intermittent. Neuro: Level of Consciousness is awake, alert, obeys commands, Oriented to person, place, time, situation. Cardiovascular: Capillary refill < 3 seconds Patient's skin is warm and dry. Respiratory: Airway is patent Respiratory effort is even, unlabored, Respiratory pattern is regular, symmetrical. GI: No signs and/or symptoms were reported involving the gastrointestinal system. : No signs and/or symptoms were reported regarding the genitourinary system. EENT: No signs and/or symptoms were reported regarding the EENT system. Derm: No signs and/or symptoms reported regarding the dermatologic system. Skin is intact, is healthy with good turgor, Skin temperature is warm. Musculoskeletal: Circulation, motion, and sensation intact. Capillary refill < 3 seconds, Reports pain in neck Pain is 10 out of 10 on a pain scale. 05:20 Reassessment: Patient appears in no apparent distress at this time. Patient is alert, rr5 oriented x 3, equal unlabored respirations, skin warm/dry/pink. awaiting for CT result. Patient states symptoms have improved. 06:10 Reassessment: Patient appears in no apparent distress at this time. Patient is alert, rr5 oriented x 3, equal unlabored respirations, skin warm/dry/pink. discharge instruction given and explained without complaints made. Patient states feeling better. Patient states symptoms have improved. Vital Signs: 04:23 BP 155 / 65; Pulse 86; Resp 18; Temp 97.8(O); Pulse Ox 96% on R/A; Weight 122.47 kg lp1 (R); Height 5 ft. 11 in. (180.34 cm); Pain 10/10; 05:20 BP 126 / 74; Pulse 80; Resp 16; Pulse Ox 97% ; rr5 06:10 BP 123 / 85; Pulse 79; Resp 17; Pulse Ox 98% on R/A; rr5 04:23 Body Mass Index 37.66 (122.47 kg, 180.34 cm) lp1 ED Course: 04:08 Patient arrived in ED. cl3 04:17 Ventura Herron MD is Attending Physician. tw4 04:25 Triage completed. lp1 04:25 Arm band placed on. lp1 04:27 Manjeet Correa RN is Primary Nurse. rr5 04:30 Patient has correct armband on for positive identification. lp1 04:48 CT C Spine In Process Unspecified. EDMS 06:11 No provider procedures requiring assistance completed. Patient did not have IV access rr5 during this emergency room visit. Administered Medications: 04:30 Drug: traMADol 50 mg {Note: rass 0.} Route: PO; rr5 05:30 Follow up: Response: No adverse reaction; Marked relief of symptoms rr5 05:30 Follow up: Response: RASS: Alert and Calm (0) rr5 04:30 Drug: Flexeril 10 mg Route: PO; rr5 05:30 Follow up: Response: No adverse reaction; Marked relief of symptoms rr5 Outcome: 06:04 Discharge ordered by . tw4 06:11 Discharged to home ambulatory. rr5 06:11 Condition: stable 06:11 Discharge instructions given to patient, Instructed on discharge instructions, follow up and referral plans. medication usage, Demonstrated understanding of instructions, follow-up care, medications, Prescriptions given X 2. 06:11 Patient left the ED. rr5 Signatures: Dispatcher [employer] EDMS Daria Stuart RN RN lp1 Ventura Herron MD MD tw4 Manjeet Correa RN RN rr5 Yonatan Veliz cl3
--- NOTE | 2020-01-16 06:05 | EDPHYS ---
Physician Documentation [facility] Name: Renetta Ramsay Age: 54 yrs Sex: Female : 1965 Arrival Date: 01/16/2020 Time: 04:08 Bed 8 Private MD: ED Physician Ventura Herron HPI: 01/15 05:49 This 54 yrs old Female presents to ER via Ambulatory with complaints of Stiff tw4 Neck. 05:49 The patient or guardian complains of decreased range of motion, pain. The symptoms are tw4 located at the C1, C2, C3 and C4. Onset: The symptoms/episode began/occurred 2 month(s) ago. Associated signs and symptoms: Pertinent positives: Paresthesias. The pain does not radiate. Severity of symptoms: At their worst the symptoms were moderate, in the emergency department the symptoms are unchanged. The patient has not experienced similar symptoms in the past. 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 LMP N/A - Hysterectomy lp1 Historical: - Allergies: 04:30 Amoxicillin; lp1 04:30 Talwin; lp1 04:30 ARIPIPRAZOLE; lp1 04:30 Demerol; lp1 04:30 PENICILLINS; lp1 04:30 pentazocine lactate; lp1 - Home Meds: 04:30 Depakote 500 mg Oral TbEC 3 tabs nightly [Active]; metformin 500 mg Oral Tb24 1 tab 2 lp1 times per day [Active]; atorvastatin 40 mg Oral tab 1 tab nightly [Active]; Eliquis 5 mg Oral tab 1 tab 2 times per day [Active]; furosemide 20 mg Oral tab 1 tab once daily [Active]; olanzapine 5 mg oral tab once daily [Active]; Lyrica 150 mg Oral 3 times per day [Active]; venlafaxine 75 mg oral cp24 once daily [Active]; omeprazole 20 mg Oral cpDR 1 cap once daily [Active]; Trulicity 0.75 mg/0.5 mL subcutaneous pnij 0.5 mL once wkly [Active]; Tresiba FlexTouch U-100 100 unit/mL (3 mL) subcutaneous inpn 90 unit daily [Active]; Humalog 100 unit/mL Sub-Q crtg 15 unit after meals and before bedtime [Active]; - PMHx: 04:30 ADD/ADHD; Bipolar disorder; Chronic pain; Depression; Diabetes - NIDDM; Esophageal lp1 stricture; High Cholesterol; Hypertension; osteomyelitis; Pancreatitis; DVT; - PSHx: 04:30 Neck surgery; Appendectomy; Hysterectomy; colon resection; lp1 - Immunization history:: Adult Immunizations up to date. - Social history:: Smoking status: Patient reports the use of cigarette tobacco products, smokes one pack cigarettes per day. ROS: 05:49 Constitutional: Negative for fever, chills, and weight loss, Eyes: Negative for injury, tw4 pain, redness, and discharge, Cardiovascular: Negative for chest pain, palpitations, and edema, Respiratory: Negative for shortness of breath, cough, wheezing, and pleuritic chest pain, Abdomen/GI: Negative for abdominal pain, nausea, vomiting, diarrhea, and constipation. 05:49 Back: Negative for injury and pain, MS/Extremity: Negative for injury and deformity, Skin: Negative for injury, rash, and discoloration, Neuro: Negative for headache, weakness, numbness, tingling, and seizure. 05:49 Neck: Positive for pain with movement, pain at rest, stiffness, Negative for injury or acute deformity, mass, swollen nodes, tenderness, bony tenderness. Exam: 05:49 Constitutional: This is a well developed, well nourished patient who is awake, alert, tw4 and in no acute distress. Head/Face: Normocephalic, atraumatic. Chest/axilla: Normal chest wall appearance and motion. Nontender with no deformity. No lesions are appreciated. Cardiovascular: Regular rate and rhythm with a normal S1 and S2. No gallops, murmurs, or rubs. Normal PMI, no JVD. No pulse deficits. Respiratory: Lungs have equal breath sounds bilaterally, clear to auscultation and percussion. No rales, rhonchi or wheezes noted. No increased work of breathing, no retractions or nasal flaring. Abdomen/GI: Soft, non-tender, with normal bowel sounds. No distension or tympany. No guarding or rebound. No evidence of tenderness throughout. Back: No spinal tenderness. No costovertebral tenderness. Full range of motion. MS/ Extremity: Pulses equal, no cyanosis. Neurovascular intact. Full, normal range of motion. Neuro: Awake and alert, GCS 15, oriented to person, place, time, and situation. Cranial nerves II-XII grossly intact. Motor strength 5/5 in all extremities. Sensory grossly intact. Cerebellar exam normal. Normal gait. 05:49 Neck: External neck: tenderness, that is moderate, of the occiput and lower cervical area, C-spine: Vital Signs: 04:23 BP 155 / 65; Pulse 86; Resp 18; Temp 97.8(O); Pulse Ox 96% on R/A; Weight 122.47 kg lp1 (R); Height 5 ft. 11 in. (180.34 cm); Pain 10/10; 05:20 BP 126 / 74; Pulse 80; Resp 16; Pulse Ox 97% ; rr5 06:10 BP 123 / 85; Pulse 79; Resp 17; Pulse Ox 98% on R/A; rr5 04:23 Body Mass Index 37.66 (122.47 kg, 180.34 cm) lp1 MDM: 04:21 Patient medically screened. tw4 01/15 04:21 Order name: CT C Spine tw4 Administered Medications: 04:30 Drug: traMADol 50 mg {Note: rass 0.} Route: PO; rr5 05:30 Follow up: Response: No adverse reaction; Marked relief of symptoms rr5 05:30 Follow up: Response: RASS: Alert and Calm (0) rr5 04:30 Drug: Flexeril 10 mg Route: PO; rr5 05:30 Follow up: Response: No adverse reaction; Marked relief of symptoms rr5 Disposition: 01/16/20 06:04 Discharged to Home. Impression: Other cervical disc degeneration, unspecified cervical region. - Condition is Stable. - Discharge Instructions: Degenerative Disk Disease. - Prescriptions for Tramadol 50 mg Oral Tablet - take 1 tablet by ORAL route every 8 hours as needed; 12 tablet. Cyclobenzaprine 5 mg Oral Tablet - take 1 tablet by ORAL route 3 times per day As needed; 15 tablet. - Medication Reconciliation Form, Thank You Letter, Antibiotic Education, Prescription Opioid Use form. - Follow up: Private Physician; When: Upon discharge from the Emergency Department; Reason: Recheck today's complaints, Continuance of care, Re-evaluation by your physician. - Problem is chronic. - Symptoms have improved. Signatures: Dispatcher [employer] EDMS Daria Stuart RN RN lp1 Ventura Herron MD MD tw4 Correa, Manjeet, RN RN rr5 Corrections: (The following items were deleted from the chart) 06:11 06:04 01/16/2020 06:04 Discharged to Home. Impression: Other cervical disc rr5 degeneration, unspecified cervical region. Condition is Stable. Discharge Instructions: Degenerative Disk Disease. Prescriptions for Tramadol 50 mg Oral Tablet - take 1 tablet by ORAL route every 8 hours as needed; 12 tablet, Cyclobenzaprine 5 mg Oral Tablet - take 1 tablet by ORAL route 3 times per day As needed; 15 tablet. and Forms are Medication Reconciliation Form, Thank You Letter, Antibiotic Education, Prescription Opioid Use. Follow up: Private Physician; When: Upon discharge from the Emergency Department; Reason: Recheck today's complaints, Continuance of care, Re-evaluation by your physician. Problem is chronic. Symptoms have improved. tw4
[2020-01-16 06:18] VITALS: TEMP 97.8
[2020-01-16 06:21] VITALS: BP 123/85; O2SAT 98
--- NOTE | 2020-01-16 18:41 | RAD REPORT ---
EXAM DESCRIPTION: CT - C Spine Wo Con - 01/16/2020 5:21 am CLINICAL HISTORY: 54-year-old female with neck pain x2 months. TECHNIQUE: Multiple high-resolution thin axial CT images were performed through the cervical spine followed by ruth perez and coronal reconstructed images. The CT study is performed according to ALARA (as low as farshad sonably achievable) or ALARA/IMAGE GENTLY, with automatic adjustment of mA and/or kV according to pat ient size. Performed on: 01/16/2020 at 4:24 AM COMPARISON: Plain radiographs of the cervical spine performed on 12/26/2019. FINDINGS: There are remote postsurgical changes of the cervical spine consistent with anterior fusio n of C4-C6. There is no evidence of hardware failure. There is moderate disc space narrowing at C6-C7 with prominent anterior hypertrophic spurring. There is also prominent anterior hypertrophic spurrin g at C3-C4 without significant disc space narrowing. The cervical vertebrae are normal in height. There is straightening of the normal cervical lordosis. Bone mineralization is within normal limits. The atlanto-axial articulation is preserved and the od ontoid process is intact. There is normal alignment of the facet joints on the parasagittal images. There are degenerative harrington ges of the facet joints. There is no evidence of acute fracture or subluxation. There is multilevel mild to moderate canal hema nosis secondary to prominent disc osteophyte complexes most pronounced at C3-C4, C4-C5 and C6-C7. T here is multilevel bilateral neural foraminal stenosis secondary to uncovertebral joint and facet consuelo nt hypertrophy. These findings are most pronounced on the left at C3-C4 and on the right at C5-C6. Th e paravertebral and paraspinal soft tissues are unremarkable. The lung apices are clear. IMPRESSION: 1. No evidence of acute osseous injury involving the cervical spine. 2. Remote anterior fusion of C4-C6 without definite hardware failure. 3. Multilevel degenerative disc disease and degenerative joint disease as described above. Electronically signed by: Lianet Gooden DO 01/16/2020 5:08 AM CDT Due to temporary technical issues with the PACS/Fluency reporting system, reports are being signed by the in house radiologist without review as a courtesy to ensure prompt reporting. The interpreting r adiologist is fully responsible for the content of the report.
== END 2020-01-16 06:11 | disposition home or self-care (01) ==
LOC: ER 04:05
DX: M50.322 Other cervical disc degeneration at C5-C6 level (principal); Z88.1 Allergy status to other antibiotic agents; Z88.0 Allergy status to penicillin; Z88.6 Allergy status to analgesic agent; E11.9 Type 2 diabetes mellitus without complications; I10 Essential (primary) hypertension; E78.00 Pure hypercholesterolemia, unspecified
CPT/HCPCS: 72125; 99283

== ENCOUNTER 2020-02-19 15:27 | Inpatient (IN) | payer OTHER ==
--- OUTSIDE RECORDS SUMMARY | 2020-02-19 15:31 | XMS REPORT | Continuity of Care Document ---
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 Nicotine 11/12/2018 MH dependence, [facility] cigarettes, uncomplicated DYSPHAGIA, Active MH UNSPECIFIED [facility] GASTRO-ESOPHAGEAL Active MH REFLUX DISEASE [facility] WITHOUT DIAPHRAGMATIC Active MH HERNIA WITHOUT [facility] OBSTRUCTION Medications Medication Details Route Status Patient Ordering Order Source Instructions Provider Date Oxycodone 5 mg, 5 mL, Inactive Hydrochloride 1 Route: PO, 2017 [place] MG/ML Oral ONCE, Dosing Solution Weight 113.636, kg, Start date: 04/25/18 12:47:00 CDT, Stop date: 04/25/18 12:47:00 CDT Labetalol 10 mg, Route: Inactive IVP, Q5Min, 2017 [facility] Dosing Weight 113.636, kg, PRN Elevated BP, Start date: 04/25/18 11:19:00 CDT, Duration: 5 doses or times, Stop date: Limited # of times Hydralazine 10 mg, Route: Inactive IVP, Q20Min, 2017 [facility] Dosing Weight 113.636, kg, PRN Elevated BP, Start date: 04/25/18 11:19:00 CDT, Duration: 2 doses or times, Stop date: Limited # of times Oxycodone 5 mg, Route: Inactive PO, Drug form: 2017 [facility] TAB, Q4H, Dosing Weight 113.636, kg, [...] 0.1 mg, Route: Inactive SUB-Q, Q6H, 2017 [facility] Dosing Weight 113.636, kg, PRN Itching, Start date: 04/25/18 11:19:00 CDT, Duration: 30 day, Stop date: 05/25/18 11:18:00 CDT Albuterol 0.83 2.49 mg, Route: Inactive MG/ML Inhalant NEB, Q20Min, 2018 [facility] Dosing Weight 113.636, kg, PRN Wheezing, Priority: STAT, Start date: 04/25/18 11:19:00 CDT, Duration: 30 day, Stop date: 05/25/18 11:18:00 CDT Hydromorphone 0.5 mg, Route: Inactive IVP, Q5Min, 2017 [facility] Dosing Weight 113.636, kg, PRN Pain Score 7-10, Start date: 04/25/18 11:19:00 CDT, Duration: 4 doses or times, Stop date: Limited # of times Meperidine 12.5 mg, Route: Inactive IVP, Q30Min, 2017 [facility] Dosing Weight 113.636, kg, PRN Other -See Comment, For shivering, Start date: 04/25/18 11:19:00 CDT, Duration: 2 doses or times, Stop date: Limited # of times Fentanyl 25 microgram, Inactive Route: IVP, 2017 [facility] Q5Min, Dosing Weight 113.636, kg, PRN Pain Score 4-6, Priority: Routine, Start date: 04/25/18 11:19:00 CDT, Duration: 4 doses or times, Stop date: Limited # of times Flumazenil 0.2 mg, Route: Inactive IVP, PRN, 2017 [facility] Dosing Weight 113.636, kg, PRN Benzodiazepine [...] 6.25 mg, Route: Inactive IVPB, ONCE, 2017 [facility] Dosing Weight 113.636, kg, PRN Nausea & Vomiting, Start date: 04/25/18 11:19:00 CDT Ondansetron 4 mg, Route: Inactive 04/25/ IVP, ONCE, 2017 [facility] Dosing Weight 113.636, kg, PRN Nausea [...] IV, Inactive Injection IV Total Volume: 2017 [facility] (ANES) 1000 mL 1,000, Start date: 04/25/18 8:49:00 CDT, Stop date: 04/25/18 9:49:00 CDT heparin sodium, Route: SUB-Q, Inactive H porcine 2500 Drug form: INJ, 2018 [facility] UNT/ML Injectable ONCALL, Dosing Solution Weight 113.636, kg, Start date: 04/25/18 8:00:00 CDT, Duration: 30 day, Stop date: 05/25/18 7:59:00 CDT Insulin regular 4 unit, Route: Inactive IV, ONCE, 2017 [facility] Dosing Weight 113.636, kg, Start date: [...] Oral Tablet PO, QPM, # 30 2018 [facility] ast [Xarelto] tab, 3 Refill(s) Fenofibrate 145 145 mg = 1 tab, Active MG Oral Tablet PO, Bedtime, 0 2018 [facility] Refill(s) OLANZapine 10 mg 10 mg = 1 tab, Active oral tablet PO, QPM, 0 2018 Refill(s) 24 HR Divalproex 3 tabs, PO, Active Sodium 500 MG Bedtime, 0 2018 [facility] st Extended Release Refill(s) Tablet [Depakote] pantoprazole 40 40 mg = 1 tab, Active 04/19/ H mg oral enteric PO, BID, 0 2018 [facility] coated tablet Refill(s) pregabalin 150 MG 150 mg = 1 cap, Active Oral Capsule PO, QAM, 0 2018 [facility] t [Lyrica] Refill(s) venlafaxine 150 150 mg = 1 tab, Active mg oral tablet, PO, QAM, # 30 2018 [facility] extended release tab, 0 Refill(s) olanzapine 5 MG 5 mg = 1 tab, Active Oral Tablet PO, QAM, 0 2018 Refill(s) pioglitazone 30 30 mg = 1 tab, Active 04/19/ M H mg oral tablet PO, QAM, 0 2018 [facility] Refill(s) Alprazolam 1 MG 1 [...] BANK ABO/Rh B POS 04/19 RESULTS /2017 [facility] BLOOD BANK Antibody Negative 04/19 RESULTS Scrn (04/19/18 3:18 PM) [facility] ast CHEM PANEL eGFR 56 04/19 Result Comment: The [facility] eGFR is calculated using the CKD-EPI [...] PANEL AST 21 0 - 37 04/19 [facility] CHEM PANEL Albumin Lvl 3.2 3.5 - 5.0 04/19 [facility] CHEM PANEL ALT 25 0 - 65 04/19 [facility] CHEM PANEL Alk Phos 65 39 - 136 04/19 [facility] CHEM PANEL Bili Total 0.2 0.2 - 1.3 04/19 [facility] CHEM PANEL Calcium Lvl 9.0 8.5 - 10.5 04/19 [facility] CHEM PANEL Total 6.7 6.4 - 8.4 04/19 Protein [facility] CHEM PANEL Glucose Lvl 288 70 - 99 04/19 [facility] CHEM PANEL BUN 18 7 - 22 04/19 [facility] CHEM PANEL Creatinine 1.13 0.50 - 04/19 MH Lvl 1.40 /2017 [facility] CHEM PANEL Sodium Lvl 143 135 - 145 04/19 [facility] CHEM PANEL Chloride Lvl 105 95 - 109 04/19 [facility] CHEM PANEL CO2 27 24 - 32 09 /2017 [facility] CHEM PANEL Potassium 4.5 3.5 - 5.1 04/19 Lvl /2017 [facility] CHEM PANEL AGAP 15.5 10.0 - 04/19 20.0 /2017 [facility] CHEM PANEL B/C Ratio 16 6 - 25 04/19 [facility] CHEM PANEL Globulin 3.5 2.7 - 4.2 04/19 [facility] CHEM PANEL A/G Ratio 0.9 0.7 - 1.6 04/19 /2017 [facility] HEMATOLOGY PTT 25.8 22.9 - 04/19 MH 35.8 /2017 [facility] HEMATOLOGY PT 14.0 12.0 - 04/19 MH 14.7 /2017 [facility] HEMATOLOGY INR 1.08 0.85 - 04/19 MH 1.17 /2017 [facility] HEMATOLOGY Platelet 162 133 - 450 04/19 [facility] HEMATOLOGY MPV 8.7 7.4 - 10.4 04/19 /2017 [facility] HEMATOLOGY MCH 29.7 27.0 - 04/19 MH 31.0 /2017 [facility] HEMATOLOGY RDW 15.0 11.5 - 04/19 14.5 /2017 [facility] HEMATOLOGY MCHC 33.1 32.0 - 04/19 MH 36.0 /2017 [facility] HEMATOLOGY MCV 89.8 80.0 - 04/19 98.0 /2017 [facility] HEMATOLOGY Hct 39.1 36.0 - 04/19 48.0 /2017 [facility] HEMATOLOGY WBC 6.0 3.7 - 10.4 04/19 /2017 [facility] HEMATOLOGY Hgb 12.9 12.0 - 04/19 MH 16.0 /2017 [facility] HEMATOLOGY RBC 4.35 4.20 - 04/19 MH 5.40 /2017 [facility] HEMATOLOGY Eosinophils 0.1 0.0 - 0.5 04/19 MH # /2018 [facility] HEMATOLOGY Neutrophils 3.5 1.5 - 8.1 04/19 MH # /2017 [facility] HEMATOLOGY Monocytes # 0.4 0.0 - 0.8 04/19 [facility] HEMATOLOGY Basophils 0.3 0.0 - 1.0 04/19 [facility] HEMATOLOGY Lymphocytes 1.9 1.0 - 5.5 04/19 MH # /2017 [facility] HEMATOLOGY Eosinophils 2.3 0.0 - 4.0 04/19 /2017 [facility] HEMATOLOGY Monocytes 7.4 2.0 - 12.0 04/19 [facility] HEMATOLOGY Lymphocytes 31.6 20.0 - 04/19 MH 40.0 [facility] HEMATOLOGY Segs 58.4 45.0 - 04/19 75.0 /2017 [facility] SPECIAL Hgb A1C 10.3 <=5.6 % 04/19 CHEMISTRY /2017 [facility] URINE AND UA <=1.0 0.1 - 1.0 04/19 STOOL Urobilinogen mg/dL [facility] URINE AND UA Nitrite Negative Negative 04/19 STOOL (04/19/18 3:18 PM) /2017 [facility] URINE AND UA Leuk Est Negative Negative 04/19 STOOL (04/19/18 3:18 PM) [facility] URINE [facility] Sq Epi Few /LPF Few /LPF 04/19 STOOL [facility] URINE AND UA WBC 1 0 - 5 04/19 STOOL [facility] URINE AND UA Blood Negative Negative 04/19 STOOL (04/19/18 3:18 PM) /2017 [facility] URINE AND UA RBC 5 0 - 2 04/19 STOOL [facility] URINE AND UA pH 5.0 5.0 - 8.0 04/19 STOOL /2017 [facility] URINE AND UA Spec Grav 1.025 <=1.030 04/19 STOOL [facility] URINE AND UA Protein Negative Negative 04/19 STOOL mg/dL mg/dL [facility] URINE AND UA Ketones Trace Negative 04/19 STOOL mg/dL mg/dL [facility] URINE AND UA Glucose 500 mg/dL Negative 04/19 STOOL mg/dL [facility] URINE AND UA Turbidity Slight Clear 04/19 STOOL *ABN* /2017 [facility] (04/19/18 3:18 PM) URINE AND UA Color Yellow Yellow 04/19 STOOL *NA* /2017 [facility] (04/19/18 3:18 PM) URINE AND UA Bili Negative Negative 04/19 STOOL *NA* /2017 [facility] (04/19/18 3:18 PM) BLOOD BANK RBC product Product available 04/19 RESULTS (04/19/18 3:00 PM) [facility] Pathology Reports No Data Provided for This Section Diagnostic Reports Report Value Date Source Barium Swallow w Barium Swallow w Esophagus Function DX 05/30/20 [facility] Esophagus Function DX COMPARISON: None CLINICAL [...] from the stomach into proximal small bowel. [id number] Chest 2 views DX Patient Name: MANJINDER DODSON 04/19/2018 [facility] : 1965; Age: 52 years Female MR: [id number] Study: Chest 2 views DX Order Time: [...] Recommend CT chest for further characterization. SL: [id number] Barium Swallow w Fluoro Time and Dose: 6.1min/369.66mGy air kerm a 04/17/2018 [facility] Esophagus Function DX Barium Swallow w [...] visualized at the GE junc tion. SL: [id number] Consultation Notes No Data Provided for This [...] 04/25/[address] Respitory Rate 16 04/25/2018 [facility] Respitory Rate 16 04/25/2018 [facility] Respitory Rate 11 04/25/2018 [facility] Heart Rate 73 04/25/2018 [facility] Respitory Rate 16 04/23/2018 [facility] Systolic (mm Hg) 139 04/23/2018 [facility] Diastolic (mm Hg) 86 04/23/[address] Respitory Rate 17 04/23/2018 [facility] Systolic (mm Hg) 128 04/23/2018 [facility] Diastolic (mm Hg) 76 04/23/[address] Respitory Rate 18 04/23/2018 [facility] Systolic (mm Hg) 117 04/23/2018 [facility] Diastolic (mm Hg) 68 04/23/[address] [facility] [address] Weight 113.636 04/23/2018 [facility] BMI Calculated 34.94 04/23/2018 [facility] Height 180.34 cm 04/23/2018 [facility] Temperature Oral (F) 97.8 F 04/19/2018 [facility] Heart Rate 86 04/19/2018 [facility] BMI Calculated 34.66 04/19/2018 [facility] Weight 112.727 04/19/2018 [facility] Height 180.34 cm 04/19/2018 [facility] Encounters Location Location Encounter Encounter Reason Attending ADM [place] Stat Source Details Type Number For Provider Date Date Visit [facility] Outpatient [id number] [facility] 04/17 04/18 [facility] Bed[facility] [id number] [facility] 04/23 04/23 [facility]patient [facility] Inpatient [id number] [facility] 04/25 04/25 [facility] Outpatient [id number] [facility] 05/30 05/31 [facility] Procedures Procedure Code Date Perfomer Comments Source Amputation [id number] [facility] Colonoscopy [id number] [facility] Esophagogastroduodenoscopy [id number] [facility] Hysterectomy [id number] [facility] Resection [id number] [facility] Assessment and Plan Assessment and Plan Date Source Extracted from:Title: Clinical Document 04/25/2018 [facility] Author: Meseret Abbott MD Date: 04/25/18 PATIENT NAME: MARILEE DODSON DATE OF OPERATION/PROCEDURE: 04/25/2018 PREOPERATIVE DIAGNOSIS: 1. Achalasia 2. Regurgitation and dyspahgia POSTOPERATIVE DIAGNOSIS: 1. Achalasia 2. Regurgitation and dyspahgia SURGEON: Meseret Abbott M.D. SUPPORT COORDINATOR: [facility] PROCEDURES PERFORMED: 1. Laparoscopic [...] History Date Source Social History TypeResponse 04/25/2018 [facility] Smoking Status Current every day smoker; [...]
--- OUTSIDE RECORDS SUMMARY | 2020-02-19 15:32 | XMS REPORT ---
[...] Status Dosage System Date Date Tramadol HCl [facility] [id number] 50 MG Orally 1 January 14January Active as directed PO Q 6 HRS PRN 2019 10, PAIN 2020 Results No Known Results Summary Purpose eClinicalWorks Submission
--- OUTSIDE RECORDS SUMMARY | 2020-02-19 15:32 | XMS REPORT | Continuity of Care Document ---
:1965 Author Organization [facility] t Address [address] [place] [address] Care Team Providers Name Role Phone BANKI Attending Clinician Unavailable Banki Attending Clinician Banki Admitting Clinician Problems Condition Condition Condition Status Onset Resolution Last Treating Co mments Source Name Details Category Date Date Treatment Clinician Date DX: Diagnosis Active 2017-072018-07-11 Mem oria R13.10=DYS 1-07 12:49:00 l PHAGIA, DX: 00:00: [place] UNSPECIFIE R13.10=DYS 00 D, R10.1 PHAGIA, UNSPECIFIE D, R10.1 Active 05/29/2018 [facility] UNK Diagnosis Active 2018-04-23 Mem oria 04-17 08:18:00 l UNK 00:00: [place] 00 Active 04/17/2018 [facility] GERD WO Diagnosis Active 2018-04-25 Me moria ESOPHAGITI 04-17 06:46:00 l S GERD WO 00:00: [place] ESOPHAGITI 00 S Active 04/17/2018 [facility] K21.9, Diagnosis Active 2018-04-17 Mem oria R13.10, - 08:54:00 l K44.9 K21.9, 00:00: [place] R13.10, 00 K44.9 Active 04/04/2018 [facility] History of History of Problem Resolve Univers [...] ity of surgery surgery [place] [facility] Primary Primary Problem Active [facility] osteoarthr [...] knee knee [facility] Dysphagia, Problem 2018-12-18 M emoria unspecifie 11:14:16 l d [place] Dysphagia, unspecifie d 12/18/2018 [facility] Gastro-eso Problem 2018-12-18 M emoria phageal 11:14:16 l reflux Mario disease Gastro-eso without phageal esophagiti reflux s disease without esophagiti s 12/18/2018 [facility] Diaphragma Problem 2018-11-04 M emoria tic hernia 12:20:16 l without [place] 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 11/04/2018 [facility] Gastritis, Problem 2018-11-10 M emoria unspecifie 12:35:52 l d, without Jb n bleeding Gastritis, unspecifie d, without bleeding 11/10/2018 [facility] Chronic Problem 2018-11-10 Tae ivan obstructiv 12:35:52 l e Chronic [place] pulmonary obstructiv disease, e unspecifie pulmonary d disease, unspecifie d 11/10/2018 [facility] Sleep Problem 2018-11-10 Memor ia apnea, 12:35:52 l unspecifie Sleep Lynsey nn d apnea, unspecifie d 11/10/2018 [facility] Type 2 Problem 2018-11-12 Memor ia diabetes 12:44:11 l mellitus Type 2 Jb n without diabetes complicati mellitus ons without complicati ons 11/12/2018 [facility] MCFP Problem 2018-11-10 Me moria (current) 12:35:52 l use of Long [place] oral term hypoglycem (current) ic drugs use of oral hypoglycem ic drugs 11/10/2018 [facility] Other long Problem 2018-11-10 M emoria term 12:35:52 l (current) 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 11/10/2018 [facility] Nicotine Problem 2018-11-12 Mem oria dependence 12:44:11 l , Nicotine Jb n cigarettes dependence , , uncomplica cigarettes noris , uncomplica noris 11/12/2018 [facility] Deep Problem Resolve 2018-12-18 Tae ivan venous d 11:14:16 l thrombosis Deep Jb n (disorder) venous thrombosis (disorder) Resolved Problem 12/18/2018 [facility] Pulmonary Problem Resolve 2018-12-18 M emoria thromboemb d 11:14:16 l olism [place] (disorder) Pulmonary thromboemb olism (disorder) Resolved Problem 12/18/2018 [facility] Anxiety Problem Active 2018-12-18 Tae ivan (finding) 11:14:16 l Anxiety Mario (finding) Active Problem 12/18/2018 [facility] Chronic Problem Active 2018-12-18 Tae ivan obstructiv 11:14:16 l e lung Chronic Mario disease obstructiv (disorder) e lung disease (disorder) Active Problem 12/18/2018 [facility] Diabetes Problem Active 2018-12-18 Mem oria mellitus 11:14:16 l (disorder) Diabetes He rmann mellitus (disorder) Active Problem 12/18/2018 [facility] Dyspnea on Problem Active 2018-12-18 M emoria exertion 11:14:16 l (finding) Dyspnea Herm ayana on exertion (finding) Active Problem 12/18/2018 [facility] Gastroesop Problem Active 2018-12-18 M emoria hageal 11:14:16 l reflux [place] disease Gastroesop (disorder) hageal reflux disease (disorder) Active Problem 12/18/2018 [facility] Pulmonary Problem Active 2018-12-18 Me moria emphysema 11:14:16 l (disorder) Jb n Pulmonary emphysema (disorder) Active Problem 12/18/2018 [facility] Sleep Problem Active 2018-12-18 Memor ia apnea 11:14:16 l (finding) Sleep Jb n apnea (finding) Active Problem 12/18/2018 [facility] DYSPHAGIA, Diagnosis Active 2018-07-11 Memoria UNSPECIFIE 12:49:00 l D [place] DYSPHAGIA, UNSPECIFIE D Active [facility] GASTRO-ESO Diagnosis Active 2018-04-25 Memoria PHAGEAL 06:46:00 l REFLUX [place] DISEASE GASTRO-ESO WITHOUT PHAGEAL REFLUX DISEASE WITHOUT Active [facility] DIAPHRAGMA Diagnosis Active 2018-04-17 Memoria TIC HERNIA 08:54:00 l WITHOUT Mario OBSTRUCTIO DIAPHRAGMA N TIC HERNIA WITHOUT OBSTRUCTIO N Active [facility] Epigastric Problem 2017-072018-12-18 2018-12-18 Memoria pain 2-28 11:14:16 11:14:16 l 04:44: [place] Epigastric 43 pain 07/19/2018 12/18/2018 [facility] Achalasia Problem 2017-072018-11-12 2018-11-12 Memoria of cardia 0-10 12:44:11 12:44:11 l 03:32: [place] Achalasia 00 of cardia 05/01/2018 11/12/2018 [facility] Allergies, Adverse Reactions, Alerts Allergy Allergy Status [...] penicill Active Memori a ins ins l [place] Alfaro Active Memoria l [place] Family History Family Member Diagnosis Comments Start Date Stop Date Source Mother Family history of [facility] [place] malignant neoplasm Physic ians of breast Social History Smoking Status Start Date Stop Date Source Smoker. current status [facility] [place] unknown Physicians Social History 2018-04-25 13:52:33 [facility] Her myers Medications Ordered Filled Start Stop Current Ordering Indication Dosage Frequency Signature Comments Components Source Medication Medication Date Date Medication? Clinician (SIG) Name Name Tramadol Tramadol 2019-2019- No Navneet [address] [facility] HCl HCl 08-29 Call [facility] needed [facility] Oxycodone 2017-07 No 5 mg, 5 Memor ia Hydrochlori 0-04 mL, Route: l de 1 MG/ML 17:47: PO, ONCE, He rmann Oral 00 Dosing Solution Weight 113.636, kg, Start date: 04/25/18 12:47:00 CDT, Stop date: 04/25/18 12:47:00 CDT Labetalol 2017-07 No 10 mg, Memori a 0-04 Route: l 16:19: IVP, [place] 00 Q5Min, Dosing Weight 113.636, kg, PRN Elevated BP, Start date: 04/25/18 11:19:00 CDT, Duration: 5 doses or times, Stop date: Limited # of times Hydralazine 2017-07 No 10 mg, Tae ivan 0-04 Route: l 16:19: IVP, [place] 00 Q20Min, Dosing Weight 113.636, kg, PRN Elevated BP, Start date: 04/25/18 11:19:00 CDT, Duration: 2 doses or times, Stop date: Limited # of times Oxycodone 2017-07 No 5 mg, Memoria 0-04 Route: PO, l 16:19: Drug form: [place] 00 TAB, Q4H, Dosing Weight 113.636, kg, PRN Pain Score 4-6, Start date: 04/25/18 11:19:00 CDT, Duration: 30 day, Stop date: 05/25/18 11:18:00 CDT Diphenhydra 2017-07 No 12.5 mg, Me moria mine 0-04 Route: l 16:19: IVP, Drug [place] 00 form: INJ, Q6H, Dosing Weight 113.636, kg, PRN Itching, Start date: 04/25/18 11:19:00 CDT, Duration: 30 day, Stop date: 05/25/18 11:18:00 CDT Naloxone 2017- No 0.1 mg, Memori a 0-04 Route: l 16:19: SUB-Q, [place] 00 Q6H, Dosing Weight 113.636, kg, PRN [...] oria ne 0-04 Route: l 16:19: IVP, [place] 00 Q5Min, Dosing Weight 113.636, kg, PRN Pain Score 7-10, Start date: 04/25/18 11:19:00 CDT, Duration: 4 doses or times, Stop date: Limited # of times Meperidine 2017-07 No 12.5 mg, Mem oria 0-04 Route: l 16:19: IVP, [place] 00 Q30Min, Dosing Weight 113.636, kg, PRN Other -See Comment, For shivering, Start date: 04/25/18 11:19:00 CDT, Duration: 2 doses or times, Stop date: Limited # of times Fentanyl 2017-07 No 25 Memoria 0-04 microgram, l 16:19: Route: [place] 00 IVP, Q5Min, Dosing Weight 113.636, kg, PRN Pain Score 4-6, Priority: Routine, Start date: 04/25/18 11:19:00 CDT, Duration: 4 doses or times, Stop date: Limited # of times Flumazenil 2017-07 No 0.2 mg, Tae ivan 0-04 Route: l 16:19: IVP, PRN, [place] 00 Dosing Weight 113.636, kg, PRN Benzodiaze [...] moria e 0-04 Route: l 16:19: IVPB, [place] 00 ONCE, Dosing Weight 113.636, kg, PRN [...] INJ, ONCE, Stop date: 04/25/18 9:44:00 CDT rocuronium 2017-07 No Route: IV, M emoria (ANES) 0-04 Drug form: l 14:44: INJ, ONCE, Stop date: 04/25/18 9:44:00 CDT propofol 2017-07 No Route: IV, Mem oria (ANES) 0-04 Drug form: l 14:44: INJ, ONCE, Stop date: 04/25/18 9:44:00 CDT ondansetron 2017-07 No Route: IV, Memoria (ANES) 0-04 Drug form: l 14:44: INJ, ONCE, [place] 00 Stop date: 04/25/18 9:44:00 CDT acetaminoph 2017-07 No Route: IV, Memoria en (ANES) 0-04 Drug form: l 14:44: INJ, ONCE, [place] 00 Stop date: 04/25/18 9:44:00 CDT famotidine [...] (ANES) 0-04 Drug form: l 14:34: SOLN, [place] 00 ONCE, Stop date: 04/25/18 9:34:00 CDT Sodium 2017-07 No Route: IV, Memor ia Chloride 0-04 Total l 0.9% IV 13:58: Volume: Mario (ANES) 1000 00 1,000, mL Start date: 04/25/18 8:58:00 CDT, Stop date: 04/25/18 9:58:00 CDT Calcium 2017-07 No 1,000 mL, Memor ia Chloride 0-04 Rate: 25 l 0.0014 13:50: ml/hr, [place] MEQ/ML / 00 Infuse Potassium over: 40 Chloride hr, Route: 0.004 IV, Dosing MEQ/ML / Weight Sodium 113.636 Chloride kg, Total 0.103 Volume: MEQ/ML / 1,000, Sodium Start Lactate date: 0.028 04/25/18 MEQ/ML 8:50:00 Injectable CDT, Solution Duration: 30 day, Stop date: 05/25/18 8:49:00 CDT, 2.41, m2 Lactated 2018- No Route: IV, Mem oria Ringers 0-04 [...] = 1 Me moria 10 mg oral 9-28 tab, PO, l tablet 19:58: QPM, 0 [place] 00 Refill(s) 24 HR Yes 3 tabs, Memoria Divalproex 04-19 PO, l Sodium 500 19:58: Bedtime, 0 H ermann MG Extended 00 Refill(s) Release Tablet [Depakote] pantoprazol Yes 40 mg = 1 M emoria e 40 mg - tab, PO, l oral 19:57: BID, 0 [place] enteric 00 Refill(s) coated tablet pregabalin Yes 150 mg = 1 M emoria 150 MG Oral 04-19 cap, PO, l Capsule 19:57: QAM, 0 [place] [Lyrica] 00 Refill(s) venlafaxine Yes 150 mg = 1 Memoria 150 mg oral 04-19 tab, PO, l tablet, 19:57: QAM, # 30 Lynsey nn extended 00 tab, 0 release Refill(s) olanzapine Yes 5 mg = 1 Mem oria 5 MG Oral -28 tab, PO, l Tablet 19:56: QAM, 0 [place] 00 Refill(s) pioglitazon Yes 30 mg = 1 M emoria e 30 mg -28 tab, PO, l oral tablet 19:56: QAM, 0 Herm ayana 00 Refill(s) Alprazolam Yes 1 mg = 1 Mem oria 1 MG Oral 28 tab, PO, l Tablet 19:55: QAM, 0 [place] [Xanax] 00 Refill(s) metFORMIN Yes 1,000 mg = Me moria 500 mg oral 04-19 2 tab, PO, l tablet, 19:55: BID, 0 [place] extended 00 Refill(s) release Olanzapine Olanzapine Yes Navneet [address] [facility] 02-25 Call [facility]: [facility]oria [facility] l [facility] Clinics MetFORMIN MetFORMIN Yes R.N. Unive rs HCl - 500 HCl - 500 ity o f MG Oral MG Oral [place] Tablet Tablet Physici ans ALPRAZolam ALPRAZolam Yes R.N. Uni vers 1 MG Oral 1 MG Oral ity o f Tablet Tablet [place] [facility] OLANZapine OLANZapine Yes R.N. Uni vers 5 MG Oral 5 MG Oral ity o f Tablet Tablet [place] [facility] Venlafaxine Venlafaxine Yes R.N. U nivers HCl ER 150 HCl ER 150 ity of MG Oral MG Oral [place] Tablet Tablet Physici Extended Extended ans Release 24 Release 24 Hour Hour Lyrica 150 Lyrica 150 Yes R.N. Uni vers MG Oral MG Oral ity of Capsule Capsule [place] [facility]ici ans Pantoprazol Pantoprazol Yes R.N. U nivers e Sodium 40 e Sodium 40 i ty of MG Oral MG Oral [place] Tablet Tablet Physici Delayed Delayed ans Release Release Depakote Depakote Yes R.N. Univers 500 MG Oral 500 MG Oral i ty of Tablet Tablet [place] Delayed Delayed Physici Release Release ans OLANZapine OLANZapine Yes R.N. Uni vers 10 MG Oral 10 MG Oral ity of Tablet Tablet [place] [facility]ici ans Fenofibrate Fenofibrate Yes R.N. U nivers 145 MG Oral 145 MG Oral i ty of Tablet Tablet [place] [facility] ans Xarelto 20 Xarelto 20 Yes R.N. Uni vers MG Oral MG Oral ity of Tablet Tablet [place] [facility] HumaLOG HumaLOG Yes R.N. Univers SOLN SOLN [facility] [place] [facility] ans Tresiba Tresiba Yes R.N. Univers FlexTouch FlexTouch ity o f 100 UNIT/ML 100 UNIT/ML [place] Subcutaneou Subcutaneou P hysici s Solution s Solution ans Pen-injecto Pen-injecto r r Acetic Acid Acetic Acid Yes Navneet not [facility] Call defined [facility] Venlafaxine Venlafaxine Yes Navneet not [facility] HCl ER HCl ER Call defined [facility] Depakote Depakote Yes Navneet [address] [facility] Omeprazole Omeprazole Yes Navneet (Prior [facility] Call Auth#:[id number] [facility] - [id number]) [facility] atorvastati atorvastati Yes Navneet [address] [facility] n n Call by mouth [facility] - at bedtime [facility] Triamcinolo Triamcinolo Yes Navneet not [facility] ne ne Call defined [facility] - Acetonide Acetonide [facility]ics BuPROPion BuPROPion Yes Navneet not [facility] Call defined [facility] Trulicity Trulicity Yes Navneet not [facility] Call defined [facility] Lyrica Lyrica Yes Navneet not [facility] Call defined [facility] Metformin Metformin Yes Navneet [address] [facility] HCl HCl Call with a [facility] - meal [facility] Lidocaine-P Lidocaine-P Yes Navneet not [facility] rilocaine rilocaine Call defined Jeannette kes - [facility] Furosemide Furosemide Yes Navneet (Prior [facility] Call Auth#:[id number] [facility] - [id number]) [facility] Humalog Humalog Yes Navneet as [facility] KwikPen KwikPen Call directed [facility] Eliquis Eliquis Yes Navneet as [facility] Call directed [facility] Diclofenac Diclofenac Yes Navneet not [facility] Sodium Sodium Call defined [facility] Tresiba Tresiba Yes Anvneet as [facility] FlexTouch FlexTouch Call directed [facility] - [facility] Vital Signs Vital Name Observation Time Observation Value Comments Source BP Systolic 2018-05-30 138 mm[Hg] Location: [facility] 14:10:00 Position: [place] [facility] Sitting BP Diastolic 2018-05-30 91 mm[Hg] Location: [facility] 14:10:00 Position: [place] [facility] s Sitting Height 2018-05-30 71 [in_us] University 14:10:00 [place] [facility] s Weight 2018-05-30 249.375 [lb_av] University o f 14:10:00 [place] [facility] Body Mass Index 2018-05-30 34.78 kg/m2 University o f Calculated 14:10:00 [place] [facility] Temperature 2018-05-30 98 [degF] Method: Oral [facility] 14:10:00 [place] [facility] Heart Rate 2018-05-30 80 /min Quality: Normal University o f 14:10:00 [place] [facility] s Respiration Rate 2018-05-30 18 /min Quality: Normal Universi ty of 14:10:00 [place] [facility] s O2 SAT 2018-05-30 97 % Source: [facility] 14:10:00 [place] [facility] BP Systolic 2018-05-01 126 mm[Hg] Location: [facility] 11:46:00 Position: [place] Physician s Sitting BP Diastolic 2018-05-01 75 mm[Hg] Location: [facility] 11:46:00 Position: [place] [facility] s Sitting Height 2018-05-01 71 [in_us] University 11:46:00 [place] [facility] s Weight 2018-05-01 254.125 [lb_av] University o f 11:46:00 [place] [facility] Body Mass Index 2018-05-01 35.44 kg/m2 University o f Calculated 11:46:00 [place] [facility] s Temperature 2018-05-01 98.4 [degF] Method: Oral University of 11:46:00 [place] [facility] Heart Rate 2018-05-01 76 /min Quality: Normal University o f 11:46:00 [place] [facility] Respiration Rate 2018-05-01 19 /min Quality: Normal Universi ty of 11:46:00 [place] [facility] s O2 SAT 2018-05-01 95 % Source: [facility] 11:46:00 [place] [facility] Systolic (mm Hg) 2018-04-25 [facility] 18:30:00 Diastolic (mm Hg) 2018-04-25 [facility] ermann 18:30:00 Systolic (mm Hg) 2018-04-25 [facility] 18:00:00 Diastolic (mm Hg) 2018-04-25 [facility] H ermann 18:00:00 Systolic (mm Hg) 2018-04-25 [facility] 17:45:00 Diastolic (mm Hg) 2018-04-25 [facility] ermann 17:45:00 Respitory Rate 2018-04-25 [facility] Herm ayana 17:30:00 Respitory Rate 2018-04-25 [facility] Herm ayana 17:00:00 Respitory Rate 2018-04-25 [facility] ayana 16:45:00 Heart Rate 2018-04-25 [facility] Jb n 12:38:00 Respitory Rate 2018-04-23 [facility] ayana 13:45:00 Systolic (mm Hg) 2018-04-23 [facility] 13:45:00 Diastolic (mm Hg) 2018-04-23 [facility] H ermann 13:45:00 Respitory Rate 2018-04-23 [facility] ayana 13:30:00 Systolic (mm Hg) 2018-04-23 [facility] Tonny rmann 13:30:00 Diastolic (mm Hg) 2018-04-23 [facility] Kaushik ermann 13:30:00 Respitory Rate 2018-04-23 [facility] ayana 13:15:00 Systolic (mm Hg) 2018-04-23 [facility] Tonny rmann 13:15:00 Diastolic (mm Hg) 2018-04-23 Lee Faulkner ermann 13:15:00 Weight 2018-04-23 [facility] Jb n 12:17:00 BMI Calculated 2018-04-23 [facility] ayana 12:17:00 Height 2018-04-23 180.34 cm Lee Marshallan n 12:17:00 Temperature Oral 2018-04-19 97.8 F Lee Lancaster rmann (F) 19:59:00 Heart Rate 2018-04-19 Lee Marshallan n 19:59:00 BMI Calculated 2018-04-19 [facility]ana 19:52:00 Weight 2018-04-19 Lee Marshallan n 19:52:00 Height 2018-04-19 180.34 cm Lee Marshallan n 19:52:00 BP Systolic 2018-04-17 126 mm[Hg] Location: [facility] 09:58:00 Position: [place] [facility]ician [facility] Sitting BP Diastolic 2018-04-17 81 mm[Hg] Location: [facility] 09:58:00 Position: [place] [facility]ician s Sitting Height 2018-04-17 71 [in_us] University of 09:58:00 [place] [facility] Weight 2018-04-17 248.375 [lb_av] University o f 09:58:00 [place] [facility] Body Mass Index 2018-04-17 34.64 kg/m2 University o f Calculated 09:58:00 [place] [facility] Temperature 2018-04-17 98.3 [degF] Method: Oral University of 09:58:00 [place] [facility] Heart Rate 2018-04-17 83 /min Quality: Normal University o f 09:58:00 [place] [facility] Respiration Rate 2018-04-17 18 /min Quality: Normal Universi ty of 09:58:00 [place] [facility] O2 SAT 2018-04-17 95 % Source: [facility] 09:58:00 [place] [facility] Procedures Procedure Date / Time Performing Source Performed Clinician History [facility] History of Neck surgery [facility] Physicians History of Hysterectomy [facility] [place] [facility] History of Colon Surgery [facility] [place] Physicians History of Back Surgery [facility] [place] Physicians History of Heller Myotomy [place] dior of Laparoscopic Approach [place] [facility] Amputation [facility] Colonoscopy [facility] Esophagogastroduodenoscopy Memor ial Mario Resection [facility] Encounters Start End Encounter Admission Attending Care Care Encounter Source Date/Time Date/Time Type Type Clinicians Facility Department ID 2020-02-09 2020-02-09 [facility] [id number] [facility] 11:53:00 11:53:00 [facility] 2020-01-27 2020-01-27 [facility] [id number] [facility] 13:00:00 13:00:00 [facility] 2020-01-21 2020-01-21 [facility]patient [facility] [id number] [facility] 09:30:00 09:30:00 [facility] 2020-01-14 2020-01-14 [facility] [id number] [facility] 09:18:00 09:18:00 [facility] 2020-01-08 2020-01-08 [facility] [id number] [facility] 14:15:00 14:15:00 [facility] 2019-12-04 2019-12-04 [facility] [id number] [facility] 11:00:00 11:00:00 [facility] 2019-11-20 2019-11-20 [facility] [id number] [facility] 16:22:00 16:22:00 [facility] 2019-10-06 2019-10-06 [facility] [id number] [facility] 11:00:00 11:00:00 [facility] 2019-09-29 2019-09-29 [facility] [id number] [facility] 13:10:00 13:10:00 [facility] 2019-09-11 2019-09-11 [facility] [id number] [facility] 13:30:00 13:30:00 [facility] 2019-09-01 2019-09-01 [facility] [id number] [facility] 09:16:00 09:16:00 [facility] 2019-08-29 2019-08-29 [facility] [id number] [facility] 08:18:00 08:18:00 [facility] 2019-08-22 2019-08-22 [facility] [id number] [facility] 09:00:00 09:00:00 [facility] 2019-08-20 2019-08-20 [facility] [id number] 15:48:00 15:48:00 [facility] 2019-08-18 2019-08-18 [facility] [id number] [facility] 12:00:00 12:00:00 [facility] 2019-08-06 2019-08-06 [facility] [id number] 13:30:00 13:30:00 [facility] 2019-08-04 2019-08-04 [facility] [id number] 11:00:00 11:00:00 [facility] 2019-07-29 2019-07-29 [facility] [id number] 16:13:00 16:13:00 [facility] 2019-07-21 2019-07-21 [facility] [id number] 11:09:00 11:09:00 [facility] 2019-07-10 2019-07-10 [facility] [id number] 13:30:00 13:30:00 [facility] 2019-06-12 2019-06-12 [facility] [id number] 11:37:00 11:37:00 [facility] 2019-06-09 2019-06-09 [facility] [id number] 14:59:00 14:59:00 [facility] 2019-06-09 2019-06-09 [facility] [id number] 08:00:00 08:00:00 [facility] 2019-05-28 2019-05-28 [facility] [id number] 09:16:00 09:16:00 [facility] 2019-05-27 2019-05-27 [facility] [id number] [facility] 15:03:00 15:03:00 [facility] 2019-05-22 2019-05-22 [facility] [id number] 13:30:00 13:30:00 [facility] 2019-05-08 2019-05-08 [facility] [id number] 09:55:00 09:55:00 [facility] 2019-05-06 2019-05-06 [facility] [id number] [facility] 14:30:00 14:30:00 [facility] 2019-05-02 2019-05-02 [facility] [id number] 10:23:00 10:23:00 [facility] [facility] 2019-04-28 2019-04-28 [facility] [id number] [address] 08:46:00 08:46:00 [facility] 2019-04-22 2019-04-22 [facility] [id number] 08:00:00 08:00:00 t [facility] ent Clinics 2019-04-17 2019-04-17 [facility] [id number] 13:30:00 13:30:00 t [facility] 2019-04-14 2019-04-14 [facility] [id number] [address] 13:21:00 13:21:00 t Urgent Urgent Care [facility] 2019-04-14 2019-04-14 [facility] [id number] 11:15:00 11:15:00 t Urgent Urgent Care L [facility] l Outpati ent Clinics 2018-07-31 2018-07-31 Appointtessa BYRNESCINDY Grider CINDY [id number] Univers 09:15:00 09:15:00 t; NABOR ABBOTT it y Jory Banks M.D. Physic ans 2018-05-30 2018-05-30 [facility] [id number] 13:00:00 23:59:00 Nabor 2018-05-30 2018-05-30 Appointtessa BYRNESSusanCINDY [facility] [id number] [facility] 14:00:00 14:00:00 t; NABOR ABBOTT cic and lenore y karuna TOMLIN M.D. [facility] [place] [facility] 2018-05-01 2018-05-01 AppointCINDY Montes [facility] [id number] [facility] 11:15:00 11:15:00 t; NABOR ABBOTT cic and it y karuna TOMLIN M.D. [facility] [place] [facility] at [facility] ans 2018-04-25 2018-04-25 Outpatient [facility] [id number] 06:46:00 13:58:00 Nabor 2018-04-23 2018-04-23 [facility] [id number] 05:57:00 09:10:00 Nabor 2018-04-17 2018-04-17 Outpatient [facility] [id number] 08:16:00 23:59:00 Nabor 2018-04-17 2018-04-17 Appointtessa BYRNESSusan CINDY [facility] [id number] [facility] 09:00:00 09:00:00 t; NABOR ABBOTT cic and it y karuna TOMLIN M.D. [facility] [place] [facility] ans Results Test Description Test Time Test Comments Results Result Sourc e Comments BLOOD BANK RESULTS 2018-04-19 Negative Memori al 20:18:00 (04/19/18 3:18 [place] PM) CHEM PANEL 2018-04-19 56 [facility] 20:18:00 [place] CHEM PANEL 2018-04-19 21 [facility] 20:18:00 [place] CHEM PANEL 2018-04-19 3.2 [facility] 20:18:00 Mario CHEM PANEL 2018-04-19 25 [facility] 20:18:00 [place] CHEM PANEL 2018-04-19 65 [facility] 20:18:00 [place] CHEM PANEL 2018-04-19 0.2 [facility] 20:18:00 [place] CHEM PANEL 2018-04-19 9.0 [facility] 20:18:00 [place] CHEM PANEL 2018-04-19 6.7 [facility] 20:18:00 [place] CHEM PANEL 2018-04-19 288 [facility] 20:18:00 [place] CHEM PANEL 2018-04-19 18 [facility] 20:18:00 [place] CHEM PANEL 2018-04-19 1.13 [facility] 20:18:00 [place] CHEM PANEL 2018-04-19 143 [facility] 20:18:00 [place] CHEM PANEL 2018-04-19 105 [facility] 20:18:00 [place] CHEM PANEL 2018-04-19 27 [facility] 20:18:00 [place] CHEM PANEL 2018-04-19 4.5 [facility] 20:18:00 [place] CHEM PANEL 2018-04-19 15.5 [facility] 20:18:00 [place] CHEM PANEL 2018-04-19 20:18:00 Test Item Value Reference Range Interpretation Comme nts B/C Ratio (test code = B/C Ratio) 16 1 6-25 [facility] [id number] 20:18:003.5[facility] PANEL 2018-04-19 20:18:00 Test Item Value Reference Range Interpretation Comments A/G Ratio (test code = A/G Ratio) 0.9 1 0.7-1.6 [facility]CPUMEVUNP9876-08-15 20:18:00 Test Item Value Reference Range Interpretation Comments PTT (test code = PTT) 25.8 s 22.9-35.8 [facility] CenterWlvtraaMKKEUJTRXM0410-50-50 20:18:00 Test Item Value Reference Range Interpretation Comments PT (test code = PT) 14.0 s 12.0-14.7 [facility]QUAN3811-34-26 20:18:00 Test Item Value Reference Range Interpretation Comments INR (test code = INR) 1.08 1 0.85-1.17 [facility]tl[facility]bnDNOGNHJGOM3847-07-55 20:18:69331Idyhyzrh HermannHEMATOLOGY 2018-04-19 20:18:008.7[facility] HryuacaCHSZCBOZYJ5850-68-55 20:18:00 Test Item Value Reference Range Interpretation Comments MCH (test code = MCH) 29.7 pg 27.0-31.0 [facility] UnyynupPYGPRJUCIO6754-30-29 20:18:0015.0[facility]ann[facility]MATOLOGY 2018-04-19 20:18:0033.1[facility] WdqqwnbBQITFDRPHY2701-45-79 20:18:0089.8[facility] UeigwhpDCHKEQDGFI8306-36-16 20:18:0039.1[facility] GabdcnsRXQZUOBDEX0154-35-70 20:18:006.0[facility] ZsirjhmEHPZVVMBAE5968-59-38 20:18:0012.9[facility] Mario SFHTPNIUGD3830-48-63 20:18:004.35[facility] IfadylzOIWLIAFWSJ3534-05-71 20:18:00 0.1[facility]orial YkwtgjdXZBJLWVIQE7901-65-58 20:18:003.5[facility]ann[facility]MATOLOGY 2018-04-19 20:18:000.4[facility] XctwgnlFLLNMVMXNO9539-87-82 20:18:000.3[facility] ThlcaciHBZHQJACAR5057-37-27 20:18:001.9[facility] UsplkbtCSWNUPCYYM0893-35-50 20:18:002.3[facility] NeqanthXUHUKKAZJN4113-16-18 20:18:007.4[facility] Mario FLSYXLAYJH6395-24-94 20:18:0031.6[facility] LzsmurqAHDRGUYKQO5281-22-37 20:18:00 58.4[facility] HermannSPECIAL PHGISZCEM0240-75-00 20:18:0010.3[facility] Mario URINE AND ERXCG9903-43-89 20:18:00Negative (04/19/18 3:18 PM)[facility] URINE AND UBIOX0912-72-82 20:18:00Negative (04/19/18 3:18 PM)[facility] URINE AND BVBEF0533-18-52 20:18:001[facility]ann[facility] AND RUNCC4798-35-44 20:18:00Negative (04/19/18 3:18 PM)[facility] PFBMO7284-11-90 20:18:005[facility] AND WUSUQ7503-06-38 20:18:00 Test Item Value Reference Range Interpretation Comments UA pH (test code = UA pH) 5.0 1 5.0-8.0 [facility] [id number] 20:18:00 Test Item Value Reference Range Interpretation Comments UA Spec Grav (test code = UA Spec 1.025 1 Grav) [facility] [id number] 20:18:00Slight *ABN*(04/19/18 3:18 PM) [facility] [id number] 20:18:00Yellow *NA*(04/19/18 3:18 PM) [facility] CZDJP1696-82-15 20:18:00Negative *NA*(04/19/18 3:18 PM) [facility] [id number] 20:00:00Product available (04/19/18 3:00 PM)[facility]
--- OUTSIDE RECORDS SUMMARY | 2020-02-19 15:32 | XMS REPORT ---
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, subsequent encounter Assessment Primary osteoarthritis of right M17.11 Active knee Problem Arthritis of knee, left M17.12 Acti ve Problem Arthritis of knee, right M17.11 Act kelin Problem Acute pain of right knee M25.561 Act kelin Assessment Pain in joint of right knee M25.561 Active Problem Primary osteoarthritis of left M17.12 Active knee Problem Primary osteoarthritis of right M17.11 Active knee Medications Medication Code Code Instructions Start End Status Dosage System Date Date Acetic Acid NDC 0 Active not defined Venlafaxine HCl ND 78567523076 75 MG Orally Active not ER defined Depakote ND 88167089848 500 MG Orally Active 3 TAB LETS AT NIGHT Olanzapine ND 27010333676 10 MG Orally Feb 25, Active 1 ta blet Once a day 2017 Omeprazole ND 88478557246 20 MG Oral Active (Prior Auth#:[id number]) atorvastatin ND 24434518983 20mg Active 1 table t by mouth at bedtime Triamcinolone [facility] [address]-47 Active not Acetonide defined BuPROPion HBr NDC 0 150 Active not defined Trulicity NDC 0 1.5MGM Active not defined Lyrica ND 07712742179 150 MG Orally Active not defined Metformin HCl ND 32537362394 500 MG Orally Active 1 tablet Once a day with a meal Lidocaine-Priloc [facility] [address]-10 Active n ot ayush defined Furosemide ND 83482585938 20 MG Oral Active (Prior Auth#:0000 [id number]) Humalog KwikPen ND 66760492706 100 UNIT/ML Active as Subcutaneous directed Eliquis ND 44728186363 5 MG Orally Active as directed Diclofenac [facility] [address]-94 Active not Sodium defined Tramadol HCl [facility] 46982726258 50 MG Orally Aug 29, Active 1 tablet Once a day 2019 as needed Tresiba [facility] 29879096293 200 UNIT/ML Active as FlexTouch Subcutaneous directed Results No Known Results Summary Purpose eClinicalWorks Submission
--- OUTSIDE RECORDS SUMMARY | 2020-02-19 15:32 | XMS REPORT ---
[...] End Status Dosage System Date Date Omeprazole [facility] 50237365283 20 MG Oral Active (Prior Auth#:[id number]) Furosemide ND 92267510820 20 MG Oral Active (Prior Auth#:0000 [id number]) Metformin HCl [facility] 79323756006 500 MG Orally Active 1 tablet Once a day with a meal Diclofenac [facility] [address]-77 Active not Sodium defined BuPROPion HBr NDC 0 150 Active not defined Venlafaxine HCl ND 57552293009 75 MG Orally Active not ER defined atorvastatin [facility] 09480347211 20mg Active 1 table t by mouth at bedtime Tresiba ND 88193632582 200 UNIT/ML Active as FlexTouch Subcutaneous directed Olanzapine ND 21818118834 10 MG Orally Feb 25, Active 1 ta blet Once a day 2018 Triamcinolone [facility] [address]-28 Active not Acetonide defined Acetic Acid NDC 0 Active not defined Eliquis ND 86655433897 5 MG Orally Active as directed Depakote ND 89911741235 500 MG Orally Active 3 TAB LETS AT NIGHT Lyrica ND 65659486004 150 MG Orally Active not defined Humalog KwikPen [facility] 98447273709 100 UNIT/ML Active as Subcutaneous directed Trulicity ND 0 1.5MGM Active not defined Tramadol HCl [facility] 69472707559 50 MG Orally Aug 29, Active 1 tablet Once a day 2019 as needed Lidocaine-Priloc [facility] [address]-54 Active n ot ayush defined Results No Known Results Summary Purpose eClinicalWorks Submission
--- OUTSIDE RECORDS SUMMARY | 2020-02-19 15:33 | XMS REPORT ---
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, subsequent encounter Problem Arthritis of knee, left M17.12 Acti ve Problem Arthritis of knee, right M17.11 Act kelin Problem Acute pain of right knee M25.561 Act kelin Assessment Primary osteoarthritis of right M17.11 Active knee Problem Primary osteoarthritis of left M17.12 Active knee Problem Primary osteoarthritis of right M17.11 Active knee Medications Medication Code Code Instructions Start End Status Dosage System Date Date Metformin HCl [facility] 44170392963 500 MG Orally Active 1 tablet Once a day with a meal Eliquis [facility] 26754312164 5 MG Orally Active as directed atorvastatin ND 80731604122 20mg Active 1 table t by mouth at bedtime Tramadol HCl [facility] 05408433277 50 MG Orally Aug 29, Active 1 tablet Once a day 2019 as needed Furosemide [facility] 11366461527 20 MG Oral Active (Prior Auth#:0000 [id number]) Tresiba [facility] 38156267270 200 UNIT/ML Active as FlexTouch Subcutaneous directed Venlafaxine HCl [facility] 14880410419 75 MG Orally Active not ER defined Depakote [facility] 54658685571 500 MG Orally Active 3 TAB LETS AT NIGHT Diclofenac [facility] [address]-95 Active not Sodium defined Tramadol HCl [facility] 63331928589 50 MG Orally 1 January 14January Active as PO Q 6 HRS PRN 2019 10, directed PAIN 2019 Lidocaine-Priloc [facility] [address]-65 Active n ot ayush defined Triamcinolone [facility] [address]-21 Active not Acetonide defined Lyrica [facility] 98611552035 150 MG Orally Active not defined Olanzapine NDC 83499876115 10 MG Orally Feb 25, Active 1 ta blet Once a day 2017 Omeprazole [facility] 13791525444 20 MG Oral Active (Prior Auth#:[id number]) Acetic Acid NDC 0 Active not defined Humalog KwikPen [facility] 44793199026 100 UNIT/ML Active as Subcutaneous directed BuPROPion HBr NDC 0 150 Active not defined Trulicity NDC 0 1.5MGM Active not defined Results No Known Results Summary Purpose eClinicalWorks Submission
--- OUTSIDE RECORDS SUMMARY | 2020-02-19 15:33 | XMS REPORT ---
[...] Start End Status Dosage System Date Date Eliquis [facility] 46642034998 5 MG Orally Active as directed Depakote ND 07296895691 500 MG Orally Active 3 TAB LETS AT NIGHT Trulicity NDC 0 1.5MGM Active not defined Olanzapine ND 59485954391 10 MG Orally Feb 25, Active 1 ta blet Once a day 2017 Tramadol HCl ND 93752589115 50 MG Orally 1 January 14January Active as PO Q 6 HRS PRN 2019 10, directed PAIN 2019 BuPROPion HBr NDC 0 150 Active not defined Lyrica ND 42913628260 150 MG Orally Active not defined Omeprazole [facility] 43201648604 20 MG Oral Active (Prior Auth#:0000 [id number]) Diclofenac [facility] [address]-51 Active not Sodium defined Metformin HCl [facility] 34517442614 500 MG Orally Active 1 tablet Once a day with a meal Venlafaxine HCl [facility] 01959589302 75 MG Orally Active not ER defined Triamcinolone [facility] [address]-18 Active not Acetonide defined Tresiba ND 40118239047 200 UNIT/ML Active as FlexTouch Subcutaneous directed Humalog KwikPen ND 09796217885 100 UNIT/ML Active as Subcutaneous directed Lidocaine-Priloc [facility] [address]-90 Active n ot ayush defined Acetic Acid ND 0 Active not defined atorvastatin [facility] 65501161685 20mg Active 1 table t by mouth at bedtime Furosemide [facility] 45941951294 20 MG Oral Active (Prior Auth#:0000 [id number]) Tramadol HCl [facility] 06065714249 50 MG Orally Aug 29, Active 1 tablet Once a day 2019 as needed Results No Known Results Summary Purpose eClinicalWorks Submission
[2020-02-19] MEDS ORDERED: CEFTRIAXONE/SWI 1gm 1 GM/10 ML SYR ONE (16:29)
[2020-02-19] MEDS ORDERED: VANCOMYCIN 1.5 GM in NA CHLORIDE 0.9% 500 ML IVPB ONE (17:00)
[2020-02-19 17:03] LABS: Absolute Lymphocytes (CBC) 1.6 K/uL (0.7-4.9); Basophils % 0.4 % (0-1.3); Hematocrit 34.9 % (36.0-45.0); Lymphocytes % 22.4 % (15.3-44.8); MPV 9.4 fL (7.6-11.3); RBC Red Blood Cell Count 4.32 M/uL (3.86-4.86)
[2020-02-19 17:13] LABS: Potassium 4.4 mmol/L (3.5-5.1)
--- NOTE | 2020-02-19 17:13 | RAD REPORT ---
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 There is irregular soft tissu e thickening in the region. No definitive osteomyelitis by plain radiograph. Prominent arthritic harrington ges are present involving the first metacarpal phalangeal joint. No soft tissue gas. Prominent planta r calcaneal spur.
[2020-02-19] MEDS ORDERED: MORPHINE 4 MG/ML SYR ONE (18:01)
[2020-02-19] MEDS ORDERED: ONDANSETRON 4 MG/2 ML VIAL ONE (18:01)
--- NOTE | 2020-02-19 18:02 | ER ---
Nurse's Notes [facility] Name: Renetta Ramsay Age: 54 yrs Sex: Female : 1965 Arrival Date: 02/19/2020 Time: 15:29 Bed 15 Private MD: Diagnosis: Left foot ulcer/cellulitis Presentation: 02/18 16:00 Chief complaint: Patient states: has chronic wound on right foot, states wound is mushy iw and it stinks, has been on Bactrim for two weeks, is being seen by Dr. Moe. Coronavirus screen: Patient denies a cough. Patient denies shortness of breath or difficulty breathing. Patient denies measured and/or subjective temperature greater than 100.4F prior to today's visit. Patient denies travel on a cruise ship or to a country the [facility] currently lists as an affected area. Patient denies contact with known and/or suspected case of COVID-19. Ebola Screen: Patient negative for fever greater than or equal to 101.5 degrees Fahrenheit, and additional compatible Ebola Virus Disease symptoms Patient denies exposure to infectious person. Patient denies travel to an Ebola-affected area in the 21 days before illness onset. No symptoms or risks identified at this time. Initial Sepsis Screen: Does the patient meet any 2 criteria? No. Patient's initial sepsis screen is negative. Does the patient have a suspected source of infection? No. Patient's initial sepsis screen is negative. Risk Assessment: Do you want to hurt yourself or someone else? Patient reports no desire to harm self or others. Onset of symptoms was February 19, 2020. 16:00 Method Of Arrival: Ambulatory iw 16:00 Acuity: OLY 3 iw Triage Assessment: 19:30 General: Appears in no apparent distress. comfortable, Behavior is calm, cooperative. mg2 METAL BUFFER: 19:30 lmp unknown mg2 Historical: - Allergies: 16:03 Amoxicillin; iw 16:03 ARIPIPRAZOLE; iw 16:03 Demerol; iw 16:03 PENICILLINS; iw 16:03 pentazocine lactate; iw 16:03 Talwin; iw - Home Meds: 16:03 atorvastatin 40 mg Oral tab 1 tab nightly [Active]; Depakote 500 mg Oral TbEC 3 tabs iw nightly [Active]; Eliquis 5 mg Oral tab 1 tab 2 times per day [Active]; furosemide 20 mg Oral tab 1 tab once daily [Active]; Humalog 100 unit/mL Sub-Q crtg 15 unit after meals and before bedtime [Active]; Lyrica 150 mg Oral 3 times per day [Active]; metformin 500 mg Oral Tb24 1 tab 2 times per day [Active]; olanzapine 5 mg Oral tab once daily [Active]; omeprazole 20 mg Oral cpDR 1 cap once daily [Active]; Tresiba FlexTouch U-100 100 unit/mL (3 mL) subcutaneous inpn 90 unit daily [Active]; Trulicity 0.75 mg/0.5 mL subcutaneous pnij 0.5 mL once wkly [Active]; venlafaxine 75 mg Oral cp24 once daily [Active]; - PMHx: 16:03 ADD/ADHD; Bipolar disorder; Chronic pain; Depression; Diabetes - NIDDM; DVT; Esophageal iw stricture; High Cholesterol; Hypertension; osteomyelitis; Pancreatitis; - PSHx: 16:03 Neck surgery; Appendectomy; Hysterectomy; colon resection; iw - Immunization history:: Adult Immunizations up to date. - Social history:: Smoking status: Patient reports the use of cigarette tobacco products, smokes one pack cigarettes per day. Screenin:30 Abuse screen: Denies threats or abuse. Denies injuries from another. Nutritional jr10 screening: No deficits noted. Tuberculosis screening: No symptoms or risk factors identified. Fall Risk No fall in past 12 months (0 pts). No secondary diagnosis (0 pts). IV access (20 points). Ambulatory Aid- None/Bed Rest/Nurse Assist (0 pts). Gait- Normal/Bed Rest/Wheelchair (0 pts) Mental Status- Oriented to own ability (0 pts). Assessment: 16:30 Pain: Complains of pain in lateral side of right foot and medial aspect of right toes. jr10 Neuro: No deficits noted. Cardiovascular: No deficits noted. Respiratory: No deficits noted. GI: No deficits noted. : No deficits noted. EENT: No deficits noted. Derm: Skin is dry, Skin is pink, warm \T\ dry. Skin temperature is warm Wound noted lateral side of right foot Wound is diabetic foot wound, small amt of purulent drainage noted. Musculoskeletal: No deficits noted. Vital Signs: 16:00 BP 134 / 79; Pulse 93; Resp 16 S; Temp 98.9(O); Pulse Ox 99% on R/A; Weight 127.01 kg; iw Height 5 ft. 11 in. (180.34 cm); Pain 9/10; 17:40 BP 132 / 72; Pulse 82; Resp 20; Pulse Ox 94% ; Pain 6/10; jr10 18:27 BP 128 / 72; Pulse 73; Resp 20; Pulse Ox 92% on R/A; jr10 20:00 BP 122 / 80; Pulse 70; Resp 18; Temp 98.9; Pulse Ox 96% on R/A; mg2 16:00 Body Mass Index 39.05 (127.01 kg, 180.34 cm) iw ED Course: 15:29 Patient arrived in ED. ag5 15:49 Lenny Lopez MD is Attending Physician. kdr 15:52 Nayeli Nickerson, MARK is Primary Nurse. jr10 16:01 Triage completed. iw 16:02 Arm band placed on. iw 16:30 Patient has correct armband on for positive identification. Bed in low position. Call jr10 light in reach. Side rails up X2. Pulse ox on. NIBP on. 16:35 Inserted saline lock: 20 gauge in right hand, using aseptic technique. Blood collected. dh4 17:07 Foot Right 2 View XRAY In Process Unspecified. EDMS 17:47 No provider procedures requiring assistance completed. jr10 18:00 Lucho Larsen MD is Hospitalizing Provider. kdr 18:00 Wound care: to diabetic foot wound was dressed with Kerlix, cling, nonadhesive jass, jr10 Patient tolerated well. 19:30 Alireza Mar, MARK is Primary Nurse. mg2 20:13 Patient admitted, IV remains in place. mg2 Administered Medications: 16:40 Drug: Rocephin - (cefTRIAXone) 1 grams Route: IVPB; Infused Over: 30 mins; Site: right [facility] hand; 17:20 Follow up: Response: No adverse reaction jr10 17:20 Follow up: IV Status: Completed infusion; given via IVP per pharmacy protocol and [facility] formulary 16:50 Drug: vancoMYCIN 1.5 grams Route: IVPB; Rate: calculated rate; Site: right hand; jr10 18:17 Drug: morphine 4 mg Route: IVP; Site: right hand; jr10 18:30 Follow up: Response: No adverse reaction; Pain is decreased jr10 18:18 Drug: Zofran (Ondansetron) 4 mg Route: IVP; Site: right hand; jr10 18:29 Follow up: Response: No adverse reaction jr10 Intake: Outcome: 18:01 Decision to Hospitalize by Provider. kdr 20:13 Admitted to Med/surg accompanied by tech, via wheelchair, room 208, with chart, Report mg2 called to MARK Braxton 20:13 Condition: stable 20:13 Instructed on the need for admit, Demonstrated understanding of instructions. 20:26 Patient left the ED. mg2 Signatures: Dispatcher [employer] EDMS Lenny Lopez MD MD kdr Jasmine Moses RN RN Alireza Mar RN RN mg2 Elizabeth Boyce Tyrell Arzola [facility] Nayeli Nickerson RN RN jr10
--- NOTE | 2020-02-19 18:02 | EDPHYS ---
Physician Documentation [facility] Name: Renetta Ramsay Age: 54 yrs Sex: Female : 1965 Arrival Date: 02/19/2020 Time: 15:29 Bed 15 Private MD: ED Physician Lenny Lopez HPI: 02/18 18:02 This 54 yrs old Female presents to ER via Ambulatory with complaints of Wound kdr Infection. 02/19 11:26 The patient presents with pain, that is chronic, swelling, tenderness. The complaints kdr affect the right foot. Context: The problem was sustained at home, Mechanism of Injury: Unknown the patient can fully bear weight, the patient is able to ambulate. Onset: The symptoms/episode began/occurred gradually, The patient has had increasing pain and swelling to the right foot secondary to a 1 cm round ulcerated area on the lateral aspect of the right foot distal fifth metatarsal. Modifying factors: The symptoms are alleviated by nothing, the symptoms are aggravated by weight bearing. Associated signs and symptoms: Pertinent positives: of the lateral side of right foot and dorsum of right foot, swelling, warmth. Severity of symptoms: At their worst the symptoms were mild, moderate, just prior to arrival, in the emergency department the symptoms are unchanged. The patient has not experienced similar symptoms in the past. The patient has been recently seen by a physician: the patient's primary care provider. The patient is finishing a two week course of Bactrim and the wound/swelling is getting worse. 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: 02/18 19:30 lmp unknown mg2 Historical: - Allergies: 16:03 Amoxicillin; iw 16:03 ARIPIPRAZOLE; iw 16:03 Demerol; iw 16:03 PENICILLINS; iw 16:03 pentazocine lactate; iw 16:03 Talwin; iw - Home Meds: 16:03 atorvastatin 40 mg Oral tab 1 tab nightly [Active]; Depakote 500 mg Oral TbEC 3 tabs iw nightly [Active]; Eliquis 5 mg Oral tab 1 tab 2 times per day [Active]; furosemide 20 mg Oral tab 1 tab once daily [Active]; Humalog 100 unit/mL Sub-Q crtg 15 unit after meals and before bedtime [Active]; Lyrica 150 mg Oral 3 times per day [Active]; metformin 500 mg Oral Tb24 1 tab 2 times per day [Active]; olanzapine 5 mg Oral tab once daily [Active]; omeprazole 20 mg Oral cpDR 1 cap once daily [Active]; Tresiba FlexTouch U-100 100 unit/mL (3 mL) subcutaneous inpn 90 unit daily [Active]; Trulicity 0.75 mg/0.5 mL subcutaneous pnij 0.5 mL once wkly [Active]; venlafaxine 75 mg Oral cp24 once daily [Active]; - PMHx: 16:03 ADD/ADHD; Bipolar disorder; Chronic pain; Depression; Diabetes - NIDDM; DVT; Esophageal iw stricture; High Cholesterol; Hypertension; osteomyelitis; Pancreatitis; - PSHx: 16:03 Neck surgery; Appendectomy; Hysterectomy; colon resection; iw - Immunization history:: Adult Immunizations up to date. - Social history:: Smoking status: Patient reports the use of cigarette tobacco products, smokes one pack cigarettes per day. ROS: 02/19 11:26 Constitutional: Negative for fever, chills, and weight loss, Eyes: Negative for injury, kdr pain, redness, and discharge, ENT: Negative for injury, pain, and discharge, Neck: Negative for injury, pain, and swelling, Cardiovascular: Negative for chest pain, palpitations, and edema, Respiratory: Negative for shortness of breath, cough, wheezing, and pleuritic chest pain, Abdomen/GI: Negative for abdominal pain, nausea, vomiting, diarrhea, and constipation, Back: Negative for injury and pain, : Negative for injury, bleeding, discharge, and swelling, Skin: Negative for injury, rash, and discoloration, Neuro: Negative for headache, weakness, numbness, tingling, and seizure activity. Psych: Negative for depression, anxiety, suicide ideation, homicidal ideation, and hallucinations, Allergy/Immunology: Negative for hives, rash, and allergies, Endocrine: Negative for neck swelling, polydipsia, polyuria, polyphagia, and marked weight changes, Hematologic/Lymphatic: Negative for swollen nodes, abnormal bleeding, and unusual bruising. MS/extremity: Positive for erythema, pain, swelling, tenderness, of the lateral side of right foot and dorsum of right foot. Exam: 11:26 Constitutional: This is a well developed, well nourished patient who is awake, alert, kdr and in no acute distress. Head/Face: Normocephalic, atraumatic. Eyes: Pupils equal round and reactive to light, extra-ocular motions intact. Lids and lashes normal. Conjunctiva and sclera are non-icteric and not injected. Cornea within normal limits. Periorbital areas with no swelling, redness, or edema. ENT: Nares patent. No nasal discharge, no septal abnormalities noted. Tympanic membranes are normal and external auditory canals are clear. Oropharynx with no redness, swelling, or masses, exudates, or evidence of obstruction, uvula midline. Mucous membranes moist. Neck: Trachea midline, no thyromegaly or masses palpated, and no cervical lymphadenopathy. Supple, full range of motion without nuchal rigidity, or vertebral point tenderness. No Meningismus. Chest/axilla: Normal chest wall appearance and motion. Nontender with no deformity. No lesions are appreciated. Cardiovascular: Regular rate and rhythm with a normal S1 and S2. No gallops, murmurs, or rubs. Normal PMI, no JVD. No pulse deficits. Respiratory: Lungs have equal breath sounds bilaterally, clear to auscultation and percussion. No rales, rhonchi or wheezes noted. No increased work of breathing, no retractions or nasal flaring. Abdomen/GI: Soft, non-tender, with normal bowel sounds. No distension or tympany. No guarding or rebound. No evidence of tenderness throughout. Back: No spinal tenderness. No costovertebral tenderness. Full range of motion. Neuro: Awake and alert, GCS 15, oriented to person, place, time, and situation. Cranial nerves II-XII grossly intact. Motor strength 5/5 in all extremities. Sensory grossly intact. Cerebellar exam normal. Normal gait. Psych: Awake, alert, with orientation to person, place and time. Behavior, mood, and affect are within normal limits. 11:26 Musculoskeletal/extremity: Extremities: grossly normal except: erythema, pain, swelling, tenderness. Vital Signs: 02/18 16:00 BP 134 / 79; Pulse 93; Resp 16 S; Temp 98.9(O); Pulse Ox 99% on R/A; Weight 127.01 kg; iw Height 5 ft. 11 in. (180.34 cm); Pain 9/10; 17:40 BP 132 / 72; Pulse 82; Resp 20; Pulse Ox 94% ; Pain 6/10; jr10 18:27 BP 128 / 72; Pulse 73; Resp 20; Pulse Ox 92% on R/A; jr10 20:00 BP 122 / 80; Pulse 70; Resp 18; Temp 98.9; Pulse Ox 96% on R/A; mg2 16:00 Body Mass Index 39.05 (127.01 kg, 180.34 cm) iw MDM: 18:01 Patient medically screened. [facility] 02/19 11:26 Data reviewed: vital signs, nurses notes, lab test result(s), radiologic studies. kdr Counseling: I had a detailed discussion with the patient and/or guardian regarding: the historical points, exam findings, and any diagnostic results supporting the discharge/admit diagnosis, lab results, radiology results, the need for further work-up and treatment in the hospital. 02/18 16:01 Order name: CBC with Diff; Complete Time: 17:50 kdr 02/18 16:01 Order name: Chem 7; Complete Time: 17:50 kdr 02/18 18:18 Order name: CBC with Automated Diff EDNE 02/18 18:18 Order name: CBC with Automated Diff EDNE 02/18 18:18 Order name: Comprehensive Metabolic Panel EDNE 02/18 18:18 Order name: Comprehensive Metabolic Panel EDNE 02/18 16:01 Order name: Foot Right 2 View XRAY; Complete Time: 17:50 kdr 02/18 18:18 Order name: Magnesium EDNE 02/18 18:18 Order name: Magnesium EDNE 02/18 18:18 Order name: Phosphorus EDNE 02/18 18:19 Order name: Phosphorus EDNE 02/18 18:19 Order name: Urinalysis EDNE 02/18 18:53 Order name: Vancomycin Level Trough EDNE 02/18 18:18 Order name: CONS Physician Consult EDNE 02/18 18:18 Order name: Consistent Carb (ADA) 1800 Leonardo EDMS 02/18 18:30 Order name: Foot Right W Con EDMS Administered Medications: 02/18 16:40 Drug: Rocephin - (cefTRIAXone) 1 grams Route: IVPB; Infused Over: 30 mins; Site: right [facility] hand; 17:20 Follow up: Response: No adverse reaction [facility] 17:20 Follow up: IV Status: Completed infusion; given via IVP per pharmacy protocol and [facility] formulary 16:50 Drug: vancoMYCIN 1.5 grams Route: IVPB; Rate: calculated rate; Site: right hand; jr10 18:17 Drug: morphine 4 mg Route: IVP; Site: right hand; jr10 18:30 Follow up: Response: No adverse reaction; Pain is decreased jr10 18:18 Drug: Zofran (Ondansetron) 4 mg Route: IVP; Site: right hand; jr10 18:29 Follow up: Response: No adverse reaction jr Disposition: 02/19/20 18:01 Hospitalization ordered by Lucho Larsen for Inpatient Admission. Preliminary diagnosis is Left foot ulcer/cellulitis. - Bed requested for Telemetry/MedSurg (Inpatient). - Status is Inpatient Admission. mg2 - Condition is Fair. - Problem is an ongoing problem. - Symptoms are unchanged. Signatures: Dispatcher [employer] EDNE Joanne Larsen RN RN dw Lenny Lopez MD MD [facility] Jasmine Moses RN RN iw Alireza Mar RN RN mg2 Nayeli Nickerson RN RN jr10 Corrections: (The following items were deleted from the chart) 18:55 18:31 Vancomycin Level Trough ordered. [facility] 19:29 18:01 Hospitalization Ordered by Lucho Larsen MD for Inpatient Admission. Preliminary dw diagnosis is Left foot ulcer/cellulitis. Bed requested for Telemetry/MedSurg (Inpatient). Status is Inpatient Admission. Condition is Fair. Problem is an ongoing problem. Symptoms are unchanged. kdr 20:26 19:29 02/19/2020 18:01 Hospitalization Ordered by Lucho Larsen MD for Inpatient mg2 Admission. Preliminary diagnosis is Left foot ulcer/cellulitis. Bed requested for Telemetry/MedSurg (Inpatient). Status is Inpatient Admission. Condition is Fair. Problem is an ongoing problem. Symptoms are unchanged. dw
[2020-02-19] MEDS ORDERED: ACETAMINOPHEN 500 MG TAB PO PRN (18:14)
[2020-02-19] MEDS ORDERED: ONDANSETRON 4 MG/2 ML VIAL IV PRN (18:14)
--- NOTE | 2020-02-19 18:26 | P.HP ---
Certification for Inpatient Patient admitted to: Inpatient With expected LOS: >2 Midnights Practitioner: I am a practitioner with admitting privileges, knowledge of patient current condition, hospital course, and medical plan of care. Services: Services provided to patient in accordance with Admission requirements found in Title 42 Section 412.3 of the Code of Federal Regulations Patient History Date of Service: 02/20/20 Reason for admission: Right foot pain History of Present Illness: 54-year-old female with past medical history of ADHD, bipolar disorder, chronic pain, diabetes , DVT, esophageal stricture, hypertension, hyperlipidemia, pancreatitis, diverticulitis, osteomyelitis. He came with pain and swelling in the right foot on the lateral aspect chest pain going on for the last 3 months. Has been followed by Dr. Moe . As the pain and has purulent swelling started worsening and was brought to the ER Denies any fever or chills No nausea vomiting or diarrhea Patient was assessed in the ER and was found to have Cellulitis and discharge from the foot along with the possibility of cellulitis/osteomyelitis of and was admitted for further management Allergies pentazocine lactate [From Talwin] Allergy (Mild, Verified 02/19/20 21:04) Rash amoxicillin Allergy (Verified 02/19/20 21:04) Unknown aripiprazole [From Abilify] Allergy (Verified 02/19/20 21:04) Unknown meperidine [From Demerol] Allergy (Verified 02/19/20 21:04) Unknown Penicillins Allergy (Verified 02/19/20 21:04) Unknown Home medications list reviewed: Yes Home Medications: Apixaban [Eliquis] 5 mg PO DAILY 02/19/20 Atorvastatin Calcium [Lipitor] 40 mg PO BEDTIME 02/19/20 Bupropion *Xl* [Wellbutrin XL*] 1 tab PO DAILY 02/19/20 Divalproex Sodium [Depakote ER] 1,500 mg PO BEDTIME 02/19/20 Furosemide [Lasix] 20 mg PO DAILY 02/19/20 Insulin Degludec [Tresiba Flextouch U-200] 100 units SQ DAILY 02/19/20 Insulin Lispro [Humalog Kwikpen U-100] 15 units SQ TID 02/19/20 Metformin HCl [Metformin HCl ER] 1 tab PO BEDTIME 02/19/20 Metformin HCl [Metformin HCl ER] 500 mg PO DAILY 02/19/20 OLANZapine [Zyprexa*] 1 tab PO BEDTIME 02/19/20 Olanzapine [Zyprexa] 1 tab PO DAILY 02/19/20 Omeprazole 1 cap PO DAILY 02/19/20 Pregabalin [Lyrica] 150 mg PO TID 02/19/20 Venlafaxine HCl [Venlafaxine HCl ER] 1 cap PO DAILY 02/19/20 - Past Medical/Surgical History Diabetic: Yes Past Medical History: Reviewed- Non-Contributory -: Diabetes mellitus type 2 -: Hyperlipidemia -: Bipolar disorder, [facility] -: Diverticulosis -: Right DVT with bilateral PE -: Carpal tunnel syndrome -: History of suicidal ideation -: Asthma -: Obstructive sleep apnea -: Tobacco abuse -: Mild sleep apnea -: dvt- right leg Past Surgical History: Reviewed- Non-Contributory -: Appendectomy -: Hysterectomy -: Left knee surgery -: Carpal tunnel repair of the left wrist -: Colon resection due to diverticulitis -: cervical laminectomy infusion, lumbar herniated disc repair -: I/D of the left toe Psychosocial/ Personal History: She has never been . She has 1 son. She does not work. She currently lives with her mother. - Family History Father -: Heart disease Mother -: Heart disease, Hypertension, Diabetes, Cancer Notes: breast cancer - Social History Smoking Status: Former smoker Alcohol use: No CD- Drugs: No Caffeine use: Yes Review of Systems 10-point ROS is otherwise unremarkable Physical Examination - Vital Signs Temperature: 98.4 F Blood Pressure: 126/78 Pulse: 76 Respirations: 18 - Physical Exam General: Alert, In no apparent distress, Obese HEENT: Atraumatic, Normocephalic Neck: Supple, 2+ carotid pulse no bruit Respiratory: Clear to auscultation bilaterally Cardiovascular: Regular rate/rhythm, Normal S1 S2 Capillary refill: <2 Seconds Gastrointestinal: Soft and benign, W/out hepatosplenomegaly Musculoskeletal: No clubbing, No swelling, Erythema, Tenderness Integumentary: Diabetic ulcer Neurological: Normal speech, Normal strength at 5/5 x4 extr Lymphatics: No axilla or inguinal lymphadenopathy - Studies Laboratory Data (last 24 hrs) 02/19/20 16:33: Sodium 141, Potassium 4.4, BUN 19 H, Creatinine 1.11, Glucose 209 H 02/19/20 16:33: WBC 7.3, Hgb 11.4 L, Hct 34.9 L, Plt Count 175 Assessment and Plan - Problems (Diagnosis) (1) Cellulitis of foot associated with diabetes mellitus Current Visit: Yes Status: Acute (2) Bipolar disorder Onset Date: 02/14/16 Current Visit: No Status: Chronic Qualifiers: Active/Remission status: remission status unspecified Qualified Code(s): F31.9 - Bipolar disorder, unspecified (3) CAD (coronary artery disease) Current Visit: No Status: Chronic Qualifiers: Coronary Disease-Associated Artery/Lesion type: [place] artery [place] vs. transplanted heart: [place] heart Associated angina: without angina Qualified Code(s): I25.10 - Atherosclerotic heart disease of [place] coronary artery without angina pectoris (4) CKD (chronic kidney disease) stage 3, GFR 30-59 ml/min Onset Date: 06/10/18 Current Visit: No Status: Chronic (5) Diabetes mellitus type II, non insulin dependent Onset Date: 02/14/16 Current Visit: No Status: Chronic (6) GERD (gastroesophageal reflux disease) Onset Date: 01/12/17 Current Visit: No Status: Chronic Qualifiers: Esophagitis presence: esophagitis presence not specified Qualified Code(s): K21.9 - Gastro-esophageal reflux disease without esophagitis (7) History of pulmonary embolus (PE) Current Visit: No Status: Chronic (8) Hyperlipidemia Onset Date: 02/14/16 Current Visit: No Status: Chronic Qualifiers: Hyperlipidemia type: unspecified Qualified Code(s): E78.5 - Hyperlipidemia, unspecified (9) Hypertension Onset Date: 01/12/17 Current Visit: No Status: Chronic Qualifiers: Hypertension type: essential hypertension Qualified Code(s): I10 - Essential (primary) hypertension (10) Obesity Onset Date: 01/12/17 Current Visit: No Status: Chronic Qualifiers: Obesity type: unspecified obesity type - Advance Directives Does patient have a Living Will: No Does patient have a Durable POA for Healthcare: Yes Physician Review Additional Text: Diabetic foot ulcer Diabetes Hypertension Hyperlipidemia History of depression and bipolar disorder History of DVT Plan Monitor under telemetry Pain control IV antibiotics Continue home medications and titrate as needed Will consult Dr Moe Will get a CT or an MRI if possible of the foot Insulin sliding scale Antihypertensives titrated GI/DVT prophylaxis Time Spent Managing Pts Care (In Minutes): 45
[2020-02-19] MEDS ORDERED: D50W 25 GM/50 ML SYRINGE/VIAL IV PRN (18:40)
[2020-02-19] MEDS ORDERED: GLUCAGON 1 MG/VIAL IM PRN (18:40)
[2020-02-19] MEDS ORDERED: VANCOMYCIN 1.25 GM in NA CHLORIDE 0.9% 250 ML IVPB SCH (19:00)
[2020-02-19] MEDS: Levofloxacin500mg IV 500 MG/100 ML BAG IV SCH ×2 (20:00→21:28)
[2020-02-19] MEDS: OLANZapine 10 MG TABLET PO SCH (21:00)
[2020-02-19] MEDS: INSULIN -REGULAR HUMAN 50 UNIT/0.5 ML ML SQ SCH (21:00)
[2020-02-19] MEDS ORDERED: VANCOMYCIN 500 MG in NA CHLORIDE 0.9% 100 ML IVPB ONE (21:00)
[2020-02-19] MEDS ORDERED: PREGABALIN 75 MG CAP PO SCH (21:00)
[2020-02-19] MEDS ORDERED: VANCOMYCIN 500 MG in NA CHLORIDE 0.9% 150 ML IVPB ONE (21:00)
[2020-02-19 21:01] VITALS: BMI 39.2
[2020-02-19] MEDS: DIVALPROEX DR 500MG TAB PO SCH (21:26)
[2020-02-19] MEDS: VENLAFAXINE HCL XR 75 MG CAP PO SCH (21:27)
[2020-02-19] MEDS: INSULIN LISPRO 100 UNIT/1 ML SQ SCH (21:27)
[2020-02-19] MEDS ORDERED: NA CHLORIDE 0.9% 250 ML ONE (21:35)
[2020-02-19] MEDS: MORPHINE 2 MG/ML SYR IV PRN (21:40)
[2020-02-19] MEDS ORDERED: VANCOMYCIN 500 MG/VIAL ONE (22:48)
[2020-02-19] MEDS ORDERED: NA CHLORIDE 0.9% 100 ML ONE (23:04)
[2020-02-20] MEDS: MORPHINE 2 MG/ML SYR IV PRN ×2 (03:29→12:28)
[2020-02-20 05:35] LABS: Absolute Lymphocytes (CBC) 1.9 K/uL (0.7-4.9); Basophils % 0.6 % (0-1.3); Hematocrit 33.9 % (36.0-45.0); Lymphocytes % 29.6 % (15.3-44.8); RBC Red Blood Cell Count 4.15 M/uL (3.86-4.86)
[2020-02-20] MEDS: PANTOPRAZOLE 40MG TABLET PO SCH (05:39)
[2020-02-20 05:46] LABS: Bilirubin Total 0.2 mg/dL (0.2-1.0); Magnesium 2.1 mg/dL (1.8-2.4); Phosphorus 4.7 mg/dL (2.5-4.9); Potassium 4.9 mmol/L (3.5-5.1); Protein, Total 6.4 g/dL (6.4-8.2)
[2020-02-20 05:57] LABS: Urine Appearance CLEAR; Urine Bilirubin NEGATIVE (NEG); Urine Blood NEGATIVE (NEG); Urine Color YELLOW; Urine Glucose NEGATIVE (NEG); Urine Protein NEGATIVE (NEG); Urine Specific Gravity >=1.030 (1.005-1.030); Urine pH 5.5 (5.0-7.0)
[2020-02-20 05:59] LABS: Urine Microscopic Reflex NO UMIC
[2020-02-20] MEDS: INSULIN LISPRO 100 UNIT/1 ML SQ SCH ×4 (07:30→20:26)
[2020-02-20] MEDS: INSULIN -REGULAR HUMAN 50 UNIT/0.5 ML ML SQ SCH ×4 (07:30→21:00)
--- NOTE | 2020-02-20 08:11 | P.CNS ---
Date of Consult: 02/20/20 Reason for Consult: cellulititis right foot Chief Complaint: Right foot pain Allergies pentazocine lactate [From Talwin] Allergy (Mild, Verified 02/19/20 21:04) Rash amoxicillin Allergy (Verified 02/19/20 21:04) Unknown aripiprazole [From Abilify] Allergy (Verified 02/19/20 21:04) Unknown meperidine [From Demerol] Allergy (Verified 02/19/20 21:04) Unknown Penicillins Allergy (Verified 02/19/20 21:04) Unknown Home Medications: Apixaban [Eliquis] 5 mg PO DAILY 02/19/20 Atorvastatin Calcium [Lipitor] 40 mg PO BEDTIME 02/19/20 Bupropion *Xl* [Wellbutrin XL*] 1 tab PO DAILY 02/19/20 Divalproex Sodium [Depakote ER] 1,500 mg PO BEDTIME 02/19/20 Furosemide [Lasix] 20 mg PO DAILY 02/19/20 Insulin Degludec [Tresiba Flextouch U-200] 100 units SQ DAILY 02/19/20 Insulin Lispro [Humalog Kwikpen U-100] 15 units SQ TID 02/19/20 Metformin HCl [Metformin HCl ER] 1 tab PO BEDTIME 02/19/20 Metformin HCl [Metformin HCl ER] 500 mg PO DAILY 02/19/20 OLANZapine [Zyprexa*] 1 tab PO BEDTIME 02/19/20 Olanzapine [Zyprexa] 1 tab PO DAILY 02/19/20 Omeprazole 1 cap PO DAILY 02/19/20 Pregabalin [Lyrica] 150 mg PO TID 02/19/20 Venlafaxine HCl [Venlafaxine HCl ER] 1 cap PO DAILY 02/19/20 - Past Medical/Surgical History Diabetic: Yes -: Diabetes mellitus type 2 -: Hyperlipidemia -: Bipolar disorder, [facility] -: Diverticulosis -: Right DVT with bilateral PE -: Carpal tunnel syndrome -: History of suicidal ideation -: Asthma -: Obstructive sleep apnea -: Tobacco abuse -: Mild sleep apnea -: dvt- right leg -: Appendectomy -: Hysterectomy -: Left knee surgery -: Carpal tunnel repair of the left wrist -: Colon resection due to diverticulitis -: cervical laminectomy infusion, lumbar herniated disc repair -: I/D of the left toe Psychosocial/ Personal History: She has never been . She has 1 son. She does not work. She currently lives with her mother. - Family History Father Medical History: Heart disease Mother Medical History: Heart disease, Hypertension, Diabetes, Cancer Notes: breast cancer - Social History Smoking Status: Current every day smoker Alcohol use: No CD- Drugs: No Caffeine use: Yes Place of Residence: Home Review of Systems 10-point ROS is otherwise unremarkable Physical Examination Temp Pulse Resp BP Pulse Ox 96.8 F 77 14 110/57 L 99 02/20/20 04:00 02/20/20 04:00 02/20/20 04:00 02/20/20 04:00 02/20/20 04:00 General: Alert, In no apparent distress, Oriented x3 Cardiovascular: Normal pulses, Edema Capillary refill: <2 Seconds Musculoskeletal: No clubbing, No swelling, No contractures, No erythema, No tenderness, No warmth, Other (previous amputation right fifth digit) Integumentary: Diabetic ulcer (ulceration lateral aspect of right fifth mpj is improved, decreased in dimension compared to last visit in wound care. No purulence. Periwound erythema noted, patient states that it is decreased compared to preadmission) Neurological: Abnormal sensation Laboratory Data (last 24 hrs) 02/19/20 16:33: Sodium 141, Potassium 4.4, BUN 19 H, Creatinine 1.11, Glucose 209 H 02/19/20 16:33: WBC 7.3, Hgb 11.4 L, Hct 34.9 L, Plt Count 175 - Problems (1) Diabetic foot ulcer Onset Date: 08/23/17 Current Visit: No Status: Acute Plan: bid wet to dry packing of wound wound culture right foot Qualifiers: Diabetic foot ulcer location: other Diabetes mellitus type: type 2 Non- pressure ulcer stage: with fat layer exposed (2) Osteomyelitis due to type 2 diabetes mellitus Onset Date: 03/31/16 Current Visit: No Status: Chronic Plan: mri right foot without contrast to evaluate for osteomyelitis
[2020-02-20] MEDS: ATORVASTATIN 20 MG TAB PO SCH (09:30)
[2020-02-20] MEDS: PREGABALIN 150 MG CAP PO SCH ×2 (09:30→20:27)
[2020-02-20] MEDS: VENLAFAXINE HCL XR 75 MG CAP PO SCH ×2 (09:31→20:28)
[2020-02-20] MEDS: FUROSEMIDE 20 MG TABLET PO SCH (09:31)
[2020-02-20] MEDS: BUPROPION HCL XL 150 MG TAB PO SCH (09:33)
[2020-02-20] MEDS: HYDROCODONE/APAP 7.5/325 MG TAB PO PRN ×2 (09:33→20:26)
--- NOTE | 2020-02-20 09:46 | RAD REPORT ---
EXAM DESCRIPTION: MRIFoot Right Wo Cont02/20/2020 9:12 am CLINICAL HISTORY: Right foot pain COMPARISON: 2018 TECHNIQUE: Axial, sagittal and coronal magnetic resonance imaging of the right foot was obtained. FINDINGS: Fifth phalanx has been resected. Erosion involves the fifth metatarsal head and neck with abnormal signal. Abnormal signal also is pre sent within the distal fifth metatarsal shaft. Edema is present within the adjacent soft tissue. Degenerative changes involve the first MTP joint and adjacent bone. IMPRESSION: Osteomyelitis involving fifth metatarsal
--- NOTE | 2020-02-20 10:42 | P.PN ---
Subjective Date of Service: 02/20/20 Chief Complaint: Right foot pain Subjective: No new changes, Improving Review of Systems 10-point ROS is otherwise unremarkable Physical Examination - Vital Signs Temperature: 97.3 F Blood Pressure: 136/71 Pulse: 84 Respirations: 20 Pulse Ox (%): 90 - Physical Exam General: Alert, In no apparent distress, Obese HEENT: Atraumatic, Normocephalic Neck: Supple Respiratory: Clear to auscultation bilaterally Cardiovascular: Regular rate/rhythm, Normal S1 S2 Capillary refill: <2 Seconds Gastrointestinal: Soft and benign, W/out hepatosplenomegaly Musculoskeletal: No clubbing, Erythema, Tenderness, Other (Swelling , tenderness of the foot in the lateral aspect ) Integumentary: Tenderness/swelling, Erythema, Warmth Neurological: Normal speech, Normal strength at 5/5 x4 extr Lymphatics: No axilla or inguinal lymphadenopathy - Studies Laboratory Data (last 24 hrs) 02/19/20 16:33: Sodium 141, Potassium 4.4, BUN 19 H, Creatinine 1.11, Glucose 209 H 02/19/20 16:33: WBC 7.3, Hgb 11.4 L, Hct 34.9 L, Plt Count 175 Assessment & Plan - Problems (Diagnosis) (1) Cellulitis of foot associated with diabetes mellitus Current Visit: Yes Status: Acute (2) Bipolar disorder Onset Date: 02/14/16 Current Visit: No Status: Chronic Qualifiers: Active/Remission status: remission status unspecified Qualified Code(s): F31.9 - Bipolar disorder, unspecified (3) CAD (coronary artery disease) Current Visit: No Status: Chronic Qualifiers: Coronary Disease-Associated Artery/Lesion type: [place] artery [place] vs. transplanted heart: [place] heart Associated angina: without angina Qualified Code(s): I25.10 - Atherosclerotic heart disease of [place] coronary artery without angina pectoris (4) CKD (chronic kidney disease) stage 3, GFR 30-59 ml/min Onset Date: 06/10/18 Current Visit: No Status: Chronic (5) Diabetes mellitus type II, non insulin dependent Onset Date: 02/14/16 Current Visit: No Status: Chronic (6) GERD (gastroesophageal reflux disease) Onset Date: 01/12/17 Current Visit: No Status: Chronic Qualifiers: Esophagitis presence: esophagitis presence not specified Qualified Code(s): K21.9 - Gastro-esophageal reflux disease without esophagitis (7) History of pulmonary embolus (PE) Current Visit: No Status: Chronic (8) Hyperlipidemia Onset Date: 02/14/16 Current Visit: No Status: Chronic Qualifiers: Hyperlipidemia type: unspecified Qualified Code(s): E78.5 - Hyperlipidemia, unspecified (9) Hypertension Onset Date: 01/12/17 Current Visit: No Status: Chronic Qualifiers: Hypertension type: essential hypertension Qualified Code(s): I10 - Essenti al (primary) hypertension (10) Obesity Onset Date: 01/12/17 Current Visit: No Status: Chronic Qualifiers: Obesity type: unspecified obesity type Physician Review Additional Text: Diabetic foot ulcer Diabetes Hypertension Hyperlipidemia History of depression and bipolar disorder History of DVT Plan Monitor under telemetry Pain control IV antibiotics Continue home medications and titrate as needed Will consult Dr Moe Will get a CT or an MRI if possible of the foot Insulin sliding scale Antihypertensives titrated GI/DVT prophylaxis 02/20/2020 Continue antibiotics pain controlled well Discuss with Dr. Moe Getting an MRI today If MRI shows osteo will order a PICC line and possible IV antibiotic with home health Cultures awaited Monitor closely insulin sliding scale continue home medications and titrate as needed Time Spent Managing Pts Care (In Minutes): 42
--- NOTE | 2020-02-20 13:40 | P.CNS ---
Date of Consult: 02/20/20 Subjective: Patient is a 54 year old female who presents with worsening erythema and swelling to right lateral foot. Patient had right foot 5th toe amputation in May 2019 and then developed an ulcer to right lateral foot in June 2020. Patient has been following up with Dr. Moe in the wound healing center. MRI shows osteomyelitis to right foot 5th metatarsal which I have been consulted for. Past medical/surgical history: -: Diabetes mellitus type 2 -: Hyperlipidemia -: Bipolar disorder, [facility] -: Diverticulosis -: Right DVT with bilateral PE -: Carpal tunnel syndrome -: History of suicidal ideation -: Asthma -: Obstructive sleep apnea -: Tobacco abuse -: Mild sleep apnea -: dvt- right leg -: Appendectomy -: Hysterectomy -: Left knee surgery -: Carpal tunnel repair of the left wrist -: Colon resection due to diverticulitis -: cervical laminectomy infusion, lumbar herniated disc repair -: I/D of the left toe Social history: Patient smokes cigarettes 1/2 PPD, denies alcohol use. Mother at home helps with dressing changes Allergies pentazocine lactate [From Talwin] Allergy (Mild, Verified 02/19/20 21:04) Rash amoxicillin Allergy (Verified 02/19/20 21:04) Unknown aripiprazole [From Abilify] Allergy (Verified 02/19/20 21:04) Unknown meperidine [From Demerol] Allergy (Verified 02/19/20 21:04) Unknown Penicillins Allergy (Verified 02/19/20 21:04) Unknown Active Medications Acetaminophen (Tylenol -Extra Strength) 500 mg PO Q4HP PRN PRN Reason: TEMP > 100' F Stop: 03/20/20 18:15 Hydrocodone Bitart/Acetaminophen (Taylor 7.5/325 Mg) 1 tab PO Q4H PRN PRN Reason: Pain scale 8-10 (Severe) Stop: 03/20/20 18:19 Last Admin: 02/20/20 09:33 Dose: 1 tab Documented by: Atorvastatin Calcium (Lipitor) 40 mg PO DAILY [facility], [facility]1983 Stop: 03/21/20 09:01 Last Admin: 02/20/20 09:30 Dose: 40 mg Documented by: Bupropion HCl (Wellbutrin Xl) 150 mg PO DAILY [facility], [facility]1983 Stop: 03/21/20 09:01 Last Admin: 02/20/20 09:33 Dose: 150 mg Documented by: Dextrose (Dextrose 50% Syringe/Vial) 12.5 gm IV PRN PRN PRN Reason: HYPOGLYCEMIA Stop: 03/20/20 18:41 Divalproex Sodium (Depakote) 1,500 mg PO BEDTIME ESTRADA Stop: 03/20/20 21:01 Last Admin: 02/19/20 21:26 Dose: 1,500 mg Documented by: Furosemide (Lasix) 20 mg PO DAILY [facility], [facility]1983 Stop: 03/21/20 09:01 Last Admin: 02/20/20 09:31 Dose: 20 mg Documented by: Glucagon (Glucagen) 1 mg IM 1X PRN PRN Reason: HYPOGLYCEMIA Stop: 03/20/20 18:41 Levofloxacin/Dextrose (Levaquin 500 Mg/100 Ml Ivpb) 500 mg in 100 mls @ 100 mls/hr IV Q24H [facility], [facility]; Protocol Stop: 03/20/20 20:01 Last Admin: 02/19/20 21:28 Dose: 100 mls Documented by: Vancomycin HCl 2 gm/ Sodium (Chloride) 500 mls @ 250 mls/hr IVPB Q18H [facility], [facility] Stop: 03/21/20 15:01 Insulin Human Lispro (Humalog) 15 unit SQ ACHS [facility]1983 Stop: 03/20/20 21:01 Last Admin: 02/20/20 12:29 Dose: 15 unit Documented by: Insulin Human Regular (Novolin -R) 0 unit SQ ACHS [facility], [facility]; Protocol Stop: 03/20/20 21:01 Last Admin: 02/20/20 12:29 Dose: 4 unit Documented by: Morphine Sulfate (Morphine Sulfate) 2 mg IV Q4H PRN PRN Reason: Pain scale 5-7 (Moderate) Stop: 03/20/20 18:19 Last Admin: 02/20/20 12:28 Dose: 2 mg Documented by: Olanzapine (Zyprexa) 10 mg PO BEDTIME [facility] Stop: 03/20/20 21:01 Last Admin: 02/19/20 21:00 Dose: Not Given Documented by: Ondansetron HCl (Zofran) 4 mg IV Q6HP PRN PRN Reason: NAUSEA / VOMITING Stop: 03/20/20 18:15 Pantoprazole Sodium (Protonix Tab) 40 mg PO DAILYAC [facility], [facility] Stop: 03/21/20 06:31 Last Admin: 02/20/20 05:39 Dose: 40 mg Documented by: Pregabalin (Lyrica) 150 mg PO BID ESTRADA Stop: 03/21/20 09:01 Last Admin: 02/20/20 09:30 Dose: 150 mg Documented by: Sodium Chloride (Normal Saline Flush) 10 ml IV BID ESTRADA Stop: 03/20/20 21:01 Last Admin: 02/20/20 09:31 Dose: 10 ml Documented by: Venlafaxine HCl (Effexor Xr) 75 mg PO BEDTIME ESTRADA Stop: 03/20/20 21:01 Last Admin: 02/19/20 21:27 Dose: 75 mg Documented by: Venlafaxine HCl (Effexor Xr) 150 mg PO DAILY ESTRADA Stop: 03/21/20 09:01 Last Admin: 02/20/20 09:31 Dose: 150 mg Documented by: ROS: CV: Denies chest pain RESP: Denies shortness of breath and cough : Denies dysuria GI: Denies nausea, reports chronic diarrhea Skin: Reports erythema and swelling to right lateral foot Objective: Temp Pulse Resp BP Pulse Ox 97.3 F 84 20 136/71 93 02/20/20 12:37 02/20/20 12:37 02/20/20 12:58 02/20/20 12:37 02/20/20 12:58 Labs: Sodium 144, potassium 4.9, BUN 16, creatinine 0.99, albumin 3.0, WBC 6.6, hemoglobin 11.1, hematocrit 33.9 Foot xray 02/18: EXAM DESCRIPTION: RAD - Foot Right 2 View - 02/19/2020 5:07 pm CLINICAL HISTORY: PAIN COMPARISON: Foot Right 3 View dated 02/02/2020; Foot Right 3 View dated 09/11/2019 FINDINGS: Evidence of prior amputation of the distal fifth metatarsal. There is irregular soft tissue thickening in the region. No definitive osteomyelitis by plain radiograph. Prominent arthritic changes are present involving the first metacarpal phalangeal joint. No soft tissue gas. Prominent plantar calcaneal spur. Foot MRI 02/19: EXAM DESCRIPTION: MRIFoot Right Wo Cont02/20/2020 9:12 am CLINICAL HISTORY: Right foot pain COMPARISON: 2019 TECHNIQUE: Axial, sagittal and coronal magnetic resonance imaging of the right foot was obtained. FINDINGS: Fifth phalanx has been resected. Erosion involves the fifth metatarsal head and neck with abnormal signal. Abnormal signal also is present within the distal fifth metatarsal shaft. Edema is present within the adjacent soft tissue. Degenerative changes involve the first MTP joint and adjacent bone. IMPRESSION: Osteomyelitis involving fifth metatarsal ROS: General: Awake, alert, oriented CV: S1,S2 RESP: Good breath sounds Extremities: 2+ pedal pulses, right foot 5th digit amputated Skin: Right lateral foot with DFU, wound bed with slough and large amount of serous drainage. Medial 4th toe with DFU,wound bed with granulation tissue Assessment and plan: DFU to right lateral foot, continue wound care per Dr. Marr order Osteomyelitis to right 5th metatarsal Blood and wound cultures pending Cellulitis to right foot, recommend to keep foot elevated Levaquin and Vancomycin day 2, continue until cultures come back Diabetes mellitus, monitor glycemic control Protein calorie malnourished Patient will need total of 6 weeks of antibiotics Patient would benefit from LTAC facility for hyperbaric treatment, wound management and IV antibiotics Will continue to monitor Thank you for consult Patient discussed with
[2020-02-20] MEDS: VANCOMYCIN 2 GM in NA CHLORIDE 0.9% 500 ML IVPB SCH (16:09)
[2020-02-20] MEDS: Levofloxacin500mg IV 500 MG/100 ML BAG IV SCH (20:24)
[2020-02-20] MEDS: DIVALPROEX DR 500MG TAB PO SCH (20:28)
[2020-02-20] MEDS: OLANZapine 10 MG TABLET PO SCH (20:28)
[2020-02-21] MEDS: PANTOPRAZOLE 40MG TABLET PO SCH (06:36)
[2020-02-21] MEDS: INSULIN -REGULAR HUMAN 50 UNIT/0.5 ML ML SQ SCH ×4 (07:30→20:50)
[2020-02-21] MEDS: ATORVASTATIN 20 MG TAB PO SCH (08:24)
[2020-02-21] MEDS: FUROSEMIDE 20 MG TABLET PO SCH (08:24)
[2020-02-21] MEDS: HYDROCODONE/APAP 7.5/325 MG TAB PO PRN ×2 (08:25→17:21)
[2020-02-21] MEDS: BUPROPION HCL XL 150 MG TAB PO SCH (08:25)
[2020-02-21] MEDS: PREGABALIN 150 MG CAP PO SCH ×2 (08:25→20:50)
[2020-02-21] MEDS: INSULIN LISPRO 100 UNIT/1 ML SQ SCH ×4 (08:26→20:50)
[2020-02-21] MEDS: VANCOMYCIN 2 GM in NA CHLORIDE 0.9% 500 ML IVPB SCH (08:26)
[2020-02-21] MEDS: VENLAFAXINE HCL XR 75 MG CAP PO SCH (08:26)
[2020-02-21] MEDS: MORPHINE 2 MG/ML SYR IV PRN (12:37)
--- NOTE | 2020-02-21 14:32 | P.PN ---
Subjective Date of Service: 02/21/20 Primary Care Provider: unknown Chief Complaint: Right foot pain Subjective: Improving, Doing well Physical Examination - Vital Signs Temperature: 96.9 F Blood Pressure: 137/63 Pulse: 87 Respirations: 20 Pulse Ox (%): 93 - Physical Exam General: Alert, In no apparent distress, Oriented x3, Cooperative HEENT: Atraumatic Neck: Supple Respiratory: Clear to auscultation bilaterally, Normal air movement Cardiovascular: Normal pulses, Regular rate/rhythm Gastrointestinal: Normal bowel sounds, Soft and benign, Non-distended Integumentary: Other (Right foot bandaged) - Studies Medications List Reviewed: Yes Assessment & Plan Discharge Plan: Home Plan to discharge in: 48 Hours Physician Review Additional Text: Impression: Right metatarsal head/neck osteomyelitis Diabetes mellitus type 2 insulin-dependent Hypertension Hyperlipidemia Depression with anxiety/bipolar disorder History of DVT on chronic anti coagulation therapy Plan: Right metatarsal head/neck osteomyelitis: PICC line has been order. Continue with IV Levaquin 500 mg daily and IV vancomycin 2 g every 18 hr. Pharmacy to monitor and adjust. Will need to make arrangements for social service to continue medications for 6 weeks at home. Will need to verify with PCP to monitor lab closely. Will consult social worker aide to help in this. Anticipate discharge on Sunday Diabetes mellitus type 2 insulin-dependent: Continue metformin. Continue sliding scale. Will monitor closely Hypertension: Continue medication Hyperlipidemia: Continue medication Depression with anxiety/bipolar disorder: Continue medication History of DVT on chronic anti coalition therapy: Continue Eliquis Time Spent Managing Pts Care (In Minutes): 55
[2020-02-21] MEDS: METFORMIN ER 500 MG TAB PO SCH (20:49)
[2020-02-21] MEDS: Levofloxacin500mg IV 500 MG/100 ML BAG IV SCH (20:49)
[2020-02-21] MEDS: DIVALPROEX ER 250 MG TAB PO SCH (20:49)
[2020-02-21] MEDS: ATORVASTATIN 40 MG TAB PO SCH (20:50)
[2020-02-21] MEDS ORDERED: HOME MED 1 EA UNK (Divalproex Sodium [Depakote Er] 1,500 MG) PO SCH (21:00)
[2020-02-22] MEDS: VANCOMYCIN 2 GM in NA CHLORIDE 0.9% 500 ML IVPB SCH ×2 (02:19→22:04)
[2020-02-22] MEDS: INSULIN -REGULAR HUMAN 50 UNIT/0.5 ML ML SQ SCH ×4 (07:30→22:04)
[2020-02-22 08:40] LABS: Absolute Lymphocytes (CBC) 1.2 K/uL (0.7-4.9); Basophils % 0.5 % (0-1.3); Hematocrit 34.4 % (36.0-45.0); Lymphocytes % 21.9 % (15.3-44.8); MPV 8.9 fL (7.6-11.3); RBC Red Blood Cell Count 4.21 M/uL (3.86-4.86)
[2020-02-22] MEDS: METFORMIN ER 500 MG TAB PO SCH ×2 (08:42→22:03)
[2020-02-22] MEDS: BUPROPION HCL XL 150 MG TAB PO SCH (08:42)
[2020-02-22] MEDS: VENLAFAXINE HCL XR 75 MG CAP PO SCH (08:43)
[2020-02-22] MEDS: PREGABALIN 150 MG CAP PO SCH ×2 (08:43→22:04)
[2020-02-22] MEDS: PANTOPRAZOLE 40MG TABLET PO SCH (08:43)
[2020-02-22] MEDS: OLANZapine 10 MG TABLET PO SCH (08:43)
[2020-02-22] MEDS: INSULIN LISPRO 100 UNIT/1 ML SQ SCH ×4 (08:44→22:05)
[2020-02-22] MEDS: APIXABAN 5 MG TABLET PO SCH (08:44)
[2020-02-22] MEDS: FUROSEMIDE 20 MG TABLET PO SCH (08:44)
[2020-02-22 08:52] LABS: Potassium 4.5 mmol/L (3.5-5.1)
[2020-02-22] MEDS ORDERED: VENLAFAXINE HCL PO SCH (09:00)
[2020-02-22] MEDS ORDERED: OLANZAPINE PO SCH (09:00)
[2020-02-22] MEDS ORDERED: HOME MED 1 EA UNK (Omeprazole [Omeprazole] 1 CAP) PO SCH (09:00)
[2020-02-22 09:45] VITALS: O2SAT 96
[2020-02-22] MEDS: HYDROCODONE/APAP 7.5/325 MG TAB PO PRN (11:56)
--- NOTE | 2020-02-22 12:35 | P.PN ---
Subjective Date of Service: 02/22/20 Primary Care Provider: unknown Chief Complaint: Right foot pain Subjective: Doing well Physical Examination - Vital Signs Temperature: 97.4 F Blood Pressure: 142/98 Pulse: 74 Respirations: 18 Pulse Ox (%): 95 - Physical Exam General: Alert HEENT: Atraumatic Neck: Supple Respiratory: Clear to auscultation bilaterally, Normal air movement Cardiovascular: Normal pulses, Regular rate/rhythm Neurological: Normal speech, Normal strength at 5/5 x4 extr, Normal tone, Normal affect - Studies Medications List Reviewed: Yes Assessment & Plan Discharge Plan: Home Plan to discharge in: 24 Hours Physician Review Additional Text: Impression: Right metatarsal head/neck osteomyelitis Diabetes mellitus type 2 insulin-dependent Hypertension Hyperlipidemia Depression with anxiety/bipolar disorder History of DVT on chronic anti coagulation therapy Plan: Right metatarsal head/neck osteomyelitis: PICC line has been order. Continue with IV Levaquin 500 mg daily and IV vancomycin 2 g every 18 hr. Pharmacy to monitor and adjust. Will need to make arrangements for social service to continue antibiotics for total of 6 weeks at home. Will need to verify with PCP to monitor lab closely. Patient will need bi weekly CBC/BMP and Vancomycin trough level prior to 4th vancomycin dose. Will consult director of social work to help in this. If PCP not willing to help with then will need to consider consulting Dr. Chavez to help with this process. Anticipate discharge on Sunday if arrangements can be made. Will turn the service over to the hospital team tomorrow. I will go over the plan of care with him. Diabetes mellitus type 2 insulin-dependent: Continue metformin. Continue sliding scale. Will monitor closely Hypertension: Will start Norvasc 2.5 mg daily. Hyperlipidemia: Continue medication Depression with anxiety/bipolar disorder: Continue medication History of DVT on chronic anti coagulation therapy: Continue Eliquis Time Spent Managing Pts Care (In Minutes): 55
[2020-02-22] MEDS: LOPERAMIDE HCL 2 MG CAPSULE PO SCH ×2 (14:30→22:03)
[2020-02-22] MEDS: LACTOBACILLUS/ACIDOPHILUS TAB PO SCH ×2 (14:31→22:03)
--- NOTE | 2020-02-22 21:09 | RAD REPORT ---
EXAM DESCRIPTION: RAD - Chest Single View - 02/22/2020 8:58 pm CLINICAL HISTORY: Device placement PICC line placement . IMPRESSION: PICC line with its tip in the mid superior vena cava
[2020-02-22] MEDS: DIVALPROEX ER 250 MG TAB PO SCH (22:03)
[2020-02-22] MEDS: ATORVASTATIN 40 MG TAB PO SCH (22:03)
[2020-02-22] MEDS: Levofloxacin500mg IV 500 MG/100 ML BAG IV SCH (22:04)
[2020-02-23] MEDS ORDERED: SODIUM CHLORIDE 0.9% 10ML INJ IV PRN ×2 (06:00)
[2020-02-23] MEDS ORDERED: LIDOCAINE 1% MPF 5 ML VIAL IM PRN (06:00)
[2020-02-23] MEDS: INSULIN -REGULAR HUMAN 50 UNIT/0.5 ML ML SQ SCH ×2 (07:30→11:30)
--- NOTE | 2020-02-23 08:43 | P.PN ---
Date of Service: 02/23/20 Subjective: Patient is a 54 year old female who presents with worsening erythema and swelling to right lateral foot. Patient had right foot 5th toe amputation in May 2019 and then developed an ulcer to right lateral foot in June 2020. Patient has been following up with Dr. Moe in the wound healing center. MRI shows osteomyelitis to right foot 5th metatarsal which I have been consulted for. Patient examined at bedside. Reports diarrhea over the weekend that has improved. Denies nausea and fever. Patient to be discharged home with IV antibiotics for total of 6 weeks. Objective: Temp Pulse Resp BP Pulse Ox 97.7 F 78 18 145/84 H 95 02/23/20 04:00 02/23/20 04:10 02/23/20 04:10 02/23/20 04:10 02/23/20 04:10 Labs: Sodium 142, potassium 4.5, BUN 11, creatinine 0.94, albumin 3.0, WBC 5.6, hemoglobin 11.3, hematocrit 34.4 Foot xray 02/18: EXAM DESCRIPTION: RAD - Foot Right 2 View - 02/19/2020 5:07 pm CLINICAL HISTORY: PAIN COMPARISON: Foot Right 3 View dated 02/02/2020; Foot Right 3 View dated 09/11/2019 FINDINGS: Evidence of prior amputation of the distal fifth metatarsal. There is irregular soft tissue thickening in the region. No definitive osteomyelitis by plain radiograph. Prominent arthritic changes are present involving the first metacarpal phalangeal joint. No soft tissue gas. Prominent plantar calcaneal spur. Foot MRI 02/19: EXAM DESCRIPTION: MRIFoot Right Wo Cont02/20/2020 9:12 am CLINICAL HISTORY: Right foot pain COMPARISON: 2019 TECHNIQUE: Axial, sagittal and coronal magnetic resonance imaging of the right foot was obtained. FINDINGS: Fifth phalanx has been resected. Erosion involves the fifth metatarsal head and neck with abnormal signal. Abnormal signal also is present within the distal fifth metatarsal shaft. Edema is present within the adjacent soft tissue. Degenerative changes involve the first MTP joint and adjacent bone. IMPRESSION: Osteomyelitis involving fifth metatarsal ROS: General: Awake, alert, oriented CV: S1,S2 RESP: Good breath sounds Extremities: 2+ pedal pulses, right foot 5th digit amputated Skin: Right lateral foot with DFU, callus formation. Medial 4th toe with DFU,wound bed with granulation tissue Assessment and plan: DFU to right lateral foot, continue wound care per Dr. Marr order Osteomyelitis to right 5th metatarsal Blood Cultures negative Wound cultures show gram positive cocci in PRS and CHS and Gram positive rods Cellulitis to right foot, recommend to keep foot elevated Levaquin and Vancomycin day 5, recommend to continue for total of 6 weeks Diabetes mellitus, monitor glycemic control Patient will need CBC, CMP and vancomycin trough monitored throughout antibiotic therapy Protein calorie malnourished Will continue to monitor Patient discussed with
[2020-02-23] MEDS ORDERED: AMLODIPINE 2.5 MG TAB PO SCH (09:00)
[2020-02-23] MEDS ORDERED: SODIUM CHLORIDE 0.9% 10ML INJ IV SCH (09:00)
[2020-02-23] MEDS: INSULIN LISPRO 100 UNIT/1 ML SQ SCH ×3 (09:00→16:34)
[2020-02-23] MEDS: PANTOPRAZOLE 40MG TABLET PO SCH (09:01)
[2020-02-23] MEDS: LACTOBACILLUS/ACIDOPHILUS TAB PO SCH ×2 (09:19→14:08)
[2020-02-23] MEDS: PREGABALIN 150 MG CAP PO SCH (09:19)
[2020-02-23] MEDS: BUPROPION HCL XL 150 MG TAB PO SCH (09:19)
[2020-02-23] MEDS: APIXABAN 5 MG TABLET PO SCH (09:20)
[2020-02-23] MEDS: LOPERAMIDE HCL 2 MG CAPSULE PO SCH (09:20)
[2020-02-23] MEDS: METFORMIN ER 500 MG TAB PO SCH (09:20)
[2020-02-23] MEDS: OLANZapine 10 MG TABLET PO SCH (09:21)
[2020-02-23] MEDS: FUROSEMIDE 20 MG TABLET PO SCH (09:22)
[2020-02-23] MEDS: VENLAFAXINE HCL XR 75 MG CAP PO SCH (09:24)
[2020-02-23] MEDS ORDERED: INSULIN -REGULAR HUMAN 50 UNIT/0.5 ML ML SQ SCH ×2 (12:18→21:00)
--- NOTE | 2020-02-23 12:59 | P.DS ---
Admission Date: 02/19/20 Discharge Date: 02/23/20 Primary Care Provider: unknown Disposition: [facility] HOME/HOME HEALTH CARE Discharge Condition: GOOD Reason for Admission: Right foot pain - Problems (1) Foot osteomyelitis, right Current Visit: Yes Status: Acute (2) Diabetes mellitus type II, non insulin dependent Onset Date: 02/14/16 Current Visit: No Status: Chronic Hospital Course: Patient is a 54-year-old female with a past medical history of hypertension, [id number] type 2 diabetes and a history of DVT on chronic systemic anticoagulation. She was admitted to the hospital with a right 5th metatarsal osteomyelitis, which was managed with antibiotics. Superficial swab revealed polymicrobial infection. Patient did well throughout her entire hospitalization. She will be discharged on a 6 week course off vancomycin and levofloxacin. Arrangement with PCP has been made for by a weekly CBC/BMP and vanc trough before 4th dose. Vital Signs/Physical Exam: Temp Pulse Resp BP Pulse Ox 97.2 F 71 18 140/80 93 02/23/20 08:00 02/23/20 09:23 02/23/20 08:00 02/23/20 09:23 02/23/20 08:00 General: Alert, In no apparent distress, Cooperative HEENT: Atraumatic, Normocephalic, EOMI Neck: Supple Respiratory: Clear to auscultation bilaterally, Normal air movement Cardiovascular: No edema, Normal pulses, Regular rate/rhythm, Normal S1 S2 Musculoskeletal: Other (Right foot are wrapped. Site clean and dry.) Neurological: Normal speech, Normal strength at 5/5 x4 extr, Normal affect Laboratory Data at Discharge: WBC 5.6 K/uL (4.3-10.9) D 02/22/20 08:21 Hgb 11.3 g/dL (12.0-15.0) L 02/22/20 08:21 Hct 34.4 % (36.0-45.0) L 02/22/20 08:21 Plt Count 163 K/uL (152-406) 02/22/20 08:21 Sodium 142 mmol/L (136-145) 02/22/20 08:21 Potassium 4.5 mmol/L (3.5-5.1) 02/22/20 08:21 BUN 11 mg/dL (7-18) 02/22/20 08:21 Creatinine 0.94 mg/dL (0.55-1.3) 02/22/20 08:21 Glucose 195 mg/dL (74-106) H 02/22/20 08:21 Phosphorus 4.7 mg/dL (2.5-4.9) 02/20/20 05:12 Magnesium 2.0 mg/dL (1.8-2.4) 02/22/20 08:21 Total Bilirubin 0.2 mg/dL (0.2-1.0) 02/20/20 05:12 AST 22 U/L (15-37) 02/20/20 05:12 ALT 27 U/L (12-78) 02/20/20 05:12 Alkaline Phosphatase 82 U/L (45-117) 02/20/20 05:12 Home Medications: Apixaban [Eliquis] 5 mg PO DAILY 02/19/20 Atorvastatin Calcium [Lipitor] 40 mg PO BEDTIME 02/19/20 Bupropion *Xl* [Wellbutrin XL*] 1 tab PO DAILY 02/19/20 Divalproex Sodium [Depakote ER] 1,500 mg PO BEDTIME 02/19/20 Furosemide [Lasix] 20 mg PO DAILY 02/19/20 Insulin Degludec [Tresiba Flextouch U-200] 100 units SQ DAILY 02/19/20 Insulin Lispro [Humalog Kwikpen U-100] 15 units SQ TID 02/19/20 Metformin HCl [Metformin HCl ER] 1 tab PO BEDTIME 02/19/20 Metformin HCl [Metformin HCl ER] 500 mg PO DAILY 02/19/20 OLANZapine [Zyprexa*] 1 tab PO BEDTIME 02/19/20 Olanzapine [Zyprexa] 1 tab PO DAILY 02/19/20 Omeprazole 1 cap PO DAILY 02/19/20 Pregabalin [Lyrica] 150 mg PO TID 02/19/20 Venlafaxine HCl [Venlafaxine HCl ER] 1 cap PO DAILY 02/19/20 Amlodipine [Norvasc*] 2.5 mg PO DAILY #30 tab 02/23/20 Atorvastatin Calcium [Lipitor] 40 mg PO BEDTIME tab 02/23/20 Bupropion *Xl* [Wellbutrin XL*] 150 mg PO DAILY tab 02/23/20 Pregabalin [Lyrica] 150 mg PO BID cap 02/23/20 New Medications: Amlodipine [Norvasc*] 2.5 mg PO DAILY #30 tab Followup: Lenny Drew MD [ACTIVE - CAN ADMIT] - Wei Moe JR, DPM [ASSOCIATE-ACTIVE - CAN ADMIT] -
[2020-02-23 13:08] VITALS: BP 148/91; TEMP 96.8
[2020-02-23] MEDS: VANCOMYCIN 2 GM in NA CHLORIDE 0.9% 500 ML IVPB SCH (14:02)
[2020-02-23] MEDS: Levofloxacin500mg IV 500 MG/100 ML BAG IV SCH (14:03)
[2020-02-24 13:52] LABS: C.diff Antigen/Toxin Ag neg : Tox neg (NEG : NEG)
== END 2020-02-23 17:20 | disposition home health service (06) | DRG 638 ==
LOC: ER 15:27 → ERHOLD 18:16 → 2ND 20:14
PROVIDERS: ADMIT Family Medicine; ATTEND Internal Medicine
PROC: 02HV33Z Insertion of Infusion Device into Superior Vena Cava, Percutaneous Approach (ICD-10-PCS; principal; 2020-02-22)
DX: E11.69 Type 2 diabetes mellitus with other specified complication (principal); L03.115 Cellulitis of right lower limb; M86.8X7 Other osteomyelitis, ankle and foot; E46 Unspecified protein-calorie malnutrition; E11.628 Type 2 diabetes mellitus with other skin complications; E78.5 Hyperlipidemia, unspecified; E11.621 Type 2 diabetes mellitus with foot ulcer; Z86.718 Personal history of other venous thrombosis and embolism; Z88.1 Allergy status to other antibiotic agents; Z88.5 Allergy status to narcotic agent; Z88.0 Allergy status to penicillin; Z88.8 Allergy status to other drugs, medicaments and biological substances; Z79.01 Long term (current) use of anticoagulants; Z79.4 Long term (current) use of insulin; Z79.899 Other long term (current) drug therapy; Z86.711 Personal history of pulmonary embolism; Z90.710 Acquired absence of both cervix and uterus; Z90.49 Acquired absence of other specified parts of digestive tract; E66.9 Obesity, unspecified; Z68.39 Body mass index [BMI] 39.0-39.9, adult; F31.9 Bipolar disorder, unspecified; I25.10 Atherosclerotic heart disease of native coronary artery without angina pectoris; I12.9 Hypertensive chronic kidney disease with stage 1 through stage 4 chronic kidney disease, or unspecified chronic kidney disease; N18.3 Chronic kidney disease, stage 3 (moderate); E11.22 Type 2 diabetes mellitus with diabetic chronic kidney disease; K21.9 Gastro-esophageal reflux disease without esophagitis; L97.519 Non-pressure chronic ulcer of other part of right foot with unspecified severity; Z11.59 Encounter for screening for other viral diseases; F17.210 Nicotine dependence, cigarettes, uncomplicated; Z89.421 Acquired absence of other right toe(s); F41.8 Other specified anxiety disorders
CPT/HCPCS: 36415; 36569; 71045; 80048; 80053; 80202; 81003; 82947; 83735; 84100; 85025; 87040; 87045; 87046; 87070; 87205; 87324; 87449; 96365; 96375; 99285; J0696; J1815; J2270; J2405; J3370; J7040; J7050

== ENCOUNTER 2020-05-03 06:28 | Emergency (ER) | payer OTHER ==
--- OUTSIDE RECORDS SUMMARY | 2020-05-03 06:31 | XMS REPORT | Continuity of Care Document ---
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 Nicotine 11/12/2018 MH dependence, [facility] [facility] cigarettes, uncomplicated DYSPHAGIA, Active MH UNSPECIFIED [facility] [facility] GASTRO-ESOPHAGEAL Active MH REFLUX DISEASE [facility] WITHOUT DIAPHRAGMATIC Active MH HERNIA WITHOUT [facility] OBSTRUCTION Medications Medication Details Route Status Patient Ordering Order Source Instructions Provider Date Oxycodone 5 mg, 5 mL, Inactive Hydrochloride 1 Route: PO, 2017 [place] [facility] MG/ML Oral ONCE, Dosing Solution Weight 113.636, kg, Start date: 04/25/18 12:47:00 CDT, Stop date: 04/25/18 12:47:00 CDT Labetalol 10 mg, Route: Inactive IVP, Q5Min, 2017 [facility] Dosing Weight 113.636, kg, PRN Elevated BP, Start date: 04/25/18 11:19:00 CDT, Duration: 5 doses or times, Stop date: Limited # of times Hydralazine 10 mg, Route: Inactive IVP, Q20Min, 2017 [facility] Dosing Weight 113.636, kg, PRN Elevated BP, Start date: 04/25/18 11:19:00 CDT, Duration: 2 doses or times, Stop date: Limited # of times Oxycodone 5 mg, Route: Inactive PO, Drug form: 2017 [facility] TAB, Q4H, Dosing Weight 113.636, kg, PRN Pain Score 4-6, Start date: 04/25/18 11:19:00 CDT, Duration: 30 day, Stop date: 05/25/18 11:18:00 CDT Diphenhydramine 12.5 mg, Route: Inactive IVP, Drug form: 2017 [facility] INJ, Q6H, Dosing Weight 113.636, kg, PRN Itching, Start date: 04/25/18 11:19:00 CDT, Duration: 30 day, Stop date: 05/25/18 11:18:00 CDT Naloxone 0.1 mg, Route: Inactive SUB-Q, Q6H, 2017 [facility] Dosing Weight 113.636, kg, PRN Itching, Start date: 04/25/18 11:19:00 CDT, Duration: 30 day, Stop date: 05/25/18 11:18:00 CDT Albuterol 0.83 2.49 mg, Route: Inactive MG/ML Inhalant NEB, Q20Min, 2018 [facility] Dosing Weight 113.636, kg, PRN Wheezing, Priority: STAT, Start date: 04/25/18 11:19:00 CDT, Duration: 30 day, Stop date: 05/25/18 11:18:00 CDT Hydromorphone 0.5 mg, Route: Inactive IVP, Q5Min, 2017 [facility] Dosing Weight 113.636, kg, PRN Pain Score 7-10, Start date: 04/25/18 11:19:00 CDT, Duration: 4 doses or times, Stop date: Limited # of times Meperidine 12.5 mg, Route: Inactive IVP, Q30Min, 2017 [facility] Dosing Weight 113.636, kg, PRN Other -See Comment, For shivering, Start date: 04/25/18 11:19:00 CDT, Duration: 2 doses or times, Stop date: Limited # of times Fentanyl 25 microgram, Inactive Route: IVP, 2017 [facility] Q5Min, Dosing Weight 113.636, kg, PRN Pain Score 4-6, Priority: Routine, Start date: 04/25/18 11:19:00 CDT, Duration: 4 doses or times, Stop date: Limited # of times Flumazenil 0.2 mg, Route: Inactive IVP, PRN, 2017 [facility] Dosing Weight 113.636, kg, PRN Benzodiazepine [...] 6.25 mg, Route: Inactive IVPB, ONCE, 2017 [facility] Dosing Weight 113.636, kg, PRN Nausea & Vomiting, Start date: 04/25/18 11:19:00 CDT Ondansetron 4 mg, Route: Inactive 04/25/ IVP, ONCE, 2017 [facility] Dosing Weight 113.636, kg, PRN Nausea [...] IV, Inactive Injection IV Total Volume: 2017 [facility] (ANES) 1000 mL 1,000, Start date: 04/25/18 8:49:00 CDT, Stop date: 04/25/18 9:49:00 CDT heparin sodium, Route: SUB-Q, Inactive H porcine 2500 Drug form: INJ, 2018 [facility] UNT/ML Injectable ONCALL, Dosing Solution Weight 113.636, kg, Start date: 04/25/18 8:00:00 CDT, Duration: 30 day, Stop date: 05/25/18 7:59:00 CDT Insulin regular 4 unit, Route: Inactive IV, ONCE, 2017 [facility] Dosing Weight 113.636, kg, Start date: [...] Oral Tablet PO, QPM, # 30 2018 [facility] ast [Xarelto] tab, 3 Refill(s) Fenofibrate 145 145 mg = 1 tab, Active MG Oral Tablet PO, Bedtime, 0 2018 [facility] Refill(s) OLANZapine 10 mg 10 mg = 1 tab, Active oral tablet PO, QPM, 0 2018 Refill(s) 24 HR Divalproex 3 tabs, PO, Active Sodium 500 MG Bedtime, 0 [address] [facility] [address] Extended Release Refill(s) Tablet [Depakote] pantoprazole 40 40 mg = 1 tab, Active 04/19/ H mg oral enteric PO, BID, 0 2018 [facility] east coated tablet Refill(s) pregabalin 150 MG 150 mg = 1 cap, Active Oral Capsule PO, QAM, 0 2018 [facility] t [Lyrica] Refill(s) venlafaxine 150 150 mg = 1 tab, Active mg oral tablet, PO, QAM, # 30 2018 [facility] extended release tab, 0 Refill(s) olanzapine 5 MG 5 mg = 1 tab, Active Oral Tablet PO, QAM, 0 2018 Refill(s) pioglitazone 30 30 mg = 1 tab, Active 04/19/ M H mg oral tablet PO, QAM, 0 2018 [facility] Refill[facility]s) Alprazolam 1 MG 1 mg [...] BANK ABO/Rh B POS 04/19 RESULTS /2017 [facility] BLOOD BANK Antibody Negative 04/19 RESULTS Scrn (04/19/18 3:18 PM) [facility] ast CHEM PANEL eGFR 56 04/19 Result Comment: The [facility] eGFR is calculated using the CKD-EPI [...] PANEL AST 21 0 - 37 04/19 [facility] CHEM PANEL Albumin Lvl 3.2 3.5 - 5.0 04/19 [facility] CHEM PANEL ALT 25 0 - 65 04/19 [facility] CHEM PANEL Alk Phos 65 39 - 136 04/19 [facility] CHEM PANEL Bili Total 0.2 0.2 - 1.3 04/19 [facility] CHEM PANEL Calcium Lvl 9.0 8.5 - 10.5 04/19 [facility] CHEM PANEL Total 6.7 6.4 - 8.4 04/19 Protein [facility] CHEM PANEL Glucose Lvl 288 70 - 99 04/19 [facility] CHEM PANEL BUN 18 7 - 22 04/19 [facility] CHEM PANEL Creatinine 1.13 0.50 - 04/19 MH Lvl 1.40 /2017 [facility] CHEM PANEL Sodium Lvl 143 135 - 145 04/19 [facility] CHEM PANEL Chloride Lvl 105 95 - 109 04/19 [facility] CHEM PANEL CO2 27 24 - 32 09 /2017 [facility] CHEM PANEL Potassium 4.5 3.5 - 5.1 04/19 Lvl /2017 [facility] CHEM PANEL AGAP 15.5 10.0 - 04/19 20.0 /2017 [facility] CHEM PANEL B/C Ratio 16 6 - 25 04/19 [facility] CHEM PANEL Globulin 3.5 2.7 - 4.2 04/19 [facility] CHEM PANEL A/G Ratio 0.9 0.7 - 1.6 04/19 /2017 [facility] HEMATOLOGY PTT 25.8 22.9 - 04/19 MH 35.8 /2017 [facility] HEMATOLOGY PT 14.0 12.0 - 04/19 MH 14.7 /2017 [facility] HEMATOLOGY INR 1.08 0.85 - 04/19 MH 1.17 /2017 [facility] HEMATOLOGY Platelet 162 133 - 450 04/19 [facility] HEMATOLOGY MPV 8.7 7.4 - 10.4 04/19 /2017 [facility] HEMATOLOGY MCH 29.7 27.0 - 04/19 MH 31.0 /2017 [facility] HEMATOLOGY RDW 15.0 11.5 - 04/19 14.5 /2017 [facility] HEMATOLOGY MCHC 33.1 32.0 - 04/19 MH 36.0 /2017 [facility] HEMATOLOGY MCV 89.8 80.0 - 04/19 98.0 /2017 [facility] HEMATOLOGY Hct 39.1 36.0 - 04/19 48.0 /2017 [facility] HEMATOLOGY WBC 6.0 3.7 - 10.4 04/19 /2017 [facility] HEMATOLOGY Hgb 12.9 12.0 - 04/19 MH 16.0 /2017 [facility] HEMATOLOGY RBC 4.35 4.20 - 04/19 MH 5.40 /2017 [facility] HEMATOLOGY Eosinophils 0.1 0.0 - 0.5 04/19 MH # /2018 [facility] HEMATOLOGY Neutrophils 3.5 1.5 - 8.1 04/19 MH # /2017 [facility] HEMATOLOGY Monocytes # 0.4 0.0 - 0.8 04/19 [facility] HEMATOLOGY Basophils 0.3 0.0 - 1.0 04/19 [facility] HEMATOLOGY Lymphocytes 1.9 1.0 - 5.5 04/19 MH # /2017 [facility] HEMATOLOGY Eosinophils 2.3 0.0 - 4.0 04/19 /2017 [facility] HEMATOLOGY Monocytes 7.4 2.0 - 12.0 04/19 [facility] HEMATOLOGY Lymphocytes 31.6 20.0 - 04/19 MH 40.0 [facility] HEMATOLOGY Segs 58.4 45.0 - 04/19 75.0 /2017 [facility] SPECIAL Hgb A1C 10.3 <=5.6 % 04/19 CHEMISTRY /2017 [facility] URINE AND UA <=1.0 0.1 - 1.0 04/19 STOOL Urobilinogen mg/dL [facility] URINE AND UA Nitrite Negative Negative 04/19 STOOL (04/19/18 3:18 PM) /2017 [facility] URINE AND UA Leuk Est Negative Negative 04/19 STOOL (04/19/18 3:18 PM) [facility] Sq Epi Few /LPF Few /LPF 04/19 STOOL [facility] URINE AND UA WBC 1 0 - 5 04/19 [facility]OOL [facility] URINE AND UA Blood Negative Negative 04/19 STOOL (04/19/18 3:18 PM) /2017 [facility] URINE AND UA RBC 5 0 - 2 04/19 STOOL [facility] URINE AND UA pH 5.0 5.0 - 8.0 04/19 STOOL /2017 [facility] URINE AND UA Spec Grav 1.025 <=1.030 04/19 STOOL [facility] URINE AND UA Protein Negative Negative 04/19 STOOL mg/dL mg/dL [facility] URINE AND UA Ketones Trace Negative 04/19 [facility] mg/dL mg/dL [facility] URINE AND UA Glucose 500 mg/dL Negative 04/19 STOOL mg/dL [facility] URINE AND UA Turbidity Slight Clear 04/19 STOOL *ABN* /2017 [facility] (04/19/18 3:18 PM) URINE AND UA Color Yellow Yellow 04/19 STOOL *NA* /2017 [facility] (04/19/18 3:18 PM) URINE AND UA Bili Negative Negative 04/19 STOOL *NA* /2017 [facility] (04/19/18 3:18 PM) BLOOD BANK RBC product Product available 04/19 RESULTS (04/19/18 3:00 PM) [facility] Pathology Reports No Data Provided for This Section Diagnostic Reports Report Value Date Source Barium Swallow w Barium Swallow w Esophagus Function DX 05/30/20 [facility] Esophagus Function DX COMPARISON: None CLINICAL [...] from the stomach into proximal small bowel. [id number] Chest 2 views DX Patient Name: MANJINDER DODSON 04/19/2018 [facility] : 1965; Age: 52 years Female MR: [id number] Study: Chest 2 views DX Order Time: [...] Recommend CT chest for further characterization. SL: [id number] Barium Swallow w Fluoro Time and Dose: 6.1min/369.66mGy air kerm a 04/17/2018 [facility] Esophagus Function DX Barium Swallow w [...] visualized at the GE junc tion. SL: [id number] Consultation Notes No Data Provided for This [...] 04/25/[address] Respitory Rate 16 04/25/2018 [facility] Respitory Rate 16 04/25/2018 [facility] Respitory Rate 11 04/25/2018 [facility] Heart Rate 73 04/25/2018 [facility] Respitory Rate 16 04/23/2018 [facility] Systolic (mm Hg) 139 04/23/2018 [facility] Diastolic (mm Hg) 86 04/23/[address] Respitory Rate 17 04/23/2018 [facility] Systolic (mm Hg) 128 04/23/2018 [facility] Diastolic (mm Hg) 76 04/23/[address] Respitory Rate 18 04/23/2018 [facility] Systolic (mm Hg) 117 04/23/2018 [facility] Diastolic (mm Hg) 68 04/23/[address] [facility] [address] Weight 113.636 04/23/2018 [facility] BMI Calculated 34.94 04/23/2018 [facility] Height 180.34 cm 04/23/2018 [facility] Temperature Oral (F) 97.8 F 04/19/2018 [facility] Heart Rate 86 04/19/2018 [facility] BMI Calculated 34.66 04/19/2018 [facility] Weight 112.727 04/19/2018 [facility] Height 180.34 cm 04/19/2018 [facility] Encounters Location Location Encounter Encounter Reason Attending ADM RI Stat Source Details Type Number For Provider Date Date Visit [place] [facility] [id number] [facility] 04/17 04/18 [facility] Bed[facility] [id number] [facility] 04/23 04/23 [facility] Inpatient [id number] [facility] 04/25 04/25 [facility] Outpatient [id number] [facility] 05/30 05/31 [facility] Procedures Procedure Code Date Perfomer Comments Source Amputation [id number] [facility] Colonoscopy [id number] [facility] Esophagogastroduodenoscopy [id number] [facility] Hysterectomy [id number] [facility] Resection [id number] [facility] Assessment and Plan Assessment and Plan Date Source Extracted from:Title: Clinical Document 04/25/2018 [facility] Author: Meseret Abbott MD Date: 04/25/18 PATIENT NAME: MARILEE DODSON DATE OF OPERATION/PROCEDURE: 04/25/2018 PREOPERATIVE DIAGNOSIS: 1. Achalasia 2. Regurgitation and dyspahgia POSTOPERATIVE DIAGNOSIS: 1. Achalasia 2. Regurgitation and dyspahgia SURGEON: Meseret Abbott M.D. [employer] COACH: [facility] [employer] PROCEDURES PERFORMED: 1. Laparoscopic [...] History Date Source Social History TypeResponse 04/25/2018 [facility] Smoking Status Current every day smoker; [...]
--- OUTSIDE RECORDS SUMMARY | 2020-05-03 06:33 | XMS REPORT ---
:1965 Author Organization [facility] Address [address] [place] [address] Care Team Providers Name Role Phone Navneet Call Unavailable [phone] PROBLEMS Type Condition ICD9-CM [id number] Onset Condition SNOMED Code Notes Code Code Dates Status Problem Arthritis of M17.12 Active 6315785496472322 knee, left Problem Acute pain of M25.561 Active 11556393 right knee Problem Primary M17.11 Active 237904749845476 osteoarthritis of right knee Problem Primary M17.12 Active 738314215378100 osteoarthritis of left knee Problem Arthritis of M17.11 Active 7730073286807297 knee, right ALLERGIES Allergen (clinical drug Drug/Non Drug Allergy Reaction Allergy Type Onset Date Status ingredient) documented on EMR amoxicillin Amoxicillin([facility] Unknown Drug Allergy Active Code:[address]-25) penicillin Unknown Drug Allergy Active ENCOUNTERS from 1965 to 2020-04-20 Encounter Location Date Provider Diagnosis [facility] [address] [place], Navneet Callnavdeep gorman oste[facility] [address] of right kne e M17.11 ; [place], [place] Pain in joint o f right [id number] knee M25.561 an d Closed displaced longi tudinal fracture of rig ht patella with no nunion, subsequent enco unter S82.021K IMMUNIZATIONS Vaccine Route Administration Date Status Hyalgan 20 mg Unknown January 08, 2020 Administered Hyalgan 20 mg Unknown January 21, 2020 Administered Hyalgan 20 mg Unknown January 27, 2020 Administered Hyalgan 20 mg Unknown January 20, 2019 Administered Hyalgan 20 mg Unknown January 30, 2019 Administered Hyalgan 20 mg Unknown January 30, 2019 Administered Hyalgan 20 mg Unknown May 13, 2018 Administered Hyalgan 20 mg Unknown January 20, 2019 Administered Hyalgan 20 mg Unknown January 14, 2019 Administered Hyalgan 20 mg Unknown January 14, 2019 Administered Hyalgan 20 mg Unknown May 27, 2018 Administered Hyalgan 20 mg Unknown May 27, 2018 Administered Hyalgan 20 mg Unknown May 21, 2018 Administered Hyalgan 20 mg Unknown May 21, 2018 Administered Hyalgan 20 mg Unknown May 13, 2018 Administered SOCIAL HISTORY Tobacco Use: Social History Observation Description Date Details (start date - stop date) Current Smoker Sex Assigned At : Social History Observation Description Sex Assigned At Unknown Alcohol Screen Question Answer Notes Did you have a drink containing alcohol in the past year? No Points 0 Interpretation Negative Tobacco Use/Smoking Question Answer Notes Are you a current smoker Are you interested in quitting? Ready to quit How many cigarettes a day do you smoke? 11-20 How soon after you wake up do you smoke your first cigarette ? 6-30 minutes How often do you smoke cigarettes? every day Tobacco use other than smoking: Question Answer Notes Are you an other tobacco user? Yes vape zacarias cy REASON FOR REFERRAL No Information VITAL SIGNS Height 71 in Mar, Weight 274.8 lbs Mar, Temperature 97.5 degrees Fahrenheit Mar, BMI 38.32 kg/m2 Mar, Blood pressure systolic 163 mm Hg Mar, Blood pressure diastolic 89 mm Hg Mar, MEDICATIONS Medication SIG (Take, Route, Start Date End Date Status Frequency, Duration) Diclofenac Sodium Not-Taking Depakote 500 MG 3 TABLETS Orally AT NIGHT Active Acetic Acid Not-Taking Metformin HCl 500 MG 1 tablet with a meal Active Orally Once a day for 30 day(s) atorvastatin 20mg 1 tablet by mouth at Ac tive bedtime Triamcinolone Acetonide Acti ve Trulicity 1.5MGM Active Lidocaine-Prilocaine Active Tresiba FlexTouch 200 as directed Subcutaneous Active UNIT/ML Furosemide 20 MG (Prior Active Auth#:[id number]) Oral for 30 Venlafaxine HCl ER 75 MG Orally Not -Taking Lyrica 150 MG Orally Active Humalog KwikPen 100 UNIT/ML as directed Subcutaneous Active Eliquis 5 MG as directed Orally Active Olanzapine 10 MG 1 tablet Orally Once a Feb, A ctive day for 30 day(s) Tramadol HCl 50 MG 1 tablet as needed Orally Aug, Not-Taking Once a day Omeprazole 20 MG (Prior Active Auth#:[id number]) Oral for 30 Voltaren 1 % as directed Transdermal Acti ve apply small amount to affected area QID BuPROPion HBr 150 Active PROCEDURES No Information RESULTS No Results REASON FOR VISIT RT KNEE PAIN MEDICAL (GENERAL) HISTORY Type Description Date Medical History Diabetes, GI reflux disease, high choles terol, hepatitis, kidney infections/stones, art hritis, joint pain, anxiety, asthma, DVT on one lung Medical History COPD Medical History Depression Medical History Bipolar Medical History Schizophrenia Medical History paranoia Medical History Emphysema Medical History Diabetic [place] In feet Medical History HTN Medical History gang green right foot CURRENT Surgical History 2 amputations on foot Surgical History Diverticulitis Surgical History Laproscopic colon & resection Surgical History Total hysterectomy Surgical History cervical neck fusion Surgical History osteomyelitis Surgical History Back Surgical History Left Carpal Tunnel Surgical History right foot amputation 06/23/19 Hospitalization History right foot 06/2019 Hospitalization History wound-PIC LINE- Lovenox & Vancomycin for 6 weeks 02/2020 Goals Section No Information Health Concerns No Information MEDICAL EQUIPMENT No Information MENTAL STATUS No Information FUNCTIONAL STATUS No Information ASSESSMENTS Encounter Date Diagnosis Notes Mar, 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 We will continue with conservative treatment at this time. We discussed weight management, strengthening exercises, NSAIDs use, and corticosteroid/viscosupplementation injections. She is a poorly controlled diabetic and not a candidate for surgery or corticosteroid injection. She was instructed to ice and rest the knee. We will also restart formal physical therapy to work on quadriceps strengthening and improve patellar tracking. She will followup in 2 months for reevaluation. Closed displaced longitudinal -continue with home exercises and fracture of right patella with quad strengthening-nonunion nonunion, subsequent encounter increases risk of posttraumat ic arthrosis of the patellofemoral joint Next Appt Details 2 Months Reason: Provider Name:Navneet Call, 2020-04-27 0 1:00:00 PM, [address], [place], [address], Provider Name:Navneet Call, 2020-06-10 0 1:30:00 PM, [address], [place], [address], Insurance Providers Payer Name Payer Address Payer Insured Patient Coverage Cover age Phone Name Relationship to Start Date End Date Insured [facility] [address] [phone] Renetta Ramsay [facility] [address] [phone] MEDICARE Attn Part B [id number] Renetta Ramsay [facility] Claims [phone] [facility] [id number]
--- OUTSIDE RECORDS SUMMARY | 2020-05-03 06:33 | XMS REPORT | Continuity of Care Document ---
:1965 Author Organization [facility] t Address [address] [place] [address] Care Team Providers Name Role Phone BANKI Attending Clinician Unavailable Banki Attending Clinician Banki Admitting Clinician Problems Condition Condition Condition Status Onset Resolution Last Treating Co mments Source Name Details Category Date Date Treatment Clinician Date DX: Diagnosis Active 2017-072018-07-11 Mem oria R13.10=DYS -07 12:49:00 l PHAGIA, DX: 00:00: Peterman UNSPECIFIE R13.10=DYS 00 D, R10.1 PHAGIA, UNSPECIFIE D, R10.1 Active 05/29/2018 [facility] UNK Diagnosis Active 2018-04-23 Mem oria 04-17 08:18:00 l UNK 00:00: Peterman 00 Active 04/17/2018 [facility] GERD WO Diagnosis Active 2018-04-25 Me moria ESOPHAGITI 04-17 06:46:00 l S GERD WO 00:00: Peterman ESOPHAGITI 00 S Active 04/17/2018 [facility] K21.9, Diagnosis Active 2018-04-17 Mem oria R13.10, 04-04 08:54:00 l K44.9 K21.9, 00:00: Mario R13.10, 00 K44.9 Active 04/04/2018 [facility] History of History of Problem Resolve Univers [...] 2018-12-18 M emoria unspecifie 11:14:16 l d Peterman Dysphagia, unspecifie d 12/18/2018 [facility] Gastro-eso Problem 2018-12-18 M emoria phageal 11:14:16 l reflux Mario disease Gastro-eso without phageal esophagiti reflux s disease without esophagiti s 12/18/2018 [facility] Diaphragma Problem 2018-11-04 M emoria tic hernia 12:20:16 l without Peterman 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 11/04/2018 [facility] Gastritis, Problem 2018-11-10 M emoria unspecifie 12:35:52 l d, without Jb n bleeding Gastritis, unspecifie d, without bleeding 11/10/2018 [facility] Chronic Problem 2018-11-10 Tae ivan obstructiv 12:35:52 l e Chronic Mario pulmonary obstructiv disease, e unspecifie pulmonary d disease, unspecifie d 11/10/2018 [facility] Sleep Problem 2018-11-10 Memor ia apnea, 12:35:52 l unspecifie Sleep Lynsey nn d apnea, unspecifie d 11/10/2018 [facility] Type 2 Problem 2018-11-12 Memor ia diabetes 12:44:11 l mellitus Type 2 Jb n without diabetes complicati mellitus ons without complicati ons 11/12/2018 [facility] 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 2018-11-10 Me moria (current) 12:35:52 l use of Long Peterman oral term hypoglycem (current) ic drugs use of oral hypoglycem ic drugs 11/10/2018 [facility] Other long Problem 2018-11-10 M emoria term 12:35:52 l (current) Other Jb n drug mcfp therapy (current) drug therapy 11/10/2018 [facility] Nicotine Problem 2018-11-12 Mem oria dependence 12:44:11 l , Nicotine Jb n cigarettes dependence , , uncomplica cigarettes noris , uncomplica noris 11/12/2018 [facility] Deep Problem Resolve 2018-12-18 Tae ivan venous d 11:14:16 l thrombosis Deep Jb n (disorder) venous thrombosis (disorder) Resolved Problem 12/18/2018 [facility] Pulmonary Problem Resolve 2018-12-18 M emoria thromboemb d 11:14:16 l olism Peterman (disorder) Pulmonary thromboemb olism (disorder) Resolved Problem 12/18/2018 [facility] Anxiety Problem Active 2018-12-18 Tae ivan (finding) 11:14:16 l Anxiety Mario (finding) Active Problem 12/18/2018 [facility] Chronic Problem Active 2018-12-18 Tae ivan obstructiv 11:14:16 l e lung Chronic Mario disease obstructiv (disorder) e lung disease (disorder) Active Problem 12/18/2018 [facility] Diabetes Problem Active 2018-12-18 Mem oria mellitus 11:14:16 l (disorder) Diabetes He rmann mellitus (disorder) Active Problem 12/18/2018 [facility] Dyspnea on Problem Active 2018-12-18 M emoria exertion 11:14:16 l (finding) Dyspnea Herm ayana on exertion (finding) Active Problem 12/18/2018 [facility] Gastroesop Problem Active 2018-12-18 M emoria hageal 11:14:16 l reflux Peterman disease Gastroesop (disorder) hageal reflux disease (disorder) Active Problem 12/18/2018 [facility] Pulmonary Problem Active 2018-12-18 Me moria emphysema 11:14:16 l (disorder) Jb n Pulmonary emphysema (disorder) Active Problem 12/18/2018 [facility] Sleep Problem Active 2018-12-18 Memor ia apnea 11:14:16 l (finding) Sleep Jb n apnea (finding) Active Problem 12/18/2018 [facility] DYSPHAGIA, Diagnosis Active 2018-07-11 Memoria UNSPECIFIE 12:49:00 l D Mario DYSPHAGIA, UNSPECIFIE D Active [facility] GASTRO-ESO Diagnosis Active 2018-04-25 Memoria PHAGEAL 06:46:00 l REFLUX Peterman DISEASE GASTRO-ESO WITHOUT PHAGEAL REFLUX DISEASE WITHOUT Active [facility] DIAPHRAGMA Diagnosis Active 2018-04-17 Memoria TIC HERNIA 08:54:00 l WITHOUT Mario OBSTRUCTIO DIAPHRAGMA N TIC HERNIA WITHOUT OBSTRUCTIO N Active [facility] Epigastric Problem 2017-072018-12-18 2018-12-18 Memoria pain 2-28 11:14:16 11:14:16 l 04:44: Peterman Epigastric 43 pain 07/19/2018 12/18/2018 [facility] Achalasia Problem 2017-072018-11-12 2018-11-12 Memoria of cardia 0-10 12:44:11 12:44:11 l 03:32: Mario Achalasia 00 of cardia 05/01/2018 11/12/2018 [facility] Allergies, Adverse Reactions, Alerts Allergy Allergy [...] penicill Active Memori a ins ins l Mario Angelina Talwin Active Memoria l Mario Family History Family Member Diagnosis Comments Start Date Stop Date Source Mother Family history of [facility] [place] malignant neoplasm Physic ians of breast Social History Smoking Status Start Date Stop Date Source Smoker. current status [facility] [place] unknown Physicians Social History 2018-04-25 13:52:33 [facility] Medications Ordered Filled Start Stop Current Ordering Indication Dosage Frequency Signature Comments Components Source Medication Medication Date Date Medication? Clinician (SIG) Name Name Jazmine Lucero Yes Navneet as [facility] Tramadol Tramadol 2020- No Navneet [address] [facility] HCl HCl 08-29 07-10 Call as needed [facility]: [facility]00 Memoria 00 :00 l [facility] Oxycodone 2017-07 No 5 [...] mine 0-04 Route: l 16:19: IVP, Drug Peterman 00 form: INJ, Q6H, Dosing Weight 113.636, kg, PRN Itching, Start date: 04/25/18 11:19:00 CDT, Duration: 30 day, Stop date: 05/25/18 11:18:00 CDT Naloxone 2017-07 No 0.1 mg, Memori a 0-04 Route: l 16:19: SUB-Q, Mario 00 Q6H, Dosing Weight 113.636, kg, PRN Itching, Start date: 04/25/18 11:19:00 CDT, Duration: 30 day, Stop date: 05/25/18 11:18:00 CDT Albuterol 2017-07 No 2.49 mg, Tae ivan 0.83 MG/ML 0-04 Route: l Inhalant 16:19: NEB, Peterman Solution 00 Q20Min, Dosing Weight 113.636, kg, PRN Wheezing, Priority: STAT, Start date: 04/25/18 11:19:00 CDT, Duration: 30 day, Stop date: 05/25/18 11:18:00 CDT Hydromorpho 2017-07 No 0.5 mg, Mem oria ne 0-04 Route: l 16:19: IVP, Mario 00 Q5Min, Dosing Weight 113.636, kg, PRN Pain Score 7-10, Start date: 04/25/18 11:19:00 CDT, Duration: 4 doses or times, Stop date: Limited # of times Meperidine 2017-07 No 12.5 mg, Mem oria 0-04 Route: l 16:19: IVP, Peterman 00 Q30Min, Dosing Weight 113.636, kg, PRN Other -See Comment, For shivering, Start date: 04/25/18 11:19:00 CDT, Duration: 2 doses or times, Stop date: Limited # of times Fentanyl 2017-07 No 25 Memoria 0-04 microgram, l 16:19: Route: Peterman 00 IVP, Q5Min, Dosing Weight 113.636, kg, PRN Pain Score 4-6, Priority: Routine, Start date: 04/25/18 11:19:00 CDT, Duration: 4 doses or times, Stop date: Limited # of times Flumazenil 2017-07 No 0.2 mg, Tae ivan 0-04 Route: l 16:19: IVP, PRN, Peterman 00 Dosing Weight 113.636, kg, PRN Benzodiaze [...] moria e 0-04 Route: l 16:19: IVPB, Peterman 00 ONCE, Dosing Weight 113.636, kg, PRN [...] 0-04 Drug form: l 14:44: INJ, ONCE, Peterman 00 Stop date: 04/25/18 9:44:00 CDT rocuronium 2017-07 No Route: IV, M emoria (ANES) 0-04 Drug form: l 14:44: INJ, ONCE, Stop date: 04/25/18 9:44:00 CDT propofol 2017-07 No Route: IV, Mem oria (ANES) 0-04 Drug form: l 14:44: INJ, ONCE, Peterman 00 Stop date: 04/25/18 9:44:00 CDT ondansetron 2017-07 No Route: IV, Memoria (ANES) 0-04 Drug form: l 14:44: INJ, ONCE, Peterman 00 Stop date: 04/25/18 9:44:00 CDT acetaminoph 2017-07 No Route: IV, Memoria en (ANES) 0-04 Drug form: l 14:44: INJ, ONCE, Mario 00 Stop date: 04/25/18 9:44:00 CDT famotidine [...] (ANES) 0-04 Drug form: l 14:34: SOLN, Peterman 00 ONCE, Stop date: 04/25/18 9:34:00 CDT Sodium 2017-07 No Route: IV, Memor ia Chloride 0-04 Total l 0.9% IV 13:58: Volume: Mario (ANES) 1000 00 1,000, mL Start date: 04/25/18 8:58:00 CDT, Stop date: 04/25/18 9:58:00 CDT Calcium 2017-07 No 1,000 mL, Memor ia Chloride 0-04 Rate: 25 l 0.0014 13:50: ml/hr, Peterman MEQ/ML / 00 Infuse Potassium over: 40 [...] regular 0-04 Route: IV, l 12:58: ONCE, Peterman 00 Dosing Weight 113.636, kg, Start date: 04/25/18 [...] FlexTouch 9-28 SUB-Q, QAM l 19:59: (Insulin), Peterman 00 0 Refill(s) Humalog 2018- Yes 15 unit, Memori a 9-28 SUB-Q, l 19:59: TID-Before Peterman 00 Meals, 0 Refill(s) rivaroxaban 2018-0 Yes 20 mg = 1 M emoria [...] tab, PO, l tablet 19:58: QPM, 0 Peterman 00 Refill(s) 24 HR Yes 3 tabs, Memoria Divalproex 04-19 PO, l Sodium 500 19:58: Bedtime, 0 H ermann MG Extended 00 Refill(s) Release Tablet [Depakote] pantoprazol Yes 40 mg = 1 M emoria e 40 mg - tab, PO, l oral 19:57: BID, 0 Mario enteric 00 Refill(s) coated tablet pregabalin Yes 150 mg = 1 M emoria 150 MG Oral 04-19 cap, PO, l Capsule 19:57: QAM, 0 Peterman [Lyrica] 00 Refill(s) venlafaxine Yes 150 mg = 1 Memoria 150 mg oral - tab, PO, l tablet, 19:57: QAM, # 30 Lynsey nn extended 00 tab, 0 release Refill(s) olanzapine Yes 5 mg = 1 Mem oria 5 MG Oral -28 tab, PO, l Tablet 19:56: QAM, 0 Peterman 00 Refill(s) pioglitazon Yes 30 mg = 1 M emoria e 30 mg -28 tab, PO, l oral tablet 19:56: QAM, 0 Herm ayana 00 Refill(s) Alprazolam Yes 1 mg = 1 Mem oria 1 MG Oral -28 tab, PO, l Tablet 19:55: QAM, 0 Mario [Xanax] 00 Refill(s) metFORMIN Yes 1,000 mg = Me moria 500 mg oral 04-19 2 tab, PO, l tablet, 19:55: BID, 0 Peterman extended 00 Refill(s) release Olanzapine Olanzapine Yes [...] o f Tablet Tablet [place] Physici ans Venlafaxine Venlafaxine Yes R.N. U nivers HCl ER 150 HCl ER 150 ity of MG Oral MG Oral [place] Tablet Tablet Physici Extended Extended ans Release 24 Release 24 Hour Hour Lyrica 150 Lyrica 150 Yes R.N. Uni vers MG Oral MG Oral ity of Capsule Capsule [place] Physici ans Pantoprazol Pantoprazol Yes R.N. U nivers e Sodium 40 e Sodium 40 i ty of MG Oral MG Oral [place] Tablet Tablet Physici Delayed Delayed ans Release Release Depakote Depakote Yes R.N. Univers 500 MG Oral 500 MG Oral i ty of Tablet Tablet [place] Delayed Delayed Physici Release Release ans OLANZapine OLANZapine Yes R.N. Uni vers 10 MG Oral 10 MG Oral ity of Tablet Tablet [place] Physici ans Fenofibrate Fenofibrate Yes R.N. U nivers 145 MG Oral 145 MG Oral i ty of Tablet Tablet [place] Physici ans Xarelto 20 Xarelto 20 Yes R.N. Uni vers MG Oral MG Oral ity of Tablet Tablet [place] Physici ans HumaLOG HumaLOG Yes R.N. Univers SOLN SOLN [facility] [place] Physici ans Tresiba Tresiba Yes R.N. Univers [...] Yes Navneet (Prior [facility] Call Auth[facility]0000 [facility] - [id number]) [facility] l Out[facility] ent Clinics atorvastati atorvastati Yes Navneet [address] [facility] [facility] n n Call by mouth [facility] - at bedtime [facility] Triamfirsthealth Triamcinolo Yes Navneet not [facility] ne [...] Yes Navneet (Prior [facility] Call Auth#:0000 [facility] - [id number]) [facility] Humalog Humalog Yes Navneet as [facility] KwikPen KwikPen Call directed [facility] Eliquis Eliquis Yes Navneet as [facility] Call directed [facility] Diclofenac Diclofenac Yes Navneet not [facility] Sodium Sodium Call defined [facility] Tresiba Tresiba Yes Navneet as [facility] FlexTouch FlexTouch Call directed [facility] Vital Signs Vital Name Observation Time Observation Value Comments Source BP Systolic 2018-05-30 138 mm[Hg] Location: Count includes the [facility] 14:10:00 Position: [place] Physician s Sitting BP Diastolic 2018-05-30 91 mm[Hg] Location: Count includes the [facility] 14:10:00 Position: [place] Physician s Sitting Height 2018-05-30 71 [in_us] University 14:10:00 [place] Physician s Weight 2018-05-30 249.375 [lb_av] University o f 14:10:00 [place] Physician s Body Mass Index 2018-05-30 34.78 kg/m2 University o f Calculated 14:10:00 [place] Physician s Temperature 2018-05-30 98 [degF] Method: Oral University 14:10:00 [place] Physician s Heart Rate 2018-05-30 80 /min Quality: Normal University o f 14:10:00 [place] Physician s Respiration Rate 2018-05-30 18 /min Quality: Normal Universi ty of 14:10:00 [place] Physician s O2 SAT 2018-05-30 97 % Source: [facility] 14:10:00 [place] Physician s BP Systolic 2018-05-01 126 mm[Hg] Location: Count includes the [facility] 11:46:00 Position: [place] Physician s Sitting BP Diastolic 2018-05-01 75 mm[Hg] Location: Count includes the [facility] 11:46:00 Position: [place] Physician s Sitting [...] s O2 SAT 2018-05-01 95 % Source: [facility] 11:46:00 [place] Physician s Systolic (mm [...] 19:52:00 BP Systolic 2018-04-17 126 mm[Hg] Location: Count includes the [facility] 09:58:00 Position: [place] Physician s Sitting BP Diastolic 2018-04-17 81 mm[Hg] Location: Count includes the [facility] 09:58:00 Position: [place] Physician s Sitting [...] Respiration Rate 2018-04-17 18 /min Quality: Normal [facility] 09:58:00 [place] Physician s O2 SAT 2018-04-17 95 % Source: [facility] 09:58:00 [place] Physician s Procedures Procedure Date / Time Performing Source Performed Clinician History of Appendectomy [facility] Physicians History of Neck surgery [facility] Physicians History of Hysterectomy [facility] Physicians History of Colon Surgery [facility] Physicians History of Back Surgery [facility] Physicians History of Heller Myotomy Floyd renteriay of Laparoscopic Approach [place] [facility] Amputation [facility] Colonoscopy [facility] Esophagogastroduodenoscopy Memor ial Peterman Resection [facility] Encounters Start End Encounter Admission Attending Care Care Encounter Source Date/Time Date/Time Type Type Clinicians Facility Department ID 2020-04-16 2020-04-[address] [facility] [id number] [facility] 2020-02-18 2020-02-18 [facility] [id number] [facility] [address] 08:00:00 08:00:00 [facility] 2020-02-09 2020-02-09 [facility] [id number] [facility] 11:53:00 11:53:00 [facility] 2020-01-27 2020-01-27 [facility] [id number] 13:00:00 13:00:00 [facility] 2020-01-21 2020-01-21 [facility] [id number] [address] 09:30:00 09:30:00 [facility] 2020-01-14 2020-01-14 [facility] [id number] 09:18:00 09:18:00 [facility] 2020-01-08 2020-01-08 [facility] [id number] [facility] 14:15:00 14:15:00 [facility] 2019-12-04 2019-12-04 [facility] [id number] [facility] [address] 11:00:00 11:00:00 [facility] 2019-11-20 2019-11-20 [facility] [id number] [facility] 16:22:00 16:22:00 [facility] 2019-10-06 2019-10-06 [facility] [id number] [facility] 11:00:00 11:00:00 [facility] 2019-09-29 2019-09-29 [facility] [id number] [facility] [address] 13:10:00 13:10:00 [facility] 2019-09-11 2019-09-11 [facility] [id number] [facility] 13:30:00 13:30:00 [facility] 2019-09-01 2019-09-01 [facility] [id number] [facility] 09:16:00 09:16:00 [facility] 2019-08-29 2019-08-29 [facility] [id number] [facility] 08:18:00 08:18:00 t [facility] 2019-08-22 2019-08-22 [facility] [id number] 09:00:00 09:00:00 [facility] 2019-08-20 2019-08-20 [facility] [id number] 15:48:00 15:48:00 t [facility] 2019-08-18 2019-08-18 [facility] [id number] 12:00:00 12:00:00 t [facility] 2019-08-06 2019-08-06 [facility] [id number] [address] 13:30:00 13:30:00 t [facility] 2019-08-04 2019-08-04 [facility] [id number] [address] 11:00:00 11:00:00 t [facility] 2019-07-29 2019-07-29 [facility] [id number] [address] 16:13:00 16:13:00 t [facility] 2019-07-21 2019-07-21 [facility] [id number] [facility] 11:09:00 11:09:00 [facility] 2019-07-10 2019-07-10 [facility] [id number] [address] 13:30:00 13:30:00 t [facility] 2019-06-12 2019-06-12 [facility] [id number] 11:37:00 11:37:00 t [facility] 2019-06-09 2019-06-09 [facility] [id number] [address] 14:59:00 14:59:00 t [facility] 2019-06-09 2019-06-09 [facility] [id number] 08:00:00 08:00:00 t [facility] 2019-05-28 2019-05-28 [facility] [id number] 09:16:00 09:16:00 [facility] 2019-05-27 2019-05-27 [facility] [id number] [address] 15:03:00 15:03:00 [facility] 2019-05-22 2019-05-22 [facility] [place] [id number] 13:30:00 13:30:00 t [facility] 2019-05-08 2019-05-08 [facility] [place] [id number] [address] 09:55:00 09:55:00 t [facility] 2019-05-06 2019-05-06 [facility] [place] [id number] 14:30:00 14:30:00 [facility] 2019-05-02 2019-05-02 [facility] [id number] 10:23:00 10:23:00 t [facility] 2019-04-28 2019-04-28 [facility] [id number] 08:46:00 08:46:00 t [facility] 2019-04-22 2019-04-22 [facility] [id number] 08:00:00 08:00:00 t [facility] 2019-04-17 2019-04-17 [facility] [id number] 13:30:00 13:30:00 t [facility] of [facility] 2019-04-14 2019-04-14 Outpatient Timmy Barbourzeb [id number] 13:21:00 13:21:00 t Urgent Urgent Care L Formerly named [facility] 2019-04-14 2019-04-14 Outpatient Timmy Timmyt [id number] 11:15:00 11:15:00 t Urgent Urgent Care L Formerly named [facility] 2018-07-31 2018-07-31 Appointmen CINDY ARIAS [facility] [id number] Univers 09:15:00 09:15:00 t; NABOR ARIAS it y of FARZANEH, M.D. [place] M.D. [facility] 2018-05-30 2018-05-30 Outpatient Milena [facility] [id number] 13:00:00 23:59:00 Nabor 2018-05-30 2018-05-30 AppointCINDY Mont[facility] [id number] Univers 14:00:00 14:00:00 t; NABOR ARIAS cic and Antonieta M.D. Vascular Terry MRaciel Surgery at [facility] 2018-05-01 2018-05-01 AppointCINDY Montes [facility] [id number] Univers 11:15:00 11:15:00 t; NABOR ARIAS cic and it y of FARZANEH, M.D. Vascular Terry Corley Surgery at [facility] 2018-04-25 2018-04-25 Outpatient Milena [facility] [id number] 06:46:00 13:58:00 Nabor 2018-04-23 2018-04-23 Outpatient Milena [facility] [id number] 05:57:00 09:10:00 [facility] 2018-04-17 2018-04-17 Outpatient Milena [facility] [id number] 08:16:00 23:59:00 [facility] 2018-04-17 2018-04-17 Appointmen BANKI, [facility] [id number] [facility] 09:00:00 09:00:00 t; NABOR ARIAS, jessica and it y of Jory [place]OM[place] Vascular Terry Corley Surgery at [facility] ans Results Test Description Test Time Test Comments Results Result Sourc e Comments BLOOD BANK RESULTS 2018-04-19 Negative Memori al 20:18:00 (04/19/18 3:18 Mario PM) CHEM PANEL 2018-04-19 56 [facility] 20:18:00 Mario CHEM PANEL 2018-04-19 21 [facility] 20:18:00 Mario CHEM PANEL 2018-04-19 3.2 Memorial 20:18:00 Mario CHEM PANEL 2018-04-19 25 [facility] 20:18:00 Mario CHEM PANEL 2018-04-19 65 [facility] 20:18:00 Peterman CHEM PANEL 2018-04-19 0.2 Memorial 20:18:00 Peterman CHEM PANEL 2018-04-19 9.0 Memorial 20:18:00 Mario CHEM PANEL 2018-04-19 6.7 Memorial 20:18:00 Peterman CHEM PANEL 2018-04-19 288 [facility] 20:18:00 Peterman CHEM PANEL 2018-04-19 18 Memorial 20:18:00 Peterman CHEM PANEL 2018-04-19 1.13 Memorial 20:18:00 Mario CHEM PANEL 2018-04-19 143 [facility] 20:18:00 Peterman CHEM PANEL 2018-04-19 105 [facility] 20:18:00 Mraio CHEM PANEL 2018-04-19 27 Memorial 20:18:00 Mario CHEM PANEL 2018-04-19 4.5 Memorial 20:18:00 Peterman CHEM PANEL 2018-04-19 15.5 Memorial 20:18:00 Peterman CHEM PANEL 2018-04-19 20:18:00 Test Item Value Reference Range Interpretation Comme nts B/C Ratio (test code = B/C Ratio) 16 1 6-25 [facility] [id number] 20:18:003.5[facility]annCHEM PANEL 2018-04-19 20:18:00 Test Item Value Reference Range Interpretation Comments A/G Ratio (test code = A/G Ratio) 0.9 1 0.7-1.6 [facility] OimpgshLADPUPCHAD2549-68-05 20:18:00 Test Item Value Reference Range Interpretation Comments PTT (test code = PTT) 25.8 s 22.9-35.8 [facility] PkormkuCJKSQNYSQC8976-96-35 20:18:00 Test Item Value Reference Range Interpretation Comments PT (test code = PT) 14.0 s 12.0-14.7 [facility] LkishsfXHETDERVFT2377-52-08 20:18:00 Test Item Value Reference Range Interpretation Comments INR (test code = INR) 1.08 1 0.85-1.17 [facility] TcyvfjmFNTCBCAAQP8970-25-15 20:18:42834Xkwadgdg HermannHEMATOLOGY 2018-04-19 20:18:008.7[facility] JggftnqLRYSUGDRWU9260-24-00 20:18:00 Test Item Value Reference Range Interpretation Comments MCH (test code = MCH) 29.7 pg 27.0-31.0 [facility] IewjyqeUOOKTWEROR3898-25-10 20:18:0015.0[facility]annHEMATOLOGY 2018-04-19 20:18:0033.1[facility] BuembgiZFHTBDDUWS5108-64-54 20:18:0089.8[facility] PgbouhxCCEKDAJAJG5727-38-25 20:18:0039.1[facility] PgrkoosWPVHRNBUVM8453-95-20 20:18:006.0[facility] WyqtjjlOYDZBMRKIQ2955-52-38 20:18:0012.9[facility] KXFLAXLGUC6992-78-69 20:18:004.35[facility] AfqijpvOEMFWJZKGS7825-17-12 20:18:00 0.1[facility] EufaoutMBHEROEKCA2668-26-88 20:18:003.5[facility]annHEMATOLOGY 2018-04-19 20:18:000.4[facility] XqzubbfGHEXNXRWOQ9537-72-80 20:18:000.3[facility] GdgelxbAWNQDWDCAP8226-48-05 20:18:001.9[facility] QzgquddPTLXHRRIRB0277-02-70 20:18:002.3[facility] TjqikkhTVGQPOMRDW6589-69-54 20:18:007.4[facility] KNAXRBTNOY2552-59-71 20:18:0031.6[facility] UshyjknPSRYEZTIKD0066-56-48 20:18:00 58.4[facility]annSPECIAL GFBEHONAL0906-97-13 20:18:0010.3[facility] URINE AND [id number] 20:18:00Negative (04/19/18 3:18 PM)[facility] URINE AND [id number] 20:18:00Negative (04/19/18 3:18 PM)[facility]INE AND [id number] 20:18:001[facility] [id number] 20:18:00Negative (04/19/18 3:18 PM)[facility] TKKFU8419-84-24 20:18:005[facility] WQXWT9629-94-21 20:18:00 Test Item Value Reference Range Interpretation Comments UA pH (test code = UA pH) 5.0 1 5.0-8.0 [facility] [id number] 20:18:00 Test Item Value Reference Range Interpretation Comments UA Spec Grav (test code = UA Spec 1.025 1 Grav) [facility] [id number] 20:18:00Slight *ABN*(04/19/18 3:18 PM) [facility] [id number] 20:18:00Yellow *NA*(04/19/18 3:18 PM) [facility] [id number] 20:18:00Negative *NA*(04/19/18 3:18 PM) [facility] [id number] 20:00:00Product available (04/19/18 3:00 PM)[facility]
--- OUTSIDE RECORDS SUMMARY | 2020-05-03 06:33 | XMS REPORT ---
[...] Start End Status Dosage System Date Date Tresiba [facility] 33184917578 200 UNIT/ML Active as FlexTouch Subcutaneous directed Depakote ND 10648737574 500 MG Orally Active 3 TAB LETS AT NIGHT Eliquis [facility] 61709670954 5 MG Orally Active as directed Acetic Acid NDC 0 Active not defined Triamcinolone [facility] [address]-44 Active not Acetonide defined Lyrica ND 09025870640 150 MG Orally Active not defined Diclofenac [facility] [address]-47 Active not Sodium defined BuPROPion HBr NDC 0 150 Active not defined Tramadol HCl [facility] 54280546201 50 MG Orally Aug 29, Active 1 tablet Once a day 2019 as needed Venlafaxine HCl ND 06279410897 75 MG Orally Active not ER defined Lidocaine-Priloc [facility] [address]-27 Active n ot ayush defined Furosemide [facility] 64038070992 20 MG Oral Active (Prior Auth#:[id number]) Olanzapine ND 88044072009 10 MG Orally Feb 25, Active 1 ta blet Once a day 2017 Metformin HCl [facility] 84501014627 500 MG Orally Active 1 tablet Once a day with a meal Trulicity NDC 0 1.5MGM Active not defined Voltaren [facility] 08583769497 1 % Transdermal February 18, Active as apply small 2020 directed amount to affected area QID atorvastatin [facility] 01768013592 20mg Active 1 table t by mouth at bedtime Humalog MinikPen [facility] 65587086853 100 UNIT/ML Active as Subcutaneous directed Omeprazole [facility] 19257437663 20 MG Oral Active (Prior Auth#:[id number]) Results No Known Results Summary Purpose eClinicalWorks Submission
[2020-05-03 07:00] LABS: Absolute Lymphocytes (CBC) 2.9 K/uL (0.7-4.9); Basophils % 0.5 % (0-1.3); Hematocrit 39.1 % (36.0-45.0); Lymphocytes % 27.3 % (15.3-44.8); MPV 9.5 fL (7.6-11.3); RBC Red Blood Cell Count 4.79 M/uL (3.86-4.86)
[2020-05-03 07:14] LABS: Albumin 3.6 g/dL (3.4-5.0); Bilirubin Direct 0.1 mg/dL (0-0.2); Bilirubin Total 0.3 mg/dL (0.2-1.0); Potassium 4.4 mmol/L (3.5-5.1); Protein, Total 7.5 g/dL (6.4-8.2)
[2020-05-03] MEDS ORDERED: KETOROLAC 30 MG/ML INJ ONE (07:20)
--- NOTE | 2020-05-03 07:36 | RAD REPORT ---
EXAM DESCRIPTION: CT - Stone Protocol - 05/03/2020 7:00 am CLINICAL HISTORY: Abdominal pain. COMPARISON: 2017 TECHNIQUE: Computed axial tomography of the abdomen pelvis was obtained without oral or IV contrast. Lack of IV and oral contrast limits evaluation of solid organs, bowel, and vessels. Coronal reformat noris images were obtained and reviewed. All CT scans are performed using dose optimization technique as appropriate and may include automated exposure control or mA/KV adjustment according to patient size. FINDINGS: A renal calculus is not seen. An ureteral calculus is not noted. A bladder calculus is not present. Mild hepatomegaly Small hiatal hernia Spleen, pancreas and adrenals appear grossly normal There is no evidence of diverticulitis. Sigmoidectomy. IMPRESSION: Negative for a genitourinary calculus
--- NOTE | 2020-05-03 08:04 | ER ---
Nurse's Notes [facility] Name: Renetta Ramsay Age: 54 yrs Sex: Female : 1965 Arrival Date: 05/03/2020 Time: 06:31 Bed 20 Private MD: Diagnosis: Low back pain Presentation: 05/03 06:42 Chief complaint: Patient states: she has been having left lower back pain x 1 to 2 bb weeks she thinks it is a kidney stone. Coronavirus screen: At this time, the client does not indicate any symptoms associated with coronavirus-19. Ebola Screen: No symptoms or risks identified at this time. Initial Sepsis Screen: Does the patient meet any 2 criteria? No. Patient's initial sepsis screen is negative. Does the patient have a suspected source of infection? No. Patient's initial sepsis screen is negative. Risk Assessment: Do you want to hurt yourself or someone else? Patient reports no desire to harm self or others. Onset of symptoms is unknown. 06:42 Method Of Arrival: Ambulatory bb 06:42 Acuity: OLY 3 bb Triage Assessment: 06:45 General: Appears in no apparent distress. uncomfortable, Behavior is calm, cooperative. bb Pain: Complains of pain in back Pain radiates to abdomen Pain currently is 9 out of 10 on a pain scale. Neuro: Level of Consciousness is awake, alert, obeys commands, Oriented to person, place, time, situation. Cardiovascular: No deficits noted. Respiratory: Respiratory effort is even, unlabored, Respiratory pattern is regular. GI: Abdomen is obese, Abdomen is tender to palpation in left lower quadrant. Derm: Skin is pink, warm \T\ dry. Musculoskeletal: Circulation, motion, and sensation intact. 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 LMP N/A - bb Historical: - Allergies: 06:45 Amoxicillin; bb 06:45 ARIPIPRAZOLE; bb 06:45 Demerol; bb 06:45 PENICILLINS; bb 06:45 pentazocine lactate; bb 06:45 Talwin; bb - Home Meds: 06:45 atorvastatin 40 mg Oral tab 1 tab nightly [Active]; Depakote 500 mg Oral TbEC 3 tabs bb nightly [Active]; Eliquis 5 mg Oral tab 1 tab 2 times per day [Active]; furosemide 20 mg Oral tab 1 tab once daily [Active]; Humalog 100 unit/mL Sub-Q crtg 15 unit after meals and before bedtime [Active]; Lyrica 150 mg Oral 3 times per day [Active]; metformin 500 mg Oral Tb24 1 tab 2 times per day [Active]; olanzapine 5 mg Oral tab once daily [Active]; omeprazole 20 mg Oral cpDR 1 cap once daily [Active]; Tresiba FlexTouch U-100 100 unit/mL (3 mL) subcutaneous inpn 90 unit daily [Active]; Trulicity 0.75 mg/0.5 mL subcutaneous pnij 0.5 mL once wkly [Active]; venlafaxine 75 mg Oral cp24 once daily [Active]; - PMHx: 06:45 ADD/ADHD; Bipolar disorder; Chronic pain; Depression; Diabetes - NIDDM; DVT; Esophageal bb stricture; High Cholesterol; Hypertension; osteomyelitis; Pancreatitis; - PSHx: 06:45 Neck surgery; Appendectomy; Hysterectomy; colon resection; toe amputation; bb - Immunization history:: Adult Immunizations up to date. - Social history:: Smoking status: Patient reports the use of cigarette tobacco products, smokes one-half pack cigarettes per day. Screenin:47 Abuse screen: Denies threats or abuse. Nutritional screening: No deficits noted. bb Tuberculosis screening: No symptoms or risk factors identified. Fall Risk None identified. Assessment: 06:47 Reassessment: No changes from previously documented assessment. see triage assessment. bb 06:56 Reassessment: pt to CT scan accompanied by [employer] service technician. bb 07:10 Reassessment: PT RETURNED FROM CT. RECD REPORT FROM KATHRYN FLORES. 54YO WF P/W LUMBAR PAIN, bp R/O KIDNEY STONE. VS STABLE ON MONITOR. 08:18 Reassessment: PT D/C HOME AMBULATORY, DX WITH BACK PAIN. bp Vital Signs: 06:42 BP 155 / 96; Pulse 84; Resp 20 S; Temp 98.1(O); Pulse Ox 97% on R/A; Weight 115.67 kg bb (R); Height 5 ft. 10 in. (177.80 cm) (R); Pain 9/10; 07:10 BP 128 / 73; Pulse 81; Resp 16; Pulse Ox 97% ; bp 08:18 BP 115 / 58; Pulse 75; Resp 16; Pulse Ox 96% ; bp 06:42 Body Mass Index 36.59 (115.67 kg, 177.80 cm) bb ED Course: 06:31 Patient arrived in ED. bp1 06:43 Triage completed. bb 06:45 Arm band placed on Patient placed in an exam room, on a stretcher, on pulse oximetry. bb 06:47 Patient has correct armband on for positive identification. Call light in reach. Side bb rails up X 1. Pulse ox on. NIBP on. 06:50 Initial lab(s) drawn, by ED staff, sent to lab. Urine collected: clean catch specimen. bb Inserted saline lock: 20 gauge in left antecubital area, using aseptic technique. ,using aseptic technique. by Abiodun FLORES Blood collected. 06:57 Ventura Herron MD is Attending Physician. tw4 07:00 CT Stone Protocol In Process Unspecified. EDOK 07:00 Bobby Mo, RN is Primary Nurse. bp 08:18 No provider procedures requiring assistance completed. IV discontinued, intact, bp bleeding controlled, No redness/swelling at site. Pressure dressing applied. Administered Medications: 07:09 Drug: TORadol 30 mg Route: IVP; Site: left antecubital; bp 08:19 Follow up: Response: No adverse reaction; Pain is decreased bp Outcome: 08:03 Discharge ordered by . tw4 08:18 Discharged to home ambulatory. bp 08:18 Condition: stable 08:18 Discharge instructions given to patient, Instructed on discharge instructions, follow up and referral plans. medication usage, Demonstrated understanding of instructions, follow-up care, medications, Prescriptions given X 3. 08:19 Patient left the ED. bp Signatures: Dispatcher [employer] Kathryn Lerner RN RN bb Peltier, Brian, RN RN Ventura Ramirez MD MD tw4 lEena Griffith bp1
--- NOTE | 2020-05-03 08:04 | EDPHYS ---
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: 05/03 06:45 LMP N/A - bb Historical: - Allergies: 06:45 Amoxicillin; bb 06:45 ARIPIPRAZOLE; bb 06:45 Demerol; bb 06:45 PENICILLINS; bb 06:45 pentazocine lactate; bb 06:45 Talwin; bb - Home Meds: 06:45 atorvastatin 40 mg Oral tab 1 tab nightly [Active]; Depakote 500 mg Oral TbEC 3 tabs bb nightly [Active]; Eliquis 5 mg Oral tab 1 tab 2 times per day [Active]; furosemide 20 mg Oral tab 1 tab once daily [Active]; Humalog 100 unit/mL Sub-Q crtg 15 unit after meals and before bedtime [Active]; Lyrica 150 mg Oral 3 times per day [Active]; metformin 500 mg Oral Tb24 1 tab 2 times per day [Active]; olanzapine 5 mg Oral tab once daily [Active]; omeprazole 20 mg Oral cpDR 1 cap once daily [Active]; Tresiba FlexTouch U-100 100 unit/mL (3 mL) subcutaneous inpn 90 unit daily [Active]; Trulicity 0.75 mg/0.5 mL subcutaneous pnij 0.5 mL once wkly [Active]; venlafaxine 75 mg Oral cp24 once daily [Active]; - PMHx: 06:45 ADD/ADHD; Bipolar disorder; Chronic pain; Depression; Diabetes - NIDDM; DVT; Esophageal bb stricture; High Cholesterol; Hypertension; osteomyelitis; Pancreatitis; - PSHx: 06:45 Neck surgery; Appendectomy; Hysterectomy; colon resection; toe amputation; bb - Immunization history:: Adult Immunizations up to date. - Social history:: Smoking status: Patient reports the use of cigarette tobacco products, smokes one-half pack cigarettes per day. Vital Signs: 06:42 BP 155 / 96; Pulse 84; Resp 20 S; Temp 98.1(O); Pulse Ox 97% on R/A; Weight 115.67 kg bb (R); Height 5 ft. 10 in. (177.80 cm) (R); Pain 04/01; 07:10 BP 128 / 73; Pulse 81; Resp 16; Pulse Ox 97% ; bp 08:18 BP 115 / 58; Pulse 75; Resp 16; Pulse Ox 96% ; bp 06:42 Body Mass Index 36.59 (115.67 kg, 177.80 cm) bb MDM: 06:57 Patient medically screened. tw4 05/03 06:39 Order name: Basic Metabolic Panel; Complete Time: 07:40 tw4 05/03 07:40 Interpretation: Normal except: GLUC 189; BUN 21; CRE 1.31; GFR 42. tw4 05/03 06:39 Order name: CBC with Diff; Complete Time: 07:40 tw4 05/03 07:40 Interpretation: Normal except: WBC 10.5; RDW 16.6. tw4 05/03 06:39 Order name: Hepatic Function; Complete Time: 07:40 tw4 05/03 07:41 Interpretation: Normal except: AST 9; GLOB 3.9; A/G 0.9. tw4 05/03 06:39 Order name: Lipase; Complete Time: 07:40 tw4 05/03 07:41 Interpretation: Within normal limits: LIP 284. tw4 05/03 06:39 Order name: CT Stone Protocol; Complete Time: 07:40 tw4 05/03 07:06 Order name: Urine Dipstick--Ancillary (enter results) tt3 05/03 06:39 Order name: IV Saline Lock; Complete Time: 06:52 tw4 05/03 06:39 Order name: Labs collected and sent; Complete Time: 06:52 tw4 05/03 06:39 Order name: Urine Dipstick-Ancillary (obtain specimen); Complete Time: 06:56 tw4 Administered Medications: 07:09 Drug: TORadol 30 mg Route: IVP; Site: left antecubital; bp 08:19 Follow up: Response: No adverse reaction; Pain is decreased bp Disposition: 05/03/20 08:03 Discharged to Home. Impression: Low back pain. - Condition is Stable. - Discharge Instructions: Back Pain, Adult. - Prescriptions for Ibuprofen 800 mg Oral Tablet - take 1 tablet by ORAL route every 8 hours As needed take with food; 30 tablet. Cyclobenzaprine 10 mg Oral Tablet - take 1 tablet by ORAL route every 8 hours As needed; 30 tablet. Tramadol 50 mg Oral Tablet - take 1 tablet by ORAL route every 8 hours as needed; 12 tablet. - Medication Reconciliation Form, Thank You Letter, Antibiotic Education, Prescription Opioid Use form. - Follow up: Private Physician; When: Upon discharge from the Emergency Department; Reason: Recheck today's complaints, Continuance of care, Re-evaluation by your physician. - Problem is new. - Symptoms have improved. Signatures: Dispatcher [employer] EDKathryn Webb RN RN Bobby Estrada RN RN bp Ventura Herron MD MD tw4 Corrections: (The following items were deleted from the chart) 08:19 08:03 05/03/2020 08:03 Discharged to Home. Impression: Low back pain. Condition is bp Stable. Forms are Medication Reconciliation Form, Thank You Letter, Antibiotic Education, Prescription Opioid Use. Follow up: Private Physician; When: Upon discharge from the Emergency Department; Reason: Recheck today's complaints, Continuance of care, Re-evaluation by your physician. Problem is new. Symptoms have improved. tw4
[2020-05-03 08:31] VITALS: TEMP 98.1
[2020-05-03 08:32] LABS: Urine Blood NEGATIVE (NEG); Urine Glucose NEGATIVE (NEG); Urine Protein 1+ (NEG); Urine Specific Gravity >1.030 (1.005-1.030); Urine pH 5.5 (5.0-7.0)
[2020-05-03 08:47] VITALS: BP 115/58; O2SAT 96
== END 2020-05-03 08:19 | disposition home or self-care (01) ==
LOC: ER 06:28
DX: M54.5 Low back pain (principal); I10 Essential (primary) hypertension; E11.9 Type 2 diabetes mellitus without complications; F31.9 Bipolar disorder, unspecified; E78.00 Pure hypercholesterolemia, unspecified; Z79.4 Long term (current) use of insulin; Z79.01 Long term (current) use of anticoagulants; Z88.0 Allergy status to penicillin; Z88.1 Allergy status to other antibiotic agents; Z88.5 Allergy status to narcotic agent; Z88.8 Allergy status to other drugs, medicaments and biological substances
CPT/HCPCS: 36415; 74176; 76377; 80048; 80076; 81003; 83690; 85025; 96374; 99284

== ENCOUNTER 2020-08-08 04:38 | Emergency (ER) | payer OTHER ==
--- OUTSIDE RECORDS SUMMARY | 2020-08-08 04:40 | XMS REPORT | Continuity of Care Document ---
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 Nicotine 11/12/2018 MH dependence, [place] cigarettes, uncomplicated DYSPHAGIA, Active MH UNSPECIFIED [place] GASTRO-ESOPHAGEAL Active MH REFLUX DISEASE [facility] WITHOUT DIAPHRAGMATIC Active MH HERNIA WITHOUT [facility] OBSTRUCTION Medications Medication Details Route Status Patient Ordering Order Source Instructions Provider Date Oxycodone 5 mg, 5 mL, Inactive Hydrochloride 1 Route: PO, 2017 [place] MG/ML Oral ONCE, Dosing Solution Weight 113.636, kg, Start date: 04/25/18 12:47:00 CDT, Stop date: 04/25/18 12:47:00 CDT Labetalol 10 mg, Route: Inactive IVP, Q5Min, 2017 [facility] Dosing Weight 113.636, kg, PRN Elevated BP, Start date: 04/25/18 11:19:00 CDT, Duration: 5 doses or times, Stop date: Limited # of times Hydralazine 10 mg, Route: Inactive IVP, Q20Min, 2017 [facility] Dosing Weight 113.636, kg, PRN Elevated BP, Start date: 04/25/18 11:19:00 CDT, Duration: 2 doses or times, Stop date: Limited # of times Oxycodone 5 mg, Route: Inactive PO, Drug form: 2017 [facility] TAB, Q4H, Dosing Weight 113.636, [...] 0.1 mg, Route: Inactive SUB-Q, Q6H, 2017 [facility] Dosing Weight 113.636, kg, PRN [...] 0.5 mg, Route: Inactive IVP, Q5Min, 2017 [facility] Dosing Weight 113.636, kg, PRN Pain Score 7-10, Start date: 04/25/18 11:19:00 CDT, Duration: 4 doses or times, Stop date: Limited # of times Meperidine 12.5 mg, Route: Inactive IVP, Q30Min, 2017 [facility] Dosing Weight 113.636, kg, PRN Other -See Comment, For shivering, Start date: 04/25/18 11:19:00 CDT, Duration: 2 doses or times, Stop date: Limited # of times Fentanyl 25 microgram, Inactive Route: IVP, 2017 [facility] Q5Min, Dosing Weight 113.636, kg, PRN Pain Score 4-6, Priority: Routine, Start date: 04/25/18 11:19:00 CDT, Duration: 4 doses or times, Stop date: Limited # of times Flumazenil 0.2 mg, Route: Inactive IVP, PRN, 2017 [facility] Dosing Weight 113.636, kg, PRN [...] 6.25 mg, Route: Inactive IVPB, ONCE, 2017 [facility] Dosing Weight 113.636, kg, PRN Nausea & Vomiting, Start date: 04/25/18 11:19:00 CDT Ondansetron 4 mg, Route: Inactive 04/25/ MH IVP, ONCE, 2017 [facility] Dosing Weight 113.636, kg, PRN [...] 9:44:00 CDT dexamethasone Route: IV, Drug Inactive 04/ M H (ANES) form: [id number], Stop date: [...] IV, Inactive Injection IV Total Volume: 2017 [facility] (ANES) 1000 mL 1,000, Start date: 04/25/18 8:49:00 CDT, Stop date: 04/25/18 9:49:00 CDT heparin sodium, Route: SUB-Q, Inactive porcine 2500 Drug form: INJ, 2017 [place] UNT/ML Injectable ONCALL, Dosing Solution Weight 113.636, kg, Start date: 04/25/18 8:00:00 CDT, Duration: 30 day, Stop date: 05/25/18 7:59:00 CDT Insulin regular 4 unit, Route: Inactive IV, ONCE, 2017 [facility] Dosing Weight 113.636, kg, Start [...] Oral Tablet PO, QPM, # 30 2018 [facility] [Xarelto] tab, 3 Refill(s) Fenofibrate 145 145 mg = 1 tab, Active MG Oral Tablet PO, Bedtime, 0 2018 [place] Refill(s) OLANZapine 10 mg 10 mg = 1 tab, Active oral tablet PO, QPM, 0 2018 Refill(s) 24 HR Divalproex 3 tabs, PO, Active Sodium 500 MG Bedtime, 0 2018 [facility] st Extended Release Refill(s) Tablet [Depakote] pantoprazole 40 40 mg = 1 tab, Active 04/19/ H mg oral enteric PO, BID, 0 2018 [facility] coated tablet Refill(s) pregabalin 150 MG 150 mg = 1 cap, Active Oral Capsule PO, QAM, 0 2018 [facility] t [Lyrica] Refill(s) venlafaxine 150 150 mg = 1 tab, Active mg oral tablet, PO, QAM, # 30 2018 [place] extended release tab, 0 Refill(s) olanzapine 5 MG 5 mg = 1 tab, Active Oral Tablet PO, QAM, 0 2018 Refill(s) pioglitazone 30 30 mg = 1 tab, Active 04/19/ M H mg oral tablet PO, QAM, 0 2018 [facility] Refill(s) Alprazolam 1 MG 1 mg [...] allergy [place] [facility] Active allergy [place] Immunizations No Data Provided for This Section Results Order Name Results Value Reference Date Interpretation Comments [facility] Range BLOOD BANK ABO/Rh B POS 04/19 RESULTS /2017 [facility] BLOOD BANK Antibody Negative 04/19 RESULTS Scrn (04/19/18 3:18 PM) [facility] CHEM PANEL eGFR 56 04/19 Result Comment: [facility] eGFR is calculated using the [...] PANEL AST 21 0 - 37 04/19 [facility] CHEM PANEL Albumin Lvl 3.2 3.5 - 5.0 04/19 [facility] CHEM PANEL ALT 25 0 - 65 04/19 [facility] CHEM PANEL Alk Phos 65 39 - 136 04/19 [facility] CHEM PANEL Bili Total 0.2 0.2 - 1.3 04/19 [facility] CHEM PANEL Calcium Lvl 9.0 8.5 - 10.5 04/19 [facility] CHEM PANEL Total 6.7 6.4 - 8.4 04/19 Protein [facility] CHEM PANEL Glucose Lvl 288 70 - 99 04/19 [facility] CHEM PANEL BUN 18 7 - 22 04/19 [facility] CHEM PANEL Creatinine 1.13 0.50 - 04/19 Lvl 1.40 /2017 [facility] CHEM PANEL Sodium Lvl 143 135 - 145 04/19 [facility] CHEM PANEL Chloride Lvl 105 95 - 109 04/19 [facility] CHEM PANEL CO2 27 24 - 32 09 /2017 [facility] CHEM PANEL Potassium 4.5 3.5 - 5.1 04/19 Lvl /2017 [facility] CHEM PANEL AGAP 15.5 10.0 - 04/19 20.0 /2017 [facility] CHEM PANEL B/C Ratio 16 6 - 25 04/19 [facility] CHEM PANEL Globulin 3.5 2.7 - 4.2 04/19 [facility] CHEM PANEL A/G Ratio 0.9 0.7 - 1.6 04/19 /2017 [place] HEMATOLOGY PTT 25.8 22.9 - 04/19 MH 35.8 /2017 [facility] HEMATOLOGY PT 14.0 12.0 - 04/19 MH 14.7 /2017 [facility] HEMATOLOGY INR 1.08 0.85 - 04/19 MH 1.17 /2017 [facility] HEMATOLOGY Platelet 162 133 - 450 04/19 [facility] HEMATOLOGY MPV 8.7 7.4 - 10.4 04/19 /2017 [facility] HEMATOLOGY MCH 29.7 27.0 - 04/19 MH 31.0 /2017 [facility] HEMATOLOGY RDW 15.0 11.5 - 04/19 14.5 /2017 [facility] HEMATOLOGY MCHC 33.1 32.0 - 04/19 MH 36.0 /2017 [facility] HEMATOLOGY MCV 89.8 80.0 - 04/19 98.0 /2017 [facility] HEMATOLOGY Hct 39.1 36.0 - 04/19 48.0 /2017 [facility] HEMATOLOGY WBC 6.0 3.7 - 10.4 04/19 /2017 [facility] HEMATOLOGY Hgb 12.9 12.0 - 04/19 MH 16.0 /2017 [facility] HEMATOLOGY RBC 4.35 4.20 - 04/19 MH 5.40 /2017 [facility] HEMATOLOGY Eosinophils 0.1 0.0 - 0.5 04/19 MH # /2018 [facility] HEMATOLOGY Neutrophils 3.5 1.5 - 8.1 04/19 MH # /2017 [facility] HEMATOLOGY Monocytes # 0.4 0.0 - 0.8 04/19 [facility] HEMATOLOGY Basophils 0.3 0.0 - 1.0 04/19 [facility] HEMATOLOGY Lymphocytes 1.9 1.0 - 5.5 04/19 MH # /2017 [facility] HEMATOLOGY Eosinophils 2.3 0.0 - 4.0 04/19 /2017 [place] HEMATOLOGY Monocytes 7.4 2.0 - 12.0 04/19 [facility] HEMATOLOGY Lymphocytes 31.6 20.0 - 04/19 MH 40.0 [facility] HEMATOLOGY Segs 58.4 45.0 - 04/19 75.0 [facility] SPECIAL Hgb A1C 10.3 <=5.6 % 04/19 CHEMISTRY /2017 [facility] URINE AND UA <=1.0 0.1 - 1.0 04/19 STOOL Urobilinogen mg/dL [facility] URINE AND UA Nitrite Negative Negative 04/19 STOOL (04/19/18 3:18 PM) /[facility] Leuk Est Negative Negative 04/19 STOOL (04/19/18 3:18 PM) [place] URINE AND UA Sq Epi Few /LPF Few /LPF 04/19 STOOL [place] URINE AND UA WBC 1 0 - 5 04/19 STOOL [place] URINE AND UA Blood Negative Negative 04/19 STOOL (04/19/18 3:18 PM) /2017 [facility] UR[facility]A RBC 5 0 - 2 04/19 STOOL [facility] URINE AND UA pH 5.0 5.0 - 8.0 04/19 STOOL /2017 [place] URINE AND UA Spec Grav 1.025 <=1.030 04/19 STOOL [facility] URINE AND UA Protein Negative Negative 04/19 STOOL mg/dL mg/dL [facility] URINE AND UA Ketones Trace Negative 04/19 [facility] mg/dL mg/dL [facility] URINE AND UA Glucose 500 mg/dL Negative 04/19 STOOL mg/dL [facility] URINE AND UA Turbidity Slight Clear 04/19 STOOL *ABN* /2017 [facility] (04/19/18 3:18 PM) URINE AND UA Color Yellow Yellow 04/19 STOOL *NA* /2017 [facility] (04/19/18 3:18 PM) URINE AND UA Bili Negative Negative 04/19 STOOL *NA* /2017 [facility] (04/19/18 3:18 PM) BLOOD BANK RBC product Product available 04/19 RESULTS (04/19/18 3:00 PM) [place] Pathology Reports No Data Provided for This Section Diagnostic Reports Report Value Date Source Barium Swallow w Barium Swallow w Esophagus Function DX 05/30/20 [facility] Esophagus Function DX COMPARISON: None CLINICAL [...] from the stomach into proximal small bowel. [id number] Chest 2 views DX Patient Name: MANJINDER DODSON 04/19/2018 [facility] : 1965; Age: 52 years Female MR: [id number] Study: Chest 2 views DX Order Time: [...] Recommend CT chest for further characterization. SL: [id number] Barium Swallow w Fluoro Time and Dose: 6.1min/369.66mGy air kerm a 04/17/2018 [facility] Esophagus Function DX Barium Swallow w [...] visualized at the GE junc tion. SL: [id number] Consultation Notes No Data Provided for This [...] 04/25/[address] Respitory Rate 16 04/25/2018 [facility] Respitory Rate 16 04/25/2018 [facility] Respitory Rate 11 04/25/2018 [facility] Heart Rate 73 04/25/2018 [place] Respitory Rate 16 04/23/2018 [place] Systolic (mm Hg) 139 04/23/2018 [place] Diastolic (mm Hg) 86 04/23/[address] Respitory Rate 17 04/23/2018 [place] Systolic (mm Hg) 128 04/23/2018 [place] Diastolic (mm Hg) 76 04/23/[address] Respitory Rate 18 04/23/2018 [place] Systolic (mm Hg) 117 04/23/2018 [place] Diastolic (mm Hg) 68 04/23/[address] [facility] [address] Weight 113.636 04/23/2018 [facility] BMI Calculated 34.94 04/23/2018 [facility] Height 180.34 cm 04/23/2018 [facility] Temperature Oral (F) 97.8 F 04/19/2018 [place] Heart Rate 86 04/19/2018 [facility] BMI Calculated 34.66 04/19/2018 [facility] Weight 112.727 04/19/2018 [facility] Height 180.34 cm 04/19/2018 [facility] Encounters Location Location Encounter Encounter Reason Attending ADM CA Stat Source Details Type Number For Provider Date Date Visit [facility] Outpatient [id number] [facility] 04/17 04/18 [facility] Bedded [id number] [facility] 04/23 04/23 [facility]patient [facility] Inpatient [id number] [facility] 04/25 04/25 [facility] Outpatient [id number] [facility] 05/30 05/31 [facility] Procedures Procedure Code Date Perfomer Comments Source Amputation [id number] [facility] Colonoscopy [id number] [facility] Esophagogastroduodenoscopy [id number] [facility] Hysterectomy [id number] [facility] Resection [id number] [facility] Assessment and Plan Assessment and Plan Date Source Extracted from:Title: Clinical Document 04/25/2018 [facility] Author: Meseret Abbott MD Date: 04/25/18 PATIENT NAME: MARILEE DODSON DATE OF OPERATION/PROCEDURE: 04/25/2018 PREOPERATIVE DIAGNOSIS: 1. Achalasia 2. Regurgitation and dyspahgia POSTOPERATIVE DIAGNOSIS: 1. Achalasia 2. Regurgitation and dyspahgia SURGEON: Meseret Abbott M.D. SEISMIC PLOTTER: [facility] [employer] [facility] PROCEDURES PERFORMED: 1. Laparoscopic [...] At the very apex of the esophageal rico s, one stitch was placed through the [...] History Date Source Social History TypeResponse 04/25/2018 [facility] Smoking Status Current every day smoker; [...]
--- OUTSIDE RECORDS SUMMARY | 2020-08-08 04:42 | XMS REPORT | Continuity of Care Document ---
:1965 Author Organization [facility] t Address [address] [place] [address] Care Team Providers Name Role Phone BANKI Attending Clinician Unavailable Banki Attending Clinician Banki Admitting Clinician Problems Condition Condition Condition Status Onset Resolution Last Treating Co mments Source Name Details Category Date Date Treatment Clinician Date DX: Diagnosis Active 2017-072018-07-11 Mem oria R13.10=DYS -07 12:49:00 l PHAGIA, DX: 00:00: Mario UNSPECIFIE R13.10=DYS 00 D, R10.1 PHAGIA, UNSPECIFIE D, R10.1 Active 05/29/2018 [facility] UNK Diagnosis Active 2018-04-23 Mem oria 04-17 08:18:00 l UNK 00:00: Farnam 00 Active 04/17/2018 [facility] GERD WO Diagnosis Active 2018-04-25 Me moria ESOPHAGITI 04-17 06:46:00 l S GERD WO 00:00: Mario ESOPHAGITI 00 S Active 04/17/2018 [facility] K21.9, Diagnosis Active 2018-04-17 Mem oria R13.10, - 08:54:00 l K44.9 K21.9, 00:00: Farnam R13.10, 00 K44.9 Active 04/04/2018 [facility] History of History of Problem Resolve [...] l d Mario Dysphagia, unspecifie d 12/18/2018 [facility] Gastro-eso Problem 2018-12-18 M emoria phageal 11:14:16 l reflux Farnam disease Gastro-eso without phageal esophagiti reflux s disease without esophagiti s 12/18/2018 [facility] Diaphragma Problem 2018-11-04 M emoria tic hernia 12:20:16 l without Mario 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 11/04/2018 [facility] Gastritis, Problem 2018-11-10 M emoria unspecifie 12:35:52 l d, without Jb n bleeding Gastritis, unspecifie d, without bleeding 11/10/2018 [facility] Chronic Problem 2018-11-10 Tae ivan obstructiv 12:35:52 l e Chronic Farnam pulmonary obstructiv disease, e unspecifie pulmonary d disease, unspecifie d 11/10/2018 [facility] Sleep Problem 2018-11-10 Memor ia apnea, 12:35:52 l unspecifie Sleep Lynsey nn d apnea, unspecifie d 11/10/2018 [facility] Type 2 Problem 2018-11-12 Memor ia diabetes 12:44:11 l mellitus Type 2 Jb n without diabetes complicati mellitus ons without complicati ons 11/12/2018 [facility] 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 Me moria (current) 12:35:52 l use of Long Mario oral term hypoglycem (current) ic drugs use of oral hypoglycem ic drugs 11/10/2018 [facility] Other long Problem 2018-11-10 M emoria term 12:35:52 l (current) Other Jb n drug senior care therapy (current) drug therapy 11/10/2018 [facility] Nicotine Problem 2018-11-12 Mem oria dependence 12:44:11 l , Nicotine Jb n cigarettes dependence , , uncomplica cigarettes noris , uncomplica noris 11/12/2018 [facility] Deep Problem Resolve 2018-12-18 Tae ivan venous d 11:14:16 l thrombosis Deep Jb n (disorder) venous thrombosis (disorder) Resolved Problem 12/18/2018 [facility] Pulmonary Problem Resolve 2018-12-18 M emoria thromboemb d 11:14:16 l olism Mario (disorder) Pulmonary thromboemb olism (disorder) Resolved Problem 12/18/2018 [facility] Anxiety Problem Active 2018-12-18 Tae ivan (finding) 11:14:16 l Anxiety Mario (finding) Active Problem 12/18/2018 [facility] Chronic Problem Active 2018-12-18 Tae ivan obstructiv 11:14:16 l e lung Chronic Farnam disease obstructiv (disorder) e lung disease (disorder) Active Problem 12/18/2018 [facility] Diabetes Problem Active 2018-12-18 Mem oria mellitus 11:14:16 l (disorder) Diabetes He rmann mellitus (disorder) Active Problem 12/18/2018 [facility] Dyspnea on Problem Active 2018-12-18 M emoria exertion 11:14:16 l (finding) Dyspnea Herm ayana on exertion (finding) Active Problem 12/18/2018 [facility] Gastroesop Problem Active 2018-12-18 M emoria hageal 11:14:16 l reflux Mario disease Gastroesop (disorder) hageal reflux disease (disorder) Active Problem 12/18/2018 [facility] Pulmonary Problem Active 2018-12-18 Me moria emphysema 11:14:16 l (disorder) Jb n Pulmonary emphysema (disorder) Active Problem 12/18/2018 [facility] Sleep Problem Active 2018-12-18 Memor ia apnea 11:14:16 l (finding) Sleep Jb n apnea (finding) Active Problem 12/18/2018 [facility] DYSPHAGIA, Diagnosis Active 2018-07-11 Memoria UNSPECIFIE 12:49:00 l D Mario DYSPHAGIA, UNSPECIFIE D Active [facility] GASTRO-ESO Diagnosis Active 2018-04-25 Memoria PHAGEAL 06:46:00 l REFLUX Mario DISEASE GASTRO-ESO WITHOUT PHAGEAL REFLUX DISEASE WITHOUT Active [facility] DIAPHRAGMA Diagnosis Active 2018-04-17 Memoria TIC HERNIA 08:54:00 l WITHOUT Mario OBSTRUCTIO DIAPHRAGMA N TIC HERNIA WITHOUT OBSTRUCTIO N Active [facility] Epigastric Problem 2017-072018-12-18 2018-12-18 Memoria pain 2- 11:14:16 11:14:16 l 04:44: Mario Epigastric 43 pain 07/19/2018 12/18/2018 [facility] Achalasia Problem 2017-072018-11-12 2018-11-12 Memoria of cardia 0-10 12:44:11 12:44:11 l 03:32: Mario Achalasia 00 of cardia 05/01/2018 11/12/2018 [facility] Allergies, Adverse Reactions, Alerts Allergy Allergy [...] Active Memori a ins ins l Mario Alfaro Active Memoria l Mario Family History Family Member Diagnosis Comments Start Date Stop Date Source Mother Family history of [facility] [place] malignant neoplasm Physic ians of breast Social History Smoking Status Start Date Stop Date Source Smoker. current status [facility] [place] unknown Physicians Social History 2018-04-25 13:52:33 [facility] [place] myers Medications Ordered Filled Start Stop Current Ordering Indication Dosage Frequency Signature Comments Components Source Medication Medication Date Date Medication? Clinician (SIG) Name Name Jazmine Lucero Yes Navneet as [facility] 00 [facility] Tramadol Tramadol 2020- No Navneet [address] [facility] HCl HCl 08-29- Call as needed [facility]00 Memoria 00 :00 [facility] Oxycodone 2017-07 No 5 mg, 5 Memor [...] Tae ivan 0-04 Route: l 16:19: IVP, Farnam 00 Q20Min, Dosing Weight 113.636, kg, PRN [...] mine 0-04 Route: l 16:19: IVP, Drug Farnam 00 form: INJ, Q6H, Dosing Weight 113.636, kg, PRN Itching, Start date: 04/25/18 11:19:00 CDT, Duration: 30 day, Stop date: 05/25/18 11:18:00 CDT Naloxone 2017- No 0.1 mg, Memori a 0-04 Route: l 16:19: SUB-Q, Mario 00 Q6H, Dosing Weight 113.636, kg, PRN Itching, Start date: 04/25/18 11:19:00 CDT, Duration: 30 day, Stop date: 05/25/18 11:18:00 CDT Albuterol 2017- No 2.49 mg, Tae ivan 0.83 MG/ML 0-04 Route: l Inhalant 16:19: NEB, Farnam Solution 00 Q20Min, Dosing Weight 113.636, kg, PRN Wheezing, Priority: STAT, Start date: 04/25/18 11:19:00 CDT, Duration: 30 day, Stop date: 05/25/18 11:18:00 CDT Hydromorpho 2017- No 0.5 mg, Mem oria ne 0-04 [...] ivan 0-04 Route: l 16:19: IVP, PRN, Mario 00 Dosing Weight 113.636, kg, PRN Benzodiaze [...] moria e 0-04 Route: l 16:19: IVPB, 00 ONCE, Dosing Weight 113.636, kg, PRN [...] 0-04 Drug form: l 14:44: INJ, ONCE, Farnam 00 Stop date: 04/25/18 9:44:00 CDT acetaminoph 2017-07 No Route: IV, Memoria en (ANES) 0-04 Drug form: l 14:44: INJ, ONCE, Farnam 00 Stop date: 04/25/18 9:44:00 CDT famotidine 2017-07 No Route: IV, M emoria (ANES) 0-04 Drug form: l 14:44: INJ, ONCE, Mario 00 Stop date: 04/25/18 9:44:00 CDT scopolamine 2017-07 [...] CDT, Stop date: 04/25/18 9:49:00 CDT heparin 2017-07 No Route: Memoria sodium, 0-04 SUB-Q, l porcine 13:00: Drug form: Herm ayana 2500 UNT/ML 00 INJ, Injectable ONCALL, Solution Dosing Weight 113.636, kg, Start date: 04/25/18 8:00:00 CDT, Duration: 30 day, Stop date: 05/25/18 7:59:00 CDT Insulin 2017-07 No 4 unit, Memoria regular 0-04 Route: IV, l 12:58: ONCE, Dosing Weight 113.636, kg, Start date: 04/25/18 [...] 2018- Yes 100 units, Tae ivan FlexTouch 04-19 SUB-Q, QAM l 19:59: (Insulin), Mario 00 0 Refill(s) Humalog 2017- Yes 15 unit, Memori a 04-19 SUB-Q, l 19:59: TID-Before Meals, 0 Refill(s) rivaroxaban Yes 20 mg = 1 M emoria 20 MG Oral 04-19 tab, PO, l Tablet 19:59: QPM, # 30 Jb n [Xarelto] 00 tab, 3 Refill(s) Fenofibrate 2018-0 Yes 145 mg = 1 Memoria 145 MG Oral 9-28 tab, PO, l Tablet 19:58: Bedtime, 0 Lynsey nn 00 Refill(s) OLANZapine Yes 10 mg = 1 Me moria 10 mg oral -28 tab, PO, l tablet 19:58: QPM, 0 Farnam 00 Refill(s) 24 HR 2018 Yes 3 tabs, Memoria Divalproex 04-19 PO, [...] cap, PO, l Capsule 19:57: QAM, 0 Farnam [Lyrica] 00 Refill(s) venlafaxine Yes 150 mg [...] tab, PO, l Tablet 19:55: QAM, 0 Farnam [Xanax] 00 Refill(s) metFORMIN Yes 1,000 mg = Me moria 500 mg oral 28 2 tab, PO, l tablet, 19:55: BID, 0 Farnam extended 00 Refill(s) release Olanzapine Olanzapine Yes Navneet [address] [facility]06 Call [facility] - 00:00: Memoria 00 l [...] Oral MG Oral ity of Capsule Capsule [place] Physici ans Pantoprazol Pantoprazol Yes R.N. U nivers e Sodium 40 e Sodium 40 i ty of MG Oral MG Oral [place] Tablet Tablet Physici Delayed Delayed ans Release Release [facility] Yes R.N. Univers 500 MG Oral 500 MG Oral i ty of Tablet Tablet [place] Delayed Delayed Physici Release Release ans OLANZapine OLANZapine Yes R.N. Uni vers 10 MG Oral 10 MG Oral ity of Tablet Tablet [place] Physici ans Fenofibrate Fenofibrate Yes R.N. U nivers 145 MG Oral 145 MG Oral i ty of Tablet Tablet [place] Physici ans Xarelto 20 Xarelto 20 Yes R.N. Uni vers MG Oral MG Oral ity of Tablet Tablet [place] Physici ans HumaLOG HumaLOG Yes R.N. Univers SOLN SOLN [facility] [place] Physici ans Tresiba Tresiba Yes R.N. Univers [...] [facility] Yes Navneet [address] [facility] Omeprazole Omeprazole Yes Navneet (Prior [facility] Auth#:0000 [facility] - [id number]) [facility] atorvastati atorvastati [...] Yes Navneet (Prior [facility] Auth[facility]0000 [facility] - [id number]) [facility] Humalog Humalog [...] Source BP Systolic 2018-05-30 138 mm[Hg] Location: [facility] 14:10:00 Position: [place] Physician s Sitting BP Diastolic 2018-05-30 91 mm[Hg] Location: [facility] 14:10:00 Position: [place] Physician s Sitting Height 2018-05-30 71 [in_us] [facility] 14:10:00 [place] Physician s Weight 2018-05-30 249.375 [lb_av] University o f 14:10:00 [place] Physician s Body Mass Index 2018-05-30 34.78 kg/m2 University o Calculated 14:10:00 [place] Physician s Temperature 2018-05-30 98 [degF] Method: Oral [facility] 14:10:00 [place] Physician s Heart Rate 2018-05-30 80 /min Quality: Normal University o f 14:10:00 [place] Physician s Respiration Rate 2018-05-30 18 /min Quality: Normal Universi ty of 14:10:00 [place] Physician s O2 SAT 2018-05-30 97 % Source: [facility] 14:10:00 [place] Physician s BP Systolic 2018-05-01 126 mm[Hg] Location: [facility] 11:46:00 Position: [place] Physician s Sitting BP Diastolic 2018-05-01 75 mm[Hg] Location: [facility]; [facility] 11:46:00 Position: [place] Physician s Sitting [...] s O2 SAT 2018-05-01 95 % Source: [facility] 11:46:00 [place] Physician s Systolic (mm [...] 2018-04-23 [facility] Kaushik ermann 13:15:00 Weight 2018-04-23 Memorial Jb n 12:17:00 BMI Calculated 2018-04-23 [facility] Herm ayana 12:17:00 Height 2018-04-23 180.34 cm Memorial Jb n 12:17:00 Temperature Oral 2018-04-19 97.8 F Lee [place] rmann (F) 19:59:00 Heart Rate 2018-04-19 Lee Marshallan n 19:59:00 BMI Calculated 2018-04-19 [facility] Herm ayana 19:52:00 Weight 2018-04-19 Lee Marshallan n 19:52:00 Height 2018-04-19 180.34 cm Lee Marshallan n 19:52:00 BP Systolic 2018-04-17 126 mm[Hg] Location: [facility] 09:58:00 Position: [place] Physician s Sitting BP Diastolic 2018-04-17 81 mm[Hg] Location: [facility] 09:58:00 Position: [place] Physician s Sitting Height 2018-04-17 71 [in_us] University 09:58:00 [place] Physician s Weight 2018-04-17 248.375 [lb_av] University o f 09:58:00 [place] Physician s Body Mass Index 2018-04-17 34.64 kg/m2 University o f Calculated 09:58:00 [place] Physician s Temperature 2018-04-17 98.3 [degF] Method: Oral University 09:58:00 [place] Physician s Heart Rate 2018-04-17 83 /min Quality: Normal University o f 09:58:00 [place] Physician s Respiration Rate 2018-04-17 18 /min Quality: Normal [facility] 09:58:00 [place] Physician s O2 SAT 2018-04-17 95 % Source: [facility] 09:58:00 [place] Physician s Procedures Procedure Date / Time Performing Source Performed Clinician History of Appendectomy [facility] Physicians History of Neck surgery [facility]i ty [facility] Physicians History of Hysterectomy [facility] Physicians History of Colon Surgery [facility] Physicians History of Back Surgery [facility]i ty [facility] Physicians History of Heller Myotomy Univ myray of Laparoscopic Approach [place] [facility] Amputation [facility] Farnam Colonoscopy [facility] Mario Esophagogastroduodenoscopy Memor ial Farnam Resection [facility] Encounters Start End Encounter Admission Attending Care Care Encounter Source Date/Time Date/Time Type Type Clinicians Facility Department ID 2020-08-06 2020-08-06 [id number] 2020-05-20 2020-05-20 [facility] [id number] [facility] 2020-05-12 2020-05-12 [facility] [id number] [facility] 2020-04-16 2020-04-16 [facility] [id number] [facility] 2020-02-18 2020-02-18 [facility] [id number] [facility] 08:00[facility]00 08:00:00 [facility] 2020-02-09 2020-02-09 [facility] [id number] [facility] 11:53:00 11:53:00 [facility] 2020-01-27 2020-01-27 [facility] [id number] [facility] 13:00:00 13:00:00 [facility] 2020-01-21 2020-01-21 [facility] [id number] 09:30:00 09:30:00 [facility] 2020-01-14 2020-01-14 [facility] [id number] [facility] [address] 09:18:00 09:18:00 [facility] 2020-01-08 2020-01-08 [facility] [id number] [facility] 14:15:00 14:15:00 [facility] 2019-12-04 2019-12-04 [facility] [id number] [facility] [address] 11:00:00 11:00:00 [facility] 2019-11-20 2019-11-20 [facility] [id number] [facility] 16:22:00 16:22:00 [facility] 2019-10-06 2019-10-06 [facility] [id number] [address] 11:00:00 11:00:00 [facility] 2019-09-29 2019-09-29 [facility] [id number] 13:10:00 13:10:00 [facility] 2019-09-11 2019-09-11 [facility] [id number] [facility] 13:30:00 13:30:00 [facility] 2019-09-01 2019-09-01 [facility] [id number] [facility] 09:16:00 09:16:00 [facility] 2019-08-29 2019-08-29 [facility] [id number] [address] 08:18:00 08:18:00 [facility] 2019-08-22 2019-08-22 [facility] [id number] 09:00:00 09:00:00 [facility] 2019-08-20 2019-08-20 [facility] [id number] 15:48:00 15:48:00 [facility] 2019-08-18 2019-08-18 [facility] [id number] 12:00:00 12:00:00 [facility] 2019-08-06 2019-08-06 [facility] [id number] 13:30:00 13:30:00 [facility] 2019-08-04 2019-08-04 [facility] [id number] 11:00:00 11:00:00 [facility] 2019-07-29 2019-07-29 [facility] [id number] 16:13:00 16:13:00 [facility] 2019-07-21 2019-07-21 [facility] [id number] 11:09:00 11:09:00 [facility] 2019-07-10 2019-07-10 [facility] [id number] 13:30:00 13:30:00 t [facility] 2019-06-12 2019-06-12 [facility] [id number] 11:37:00 11:37:00 t [facility] 2019-06-09 2019-06-09 [facility] [id number] 14:59:00 14:59:00 t [facility] 2019-06-09 2019-06-09 [facility] [id number] 08:00:00 08:00:00 t [facility] 2019-05-28 2019-05-28 [facility] [id number] [facility] 09:16:00 09:16:00 t [facility] 2019-05-27 2019-05-27 [facility] [id number] [facility] 15:03:00 15:03:00 [facility] 2019-05-22 2019-05-22 [facility] [id number] [facility] 13:30:00 13:30:00 t [facility] 2019-05-08 2019-05-08 [facility] [id number] 09:55:00 09:55:00 [facility] 2019-05-06 2019-05-06 [facility] [id number] 14:30:00 14:30:00 [facility] 2019-05-02 2019-05-02 [facility] [id number] 10:23:00 10:23:00 t [facility] Clinics 2019-04-28 2019-04-28 [facility] [id number] 08:46:00 08:46:00 [facility] 2019-04-22 2019-04-22 Outpatient Timmy [place] [id number] 08:00:00 08:00:00 [facility] 2019-04-17 2019-04-17 Outpatient Timmy [place] [id number] [facility] 13:30:00 13:30:00 t [facility] 2019-04-14 2019-04-14 Outpatient Timmy [place] [id number] [facility] 13:21:00 13:21:00 t Urgent Urgent Care [facility] - Care [facility] 2019-04-14 2019-04-14 Outpatient Timmy [place] [id number] [facility] 11:15:00 11:15:00 t Urgent Urgent Care [facility] - Care Clinic [facility] 2018-07-31 2018-07-31 Appointmen CINDY ABBOTT [id number] Univers 09:15:00 09:15:00 t; NABOR ABBOTT it y of FARZANEH, M.D. [place] M.D. [facility] 2018-05-30 2018-05-30 Outpatient Hugo [facility] [id number] 13:00:00 23:59:00 Nabor 03 2018-05-30 2018-05-30 Appointmen CINDY ABBOTT [facility] [id number] Univers 14:00:00 14:00:00 t; NABOR ABBOTT cic and Antonieta M.D. [facility] 2018-05-01 2018-05-01 AppointCINDY Montes [facility] [id number] Univers 11:15:00 11:15:00 t; NABOR ABBOTT cic and it y of [place], M.D. Vascular [facility] ans 2018-04-25 2018-04-25 Outpatient SHARONDA Abbott [facility] [id number] 06:46:00 13:58:00 Nabor 2018-04-23 2018-04-23 Outpatient SHARONDA Abbott [facility] [id number] 05:57:00 09:10:00 Nabor 2018-04-17 2018-04-17 Outpatient SHARONDA Abbott [facility] [id number] 08:16:00 23:59:00 Nabor 2018-04-17 2018-04-17 Appointmen HUGOCINDY Cardiothetna [id number] [facility] 09:00:00 09:00:00 t; NABOR ABBOTT cic and lenore y karuna TOMLIN M.D. [facility] [place] [facility].D Surgery at [facility] ans Results Test Description Test Time Test Comments Results Result Sourc e Comments BLOOD BANK RESULTS 2018-04-19 Negative Memori al 20:18:00 (04/19/18 3:18 Mario PM) CHEM PANEL 2018-04-19 56 [facility] 20:18:00 Farnam CHEM PANEL 2018-04-19 21 Memorial 20:18:00 Farnam CHEM PANEL 2018-04-19 3.2 Memorial 20:18:00 Mario CHEM PANEL 2018-04-19 25 [facility] 20:18:00 Farnam CHEM PANEL 2018-04-19 65 [facility] 20:18:00 Farnam CHEM PANEL 2018-04-19 0.2 Memorial 20:18:00 Farnam CHEM PANEL 2018-04-19 9.0 Memorial 20:18:00 Mario CHEM PANEL 2018-04-19 6.7 Memorial 20:18:00 Mario CHEM PANEL 2018-04-19 288 [facility] 20:18:00 Mario CHEM PANEL 2018-04-19 18 [facility] 20:18:00 Mario CHEM PANEL 2018-04-19 1.13 [facility] 20:18:00 Mario CHEM PANEL 2018-04-19 143 [facility] 20:18:00 Farnam CHEM PANEL 2018-04-19 105 [facility] 20:18:00 Farnam CHEM PANEL 2018-04-19 27 [facility] 20:18:00 Farnam CHEM PANEL 2018-04-19 4.5 Memorial 20:18:00 Farnam CHEM PANEL 2018-04-19 15.5 Memorial 20:18:00 Farnam CHEM PANEL 2018-04-19 20:18:00 Test Item Value Reference Range Interpretation Comme nts B/C Ratio (test code = B/C Ratio) 16 1 6-25 [facility] HermannCHEM [id number] 20:18:003.5[facility] HermannCHEM PANEL 2018-04-19 20:18:00 Test Item Value Reference Range Interpretation Comments A/G Ratio (test code = A/G Ratio) 0.9 1 0.7-1.6 [facility] [id number] 20:18:00 Test Item Value Reference Range Interpretation Comments PTT (test code = PTT) 25.8 s 22.9-35.8 [facility] [id number] 20:18:00 Test Item Value Reference Range Interpretation Comments PT (test code = PT) 14.0 s 12.0-14.7 [id number] 20:18:00 Test Item Value Reference Range Interpretation Comments INR (test code = INR) 1.08 1 0.85-1.17 [facility] [id number] 20:18:85608Jchbxhgp HermannHEMATOLOGY 2018-04-19 20:18:008.7[facility] [id number] 20:18:00 Test Item Value Reference Range Interpretation Comments MCH (test code = MCH) 29.7 pg 27.0-31.0 [facility] [id number] 20:18:0015.0[facility] 2018-04-19 20:18:0033.1[facility] XoxweinZUKWORNQXI9581-39-99 20:18:0089.8[facility] TmkkyfuHIROFZMEKF3116-13-68 20:18:0039.1[facility] McjxqohDKLXMCBJSN5424-07-40 20:18:006.0[facility] NvxndyeZYTMSFHMEX9431-62-77 20:18:0012.9[facility] SJICGIVDLS1921-57-37 20:18:004.35[facility] XfqjmlhRKJYYAWIEE5794-98-47 20:18:00 0.1[facility] JwympjfCHAUIYTEGM3093-20-46 20:18:003.5[facility] 2018-04-19 20:18:000.4[facility] WjxpebqNLUUKEAVBX4978-29-79 20:18:000.3[facility] HkmjdawQKVZGEETQD8237-55-05 20:18:001.9[facility] NfphgvaFHZXGACPTU3337-73-40 20:18:002.3[facility] CytdybtUCWBUJXQMQ8749-05-23 20:18:007.4[facility] YITYOVMBLM3956-52-68 20:18:0031.6[facility] JybbldpHWXMXAVNCG5819-26-08 20:18:00 58.4[facility]annSPECIAL QPATWIYAG7136-54-68 20:18:0010.3[facility] URINE AND VPMSG9179-04-35 20:18:00Negative (04/19/18 3:18 PM)[facility]INE AND [id number] 20:18:00Negative (04/19/18 3:18 PM)[facility]INE AND SBEPU7028-15-39 20:18:001[facility] [id number] 20:18:00Negative (04/19/18 3:18 PM)[facility] [id number] 20:18:005[facility] [id number] 20:18:00 Test Item Value Reference Range Interpretation Comments UA pH (test code = UA pH) 5.0 1 5.0-8.0 [facility] [id number] 20:18:00 Test Item Value Reference Range Interpretation Comments UA Spec Grav (test code = UA Spec 1.025 1 Grav) [facility] [id number] 20:18:00Slight *ABN*(04/19/18 3:18 PM) [facility] [id number] 20:18:00Yellow *NA*(04/19/18 3:18 PM) [facility] [id number] 20:18:00Negative *NA*(04/19/18 3:18 PM) [facility] [id number] 20:00:00Product available (04/19/18 3:00 PM)Lee Martin
--- OUTSIDE RECORDS SUMMARY | 2020-08-08 04:42 | XMS REPORT ---
:1965 Author Organization [facility] Address [address] [place] [address] Care Team Providers Name Role Phone Navneet Call Unavailable [phone] PROBLEMS Type Condition ICD9-CM GST67-VJ Onset Condition SNOMED Code Notes Code Code Dates Status Problem Acute pain of M25.561 Active 61182753 right knee Problem Closed displaced S82.021K Active 377493945 longitudinal fracture of right patella with nonunion, subsequent encounter Problem Primary M17.11 Active 087336295550462 osteoarthritis of right knee Problem Primary M17.12 Active 687079489106285 osteoarthritis of left knee Problem Arthritis of M17.11 Active 6309501548402403 knee, right Problem Arthritis of M17.12 Active 5003370639605711 knee, left ALLERGIES Allergen (clinical drug Drug/Non Drug Allergy Reaction Allergy Type Onset Date Status ingredient) documented on EMR penicillin Unknown Drug Allergy Active amoxicillin Amoxicillin([facility] Unknown Drug Allergy Active Code:[address]-41) ENCOUNTERS from 1965 to 2020-08-06 Encounter Location Date Provider Diagnosis [facility] [address] Jul, 2020 Navneet Call Pain in joint of right [facility] [address] knee M25.561 ; Primary [place], [place] osteoarthritis of right [address] knee M17.11 and Closed displaced longi tudinal fracture of rig [...] an other tobacco user? Yes vape zacarias ce REASON FOR REFERRAL No Information VITAL SIGNS No information MEDICATIONS Medication SIG (Take, Route, Notes Start Date End Date Status Frequency, Duration) Olanzapine 10 MG 1 tablet Orally Once a Feb, Active day for 30 day(s) Furosemide 20 MG (Prior Active Auth#:[id number]) Oral for 30 Metformin HCl 500 MG 1 tablet with a meal Active Orally Once a day for 30 day(s) Tramadol HCl 50 MG 1 tablet as needed Aug, Not-Taking Orally Once a day Lidocaine-Prilocaine Acti ve atorvastatin 20mg 1 tablet by mouth at Active bedtime Triamcinolone Acetonide A ctive Depakote 500 MG 3 TABLETS Orally AT Active NIGHT Acetic Acid Not-Taking Diclofenac Sodium Not-Rk ing Humalog KwikPen 100 as directed Acti ve UNIT/ML Subcutaneous Tresiba FlexTouch 200 as directed Ac tive UNIT/ML Subcutaneous Trulicity 1.5MGM Active Voltaren 1 % as directed Active Transdermal apply small amount to affected area QID Eliquis 5 MG as directed Orally Acti ve Omeprazole 20 MG (Prior Active Auth#:[id number]) Oral for 30 BuPROPion HBr 150 Active Venlafaxine HCl ER 75 MG Orally Not-Taking Lyrica 150 MG Orally Active PROCEDURES No Information RESULTS No Results REASON FOR VISIT xray MEDICAL (GENERAL) HISTORY Type Description Date Medical [...] STATUS No Information ASSESSMENTS Encounter Date Diagnosis Assessment Notes Treatment Notes Treatm ent Clinical Notes Jul, Pain in joint of right knee (ICD-10 - M25.561) Jul, Primary osteoarthritis of right knee (ICD-10 - M17.11) Jul, 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, subsequent encounter (ICD-10 - S82.021K) PLAN OF TREATMENT Medication Medication Name Sig Start Date Stop Date Voltaren 1 % as directed Transdermal apply small amount to affected area QID Treatment Notes Test Name Order Date Knee Right 3 View 2020-08-06 Next Appt Details Provider Name:Navneet Call, 2020-08-12 0 1:30:00 PM, [address], [place], [address], Insurance Providers Payer Name Payer Address Payer Insured Patient Coverage Cover age Phone Name Relationship to Start Date End Date Insured HP [address] [phone] Renetta Ramsay [facility] [address] [id number] MEDICARE Attn Part B [id number] Renetta Ramsay [facility] Claims [phone] [facility] [address]
[2020-08-08] MEDS ORDERED: KETOROLAC 30 MG/ML INJ ONE (05:31)
--- NOTE | 2020-08-08 06:29 | EDPHYS ---
Physician Documentation [facility] Name: Renetta Ramsay Age: 54 yrs Sex: Female : 1965 Arrival Date: 08/08/2020 Time: 04:40 Bed 17 Private MD: ED Physician Xavier Henriquez HPI: 08/08 05:14 This 54 yrs old Female presents to ER via Ambulatory with complaints of Arm mh7 Pain. 05:14 The patient or guardian complains of pain, that is chronic. The complaints affect the mh7 Right Forearm. Context: The problem was sustained on a street or driveway, resulted from a fall, while walking. Onset: The symptoms/episode began/occurred 10 month(s) ago. Treatment prior to arrival includes: no previous treatment. Modifying factors: The symptoms are alleviated by nothing. the symptoms are aggravated by movement. Associated signs and symptoms: Pertinent negatives: decreased range of motion, deformity, erythema, fever, nausea, numbness, swelling, tingling, vomiting, warmth, weakness. 05:18 Severity of symptoms: At their worst the symptoms were moderate, 10 months ago, in the [facility] emergency department the symptoms have improved, mildly. The patient has experienced similar episodes in the past, chronically. 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 N/A - Hysterectomy lp1 Historical: - Allergies: 04:57 Amoxicillin; lp1 04:57 Talwin; lp1 04:57 ARIPIPRAZOLE; lp1 04:57 PENICILLINS; lp1 04:57 pentazocine lactate; lp1 - Home Meds: 04:57 atorvastatin 40 mg Oral tab 1 tab nightly [Active]; Depakote 500 mg Oral TbEC 3 tabs lp1 nightly [Active]; Eliquis 5 mg Oral tab 1 tab 2 times per day [Active]; furosemide 20 mg Oral tab 1 tab once daily [Active]; Humalog 100 unit/mL Sub-Q crtg 15 unit after meals and before bedtime [Active]; Lyrica 150 mg Oral 3 times per day [Active]; metformin 500 mg Oral Tb24 1 tab 2 times per day [Active]; olanzapine 5 mg Oral tab once daily [Active]; omeprazole 20 mg Oral cpDR 1 cap once daily [Active]; Tresiba FlexTouch U-100 100 unit/mL (3 mL) subcutaneous inpn 90 unit daily [Active]; Trulicity 0.75 mg/0.5 mL subcutaneous pnij 0.5 mL once wkly [Active]; venlafaxine 75 mg Oral cp24 once daily [Active]; - PMHx: 04:57 ADD/ADHD; Bipolar disorder; Chronic pain; Depression; Diabetes - NIDDM; DVT; Esophageal lp1 stricture; High Cholesterol; Hypertension; osteomyelitis; Pancreatitis; - PSHx: 04:57 Hysterectomy; colon resection; Appendectomy; lp1 - Immunization history:: Adult Immunizations up to date. - Social history:: Smoking status: Patient reports the use of cigarette tobacco products, smokes one-half pack cigarettes per day. ROS: 05:18 Constitutional: Negative for fever, chills, and weight loss, Eyes: Negative for injury, mh7 pain, redness, and discharge, ENT: Negative for injury, pain, and discharge, Neck: Negative for injury, pain, and swelling, Cardiovascular: Negative for chest pain, palpitations, and edema, Respiratory: Negative for shortness of breath, cough, wheezing, and pleuritic chest pain, Abdomen/GI: Negative for abdominal pain, nausea, vomiting, diarrhea, and constipation, Back: Negative for injury and pain, : Negative for injury, bleeding, discharge, and swelling, Skin: Negative for injury, rash, and discoloration, Neuro: Negative for headache, weakness, numbness, tingling, and seizure, Psych: Negative for depression, anxiety, suicide ideation, homicidal ideation, and hallucinations, Allergy/Immunology: Negative for hives, rash, and allergies, Endocrine: Negative for neck swelling, polydipsia, polyuria, polyphagia, and marked weight changes, Hematologic/Lymphatic: Negative for swollen nodes, abnormal bleeding, and unusual bruising. Exam: 05:18 Constitutional: This is a well developed, well nourished patient who is awake, alert, mh7 and in no acute distress. Head/Face: Normocephalic, atraumatic. Eyes: Pupils equal round and reactive to light, extra-ocular motions intact. Lids and lashes normal. Conjunctiva and sclera are non-icteric and not injected. Cornea within normal limits. Periorbital areas with no swelling, redness, or edema. Neck: Trachea midline, no thyromegaly or masses palpated, and no cervical lymphadenopathy. Supple, full range of motion without nuchal rigidity, or vertebral point tenderness. No Meningismus. Chest/axilla: Normal chest wall appearance and motion. Nontender with no deformity. No lesions are appreciated. Cardiovascular: Regular rate and rhythm with a normal S1 and S2. No gallops, murmurs, or rubs. Normal PMI, no JVD. No pulse deficits. Respiratory: Lungs have equal breath sounds bilaterally, clear to auscultation and percussion. No rales, rhonchi or wheezes noted. No increased work of breathing, no retractions or nasal flaring. Abdomen/GI: Soft, non-tender, with normal bowel sounds. No distension or tympany. No guarding or rebound. No evidence of tenderness throughout. Back: No spinal tenderness. No costovertebral tenderness. Full range of motion. Skin: Warm, dry with normal turgor. Normal color with no rashes, no lesions, and no evidence of cellulitis. 05:18 Neuro: Awake and alert, GCS 15, oriented to person, place, time, and situation. Cranial nerves II-XII grossly intact. Motor strength 5/5 in all extremities. Sensory grossly intact. Cerebellar exam normal. Normal gait. Psych: Awake, alert, with orientation to person, place and time. Behavior, mood, and affect are within normal limits. 05:18 Musculoskeletal/extremity: Extremities: noted in the Dorsal aspect of Right Forearm: pain, tenderness, ROM: intact in all extremities, Circulation is intact in all extremities. Pulses: are normal with no appreciated deficits, Perfusion: the patient is normally perfused throughout, Perfusion: the extremity is normally perfused throughout, Sensation intact. Compartment Syndrome exam of affected extremity: is normal. no numbness, no tingling, no sensation deficit, no palor, no weak pulses, Joints: All joints appear normal with full range of motion. Weight bearing: able to fully bear weight, without difficulty, Tendon exam: specific tendon testing normal through active and passive range of motion DVT Exam: no swelling, negative Homans' sign noted on exam, no appreciated bluish discoloration, no erythema, no increased warmth. Vital Signs: 04:58 BP 155 / 84; Pulse 85; Resp 18; Pulse Ox 99% on R/A; Weight 122.47 kg (R); Height 5 ft. lp1 10 in. (177.80 cm); Pain 9/10; 06:00 BP 145 / 83; Pulse 73; Resp 18; Pulse Ox 98% on R/A; Pain 9/10; fu 06:00 BP 132 / 80; Pulse 71; Resp 18; Pulse Ox 97% ; fu 04:58 Body Mass Index 38.74 (122.47 kg, 177.80 cm) lp1 MDM: 06:26 Differential diagnosis: contusion, abrasion, Musculoskeletal pain. Data reviewed: vital [facility] signs, nurses notes, old medical records. Data interpreted: Pulse oximetry: on room air is 97 %. Interpretation: normal. Counseling: I had a detailed discussion with the patient and/or guardian regarding: the historical points, exam findings, and any diagnostic results supporting the discharge/admit diagnosis, the need for outpatient follow up, to return to the emergency department if symptoms worsen or persist or if there are any questions or concerns that arise at home. Response to treatment: the patient's symptoms have resolved after treatment, the patient's blood pressure is in an acceptable range, mental status has returned to baseline, the patient no longer shows bradycardia, the patient is not short of breath, the patient is not tachycardic, the patient's pain is gone, the patient's temperature has normalized. 06:28 Patient medically screened. [facility] Administered Medications: 05:45 Drug: TORadol 60 mg Route: IM; Site: right gluteus; fu 06:14 Follow up: Response: Pain is decreased fu Disposition: 08/08/20 06:28 Discharged to Home. Impression: Right Forearm Pain-Chronic. - Condition is Stable. - Discharge Instructions: Musculoskeletal Pain. - Prescriptions for ketorolac 10 mg Oral tablet - take 1 tablet by ORAL route every 8 hours As needed not to exceed 40 mg in 24hrs; 12 tablet. - Medication Reconciliation Form, Thank You Letter, Antibiotic Education, Prescription Opioid Use form. - Follow up: Private Physician; When: 1 - 2 days; Reason: Worsening of condition, Recheck today's complaints, Continuance of care, Re-evaluation by your physician. - Problem is chronic. - Symptoms have improved. Signatures: Daria Stuart RN RN lp1 Florencio Hsu RN RN Xavier Henriquez MD MD [facility] Corrections: (The following items were deleted from the chart) 06:35 06:28 08/08/2020 06:28 Discharged to Home. Impression: Right Forearm Pain-Chronic. fu Condition is Stable. Forms are Medication Reconciliation Form, Thank You Letter, Antibiotic Education, Prescription Opioid Use. Follow up: Private Physician; When: 1 - 2 days; Reason: Worsening of condition, Recheck today's complaints, Continuance of care, Re-evaluation by your physician. Problem is chronic. Symptoms have improved. mh7
--- NOTE | 2020-08-08 06:29 | ER ---
Nurse's Notes [facility] Name: Renetta Ramsay Age: 54 yrs Sex: Female : 1965 Arrival Date: 08/08/2020 Time: 04:40 Bed 17 [facility] MD: Diagnosis: Right Forearm Pain-Chronic Presentation: 08/08 04:58 Chief complaint: Patient states: Reports right arm pain, painful to touch forearm x 10 lp1 months; Denies any recent injury; states pain worsening to right arm. Coronavirus screen: Client denies travel out of the [place] in the last 14 days. At this time, the client does not indicate any symptoms associated with coronavirus-19. Ebola Screen: No symptoms or risks identified at this time. Initial Sepsis Screen: Does the patient meet any 2 criteria? No. Patient's initial sepsis screen is negative. Does the patient have a suspected source of infection? No. Patient's initial sepsis screen is negative. Risk Assessment: Do you want to hurt yourself or someone else? Patient reports no desire to harm self or others. Onset of symptoms was August 08, 2020. 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 LMP N/A - Hysterectomy lp1 Historical: - Allergies: 04:57 Amoxicillin; lp1 04:57 Talwin; lp1 04:57 ARIPIPRAZOLE; lp1 04:57 PENICILLINS; lp1 04:57 pentazocine lactate; lp1 - Home Meds: 04:57 atorvastatin 40 mg Oral tab 1 tab nightly [Active]; Depakote 500 mg Oral TbEC 3 tabs lp1 nightly [Active]; Eliquis 5 mg Oral tab 1 tab 2 times per day [Active]; furosemide 20 mg Oral tab 1 tab once daily [Active]; Humalog 100 unit/mL Sub-Q crtg 15 unit after meals and before bedtime [Active]; Lyrica 150 mg Oral 3 times per day [Active]; metformin 500 mg Oral Tb24 1 tab 2 times per day [Active]; olanzapine 5 mg Oral tab once daily [Active]; omeprazole 20 mg Oral cpDR 1 cap once daily [Active]; Tresiba FlexTouch U-100 100 unit/mL (3 mL) subcutaneous inpn 90 unit daily [Active]; Trulicity 0.75 mg/0.5 mL subcutaneous pnij 0.5 mL once wkly [Active]; venlafaxine 75 mg Oral cp24 once daily [Active]; - PMHx: 04:57 ADD/ADHD; Bipolar disorder; Chronic pain; Depression; Diabetes - NIDDM; DVT; Esophageal lp1 stricture; High Cholesterol; Hypertension; osteomyelitis; Pancreatitis; - PSHx: 04:57 Hysterectomy; colon resection; Appendectomy; lp1 - Immunization history:: Adult Immunizations up to date. - Social history:: Smoking status: Patient reports the use of cigarette tobacco products, smokes one-half pack cigarettes per day. Screenin:59 Abuse screen: Denies threats or abuse. Denies injuries from another. Nutritional lp1 screening: No deficits noted. Tuberculosis screening: No symptoms or risk factors identified. Fall Risk None identified. Assessment: 05:08 General: Appears in no apparent distress. Behavior is calm, cooperative, appropriate fu for age, Denies fever, feeling ill, fatigue, chills. Pain: Complains of pain in right arm Pain does not radiate. Pain currently is 9 out of 10 on a pain scale. Quality of pain is described as throbbing, stinging, Pain began 10 months ago worst today Is continuous. Neuro: Level of Consciousness is awake, alert, obeys commands, Oriented to person, place, time, situation, Moves all extremities. Gait is steady, Speech is normal, Facial symmetry appears normal. Cardiovascular: Denies chest pain, nausea, syncope, vomiting. Respiratory: Airway is patent Respiratory effort is even, unlabored, Respiratory pattern is regular. GI: No signs and/or symptoms were reported involving the gastrointestinal system. : No signs and/or symptoms were reported regarding the genitourinary system. EENT: No signs and/or symptoms were reported regarding the EENT system. Derm: Skin is intact. Musculoskeletal: No signs and/or symptoms reported regarding the musculoskeletal system. 05:44 Reassessment: Verbal order from , Toradol 60mg IMx1. fu 06:04 Reassessment: Patient and/or family updated on plan of care and expected duration. Pain fu level reassessed. Patient is alert, oriented x 3, equal unlabored respirations, skin warm/dry/pink. Vital Signs: 04:58 BP 155 / 84; Pulse 85; Resp 18; Pulse Ox 99% on R/A; Weight 122.47 kg (R); Height 5 ft. lp1 10 in. (177.80 cm); Pain 9/10; 06:00 BP 145 / 83; Pulse 73; Resp 18; Pulse Ox 98% on R/A; Pain 9/10; fu 06:00 BP 132 / 80; Pulse 71; Resp 18; Pulse Ox 97% ; fu 04:58 Body Mass Index 38.74 (122.47 kg, 177.80 cm) lp1 ED Course: 04:40 Patient arrived in ED. cl3 04:59 Triage completed. lp1 04:59 Arm band placed on left wrist. lp1 05:02 Florencio Hsu, RN is Primary Nurse. fu 05:04 Xavier Henriquez MD is Attending Physician. [facility] [place] 05:11 Call light in reach. Pulse ox on. NIBP on. fu 06:28 No provider procedures requiring assistance completed. Patient did not have IV access fu during this emergency room visit. Administered Medications: 05:45 Drug: TORadol 60 mg Route: IM; Site: right gluteus; fu 06:14 Follow up: Response: Pain is decreased fu Outcome: 06:[address] . [facility] 06:29 Discharged to home ambulatory. fu 06:29 Condition: good 06:29 Discharge instructions given to patient, Instructed on discharge instructions, Demonstrated understanding of instructions, Prescriptions given X 1. 06:35 Patient left the ED. fu Signatures: Daria Stuart, RN MARK [facility] Florencio Hsu, RN MARK Yonatan Veliz 3 Xavier Henriquez MD MD [facility] [place]
[2020-08-08 06:43] VITALS: BP 132/80; O2SAT 97
== END 2020-08-08 06:35 | disposition home or self-care (01) ==
LOC: ER 04:38
DX: M79.631 Pain in right forearm (principal); F17.210 Nicotine dependence, cigarettes, uncomplicated; Z88.0 Allergy status to penicillin; Z88.1 Allergy status to other antibiotic agents; Z88.5 Allergy status to narcotic agent; Z88.8 Allergy status to other drugs, medicaments and biological substances
CPT/HCPCS: 96372; 99283

== ENCOUNTER 2020-10-11 07:57 | Inpatient (IN) | payer OTHER ==
--- OUTSIDE RECORDS SUMMARY | 2020-10-11 08:02 | XMS REPORT | Continuity of Care Document ---
:1965 Author Organization [facility] t Address [address] [place] [address] Care Team Providers Name Role Phone BANKI Attending Clinician Unavailable Banki Attending Clinician Banki Admitting Clinician Problems Condition Condition Condition Status Onset Resolution Last Treating Co mments Source Name Details Category Date Date Treatment Clinician Date DX: Diagnosis Active 2017-072018-07-11 Mem oria R13.10=DYS -07 12:49:00 l PHAGIA, DX: 00:00: Waller UNSPECIFIE R13.10=DYS 00 D, R10.1 PHAGIA, UNSPECIFIE D, R10.1 Active 05/29/2018 [facility] UNK Diagnosis Active 2018-04-23 Mem oria 04-17 08:18:00 l UNK 00:00: Waller 00 Active 04/17/2018 [facility] GERD WO Diagnosis Active 2018-04-25 Me moria ESOPHAGITI 04-17 06:46:00 l S GERD WO 00:00: Mario ESOPHAGITI 00 S Active 04/17/2018 [facility] K21.9, Diagnosis Active 2018-04-17 Mem oria R13.10, - 08:54:00 l K44.9 K21.9, 00:00: Mario R13.10, 00 K44.9 Active 04/04/2018 [facility] Dysphagia, Problem 2018-12-18 M emoria unspecifie 11:14:16 l d Mario Dysphagia, unspecifie d 12/18/2018 [facility] Gastro-eso Problem 2018-12-18 M emoria phageal 11:14:16 l reflux Waller disease Gastro-eso without phageal esophagiti reflux s disease without esophagiti s 12/18/2018 [facility] Diaphragma Problem 2018-11-04 M emoria tic hernia 12:20:16 l without Waller 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 11/04/2018 [facility] Gastritis, Problem 2018-11-10 M emoria unspecifie 12:35:52 l d, without Jb n bleeding Gastritis, unspecifie d, without bleeding 11/10/2018 [facility] Chronic Problem 2018-11-10 Tae ivan obstructiv 12:35:52 l e Chronic Mario pulmonary obstructiv disease, e unspecifie pulmonary d disease, unspecifie d 11/10/2018 [facility] Sleep Problem 2018-11-10 Memor ia apnea, 12:35:52 l unspecifie Sleep Lynsey nn d apnea, unspecifie d 11/10/2018 [facility] Type 2 Problem 2018-11-12 Memor ia diabetes 12:44:11 l mellitus Type 2 Jb n without diabetes complicati mellitus ons without complicati ons 11/12/2018 [facility] 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 Me moria (current) 12:35:52 l use of Long Mario oral term hypoglycem (current) ic drugs use of oral hypoglycem ic drugs 11/10/2018 [facility] Other long Problem 2018-11-10 M emoria term 12:35:52 l (current) Other Jb n drug long-term therapy (current) drug therapy 11/10/2018 [facility] Nicotine Problem 2018-11-12 Mem oria dependence 12:44:11 l , Nicotine Jb n cigarettes dependence , , uncomplica cigarettes noris , uncomplica noris 11/12/2018 [facility] Deep Problem Resolve 2018-12-18 Tae ivan venous d 11:14:16 l thrombosis Deep Jb n (disorder) venous thrombosis (disorder) Resolved Problem 12/18/2018 [facility] Pulmonary Problem Resolve 2018-12-18 M emoria thromboemb d 11:14:16 l olism Waller (disorder) Pulmonary thromboemb olism (disorder) Resolved Problem 12/18/2018 [facility] Anxiety Problem Active 2018-12-18 Tae ivan (finding) 11:14:16 l Anxiety Mario (finding) Active Problem 12/18/2018 [facility] Chronic Problem Active 2018-12-18 Tae ivan obstructiv 11:14:16 l e lung Chronic Mario disease obstructiv (disorder) e lung disease (disorder) Active Problem 12/18/2018 [facility] Diabetes Problem Active 2018-12-18 Mem oria mellitus 11:14:16 l (disorder) Diabetes He rmann mellitus (disorder) Active Problem 12/18/2018 [facility] Dyspnea on Problem Active 2018-12-18 M emoria exertion 11:14:16 l (finding) Dyspnea Herm ayana on exertion (finding) Active Problem 12/18/2018 [facility] Gastroesop Problem Active 2018-12-18 M emoria hageal 11:14:16 l reflux Waller disease Gastroesop (disorder) hageal reflux disease (disorder) Active Problem 12/18/2018 [facility] Pulmonary Problem Active 2018-12-18 Me moria emphysema 11:14:16 l (disorder) Jb n Pulmonary emphysema (disorder) Active Problem 12/18/2018 [facility] Sleep Problem Active 2018-12-18 Memor ia apnea 11:14:16 l (finding) Sleep Jb n apnea (finding) Active Problem 12/18/2018 [facility] DYSPHAGIA, Diagnosis Active 2018-07-11 Memoria UNSPECIFIE 12:49:00 l D Mario DYSPHAGIA, UNSPECIFIE D Active [facility] GASTRO-ESO Diagnosis Active 2018-04-25 Memoria PHAGEAL 06:46:00 l REFLUX Waller DISEASE GASTRO-ESO WITHOUT PHAGEAL REFLUX DISEASE WITHOUT Active [facility] DIAPHRAGMA Diagnosis Active 2018-04-17 Memoria TIC HERNIA 08:54:00 l WITHOUT Mario OBSTRUCTIO DIAPHRAGMA N TIC HERNIA WITHOUT OBSTRUCTIO N Active [facility] History of History of Problem Resolve [...] ity of surgery surgery [place] [facility] History of Past Illness Condition Condition Condition Status Onset Resolution Last Treating Co mments Source Name Details Category Date Date Treatment Clinician Date Epigastric Problem 2017-072018-12-18 2018-12-18 Memoria pain 2- 11:14:16 11:14:16 l 04:44: Waller Epigastric 43 pain 07/19/2018 12/18/2018 [facility] Achalasia Problem 2017-072018-11-12 2018-11-12 Memoria of cardia 0-10 12:44:11 12:44:11 l 03:32: Mario Achalasia 00 of cardia 05/01/2018 11/12/2018 [facility] Allergies, Adverse Reactions, Alerts Allergy Allergy Status Severity Reaction(s) Onset Inactive Treating Comm ents Source Name Type Date Date Clinician penicill Adverse Active Info [facility] Amoxicil Adverse Active Info [facility] crissy Reaction Available [facility] penicill penicill Active Memori a ins ins l Mario Alfaro Talwin Active Memoria l Mario Penicill drug Active Univers ins allergy [facility] [place] [facility] Family History Family Member Diagnosis Comments Start Date Stop Date Source Mother Family history of [facility] [place] malignant neoplasm Physic ians of breast Social History Smoking Status Start Date Stop Date Source Smoker. current status [facility] [place] unknown Physicians Social History 2018-04-25 13:52:33 [facility] myers Medications Ordered Filled Start Stop Current Ordering Indication Dosage Frequency Signature Comments Components Source Medication Medication Date Date Medication? Clinician (SIG) Name Name Jazmine Lucero Yes [facility] as [facility] Tramadol Tramadol 2020- No Navneet [address] [facility] HCl HCl 08-29 Call as needed [facility] 00 :[facility] Oxycodone 2017-07 No 5 mg, 5 Memor ia Hydrochlori 0-04 mL, Route: l de 1 MG/ML 17:47: PO, ONCE, He rmann Oral 00 Dosing Solution Weight 113.636, kg, Start date: 04/25/18 12:47:00 CDT, Stop date: 04/25/18 12:47:00 CDT Labetalol 2017-07 No 10 mg, Memori a 0-04 Route: l 16:19: IVP, Waller 00 Q5Min, Dosing Weight 113.636, kg, PRN Elevated BP, Start date: 04/25/18 11:19:00 CDT, Duration: 5 doses or times, Stop date: Limited # of times Hydralazine 2017-07 No 10 mg, Tae ivan 0-04 Route: l 16:19: IVP, Waller 00 Q20Min, Dosing Weight 113.636, kg, PRN Elevated BP, Start date: 04/25/18 11:19:00 CDT, Duration: 2 doses or times, Stop date: Limited # of times Oxycodone 2017-07 No 5 mg, Memoria 0-04 Route: PO, l 16:19: Drug form: Waller 00 TAB, Q4H, Dosing Weight 113.636, kg, PRN Pain Score 4-6, Start date: 04/25/18 11:19:00 CDT, Duration: 30 day, Stop date: 05/25/18 11:18:00 CDT Diphenhydra 2017-07 No 12.5 mg, Me moria mine 0-04 Route: l 16:19: IVP, Drug Mario 00 form: INJ, Q6H, Dosing Weight 113.636, kg, PRN Itching, Start date: 04/25/18 11:19:00 CDT, Duration: 30 day, Stop date: 05/25/18 11:18:00 CDT Naloxone 2017- No 0.1 mg, Memori a 0-04 Route: l 16:19: SUB-Q, Waller 00 Q6H, Dosing Weight 113.636, kg, PRN Itching, Start date: 04/25/18 11:19:00 CDT, Duration: 30 day, Stop date: 05/25/18 11:18:00 CDT Albuterol 2017-07 No 2.49 mg, Tae ivan 0.83 MG/ML 0-04 Route: l Inhalant 16:19: NEB, Waller Solution 00 Q20Min, Dosing Weight 113.636, kg, PRN Wheezing, Priority: STAT, Start date: 04/25/18 11:19:00 CDT, Duration: 30 day, Stop date: 05/25/18 11:18:00 CDT Hydromorpho 2017-07 No 0.5 mg, Mem oria ne 0-04 Route: l 16:19: IVP, Waller 00 Q5Min, Dosing Weight 113.636, kg, PRN [...] 25 Memoria 0-04 microgram, l 16:19: Route: Waller 00 IVP, Q5Min, Dosing Weight 113.636, kg, [...] INJ, ONCE, Stop date: 04/25/18 9:44:00 CDT acetaminoph 2017-07 No Route: IV, Memoria en (ANES) 0-04 Drug form: l 14:44: INJ, ONCE, Stop date: 04/25/18 9:44:00 CDT famotidine 2017-07 No Route: IV, M emoria (ANES) 0-04 Drug form: l 14:44: INJ, ONCE, Stop date: 04/25/18 9:44:00 CDT scopolamine 2017-07 No Route: IV, Memoria (ANES) 0-04 Drug form: l 14:44: ERFILM, Waller 00 ONCE, Stop date: 04/25/18 9:44:00 CDT dexamethaso 2017-07 No Route: IV, Memoria ne (ANES) 0-04 Drug form: l 14:44: INJ, ONCE, Stop date: 04/25/18 9:44:00 CDT midazolam 2017-07 No Route: IV, Me moria (ANES) 0-04 Drug form: l 14:34: SOLN, Waller 00 ONCE, Stop date: 04/25/18 9:34:00 CDT Sodium 2017-07 No Route: IV, Memor ia Chloride 0-04 Total l 0.9% IV 13:58: Volume: Waller (ANES) 1000 00 1,000, mL Start date: 04/25/18 8:58:00 CDT, Stop date: 04/25/18 9:58:00 CDT Calcium 2017-07 No 1,000 mL, Memor ia Chloride 0-04 Rate: 25 l 0.0014 13:50: ml/hr, Waller MEQ/ML / 00 Infuse Potassium over: 40 [...] date: 05/23/18 7:16:00 CDT, 2.4, m2 Tresiba 2017- Yes 100 units, Tae ivan FlexTouch 04-19 SUB-Q, QAM l 19:59: (Insulin), 0 Refill(s) Humalog Yes 15 unit, Memori a 04-19 SUB-Q, l 19:59: TID-Before Meals, 0 Refill(s) rivaroxaban Yes 20 mg = 1 M emoria 20 MG Oral 04-19 tab, PO, l Tablet 19:59: QPM, # 30 Jb n [Xarelto] 00 tab, 3 Refill(s) Fenofibrate Yes 145 mg = 1 Memoria 145 MG Oral 9-28 tab, PO, l Tablet 19:58: Bedtime, 0 Lynsey nn 00 Refill(s) OLANZapine Yes 10 mg = 1 Me moria 10 mg oral 9-28 tab, PO, l tablet 19:58: QPM, 0 Mario 00 Refill(s) 24 HR Yes 3 tabs, Memoria Divalproex - PO, l Sodium 500 19:58: Bedtime, 0 H ermann MG Extended 00 Refill(s) Release Tablet [Depakote] pantoprazol Yes 40 mg = 1 M emoria e 40 mg -28 tab, PO, l oral 19:57: BID, 0 Waller enteric 00 Refill(s) coated tablet pregabalin Yes 150 mg = 1 M emoria 150 MG Oral 04-19 cap, PO, l Capsule 19:57: QAM, 0 Waller [Lyrica] 00 Refill(s) venlafaxine Yes 150 mg = 1 Memoria 150 mg oral 9-28 tab, PO, l tablet, 19:57: QAM, # 30 Lynsey nn extended 00 tab, 0 release Refill(s) olanzapine Yes 5 mg = 1 Mem oria 5 MG Oral 9-28 tab, PO, l Tablet 19:56: QAM, 0 Waller 00 Refill(s) pioglitazon Yes 30 mg = 1 M emoria e 30 mg -28 tab, PO, l oral tablet 19:56: QAM, 0 Herm aynaa 00 Refill(s) Alprazolam Yes 1 mg = 1 Mem oria 1 MG Oral 9-28 tab, PO, l Tablet 19:55: QAM, 0 Mario [Xanax] 00 Refill(s) metFORMIN Yes 1,000 mg = Me moria 500 mg oral 28 2 tab, PO, l tablet, 19:55: BID, 0 Mario extended 00 Refill(s) release Olanzapine Olanzapine Yes [...] Oral MG Oral ity of Capsule Capsule [place] [facility] Acetic Acid Acetic Acid Yes Navneet not [facility] Call defined [facility] Venlafaxine Venlafaxine Yes Navneet not [facility] HCl ER HCl ER Call defined [facility] Yes Navneet [address] [facility] Omeprazole Omeprazole Yes Navneet (Prior [facility] Call Auth#:0000 [facility] - [id number]) [facility] atorvastati atorvastati Yes Navneet [address] [facility] [facility] n n Call by mouth [facility] - at bedtime [facility] Triamcinolo Triamcinolo Yes Navneet not [facility] ne ne Call defined [facility] - Acetonide Acetonide Memor ia l [facility] BuPROPion BuPROPion Yes Navneet not [facility] Call defined [facility] Trulicity Trulicity Yes Navneet not [facility] Call defined [facility] Pantoprazol Pantoprazol Yes R.N. U nivers e Sodium 40 e Sodium 40 i ty of MG Oral MG Oral [place] Tablet Tablet Physici Delayed Delayed ans Release Release Lyrica Lyrica Yes Navneet not [facility] Call defined [facility] Metformin Metformin Yes Navneet [address] [facility] HCl HCl Call with a [facility] - meal [facility] Lidocaine-P Lidocaine-P Yes Navneet not [facility] rilocaine rilocaine Call defined Jeannette kes - [facility] Furosemide Furosemide Yes Navneet (Prior [facility] Call Auth#:0000 [facility] - [id number]) [facility] Humalog Humalog [...] u[facility] Depakote Depakote Yes R.N. Univers 500 MG Oral 500 MG Oral i ty of Tablet Tablet [place] Delayed Delayed Physici Release Release ans OLANZapine OLANZapine Yes R.N. Uni vers 10 MG Oral 10 MG Oral ity of Tablet Tablet [place] [facility] Fenofibrate Fenofibrate Yes R.N. U nivers 145 MG Oral 145 MG Oral i ty of Tablet Tablet [place] [facility] Xarelto 20 Xarelto 20 Yes R.N. Uni vers MG Oral MG Oral ity of Tablet Tablet [place] [facility] HumaLOG HumaLOG Yes R.N. Univers SOLN SOLN ity of [place] [facility] ans Tresiba Tresiba Yes R.N. Univers FlexTouch FlexTouch ity o f 100 UNIT/ML 100 UNIT/ML [place] Subcutaneou Subcutaneou P hysici s Solution s Solution ans Pen-injecto Pen-injecto r r Vital Signs Vital Name Observation Time Observation Value Comments Source BP Systolic 2018-05-30 138 mm[Hg] Location: [facility] :10:00 Position: [place] [facility] Sitting BP Diastolic 2018-05-30 91 mm[Hg] Location: [facility] 14:10:00 Position: [place] [facility] Sitting Height 2018-05-30 71 [in_us] [facility] 14:10:00 [place] [facility] Weight 2018-05-30 249.375 [lb_av] University o f 14:10:00 [place] [facility] Body Mass Index 2018-05-30 34.78 kg/m2 University o Calculated 14:10:00 [place] [facility] Temperature 2018-05-30 98 [degF] Method: Oral [facility] 14:10:00 [place] [facility] Heart Rate 2018-05-30 80 /min Quality: Normal University o f 14:10:00 [place] [facility] Respiration Rate 2018-05-30 18 /min Quality: Normal Universi ty of 14:10:00 [place] [facility] O2 SAT 2018-05-30 97 % Source: [facility] 14:10:00 [place] [facility] BP Systolic 2018-05-01 126 mm[Hg] Location: [facility] 11:46:00 Position: [place] [facility]ician s Sitting BP Diastolic 2018-05-01 75 mm[Hg] Location: [facility] 11:46:00 Position: [place] [facility]ician s Sitting Height 2018-05-01 71 [in_us] University of 11:46:00 [place] [facility] Weight 2018-05-01 254.125 [lb_av] University o f 11:46:00 [place] [facility] Body Mass Index 2018-05-01 35.44 kg/m2 University o Calculated 11:46:00 [place] [facility] Temperature 2018-05-01 98.4 [degF] Method: Oral University of 11:46:00 [place] [facility] Heart Rate 2018-05-01 76 /min Quality: Normal University o f 11:46:00 [place] [facility] Respiration Rate 2018-05-01 19 /min Quality: Normal Universi ty of 11:46:00 [place] [facility] O2 SAT 2018-05-01 95 % Source: [facility] 11:46:00 [place] [facility] Systolic (mm Hg) 2018-04-25 [facility] He rmann 18:30:00 Diastolic (mm Hg) 2018-04-25 [facility] ermann 18:30:00 Systolic (mm Hg) 2018-04-25 [facility] He rmann 18:00:00 Diastolic (mm Hg) 2018-04-25 [facility] H ermann 18:00:00 Systolic (mm Hg) 2018-04-25 [facility] He rmann 17:45:00 Diastolic (mm Hg) 2018-04-25 [facility] H ermann 17:45:00 Respitory Rate 2018-04-25 [facility] [...] ayana 13:15:00 Systolic (mm Hg) 2018-04-23 [facility] He rmann 13:15:00 Diastolic (mm Hg) 2018-04-23 [facility] H ermann 13:15:00 Weight 2018-04-23 Memorial Jb n 12:17:00 BMI Calculated 2018-04-23 [facility] Herm ayana 12:17:00 Height 2018-04-23 180.34 cm [facility] Jb n 12:17:00 Temperature Oral 2018-04-19 97.8 F [facility] Tonny rmann (F) 19:59:00 Heart Rate 2018-04-19 Lee Marshallan n 19:59:00 BMI Calculated 2018-04-19 [facility] ayana 19:52:00 Weight 2018-04-19 [facility] Jb n 19:52:00 Height 2018-04-19 180.34 cm Lee Marshallan n 19:52:00 BP Systolic 2018-04-17 126 mm[Hg] Location: [facility] 09:58:00 Position: [place] [facility] Sitting BP Diastolic 2018-04-17 81 mm[Hg] Location: [facility] 09:58:00 Position: [place] [facility] Sitting Height 2018-04-17 71 [in_us] [facility] 09:58:00 [place] [facility] Weight 2018-04-17 248.375 [lb_av] University o f 09:58:00 [place] [facility] Body Mass Index 2018-04-17 34.64 kg/m2 University o f Calculated 09:58:00 [place] [facility] Temperature 2018-04-17 98.3 [degF] Method: Oral [place] [facility] 09:58:00 [place] [facility] Heart Rate 2018-04-17 83 /min Quality: Normal University o f 09:58:00 [place] [facility] Respiration Rate 2018-04-17 18 /min Quality: Normal Universi of 09:58:00 [place] [facility] O2 SAT 2018-04-17 95 % Source: RA [facility] 09:58:00 [place] [facility] Procedures Procedure Date / Time Performing Source Performed Clinician Am[facility] Memor ial Waller Resection [facility] History of Appendectomy Universi ty [facility] Physicians History of Neck surgery [facility] ty [facility] Physicians [facility]icians History of Colon Surgery [facility] Physicians History of [facility] Physicians History of [place] Myotomy Univ sity of Laparoscopic Approach [place] [facility] Encounters Start End Encounter Admission Attending Care Care Encounter Source Date/Time Date/Time Type Type Clinicians Facility Department ID 2020-09-14 2020-09-14 Outpatient [facility] [id number] [facility] 2020-08-19 2020-08-19 Outpatient [facility] [id number] [facility] 2020-08-12 2020-08-12 Outpatient [facility] [id number] [facility] 2020-08-06 2020-08-06 Outpatient [facility] [id number] [facility] 2020-05-20 2020-05-20 Outpatient [facility] [id number] [facility] 2020-05-12 2020-05-12 Outpatient [facility] [id number] [facility] 2020-04-16 2020-04-16 Outpatient [facility] [id number] [facility] 2020-02-18 2020-02-18 [facility] [id number] [facility] 08:00[facility]00 08:00:00 [facility] 2020-02-09 2020-02-09 [facility] [id number] 11:53:00 11:53:00 [facility] 2020-01-27 2020-01-27 [facility] [id number] [facility] 13:00:00 13:00:00 [facility] 2020-01-21 2020-01-21 [facility] [id number] [facility] [facility] 09:30:00 09:30:00 [facility] 2020-01-14 2020-01-14 [facility] [id number] 09:18:00 09:18:00 [facility] 2020-01-08 2020-01-08 [facility] [id number] [facility] 14:15:00 14:15:00 [facility] 2019-12-04 2019-12-04 [facility] [id number] [facility] 11:00:00 11:00:00 [facility] 2019-11-20 2019-11-20 [facility] [id number] [facility] 16:22:00 16:22:00 [facility] 2019-10-06 2019-10-06 [facility] [id number] 11:00:00 11:00:00 [facility] 2019-09-29 2019-09-29 [facility] [id number] [facility] 13:10:00 13:10:00 [facility] 2019-09-11 2019-09-11 [facility] [id number] 13:30:00 13:30:00 [facility] 2019-09-01 2019-09-01 [facility] [id number] [facility] 09:16:00 09:16:00 [facility] 2019-08-29 2019-08-29 [facility] [id number] [facility] 08:18:00 08:18:00 [facility] 2019-08-22 2019-08-22 [facility] [id number] [facility] 09:00:00 09:00:00 [facility] 2019-08-20 2019-08-20 [facility] [id number] 15:48:00 15:48:00 [facility] 2019-08-18 2019-08-18 [facility] [id number] [facility] 12:00:00 12:00:00 t [facility] 2019-08-06 2019-08-06 [facility] [id number] 13:30:00 13:30:00 t [facility] 2019-08-04 2019-08-04 [facility] [id number] [facility] 11:00:00 11:00:00 t [facility] 2019-07-29 2019-07-29 [facility] [id number] [facility] 16:13:00 16:13:00 t [facility] ent Clinics 2019-07-21 2019-07-21 [facility] [id number] [facility] 11:09:00 11:09:00 [facility] 2019-07-10 2019-07-10 [facility] [id number] 13:30:00 13:30:00 t [facility] Clin[facility] 2019-06-12 2019-06-12 [facility] [id number] 11:37:00 11:37:00 t [facility] Clinics 2019-06-09 2019-06-09 [facility] [id number] 14:59:00 14:59:00 t [facility] ent Clinics 2019-06-09 2019-06-09 [facility] [id number] 08:00:00 08:00:00 t [facility] 2019-05-28 2019-05-28 [facility] [id number] [facility] 09:16:00 09:16:00 t [facility] ent Clinics 2019-05-27 2019-05-27 [facility] [id number] [facility] 15:03:00 15:03:00 [facility] 2019-05-22 2019-05-22 [facility] [id number] [facility] 13:30:00 13:30:00 [facility] ent Clinics 2019-05-08 2019-05-08 [facility] [id number] [address] 09:55:00 09:55:00 [facility] ent Clinics 2019-05-06 2019-05-06 [facility] [id number] 14:30:00 14:30:00 [facility] 2019-05-02 2019-05-02 [facility] [id number] [facility] 10:23:00 10:23:00 t [facility] 2019-04-28 2019-04-28 [facility] [id number] [address] 08:46:00 08:46:00 t [facility] 2019-04-22 2019-04-22 [facility] [id number] 08:00:00 08:00:00 t [facility] 2019-04-17 2019-04-17 [facility] [id number] 13:30:00 13:30:00 t [facility] 2019-04-14 2019-04-14 [facility] [id number] 13:21:00 13:21:00 t [facility] 2019-04-14 2019-04-14 [facility] [id number] 11:15:00 11:15:00 t [facility] 2018-07-31 2018-07-31 Appointmen CINDY ABBOTT [id number] [facility] 09:15:00 09:15:00 t; NABOR ABBOTT it y of Jory TOMLIN M.D. Physici ans 2018-05-30 2018-05-30 Outpatient [facility] [id number] 13:00:00 23:59:00 Nabor 03 2018-05-30 2018-05-30 Appointmen CINDY ABBOTT [facility] [id number] [facility] 14:00:00 14:00:00 t; NABOR ABBOTT, cic and it y of Jory TOMLIN Vascular Terry M.Anatoly Surgery at [facility] 2018-05-01 2018-05-01 Appointmen [facility] [id number] [facility] 11:15:00 11:15:00 t; NABOR ABBOTT, cic and it y of Jory TOMLIN Vascular Terry M.Angie. Surgery at [facility] 2018-04-25 2018-04-25 [facility] [id number] 06:46:00 13:58:00 Nabor 2018-04-23 2018-04-23 Outpatient Hugo [facility] [id number] 05:57:00 09:10:00 Nabor 2018-04-17 2018-04-17 Outpatient Hugo [facility] [id number] 08:16:00 23:59:00 Nabor 2018-04-17 2018-04-17 Appointmen [facility] [id number] [facility] 09:00:00 09:00:00 t; NABOR ABBOTT, cic and it y of Jory TOMLIN Vascular Terry MRaciel Surgery at [facility] Results Test Description Test Time Test Comments Results Result Comments Source CHEM PANEL 2018-04-19 3.5 [facility] 20:18:00 CHEM PANEL 2018-04-19 20:18:00 Test Item Value Reference Range Interpretation Comme nts A/G Ratio (test code = A/G Ratio) 0.9 1 0.7-[address] [id number] 20:18:00 Test Item Value Reference Range Interpretation Comments PTT (test code = PTT) 25.8 s 22.9-35.[address] [facility] [facility] HospitalNguthusRQSUPRLPGF0403-85-55 20:18:00 Test Item Value Reference Range Interpretation Comments PT (test code = PT) 14.0 s 12.0-14.7 [facility] [id number] 20:18:00 Test Item Value Reference Range Interpretation Comments INR (test code = INR) 1.08 1 0.85-1.17 [facility] AqibdchMEYCMWGQPP2371-44-99 20:18:14449Llnzprjt HermannHEMATOLOGY 2018-04-19 20:18:008.7[facility] TfybbxyTGHGXTXITX6022-11-17 20:18:00 Test Item Value Reference Range Interpretation Comments MCH (test code = MCH) 29.7 pg 27.0-31.0 [facility] DltcsoiNEFBGRRMAH3726-31-74 20:18:0015.0[facility]ann[facility]MATOLOGY 2018-04-19 20:18:0033.1[facility] EbflgqlJFQDNNQEUC9982-12-07 20:18:0089.8[facility] MjlhngyOMVHEFJJHP2741-90-98 20:18:0039.1[facility] SwdddddXNRJWPKUYM5720-76-42 20:18:006.0[facility] NnioghgOYNNBFVBWM4683-22-32 20:18:0012.9[facility] NPFNWKTUWC9748-06-06 20:18:004.35[facility] CltwbfvDVNGLJVFXR3280-73-98 20:18:00 0.1[facility] RygrbpjLNJCPPWQNS8967-76-79 20:18:003.5[facility] HermannHEMATOLOGY 2018-04-19 20:18:000.4[facility] FxphynyQHBHPYGCMH9940-16-64 20:18:000.3[facility] ErjpcwwQQHTQAKXEI5539-29-23 20:18:001.9[facility] MpylxgvVWNCEXPROT1318-89-94 20:18:002.3[facility] HunvyilCEXIGIFVPI9445-99-42 20:18:007.4[facility] KCLOHLJRBA3993-38-06 20:18:0031.6[facility] BchqjfqIWQNNYHDRO9554-99-75 20:18:00 58.4[facility] HermannSPECIAL QKNQBHTCN5684-89-29 20:18:0010.3[facility] URINE AND LYRLP8802-00-77 20:18:00Negative (9/28/18 3:18 PM)[facility] URINE AND [id number] 20:18:00Negative (04/19/18 3:18 PM)[facility]INE AND LNBQV2445-28-66 20:18:001[facility]ann[facility]INE AND [id number] 20:18:00Negative (04/19/18 3:18 PM)[facility] AND [id number] 20:18:005[facility] AND [id number] 20:18:00 Test Item Value Reference Range Interpretation Comments UA pH (test code = UA pH) 5.0 1 5.0-8.0 [facility] [id number] 20:18:00 Test Item Value Reference Range Interpretation Comments UA Spec Grav (test code = UA Spec 1.025 1 Grav) [facility] [id number] 20:18:00Slight *ABN*(04/19/18 3:18 PM) [facility] [id number] 20:18:00Yellow *NA*(04/19/18 3:18 PM) [facility] [id number] 20:18:00Negative *NA*(04/19/18 3:18 PM) [facility]annBLOOD BANK [id number] 20:18:00Negative (04/19/18 3:18 PM) [facility]annCHEM EPJMV7743-07-70 20:18:0056[facility] HermannCHEM PANEL 2018-04-19 20:18:0021[facility] HermannCHEM [id number] 20:18:003.2[facility] HermannCHEM WUPTX0612-64-09 20:18:0025[facility] HermannCHEM NZEFS6683-77-11 20:18:0065[facility] HermannCHEM QJXZQ9500-96-03 20:18:000.2[facility] HermannCHEM YRWNV3462-21-97 20:18:009.0[facility] HermannCHEM EDTQP9876-67-26 20:18:006.7 [facility]annCHEM JAMKG9739-12-68 20:18:24022Mhlkonsm HermannCHEM PANEL 2018-04-19 20:18:0018[facility] HermannCHEM EQCSU7764-00-23 20:18:001.13[facility] HermannCHEM ZPFZU3245-74-70 20:18:48268Xhpbgpyk HermannCHEM ZTJIY5073-23-05 20:18:88139Ubhglhfx HermannCHEM JPBIT4430-52-18 20:18:0027[facility] HermannCHEM YWJFZ3784-76-62 20:18:004.5[facility] HermannCHEM VBWKK0726-13-75 20:18:0015.5 [facility] HermannCHEM [id number] 20:18:00 Test Item Value Reference Range Interpretation Comments B/C Ratio (test code = B/C Ratio) 16 1 6 [facility] [id number] 20:00:00Product available (04/19/18 3:00 PM)[facility]
[2020-10-11] MEDS ORDERED: METHYLPREDNISOLONE 125 MG INJ ONE (08:23)
[2020-10-11] MEDS ORDERED: LEVALBUTEROL 1.25 MG/3 ML NEB ONE (08:24)
[2020-10-11 08:37] LABS: Absolute Lymphocytes (CBC) 1.6 K/uL (0.7-4.9); Basophils % 0.2 % (0-1.3); Lymphocytes % 20.5 % (15.3-44.8); MPV 8.7 fL (7.6-11.3); RBC Red Blood Cell Count 4.04 M/uL (3.86-4.86)
[2020-10-11 08:56] LABS: BUN Blood Urea Nitrogen 11 mg/dL (7-18); Bicarbonate 32 mmol/L (21-32); Glucose Level 335 mg/dL (74-106); NT PRO-BNP 369 pg/mL (<125); Potassium 4.2 mmol/L (3.5-5.1); Sodium Level 139 mmol/L (136-145)
[2020-10-11 08:57] LABS: Protime INR 1.06
--- NOTE | 2020-10-11 09:06 | RAD REPORT ---
EXAM DESCRIPTION: CT - Head C Spine Cap W Con - 10/11/2020 8:46 am CLINICAL HISTORY: Trauma, head and neck injury. Chest, abdomen and pelvis pain. fall from bed, altered, abd bruising, back pain COMPARISON: Chest Pa And Lat (2 Views) dated 09/14/2020; Chest Single View dated 02/22/2020; Stone Prot ocol dated 05/03/2020; Chest For Pe Angio dated 11/03/2018 TECHNIQUE: CT head without contrast. CT cervical spine without contrast with coronal and sagittal reformatted images. CT chest, abdomen and pelvis with IV contrast (approximately 100 mL nonionic IV contrast) with oneill l and sagittal reformatted images of the spine. All CT scans are performed using dose optimization technique as appropriate and may include automated exposure control or mA/KV adjustment according to patient size. FINDINGS: CT HEAD WITHOUT CONTRAST: No intracranial hemorrhage, hydrocephalus or extra-axial fluid collection. Moderate brain atrophy. No areas of brain edema or midline shift. The paranasal sinuses and mastoids are clear. The calvarium is intact. CT CERVICAL SPINE WITHOUT CONTRAST: No fracture or subluxation. Anterior fusion hardware is seen spanning C4-7. The prevertebral soft tis sues are normal in thickness. CT CHEST, ABDOMEN, PELVIS WITH CONTRAST: Thick walled cavitary mass in the left upper lobe presumed present measuring 28 x 22 mm.This appears mildly enlarged in size since 2019 comparative study.No pneumothorax or pericardial/pleural fluid. No evidence of intra-abdominal visceral injury, free fluid or free air. Fatty liver noted. Diverticulosis of the rectosigmoid colon is present with significant fecal retention throughout the c olon. No fractures. IMPRESSION: Negative for acute traumatic findings. Thick walled cavitary mass in the left upper lobe shows mild size increase since 2019 comparative caitlyn dy follow-up CT chest for surveillance purposes is recommended in 3-6 months. Prominent fatty liver. Postsurgical cervical spine.
--- NOTE | 2020-10-11 09:36 | RAD REPORT ---
EXAM DESCRIPTION: RAD - Chest Single View - 10/11/2020 9:17 am CLINICAL HISTORY: hypoxemia Chest pain. COMPARISON: Chest Pa And Lat (2 Views) dated 09/14/2020; Chest Single View dated 02/22/2020; Chest Sing le View dated 08/20/2019; Chest Single View dated 03/03/2019 FINDINGS: Portable technique limits examination quality. Small rounded density is seen in the left upper lobe. Grossly, this appears similar to previous recen t chest radiographs. The lungs are otherwise clear. The heart is mildly prominent in size. No displac ed fractures.Cervical spine hardware plate.
[2020-10-11 09:37] LABS: Blood Gas Oxyhemoglobin 92.9 % (94-97); Blood O2 Saturation 95.8 % (92-98.5)
[2020-10-11 09:39] LABS: Urine Blood TRACE (NEG); Urine Glucose 3+ (NEG); Urine Protein TRACE (NEG); Urine pH 5.5 (5.0-7.0)
[2020-10-11 09:49] LABS: Urine Bacteria <20 /HPF (<20); Urine RBC NONE SEEN /HPF (NONE SEEN)
--- NOTE | 2020-10-11 10:02 | ER ---
Nurse's Notes [facility] Name: Renetta Ramsay Age: 54 yrs Sex: Female : 1965 Arrival Date: 10/11/2020 Time: 07:59 Bed 2 Private MD: Diagnosis: Acute and chronic respiratory failure with hypercapnia;Hypoxemia;Altered mental status, unspecified;Superficial injury of head Presentation: 10/11 08:00 Chief complaint: EMS states: fell out of bed this morning, reports + LOC. PT c/o ss dizziness x 2 days. Coronavirus screen: Client denies travel out of the [place] in the last 14 days. Ebola Screen: Patient denies exposure to infectious person. Patient denies travel to an Ebola-affected area in the 21 days before illness onset. Initial Sepsis Screen: Does the patient meet any 2 criteria? No. Patient's initial sepsis screen is negative. Does the patient have a suspected source of infection? No. Patient's initial sepsis screen is negative. Risk Assessment: Do you want to hurt yourself or someone else? Patient reports no desire to harm self or others. Onset of symptoms is unknown. 08:00 Method Of Arrival: EMS: [facility] ss 08:00 Acuity: OLY 2 ss 08:02 Care prior to arrival: IV initiated. 20 GA, in the right antecubital area, Oxygen ss administered. via nasal cannula. Mechanism of Injury: Fall from bed onto floor. Trauma event details: Injury occurred in the [facility], Injury occurred: at home. Trauma Activation: Alert Physician: ED Physician; Name: ; Notified At: ; Arrived At: Physician: General Surgeon; Name: ; Notified At: ; Arrived At: Physician: Radiology; Name: ; Notified At: ; Arrived At: Physician: Respiratory; Name: ; Notified At: ; Arrived At: Physician: Lab; Name: ; Notified At: ; Arrived At: Historical: - Allergies: 08:02 Amoxicillin; ss 08:02 ARIPIPRAZOLE; ss 08:02 PENICILLINS; ss 08:02 pentazocine lactate; ss 08:02 Talwin; ss - Home Meds: 11:00 atorvastatin 40 mg Oral tab 1 tab nightly [Active]; Depakote 500 mg Oral TbEC 3 tabs hb nightly [Active]; Eliquis 5 mg Oral tab 1 tab 2 times per day [Active]; furosemide 20 mg Oral tab 1 tab once daily [Active]; Humalog 100 unit/mL Sub-Q crtg 15 unit after meals and before bedtime [Active]; Lyrica 150 mg Oral 3 times per day [Active]; metformin 500 mg Oral cpER 1 tab 2 times per day [Active]; olanzapine 5 mg Oral tab once daily [Active]; omeprazole 20 mg Oral cpDR 1 cap once daily [Active]; Tresiba FlexTouch U-100 100 unit/mL (3 mL) subcutaneous inpn 90 unit daily [Active]; Trulicity 0.75 mg/0.5 mL subcutaneous pnij 0.5 mL once wkly [Active]; venlafaxine 75 mg Oral cp24 once daily [Active]; - PMHx: 08:02 ADD/ADHD; DVT; Diabetes - NIDDM; Depression; Chronic pain; Bipolar disorder; Esophageal ss stricture; High Cholesterol; Hypertension; osteomyelitis; Pancreatitis; - PSHx: 08:02 Hysterectomy; colon resection; Appendectomy; ss - Immunization history:: Adult Immunizations unknown. - Social history:: Smoking status: unknown. - Immunization history: Last tetanus immunization: unknown. - Family history:: not pertinent. - Hospitalizations: : No recent hospitalization is reported. Screenin:01 Abuse screen: Denies threats or abuse. Denies injuries from another. Nutritional hb screening: No deficits noted. Tuberculosis screening: No symptoms or risk factors identified. Fall Risk Total Dugan Fall Scale indicates High Risk Score (45 or more points). Fall prevention measures have been instituted. Side Rails Up X 2 Frequent Obs/Assessments Occuring As available patient and family educated on Fall Prevention Program and Strategies. Primary Survey: 08:02 NO uncontrolled hemorrhage observed. A: The patient needs verbal stimulation to ss respond. Airway: patent, Oxygen via nasal cannula at 2 liters per minute. Oral cavity: clear, Trachea midline. Breathing/Chest: Respiratory pattern: regular, Respiratory effort: spontaneous, unlabored, Chest inspection: symmetrical rise and fall of the chest. Circulation: Pulses: palpable right radial artery, right posterior tibial artery, left radial artery and left posterior tibial artery. Disability Verbal Stimuli. Exposure/Environment: All clothing and personal items were removed. Forensic evidence collection is not deemed to be indicated at this time. Items placed in patient belonging bag. There is no evidence of uncontrolled external bleeding. 09:00 Reassessment Airway Airway Patent Oxygen Other BiPAP Breathing/Chest Respiratory effort hb Spontaneous Unlabored Chest inspection Symmetrical Circulation Color Kite Disability Verbal stimuli. 10:00 Reassessment Airway Airway Patent Oxygen Other BiPAP Breathing/Chest Respiratory effort hb Spontaneous Unlabored Chest inspection Symmetrical Circulation Color Kite Disability Verbal stimuli. 11:00 Reassessment Airway Oxygen Other BiPAP Breathing/Chest Respiratory pattern Regular hb Respiratory effort Spontaneous Unlabored Chest inspection Symmetrical Circulation Color Kite Temperature Warm Dry Disability Verbal stimuli. 12:00 Reassessment Airway Oxygen Other BiPAP Breathing/Chest Respiratory pattern Regular hb Chest inspection Symmetrical Circulation Color Kite Temperature Warm Dry Disability Verbal stimuli. 13:00 Reassessment Airway Oxygen Other BiPAP Breathing/Chest Respiratory pattern Regular hb Respiratory effort Spontaneous Unlabored Chest inspection Symmetrical Circulation Color Kite Temperature Warm Dry Disability Verbal stimuli. 14:00 Reassessment Airway Oxygen Other BiPAP Breathing/Chest Respiratory pattern Regular hb Respiratory effort Spontaneous Unlabored Chest inspection Symmetrical Circulation Color Kite Temperature Warm Dry Disability Verbal stimuli. 15:00 Reassessment Airway Airway Patent Oxygen Other BiPAP Breathing/Chest Respiratory hb pattern Regular Respiratory effort Spontaneous Unlabored Chest inspection Symmetrical Circulation Color Kite Temperature Warm Dry Disability Verbal stimuli. Secondary Survey: 08:27 HEENT: No deficits noted. Gastrointestinal: No deficits noted. Abdomen is obese. : No hb deficits noted. No signs and/or symptoms were reported regarding the genitourinary system. Musculoskeletal: Reports pain in neck, back, abdomen, headache. Assessment: 08:05 General: Appears in no apparent distress. Behavior is cooperative. Pain: Pain currently hb is 6 out of 10 on a pain scale. Neuro: Level of Consciousness is obeys commands, confused, lethargic, Oriented to person, Reports dizziness, headache. EENT: No signs and/or symptoms were reported regarding the EENT system. Cardiovascular: Patient's skin is warm and dry. Respiratory: Respiratory effort is even, unlabored, Respiratory pattern is regular, symmetrical. GI: Reports lower abdominal pain, upper abdominal pain. : No signs and/or symptoms were reported regarding the genitourinary system. Derm: Skin is pink, warm \\T\\ dry. Musculoskeletal: Reports back pain, neck pain, abdominal pain. 09:00 Reassessment: No changes from previously documented assessment. Patient and/or family hb updated on plan of care and expected duration. Pain level reassessed. 10:00 Reassessment: No changes from previously documented assessment. Patient and/or family hb updated on plan of care and expected duration. Pain level reassessed. Pt remains on BiPAP. Admission ordered, awaiting orders from hospitalist at this time. 11:00 Reassessment: Patient appears in no apparent distress at this time. No changes from hb previously documented assessment. Patient and/or family updated on plan of care and expected duration. Pain level reassessed. 12:00 Reassessment: Patient appears in no apparent distress at this time. No changes from hb previously documented assessment. Patient and/or family updated on plan of care and expected duration. Pain level reassessed. 13:00 Reassessment: Patient appears in no apparent distress at this time. No changes from hb previously documented assessment. Patient and/or family updated on plan of care and expected duration. Pain level reassessed. 14:00 Reassessment: Patient appears in no apparent distress at this time. No changes from hb previously documented assessment. Patient and/or family updated on plan of care and expected duration. Pain level reassessed. 14:32 Reassessment: Mother Heidi Ramsay [phone] updated on POC. hb 15:00 Reassessment: Patient appears in no apparent distress at this time. No changes from hb previously documented assessment. Patient and/or family updated on plan of care and expected duration. Pain level reassessed. 15:30 Reassessment: Attempted to call report, receiving nurse unavailable, charge nurse hb unavailable. Sweet Pickled Fruit Maker Migel RN and charge nurse Debby RN notified. Vital Signs: 08:00 BP 155 / 78; Pulse 98; Resp 18; Temp 99.0(O); Pulse Ox 73% on R/A; Weight 131.09 kg; ss 09:00 BP 164 / 64; Pulse 100; Resp 17; Pulse Ox 97% on 45% BiPAP; hb 10:00 BP 127 / 73; Pulse 99; Resp 16; Pulse Ox 95% on 45% BiPAP; Pain 0/10; hb 11:00 BP 162 / 51; Pulse 97; Resp 17; Pulse Ox 94% on 45% BiPAP; Pain 0/10; hb 12:00 BP 147 / 89; Pulse 92; Resp 14; Pulse Ox 95% on BiPAP; sv 12:45 BP 140 / 82; Pulse 88; Resp 15; Pulse Ox 97% on BiPAP; sv 13:30 BP 130 / 81; Pulse 85; Resp 14; Pulse Ox 95% on BiPAP; sv 14:00 BP 130 / 81; Pulse 86; Resp 14; Pulse Ox 97% on 45% BiPAP; hb 15:00 BP 136 / 78; Pulse 86; Resp 21; Pulse Ox 97% on 45% BiPAP; hb 10:00 Martin (FACES) hb 09:00 16/7, R20, 45% FiO2 hb Criss Coma Score: 08:02 Eye Response: to voice(3). Verbal Response: confused(4). Motor Response: obeys ss commands(6). Total: 13. 08:11 Eye Response: spontaneous(4). Verbal Response: confused(4). Motor Response: obeys rn commands(6). Total: 14. Trauma Score (Adult): 08:02 Eye Response: to voice(0); Verbal Response: confused(1); Motor Response: obeys ss commands(2); Systolic BP: > 89 mm Hg(4); Respiratory Rate: 10 to 29 per min(4); Criss Score: 13; Trauma Score: 11 09:00 Eye Response: to voice(0); Verbal Response: confused(1); Motor Response: obeys hb commands(2); Systolic BP: > 89 mm Hg(4); Respiratory Rate: 10 to 29 per min(4); Quinlan Score: 13; Trauma Score: 11 10:00 Eye Response: to voice(0); Verbal Response: confused(1); Motor Response: obeys hb commands(2); Systolic BP: > 89 mm Hg(4); Respiratory Rate: 10 to 29 per min(4); Criss Score: 13; Trauma Score: 11 11:00 Eye Response: to voice(0); Verbal Response: confused(1); Motor Response: obeys hb commands(2); Systolic BP: > 89 mm Hg(4); Respiratory Rate: 10 to 29 per min(4); Criss Score: 13; Trauma Score: 11 12:00 Eye Response: to voice(0); Verbal Response: confused(1); Motor Response: obeys hb commands(2); Systolic BP: > 89 mm Hg(4); Respiratory Rate: 10 to 29 per min(4); Criss Score: 13; Trauma Score: 11 13:00 Eye Response: to voice(0); Verbal Response: confused(1); Motor Response: obeys hb commands(2); Systolic BP: > 89 mm Hg(4); Respiratory Rate: 10 to 29 per min(4); Quinlan Score: 13; Trauma Score: 11 14:00 Eye Response: to voice(0); Verbal Response: confused(1); Motor Response: obeys hb commands(2); Systolic BP: > 89 mm Hg(4); Respiratory Rate: 10 to 29 per min(4); Quinlan Score: 13; Trauma Score: 11 15:00 Eye Response: to voice(0); Verbal Response: confused(1); Motor Response: obeys hb commands(2); Systolic BP: > 89 mm Hg(4); Respiratory Rate: 10 to 29 per min(4); Quinlan Score: 13; Trauma Score: 11 ED Course: 07:59 Patient arrived in ED. rn 07:59 Sean Maciel MD is Attending Physician. rn 07:59 Elsa Campbell RN is Primary Nurse. hb 08:01 Triage completed. ss 08:01 Arm band placed on. hb 08:01 Patient has correct armband on for positive identification. Bed in low position. Call hb light in reach. Side rails up X2. 08:02 Maintain EMS IV. Dressing intact. Good blood return noted. Site clean \\T\\ dry. Gauge \\T\\ ss site: 20 gauge in R AC. Oxygen administration via nasal cannula \\T\\ 2L/min. Thermoregulation: warm blanket given to patient. 08:30 Radiology exam delayed due to PT IN CT WHEN ATTEMPTED CXR. sw 08:46 CT Traumagram (Head C Spine CAP W Con) In Process Unspecified. EDMS 09:04 XRAY Chest (1 view) Sent. sv 09:20 XRAY Chest (1 view) In Process Unspecified. EDMS 09:50 COVID-19 : Document "Date of Symptom Onset" if Symptomatic. Sent. hb 09:51 ABG Sent. hb 09:51 Urine collected: Baker catheter specimen, clear, Amount Returned: 800mL. Baker cath sr5 inserted, using sterile technique, 16 Fr., by me, balloon inflated, returned clear yellow urine. Patient tolerated well. 10:01 Jose Luis Gallardo MD is Hospitalizing Provider. rn 15:45 No provider procedures requiring assistance completed. Patient admitted, IV remains in hb place. Administered Medications: 08:50 Drug: SOLU-Medrol 125 mg Route: IVP; Site: right antecubital; hb 09:30 Follow up: Response: No adverse reaction hb 08:50 Drug: Xopenex (3) 1.25 mg Route: Inhalation; hb 09:40 Follow up: Response: No adverse reaction hb Point of Care Testing: Blood Glucose: 08:05 Blood Glucose: 330 mg/dL; hb Ranges: Intake: 09:00 PO: 0ml; Total: 0ml. hb Output: 09:00 Urine: 800ml (Baker); Total: 800ml. hb 14:36 Urine: 950ml (Baker); Total: 1750ml. hb Outcome: 10:02 Decision to Hospitalize by Provider. rn 14:10 Yes, admission ordered, awaiting room assignment Patient's length of stay extended due hb to 15:45 Admitted to Tele accompanied by nurse, via stretcher, room 219, with oxygen, on hb monitor, with chart, Report called to Chari FLORES 15:45 Condition: stable 15:45 Instructed on the need for admit. 15:55 Patient left the ED. hb Signatures: Dispatcher [employer] Sweetie Childers RN Sean Hutton MD MD rn Smirch, Shelby, RN RN ss Warren, Shannon sw Baxter, Heather, RN RN hb Resecker, Sam RN RN sr5 Corrections: (The following items were deleted from the chart) 10:27 09:00 Reassessment Airway Airway Patent Oxygen Other BiPAP Breathing/Chest Respiratory hb effort Spontaneous Unlabored Chest inspection Symmetrical hb
--- NOTE | 2020-10-11 10:02 | EDPHYS ---
Physician Documentation [facility] Name: Renetta Ramsay Age: 54 yrs Sex: Female : 1965 Arrival Date: 10/11/2020 Time: 07:59 Bed 2 Private MD: ED Physician Sean Maciel HPI: 10/11 08:11 This 54 yrs old Female presents to ER via EMS with complaints of Altered rn Mental Status, Fall Injury. 08:11 The patient presents with decreased responsiveness. Onset: The symptoms/episode rn began/occurred at an unknown time. Possible causes: head injury, a fall, out of bed. Associated signs and symptoms: Pertinent positives: abdominal pain, back pain, confusion, dizziness, headache, Pertinent negatives: chest pain, seizure. Current symptoms: In the emergency department the patient's symptoms are unchanged from the initial presentation. It is unknown whether or not the patient has had similar symptoms in the past. It is unknown whether or not the patient has recently seen a physician. Pt reports fall getting out of bed this AM, has been dizzy for atleast 2 days, with difficulty driving and walking, hit head, on eliquis, unknown if LOC. Reports pain to head/neck/back/abdomen. NO pain to extremities. . Historical: - Allergies: 08:02 Amoxicillin; ss 08:02 ARIPIPRAZOLE; ss 08:02 PENICILLINS; ss 08:02 pentazocine lactate; ss 08:02 Talwin; ss - Home Meds: 11:00 atorvastatin 40 mg Oral tab 1 tab nightly [Active]; Depakote 500 mg Oral TbEC 3 tabs hb nightly [Active]; Eliquis 5 mg Oral tab 1 tab 2 times per day [Active]; furosemide 20 mg Oral tab 1 tab once daily [Active]; Humalog 100 unit/mL Sub-Q crtg 15 unit after meals and before bedtime [Active]; Lyrica 150 mg Oral 3 times per day [Active]; metformin 500 mg Oral cpER 1 tab 2 times per day [Active]; olanzapine 5 mg Oral tab once daily [Active]; omeprazole 20 mg Oral cpDR 1 cap once daily [Active]; Tresiba FlexTouch U-100 100 unit/mL (3 mL) subcutaneous inpn 90 unit daily [Active]; Trulicity 0.75 mg/0.5 mL subcutaneous pnij 0.5 mL once wkly [Active]; venlafaxine 75 mg Oral cp24 once daily [Active]; - PMHx: 08:02 ADD/ADHD; DVT; Diabetes - NIDDM; Depression; Chronic pain; Bipolar disorder; Esophageal ss stricture; High Cholesterol; Hypertension; osteomyelitis; Pancreatitis; - PSHx: 08:02 Hysterectomy; colon resection; Appendectomy; ss - Immunization history:: Adult Immunizations unknown. - Social history:: Smoking status: unknown. - Immunization history: Last tetanus immunization: unknown. - Family history:: not pertinent. - Hospitalizations: : No recent hospitalization is reported. ROS: 08:11 Constitutional: Negative for fever, chills, and weight loss, Eyes: Negative for injury, rn pain, redness, and discharge, Neck: + neck pain Cardiovascular: Negative for chest pain, palpitations, and edema, Respiratory: Negative for shortness of breath, cough, wheezing, and pleuritic chest pain, Abdomen/GI: + abd pain Back: + back pain MS/Extremity: Negative for injury and deformity, Skin: Negative for laceration Neuro: + headache 08:11 All other systems are negative. Exam: 08:11 Constitutional: This is a well developed, well nourished patient who is awake, rn somnolent, awakens to voice Head/Face: Normocephalic, no focal swelling or laceration, + mild tenderness right occiput Eyes: Pupils equal round and reactive to light, extra-ocular motions intact. ENT: dry MM Neck: No midline tenderness, no swelling Chest/axilla: Normal chest wall appearance and motion. Nontender with no deformity. No lesions are appreciated. Cardiovascular: Regular rate and rhythm. No pulse deficits. Respiratory: Diminished breath sounds bilaterally. No increased work of breathing, no retractions or nasal flaring. Abdomen/GI: soft, no focal tenderness, + scattered bruising anterior abdominal wall, no ecchymosis of flank Back: No spinal tenderness. MS/ Extremity: Pulses equal, no cyanosis. Neurovascular intact. Full, normal range of motion. Equal circumference. Neuro: Somnolent, awakens to voice and tactile stimuli, moves all 4 extremities Vital Signs: 08:00 BP 155 / 78; Pulse 98; Resp 18; Temp 99.0(O); Pulse Ox 73% on R/A; Weight 131.09 kg; ss 09:00 BP 164 / 64; Pulse 100; Resp 17; Pulse Ox 97% on 45% BiPAP; hb 10:00 BP 127 / 73; Pulse 99; Resp 16; Pulse Ox 95% on 45% BiPAP; Pain 0/10; hb 11:00 BP 162 / 51; Pulse 97; Resp 17; Pulse Ox 94% on 45% BiPAP; Pain 0/10; hb 12:00 BP 147 / 89; Pulse 92; Resp 14; Pulse Ox 95% on BiPAP; sv 12:45 BP 140 / 82; Pulse 88; Resp 15; Pulse Ox 97% on BiPAP; sv 13:30 BP 130 / 81; Pulse 85; Resp 14; Pulse Ox 95% on BiPAP; sv 14:00 BP 130 / 81; Pulse 86; Resp 14; Pulse Ox 97% on 45% BiPAP; hb 15:00 BP 136 / 78; Pulse 86; Resp 21; Pulse Ox 97% on 45% BiPAP; hb 10:00 Martin (FACES) hb 09:00 16/7, R20, 45% FiO2 hb Criss Coma Score: 08:02 Eye Response: to voice(3). Verbal Response: confused(4). Motor Response: obeys ss commands(6). Total: 13. 08:11 Eye Response: spontaneous(4). Verbal Response: confused(4). Motor Response: obeys rn commands(6). Total: 14. Trauma Score (Adult): 08:02 Eye Response: to voice(0); Verbal Response: confused(1); Motor Response: obeys ss commands(2); Systolic BP: > 89 mm Hg(4); Respiratory Rate: 10 to 29 per min(4); Criss Score: 13; Trauma Score: 11 09:00 Eye Response: to voice(0); Verbal Response: confused(1); Motor Response: obeys hb commands(2); Systolic BP: > 89 mm Hg(4); Respiratory Rate: 10 to 29 per min(4); Nixon Score: 13; Trauma Score: 11 10:00 Eye Response: to voice(0); Verbal Response: confused(1); Motor Response: obeys hb commands(2); Systolic BP: > 89 mm Hg(4); Respiratory Rate: 10 to 29 per min(4); Criss Score: 13; Trauma Score: 11 11:00 Eye Response: to voice(0); Verbal Response: confused(1); Motor Response: obeys hb commands(2); Systolic BP: > 89 mm Hg(4); Respiratory Rate: 10 to 29 per min(4); Nixon Score: 13; Trauma Score: 11 12:00 Eye Response: to voice(0); Verbal Response: confused(1); Motor Response: obeys hb commands(2); Systolic BP: > 89 mm Hg(4); Respiratory Rate: 10 to 29 per min(4); Nixon Score: 13; Trauma Score: 11 13:00 Eye Response: to voice(0); Verbal Response: confused(1); Motor Response: obeys hb commands(2); Systolic BP: > 89 mm Hg(4); Respiratory Rate: 10 to 29 per min(4); Nixon Score: 13; Trauma Score: 11 14:00 Eye Response: to voice(0); Verbal Response: confused(1); Motor Response: obeys hb commands(2); Systolic BP: > 89 mm Hg(4); Respiratory Rate: 10 to 29 per min(4); Criss Score: 13; Trauma Score: 11 15:00 Eye Response: to voice(0); Verbal Response: confused(1); Motor Response: obeys hb commands(2); Systolic BP: > 89 mm Hg(4); Respiratory Rate: 10 to 29 per min(4); Nixon Score: 13; Trauma Score: 11 MDM: 07:59 Patient medically screened. rn 10:00 Differential Diagnosis: CVA, electrolyte abnormality, hypoglycemia, intracranial bleed, rn pneumonia, TIA, UTI, volume depletion. Differential Diagnosis: DKA, hypercapnia. Data reviewed: vital signs, nurses notes. Counseling: I had a detailed discussion with the patient and/or guardian regarding: the historical points, exam findings, and any diagnostic results supporting the discharge/admit diagnosis, lab results, radiology results, the need for further work-up and treatment in the hospital. Response to treatment: the patient's symptoms have mildly improved after treatment, and as a result, I will admit patient. Admission orders: after a detailed discussion of the patient's condition and case, the admit orders are written by me. ED course: Pt with neg CT for trauma, shows some enlargement of cavitary mass that she has had before, ABG shows hypercapnic acidosis, placed on bipap, admitted to Dr. Gallardo.. 11:32 ED course: Pt much more alert after BIPAP, likely CO2 retention as a result of rn benzodiazepine sedation.. 10/11 08:00 Order name: CBC with Diff; Complete Time: 08:54 rn 10/11 08:00 Order name: Basic Metabolic Panel; Complete Time: 09:07 rn 10/11 08:00 Order name: Protime (+inr); Complete Time: 09:07 rn 10/11 08:00 Order name: Ptt, Activated; Complete Time: 09:07 rn 10/11 08:00 Order name: Urine Microscopic Only; Complete Time: 09:57 rn 10/11 08:01 Order name: Ketone, Serum; Complete Time: 09:07 rn 10/11 08:01 Order name: Lactate; Complete Time: 09:07 rn 10/11 08:01 Order name: BNP; Complete Time: 09:07 rn 10/11 08:02 Order name: Urine Drug Screen; Complete Time: 11:29 rn 10/11 08:02 Order name: ETOH Level; Complete Time: 09:07 rn 10/11 08:03 Order name: COVID-19 : Document "Date of Symptom Onset" if Symptomatic. rn 10/11 08:03 Order name: ABG rn 10/11 08:04 Order name: ABG Arterial Blood Gas; Complete Time: 11:29 EDMS 10/11 08:00 Order name: CT Traumagram (Head C Spine CAP W Con); Complete Time: 09:07 rn 10/11 08:00 Order name: IV Start; Complete Time: 08:21 rn 10/11 08:00 Order name: Urine Dipstick-Ancillary (obtain specimen); Complete Time: 09:50 rn 10/11 08:00 Order name: XRAY Chest (1 view); Complete Time: 09:57 rn 10/11 08:01 Order name: Glucose Level; Complete Time: 08:21 rn 10/11 08:29 Order name: Glucose, Ancillary Testing; Complete Time: 08:54 EDMS 10/11 09:36 Order name: Urine Dipstick--Ancillary (enter results); Complete Time: 09:57 bd 10/11 09:39 Order name: SARS-COV-2 RT PCR; Complete Time: 09:57 EDMS 10/11 11:58 Order name: Lactate Sepsis 2 HR Follow-up; Complete Time: 15:10 EDHI 10/11 13:15 Order name: ABG Arterial Blood Gas; Complete Time: 15:10 EDHI Administered Medications: 08:50 Drug: SOLU-Medrol 125 mg Route: IVP; Site: right antecubital; hb 09:30 Follow up: Response: No adverse reaction hb 08:50 Drug: Xopenex (3) 1.25 mg Route: Inhalation; hb 09:40 Follow up: Response: No adverse reaction hb Point of Care Testing: Blood Glucose: 08:05 Blood Glucose: 330 mg/dL; hb Ranges: Critical Glucose Levels:Adult <50 mg/dl or >400 mg/dl <40 mg/dl or >180 mg/dl Disposition: 10:00 Critical Care:. rn Disposition: 10/11/20 10:02 Hospitalization ordered by Jose Luis Gallardo for Inpatient Admission. Preliminary diagnosis are Acute and chronic respiratory failure with hypercapnia, Hypoxemia, Altered mental status, unspecified, Superficial injury of head. - Bed requested for Telemetry/MedSurg (Inpatient). - Status is Inpatient Admission. hb - Condition is Stable. - Problem is an acute exacerbation. - Symptoms have improved. Critical care time excluding procedures: 10:00 Critical care time: Bedside Care: 25 minutes, Consultation: 5 minutes. Total time: 30 rn minutes Signatures: Dispatcher [employer] [facility] Binud Ordaz Roman, MD MD rn Smirch, Shelby, RN RN Elsa Campbell RN RN Corrections: (The following items were deleted from the chart) 08:51 08:04 CORONAVIRUS ordered. [facility] EDHI 13:51 10:02 Hospitalization Ordered by Jose Luis Gallardo MD for Inpatient Admission. Preliminary bd diagnosis is Acute and chronic respiratory failure with hypercapnia; Hypoxemia; Altered mental status, unspecified; Superficial injury of head. Bed requested for Telemetry/MedSurg (Inpatient). Status is Inpatient Admission. Condition is Stable. Problem is an acute exacerbation. Symptoms have improved. rn 15:55 13:51 10/11/2020 10:02 Hospitalization Ordered by Jose Luis Gallardo MD for Inpatient hb Admission. Preliminary diagnosis is Acute and chronic respiratory failure with hypercapnia; Hypoxemia; Altered mental status, unspecified; Superficial injury of head. Bed requested for Telemetry/MedSurg (Inpatient). Status is Inpatient Admission. Condition is Stable. Problem is an acute exacerbation. Symptoms have improved. bd
[2020-10-11 10:08] LABS: Barbiturates NEGATIVE (NEGATIVE); Benzodiazepines POSITIVE (NEGATIVE); Cocaine NEGATIVE (NEGATIVE); METHAMPHETAM NEGATIVE (NEGATIVE); Methadone NEGATIVE (NEGATIVE); Opiates NEGATIVE (NEGATIVE); Phencyclidine NEGATIVE (NEGATIVE); THC Cannibis NEGATIVE (NEGATIVE)
[2020-10-11 13:15] LABS: Arterial Blood Carboxyhemoglob 1.8 % (0-1.5); Blood Gas Oxyhemoglobin 87.5 % (94-97)
[2020-10-11] MEDS: IPRATROPIUM BROM 0.5MG/2.5ML NEB SCH ×2 (16:13→19:30)
[2020-10-11] MEDS ORDERED: ACETAMINOPHEN 500 MG TAB PO PRN (16:13)
[2020-10-11] MEDS ORDERED: ONDANSETRON 4 MG/2 ML VIAL IV PRN (16:13)
[2020-10-11 16:48] VITALS: BMI 41.4
[2020-10-11] MEDS: METHYLPREDNISOLONE 40 MG INJ IV SCH (19:16)
[2020-10-11] MEDS: ALBUTEROL 2.5 MG/3 ML NEB SOL NEB PRN (19:30)
[2020-10-11] MEDS ORDERED: D50W 25 GM/50 ML SYRINGE IV PRN (19:57)
[2020-10-11] MEDS ORDERED: GLUCAGON 1 MG/VIAL IM PRN (19:57)
[2020-10-11] MEDS: INSULIN -REGULAR HUMAN 50 UNIT/0.5 ML ML SQ SCH (22:12)
[2020-10-12] MEDS: METHYLPREDNISOLONE 40 MG INJ IV SCH ×3 (00:02→12:54)
[2020-10-12] MEDS: IPRATROPIUM BROM 0.5MG/2.5ML NEB SCH ×4 (03:00→19:45)
[2020-10-12] MEDS: ALBUTEROL 2.5 MG/3 ML NEB SOL NEB PRN (03:00)
[2020-10-12 05:33] LABS: Absolute Lymphocytes (CBC) 0.5 K/uL (0.7-4.9); Basophils % 0.1 % (0-1.3); Hematocrit 35.5 % (36.0-45.0); Lymphocytes % 7.7 % (15.3-44.8); MPV 8.9 fL (7.6-11.3); RBC Red Blood Cell Count 4.16 M/uL (3.86-4.86)
[2020-10-12 05:52] LABS: Albumin 2.8 g/dL (3.4-5.0); Bilirubin Total 0.3 mg/dL (0.2-1.0); Potassium 4.9 mmol/L (3.5-5.1); Protein, Total 6.5 g/dL (6.4-8.2)
--- NOTE | 2020-10-12 06:20 | EKG ---
Test Date: 2020-10-12 Test Time: 03:22:09 [place]: RT MEASUREMENT RESULTS: Intervals: Rate: 105 VA: 148 QRSD: 94 QT: 316 QTc: 417 Dante: P: 60 VA: 148 QRS: 55 T: 49 INTERPRETIVE STATEMENTS: Sinus tachycardia with frequent premature ventricular complexes Low voltage QRS Nonspecific T wave abnormality Abnormal ECG Compared to ECG 09/14/2020 13:02:43 Low QRS voltage now present T-wave abnormality now present Sinus rhythm no longer present Right-axis deviation no longer present Electronically Signed On 10-12-20 06:19:07 CDT by Geremias Cuellar
[2020-10-12 06:35] LABS: Blood Morphology Comment NOT SEEN (NOT SEEN); Platelet Estimate ADEQ; White Blood Cell Scan OK (OK)
[2020-10-12] MEDS: INSULIN -REGULAR HUMAN 50 UNIT/0.5 ML ML SQ SCH ×2 (09:36→11:30)
--- NOTE | 2020-10-12 09:37 | P.HP ---
Certification for Inpatient Patient admitted to: Inpatient With expected LOS: >2 Midnights Patient will require the following post-hospital care: None Practitioner: I am a practitioner with admitting privileges, knowledge of patient current condition, hospital course, and medical plan of care. Services: Services provided to patient in accordance with Admission requirements found in Title 42 Section 412.3 of the Code of Federal Regulations Patient History Date of Service: 10/11/20 Reason for admission: Hypercapnic respiratory distress History of Present Illness: Patient is a 54-year-old female who came to the hospital being lethargic. She has also been having some dystonic movements of her upper extremities. This has actually been going on for the last month. EMS was called after patient had been falling. She fell on 2 different occasions. The 2nd time the family was unable to lift her so they called the EMS who brought her to the emergency room. In the emergency room patient was found to be hypercapnic. Patient was brought into the hospital and placed on BiPAP. At this time will repeat ABGs. Advised patient to keep the BiPAP on. Continue monitoring patient very closely. Allergies pentazocine lactate [From Talwin] Allergy (Mild, Verified 02/19/20 21:04) Rash amoxicillin Allergy (Verified 02/19/20 21:04) Unknown aripiprazole [From Abilify] Allergy (Verified 02/19/20 21:04) Unknown meperidine [From Demerol] Allergy (Verified 02/19/20 21:04) Unknown Penicillins Allergy (Verified 02/19/20 21:04) Unknown Home Medications: Apixaban [Eliquis] 5 mg PO BID 02/19/20 Divalproex Sodium [Depakote ER] 1,500 mg PO BEDTIME 02/19/20 Furosemide [Lasix] 20 mg PO DAILY 02/19/20 Insulin Degludec [Tresiba Flextouch U-200] 60 units SQ DAILY 02/19/20 Insulin Lispro [Humalog Kwikpen U-100] 30 units SQ ACHS 02/19/20 OLANZapine [Zyprexa*] 15 mg PO BEDTIME 02/19/20 Omeprazole 1 cap PO DAILY 02/19/20 Pregabalin [Lyrica] 150 mg PO TID 02/19/20 Venlafaxine HCl [Venlafaxine HCl ER] 150 mg PO DAILY 02/19/20 Atorvastatin Calcium [Lipitor] 40 mg PO BEDTIME tab 02/23/20 Alprazolam [Xanax] 0.5 mg PO TID 10/11/20 Fluticasone/Salmeterol [Advair 250-50 Diskus] 1 dose IH DAILY 10/11/20 Insulin Degludec [Tresiba Flextouch U-200] 10/11/20 Umeclidinium Brm/Vilanterol Tr [Anoro Ellipta 62.5-25 Mcg INH] 1 dose IH DAILY 10/11/20 glipiZIDE [Glipizide] 5 mg PO BID 10/11/20 - Past Medical/Surgical History Has patient received pneumonia vaccine in the past: Yes Diabetic: Yes -: Diabetes mellitus type 2 -: Hyperlipidemia -: Bipolar disorder, [facility] -: Diverticulosis -: Right DVT with bilateral PE -: Carpal tunnel syndrome -: History of suicidal ideation -: Asthma -: Obstructive sleep apnea -: Tobacco abuse -: Mild sleep apnea -: dvt- right leg -: Appendectomy -: Hysterectomy -: Left knee surgery -: Carpal tunnel repair of the left wrist -: Colon resection due to diverticulitis -: cervical laminectomy infusion, lumbar herniated disc repair -: I/D of the left toe Psychosocial/ Personal History: She has never been . She has 1 son. She does not work. She currently lives with her mother. - Family History Father Medical History: Heart disease Mother Medical History: Heart disease, Hypertension, Diabetes, Cancer Notes: breast cancer - Social History Smoking Status: Current every day smoker Place of Residence: Home Review of Systems 10-point ROS is otherwise unremarkable Physical Examination - Vital Signs Temperature: 97 F Blood Pressure: 129/57 Pulse: 94 Respirations: 20 Pulse Ox (%): 92 - Physical Exam General: Alert, In no apparent distress, Oriented x1, Confused HEENT: Atraumatic, PERRLA, Mucous membr. moist/pink, EOMI, Sclerae nonicteric Neck: Supple, 2+ carotid pulse no bruit, No LAD, Without JVD or thyroid abnormality Respiratory: Clear to auscultation bilaterally, Normal air movement Cardiovascular: Regular rate/rhythm, Normal S1 S2, No murmurs Gastrointestinal: Normal bowel sounds, Soft and benign, Non-distended, No te nderness Musculoskeletal: No clubbing, No tenderness, Swelling Integumentary: No rashes Neurological: Sensation intact, Cranial nerves 3-12 intact, Normal affect, Abnormal gait, Abnormal speech, Abnormal strength, Abnormal tone Lymphatics: No axilla or inguinal lymphadenopathy Assessment & Plan - Problems (Diagnosis) (1) Hypercapnic respiratory failure Current Visit: Yes Status: Acute (2) Altered mental status Current Visit: No Status: Acute Qualifiers: Altered mental status type: somnolence Qualified Code(s): R40.0 - Somnolence (3) Bipolar disorder Onset Date: 02/14/16 Current Visit: No Status: Chronic Qualifiers: Active/Remission status: remission status unspecified Qualified Code(s): F31.9 - Bipolar disorder, unspecified (4) CAD (coronary artery disease) Current Visit: No Status: Chronic Qualifiers: Coronary Disease-Associated Artery/Lesion type: [place] artery [place] vs. transplanted heart: [place] heart Associated angina: without angina Qualified Code(s): I25.10 - Atherosclerotic heart disease of [place] coronary artery without angina pectoris (5) CKD (chronic kidney disease) stage 3, GFR 30-59 ml/min Onset Date: 06/10/18 Current Visit: No Status: Chronic (6) Diabetes mellitus type II, non insulin dependent Onset Date: 02/14/16 Current Visit: No Status: Chronic (7) GERD (gastroesophageal reflux disease) Onset Date: 01/12/17 Current Visit: No Status: Chronic Qualifiers: Esophagitis presence: esophagitis presence not specified Qualified Code(s): K21.9 - Gastro-esophageal reflux disease without esophagitis (8) History of pulmonary embolus (PE) Current Visit: No Status: Chronic (9) Hyperlipidemia Onset Date: 02/14/16 Current Visit: No Status: Chronic Qualifiers: Hyperlipidemia type: unspecified Qualified Code(s): E78.5 - Hyperlipidemia, unspecified (10) Hypertension Onset Date: 01/12/17 Current Visit: No Status: Chronic Qualifiers: Hypertension type: essential hypertension Qualified Code(s): I10 - Essential (primary) hypertension (11) Obesity Onset Date: 01/12/17 Current Visit: No Status: Chronic Qualifiers: Obesity type: unspecified obesity type - Plan Plan: 1. Continue with albuterol and Atrovent nebs 2. Continue with IV steroids 3. BIPAP support 4. Pulmonary consult 5. Room air O2 sats 6. Repeat chest x-ray in the morning 7. Monitor neurologic status; adjust meds 8. GI and DVT prophylaxis Discharge Plan: Home Plan to discharge in: Greater than 2 days - Advance Directives Does patient have a Living Will: No Does patient have a Durable POA for Healthcare: No - Code Status/Comfort Care Code Status Assessed: Yes Code Status: Full Code Critical Care: No Time Spent Managing PTS Care (In Minutes): 45
[2020-10-12] MEDS: glipiZIDE 5 MG TAB PO SCH ×2 (09:38→21:25)
--- NOTE | 2020-10-12 09:42 | P.PN ---
Subjective Date of Service: 10/12/20 Patient doing better. Hypercapnia has improved. Will need outpatient sleep study and outpatient arrangements for home oxygen. Review of Systems 10-point ROS is otherwise unremarkable Physical Examination - Vital Signs Temperature: 97 F Blood Pressure: 129/57 Pulse: 94 Respirations: 20 Pulse Ox (%): 92 - Physical Exam General: Alert, In no apparent distress Respiratory: Clear to auscultation bilaterally, Normal air movement Cardiovascular: Regular rate/rhythm, Normal S1 S2 Gastrointestinal: Normal bowel sounds, No tenderness Musculoskeletal: No tenderness Integumentary: No rashes Neurological: Normal speech, Normal tone, Normal affect Lymphatics: No axilla or inguinal lymphadenopathy - Studies Medications List Reviewed: Yes Assessment & Plan - Problems (Diagnosis) (1) Hypercapnic respiratory failure Status: Acute Qualifiers: Chronicity: acute on chronic Qualified Code(s): J96.22 - Acute and chronic respiratory failure with hypercapnia (2) Altered mental status Status: Acute Qualifiers: Altered mental status type: somnolence Qualified Code(s): R40.0 - Somnolence (3) Bipolar disorder Onset Date: 02/14/16 Status: Chronic Qualifiers: Active/Remission status: remission status unspecified Qualified Code(s): F31.9 - Bipolar disorder, unspecified (4) CAD (coronary artery disease) Status: Chronic Qualifiers: Coronary Disease-Associated Artery/Lesion type: [place] artery [place] vs. transplanted heart: [place] heart Associated angina: without angina Qualified Code(s): I25.10 - Atherosclerotic heart disease of [place] coronary artery without angina pectoris (5) CKD (chronic kidney disease) stage 3, GFR 30-59 ml/min Onset Date: 06/10/18 Status: Chronic (6) Diabetes mellitus type II, non insulin dependent Onset Date: 02/14/16 Status: Chronic (7) GERD (gastroesophageal reflux disease) Onset Date: 01/12/17 Status: Chronic Qualifiers: Esophagitis presence: esophagitis presence not specified Qualified Code(s): K21.9 - Gastro-esophageal reflux disease without esophagitis (8) History of pulmonary embolus (PE) Status: Chronic (9) Hyperlipidemia Onset Date: 02/14/16 Status: Chronic Qualifiers: Hyperlipidemia type: unspecified Qualified Code(s): E78.5 - Hyperlipidemia, unspecified (10) Hypertension Onset Date: 01/12/17 Status: Chronic Qualifiers: Hypertension type: essential hypertension Qualified Code(s): I10 - Essential (primary) hypertension (11) Obesity Onset Date: 01/12/17 Status: Chronic Qualifiers: Obesity type: unspecified obesity type - Plan Plan: 1. Continue with albuterol and Atrovent nebs 2. Continue with IV steroids 3. BIPAP support 4. Pulmonary consult 5. Room air O2 sats 6. Repeat chest x-ray in the morning 7. Monitor neurologic status; adjust meds 8. GI and DVT prophylaxis Discharge Plan: Home Plan to discharge in: Greater than 2 days - Advance Directives Does patient have a Living Will: No Does patient have a Durable POA for Healthcare: No - Code Status/Comfort Care Code Status: Full Code Critical Care: No Time Spent Managing PTS Care (In Minutes): 35
[2020-10-12 10:01] LABS: Arterial Blood Carboxyhemoglob 1.5 % (0-1.5); Blood Gas Oxyhemoglobin 88.1 % (94-97); Blood O2 Saturation 90.5 % (92-98.5)
[2020-10-12] MEDS: INSULIN LISPRO 100 UNIT/1 ML SQ SCH ×3 (12:54→21:25)
[2020-10-12] MEDS: ALPRAZOLAM 0.5 MG TABLET PO SCH ×2 (12:55→22:12)
--- NOTE | 2020-10-12 12:56 | P.CNS ---
Date of Consult: 10/12/20 Reason for Consult: Respiratory failure Chief Complaint: Hypercapnic respiratory distress History of Present Illness: Patient is 54 years of age brought to the hospital lethargic apparently she has some benzodiazepines at home she may have taken excess amount she is more alert responsive today history of sleep apnea refuse CPAP also has a history of COPD was compliant with her inhaler she is doing much better Allergies pentazocine lactate [From Talwin] Allergy (Mild, Verified 02/19/20 21:04) Rash amoxicillin Allergy (Verified 02/19/20 21:04) Unknown aripiprazole [From Abilify] Allergy (Verified 02/19/20 21:04) Unknown meperidine [From Demerol] Allergy (Verified 02/19/20 21:04) Unknown Penicillins Allergy (Verified 02/19/20 21:04) Unknown Home Medications: Apixaban [Eliquis] 5 mg PO BID 02/19/20 Divalproex Sodium [Depakote ER] 1,500 mg PO BEDTIME 02/19/20 Furosemide [Lasix] 20 mg PO DAILY 02/19/20 Insulin Degludec [Tresiba Flextouch U-200] 60 units SQ DAILY 02/19/20 Insulin Lispro [Humalog Kwikpen U-100] 30 units SQ ACHS 02/19/20 OLANZapine [Zyprexa*] 15 mg PO BEDTIME 02/19/20 Omeprazole 1 cap PO DAILY 02/19/20 Pregabalin [Lyrica] 150 mg PO TID 02/19/20 Venlafaxine HCl [Venlafaxine HCl ER] 150 mg PO DAILY 02/19/20 Atorvastatin Calcium [Lipitor] 40 mg PO BEDTIME tab 02/23/20 Alprazolam [Xanax] 0.5 mg PO TID 10/11/20 Fluticasone/Salmeterol [Advair 250-50 Diskus] 1 dose IH DAILY 10/11/20 Insulin Degludec [Tresiba Flextouch U-200] 10/11/20 Umeclidinium Brm/Vilanterol Tr [Anoro Ellipta 62.5-25 Mcg INH] 1 dose IH DAILY 10/11/20 glipiZIDE [Glipizide] 5 mg PO BID 10/11/20 - Past Medical/Surgical History Diabetic: Yes -: Diabetes mellitus type 2 -: Hyperlipidemia -: Bipolar disorder, [facility] -: Diverticulosis -: Right DVT with bilateral PE -: Carpal tunnel syndrome -: History of suicidal ideation -: Asthma -: Obstructive sleep apnea -: Tobacco abuse -: Mild sleep apnea -: dvt- right leg -: Appendectomy -: Hysterectomy -: Left knee surgery -: Carpal tunnel repair of the left wrist -: Colon resection due to diverticulitis -: cervical laminectomy infusion, lumbar herniated disc repair -: I/D of the left toe Psychosocial/ Personal History: She has never been . She has 1 son. She does not work. She currently lives with her mother. - Family History Father Medical History: Heart disease Mother Medical History: Heart disease, Hypertension, Diabetes, Cancer Notes: breast cancer - Social History Smoking Status: Unknown if ever smoked Alcohol use: No CD- Drugs: No Caffeine use: Yes Place of Residence: Home Review of Systems 10-point ROS is otherwise unremarkable General: Weakness Respiratory: Shortness of Breath Physical Examination Temp Pulse Resp BP Pulse Ox 98.4 F 94 H 19 164/92 H 93 10/12/20 12:00 10/12/20 12:00 10/12/20 12:00 10/12/20 12:00 10/12/20 12:00 General: Alert, In no apparent distress, Oriented x3 Respiratory: Clear to auscultation bilaterally, Diminished, Expiratory wheezes Cardiovascular: No edema, Regular rate/rhythm - Problems (1) Hypercapnic respiratory failure Current Visit: Yes Status: Acute Plan: Patient is 54 years of age admitted with unresponsive deaf hypoxic hypercapnic respiratory failure may be due to access use of benzodiazepine she does have some mild COPD underlying possible sleep apnea refuses to use a CPAP machine vital signs reviewed agree with nasal cannula oxygen chest x-ray shows some cardiomegaly otherwise clear BNP less than 500 plan for discharge evaluate for home O2 also hypoxic hypercapnic she has bronchodilators at home as a problem in non compliant due to her bipolar disease Qualifiers: Chronicity: acute on chronic Qualified Code(s): J96.22 - Acute and chronic respiratory failure with hypercapnia
[2020-10-12] MEDS: PREGABALIN 150 MG CAP PO SCH ×2 (13:01→21:25)
[2020-10-12] MEDS ORDERED: ATORVASTATIN 40 MG TAB PO SCH (21:00)
[2020-10-12] MEDS ORDERED: DIVALPROEX ER 250 MG TAB PO SCH (21:00)
[2020-10-12] MEDS ORDERED: OLANZapine 10 MG TABLET PO SCH (21:00)
[2020-10-12] MEDS: APIXABAN 5 MG TABLET PO SCH (21:24)
[2020-10-12] MEDS: predniSONE 20 MG TAB PO SCH (21:25)
[2020-10-13] MEDS: IPRATROPIUM BROM 0.5MG/2.5ML NEB SCH ×3 (02:25→14:00)
[2020-10-13 03:06] VITALS: O2SAT 95
[2020-10-13] MEDS ORDERED: PANTOPRAZOLE 40MG TABLET PO SCH (06:30)
[2020-10-13] MEDS: INSULIN LISPRO 100 UNIT/1 ML SQ SCH ×3 (07:30→17:19)
[2020-10-13] MEDS ORDERED: DULERA 100/5 (MOMETASONE/FORMOTEROL) INHALER IH SCH (08:00)
[2020-10-13] MEDS ORDERED: VENLAFAXINE HCL XR 75 MG CAP PO SCH (09:00)
[2020-10-13] MEDS ORDERED: FUROSEMIDE 20 MG TABLET PO SCH (09:00)
[2020-10-13] MEDS ORDERED: HOME MED 1 EA UNK (Insulin Degludec [Tresiba Flextouch U-200] 200 UNIT/ML Insuln.Pen) SQ SCH (09:00)
[2020-10-13] MEDS ORDERED: HOME MED 1 EA UNK (Umeclidinium Brm/Vilanterol Tr [Anoro Ellipta 62.5-25 Mcg Inh] Blst.W.D IH SCH (09:00)
[2020-10-13] MEDS: PREGABALIN 150 MG CAP PO SCH ×2 (09:20→14:43)
[2020-10-13] MEDS: predniSONE 20 MG TAB PO SCH (09:21)
[2020-10-13] MEDS: ALPRAZOLAM 0.5 MG TABLET PO SCH ×2 (09:22→14:43)
[2020-10-13] MEDS: APIXABAN 5 MG TABLET PO SCH (09:22)
[2020-10-13] MEDS: glipiZIDE 5 MG TAB PO SCH (09:22)
--- NOTE | 2020-10-13 12:51 | P.PN ---
Subjective Date of Service: 10/13/20 Chief Complaint: COPD exacerbation Subjective: Improving (Patient is doing much better she is very alert responsive cooperative wants to go home back to her baseline) Review of Systems 10-point ROS is otherwise unremarkable Respiratory: Shortness of Breath Physical Examination - Vital Signs Temperature: 97.9 F Blood Pressure: 150/72 Pulse: 67 Respirations: 20 Pulse Ox (%): 95 - Physical Exam General: Alert, Oriented x3 Respiratory: Clear to auscultation bilaterally, Diminished Cardiovascular: No edema, Normal S1 S2 - Studies Medications List Reviewed: Yes Assessment & Plan - Problems (Diagnosis) (1) Hypercapnic respiratory failure Current Visit: Yes Status: Acute Plan: Patient is 54 years of age admitted with hypoxic hypercapnic respiratory failure may be from excessive use of benzodiazepines currently back to her baseline patient has significant desaturation in room air and qualify for home O2 patient to resume her bronchodilators at home can go home on some steroids follow-up with me next week Qualifiers: Chronicity: acute on chronic Qualified Code(s): J96.22 - Acute and chronic respiratory failure with hypercapnia
[2020-10-19 04:59] VITALS: BP 129/57; TEMP 97
--- NOTE | 2020-10-19 05:01 | P.DS ---
Discharge Date: 10/13/20 Disposition: ROUTINE DISCHARGE Discharge Condition: GOOD Reason for Admission: COPD exacerbation Consultations: Pulmonary - Problems (1) Hypercapnic respiratory failure Status: Acute Qualifiers: Chronicity: acute on chronic Qualified Code(s): J96.22 - Acute and chronic respiratory failure with hypercapnia (2) Altered mental status Status: Acute Qualifiers: Altered mental status type: somnolence Qualified Code(s): R40.0 - Somnolence (3) Bipolar disorder Onset Date: 02/14/16 Status: Chronic Qualifiers: Active/Remission status: remission status unspecified Qualified Code(s): F31.9 - Bipolar disorder, unspecified (4) CAD (coronary artery disease) Status: Chronic Qualifiers: Coronary Disease-Associated Artery/Lesion type: [place] artery [place] vs. transplanted heart: [place] heart Associated angina: without angina Qualified Code(s): I25.10 - Atherosclerotic heart disease of [place] coronary artery without angina pectoris (5) CKD (chronic kidney disease) stage 3, GFR 30-59 ml/min Onset Date: 06/10/18 Status: Chronic (6) Diabetes mellitus type II, non insulin dependent Onset Date: 02/14/16 Status: Chronic (7) GERD (gastroesophageal reflux disease) Onset Date: 01/12/17 Status: Chronic Qualifiers: Esophagitis presence: esophagitis presence not specified Qualified Code(s): K21.9 - Gastro-esophageal reflux disease without esophagitis (8) History of pulmonary embolus (PE) Status: Chronic (9) Hyperlipidemia Onset Date: 02/14/16 Status: Chronic Qualifiers: Hyperlipidemia type: unspecified Qualified Code(s): E78.5 - Hyperlipidemia, unspecified (10) Hypertension Onset Date: 01/12/17 Status: Chronic Qualifiers: Hypertension type: essential hypertension Qualified Code(s): I10 - Essential (primary) hypertension (11) Obesity Onset Date: 01/12/17 Status: Chronic Qualifiers: Obesity type: unspecified obesity type Brief History of Present Illness: Patient is a 54-year-old female who came to the hospital being lethargic. She has also been having some dystonic movements of her upper extremities. This has actually been going on for the last month. EMS was called after patient had been falling. She fell on 2 different occasions. The 2nd time the family was unable to lift her so they called the EMS who brought her to the emergency room. In the emergency room patient was found to be hypercapnic. Patient was brought into the hospital and placed on BiPAP. At this time will repeat ABGs. Advised patient to keep the BiPAP on. Continue monitoring patient very closely. Hospital Course: Patient was placed on BiPAP and patient's respiratory status has improved. Patient will need outpatient sleep study. We will also arrange for home oxygen. Patient will follow up with pulmonary in 1-2 weeks. Vital Signs/Physical Exam: Temp Pulse Resp BP Pulse Ox 97 F 94 H 20 129/57 L 92 10/19/20 04:59 10/19/20 04:59 10/19/20 04:59 10/19/20 04:59 10/19/20 04:59 General: Alert, In no apparent distress, Oriented x3 Laboratory Data at Discharge: WBC 6.20 K/uL (4.3-10.9) D 10/12/20 05:06 Hgb 11.5 g/dL (12.0-15.0) L 10/12/20 05:06 Hct 35.5 % (36.0-45.0) L 10/12/20 05:06 Plt Count 156 K/uL (152-406) 10/12/20 05:06 PT 12.2 SECONDS (9.5-12.5) 10/11/20 08:14 INR 1.06 10/11/20 08:14 APTT 27.9 SECONDS (24.3-36.9) 10/11/20 08:14 Sodium 142 mmol/L (136-145) 10/12/20 05:06 Potassium 4.9 mmol/L (3.5-5.1) 10/12/20 05:06 BUN 21 mg/dL (7-18) H 10/12/20 05:06 Creatinine 1.01 mg/dL (0.55-1.3) 10/12/20 05:06 Glucose 400 mg/dL (74-106) H 10/12/20 05:06 Total Bilirubin 0.3 mg/dL (0.2-1.0) 10/12/20 05:06 AST 18 U/L (15-37) 10/12/20 05:06 ALT 26 U/L (12-78) 10/12/20 05:06 Alkaline Phosphatase 87 U/L (45-117) 10/12/20 05:06 Home Medications: Apixaban [Eliquis] 5 mg PO BID 02/19/20 Divalproex Sodium [Depakote ER] 1,500 mg PO BEDTIME 02/19/20 Furosemide [Lasix] 20 mg PO DAILY 02/19/20 Insulin Lispro [Humalog Kwikpen U-100] 30 units SQ ACHS 02/19/20 OLANZapine [Zyprexa*] 15 mg PO BEDTIME 02/19/20 Omeprazole 1 cap PO DAILY 02/19/20 Pregabalin [Lyrica] 150 mg PO TID 02/19/20 Venlafaxine HCl [Venlafaxine HCl ER] 150 mg PO DAILY 02/19/20 Atorvastatin Calcium [Lipitor] 40 mg PO BEDTIME tab 02/23/20 Alprazolam [Xanax] 0.5 mg PO TID 10/11/20 Fluticasone/Salmeterol [Advair 250-50 Diskus] 1 dose IH DAILY 10/11/20 Insulin Degludec [Tresiba Flextouch U-200] 10/11/20 Umeclidinium Brm/Vilanterol Tr [Anoro Ellipta 62.5-25 Mcg INH] 1 dose IH DAILY 10/11/20 glipiZIDE [Glipizide] 5 mg PO BID 10/11/20 Albuterol Neb [Proventil 0.083% Neb Soln] 2.5 mg NEB [id number] PRN #60 amp 10/13/20 Insulin Degludec [Tresiba Flextouch U-200] 60 units SQ DAILY #2 10/13/20 Ipratropium Neb [Atrovent*] 0.5 mg NEB [id number] #60 amp 10/13/20 Pregabalin [Lyrica] 50 mg PO TID #90 cap 10/13/20 predniSONE [Prednisone*] 20 mg PO BID #18 tab 10/13/20 New Medications: Ipratropium Neb [Atrovent*] 0.5 mg NEB [id number] #60 amp Insulin Degludec [Tresiba Flextouch U-200] 60 units SQ DAILY #2 Pregabalin [Lyrica] 50 mg PO TID #90 cap predniSONE [Prednisone*] 20 mg PO BID #18 tab Albuterol Neb [Proventil 0.083% Neb Soln] 2.5 mg NEB [id number] PRN #60 amp PRN Reason: COPD EXACERBATION Physician Discharge Instructions: OK TO DC IV AND DC HOME FOLLOW-UP WITH PRIMARY CARE PROVIDER IN 1-2 WEEKS FOLLOW-UP WITH Pulmonary IN 1-2 WEEKS RETURN TO THE ER IF symptoms worsen CALL or TEXT DR. GREY AT [phone] IF ANY QUESTIONS REGARDING HOSPITAL STAY. PLEASE CALL THE FLOOR AT [phone] IF ANY MEDICATION OR NURSING QUESTIONS. Arrange for outpatient sleep study Diet: Low sodium Activity: Fall precautions Followup: Bryant Batista MD [ACTIVE - CAN ADMIT] - Juanita Neely PAC [Primary Care Provider] - Time spent managing pt's care (in minutes): 35
== END 2020-10-13 17:51 | disposition home or self-care (01) | DRG 189 ==
LOC: ER 07:57 → 2ND 15:49
PROVIDERS: ADMIT Hospitalist; ATTEND Hospitalist
PROC: 5A09457 Assistance with Respiratory Ventilation, 24-96 Consecutive Hours, Continuous Positive Airway Pressure (ICD-10-PCS; principal; 2020-10-11)
DX: J96.22 Acute and chronic respiratory failure with hypercapnia (principal); Z68.41 Body mass index [BMI] 40.0-44.9, adult; E66.9 Obesity, unspecified; E78.5 Hyperlipidemia, unspecified; F17.200 Nicotine dependence, unspecified, uncomplicated; I25.10 Atherosclerotic heart disease of native coronary artery without angina pectoris; I12.9 Hypertensive chronic kidney disease with stage 1 through stage 4 chronic kidney disease, or unspecified chronic kidney disease; N18.30 Chronic kidney disease, stage 3 unspecified; E11.22 Type 2 diabetes mellitus with diabetic chronic kidney disease; J44.9 Chronic obstructive pulmonary disease, unspecified; F31.9 Bipolar disorder, unspecified; J96.21 Acute and chronic respiratory failure with hypoxia; G89.29 Other chronic pain; W06.XXXA Fall from bed, initial encounter; Z88.1 Allergy status to other antibiotic agents; Z88.0 Allergy status to penicillin; Z88.8 Allergy status to other drugs, medicaments and biological substances; Z79.01 Long term (current) use of anticoagulants; Z79.4 Long term (current) use of insulin; Z79.899 Other long term (current) drug therapy; Z86.718 Personal history of other venous thrombosis and embolism; Z90.710 Acquired absence of both cervix and uterus; Z90.49 Acquired absence of other specified parts of digestive tract; Z91.81 History of falling; Z86.711 Personal history of pulmonary embolism; Z91.5 Personal history of self-harm; Z53.29 Procedure and treatment not carried out because of patient's decision for other reasons; Z79.52 Long term (current) use of systemic steroids; Z20.822 Contact with and (suspected) exposure to COVID-19
CPT/HCPCS: 36415; 51702; 70450; 71045; 71260; 72125; 74177; 80048; 80053; 80307; 80320; 81003; 81015; 82010; 82565; 82805; 82947; 83605; 83880; 85025; 85610; 85730; 93005; 94660; 96374; 99285; G0390; J1815; J2920; J2930; J7512; J7606; Q9967; U0003

== ENCOUNTER 2021-01-31 00:54 | Emergency (ER) | payer OTHER ==
--- OUTSIDE RECORDS SUMMARY | 2021-01-31 00:59 | XMS REPORT | Continuity of Care Document ---
:1965 Author Organization [facility] t Address [address] [place] [address] Care Team Providers Name Role Phone BANKI [...] Mem oria 04-17 08:18:00 l UNK 00:00: [place] 00 Active 04/17/2018 [place] GERD WO Diagnosis Active 2018-04-25 Me moria ESOPHAGITI 04-17 06:46:00 l S GERD WO 00:00: [place] ESOPHAGITI 00 S Active 04/17/2018 [facility] K21.9, Diagnosis Active 2018-04-17 Mem oria R13.10, 04-04 08:54:00 l K44.9 K21.9, 00:00: [place] R13.10, 00 K44.9 Active 04/04/2018 [facility] History of History of Problem Resolve [...] 2018-12-18 M emoria unspecifie 11:14:16 l d [place] Dysphagia, unspecifie d 12/18/2018 [facility] Gastro-eso Problem 2018-12-18 M emoria phageal 11:14:16 l reflux [place] disease Gastro-eso without phageal esophagiti reflux s disease without esophagiti s 12/18/2018 [facility] Diaphragma Problem 2018-11-04 M emoria tic hernia 12:20:16 l without [place] 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 11/04/2018 [facility] Gastritis, Problem 2018-11-10 M emoria unspecifie 12:35:52 l d, without Jb n bleeding Gastritis, unspecifie d, without bleeding 11/10/2018 [facility] Chronic Problem 2018-11-10 Tae ivan obstructiv 12:35:52 l e Chronic Mario pulmonary obstructiv disease, e unspecifie pulmonary d disease, unspecifie d 11/10/2018 [facility] Sleep Problem 2018-11-10 Memor ia apnea, 12:35:52 l unspecifie Sleep Lynsey nn d apnea, unspecifie d 11/10/2018 [facility] Type 2 Problem 2018-11-12 Memor ia diabetes 12:44:11 l mellitus Type 2 Jb n without diabetes complicati mellitus ons without complicati ons 11/12/2018 [facility] intermediate designer Problem 2018-11-10 Me moria (current) 12:35:52 l use of Long [place] oral term hypoglycem (current) ic drugs use of oral hypoglycem ic drugs 11/10/2018 [facility] Other long Problem 2018-11-10 M emoria term 12:35:52 l (current) Other Jb n drug intermediate designer therapy (current) drug therapy 11/10/2018 [facility] Nicotine Problem 2018-11-12 Mem oria dependence 12:44:11 l , Nicotine Jb n cigarettes dependence , , uncomplica cigarettes noris , uncomplica noris 11/12/2018 [facility] Deep Problem Resolve 2018-12-18 Tae ivan venous d 11:14:16 l thrombosis Deep Jb n (disorder) venous thrombosis (disorder) Resolved Problem 12/18/2018 [facility] Pulmonary Problem Resolve 2018-12-18 M emoria thromboemb d 11:14:16 l olism Mario (disorder) Pulmonary thromboemb olism (disorder) Resolved Problem 12/18/2018 [facility] Anxiety Problem Active 2018-12-18 Tae ivan (finding) 11:14:16 l Anxiety Mario (finding) Active Problem 12/18/2018 [facility] Chronic Problem Active 2018-12-18 Tae ivan obstructiv 11:14:16 l e lung Chronic [place] disease obstructiv (disorder) e lung disease (disorder) Active Problem 12/18/2018 [facility] Diabetes Problem Active 2018-12-18 Mem oria mellitus 11:14:16 l (disorder) Diabetes He rmann mellitus (disorder) Active Problem 12/18/2018 [facility] Dyspnea on Problem Active 2018-12-18 M emoria exertion 11:14:16 l (finding) Dyspnea Herm ayana on exertion (finding) Active Problem 12/18/2018 [facility] Gastroesop Problem Active 2018-12-18 M emoria hageal 11:14:16 l reflux [place] disease Gastroesop (disorder) hageal reflux disease (disorder) Active Problem 12/18/2018 [facility] Pulmonary Problem Active 2018-12-18 Me moria emphysema 11:14:16 l (disorder) Jb n Pulmonary emphysema (disorder) Active Problem 12/18/2018 [facility] Sleep Problem Active 2018-12-18 Memor ia apnea 11:14:16 l (finding) Sleep Jb n apnea (finding) Active Problem 12/18/2018 [facility] DYSPHAGIA, Diagnosis Active 2018-07-11 Memoria UNSPECIFIE 12:49:00 l D [place] DYSPHAGIA, UNSPECIFIE D Active [facility] GASTRO-ESO Diagnosis Active 2018-04-25 Memoria PHAGEAL 06:46:00 l REFLUX [place] DISEASE GASTRO-ESO WITHOUT PHAGEAL REFLUX DISEASE WITHOUT Active [facility] DIAPHRAGMA Diagnosis Active 2018-04-17 Memoria TIC HERNIA 08:54:00 l WITHOUT Mario OBSTRUCTIO DIAPHRAGMA N TIC HERNIA WITHOUT OBSTRUCTIO N Active [facility] History of History of Problem Resolve Univers bipolar bipolar [id number] d ity of disorder disorder [place] [facility] History of Past Illness Condition Condition Condition Status Onset Resolution Last Treating Co mments Source Name Details Category Date Date Treatment Clinician Date Epigastric Problem 2017-072018-12-18 2018-12-18 Memoria pain 2-28 11:14:16 11:14:16 l 04:44: [place] Epigastric 43 pain 07/19/2018 12/18/2018 [facility] Achalasia Problem 2017-072018-11-12 2018-11-12 Memoria of cardia 0-10 12:44:11 12:44:11 l 03:32: [place] Achalasia 00 of cardia 05/01/2018 11/12/2018 [facility] Allergies, Adverse Reactions, Alerts Allergy Allergy [...] penicill Active Memori a ins ins l [place] Talwin Talwin Active Memoria l [place] Penicill drug Active Univers ins allergy [facility] [place] [facility] Family History Family Member Diagnosis Comments Start Date Stop Date Source Mother Family history of [facility] [place] malignant neoplasm Physic ians of breast Social History Smoking Status Start Date Stop Date Source Smoker. current status [facility] [place] unknown Physicians Social History 2018-04-25 13:52:33 [facility] myers Medications Ordered Filled Start Stop Current Ordering Indication Dosage Frequency Signature Comments Components Source Medication Medication Date Date Medication? Clinician (SIG) Name Name Jazmine Lucero Yes Navneet as [facility] Tramadol Tramadol 2020- No Navneet [address] [facility] [facility] HCl HCl 08-29 Call as needed [facility] 00 :[facility] Oxycodone 2017-07 No 5 [...] oria ne 0-04 Route: l 16:19: IVP, [place] 00 Q5Min, Dosing Weight 113.636, kg, PRN [...] ivan 0-04 Route: l 16:19: IVP, PRN, [place] 00 Dosing Weight 113.636, kg, PRN Benzodiaze [...] moria e 0-04 Route: l 16:19: IVPB, [place] 00 ONCE, Dosing Weight 113.636, kg, PRN [...] (ANES) 0-04 Drug form: l 14:44: ERFILM, [place] 00 ONCE, Stop date: 04/25/18 9:44:00 CDT dexamethaso 2017-07 No Route: IV, Memoria ne (ANES) 0-04 Drug form: l 14:44: INJ, ONCE, Stop date: 04/25/18 9:44:00 CDT midazolam 2017-07 No Route: IV, Me moria (ANES) 0-04 Drug form: l 14:34: SOLN, [place] 00 ONCE, Stop date: 04/25/18 9:34:00 CDT Sodium 2017-07 No Route: IV, Memor ia Chloride 0-04 Total l 0.9% IV 13:58: Volume: Mario (ANES) 1000 00 1,000, mL Start date: 04/25/18 8:58:00 CDT, Stop date: 04/25/18 9:58:00 CDT Calcium 2017-07 No 1,000 mL, Memor ia Chloride 0-04 Rate: 25 l 0.0014 13:50: ml/hr, [place] MEQ/ML / 00 Infuse Potassium over: 40 [...] tab, PO, l oral 19:57: BID, 0 [place] enteric 00 Refill(s) coated tablet pregabalin Yes 150 mg = 1 M emoria 150 MG Oral 04-19 cap, PO, l Capsule 19:57: QAM, 0 [place] [Lyrica] 00 Refill(s) venlafaxine Yes 150 mg = 1 Memoria 150 mg oral 9-28 tab, PO, l tablet, 19:57: QAM, # 30 Lynsey nn extended 00 tab, 0 release Refill(s) olanzapine Yes 5 mg = 1 Mem oria 5 MG Oral 9-28 tab, PO, l Tablet 19:56: QAM, 0 [place] 00 Refill(s) pioglitazon Yes 30 mg = [...] tab, PO, l tablet, 19:55: BID, 0 [place] extended 00 Refill(s) release Olanzapine Olanzapine Yes [...] [facility] Yes Navneet [address] [facility] [address] [facility] Omeprazole Omeprazole Yes Navneet (Prior [facility] Call Auth#:0000 [facility] - [id number]) [facility] Clinics Pantoprazol Pantoprazol Yes R.N. U nivers e Sodium 40 e Sodium 40 i ty of MG Oral MG Oral [place] Tablet Tablet Physici Delayed Delayed ans Release Release atorvastati atorvastati Yes Navneet 1 tablet [facility] [...] St Call defined [facility] Lyrica Lyrica Yes Navneet not [facility] Call defined [facility] Metformin Metformin Yes Navneet [address] HCl HCl Call with a [facility] - meal [facility] Lidocaine-P Lidocaine-P Yes Navneet not [facility] rilocaine rilocaine Call defined Jeannette kes - [facility]oria [facility] Furosemide Furosemide Yes Navneet (Prior [facility] Call Auth#:0000 [facility] - [id number]) [facility]oria [facility] Humalog Humalog Yes Navneet as [facility] KwikPen KwikPen [facility] Eliquis Eliquis Yes Navneet as [facility] Call directed [facility] Depakote Depakote Yes R.N. Univers 500 MG Oral 500 MG Oral i ty of Tablet Tablet [place] Delayed Delayed Physici Release Release ans Diclofenac Diclofenac Yes Navneet not [facility] Sodium Sodium Call defined [facility] l [facility] Tresiba Tresiba Yes Navneet as [facility] FlexTouch FlexTouch Call [facility] OLANZapine OLANZapine Yes R.N. Uni vers 10 MG Oral 10 MG Oral ity of Tablet Tablet [place] [facility] Fenofibrate Fenofibrate Yes R.N. U nivers 145 MG Oral 145 MG Oral i ty of Tablet Tablet [place] [facility] Xarelto 20 Xarelto 20 Yes R.N. Uni vers MG Oral MG Oral ity of Tablet Tablet [place] [facility] HumaLOG HumaLOG Yes R.N. Univers SOLN SOLN [facility] [place] [facility] Univers FlexTouch FlexTouch ity o f 100 UNIT/ML 100 UNIT/ML [place] Subcutaneou Subcutaneou P hysici s Solution s Solution ans Pen-injecto Pen-injecto r r Vital Signs Vital Name Observation Time Observation Value Comments Source BP Systolic 2018-05-30 138 mm[Hg] Location: [facility] :10:00 Position: [place] Physician s Sitting BP Diastolic 2018-05-30 91 mm[Hg] Location: [facility] 14:10:00 Position: [place] Physician s Sitting Height 2018-05-30 71 [in_us] [facility] 14:10:00 [place] [facility] s Weight 2018-05-30 249.375 [lb_av] University o f 14:10:00 [place] [facility] Body Mass Index 2018-05-30 34.78 kg/m2 University o f Calculated 14:10:00 [place] [facility] Temperature 2018-05-30 98 [degF] Method: Oral [facility] 14:10:00 [place] [facility] Heart Rate 2018-05-30 80 /min Quality: Normal University o f 14:10:00 [place] [facility] s Respiration Rate 2018-05-30 18 /min Quality: Normal Universi ty of 14:10:00 [place] [facility] O2 SAT 2018-05-30 97 % Source: [facility] 14:10:00 [place] Physician s BP Systolic 2018-05-01 126 mm[Hg] Location: [facility] 11:46:00 Position: [place] Physician s Sitting BP Diastolic 2018-05-01 75 mm[Hg] Location: [facility] 11:46:00 Position: [place] Physician s Sitting Height [...] s O2 SAT 2018-05-01 95 % Source: [facility] 11:46:00 [place] [facility] s Systolic (mm Hg) 2018-04-25 [facility] He rmann 18:30:00 Diastolic (mm Hg) 2018-04-25 [facility] ermann 18:30:00 Systolic (mm Hg) 2018-04-25 [facility] He rmann 18:00:00 Diastolic (mm Hg) 2018-04-25 [facility] H ermann 18:00:00 Systolic (mm Hg) 2018-04-25 [facility] He rmann 17:45:00 Diastolic (mm Hg) 2018-04-25 [facility] H ermann 17:45:00 Respitory Rate 2018-04-25 [facility] [...] n 12:17:00 Temperature Oral 2018-04-19 97.8 F [facility] Tonny rmann (F) 19:59:00 Heart Rate 2018-04-19 Lee Marshallan n 19:59:00 BMI Calculated 2018-04-19 [facility] 19:52:00 Weight 2018-04-19 [facility] Jb n 19:52:00 Height 2018-04-19 180.34 cm Lee Marshallan n 19:52:00 BP Systolic 2018-04-17 126 mm[Hg] Location: [facility] 09:58:00 Position: [place] Physician s Sitting BP Diastolic 2018-04-17 81 mm[Hg] Location: [facility] 09:58:00 Position: [place] Physician s Sitting Height 2018-04-17 71 [in_us] [facility] 09:58:00 [place] [facility] Weight 2018-04-17 248.375 [lb_av] University o f 09:58:00 [place] [facility] Body Mass Index 2018-04-17 34.64 kg/m2 University o f Calculated 09:58:00 [place] [facility] s Temperature 2018-04-17 98.3 [degF] Method: Oral [place] of 09:58:00 [place] [facility] Heart Rate 2018-04-17 83 /min Quality: Normal University o f 09:58:00 [place] [facility] Respiration Rate 2018-04-17 18 /min Quality: Normal Universi of 09:58:00 [place] [facility] s O2 SAT 2018-04-17 95 % Source: RA [facility] 09:58:00 [place] [facility] Procedures Procedure Date / Time Performing Source Performed Clinician History of Appendectomy Universi ty [facility] Physicians History of Neck surgery Universi ty [facility] Physicians History of Hysterectomy Universi ty [facility] Physicians History of Colon Surgery Univers ity [facility] Physicians History of Back Surgery [facility] Physicians History of Heller Myotomy Univer sity of Laparoscopic Approach [place] [facility] Amputation [facility] Colonoscopy [facility] Esophagogastroduodenoscopy Memor ial [place] Resection [facility] Encounters Start End Encounter Admission Attending Care Care Encounter Source Date/Time Date/Time Type Type Clinicians Facility Department ID 2021-01-04 2021-01-04 Outpatient [facility] [id number] [facility] 2020-11-26 2020-11-26 Outpatient [facility] [id number] [facility] 2020-09-14 2020-09-14 Outpatient [facility]ML[facility] [id number] [facility] 2020-08-19 2020-08-19 Outpatient [facility]ML[facility] [id number] [facility] 2020-08-12 2020-08-12 Outpatient [facility]ML[facility] [id number] [facility] 2020-08-06 2020-08-06 Outpatient [facility] [id number] [facility] 2020-05-20 2020-05-20 Outpatient [facility] [id number] [facility] 2020-05-12 2020-05-12 Outpatient [facility]MLC [facility] [id number] [facility] 2020-04-16 2020-04-16 Outpatient [facility]ML[facility] [id number] [facility] 2020-02-18 2020-02-18 [facility] [id number] [facility] 08:00[facility]00 08:00:00 [facility] 2020-02-09 2020-02-09 [facility] [id number] [facility] 11:53:00 11:53:00 t [facility] 2020-01-27 2020-01-27 [facility] [id number] [facility] 13:00:00 13:00:00 t [facility] 2020-01-21 2020-01-21 [facility] [id number] [facility] [address] 09:30:00 09:30:00 t [facility] 2020-01-14 2020-01-14 [facility] [id number] [address] 09:18:00 09:18:00 t [facility] 2020-01-08 2020-01-08 [facility] [id number] [facility] 14:15:00 14:15:00 t [facility] 2019-12-04 2019-12-04 [facility] [id number] [facility] 11:00:00 11:00:00 [facility] 2019-11-20 2019-11-20 [facility] [id number] 16:22:00 16:22:00 t [facility] 2019-10-06 2019-10-06 [facility] [id number] [address] 11:00:00 11:00:00 t [facility] 2019-09-29 2019-09-29 [facility] [id number] 13:10:00 13:10:00 t [facility] 2019-09-11 2019-09-11 [facility] [id number] 13:30:00 13:30:00 t [facility] 2019-09-01 2019-09-01 [facility] [id number] 09:16:00 09:16:00 t [facility] 2019-08-29 2019-08-29 [facility] [id number] 08:18:00 08:18:00 t [facility] 2019-08-22 2019-08-22 [facility] [id number] 09:00:00 09:00:00 t [facility] 2019-08-20 2019-08-20 [facility] [id number] 15:48:00 15:48:00 t [facility] 2019-08-18 2019-08-18 [facility] [id number] 12:00:00 12:00:00 t Bone [facility] 2019-08-06 2019-08-06 [facility] [id number] 13:30:00 13:30:00 t [facility] 2019-08-04 2019-08-04 [facility] [id number] 11:00:00 11:00:00 t [facility] 2019-07-29 2019-07-29 [facility] [id number] 16:13:00 16:13:00 t [facility]ics 2019-07-21 2019-07-21 [facility] [id number] 11:09:00 11:09:00 t [facility] 2019-07-10 2019-07-10 [facility] [id number] 13:30:00 13:30:00 t [facility] 2019-06-12 2019-06-12 [facility] [id number] 11:37:00 11:37:00 t [facility] 2019-06-09 2019-06-09 [facility] [id number] [facility] 14:59:00 14:59:00 t [facility] 2019-06-09 2019-06-09 [facility] [id number] 08:00:00 08:00:00 t [facility] Clinics 2019-05-28 2019-05-28 [facility] [id number] 09:16:00 09:16:00 t [facility] 2019-05-27 2019-05-27 [facility] [id number] 15:03:00 15:03:00 t [facility] 2019-05-22 2019-05-22 [facility] [id number] 13:30:00 13:30:00 t [facility] 2019-05-08 2019-05-08 [facility] [id number] 09:55:00 09:55:00 t [facility] 2019-05-06 2019-05-06 [facility] [id number] 14:30:00 14:30:00 t [facility] 2019-05-02 2019-05-02 [facility] [id number] 10:23:00 10:23:00 t [facility] 2019-04-28 2019-04-28 [facility] [id number] 08:46:00 08:46:00 t [facility] 2019-04-22 2019-04-22 [facility] [id number] 08:00:00 08:00:00 t [facility] 2019-04-17 2019-04-17 [facility] [id number] 13:30:00 13:30:00 t [facility] 2019-04-14 2019-04-14 [facility] [id number] 13:21:00 13:21:00 t Urgent Urgent Care L [facility] - [facility] 2019-04-14 2019-04-14 [facility] [id number] 11:15:00 11:15:00 t Urgent Urgent Care L uk - Care [facility] Outpat[facility] ent Clinics 2018-07-31 2018-07-31 Appointtessa SONIYACINDY Grider [facility] [id number] Univers 09:15:00 09:15:00 t; NABOR ARIAS it y of FARZANEH, M.D. [place] M.D. [facility] 2018-05-30 2018-05-30 Outpatient Milena [facility] [id number] 13:00:00 23:59:00 Nabor 2018-05-30 2018-05-30 AppointCINDY Montes [facility] [id number] Univers 14:00:00 14:00:00 t; NABOR ARIAS cic and Antonieta M.D. Vascular [place] MRaciel [facility] 2018-05-01 2018-05-01 Appointtessa SONIYACINDY Grider [facility] [id number] Univers 11:15:00 11:15:00 t; NABOR ARIAS cic and it y of FARZ[place]H, M.D. Vascular [place] MRaciel [facility] 2018-04-25 2018-04-25 Outpatient Milena [facility] [id number] 06:46:00 13:58:00 Nabor 2018-04-23 2018-04-23 [facility] [id number] 05:57:00 09:10:00 Nabor 2018-04-17 2018-04-17 Outpatient Milena [facility] [id number] 08:16:00 23:59:00 Nabor 2018-04-17 2018-04-17 Appointtessa ARIAS [facility] [id number] Univers 09:00:00 09:00:00 t; NABOR ARIAS cic and it y of [place], M.D. Vascular Terry MRaciel [facility] Results Test Description Test Time Test Comments Results Result Comments Source CHEM PANEL 2018-04-19 3.5 [facility] 20:18:00 CHEM PANEL 2018-04-19 20:18:00 Test Item Value Reference Range Interpretation Comme nts A/G Ratio (test code = A/G Ratio) 0.9 1 0.7-1.6 [id number] 20:18:00 Test Item Value Reference Range Interpretation Comments PTT (test code = PTT) 25.8 s 22.9-35.8 [id number] 20:18:00 Test Item Value Reference Range Interpretation Comments PT (test code = PT) 14.0 s 12.0-14.7 [id number] 20:18:00 Test Item Value Reference Range Interpretation Comments INR (test code = INR) 1.08 1 0.85-1.17 [facility] [id number] 20:18:92820Osxamsxl HermannHEMATOLOGY 2018-04-19 20:18:008.7[facility] [id number] 20:18:00 Test Item Value Reference Range Interpretation Comments MCH (test code = MCH) 29.7 pg 27.0-31.0 [facility] [id number] 20:18:0015.0[facility] 2018-04-19 20:18:0033.1[facility] [id number] 20:18:0089.8[facility] [id number] 20:18:0039.1[facility] [id number] 20:18:006.0[facility] [id number] 20:18:0012.9[facility] [facility] [id number] 20:18:004.35[facility] HshnydvJOJDKJCWGN2683-57-03 20:18:00 0.1[facility] TwnrdyxGCISRXFQSH6468-10-35 20:18:003.5[facility]annHEMATOLOGY 2018-04-19 20:18:000.4[facility] XpiftuzNIWLXVGJPA2629-43-56 20:18:000.3[facility] CihjetqPHXEFRBKXE4677-39-88 20:18:001.9[facility] ZnrwcbyGUAKMFBEVB2480-10-92 20:18:002.3[facility] ApprisyZUZYMCPHOO2482-93-53 20:18:007.4[facility] UMPQPIBJWK3178-97-76 20:18:0031.6[facility] AfqnrweJBCLKIDSZE6537-31-61 20:18:00 58.4[facility] HermannSPECIAL SUOQMRDQQ9099-84-04 20:18:0010.3[facility] URINE AND [id number] 20:18:00Negative (04/19/18 3:18 PM)[facility] URINE AND [id number] 20:18:00Negative (04/19/18 3:18 PM)[facility]INE AND [id number] 20:18:001[facility] AND ALSEJ5934-18-03 20:18:00Negative (04/19/18 3:18 PM)[facility] [id number] 20:18:005[facility] AND [id number] 20:18:00 Test Item Value Reference Range Interpretation Comments UA pH (test code = UA pH) 5.0 1 5.0-8.0 [facility] [id number] 20:18:00 Test Item Value Reference Range Interpretation Comments UA Spec Grav (test code = UA Spec 1.025 1 Grav) [facility] [id number] 20:18:00Slight *ABN*(04/19/18 3:18 PM) [facility] [id number] 20:18:00Yellow *NA*(04/19/18 3:18 PM) [facility] [id number] 20:18:00Negative *NA*(04/19/18 3:18 PM) [facility] [id number] 20:18:00Negative (04/19/18 3:18 PM) [facility]annCHEM [id number] 20:18:0056[facility]annCHEM PANEL 2018-04-19 20:18:0021[facility] HermannCHEM QRXUZ7600-01-49 20:18:003.2[facility]annCHEM PALFH3953-71-54 20:18:0025[facility]annCHEM [id number] 20:18:0065[facility]annCHEM BJSSQ3166-95-01 20:18:000.2[facility]annCHEM [id number] 20:18:009.0[facility]annCHEM [id number] 20:18:006.7 [facility]annCHEM [id number] 20:18:69323Dsisbiaa HermannCHEM PANEL 2018-04-19 20:18:0018[facility] HermannCHEM [id number] 20:18:001.13[facility]annCHEM [id number] 20:18:56141Yugrbvfr HermannCHEM [id number] 20:18:89195Dohigdkv HermannCHEM [id number] 20:18:0027[facility] HermannCHEM [id number] 20:18:004.5[facility]annCHEM [id number] 20:18:0015.5 [facility]annCHEM [id number] 20:18:00 Test Item Value Reference Range Interpretation Comments B/C Ratio (test code = B/C Ratio) 16 1 6-25 [facility] [id number] 20:00:00Product available (04/19/18 3:00 PM)[facility]
[2021-01-31 02:52] LABS: Absolute Lymphocytes (CBC) 2.8 K/uL (0.7-4.9); Basophils % 0.7 % (0-1.3); Hematocrit 40.7 % (36.0-45.0); MPV 9.1 fL (7.6-11.3); Protime INR 1.05; RBC Red Blood Cell Count 4.61 M/uL (3.86-4.86)
[2021-01-31 03:07] LABS: ALT/SGPT 29 U/L (12-78); AST/SGOT 16 U/L (15-37); Albumin 3.3 g/dL (3.4-5.0); Alkaline Phosphatase 87 U/L (45-117); BUN Blood Urea Nitrogen 19 mg/dL (7-18); Bicarbonate 34 mmol/L (21-32); Bilirubin Direct < 0.1 mg/dL (0-0.2); Bilirubin Total 0.2 mg/dL (0.2-1.0); Glucose Level 104 mg/dL (74-106); NT PRO-BNP 178 pg/mL (<125); Potassium 3.4 mmol/L (3.5-5.1); Protein, Total 6.6 g/dL (6.4-8.2); Sodium Level 143 mmol/L (136-145); Troponin (Emerg Dept Use Only) < 0.02 ng/mL (0.0-0.045)
[2021-01-31 03:56] LABS: Thyroid Stimulating Hormone 5.41 uIU/mL (0.360-3.740)
[2021-01-31 04:50] LABS: Urine Blood Negative (Negative); Urine Glucose Negative (Negative); Urine Protein 2+ (Negative); Urine Specific Gravity 1.025 (1.005-1.030); Urine pH 5.5 (5.0-7.0)
--- NOTE | 2021-01-31 05:20 | EDPHYS ---
Physician Documentation [facility] Name: Renetta Ramsay Age: 55 yrs Sex: Female : 1965 Arrival Date: 01/31/2021 Time: 00:59 Bed 16 Private MD: ED Physician Xavier Henriquez HPI: 01/31 02:00 This 55 yrs old Female presents to ER via Ambulatory with complaints of mh7 Palpitations. 02:52 The patient presents with a history of heart racing. Context: The symptoms occur at mh7 rest. Onset: The symptoms/episode began/occurred last night. Duration: The patient or guardian reports a single episode, that is now resolved. Modifying factors: The symptoms are aggravated by nothing. The symptoms are alleviated by nothing. Associated signs and symptoms: Pertinent positives: chest pain, Pertinent negatives: anxiety, cough, fever, lightheadedness, nausea, SOB, syncope, near-syncope, unusual stressors, vertigo, vomiting. Severity of symptoms: At their worst the symptoms were moderate last night, in the emergency department the symptoms have resolved and did so earlier today. 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 - Social history:: Smoking status: Patient reports the use of cigarette tobacco products, denies chronic smoking, but will smoke occasionally. ROS: 02:52 Constitutional: Negative for fever, chills, and weight loss, Eyes: Negative for injury, mh7 pain, redness, and discharge, Neck: Negative for injury, pain, and swelling, Respiratory: Negative for shortness of breath, cough, wheezing, and pleuritic chest pain, Abdomen/GI: Negative for abdominal pain, nausea, vomiting, diarrhea, and constipation, Back: Negative for injury and pain, : Negative for injury, bleeding, discharge, and swelling, MS/Extremity: Negative for injury and deformity, Skin: Negative for injury, rash, and discoloration, Neuro: Negative for headache, weakness, numbness, tingling, and seizure, Psych: Negative for depression, anxiety, suicide ideation, homicidal ideation, and hallucinations, Allergy/Immunology: Negative for hives, rash, and allergies, Endocrine: Negative for neck swelling, polydipsia, polyuria, polyphagia, and marked weight changes, Hematologic/Lymphatic: Negative for swollen nodes, abnormal bleeding, and unusual bruising. Exam: 02:52 Constitutional: This is a well developed, well nourished patient who is awake, alert, mh7 and in no acute distress. Head/Face: Normocephalic, atraumatic. Eyes: Pupils equal round and reactive to light, extra-ocular motions intact. Lids and lashes normal. Conjunctiva and sclera are non-icteric and not injected. Cornea within normal limits. Periorbital areas with no swelling, redness, or edema. Neck: Trachea midline, no thyromegaly or masses palpated, and no cervical lymphadenopathy. Supple, full range of motion without nuchal rigidity, or vertebral point tenderness. No Meningismus. Chest/axilla: Normal chest wall appearance and motion. Nontender with no deformity. No lesions are appreciated. Cardiovascular: Regular rate and rhythm with a normal S1 and S2. No gallops, murmurs, or rubs. Normal PMI, no JVD. No pulse deficits. Respiratory: Lungs have equal breath sounds bilaterally, clear to auscultation and percussion. No rales, rhonchi or wheezes noted. No increased work of breathing, no retractions or nasal flaring. Abdomen/GI: Soft, non-tender, with normal bowel sounds. No distension or tympany. No guarding or rebound. No evidence of tenderness throughout. Back: No spinal tenderness. No costovertebral tenderness. Full range of motion. Skin: Warm, dry with normal turgor. Normal color with no rashes, no lesions, and no evidence of cellulitis. MS/ Extremity: Pulses equal, no cyanosis. Neurovascular intact. Full, normal range of motion. Neuro: Awake and alert, GCS 15, oriented to person, place, time, and situation. Cranial nerves II-XII grossly intact. Motor strength 5/5 in all extremities. Sensory grossly intact. Cerebellar exam normal. Normal gait. Psych: Awake, alert, with orientation to person, place and time. Behavior, mood, and affect are within normal limits. Vital Signs: 01:06 BP 136 / 62; Pulse 97; Resp 16; Temp 97.5; Pulse Ox 95% on R/A; Weight 122.47 kg; em Height 5 ft. 11 in. (180.34 cm); Pain 8/10; 02:30 BP 127 / 69; Pulse 76; Resp 18; Pulse Ox 96% on R/A; jb4 04:00 BP 104 / 61; Pulse 75; Resp 16; Pulse Ox 97% on R/A; jb4 05:30 BP 105 / 54; Pulse 61; Resp 16; Pulse Ox 97% on R/A; jb4 01:06 Body Mass Index 37.66 (122.47 kg, 180.34 cm) em MDM: 05:18 Differential diagnosis: arrythmia, dehydration, stress disorder, palpitations. Data [facility] reviewed: vital signs, nurses notes, lab test result(s), cardiac enzymes, CBC, electrolytes, urinalysis, EKG, radiologic studies, plain films. Data interpreted: Pulse oximetry: on room air is 97 %. Interpretation: normal. Counseling: I had a detailed discussion with the patient and/or guardian regarding: the historical points, exam findings, and any diagnostic results supporting the discharge/admit diagnosis, lab results, radiology results, the need for outpatient follow up, to return to the emergency department if symptoms worsen or persist or if there are any questions or concerns that arise at home. Response to treatment: the patient's symptoms have resolved after treatment, the patient's blood pressure is in an acceptable range, mental status has returned to baseline, the patient no longer shows bradycardia, the patient is not short of breath, the patient is not tachycardic, the patient's pain is gone, the patient's temperature has normalized, the patient is now symptom free, patient is well hydrated. 05:20 Patient medically screened. mh7 01/31 01:33 Order name: Basic Metabolic Panel 01/31 01:33 Order name: CBC with Diff; Complete Time: 02:58 01/31 01:33 Order name: LFT's; Complete Time: 03:37 01/31 01:33 Order name: Magnesium; Complete Time: 03:37 01/31 01:33 Order name: NT PRO-BNP; Complete Time: 03:37 01/31 01:33 Order name: PT-INR; Complete Time: 03:37 01/31 01:33 Order name: Troponin (emerg Dept Use Only); Complete Time: 03:37 01/31 01:34 Order name: Basic Metabolic Panel; Complete Time: 03:37 [facility] 01/31 02:58 Order name: TSH [facility] 01/31 02:59 Order name: Thyroid Stimulating Hormone; Complete Time: 04:17 ED[facility] 01/31 03:39 Order name: D-Dimer; Complete Time: 04:17 [facility] 01/31 03:56 Order name: T4 Free; Complete Time: 04:17 [facility] 01/31 04:17 Order name: Troponin (emerg Dept Use Only) [facility] 01/31 04:18 Order name: Troponin (Emerg Dept Use Only); Complete Time: 05:06 [facility] 01/31 01:33 Order name: XRAY Chest (1 view) 01/31 01:33 Order name: EKG; Complete Time: 01:34 01/31 01:33 Order name: Cardiac monitoring; Complete Time: 01:51 01/31 01:33 Order name: EKG - Nurse/Tech; Complete Time: 01:41 01/31 01:33 Order name: IV Saline Lock; Complete Time: 02:35 01/31 01:33 Order name: Labs collected and sent; Complete Time: 02:35 01/31 01:33 Order name: O2 Per Protocol; Complete Time: 01:51 01/31 01:33 Order name: O2 Sat Monitoring; Complete Time: 01:51 01/31 03:00 Order name: Urine Dipstick-Ancillary (obtain specimen); Complete Time: 04:56 [facility] 01/31 04:49 Order name: Urine Dipstick-Ancillary; Complete Time: 05:06 [facility] 01/31 04:51 Order name: Urine Microscopic Only ds4 Administered Medications: No medications were administered Disposition Summary: 01/31/21 05:20 Discharge Ordered Location[facility] Problem[facility] Symptoms: have improved [facility] Condition: Stable [facility] Diagnosis - Palpitations [facility] - UTI/ Urinary tract infection, site not specified [facility]up[facility] - With: Private Physician - When: 1 - 2 days - Reason: Wound Recheck, If symptoms return, Worsening of condition, Recheck today's complaints, Continuance of care, Re-evaluation by your physician Discharge Instructions: - Discharge Summary Sheet [facility] - Urinary Tract Infection, Adult, Znvz-ay-Qvmq [facility] - Palpitations, Tucq-cm-Prhz [facility] Forms: - Medication Reconciliation Form [facility] - Thank You Letter [facility] - Antibiotic Education [facility] - Prescription Opioid Use [facility] Prescriptions: - Macrobid 100 mg Oral Capsule - take 1 capsule by ORAL route every 12 hours for 7 days; 14 capsule; Refills: 0, 7 Product Selection Permitted Signatures: Dispatcher [employer] Anders Anton, MARK RN Xavier Damon MD MD [facility]
--- NOTE | 2021-01-31 05:20 | ER ---
Nurse's Notes [facility] Name: Renetta Ramsay Age: 55 yrs Sex: Female : 1965 Arrival Date: 01/31/2021 Time: 00:59 Bed 16 Private MD: Diagnosis: Palpitations;UTI/ Urinary tract infection, site not specified Presentation: 01/31 01:06 Chief complaint: Patient states: left sided chest pain with palpitations that started em 30 minutes ago, denies N/V. Coronavirus screen: Client denies travel out of the [place] in the last 14 days. Ebola Screen: Patient negative for fever greater than or equal to 101.5 degrees Fahrenheit, and additional compatible Ebola Virus Disease symptoms Patient denies exposure to infectious person. Patient denies travel to an Ebola-affected area in the 21 days before illness onset. No symptoms or risks identified at this time. Initial Sepsis Screen: Does the patient meet any 2 criteria? HR > 90 bpm. No. Patient's initial sepsis screen is negative. Does the patient have a suspected source of infection? No. Patient's initial sepsis screen is negative. Risk Assessment: Do you want to hurt yourself or someone else? Patient reports no desire to harm self or others. Onset of symptoms was January 31, 2021. 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 - Social history:: Smoking status: Patient reports the use of cigarette tobacco products, denies chronic smoking, but will smoke occasionally. Screenin:35 Abuse screen: Denies threats or abuse. Nutritional screening: No deficits noted. jb4 Tuberculosis screening: No symptoms or risk factors identified. Fall Risk None identified. Assessment: 01:35 General: Appears in no apparent distress. comfortable, Behavior is calm, cooperative. jb4 Pain: Denies pain. Neuro: Level of Consciousness is awake, alert, obeys commands, Oriented to person, place, time, situation. Cardiovascular: Patient's skin is warm and dry. Respiratory: Airway is patent Respiratory effort is even, unlabored, Respiratory pattern is regular, symmetrical. GI: No signs and/or symptoms were reported involving the gastrointestinal system. : No signs and/or symptoms were reported regarding the genitourinary system. EENT: No signs and/or symptoms were reported regarding the EENT system. Derm: Skin is intact, Skin is pink, warm \T\ dry. Musculoskeletal: Circulation, motion, and sensation intact. Range of motion: intact in all extremities. 02:36 Reassessment: Patient appears in no apparent distress at this time. Patient and/or jb4 family updated on plan of care and expected duration. Pain level reassessed. Patient is alert, oriented x 3, equal unlabored respirations, skin warm/dry/pink. 04:00 Reassessment: Patient appears in no apparent distress at this time. Patient and/or jb4 family updated on plan of care and expected duration. Pain level reassessed. Patient is alert, oriented x 3, equal unlabored respirations, skin warm/dry/pink. 05:30 Reassessment: Patient appears in no apparent distress at this time. Patient and/or jb4 family updated on plan of care and expected duration. Pain level reassessed. Patient is alert, oriented x 3, equal unlabored respirations, skin warm/dry/pink. Vital Signs: 01:06 BP 136 / 62; Pulse 97; Resp 16; Temp 97.5; Pulse Ox 95% on R/A; Weight 122.47 kg; em Height 5 ft. 11 in. (180.34 cm); Pain 8/10; 02:30 BP 127 / 69; Pulse 76; Resp 18; Pulse Ox 96% on R/A; jb4 04:00 BP 104 / 61; Pulse 75; Resp 16; Pulse Ox 97% on R/A; jb4 05:30 BP 105 / 54; Pulse 61; Resp 16; Pulse Ox 97% on R/A; jb4 01:06 Body Mass Index 37.66 (122.47 kg, 180.34 cm) em ED Course: 00:59 Patient arrived in ED. am4 01:09 Triage completed. em 01:09 Arm band placed on. em 01:35 Patient has correct armband on for positive identification. Allergy band placed. Bed in jb4 low position. Call light in reach. Side rails up X 1. Pulse ox on. NIBP on. 01:37 Xavier Henriquez MD is Attending Physician. [facility] 01:41 EKG done, by ED staff, reviewed by Xavier Henriquez MD. em 01:51 Alec Villar, RN is Primary Nurse. jb4 02:18 XRAY Chest (1 view) In Process Unspecified. EDMS 02:30 Initial lab(s) drawn, by me, sent to lab. Inserted saline lock: 18 gauge in right jb4 antecubital area, using aseptic technique. Blood collected. 05:30 No provider procedures requiring assistance completed. IV discontinued, intact, jb4 bleeding controlled, No redness/swelling at site. Pressure dressing applied. Administered Medications: No medications were administered Outcome: 05:20 Discharge ordered by . [facility] 05:30 Discharged to home ambulatory, with family. jb4 05:30 Condition: stable 05:30 Discharge instructions given to patient, Instructed on discharge instructions, follow up and referral plans. no drinking with medication, medication usage, Demonstrated understanding of instructions, follow-up care, medications, Prescriptions given X 1. 05:31 Patient left the ED. jb4 Signatures: Dispatcher [employer] Anders Anton RN RN Alec Villar, RN MARK [facility] Xavier Henriquez MD MD [facility] Rosanna Reyes [facility]
[2021-01-31 05:46] VITALS: TEMP 97.5
[2021-01-31 05:56] LABS: Urine Bacteria 20-50 /HPF (<20); Urine Mucus 2+ /HPF (NONE SEEN); Urine Yeast FEW (NONE SEEN)
[2021-01-31 06:03] VITALS: O2SAT 97
[2021-01-31 06:14] VITALS: BP 105/54
--- NOTE | 2021-01-31 08:55 | RAD REPORT ---
EXAM DESCRIPTION: RAD - Chest Single View - 01/31/2021 2:18 am CLINICAL HISTORY: CHEST PAIN Chest pain. COMPARISON: Chest Single View dated 10/11/2020; Chest Pa And Lat (2 Views) dated 09/14/2020; Chest Sin gle View dated 02/22/2020; Chest Single View dated 08/20/2019 FINDINGS: Portable technique limits examination quality. Rounded lesion in the left upper lobe laterally with subtle internal cavitation is again seen. The jun ngs are otherwise clear. The heart is upper limit normal in size. Cervical hardware noted.
--- NOTE | 2021-01-31 16:06 | EKG ---
Test Date: 2021-01-31 Test Time: 01:39:16 Outbound Sales Executive: MITCHEL MEASUREMENT RESULTS: Intervals: Rate: 80 LA: 156 QRSD: 96 QT: 364 QTc: 419 [place]: P: 47 LA: 156 QRS: 15 T: 66 INTERPRETIVE STATEMENTS: Sinus rhythm with occasional premature ventricular complexes Low voltage QRS Borderline ECG Compared to ECG 10/12/2020 03:22:09 Sinus tachycardia no longer present T-wave abnormality no longer present Electronically Signed On 01-31-21 16:03:59 CDT by Geremias Cuellar
== END 2021-01-31 05:31 | disposition home or self-care (01) ==
LOC: ER 00:54
DX: N39.0 Urinary tract infection, site not specified (principal); I10 Essential (primary) hypertension; F17.210 Nicotine dependence, cigarettes, uncomplicated; Z88.0 Allergy status to penicillin; Z88.1 Allergy status to other antibiotic agents; Z88.8 Allergy status to other drugs, medicaments and biological substances
CPT/HCPCS: 36415; 71045; 80048; 80076; 81003; 81015; 83735; 83880; 84439; 84443; 84484; 85025; 85379; 85610; 87086; 87088; 93005; 99284

== ENCOUNTER 2021-07-12 09:56 | Day surgery (SDC) | payer OTHER ==
[2021-07-07 09:14] LABS: Absolute Lymphocytes (CBC) 2.3 K/uL (0.7-4.9); Basophils % 0.4 % (0-1.3); Hematocrit 39.5 % (36.0-45.0); Lymphocytes % 27.2 % (15.3-44.8); MPV 9.6 fL (7.6-11.3)
[2021-07-07 09:19] LABS: Protime INR 1.12
--- NOTE | 2021-07-07 09:20 | RAD REPORT ---
EXAM DESCRIPTION: Rex Allison And Pascale (2 Views)07/07/2021 9:05 am CLINICAL HISTORY: Preop for cardiac catheterization. Hypertension COMPARISON: 2019 FINDINGS: A 25 millimeter cavitary nodule left upper lobe unchanged. The lungs appear clear of acute infiltrate. The heart is mildly enlarged IMPRESSION: Stable 25 millimeter cavitary left upper lobe nodule
[2021-07-07 09:26] LABS: Potassium 3.7 mmol/L (3.5-5.1)
[2021-07-12] MEDS ORDERED: NA CHLORIDE 0.9% 500 ML ONE (10:14)
[2021-07-12] MEDS ORDERED: HEPA 1000U/500MLS 2,000 UNIT/1,000 ML BAG IV ONE (10:46)
[2021-07-12] MEDS ORDERED: FENTANYL CITR 100 MCG/2 ML ONE (12:33)
[2021-07-12] MEDS ORDERED: MIDAZOLAM HCL 2 MG/2 ML INJ ONE (12:33)
[2021-07-12] MEDS ORDERED: ATROPINE SULF 1 MG/10 ML SYR IV ONE (12:34)
[2021-07-12] MEDS ORDERED: HEPARIN 5000 UNIT/ML 1 ML VIAL ONE (12:34)
[2021-07-12] MEDS ORDERED: VERAPAMIL HCL 10 MG/4 ML VIAL IV ONE (12:34)
[2021-07-12] MEDS ORDERED: NITROGLYCERIN 100 MCG/ML SYR (for cath lab use only) IV ONE ×2 (13:00→13:02)
[2021-07-12] MEDS ORDERED: NITROGLYCERIN/D5W 25 MG/250 ML BTL IV ONE (13:01)
--- NOTE | 2021-07-12 13:54 | OP ---
Date of Procedure: 07/12/2021 Surgeon: KIMMY EDWARDS Procedure Performed: 1.Selective coronary angiogram. 2.Left heart catheterization. Indication: Chest pain with abnormal stress test. Access: Right radial artery 6-Luxembourger closed with TR band. Anesthesia: Total sedation time was 50 minutes. Description Of Procedure: After risks, benefits, alternatives were explained, the patient agreed to procedure and signed informed consent. The patient was brought into the cardiac catheterization labor atory, prepped and draped in usual sterile fashion. I accessed the right radial artery using Phillyi c micropuncture kit and placed a 6-Luxembourger slender sheath and took a 5-Luxembourger [place] 4.0 catheter into the aortic root and engaged left main, right coronary artery, took standard views. Catheter was push ed over the wire into the LV. Took LVEDP. Pullback did not record gradient. The catheter was remov ed. Sheath was removed, placed TR band. Good hemostasis. Findings: 1.Left main is normal. 2.LAD normal. Normal diagonal branches. 3.Left circumflex is normal and non dominant. 4.RCA; large dominant and normal. 5.Elevated LVEDP at 28 mmHg. Conclusion: 1.Normal coronary arteries. 2.Elevated LVEDP, likely due to diastolic heart failure. Plan: Adjusting diuretics as an outpatient. SR/MODL Voice ID: [id number] Report ID: [id number]
[2021-07-12 14:16] VITALS: TEMP 97.3
[2021-07-12 16:30] VITALS: BP 120/92; O2SAT 98
== END 2021-07-12 16:15 | disposition home or self-care (01) ==
LOC: CCL 09:56
PROVIDERS: ATTEND Internal Medicine
DX: R94.39 Abnormal result of other cardiovascular function study (principal); R07.9 Chest pain, unspecified; I82.509 Chronic embolism and thrombosis of unspecified deep veins of unspecified lower extremity; E78.5 Hyperlipidemia, unspecified; F17.210 Nicotine dependence, cigarettes, uncomplicated; Z79.01 Long term (current) use of anticoagulants; Z79.4 Long term (current) use of insulin; Z88.0 Allergy status to penicillin; Z88.8 Allergy status to other drugs, medicaments and biological substances; Z20.822 Contact with and (suspected) exposure to COVID-19
CPT/HCPCS: 93005; 85025; 80048; 36415; 85610; 82947; 85730; 71046; 93458; U0003; C1893; J1644 ×2; J2250; J3010; J7040

== ENCOUNTER 2021-07-13 14:26 | Inpatient (IN) | payer OTHER ==
--- OUTSIDE RECORDS SUMMARY | 2021-07-13 14:29 | XMS REPORT | Continuity of Care Document ---
:1965 Author Organization [facility] t Address [address] [place] [address] Care Team Providers Name Role Phone BANKI Attending Clinician Unavailable Problems Condition Condition Condition Status Onset Resolution Last Treating Co mments Source Name Details Category Date Date Treatment Clinician Date History of History of Problem Resolve Univers [...] following following [id number] ity of surgery surgery [place] [facility] Allergies, Adverse Reactions, Alerts Allergy Allergy Status Severity Reaction(s) Onset Inactive Treating Comm ents Source Name Type Date Date Clinician penicill Adverse Active Info Not [facility] Reaction Available [facility] Amoxicil Adverse Active Info Not [facility] crissy Reaction Available [facility] Penicill drug Active Univers ins allergy [facility] [place] [facility] Family History Family Member Diagnosis Comments Start Date Stop Date Source Mother Family history of [facility] [place] malignant neoplasm Physic ians of breast Social History Smoking Status Start Date Stop Date Source Smoker. current status unknown [facility] Medications Ordered Filled Start Stop Current Ordering Indication Dosage Frequency Signature Comments Components Source Medication Medication Date Date Medication? Clinician (SIG) Name Name Jazmine Lucero Yes [facility] Tramadol Tramadol 2020- No [facility] [address] [facility] HCl HCl 2-07 07-10 Call [facility] needed [facility]00 [facility] Olanzapine Olanzapine Yes Nav[place] [address] [facility]06 Call [facility] 00 [facility] ent Clinics MetFORMIN MetFORMIN Yes R.N. Unive rs HCl - 500 HCl - 500 ity o f MG Oral MG Oral [place] Tablet Tablet Physici ans ALPRAZolam ALPRAZolam Yes R.N. Uni vers 1 MG Oral 1 MG Oral ity o f Tablet Tablet [place] [facility] OLANZapine OLANZapine Yes R.N. Uni vers 5 MG Oral 5 MG Oral ity o f Tablet Tablet [place] [facility] Venlafaxine Venlafaxine Yes R.N. U nivers HCl ER 150 HCl ER 150 ity of MG Oral MG Oral [place] Tablet Tablet Physici Extended Extended ans Release 24 Release 24 Hour Hour Lyrica 150 Lyrica 150 Yes R.N. Uni vers MG Oral MG Oral ity of Capsule Capsule [place] [facility] Pantoprazol Pantoprazol Yes R.N. U nivers e Sodium 40 e Sodium 40 i ty of MG Oral MG Oral [place] Tablet Tablet Physici Delayed Delayed ans Release Release Acetic Acid Acetic Acid Yes Navne[facility] not [facility] Call defined [facility] Outpat[facility] Clinics Venlafaxine Venlafaxine Yes Navne[facility] not [facility] HCl ER HCl ER Call defined [facility] Yes Navneet [address] [facility] Omeprazole Omeprazole Yes Navneet (Prior [facility] St Call Auth#:0000 [facility] - [id number]) [facility] Clinics atorvastati atorvastati [...] Yes [facility] (Prior [facility] Call Auth#:0000 [facility] - [id number]) [facility] Clinics Humalog Humalog [...] [facility] - [facility] Yes R.N. Univers 500 MG Oral 500 MG Oral i ty of Tablet Tablet [place] Delayed Delayed Physici Release Release ans OLANZapine OLANZapine Yes R.N. Uni vers 10 MG Oral 10 MG Oral ity of Tablet Tablet [place] [facility] Fenofibrate Fenofibrate Yes R.N. U nivers 145 MG Oral 145 MG Oral i ty of Tablet Tablet [place] [facility] Xarelto 20 Xarelto 20 Yes R.N. Uni vers MG Oral MG Oral [facility]y [facility] HumaLOG HumaLOG Yes R.N. Univers SOLN SOLN ity of [place] [facility] Tresiba Tresiba Yes R.N. Univers FlexTouch FlexTouch ity o f 100 UNIT/ML 100 UNIT/ML [place] Subcutaneou Subcutaneou P hysici s Solution s Solution ans Pen-injecto Pen-injecto r r Vital Signs Vital Name Observation Time Observation Value Comments Source BP Systolic 2018-05-30 138 mm[Hg] Location: [facility] ::00 Position: [place] [facility] Sitting BP Diastolic 2018-05-30 91 mm[Hg] Location: [facility] :: Position: [place] [facility]ician [facility] Sitting Height 2018-05-30 71 [in_us] [facility] 14:10:00 [place] [facility] s Weight 2018-05-30 249.375 [lb_av] [place] [facility] f 14:10:00 [place] [facility] Body Mass Index 2018-05-30 34.78 kg/m2 [place] [facility] Calculated 14:10:00 [place] [facility] s Temperature 2018-05-30 98 [degF] Method: Oral [facility] 14:10:00 [place] [facility] Heart Rate 2018-05-30 80 /min Quality: Normal University o f 14:10:00 [place] [facility] s Respiration Rate 2018-05-30 18 /min Quality: Normal [facility] of 14:10:00 [place] [facility] s O2 SAT 2018-05-30 97 % Source: [facility] [place] [facility] 14:10:00 [place] [facility] BP Systolic 2018-05-01 126 mm[Hg] Location: [facility] 11:46:00 Position: [place] Physician s Sitting BP Diastolic 2018-05-01 75 mm[Hg] Location: [facility] 11:46:00 Position: [place] [facility]ician [facility] Sitting Height 2018-05-01 71 [in_us] [place] of 11:46:00 [place] [facility] Weight 2018-05-01 [...] s O2 SAT 2018-05-01 95 % Source: [facility] [place] [facility] 11:46:00 [place] [facility] Heart Rate 2018-04-17 83 /min Quality: Normal University o f 09:58:00 [place] [facility] Respiration Rate 2018-04-17 18 /min Quality: Normal Universi ty of 09:58:00 [place] [facility] s O2 SAT 2018-04-17 95 % Source: [facility] [place] [facility] 09:58:00 [place] [facility] BP Systolic 2018-04-17 126 mm[Hg] Location: [facility] 09:58:00 Position: [place] [facility]ician s Sitting BP Diastolic 2018-04-17 81 mm[Hg] Location: [facility] 09:58:00 Position: [place] [facility]ician s Sitting Height 2018-04-17 71 [in_us] [facility] 09:58:00 [place] [facility] Weight 2018-04-17 248.375 [lb_av] University o 09:58:00 [place] [facility] Body Mass Index 2018-04-17 34.64 kg/m2 University o Calculated 09:58:00 [place] [facility] Temperature 2018-04-17 98.3 [degF] Method: Oral [facility] of 09:58:00 [place] [facility] Procedures Procedure Date / Time Performing Clinician Source Performed History of Appendectomy [facility] Physicians History of Neck surgery [facility]icians History of Hysterectomy [facility]icians History of Colon [facility] Physicians History of Back Surgery [facility] History of [facility] Myotomy Laparoscopic Physicians Approach Encounters Start End Encounter Admission Attending Care Care Encounter Source Date/Time Date/Time Type Type Clinicians Facility Department ID 2021-05-30 2021-05-30 ambulatory [facility] [id number] [facility] 2021-05-24 2021-05-24 ambulatory [facility] [id number] [facility] 2021-05-06 2021-05-06 Outpatient [facility] [id number] [facility] 2021-04-07 2021-04-07 Outpatient [facility] [id number] [facility] 2021-03-31 2021-03-31 Outpatient [facility] [id number] [facility] 2021-02-25 2021-02-25 Outpatient [facility] [id number] [facility] 2021-01-27 2021-01-27 Outpatient [facility] [id number] [facility] 2021-01-04 2021-01-04 Outpatient [facility] [id number] [facility] 2020-11-26 2020-11-26 Outpatient [facility] [id number] [facility] 2020-09-14 2020-09-14 Outpatient [facility] [id number] [facility] 2020-08-19 2020-08-19 Outpatient [facility] [id number] [facility] 2020-08-12 2020-08-12 Outpatient [facility] [id number] [facility] 2020-08-06 2020-08-06 Outpatient [facility] [id number] [facility] 2020-05-20 2020-05-20 Outpatient [facility] [id number] [facility] 2020-05-12 2020-05-12 Outpatient [facility] [id number] [facility] 2020-04-16 2020-04-16 Outpatient [facility] [id number] [facility] 2020-02-18 2020-02-18 [facility] [id number] [facility] 08:[facility]00 08:00:00 [facility] 2020-02-09 2020-02-09 [facility] [id number] [address] 11:53:00 11:53:00 t [facility] 2020-01-27 2020-01-27 [facility] [id number] 13:00:00 13:00:00 t [facility] 2020-01-21 2020-01-21 [facility] [id number] [facility] 09:30:00 09:30:00 t [facility] 2020-01-14 2020-01-14 [facility] [id number] 09:18:00 09:18:00 t [facility] 2020-01-08 2020-01-08 [facility] [id number] [facility] 14:15:00 14:15:00 t [facility] 2019-12-04 2019-12-04 [facility] [id number] [facility] [address] 11:00:00 11:00:00 [facility] 2019-11-20 2019-11-20 [facility] [id number] [facility] 16:22:00 16:22:00 t [facility] 2019-10-06 2019-10-06 [facility] [id number] [address] 11:00:00 11:00:00 t [facility] 2019-09-29 2019-09-29 [facility] [id number] [facility] [address] 13:10:00 13:10:00 t [facility] 2019-09-11 2019-09-11 [facility] [id number] [address] 13:30:00 13:30:00 t [facility] 2019-09-01 2019-09-01 [facility] [id number] 09:16:00 09:16:00 t [facility] 2019-08-29 2019-08-29 [facility] [id number] [address] 08:18:00 08:18:00 t [facility] 2019-08-22 2019-08-22 [facility] [id number] 09:00:00 09:00:00 t [facility] 2019-08-20 2019-08-20 [facility] [id number] [facility] 15:48:00 15:48:00 t [facility] 2019-08-18 2019-08-18 [facility] [id number] 12:00:00 12:00:00 t [facility] Clin[facility] 2019-08-06 2019-08-06 [facility] [id number] 13:30:00 13:30:00 t [facility] 2019-08-04 2019-08-04 [facility] [id number] [facility] 11:00:00 11:00:00 t [facility] 2019-07-29 2019-07-29 [facility] [id number] 16:13:00 16:13:00 t [facility] 2019-07-21 2019-07-21 [facility] [id number] 11:09:00 11:09:00 t [facility] 2019-07-10 2019-07-10 [facility] [id number] 13:30:00 13:30:00 t [facility] 2019-06-12 2019-06-12 [facility] [id number] [address] 11:37:00 11:37:00 t [facility] Clinics 2019-06-09 2019-06-09 [facility] [id number] 14:59:00 14:59:00 t [facility] 2019-06-09 2019-06-09 [facility] [id number] 08:00:00 08:00:00 t [facility] 2019-05-28 2019-05-28 [facility] [id number] 09:16:00 09:16:00 t [facility] Clin[facility] 2019-05-27 2019-05-27 [facility] [id number] [address] 15:03:00 15:03:00 t [facility] 2019-05-22 2019-05-22 [facility] [id number] 13:30:00 13:30:00 t [facility] 2019-05-08 2019-05-08 [facility] [id number] 09:55:00 09:55:00 t [facility] 2019-05-06 2019-05-06 [facility] [id number] 14:30:00 14:30:00 t [facility] 2019-05-02 2019-05-02 [facility] [id number] 10:23:00 10:23:00 t [facility] 2019-04-28 2019-04-28 [facility] [id number] [address] 08:46:00 08:46:00 t [facility] Clin[facility] 2019-04-22 2019-04-22 [facility] [id number] 08:00:00 08:00:00 t [facility] 2019-04-17 2019-04-17 [facility] [id number] 13:30:00 13:30:00 t [facility] 2019-04-14 2019-04-14 [facility] [id number] 13:21:00 13:21:00 t Urgent Ur[facility] 2019-04-14 2019-04-14 [facility] [id number] 11:15:00 11:15:00 t Urgent Ur[facility] 2018-07-31 2018-07-31 AppointCINDY Montes [facility] [id number] Univers 09:15:00 09:15:00 t; NABOR ARIAS it y Jory Banks M.D. [facility] 2018-05-30 2018-05-30 AppointCINDY Montes [facility] [id number] Univers 14:00:00 14:00:00 t; NABOR ARIAS cic and lenore y karuna TOMLIN M.D. [facility] [place] [facility].Anatoly [facility] 2018-05-01 2018-05-01 AppointCINDY Montes [facility] [id number] Univers 11:15:00 11:15:00 t; NABOR ARIAS cic and Antonieta M.D. Vascular [place] MRaciel [facility] 2018-04-17 2018-04-17 CINDY Mark [facility] [id number] Univers 09:00:00 09:00:00 t; NABOR ARIAS cic and lenore y karuna TOMLIN M.D. [facility] [place] M.DMyesha [facility] Results This patient has no known results.
[2021-07-13] MEDS ORDERED: ONDANSETRON 4 MG/2 ML VIAL ONE (15:00)
[2021-07-13] MEDS ORDERED: Ringers Lactate 1,000 ML IV ONE ×2 (15:00→16:56)
[2021-07-13 15:24] LABS: Absolute Lymphocytes (CBC) 0.8 K/uL (0.7-4.9); Basophils % 0.3 % (0-1.3); Hematocrit 37.4 % (36.0-45.0); Lymphocytes % 12.8 % (15.3-44.8); MPV 8.7 fL (7.6-11.3); RBC Red Blood Cell Count 4.18 M/uL (3.86-4.86)
[2021-07-13 16:24] LABS: Urine Blood Negative (Negative); Urine Glucose Trace (Negative); Urine Protein Negative (Negative)
[2021-07-13 16:42] LABS: ALT/SGPT 42 U/L (12-78); AST/SGOT 27 U/L (15-37); Albumin 2.7 g/dL (3.4-5.0); Alkaline Phosphatase 112 U/L (45-117); BUN Blood Urea Nitrogen 18 mg/dL (7-18); Bicarbonate 25 mmol/L (21-32); Bilirubin Direct 0.1 mg/dL (0-0.2); Bilirubin Total 0.5 mg/dL (0.2-1.0); Lipase 4284 U/L (73-393); Potassium 3.8 mmol/L (3.5-5.1); Protein, Total 6.1 g/dL (6.4-8.2); Sodium Level 138 mmol/L (136-145)
[2021-07-13 16:44] LABS: Glucose Level 463 mg/dL (74-106)
[2021-07-13] MEDS ORDERED: INSULIN -REGULAR HUMAN 50 UNIT/0.5 ML ML ONE ×2 (16:56→22:03)
--- NOTE | 2021-07-13 17:56 | ER ---
Nurse's Notes [facility] Name: Renetta Ramsay Age: 55 yrs Sex: Female : 1965 Arrival Date: 07/13/2021 Time: 14:41 Bed 5 Private MD: Diagnosis: Acute pancreatitis without necrosis or infection, unspecified;Diabetes mellitus due to underlying condition with hyperglycemia Presentation: 07/13 14:43 Chief complaint: EMS states: toned out for headache and dizziness. Family stated that ld1 pt had a heart cath on 07/12/2021 and she has not taken her diabetes medication. EMS reports BG of "High." Upon arrival pt was N/V, lethargic and c/o nausea. Coronavirus screen: At this time, the client does not indicate any symptoms associated with coronavirus-19. Ebola Screen: No symptoms or risks identified at this time. Initial Sepsis Screen: Does the patient meet any 2 criteria? No. Patient's initial sepsis screen is negative. Does the patient have a suspected source of infection? No. Patient's initial sepsis screen is negative. Risk Assessment: Do you want to hurt yourself or someone else? Patient reports no desire to harm self or others. Onset of symptoms was July 13, 2021. 14:43 Method Of Arrival: EMS: [facility] ld1 14:43 Acuity: OLY 3 ld1 Triage Assessment: 14:47 General: Appears in no apparent distress. uncomfortable, Behavior is calm, cooperative, ld1 appropriate for age. Pain: Denies pain. EENT: No signs and/or symptoms were reported regarding the EENT system. Neuro: Level of Consciousness is awake, alert, obeys commands, Oriented to person, place, time, situation, Reports dizziness, headache weakness. Cardiovascular: Capillary refill < 3 seconds Patient's skin is warm and dry. Respiratory: Airway is patent Respiratory effort is even, unlabored, Respiratory pattern is regular, symmetrical. GI: Abdomen is round non-distended, Reports nausea, vomiting. : No signs and/or symptoms were reported regarding the genitourinary system. Derm: No signs and/or symptoms reported regarding the dermatologic system. Musculoskeletal: No signs and/or symptoms reported regarding the musculoskeletal system. 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 LMP N/A - Hysterectomy ld1 Historical: - Allergies: 14:47 Amoxicillin; ld1 14:47 aripiprazole; ld1 14:47 PENICILLINS; ld1 14:47 pentazocine lactate; ld1 14:47 Talwin; ld1 - Home Meds: 14:47 atorvastatin 40 mg Oral tab 1 tab nightly [Active]; Depakote 500 mg Oral TbEC 3 tabs ld1 nightly [Active]; Eliquis 5 mg Oral tab 1 tab 2 times per day [Active]; furosemide 20 mg Oral tab 1 tab once daily [Active]; Humalog 100 unit/mL Sub-Q crtg 15 unit after meals and before bedtime [Active]; Lyrica 150 mg Oral 3 times per day [Active]; metformin 500 mg Oral cpER 1 tab 2 times per day [Active]; olanzapine 5 mg Oral tab once daily [Active]; omeprazole 20 mg Oral cpDR 1 cap once daily [Active]; Tresiba FlexTouch U-100 100 unit/mL (3 mL) subcutaneous inpn 90 unit daily [Active]; Trulicity 0.75 mg/0.5 mL subcutaneous pnij 0.5 mL once wkly [Active]; venlafaxine 75 mg Oral cp24 once daily [Active]; - PMHx: 14:47 ADD/ADHD; Bipolar disorder; Chronic pain; Depression; Diabetes - NIDDM; DVT; Esophageal ld1 stricture; High Cholesterol; Hypertension; osteomyelitis; Pancreatitis; - PSHx: 14:47 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 - Social history:: Smoking status: Patient denies any tobacco usage or history of. Patient/guardian denies using alcohol. Screenin:23 Abuse screen: Denies threats or abuse. Nutritional screening: No deficits noted. mk Tuberculosis screening: No symptoms or risk factors identified. Fall Risk No fall in past 12 months (0 pts). No secondary diagnosis (0 pts). IV access (20 points). Ambulatory Aid- None/Bed Rest/Nurse Assist (0 pts). Gait- Weak (10 pts.). Mental Status- Oriented to own ability (0 pts). Assessment: 17:02 Reassessment: See triage assessment. ld1 17:36 Reassessment: Patient appears in no apparent distress at this time. ld1 19:30 General: Appears in no apparent distress. Behavior is calm, cooperative. Pain: Denies mk pain. Neuro: Level of Consciousness is awake, alert, obeys commands, Oriented to person, place, time, situation, Container Maker are equal bilaterally Full function Gait is unsteady, Speech is normal, Facial symmetry appears normal, Pupils are PERRLA, Reports dizziness. Cardiovascular: Heart tones S1 S2 present Capillary refill < 3 seconds Patient's skin is warm and dry. Pulses are 2+ in right radial artery, right dorsalis pedis artery, left radial artery and left dorsalis pedis artery Rhythm is sinus rhythm. Respiratory: Airway is patent Trachea midline Respiratory effort is even, unlabored, Respiratory pattern is regular, symmetrical, Breath sounds are clear bilaterally. GI: Abdomen is non-distended, Bowel sounds present X 4 quads. : No signs and/or symptoms were reported regarding the genitourinary system. Derm: Skin is intact, is healthy with good turgor, Skin is dry, Skin temperature is warm. Musculoskeletal: No signs and/or symptoms reported regarding the musculoskeletal system. Injury Description: Puncture sustained to right arm was sustained 1 day ago. to R wrist s/p heart cath, no hematoma, no s/s infection. 20:30 Reassessment: No changes from previously documented assessment. Patient and/or family mk updated on plan of care and expected duration. Pain level reassessed. Patient is alert, oriented x 3, equal unlabored respirations, skin warm/dry/pink. 21:30 Reassessment: No changes from previously documented assessment. Patient and/or family mk updated on plan of care and expected duration. Pain level reassessed. Patient is alert, oriented x 3, equal unlabored respirations, skin warm/dry/pink. 22:31 Reassessment: No changes from previously documented assessment. Patient and/or family mk updated on plan of care and expected duration. Pain level reassessed. Patient is alert, oriented x 3, equal unlabored respirations, skin warm/dry/pink. 23:23 General:. mk 07/15 18:44 Reassessment: Report called to Sade Javier RN. Patient going to ICU bed 7. al4 Vital Signs: 07/13 14:57 BP 129 / 69; Pulse 59; Resp 12; Temp 97.9(O); Pulse Ox 95% on R/A; Weight 108.86 kg; ld1 Height 5 ft. 7 in. (170.18 cm); Pain 0/10; 15:41 BP 137 / 77; Pulse 57; Resp 15; Pulse Ox 93% on R/A; ld1 17:02 BP 136 / 72; Pulse 57; Resp 18; Pulse Ox 98% on R/A; ld1 17:36 BP 151 / 88; Pulse 59; Resp 18; Pulse Ox 95% on R/A; ld1 19:30 BP 124 / 55; Pulse 70; Resp 18; Pulse Ox 98% on R/A; mk 20:30 BP 111 / 53; Pulse 61; Resp 18; Pulse Ox 97% on R/A; mk 21:30 BP 130 / 50; Pulse 62; Resp 18; Pulse Ox 97% ; mk 22:30 BP 121 / 50; Pulse 60; Resp 18; Pulse Ox 97% on R/A; mk 14:57 Body Mass Index 37.59 (108.86 kg, 170.18 cm) ld1 Vitals: 20:30 Cardiac Rhythm Assessment Regular Sinus rhythm. mk 21:30 Cardiac Rhythm Assessment Regular Sinus rhythm. mk 22:30 Cardiac Rhythm Assessment Regular Sinus rhythm. mk [place] Coma Score: 19:30 Eye Response: spontaneous(4). Verbal Response: oriented(5). Motor Response: obeys mk commands(6). Total: 15. 20:30 Eye Response: spontaneous(4). Verbal Response: oriented(5). Motor Response: obeys mk commands(6). Total: 15. 21:30 Eye Response: spontaneous(4). Verbal Response: oriented(5). Motor Response: obeys mk commands(6). Total: 15. 22:30 Eye Response: spontaneous(4). Verbal Response: oriented(5). Motor Response: obeys mk commands(6). Total: 15. ED Course: 14:41 Patient arrived in ED. ds1 14:47 Triage completed. ld1 14:49 Arm band placed on right wrist. ld1 14:54 Guillaume Espinoza PA is PHCP. jr8 14:54 Lenny Lopez MD is Attending Physician. jr8 14:59 Daphne Danielle RN is Primary Nurse. ld1 17:55 Prezas, Lewis, DO is Hospitalizing Provider. jr8 18:01 Manjeet Maciel MD is Hospitalizing Provider. la1 18:37 SARS-COV-2 RT PCR (Document "Date of Onset" if Symptomatic) Sent. ld1 18:43 CT Abd/Pelvis - IV Contrast Only In Process Unspecified. EDMS 18:48 SARS-COV-2 RT PCR (Document "Date of Onset" if Symptomatic) Sent. mh5 18:49 Patient has correct armband on for positive identification. Placed in gown. Bed in low mh5 position. Call light in reach. Side rails up X 1. Warm blanket given. personnel monitor on. Pulse ox on. NIBP on. 18:49 COVID swab sent to lab. [facility] 19:07 Primary Nurse role handed off by Daphne Danielle RN 19:07 Nena Carvajal, MARK is Primary Nurse. 19:30 IV is intact, IV to RFA by previous RN intact. 21:01 this RN keeping pt in ER per hospitalist orders until repeat chemistry returns d/t mk pending results and possible need for insulin drip. 22:10 Notified the Hospitalist of RN received orders for the DKA protocol insulin drip, RN jona notifed hospitalist Selvin of K+ value of 4.3 and asked if they would like to start replacing, they said they were ok to send up to the ICU. 22:10 Inserted saline lock: 20 gauge in right antecubital area, using aseptic technique. 23:24 No provider procedures requiring assistance completed. mk 23:25 Patient admitted, IV remains in place. 07/14 01:19 Primary Nurse role handed off by Nena Carvajal RN [facility] 01:19 Abiola Pepper is Primary Nurse. [facility] 07/15 08:20 Primary Nurse role handed off by Abiola Pepper 19:06 Rodriguez Neville, MARK is Primary Nurse. as6 Administered Medications: 07/13 15:10 Drug: Ringers - Lactated Ringers Solution 1000 ml Route: IV; Rate: bolus; Site: right ld1 forearm; 18:37 Follow up: Response: No adverse reaction; IV Status: Completed infusion; IV Intake: ld1 1000ml 15:10 Drug: Zofran (Ondansetron) 4 mg Route: IVP; Site: right forearm; ld1 18:37 Follow up: Response: No adverse reaction ld1 16:59 Drug: Insulin Regular Human 10 units {Co-Signature: madyson (Nayeli Kim RN).} Route: IVP; ld1 Site: right forearm; 18:37 Follow up: Response: No adverse reaction ld1 16:59 Drug: Ringers - Lactated Ringers Solution 1000 ml Route: IV; Rate: bolus; Site: right ld1 antecubital; 18:37 Follow up: Response: No adverse reaction; IV Status: Completed infusion; IV Intake: ld1 1000ml 20:23 Drug: Meclizine 25 mg Route: PO; mk 21:35 Follow up: Response: No adverse reaction; Marked relief of symptoms mk 22:42 Drug: Insulin Drip - (Insulin Regular Human 100 units, NS 0.9% 100 ml) {Co-Signature: jona robledo (Daria Stuart RN).} Route: IV; Rate: 10 units/hr; Site: right antecubital; Intake: 18:37 IV: 1000ml; Total: 1000ml. ld1 18:37 IV: 1000ml; Total: 2000ml. ld1 Outcome: 17:55 Decision to Hospitalize by Provider. jr8 23:24 Admitted to ICU Other ICU hold in ER report to Abiola tenorio 23:24 critical 23:24 Instructed on the need for admit. 07/15 19:07 Patient left the ED. as6 Signatures: Dispatcher [employer] [facility] ZohuRissa gar dsGuillaume Weber PA PA jr8 Selvin Edwards, SURGICAL CONSULTANT-C SURGICAL CONSULTANT-Cla1 Ni Reyes 5 Sade White Lauren, RN RN tony1 Abiola Pepper tw5 Rodriguez Neville RN RN as6 Parveen Bryson Madeline, RN RN mk Jessica Rees RN jh5 Daria Stuart RN, lp1 Corrections: (The following items were deleted from the chart) 07/13 20:33 19:30 BP 111 / 53; Pulse 61bpm; Resp 18bpm; Pulse Ox 97% RA; mk
--- NOTE | 2021-07-13 17:56 | EDPHYS ---
Physician Documentation [facility] Name: Renetta Ramsay Age: 55 yrs Sex: Female : 1965 Arrival Date: 07/13/2021 Time: 14:41 Bed 5 Private MD: ED Physician Lenny Lopez HPI: 07/13 16:43 This 55 yrs old Female presents to ER via EMS with complaints of Vomiting. jr8 16:43 The patient presents to the emergency department with nausea, vomiting. Onset: The jr8 symptoms/episode began/occurred acutely, today. Possible causes: unknown. Associated signs and symptoms: Pertinent positives: dizziness. Severity of symptoms: At their worst the symptoms were moderate in the emergency department the symptoms are unchanged. It is unknown whether or not the patient has had similar symptoms in the past. The patient has been recently seen by a physician:. This is a 55-year-old female patient that presented to the emergency room with acute onset of dizziness and vomiting that started today. Patient was seen by cardiology yesterday to have cardiac clearance for a upper endoscopy. Patient stated that she had a heart cath completed yesterday without incident and was sent home. That everything went well. EMS was called out and picked up patient. Was noted that patient had a glucose reading of HI on their monitor.. 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 MENDING: 14:57 LMP N/A - Hysterectomy ld1 Historical: - Allergies: 14:47 Amoxicillin; ld1 14:47 aripiprazole; ld1 14:47 PENICILLINS; ld1 14:47 pentazocine lactate; ld1 14:47 Talwin; ld1 - Home Meds: 14:47 atorvastatin 40 mg Oral tab 1 tab nightly [Active]; Depakote 500 mg Oral TbEC 3 tabs ld1 nightly [Active]; Eliquis 5 mg Oral tab 1 tab 2 times per day [Active]; furosemide 20 mg Oral tab 1 tab once daily [Active]; Humalog 100 unit/mL Sub-Q crtg 15 unit after meals and before bedtime [Active]; Lyrica 150 mg Oral 3 times per day [Active]; metformin 500 mg Oral cpER 1 tab 2 times per day [Active]; olanzapine 5 mg Oral tab once daily [Active]; omeprazole 20 mg Oral cpDR 1 cap once daily [Active]; Tresiba FlexTouch U-100 100 unit/mL (3 mL) subcutaneous inpn 90 unit daily [Active]; Trulicity 0.75 mg/0.5 mL subcutaneous pnij 0.5 mL once wkly [Active]; venlafaxine 75 mg Oral cp24 once daily [Active]; - PMHx: 14:47 ADD/ADHD; Bipolar disorder; Chronic pain; Depression; Diabetes - NIDDM; DVT; Esophageal ld1 stricture; High Cholesterol; Hypertension; osteomyelitis; Pancreatitis; - PSHx: 14:47 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 - Social history:: Smoking status: Patient denies any tobacco usage or history of. Patient/guardian denies using alcohol. ROS: 16:43 Eyes: Negative for injury, pain, redness, and discharge, ENT: Negative for injury, jr8 pain, and discharge, Neck: Negative for injury, pain, and swelling, Cardiovascular: Negative for chest pain, palpitations, and edema, Respiratory: Negative for shortness of breath, cough, wheezing, and pleuritic chest pain, Back: Negative for injury and pain, MS/Extremity: Negative for injury and deformity, Skin: Negative for injury, rash, and discoloration. 16:43 Abdomen/GI: Positive for nausea, vomiting, Negative for abdominal pain, diarrhea. 16:43 Neuro: Positive for dizziness. Exam: 16:45 Constitutional: This is a well developed, well nourished patient who is awake, alert, jr8 and in no acute distress. Cardiovascular: Regular rate and rhythm with a normal S1 and S2. No gallops, murmurs, or rubs. Normal PMI, no JVD. No pulse deficits. Respiratory: Lungs have equal breath sounds bilaterally, clear to auscultation and percussion. No rales, rhonchi or wheezes noted. No increased work of breathing, no retractions or nasal flaring. Abdomen/GI: Soft, non-tender, with normal bowel sounds. No distension or tympany. No guarding or rebound. No evidence of tenderness throughout. Skin: Warm, dry with normal turgor. Normal color with no rashes, no lesions, and no evidence of cellulitis. MS/ Extremity: Pulses equal, no cyanosis. Neurovascular intact. Full, normal range of motion. Neuro: Awake and alert, GCS 15, oriented to person, place, time, and situation. Cranial nerves II-XII grossly intact. Motor strength 5/5 in all extremities. Sensory grossly intact. Cerebellar exam normal. Vital Signs: 14:57 BP 129 / 69; Pulse 59; Resp 12; Temp 97.9(O); Pulse Ox 95% on R/A; Weight 108.86 kg; ld1 Height 5 ft. 7 in. (170.18 cm); Pain 0/10; 15:41 BP 137 / 77; Pulse 57; Resp 15; Pulse Ox 93% on R/A; ld1 17:02 BP 136 / 72; Pulse 57; Resp 18; Pulse Ox 98% on R/A; ld1 17:36 BP 151 / 88; Pulse 59; Resp 18; Pulse Ox 95% on R/A; ld1 19:30 BP 124 / 55; Pulse 70; Resp 18; Pulse Ox 98% on R/A; mk 20:30 BP 111 / 53; Pulse 61; Resp 18; Pulse Ox 97% on R/A; mk 21:30 BP 130 / 50; Pulse 62; Resp 18; Pulse Ox 97% ; mk 22:30 BP 121 / 50; Pulse 60; Resp 18; Pulse Ox 97% on R/A; mk 14:57 Body Mass Index 37.59 (108.86 kg, 170.18 cm) ld1 Torrey Coma Score: 19:30 Eye Response: spontaneous(4). Verbal Response: oriented(5). Motor Response: obeys mk commands(6). Total: 15. 20:30 Eye Response: spontaneous(4). Verbal Response: oriented(5). Motor Response: obeys mk commands(6). Total: 15. 21:30 Eye Response: spontaneous(4). Verbal Response: oriented(5). Motor Response: obeys mk commands(6). Total: 15. 22:30 Eye Response: spontaneous(4). Verbal Response: oriented(5). Motor Response: obeys mk commands(6). Total: 15. MDM: 14:54 Patient medically screened. jr8 17:54 Data reviewed: vital signs, nurses notes, lab test result(s), radiologic studies, CT jr8 scan. Data interpreted: Pulse oximetry: on room air is 95 %. Interpretation: normal. Counseling: I had a detailed discussion with the patient and/or guardian regarding: the historical points, exam findings, and any diagnostic results supporting the discharge/admit diagnosis, lab results, radiology results, the need for further work-up and treatment in the hospital. 07/13 14:55 Order name: Basic Metabolic Panel; Complete Time: 16:46 jr8 07/13 14:55 Order name: CBC with Diff; Complete Time: 16:33 jr8 07/13 14:55 Order name: Hepatic Function; Complete Time: 16:46 jr8 07/13 14:55 Order name: Lipase; Complete Time: 16:46 8 07/13 14:55 Order name: Ketone, Serum; Complete Time: 16:46 8 07/13 15:17 Order name: Glucose, Ancillary Testing; Complete Time: 15:27 EDMS 07/13 16:24 Order name: Urine Dipstick-Ancillary; Complete Time: 16:33 EDMS 07/13 17:11 Order name: Lipid Profile; Complete Time: 06:05 [facility] 07/13 18:07 Order name: SARS-COV-2 RT PCR (Document "Date of Onset" if Symptomatic); Complete Time: iw 20:48 07/13 18:42 Order name: Basic Metabolic Panel; Complete Time: 06:05 EDMS 07/13 21:59 Order name: LDL, Direct; Complete Time: 06:05 EDMS 07/13 22:27 Order name: Glucose, Ancillary Testing; Complete Time: 06:05 EDMS 07/14 00:01 Order name: Glucose, Ancillary Testing; Complete Time: 06:05 EDMS 07/14 01:01 Order name: Glucose, Ancillary Testing; Complete Time: 06:05 EDMS 07/14 02:11 Order name: Glucose, Ancillary Testing; Complete Time: 06:05 EDMS 07/14 03:24 Order name: Glucose, Ancillary Testing; Complete Time: 06:05 EDMS 07/14 04:14 Order name: Glucose, Ancillary Testing; Complete Time: 06:05 EDMS 07/14 05:15 Order name: Glucose, Ancillary Testing; Complete Time: 06:05 EDMS 07/14 05:38 Order name: Acetone Level; Complete Time: 06:19 EDMS 07/14 05:40 Order name: CBC with Automated Diff; Complete Time: 06:05 EDMS 07/14 06:06 Order name: Comprehensive Metabolic Panel; Complete Time: 06:19 EDMS 07/14 06:06 Order name: Triglycerides Level; Complete Time: 06:19 EDMS 07/14 06:06 Order name: T4 Free; Complete Time: 06:19 EDMS 07/14 06:06 Order name: Lipase; Complete Time: 06:19 EDMS 07/14 06:06 Order name: Thyroid Stimulating Hormone; Complete Time: 06:19 EDMS 07/14 06:08 Order name: Glucose, Ancillary Testing; Complete Time: 06:19 EDMS 07/14 06:19 Order name: LDL, Direct; Complete Time: 06:19 EDMS 07/14 07:07 Order name: Glucose, Ancillary Testing; Complete Time: 07:30 EDMS 07/14 07:15 Order name: Hemoglobin A1c; Complete Time: 07:30 EDMS 07/14 07:34 Order name: Glucose, Ancillary Testing; Complete Time: 07:46 EDMS 07/14 07:35 Order name: Glucose, Ancillary Testing; Complete Time: 07:46 EDMS 07/14 09:15 Order name: Glucose, Ancillary Testing; Complete Time: 09:23 EDMS 07/14 10:35 Order name: Glucose, Ancillary Testing; Complete Time: 10:41 EDMS 07/14 11:47 Order name: Glucose, Ancillary Testing; Complete Time: 11:59 EDMS 07/14 12:46 Order name: Glucose, Ancillary Testing; Complete Time: 12:57 EDMS 07/14 13:27 Order name: Glucose, Ancillary Testing; Complete Time: 13:35 EDMS 07/14 14:39 Order name: Glucose, Ancillary Testing; Complete Time: 15:04 EDMS 07/14 15:18 Order name: Glucose, Ancillary Testing; Complete Time: 15:31 EDMS 07/14 16:26 Order name: Glucose, Ancillary Testing; Complete Time: 16:42 EDMS 07/14 17:36 Order name: Triglycerides Level; Complete Time: 18:12 EDMS 07/14 17:47 Order name: LDL, Direct; Complete Time: 18:12 EDMS 07/14 17:52 Order name: Glucose, Ancillary Testing; Complete Time: 18:12 EDMS 07/14 19:03 Order name: Glucose, Ancillary Testing; Complete Time: 06:49 EDMS 07/14 19:49 Order name: Glucose, Ancillary Testing; Complete Time: 06:49 EDMS 07/14 20:47 Order name: Glucose, Ancillary Testing; Complete Time: 06:49 EDMS 07/14 21:46 Order name: Glucose, Ancillary Testing; Complete Time: 06:49 EDMS 07/14 22:42 Order name: Glucose, Ancillary Testing; Complete Time: 06:49 EDMS 07/15 00:26 Order name: Glucose, Ancillary Testing; Complete Time: 06:49 EDMS 07/15 02:27 Order name: Glucose, Ancillary Testing; Complete Time: 06:49 EDMS 07/15 04:20 Order name: Glucose, Ancillary Testing; Complete Time: 06:49 EDMS 07/15 06:00 Order name: Glucose, Ancillary Testing; Complete Time: 06:49 EDMS 07/15 06:22 Order name: Acetone Level; Complete Time: 07:07 EDMS 07/15 06:24 Order name: CBC with Automated Diff; Complete Time: 06:49 EDMS 07/15 06:43 Order name: Comprehensive Metabolic Panel; Complete Time: 07:07 EDMS 07/15 06:43 Order name: Triglycerides Level; Complete Time: 07:07 EDMS 07/15 06:43 Order name: Lipase; Complete Time: 07:07 EDMS 07/15 06:56 Order name: LDL, Direct; Complete Time: 07:07 EDMS 07/15 07:06 Order name: Glucose, Ancillary Testing; Complete Time: 07:07 EDMS 07/15 08:11 Order name: Glucose, Ancillary Testing; Complete Time: 09:12 EDMS 07/15 09:06 Order name: Glucose, Ancillary Testing; Complete Time: 09:12 EDMS 07/15 10:15 Order name: Glucose, Ancillary Testing; Complete Time: 10:17 EDMS 07/13 14:55 Order name: IV Saline Lock; Complete Time: 14:59 8 07/13 14:55 Order name: Labs collected and sent; Complete Time: 15:07 8 07/13 14:55 Order name: Urine Dipstick-Ancillary (obtain specimen); Complete Time: 16:25 8 07/13 14:55 Order name: Glucose Level; Complete Time: 16:25 [facility] 07/13 17:11 Order name: CT Abd/Pelvis - IV Contrast Only; Complete Time: 20:48 [facility] 12/22 18:06 Order name: Misc. Order: Repeat BMP, acetone level after 2L LR infusion complete la1 please. notify hospitalist of results.; Complete Time: 18:37 07/15 11:12 Order name: Glucose, Ancillary Testing; Complete Time: 11:13 EDMS 07/15 12:19 Order name: Glucose, Ancillary Testing; Complete Time: 12:49 EDMS 07/15 13:11 Order name: Glucose, Ancillary Testing; Complete Time: 13:13 EDMS 07/15 14:17 Order name: Glucose, Ancillary Testing; Complete Time: 14:45 EDMS 07/15 15:06 Order name: Glucose, Ancillary Testing; Complete Time: 15:09 EDMS 07/15 16:07 Order name: Glucose, Ancillary Testing; Complete Time: 16:14 EDMS 07/15 17:05 Order name: Glucose, Ancillary Testing; Complete Time: 17:07 EDMS 07/15 17:31 Order name: Triglycerides Level; Complete Time: 17:49 EDMS 07/15 17:41 Order name: LDL, Direct; Complete Time: 17:49 EDMS 07/15 18:22 Order name: Glucose, Ancillary Testing EDMS Administered Medications: 15:10 Drug: Ringers - Lactated Ringers Solution 1000 ml Route: IV; Rate: bolus; Site: right ld1 forearm; 18:37 Follow up: Response: No adverse reaction; IV Status: Completed infusion; IV Intake: ld1 1000ml 15:10 Drug: Zofran (Ondansetron) 4 mg Route: IVP; Site: right forearm; ld1 18:37 Follow up: Response: No adverse reaction ld1 16:59 Drug: Insulin Regular Human 10 units {Co-Signature: jh5 (Nayeli Kim RN).} Route: IVP; ld1 Site: right forearm; 18:37 Follow up: Response: No adverse reaction ld1 16:59 Drug: Ringers - Lactated Ringers Solution 1000 ml Route: IV; Rate: bolus; Site: right ld1 antecubital; 18:37 Follow up: Response: No adverse reaction; IV Status: Completed infusion; IV Intake: ld1 1000ml 20:23 Drug: Meclizine 25 mg Route: PO; mk 21:35 Follow up: Response: No adverse reaction; Marked relief of symptoms mk 22:42 Drug: Insulin Drip - (Insulin Regular Human 100 units, NS 0.9% 100 ml) {Co-Signature: jona patel1 (Daria Stuart RN).} Route: IV; Rate: 10 units/hr; Site: right antecubital; Disposition Summary: 07/13/21 17:55 Hospitalization Ordered Hospitalization Status: Inpatient Admission jr8 Condition: Stable jr8 Problem: new jr8 Symptoms: have improved jr8 Bed/Room Type: Standard jr8 Provider: Manjeet Maciel(07/13/21 18:01) pina Location: Intensive Care Unit(07/15/21 18:47) Room Assignment: 7-(07/15/21 18:47) Diagnosis - Acute pancreatitis without necrosis or infection, unspecified jr8 - Diabetes mellitus due to underlying condition with hyperglycemia jr8 Forms: - Medication Reconciliation Form jr8 - SBAR form jr8 Addendum: 07/19/2021 13:12 Co-signature as Attending Physician, Lenny Lopez MD I agree with the assessment and k dr plan of care. Signatures: Dispatcher [facility] Areli Mercedes RN RN mw Rittger, Kevin, MD MD [facility] Jasmine Moses RN RN Guillaume Espinoza PA PA jr8 Selvin Edwards, DAY CARE ATTENDANT-C DAY CARE ATTENDANT-Cla1 Di Wolf RN RN eb1 Daphne Danielle, MARK RN [email or web address] Nena Carvajal RN RN mk Jessica Rees RN jh5 Daria Stuart RN lp1 Corrections: (The following items were deleted from the chart) 07/13 16:46 16:43 This is a 55-year-old female patient that presented to the emergency room with jr8 acute onset of dizziness and vomiting that started today. Patient was seen by cardiology yesterday to have cardiac clearance for a upper endoscopy. Patient stated that she had a heart cath completed yesterday without incident and was sent home. That everything went well.. jr8 18:01 17:55 Lewis Decker jr8 la1 18:41 18:37 BASIC METABOLIC PANEL+C.LAB.BRZ ordered. EDNM EDMS 19:42 17:55 jr8 eb1 21:51 17:55 Telemetry/MedSurg (Inpatient) jr8 la1 21:51 19:42 208 eb1 la1 21:52 21:51 la1 eb1 22:17 21:51 Intensive Care Unit la1 eb1 22:17 21:52 1- eb1 eb1 07/15 18:47 07/13 22:17 [facility] ER HOLD eb1 mw 07/15 18:47 07/13 22:17 ERHOLD- eb1 mw
--- NOTE | 2021-07-13 19:07 | RAD REPORT ---
EXAM DESCRIPTION: CTAbdomen Pelvis W Contrast - 07/13/2021 6:44 pm CLINICAL HISTORY: markedly elevated lipase ;Abd pain COMPARISON: Abdomen Pelvis W Contrast dated 06/03/2018; Abdomen Pelvis W Contrast dated 6; CT ABD PELVIS W CONTRAST dated 10/06/2015; CT ABD PELVIS W CONTRAST dated 06/03/2015 TECHNIQUE: CT of the abdomen and pelvis was performed. All CT scans are performed using dose optimization technique as appropriate and may include automated exposure control or mA/KV adjustment according to patient size. FINDINGS: Lower chest: Circumferentially thickened distal esophagus. Liver: Hepatomegaly with steatosis. Biliary: No biliary ductal dilatation. Stomach: No significant focal abnormality. Duodenum: No significant focal abnormality. Pancreas: No significant abnormality. Spleen: No significant abnormality. Adrenal: No suspicious lesions. Kidney/ureter: No hydronephrosis. No renal calculi. Retroperitoneum: No retroperitoneal adenopathy. Vascular: No aneurysm. Bowel: No significant focal abnormality. Partial colectomy. Diverticulosis. Peritoneum: No ascites or free air. Bladder: Grossly unremarkable. Reproductive: No adnexal masses. Hysterectomy. Bones: No acute fracture. Other: n/a IMPRESSION: No acute intra-abdominal or pelvic finding. No CT findings to suggest acute pancreatitis despite elevated lipase.
--- NOTE | 2021-07-13 19:31 | P.HP ---
Certification for Inpatient Patient admitted to: Inpatient With expected LOS: >2 Midnights Patient will require the following post-hospital care: None Practitioner: I am a practitioner with admitting privileges, knowledge of patient current condition, hospital course, and medical plan of care. Services: Services provided to patient in accordance with Admission requirements found in Title 42 Section 412.3 of the Code of Federal Regulations Patient History Date of Service: 07/13/21 Primary Care Provider: Dr. Crooks Reason for admission: Acute pancreatitis, hyperglycemia History of Present Illness: 55-year-old female with history of DVT/PE on chronic anticoagulation therapy, pancreatitis, diabetes mellitus type 2insulin-dependent, hypertension, hyperlipidemia presents emergency department for headache, generalized weakness and high blood sugar. Patient reports that she had heart cath recently and for that reason was told to hold her medications, patient has not been taking her insulin at home including Tresiba 100 units daily and Humalog 60 units 3 times daily. Patient blood sugar elevated upon arrival over 400. Labs are significant for anion gap 12, GFR 61 glucose 463 lipase 4284 white blood cell count in normal limits serum acetone large CT abdomen pelvis demonstrates no acute intra-abdominal or pelvic findings no CT findings to suggest acute pancreatitis despite elevated lipase levels. Patient noted to have circumferentially thickened distal esophagus, patient does have known esophageal stricture. Patient with mild amount of pain at this time, ED provider wishes to admit for further evaluation and management of elevated lipase, hyperglycemia. Will return, triglycerides significantly elevated, will admit to ICU for insulin drip for hypertriglyceridemia induced pancreatitis Allergies meperidine [From Demerol] Allergy (Mild, Verified 07/07/21 08:25) Unknown pentazocine lactate [From Talwin] Allergy (Mild, Verified 07/07/21 08:25) Hallucinations amoxicillin Allergy (Verified 07/07/21 08:25) Nausea/Vomiting aripiprazole [From Abilify] Allergy (Verified 07/07/21 08:25) Dizzy Penicillins Allergy (Verified 07/07/21 08:25) Nausea/Vomiting Home Medications: RX: Apixaban [Eliquis] 5 mg PO BID 02/19/20 RX: Divalproex Sodium [Depakote ER] 1,500 mg PO BEDTIME 02/19/20 RX: Furosemide [Lasix] 20 mg PO DAILY 02/19/20 RX: Insulin Lispro [Humalog Kwikpen U-100] 30 units SQ ACHS 02/19/20 RX: OLANZapine [Zyprexa*] 15 mg PO BEDTIME 02/19/20 RX: Omeprazole 1 cap PO DAILY 02/19/20 RX: Pregabalin [Lyrica] 150 mg PO TID 02/19/20 RX: Venlafaxine HCl [Venlafaxine HCl ER] 150 mg PO DAILY 02/19/20 RX: Atorvastatin Calcium [Lipitor] 40 mg PO BEDTIME tab 02/23/20 RX: Alprazolam [Xanax] 0.5 mg PO TID 10/11/20 RX: Fluticasone/Salmeterol [Advair 250-50 Diskus] 1 dose IH DAILY 10/11/20 RX: Insulin Degludec [Tresiba Flextouch U-200] 10/11/20 RX: glipiZIDE [Glipizide] 5 mg PO BID 10/11/20 Umeclidinium Brm/Vilanterol Tr [Anoro Ellipta 62.5-25 Mcg INH] 1 dose IH DAILY 10/11/20 Insulin Degludec [Tresiba Flextouch U-200] 60 units SQ DAILY #2 10/13/20 Pregabalin [Lyrica] 50 mg PO TID #90 cap 10/13/20 RX: Albuterol Neb [Proventil 0.083% Neb Soln] 2.5 mg NEB [id number] PRN #60 amp 10/13/20 RX: Ipratropium Neb [Atrovent*] 0.5 mg NEB [id number] #60 amp 10/13/20 RX: predniSONE [Prednisone*] 20 mg PO BID #18 tab 10/13/20 - Past Medical/Surgical History Diabetic: Yes -: Diabetes mellitus type 2insulin-dependent -: Hyperlipidemia -: Bipolar disorder, 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 She has 1 son. She does not work. She currently lives with her mother. - Family History Father -: Heart disease Mother -: Heart disease, Hypertension, Diabetes, Cancer Notes: breast cancer - Social History Smoking Status: Current every day smoker Counseled patient to stop smoking for: less than 10 minutes Smoking therapy provided: No (Patient declined) Alcohol use: No CD- Drugs: No Caffeine use: Yes Place of Residence: Home Review of Systems General: Weakness, Malaise Gastrointestinal: Nausea, Abdominal Pain Neurological: Other (Headache) Physical Examination - Physical Exam General: Alert, In no apparent distress, Oriented x3, Obese HEENT: Atraumatic, PERRLA, Mucous membr. moist/pink, EOMI, Sclerae nonicteric Neck: Supple, 2+ carotid pulse no bruit, No LAD, Without JVD or thyroid abnormality Respiratory: Clear to auscultation bilaterally, Normal air movement Cardiovascular: Regular rate/rhythm, Normal S1 S2 Gastrointestinal: Normal bowel sounds, Tenderness (Mild generalized abdominal tenderness) Musculoskeletal: No tenderness Integumentary: No rashes Neurological: Normal speech, Normal strength at 5/5 x4 extr, Normal tone, Normal affect - Studies Laboratory Data (last 24 hrs) 07/13/21 18:36: Sodium Cancelled, Potassium Cancelled, BUN Cancelled, Creatinine Cancelled, Glucose Cancelled 07/13/21 15:06: WBC 6.50 D, Hgb 12.8, Hct 37.4, Plt Count 172 07/13/21 15:06: Sodium 138, Potassium 3.8, BUN 18, Creatinine 0.96, Glucose 463 H*, Total Bilirubin 0.5, AST 27, ALT 42, Alkaline Phosphatase 112, Lipase 4284 H Assessment and Plan - Plan Assessment: Diabetes mellitus type 2insulin-dependent with hyperglycemia Elevated lipase/epigastric pain suspect early acute pancreatitis secondary to hypertriglyceridemia History of DVT/PE on chronic anticoagulation therapy Esophageal stricture/GERD Hypertension Hyperlipidemia PATTIE Plan: Diabetes mellitus type 2insulin-dependent with hyperglycemia: Anion gap 12, serum acetone presentlarge will obtain ABG to rule out DKA. Patient has been without her insulin Tresiba 100 units daily, Humalog 60 units 3 times daily and Trulicity. Patient also reports taking oral medication but unsure what this is. We will continue with insulin drip at this time for management given hypertriglyceridemia induced pancreatitis. Patient without severe abdominal pain will allow for some ice chips and sips of clear liquids this evening. Advance diet as tolerated. Trend lipase. Elevated lipase/epigastric pain suspect early acute pancreatitis secondary to hypertriglyceridemia: Triglycerides significant elevated around 1500 we will continue with insulin drip overnight and monitor triglyceride levels every 12 until level less than 500, hourly blood glucose levels. CT without complications or other findings. N.p.o. with ice chips and sips of clear liquids this evening, trend lipase level advance diet as tolerated. History of DVT/PE on chronic anticoagulation therapy: Continue Eliquis Esophageal stricture/GERD: IV Protonix daily, continue home medications when appropriate. Patient does follow-up with GI on outpatient basis. Hypertension: As needed medication, continue home medications when appropriate Hyperlipidemia: Hold oral medications at this time PATTIE: Provide with CPAP as necessary. DVT PPX: Continue Eliquis Code status: Full code Discharge Plan: Home Plan to discharge in: 48 Hours - Advance Directives Does patient have a Living Will: No Does patient have a Durable POA for Healthcare: No - Code Status/Comfort Care Code Status Assessed: Yes (Full code) Critical Care: No Time Spent Managing Pts Care (In Minutes): 55
[2021-07-13] MEDS ORDERED: ONDANSETRON 4 MG/2 ML VIAL IV PRN (20:16)
[2021-07-13] MEDS ORDERED: SODIUM CHLORIDE 0.9% 10ML INJ IV PRN (20:16)
[2021-07-13] MEDS ORDERED: MECLIZINE HCL 12.5 MG TAB ONE (20:20)
[2021-07-13] MEDS ORDERED: INSULIN -REGULAR HUMAN 50 UNIT/0.5 ML ML SQ SCH (21:00)
[2021-07-13 21:47] LABS: BUN Blood Urea Nitrogen 17 mg/dL (7-18); Bicarbonate 26 mmol/L (21-32); Glucose Level 353 mg/dL (74-106); HDL Cholesterol 37 mg/dL (40-60); Potassium 4.3 mmol/L (3.5-5.1); Sodium Level 138 mmol/L (136-145)
[2021-07-13] MEDS ORDERED: D50W 25 GM/50 ML SYRINGE IV PRN (21:54)
[2021-07-13] MEDS ORDERED: GLUCAGON 1 MG/VIAL IM PRN (21:54)
[2021-07-13 21:58] LABS: LDL, Direct 55 mg/dL (100-129)
[2021-07-13] MEDS ORDERED: D5 0.45 NS 1,000 ML IV SCH (22:00)
[2021-07-13] MEDS ORDERED: NA CHLORIDE 0.9% 100 ML ONE ×2 (22:05→22:22)
[2021-07-13] MEDS ORDERED: D5.45NS W/KCL 20MEQ 1,000 ML IV ONE (23:20)
[2021-07-13] MEDS ORDERED: NA CHLORIDE 0.9% 1,000 ML ONE (23:20)
[2021-07-13] MEDS ORDERED: APIXABAN 5 MG TABLET ONE (23:20)
[2021-07-13] MEDS: NA CHLORIDE 0.9% 1,000 ML IV SCH (23:26)
[2021-07-13] MEDS: APIXABAN 5 MG TABLET PO SCH (23:26)
[2021-07-13] MEDS: D5.45NS W/KCL 20MEQ 20 MEQ/1,000 ML BAG IV SCH (23:27)
[2021-07-14] MEDS ORDERED: METHYLPREDNISOLONE 125 MG INJ ONE (00:26)
[2021-07-14] MEDS ORDERED: LEVALBUTEROL 1.25 MG/3 ML NEB ONE (00:27)
[2021-07-14 05:39] LABS: Basophils % 0.2 % (0-1.3); Hematocrit 36.4 % (36.0-45.0); Lymphocytes % 24.6 % (15.3-44.8); MPV 8.7 fL (7.6-11.3); RBC Red Blood Cell Count 4.06 M/uL (3.86-4.86)
[2021-07-14 06:05] LABS: ALT/SGPT 34 U/L (12-78); AST/SGOT 16 U/L (15-37); Albumin 2.6 g/dL (3.4-5.0); Alkaline Phosphatase 97 U/L (45-117); BUN Blood Urea Nitrogen 14 mg/dL (7-18); Bicarbonate 30 mmol/L (21-32); Bilirubin Total 0.2 mg/dL (0.2-1.0); Glucose Level 197 mg/dL (74-106); Lipase 332 U/L (73-393); Potassium 3.5 mmol/L (3.5-5.1); Protein, Total 5.9 g/dL (6.4-8.2); Sodium Level 141 mmol/L (136-145); Thyroid Stimulating Hormone 0.437 uIU/mL (0.360-3.740)
[2021-07-14] MEDS: NA CHLORIDE 0.9% 1,000 ML IV SCH ×2 (06:16→16:16)
[2021-07-14 06:18] LABS: LDL, Direct 58 mg/dL (100-129)
[2021-07-14] MEDS ORDERED: MORPHINE 2 MG/ML SYR ONE ×2 (07:42→12:47)
[2021-07-14] MEDS ORDERED: ONDANSETRON 4 MG/2 ML VIAL ONE (07:42)
[2021-07-14] MEDS: MORPHINE 2 MG/ML SYR IV PRN ×2 (07:48→12:30)
[2021-07-14] MEDS ORDERED: INSULIN -REGULAR HUMAN 50 UNIT/0.5 ML ML ONE (08:03)
[2021-07-14] MEDS ORDERED: NA CHLORIDE 0.9% 0 ML ONE (08:03)
[2021-07-14] MEDS: APIXABAN 5 MG TABLET PO SCH ×2 (09:00→21:00)
[2021-07-14] MEDS ORDERED: INSULIN GLARGINE 100 UNIT/ML SQ SCH (09:00)
[2021-07-14] MEDS: PANTOPRAZOLE 40 MG INJ IVP SCH (09:00)
[2021-07-14] MEDS: D5.45NS W/KCL 20MEQ 20 MEQ/1,000 ML BAG IV SCH ×2 (09:00→19:00)
[2021-07-14] MEDS ORDERED: NA CHLORIDE 0.9% 1,000 ML ONE ×2 (09:13→20:28)
[2021-07-14] MEDS ORDERED: D5.45NS W/KCL 20MEQ 1,000 ML IV ONE ×2 (09:14→20:27)
[2021-07-14] MEDS ORDERED: PANTOPRAZOLE 40 MG INJ ONE (12:38)
[2021-07-14] MEDS ORDERED: APIXABAN 5 MG TABLET ONE (12:38)
--- NOTE | 2021-07-14 16:30 | P.PN ---
Date of Service: 07/14/21 Subjective: feeling better this morning. 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 Patient does follow-up with GI on outpatient basis. Hypertension: As needed medication, continue home medications when appropriate PATTIE: CPAP as necessary. VTE: Continue Eliquis Code status: Full code Dispo: home in ~48hrs Time Spent Managing Pts Care (In Minutes): 35
[2021-07-14 17:46] LABS: LDL, Direct 72 mg/dL (100-129)
[2021-07-15] MEDS ORDERED: APIXABAN 5 MG TABLET ONE ×2 (04:05→08:33)
[2021-07-15] MEDS ORDERED: NA CHLORIDE 0.9% 1,000 ML ONE ×2 (06:19→16:56)
[2021-07-15] MEDS ORDERED: D5.45NS W/KCL 20MEQ 1,000 ML IV ONE ×2 (06:19→16:56)
[2021-07-15 06:22] LABS: Absolute Lymphocytes (CBC) 1.7 K/uL (0.7-4.9); Basophils % 0.1 % (0-1.3); Hematocrit 31.2 % (36.0-45.0); Lymphocytes % 27.1 % (15.3-44.8); MPV 9.1 fL (7.6-11.3)
[2021-07-15 06:40] LABS: ALT/SGPT 55 U/L (12-78); Albumin 2.2 g/dL (3.4-5.0); Alkaline Phosphatase 76 U/L (45-117); BUN Blood Urea Nitrogen 7 mg/dL (7-18); Bicarbonate 25 mmol/L (21-32); Bilirubin Total 0.2 mg/dL (0.2-1.0); Lipase 175 U/L (73-393); Protein, Total 4.9 g/dL (6.4-8.2); Sodium Level 139 mmol/L (136-145)
[2021-07-15 06:42] LABS: AST/SGOT 69 U/L (15-37); Potassium 4.4 mmol/L (3.5-5.1)
[2021-07-15 06:43] LABS: Glucose Level 404 mg/dL (74-106)
[2021-07-15 06:56] LABS: LDL, Direct 72 mg/dL (100-129)
[2021-07-15] MEDS ORDERED: MORPHINE 2 MG/ML SYR ONE (08:09)
[2021-07-15] MEDS: MORPHINE 2 MG/ML SYR IV PRN (08:21)
[2021-07-15] MEDS ORDERED: PREGABALIN 50 MG CAP ONE ×2 (08:33→14:00)
[2021-07-15] MEDS ORDERED: PANTOPRAZOLE 40 MG INJ ONE (08:33)
[2021-07-15] MEDS: Fluticasone/Salmeterol [Advair 250-50 Diskus] Blst.W.Dev IH SCH (09:00)
[2021-07-15] MEDS: PREGABALIN 50 MG CAP PO SCH ×3 (09:00→20:30)
[2021-07-15] MEDS: APIXABAN 5 MG TABLET PO SCH ×2 (09:00→20:30)
[2021-07-15] MEDS ORDERED: Umeclidinium Brm/Vilanterol Tr [Anoro Ellipta 62.5-25 Mcg Inh] Blst.W.D IH SCH (09:00)
[2021-07-15] MEDS: PANTOPRAZOLE 40 MG INJ IVP SCH (09:00)
[2021-07-15] MEDS: D5.45NS W/KCL 20MEQ 20 MEQ/1,000 ML BAG IV SCH ×2 (15:00→17:09)
[2021-07-15] MEDS ORDERED: ALBUTEROL 2.5 MG/3 ML NEB SOL NEB PRN (15:12)
--- NOTE | 2021-07-15 16:08 | P.PN ---
Date of Service: 07/15/21 Subjective: feeling better this morning. No nausea/vomiting, increased strength and energy Feels about 75% back to her normal self Lipase normalized, triglycerides remain elevated Glucose elevated ROS: 10 point ROS as noted above, otherwise negative Physical exam GEN: Alert, oriented, NAD HEENT: Normal conjunctiva, sclera anicteric CV: Regular rate and rhythm, no edema Pulm: Nonlabored respiration on room air ABD: Soft, nontender, nondistended MSK: No joint tenderness Integumentary: No rashes Neuro: Normal speech, normal affect Problem List Diabetes mellitus type 2insulin-dependent with hyperglycemia Elevated lipase/epigastric pain suspect early acute pancreatitis secondary to hypertriglyceridemia 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 With significant hypertriglyceridemia and minimal improvement last 24 hours, continue insulin drip, continue D5 half NS Tolerating clear liquid diet Lipase improved Can advance diet once off insulin drip, possibly tomorrow History of DVT/PE on chronic anticoagulation therapy: Continue Eliquis Esophageal stricture/GERD: IV Protonix daily, continue home medications when appropriate. Patient does follow-up with GI on outpatient basis. Hypertension: As needed medication, continue home medications when appropriate PATTIE: CPAP as necessary. VTE: Continue Eliquis Code status: Full code Dispo: home in ~24-48hrs Time Spent Managing Pts Care (In Minutes): 35
[2021-07-15] MEDS: NA CHLORIDE 0.9% 1,000 ML IV SCH ×2 (17:09→19:46)
[2021-07-15 17:40] LABS: LDL, Direct 94 mg/dL (100-129)
[2021-07-15] MEDS: DIVALPROEX ER 250 MG TAB PO SCH (20:30)
[2021-07-15] MEDS: OLANZapine 10 MG TABLET PO SCH (20:30)
[2021-07-15 20:54] LABS: Urine Appearance CLEAR (Clear); Urine Bilirubin NEGATIVE (Negative); Urine Blood NEGATIVE (Negative); Urine Color YELLOW (Yellow); Urine Glucose 2+ (Negative); Urine Protein NEGATIVE (Negative); Urine Specific Gravity <=1.005 (1.005-1.030); Urine Urobilinogen 0.2 mg/dL (0.2-1.0); Urine pH 6.5 (5.0-7.0)
[2021-07-15 20:59] LABS: Urine Microscopic Reflex ORDER UMIC
[2021-07-15] MEDS ORDERED: ATORVASTATIN 40 MG TAB PO SCH (21:00)
[2021-07-15 21:07] LABS: Urine Bacteria <20 /HPF (<20); Urine RBC NONE SEEN /HPF (NONE SEEN)
[2021-07-15] MEDS: INSULIN -REGULAR HUMAN 100 UNIT in NA CHLORIDE 0.9% 100 ML IV SCH (23:49)
[2021-07-16] MEDS: D5.45NS W/KCL 20MEQ 20 MEQ/1,000 ML BAG IV SCH ×3 (01:33→23:09)
[2021-07-16] MEDS: MORPHINE 2 MG/ML SYR IV PRN (02:33)
[2021-07-16 05:12] LABS: Absolute Lymphocytes (CBC) 1.7 K/uL (0.7-4.9); Basophils % 0.2 % (0-1.3); Hematocrit 37.8 % (36.0-45.0); Lymphocytes % 28.5 % (15.3-44.8); MPV 8.2 fL (7.6-11.3); RBC Red Blood Cell Count 4.18 M/uL (3.86-4.86)
[2021-07-16 05:25] LABS: Albumin 2.7 g/dL (3.4-5.0); Bilirubin Total 0.3 mg/dL (0.2-1.0); Potassium 3.7 mmol/L (3.5-5.1)
[2021-07-16 05:48] VITALS: BMI 40.2
[2021-07-16 08:48] VITALS: O2SAT 96
[2021-07-16] MEDS: Fluticasone/Salmeterol [Advair 250-50 Diskus] Blst.W.Dev IH SCH (09:00)
[2021-07-16] MEDS ORDERED: VENLAFAXINE HCL XR 75 MG CAP PO SCH ×2 (09:00)
[2021-07-16] MEDS: APIXABAN 5 MG TABLET PO SCH ×2 (09:23→20:12)
[2021-07-16] MEDS: PANTOPRAZOLE 40 MG INJ IVP SCH (09:23)
[2021-07-16] MEDS: PREGABALIN 50 MG CAP PO SCH ×3 (09:23→20:12)
--- NOTE | 2021-07-16 11:41 | P.PN ---
Subjective Date of Service: 07/16/21 Primary Care Provider: Dr. Crooks Chief Complaint: Acute pancreatitis, hyperglycemia Subjective: Improving (Doing well denies any abdominal pain) Review of Systems 10-point ROS is otherwise unremarkable Physical Examination - Vital Signs Temperature: 98 F Blood Pressure: 153/82 Pulse: 61 Respirations: 15 Pulse Ox (%): 94 - Physical Exam General: Alert, In no apparent distress, Oriented x3 Respiratory: Clear to auscultation bilaterally Cardiovascular: No edema, Regular rate/rhythm Gastrointestinal: Normal bowel sounds, Hypoactive, Non-distended, No tenderness Assessment & Plan - Problems (Diagnosis) (1) Pancreatitis Current Visit: Yes Status: Acute Plan: Patient is 55 years of age admitted with pancreatitis from hypertriglyceridemia she did take a statin at home currently doing much better denies any abdominal pain CT scan did not show any evidence of pancreatitis with lipase levels have decreased triglyceride levels were above the thousand an hour declining continue with IV insulin drip until the triglyceride is less than 500 start patient on gemfibrozil DC atorvastatin pancreatitis has resolved start on oral diet patient's blood pressure is mildly elevated
[2021-07-16] MEDS: DIPHENOX/ATROP SULF 1 TAB PO PRN ×2 (12:00→20:13)
[2021-07-16] MEDS ORDERED: POTASSIUM CL SA 10 MEQ TAB PO ONE (12:45)
[2021-07-16] MEDS: INSULIN -REGULAR HUMAN 100 UNIT in NA CHLORIDE 0.9% 100 ML IV SCH (19:43)
[2021-07-16 19:54] LABS: LDL, Direct 92 mg/dL (100-129)
[2021-07-16] MEDS: gemfibroziL 600 MG TAB PO SCH (20:12)
[2021-07-16] MEDS: DIVALPROEX ER 250 MG TAB PO SCH (20:12)
[2021-07-16] MEDS: OLANZapine 10 MG TABLET PO SCH (20:13)
[2021-07-16] MEDS ORDERED: gemfibroziL 600 MG TAB PO SCH (21:00)
[2021-07-17 05:36] LABS: Albumin 2.8 g/dL (3.4-5.0); Bilirubin Total 0.4 mg/dL (0.2-1.0); Potassium 4.1 mmol/L (3.5-5.1); Protein, Total 6.2 g/dL (6.4-8.2)
[2021-07-17] MEDS ORDERED: VENLAFAXINE HCL XR 75 MG CAP PO SCH (09:00)
[2021-07-17] MEDS ORDERED: HOME MED 1 EA UNK (Insulin Degludec [Tresiba Flextouch U-200] 60 UNITS) SQ SCH (09:00)
[2021-07-17] MEDS: APIXABAN 5 MG TABLET PO SCH (09:00)
[2021-07-17] MEDS: Fluticasone/Salmeterol [Advair 250-50 Diskus] Blst.W.Dev IH SCH (09:00)
[2021-07-17] MEDS: PREGABALIN 50 MG CAP PO SCH (09:00)
[2021-07-17] MEDS ORDERED: INSULIN GLARGINE 100 UNIT/ML SQ SCH (09:00)
[2021-07-17] MEDS: gemfibroziL 600 MG TAB PO SCH (09:01)
[2021-07-17] MEDS: D5.45NS W/KCL 20MEQ 20 MEQ/1,000 ML BAG IV SCH (09:14)
--- NOTE | 2021-07-17 09:19 | P.PN ---
Subjective Date of Service: 07/17/21 Primary Care Provider: Dr. Crooks Chief Complaint: Acute pancreatitis, hyperlipidemia Subjective: Improving (Patient is doing well patient is doing well no new complaints triglyceride levels are less than 500 as per mother she is not taking any gemfibrozil) Review of Systems 10-point ROS is otherwise unremarkable Physical Examination - Vital Signs Temperature: 97.2 F Blood Pressure: 151/81 Pulse: 65 Respirations: 23 Pulse Ox (%): 94 - Physical Exam General: Alert, Oriented x3 Respiratory: Clear to auscultation bilaterally, Friction rub Cardiovascular: Regular rate/rhythm Assessment & Plan - Problems (Diagnosis) (1) Pancreatitis Current Visit: Yes Status: Acute Plan: Patient is doing much better triglyceride levels are less than 500 discussed with mother she is not using gemfibrozil at home/possible discharge possible/insulin drip DC'd Qualifiers: Chronicity: acute Pancreatitis type: other
[2021-07-17] MEDS ORDERED: GLUCAGON 1 MG/VIAL IM PRN (11:29)
[2021-07-17] MEDS ORDERED: D50W 25 GM/50 ML SYRINGE IV PRN (11:29)
[2021-07-17] MEDS ORDERED: INSULIN -REGULAR HUMAN 50 UNIT/0.5 ML ML SQ SCH (11:30)
[2021-07-17 12:18] VITALS: BP 151/99; TEMP 97.1
--- NOTE | 2021-07-17 12:27 | P.DS ---
Admission Date: 07/13/21 Discharge Date: 07/17/21 Primary Care Provider: Dr. Crooks Disposition: ROUTINE DISCHARGE Discharge Condition: GOOD Reason for Admission: Acute pancreatitis, hyperlipidemia - Problems (1) Pancreatitis Current Visit: Yes Status: Acute Qualifiers: Chronicity: acute Pancreatitis type: other Brief History of Present Illness: Patient is 55 years of age admitted with pancreatitis from hyperlipidemia she did well with conservative therapy including IV insulin Hospital Course: Patient was started on IV insulin her triglycerides have decreased to less than 500 discussed with the mother she is has not taken gemfibrozil have advised patient to stop the atorvastatin and resume taking gemfibrozil 600 mg twice a day on a very low-fat diet At the time of discharge patient was alert oriented responsive cooperative tolerating a diet no abdominal pain vital signs all stable medications fact to follow-up with primary care Vital Signs/Physical Exam: Temp Pulse Resp BP Pulse Ox 97.1 F 76 14 151/99 H 94 07/17/21 12:00 07/17/21 12:00 07/17/21 12:00 07/17/21 12:00 07/17/21 11:00 Laboratory Data at Discharge: WBC 6.00 K/uL (4.3-10.9) 07/16/21 04:23 Hgb 12.7 g/dL (12.0-15.0) 07/16/21 04:23 Hct 37.8 % (36.0-45.0) D 07/16/21 04:23 Plt Count 171 K/uL (152-406) 07/16/21 04:23 Sodium 144 mmol/L (136-145) 07/17/21 04:45 Potassium 4.1 mmol/L (3.5-5.1) 07/17/21 04:45 BUN 6 mg/dL (7-18) L 07/17/21 04:45 Creatinine 0.81 mg/dL (0.55-1.3) 07/17/21 04:45 Glucose 130 mg/dL (74-106) H 07/17/21 04:45 Total Bilirubin 0.4 mg/dL (0.2-1.0) 07/17/21 04:45 AST 48 U/L (15-37) H 07/17/21 04:45 ALT 75 U/L (12-78) 07/17/21 04:45 Alkaline Phosphatase 102 U/L (45-117) 07/17/21 04:45 Triglycerides 430 mg/dL (<150) H 07/17/21 04:45 Cholesterol 221 mg/dL (<200) H 07/13/21 18:35 LDL Cholesterol Direct 94 mg/dL (100-129) L 07/17/21 04:45 HDL Cholesterol 37 mg/dL (40-60) L 07/13/21 18:35 Cholesterol/HDL Ratio 5.97 07/13/21 18:35 Lipase 106 U/L (73-393) 07/16/21 04:23 Home Medications: Apixaban [Eliquis] 5 mg PO BID 02/19/20 Furosemide [Lasix] 20 mg PO DAILY 02/19/20 Insulin Lispro [Humalog Kwikpen U-100] 30 units SQ ACHS 02/19/20 OLANZapine [Zyprexa*] 15 mg PO BEDTIME 02/19/20 Omeprazole 1 cap PO DAILY 02/19/20 Alprazolam [Xanax] 0.5 mg PO TID 10/11/20 Fluticasone/Salmeterol [Advair 250-50 Diskus] 1 dose IH DAILY 10/11/20 glipiZIDE [Glipizide] 5 mg PO BID 10/11/20 Insulin Degludec [Tresiba Flextouch U-200] 60 units SQ DAILY #2 10/13/20 Pregabalin [Lyrica*] 50 mg PO TID #90 cap 10/13/20 Divalproex Sodium [Depakote ER] 1,500 mg PO BEDTIME 07/15/21 Venlafaxine HCl *Xr* [Effexor XR] 75 mg PO DAILY 07/15/21 Divalproex ER [Depakote *ER] 1,500 mg PO BEDTIME tab 07/17/21 gemfibroziL [Gemfibrozil] 600 mg PO BID #60 tablet 07/17/21 gemfibroziL [Lopid*] 600 mg PO BID #60 tab 07/17/21 New Medications: gemfibroziL [Gemfibrozil] 600 mg PO BID #60 tablet gemfibroziL [Lopid*] 600 mg PO BID #60 tab Physician Discharge Instructions: Patient to start taking atorvastatin after indicated with gemfibrozil which faxed to the pharmacy otherwise resume all other medications Activity: Ad shikha Followup: NONE,NONE [Primary Care Provider] -
[2021-07-17] MEDS ORDERED: HOME MED 1 EA UNK (Divalproex Sodium [Depakote Er] 500 MG Tab.Er.24h) PO SCH (21:00)
== END 2021-07-17 13:15 | disposition home or self-care (01) | DRG 439 ==
LOC: ER 14:26 → ERHOLD 19:26 → 3RD-ICU 07-15 18:44
PROVIDERS: ADMIT Hospitalist; ATTEND Internal Medicine Sleep Medicine
DX: K85.90 Acute pancreatitis without necrosis or infection, unspecified (principal); Z68.41 Body mass index [BMI] 40.0-44.9, adult; E11.65 Type 2 diabetes mellitus with hyperglycemia; E66.9 Obesity, unspecified; I10 Essential (primary) hypertension; F17.200 Nicotine dependence, unspecified, uncomplicated; E78.5 Hyperlipidemia, unspecified; K21.9 Gastro-esophageal reflux disease without esophagitis; G47.33 Obstructive sleep apnea (adult) (pediatric); K22.2 Esophageal obstruction; E78.1 Pure hyperglyceridemia; T38.3X6A Underdosing of insulin and oral hypoglycemic [antidiabetic] drugs, initial encounter; Z88.1 Allergy status to other antibiotic agents; Z88.0 Allergy status to penicillin; Z88.8 Allergy status to other drugs, medicaments and biological substances; Z79.01 Long term (current) use of anticoagulants; Z79.4 Long term (current) use of insulin; Z79.84 Long term (current) use of oral hypoglycemic drugs; Z79.899 Other long term (current) drug therapy; Z79.52 Long term (current) use of systemic steroids; Z91.14 Patient's other noncompliance with medication regimen; Z86.718 Personal history of other venous thrombosis and embolism; Z86.711 Personal history of pulmonary embolism; Z89.422 Acquired absence of other left toe(s); Z89.421 Acquired absence of other right toe(s); Z20.822 Contact with and (suspected) exposure to COVID-19
CPT/HCPCS: 36415; 71046; 74177; 80048; 80053; 80061; 80076; 81003; 81015; 82010; 82947; 83036; 83690; 84439; 84443; 84478; 85025; 85610; 85730; 93005; 93458; 99285; C1893; C9113; J1644; J2250; J2270; J2405; J2930; J3010; J7030; J7040; J7120; J8597; Q9967; U0003

== ENCOUNTER 2024-01-30 10:49 | Emergency (ER) | payer OTHER ==
--- OUTSIDE RECORDS SUMMARY | 2024-01-30 10:58 | XMS REPORT | Continuity of Care Document ---
Author Name Unknown Address [address] [facility] [place] [address] [facility] thconnect Address [address] [facility] [address] [place] [address] Care Team Providers Care C 13 Catapult Operator Name Role Phone Peggy Langley Primary Care Physician [phone] Peggy Langley Attending Clinician Unavailable Diego Solorio Attending Clinician Unavailable [email or web address]_S Attending Clinician Linda Micthell MD Attending Clinician [phone] LINDA HO Attending Clinician Unavailable 2, [facility] Attending Clinician Unavailable Doctor Unassigned, [place] [employer] Attending Clinician NABOR Ferguson Attending Clinician Unavailable NEHA ELY Attending Clinician UnavailNEHA Quiroz Attending Clinician UnavailKAYCE Roman Attending Clinician Unavailable Kayce Romo MD Attending Clinician [phone] NABOR ABBOTT M.D. Attending Clinician Rupesh garcia [email or web address]_S Admitting Clinician Diana danielson Payers Payer Name Policy Type Policy Number Effective Date Expirati on Date Source MEDICARE PART A AND B [id number] 2001 00:00:00 [place] [id number] 2011 00:00:00 MEDICARE [place] [id number] [facility] [id number] [facility] [id number] [facility] [id number] [facility] [id number] [facility] [id number] [facility] [id number] [facility] [id number] [facility] Problems Condition Name Condition Details Condition Category Status Onset Date Resolution Date Last Treatment Date Treating Clinician Comments Source Preoperati ve cardiovasc ular examinatio n Preoperati ve cardiovasc ular examinatio n Disease Active 04-06 00:00: 00 [facility] Elevated blood pressure reading in office without diagnosis of hypertensi on Elevated blood pressure reading in office without diagnosis of hypertensi on Disease Active 04-06 00:00: 00 [facility] Vulvar skin tag Vulvar skin tag Disease Active 01-04 00:00: [address] [facility] BMI 39.0-39.9, adult BMI 39.0-39.9, adult Disease Active 01-04 00:00: [address] 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 ICD10 Diagnosis Term [employer] [facility] Chronic kidney disease Chronic kidney disease Disease Active 01-09 00:00: 00 [facility] Peripheral vascular disease Peripheral vascular disease Disease Active 01-09 00:00: 00 Overview: Formattin g of this note might be different from the original. ICD10 Diagnosis Term [employer] [facility] [id number] Preop examinatio n Problem [facility] [id number] Tremors of nervous system Problem [facility] [id number] Acquired hypothyroi dism Problem [facility] Osteoarthr itis of knee Osteoarthr itis of knee, unilateral Problem [facility] [id number] Other iron deficiency anemia Problem [facility] Arthritis of both knees Arthritis of both knees Problem [facility] Cigarette smoker Cigarette smoker Problem [facility] [id number] Type 2 diabetes mellitus with other diabetic kidney complicati on Problem [facility] [id number] Essential (primary) hypertensi on Problem [facility] [id number] Piriformis syndrome, left Problem [facility] [id number] Pulmonary emphysema, unspecifie d emphysema type Problem [facility] [id number] Gastroesop hageal reflux disease without esophagiti s Problem [facility] [id number] Mixed hyperlipid emia Problem [facility] [id number] PTSD (post-trau matic stress disorder) Problem [facility] [id number] Osteoarthr itis, generalize d Problem [facility] [id number] assisted (current) use of insulin Problem [facility] [id number] Schizoaffe ctive disorder, bipolar type Problem [facility] [id number] Type 2 diabetes mellitus with diabetic polyneurop athy Problem [facility] [id number] Paroxysmal a-fib Problem [facility] [id number] Acute pain of right knee Problem [facility] Nonunion of fracture Closed displaced longitudin al fracture of right patella with nonunion, subsequent encounter Problem [facility] [id number] Primary osteoarthr itis of right knee Problem [facility] [id number] Primary osteoarthr itis of left knee Problem [facility] Arthritis of right knee Arthritis of knee, right Problem [facility] Arthritis of left knee Arthritis of knee, left Problem [facility] History of bipolar disorder History of bipolar disorder Problem [facility] History of deep venous thrombosis History of deep venous thrombosis Problem HL7.CCDAR2 [facility] History of diabetes mellitus History of diabetes mellitus Problem HL7.CCDAR2 [facility] History of hyperchole sterolemia History of hyperchole sterolemia Problem HL7.CCDAR2 [facility] History of pulmonary embolism History of pulmonary embolism Problem HL7.CCDAR2 [facility] History of Cervical dysphagia History of Cervical dysphagia Problem HL7.CCDAR2 [facility] History of Abdominal discomfort History of Abdominal discomfort Problem HL7.CCDAR2 [facility] History of Achalasia History of Achalasia Problem HL7.CCDAR2 [facility] History of heartburn History of heartburn Problem HL7.CCDAR2 [facility] History of hiatal hernia History of hiatal hernia Problem HL7.CCDAR2 [facility] History of vomiting History of vomiting Problem HL7.CCDAR2 [facility] Aftercare following surgery Aftercare following surgery Problem HL7.CCDAR2 Active [facility] Allergies, Adverse Reactions, Alerts Allergy Name Allergy Type Status Severity Reaction(s) Onset Date Inactive Date Treating Clinician Comments Source Pentazoc ine Lactate Propensi ty to adverse reaction s Active Unknown - See comments 01-04 00:00: 00 [facility] PENTAZOC INE LACTATE DRUG INGREDI Active Unknown-Cmnt 01-04 00:00: 00 [facility] Penicill in Propensi ty to adverse reaction s Active Dizziness 04-03 00:00: 00 [facility] Penicill in G Propensi ty to adverse reaction s Active Other - See comments 04-03 00:00: 00 [facility] PENICILL IN DRUG INGREDI Active Dizziness 04-03 00:00: 00 [facility] PENICILL IN G DRUG INGREDI Active Other-Cmnt 04-03 00:00: 00 [facility] Penicill ins drug allergy Active [facility]ic[facility] in Penicill in Active Unknown [facility] amoxicil crissy amoxicil crissy Active Unknown [facility] Family History Family Member Diagnosis Comments Start Date Stop Date Sourc e Mother Family history of ma lignant neoplasm of breast [facility] Social History Social Habit Start Date Stop Date Quantity Comments Source History of Tobacco Use [facility] Sex Assigned At [facility] History SDOH Alcohol Frequency [facility] History SDOH Alcohol Std Drinks [facility] History SDOH Alcohol Binge [facility] Gender identity [facility] Sexual orientation [facility] Exposure to SARS-CoV-2 (event) 2022-03-05 00:00:00 2022-03-15 11:32:00 Not sure [facility] Alcohol intake 2022-01-30 00:00:00 2022-01-30 00:00:00 Current drinker of alcohol (finding) [facility] History of Social function 2022-01-30 00:00:00 2022-01-30 00:00:00 [facility] Cigarettes smoked current (pack per day) - Reported 2022-01-04 00:00:00 2022-01-04 00:00:00 [facility] Cigarette pack-years 2022-01-04 00:00:00 2022-01-04 00:00:00 [facility] Tobacco use and exposure 2022-01-04 00:00:00 2022-01-04 00:00:00 Smokeless tobacco non-user [facility] Alcohol Comment 2013-01-09 00:00:00 2013-01-09 00:00:00 during Holidays or get togethers like fruity alcoholic drinks [facility] Smoking Status Start Date Stop Date Source Smoker. current status unknown [facility] Tobacco smoking consumption unknown [facility] Never Smoker [facility] Former Smoker 2023-11-23 00:00:00 2023-11-23 00:00:00 [facility] Current Smoker 2023-10-16 00:00:00 [facility] Medications Ordered Medication Name Filled Medication Name Start Date Stop Date Current Medication? Ordering Clinician Indication Dosage Frequency Signature (SIG) Comments Components Source NovoLIN R FlexPen 100 UNIT/ML NovoLIN R FlexPen 100 UNIT/ML 5-13 00:00: 00 No TID NovoLIN R FlexPen 100 UNIT/ML Ozempic (2 MG/DOSE) 8 MG/3ML Ozempic (2 MG/DOSE) 8 MG/3ML 4-05 00:00: 00 No Ozempic (2 MG/DOSE) 8 MG/3ML icosapent ethyL (VASCEPA) 1 gram capsule 04-06 10:30: 55 Yes 2g Take 2 capsules by mouth in the morning and 2 capsules in the evening. [facility] buPROPion SR (WELLBUTRIN SR) 150 mg SR tablet 04-06 10:29: 39 Yes 150mg Take 1 tablet by mouth in the morning and 1 tablet in the evening. [facility] gabapentin (NEURONTIN) 600 mg tablet 04-06 10:26: 06 Yes 600mg Take 1 tablet by mouth in the morning and 1 tablet at noon and 1 tablet in the evening. [facility] divalproex ER (DEPAKOTE ER) 500 mg 24 hr tablet 04-06 10:26: 06 Yes 1000mg Take 2 tablets by mouth every 24 (twenty-fo ur) hours. [facility] OLANZapine 10 mg tablet 04-06 10:26: 06 Yes 10mg Take 1 tablet by mouth in the morning. [facility] olanzapine ZYDIS 5 mg rapid tablet 04-06 10:26: Yes 5mg Take 1 tablet by mouth in the morning. [facility] omeprazole 20 mg tablet 04-06 10:26: 06 Yes 20mg Take 1 tablet by mouth in the morning. [facility] atorvastati n 20 mg tablet 04-06 10:26: Yes 20mg Take 1 tablet by mouth at bedtime. [facility] albuterol (PROVENTIL HFA) 90 mcg/actuati on inhaler 04-06 10:: 04-06 00:00 :00 No 2{puff} Inhale 2 Puffs every 6 (six) hours as needed. [facility] SERTraline (ZOLOFT) 100 mg tablet 04-06 10:: 04-06 00:00 :00 No 100mg Take 1 tablet by mouth in the morning. Take 1.5 tabs daily [facility] pentazocine -naloxone (TALWIN NX) 50-0.5 mg tablet 04-06 10:: 04-06 00:00 :00 No 1{tbl} Take 1 tablet by mouth every 4 (four) hours as needed. [facility] topiramate (TOPAMAX) 200 mg tablet 04-06 10:04-06 00:00 :00 No 200mg Take 1 tablet by mouth in the morning and 1 tablet in the evening. [facility] pantoprazol e (PROTONIX) 40 mg EC tablet 04-06 10:: 04-06 00:00 :00 No 40mg Take 1 tablet by mouth in the morning. [facility] pravastatin (PRAVACHOL) 40 mg tablet 04-06 10:: 04-06 00:00 :00 No 40mg Take 1 tablet by mouth at bedtime. [facility] risperiDONE (RISPERDAL) 1 mg tablet 04-06 10:04-06 00:00 :00 No 1mg Take 1 tablet by mouth in the morning and 1 tablet in the evening. [facility] pregabalin (LYRICA) 150 mg capsule 04-06 10:04-06 00:00 :00 No 150mg Take 1 capsule by mouth in the morning and 1 capsule in the evening. [facility] rosuvastati n 40 mg tablet 04-06 10:04-06 00:00 :00 No 40mg Take 1 tablet by mouth at bedtime. [facility] ALPRAZolam 0.5 mg tablet 04-06 10:04-06 00:00 :00 No .5mg Take 1 tablet by mouth in the morning and 1 tablet at noon and 1 tablet in the evening. [facility] rivaroxaban (XARELTO) 20 mg tablet 04-06 10:04-06 00:00 :00 No Take by mouth. [facility] apixaban (ELIQUIS) 5 mg tablet 04-06 10:04-06 00:00 :00 No 5mg Take 1 tablet by mouth in the morning and 1 tablet in the evening. [facility] acetaminoph en-codeine (TYLENOL-CO DEINE #4) 300-60 mg tablet 04-06 10:04-06 00:00 :00 No 1{tbl} Take 1 tablet by mouth every 4 (four) hours as needed for Pain. [facility] furosemide (LASIX) 20 mg tablet 04-06 10:04-06 00:00 :00 No 20mg Take 1 tablet by mouth in the morning. [facility] dicyclomine 10 mg capsule 03-30 00:00: 00 Yes 10mg Take 1 capsule by mouth in the morning and 1 capsule at noon and 1 capsule in the evening. [facility] famotidine 20 mg tablet 03-30 00:00: 00 Yes 20mg Take 1 tablet by mouth in the morning. [facility] gemfibroziL 600 mg tablet 03-08 00:00: 00 04-06 00:00 :00 No 600mg Take 1 tablet by mouth in the morning and 1 tablet in the evening. [facility] ezetimibe 10 mg tablet 03-02 00:00: 00 Yes 10mg Take 1 tablet by mouth in the morning. [facility] glipiZIDE 10 mg tablet 03-02 00:00: 00 Yes 20mg Take 2 tablets by mouth in the morning. [facility] OZEMPIC 0.25 mg or 0.5 mg (2 mg/3 mL) PnIj 03-02 00:00: 00 Yes .25mg inject 0.25 mg under the skin weekly. [facility] Ezetimibe 10 MG Ezetimibe 10 MG 02-28 00:00: 00 No 1{table t} QD Ezetimibe 10 MG levothyroxi ne 25 mcg tablet 01-30 00:00: 00 Yes 25ug Take 1 tablet by mouth every morning. [facility] Hyalgan Hyalgan 2021-07 00:00: 00 No 20mg [facility] Levothyroxi ne Sodium 25 MCG Levothyroxi ne Sodium 25 MCG 2021-07 2-14 00:00: 00 No QD Levothyrox ine Sodium 25 MCG SERTraline (ZOLOFT) 100 mg tablet 01-18 09:19: 25 Yes 100mg Take 100 mg by mouth daily. Take 1.5 tabs daily [facility] gabapentin (NEURONTIN) 600 mg tablet 01-18 09:19: 25 Yes 600mg Take 600 mg by mouth 3 (three) times daily. [facility] pentazocine -naloxone (TALWIN NX) 50-0.5 mg tablet 01-18 09:19: 25 Yes 1{tbl} Take 1 Tab by mouth every 4 (four) hours as needed. [facility] topiramate (TOPAMAX) 200 mg tablet 01-18 09:19: 25 Yes 200mg Take 200 mg by mouth 2 (two) times daily. [facility] pantoprazol e (PROTONIX) 40 mg EC tablet 01-18 09:19: 25 Yes 40mg Take 40 mg by mouth daily. [facility] pravastatin (PRAVACHOL) 40 mg tablet 01-18 09:19: 25 Yes 40mg Take 40 mg by mouth at bedtime. [facility] risperiDONE (RISPERDAL) 1 mg tablet 01-18 09:19: 25 Yes 1mg Take 1 mg by mouth 2 (two) times daily. [facility] rosuvastati n 40 mg tablet 01-18 09:19: 25 Yes 40mg Take 40 mg by mouth at bedtime. [facility] fluconazole 150 mg tablet 01-18 00:00: 00 04-06 00:00 :00 No [id number] 150mg Take 1 tablet by mouth every 72 (seventy-t wo) hours. [facility] Hyalgan 20 mg Hyalgan 20 mg 01-20 00:00: 00 No 20mg [facility] omeprazole 20 mg tablet 12-31 13:59: 28 Yes 20mg Take 20 mg by mouth daily. [facility] apixaban (ELIQUIS) 5 mg tablet 12-31 13:59: 28 Yes 5mg Take 5 mg by mouth 2 (two) times daily. [facility] atorvastati n 20 mg tablet 12-31 13:59: 28 Yes 20mg Take 20 mg by mouth at bedtime. [facility] acetaminoph en-codeine (TYLENOL-CO DEINE #4) 300-60 mg tablet 12-31 13:59: 28 Yes 1{tbl} Take 1 tablet by mouth every 4 (four) hours as needed for Pain. [facility] furosemide (LASIX) 20 mg tablet 12-31 13:59: 28 Yes 20mg Take 20 mg by mouth daily. [facility] venlafaxine XR 150 mg 24 hr capsule 12-31 13:46: 50 Yes 150mg Take 150 mg by mouth daily with breakfast. [facility] buPROPion SR (WELLBUTRIN SR) 150 mg SR tablet 12-31 13:46: 50 Yes 150mg Take 150 mg by mouth 2 (two) times daily. [facility] pregabalin (LYRICA) 150 mg capsule 12-31 13:46: 50 Yes 150mg Take 150 mg by mouth 2 (two) times daily. [facility] OLANZapine 10 mg tablet 12-31 13:46: 50 Yes 10mg Take 10 mg by mouth daily. [facility] olanzapine ZYDIS 5 mg rapid tablet 12-31 13:46: 50 Yes 5mg Take 5 mg by mouth daily. [facility] ALPRAZolam 0.5 mg tablet 12-31 13:46: 50 Yes .5mg Take 0.5 mg by mouth 3 (three) times daily. [facility] rivaroxaban (XARELTO) 20 mg tablet 12-31 13:46: 50 Yes Take by mouth. [facility] albuterol (PROVENTIL HFA) 90 mcg/actuati on inhaler 12-31 13:46: 49 Yes 2{puff} Inhale 2 Puffs every 6 (six) hours as needed. [facility] divalproex ER (DEPAKOTE ER) 500 mg 24 hr tablet 12-31 13:46: 49 Yes 1000mg Take 1,000 mg by mouth every 24 (twenty-fo ur) hours. [facility] OXYGEN-AIR DELIVERY SYSTEMS MISC 12-31 13:46: 49 Yes [facility] PIOGLITAZON E 30 mg tablet 18 00:00: 00 04-06 00:00 :00 No [id number] TAKE ONE TABLET BY MOUTH DAILY [facility] fenofibrate 145 mg tablet 917 00:00: 00 04-06 00:00 :00 No 145mg Take 1 tablet by mouth daily. [facility] insulin lispro (HUMALOG KWIKPEN INSULIN) 100 unit/mL pen injector 04-03 00:00: 00 Yes [id number] 15U inject 15 Units under the skin 3 (three) times daily before meals. [facility] Insulin [place], Disposable, (TRISHA PEN NEEDLE) 32 gauge x 5/32" Ndle 04-03 00:00: 00 Yes [id number] Use as directed. E 11.621. 4 times daily [facility] insulin degludec (TRESIBA FLEXTOUCH U-200) 200 unit/mL (3 mL) InPn 04-03 00:00: 00 Yes [id number] 100U inject 100 Units under the skin every morning. [facility] insulin lispro (HUMALOG KWIKPEN INSULIN) 100 unit/mL pen injector 04-03 00:00: 00 Yes [id number] 15U inject 15 Units under the skin 3 (three) times daily before meals. [facility] Insulin [place], Disposable, (TRISHA PEN NEEDLE) 32 gauge x 5/32" Ndle 04-03 00:00: 00 Yes [id number] Use as directed. E 11.621. 4 times daily [facility] metformin ER 500 mg 24 hr tablet 04-03 00:00: 00 04-06 00:00 :00 No [id number] 1000mg Take 2 tablets by mouth 2 (two) times daily before breakfast and dinner. [facility] MetFORMIN HCl - 500 MG Oral Tablet MetFORMIN HCl - 500 MG Oral Tablet Yes [facility] ALPRAZolam 1 MG Oral Tablet ALPRAZolam 1 MG Oral Tablet Yes R.[facility] OLANZapine 5 MG Oral Tablet OLANZapine 5 MG Oral Tablet Yes R[facility] Venlafaxine HCl ER 150 MG Oral Tablet Extended Release 24 Hour Venlafaxine HCl ER 150 MG Oral Tablet Extended Release 24 Hour Yes R[facility] Lyrica 150 MG Oral Capsule Lyrica 150 MG Oral Capsule Yes R[facility] Depakote 500 MG Oral Tablet Delayed Release Depakote 500 MG Oral Tablet Delayed Release Yes R[facility] Xarelto 20 MG Oral Tablet Xarelto 20 MG Oral Tablet Yes R[facility] HumaLOG SOLN HumaLOG SOLN Yes R.N. [facility] Tresiba FlexTouch 100 UNIT/ML Subcutaneou s Solution Pen-injecto r Tresiba FlexTouch 100 UNIT/ML Subcutaneou s Solution Pen-injecto r Yes R.N. [facility] Famotidine 20 MG Famotidine 20 MG No 1{table t_at_be dtime_a s_neede d} QD Famotidine 20 MG Gabapentin 300 MG Gabapentin 300 MG No 1{capsu le} TID Gabapentin 300 MG glipiZIDE 10 MG glipiZIDE 10 MG No 1{table t} glipiZIDE 10 MG Dicyclomine HCl 10 MG Dicyclomine HCl 10 MG No 2{capsu les} TID Dicyclomin e HCl 10 MG Propranolol HCl 10 MG Propranolol HCl 10 MG No Propranolo l HCl 10 MG Venlafaxine HCl ER 37.5 MG Venlafaxine HCl ER 37.5 MG No 1{capsu le_with _food} QD Venlafaxin e HCl ER 37.5 MG Venlafaxine HCl ER 75 MG Venlafaxine HCl ER 75 MG No 1{capsu le_with _food} QD Venlafaxin e HCl ER 75 MG HYDROcodone -Acetaminop hen 5-325 MG HYDROcodone -Acetaminop hen 5-325 MG No 1{table t_as_ne eded} QID HYDROcodon e-Acetamin ophen 5-325 MG amLODIPine Besylate 5 MG amLODIPine Besylate 5 MG No 1{table t} QD amLODIPine Besylate 5 MG Immunizations Ordered Immunization Name Filled Immunization Name Date Status Comments Source SARS-COV-2 COVID-19 MODERNA VACCINE 2021-11-28 00:00:00 [facility] SARS-COV-2 COVID-19 MODERNA VACCINE 2021-11-28 00:00:00 Completed [facility] SARS-COV-2 COVID-19 MODERNA 12+ YRS VACCINE 2021-11-28 00:00:00 Completed [facility] SARS-COV-2 COVID-19 MODERNA 12+ YRS VACCINE 2021-11-28 00:00:00 Completed [facility] SARS-COV-2 COVID-19 MODERNA 12+ YRS VACCINE 2021-11-28 00:00:00 Completed [facility] SARS-COV-2 COVID-19 MODERNA 12+ YRS VACCINE 2021-11-28 00:00:00 Completed [facility] SARS-COV-2 COVID-19 MODERNA 12+ YRS VACCINE 2021-11-28 00:00:00 Completed [facility] SARS-COV-2 COVID-19 MODERNA 12+ YRS VACCINE 2021-11-28 00:00:00 Completed [facility] SARS-COV-2 COVID-19 MODERNA 12+ YRS VACCINE 2021-11-28 00:00:00 Completed [facility] SARS-COV-2 COVID-19 MODERNA 12+ YRS VACCINE 2021-11-28 00:00:00 Completed [facility] SARS-COV-2 COVID-19 MODERNA 12+ YRS VACCINE 2021-11-28 00:00:00 Completed [facility] SARS-COV-2 COVID-19 MODERNA 12+ YRS VACCINE 2021-11-28 00:00:00 Completed [facility] SARS-COV-2 COVID-19 MODERNA 12+ YRS VACCINE 2021-11-28 00:00:00 Completed [facility] Hyalgan 20 mg Hyalgan 20 mg 2021-04-14 14:48:00 Completed [facility] Hyalgan 20 mg Hyalgan 20 mg 2021-04-14 14:48:00 Completed [facility] Hyalgan 20 mg Hyalgan 20 mg 2021-04-07 15:09:00 Completed [facility] Hyalgan 20 mg Hyalgan 20 mg 2021-04-07 15:09:00 Completed [facility] Hyalgan 20 mg Hyalgan 20 mg 2021-03-31 14:20:00 Completed [facility] Hyalgan 20 mg Hyalgan 20 mg 2021-03-31 14:20:00 Completed [facility] SARS-COV-2 COVID-19 MODERNA VACCINE 2020-11-05 00:00:00 Completed [facility] SARS-COV-2 COVID-19 MODERNA VACCINE 2020-11-05 00:00:00 Completed [facility] SARS-COV-2 COVID-19 MODERNA 12+ YRS VACCINE 2020-11-05 00:00:00 Completed [facility] SARS-COV-2 COVID-19 MODERNA 12+ YRS VACCINE 2020-11-05 00:00:00 Completed [facility] SARS-COV-2 COVID-19 MODERNA 12+ YRS VACCINE 2020-11-05 00:00:00 Completed [facility] SARS-COV-2 COVID-19 MODERNA 12+ YRS VACCINE 2020-11-05 00:00:00 Completed [facility] SARS-COV-2 COVID-19 MODERNA 12+ YRS VACCINE 2020-11-05 00:00:00 Completed [facility] SARS-COV-2 COVID-19 MODERNA 12+ YRS VACCINE 2020-11-05 00:00:00 Completed [facility] SARS-COV-2 COVID-19 MODERNA 12+ YRS VACCINE 2020-11-05 00:00:00 Completed [facility] SARS-COV-2 COVID-19 MODERNA 12+ YRS VACCINE 2020-11-05 00:00:00 Completed [facility] SARS-COV-2 COVID-19 MODERNA 12+ YRS VACCINE 2020-11-05 00:00:00 Completed [facility] SARS-COV-2 COVID-19 MODERNA 12+ YRS VACCINE 2020-11-05 00:00:00 Completed [facility] SARS-COV-2 COVID-19 MODERNA 12+ YRS VACCINE 2020-11-05 00:00:00 Completed [facility] SARS-COV-2 COVID-19 MODERNA VACCINE 2020-10-08 00:00:00 Completed [facility] SARS-COV-2 COVID-19 MODERNA VACCINE 2020-10-08 00:00:00 Completed [facility] SARS-COV-2 COVID-19 MODERNA 12+ YRS VACCINE 2020-10-08 00:00:00 Completed [facility] SARS-COV-2 COVID-19 MODERNA 12+ YRS VACCINE 2020-10-08 00:00:00 Completed [facility] SARS-COV-2 COVID-19 MODERNA 12+ YRS VACCINE 2020-10-08 00:00:00 Completed [facility] SARS-COV-2 COVID-19 MODERNA 12+ YRS VACCINE 2020-10-08 00:00:00 Completed [facility] SARS-COV-2 COVID-19 MODERNA 12+ YRS VACCINE 2020-10-08 00:00:00 Completed [facility] SARS-COV-2 COVID-19 MODERNA 12+ YRS VACCINE 2020-10-08 00:00:00 Completed [facility] SARS-COV-2 COVID-19 MODERNA 12+ YRS VACCINE 2020-10-08 00:00:00 Completed [facility] SARS-COV-2 COVID-19 MODERNA 12+ YRS VACCINE 2020-10-08 00:00:00 Completed [facility] SARS-COV-2 COVID-19 MODERNA 12+ YRS VACCINE 2020-10-08 00:00:00 Completed [facility] SARS-COV-2 COVID-19 MODERNA 12+ YRS VACCINE 2020-10-08 00:00:00 Completed [facility] SARS-COV-2 COVID-19 MODERNA 12+ YRS VACCINE 2020-10-08 00:00:00 Completed [facility]al[facility] 20 mg Hyalgan 20 mg 2020-09-14 14:38:00 Completed [facility] 20 mg Hyalgan 20 mg 2020-09-14 14:38:00 Completed [facility] 20 mg Hyalgan 20 mg 2020-08-19 15:52:00 Completed [facility] 20 mg Hyalgan 20 mg 2020-08-19 15:52:00 Completed [facility] 20 mg Hyalgan 20 mg 2020-08-12 15:01:00 Completed [facility] 20 mg Hyalgan 20 mg 2020-08-12 15:01:00 Completed [facility] 20 mg Hyalgan 20 mg 2020-01-27 13:02:00 Completed [facility] [place] 20 mg Hyalgan 20 mg 2020-01-27 13:02:00 Completed [facility] 20 mg Hyalgan 20 mg 2020-01-21 10:19:00 Completed [facility] 20 mg Hyalgan 20 mg 2020-01-21 10:19:00 Completed [facility] 20 mg Hyalgan 20 mg 2020-01-08 16:25:00 Completed [facility] 20 mg Hyalgan 20 mg 2020-01-08 16:25:00 Completed [facility] 20 mg Hyalgan 20 mg 2019-01-30 11:42:00 Completed [facility] 20 mg Hyalgan 20 mg 2019-01-30 11:42:00 Completed [facility] 20 mg Hyalgan 20 mg 2019-01-30 11:41:00 Completed [facility] [place] 20 mg Hyalgan 20 mg 2019-01-30 11:41:00 Completed [facility] 20 mg Hyalgan 20 mg 2019-01-20 11:14:00 Completed [facility] [place] 20 mg Hyalgan 20 mg 2019-01-20 11:14:00 Completed [facility] [place] 20 mg Hyalgan 20 mg 2019-01-20 11:13:00 Completed [facility] [place] 20 mg Hyalgan 20 mg 2019-01-20 11:13:00 Completed [facility] [place] 20 mg Hyalgan 20 mg 2019-01-14 09:54:00 Completed [facility] 20 mg Hyalgan 20 mg 2019-01-14 09:54:00 Completed [facility] [place] 20 mg Hyalgan 20 mg 2019-01-14 09:51:00 Completed [facility] 20 mg Hyalgan 20 mg 2019-01-14 09:51:00 Completed [facility] 20 mg Hyalgan 20 mg 2018-05-27 10:17:00 Completed [facility] [place] 20 mg Hyalgan 20 mg 2018-05-27 10:17:00 Completed [facility] [place] 20 mg Hyalgan 20 mg 2018-05-27 10:14:00 Completed [facility] [place] 20 mg Hyalgan 20 mg 2018-05-27 10:14:00 Completed [facility] [place] 20 mg Hyalgan 20 mg 2018-05-21 15:57:00 Completed [facility] [place] 20 mg Hyalgan 20 mg 2018-05-21 15:57:00 Completed [facility] [place] 20 mg Hyalgan 20 mg 2018-05-21 15:56:00 Completed [facility] [place] 20 mg Hyalgan 20 mg 2018-05-21 15:56:00 Completed [facility] [place] 20 mg Hyalgan 20 mg 2018-05-13 13:40:00 Completed [facility] [place] 20 mg Hyalgan 20 mg 2018-05-13 13:40:00 Completed [facility] [place] 20 mg Hyalgan 20 mg 2018-05-13 13:40:00 Completed [facility] [place] 20 mg Hyalgan 20 mg 2018-05-13 13:40:00 Completed [facility] SARS-COV-2 COVID-19 MODERNA 12+ YRS VACCINE Unknown Completed [facility] SARS-COV-2 COVID-19 MODERNA 12+ YRS VACCINE Unknown Completed [facility] SARS-COV-2 COVID-19 MODERNA 12+ YRS VACCINE Unknown Completed [facility] SARS-COV-2 COVID-19 MODERNA 12+ YRS VACCINE Unknown Completed [facility] SARS-COV-2 COVID-19 MODERNA 12+ YRS VACCINE Unknown Completed [facility] SARS-COV-2 COVID-19 MODERNA 12+ YRS VACCINE Unknown Completed [facility] SARS-COV-2 COVID-19 MODERNA 12+ YRS VACCINE Unknown Completed [facility] SARS-COV-2 COVID-19 MODERNA 12+ YRS VACCINE Unknown Completed [facility] SARS-COV-2 COVID-19 MODERNA 12+ YRS VACCINE Unknown Completed [facility] Vital Signs Vital Name Observation Time Observation Value Comments S nabila height 2023 16:00:00 71 [in_i] [facility] weight 2023 16:00:00 290 [lb_av] [facility] bmi 2023 16:00:00 40.44 kg/m2 [facility] height 2023-12-27 14:00:00 71 [in_i] [facility] weight 2023-12-27 14:00:00 290.6 [lb_av] [facility] temperature 2023-12-27 14:00:00 97.7 [degF] [facility] bmi 2023-12-27 14:00:00 40.53 kg/m2 [facility] blood pressure systolic 2023-12-27 14:00:00 128 mm[Hg] [facility] blood pressure diastolic 2023-12-27 14:00:00 76 mm[Hg] [facility] height 2023-11-22 13:30:00 71 [in_i] [facility] weight 2023-11-22 13:30:00 290 [lb_av] [facility] temperature 2023-11-22 13:30:00 98.0 [degF] [facility] bmi 2023-11-22 13:30:00 40.44 kg/m2 [facility] blood pressure systolic 2023-11-22 13:30:00 124 mm[Hg] [facility] blood pressure diastolic 2023-11-22 13:30:00 74 mm[Hg] [facility] height 2023-10-26 11:20:00 71 [in_i] [facility] weight 2023-10-26 11:20:00 290 [lb_av] [facility] temperature 2023-10-26 11:20:00 97.4 [degF] [facility] bmi 2023-10-26 11:20:00 40.44 kg/m2 [facility] oximetry 2023-10-26 11:20:00 96 % [facility] respiratory rate 2023-10-26 11:20:00 17 /min [facility] blood pressure systolic 2023-10-26 11:20:00 130 mm[Hg] [facility] blood pressure diastolic 2023-10-26 11:20:00 76 mm[Hg] [facility] height 2023-10-15 14:00:00 71 [in_i] [facility] weight 2023-10-15 14:00:00 277 [lb_av] [facility] temperature 2023-10-15 14:00:00 98.0 [degF] [facility] bmi 2023-10-15 14:00:00 38.63 kg/m2 [facility] blood pressure systolic 2023-10-15 14:00:00 136 mm[Hg] [facility] blood pressure diastolic 2023-10-15 14:00:00 84 mm[Hg] [facility] height 2023-09-20 13:00:00 71 [in_i] [facility] weight 2023-09-20 13:00:00 277 [lb_av] [facility] temperature 2023-09-20 13:00:00 98.1 [degF] [facility] bmi 2023-09-20 13:00:00 38.63 kg/m2 [facility] blood pressure systolic 2023-09-20 13:00:00 124 mm[Hg] [facility] blood pressure diastolic 2023-09-20 13:00:00 74 mm[Hg] [facility] height 2023-09-10 11:00:00 71 [in_i] [facility] weight 2023-09-10 11:00:00 277 [lb_av] [facility] temperature 2023-09-10 11:00:00 97.8 [degF] [facility] bmi 2023-09-10 11:00:00 38.63 kg/m2 [facility] blood pressure systolic 2023-09-10 11:00:00 126 mm[Hg] [facility] blood pressure diastolic 2023-09-10 11:00:00 82 mm[Hg] [facility] height 2023-08-31 11:20:00 71 [in_i] [facility] weight 2023-08-31 11:20:00 277 [lb_av] [facility] temperature 2023-08-31 11:20:00 97.4 [degF] [facility] bmi 2023-08-31 11:20:00 38.63 kg/m2 [facility] oximetry 2023-08-31 11:20:00 98 % [facility] respiratory rate 2023-08-31 11:20:00 17 /min [facility] blood pressure systolic 2023-08-31 11:20:00 124 mm[Hg] [facility] blood pressure diastolic 2023-08-31 11:20:00 68 mm[Hg] [facility] height 2023-08-09 11:00:00 71 [in_i] [facility] weight 2023-08-09 11:00:00 278 [lb_av] [facility] temperature 2023-08-09 11:00:00 97.6 [degF] [facility] bmi 2023-08-09 11:00:00 38.77 kg/m2 [facility] blood pressure systolic 2023-08-09 11:00:00 128 mm[Hg] [facility] blood pressure diastolic 2023-08-09 11:00:00 77 mm[Hg] [facility] height 2023-08-03 11:20:00 71 [in_i] [facility] weight 2023-08-03 11:20:00 278 [lb_av] [facility] temperature 2023-08-03 11:20:00 97.2 [degF] [facility] bmi 2023-08-03 11:20:00 38.77 kg/m2 [facility] oximetry 2023-08-03 11:20:00 96 % [facility] respiratory rate 2023-08-03 11:20:00 16 /min [facility] blood pressure systolic 2023-08-03 11:20:00 108 mm[Hg] [facility] blood pressure diastolic 2023-08-03 11:20:00 59 mm[Hg] [facility] height 2023-08-01 14:40:00 71 [in_i] [facility] weight 2023-08-01 14:40:00 275 [lb_av] [facility] temperature 2023-08-01 14:40:00 97.4 [degF] [facility] bmi 2023-08-01 14:40:00 38.35 kg/m2 [facility] oximetry 2023-08-01 14:40:00 96 % [facility] respiratory rate 2023-08-01 14:40:00 16 /min [facility] blood pressure systolic 2023-08-01 14:40:00 144 mm[Hg] [facility] blood pressure diastolic 2023-08-01 14:40:00 82 mm[Hg] [facility] height 2023-07-04 15:00:00 71 [in_i] [facility] weight 2023-07-04 15:00:00 275 [lb_av] [facility] temperature 2023-07-04 15:00:00 97.8 [degF] [facility] bmi 2023-07-04 15:00:00 38.35 kg/m2 [facility] oximetry 2023-07-04 15:00:00 96 % [facility] respiratory rate 2023-07-04 15:00:00 16 /min [facility] blood pressure systolic 2023-07-04 15:00:00 148 mm[Hg] [facility] blood pressure diastolic 2023-07-04 15:00:00 82 mm[Hg] [facility] temperature 2023-05-14 15:40:00 97.0 [degF] [facility] bmi 2023-05-14 15:40:00 36.96 kg/m2 [facility] oximetry 2023-05-14 15:40:00 96 % [facility] respiratory rate 2023-05-14 15:40:00 17 /min [facility] blood pressure systolic 2023-05-14 15:40:00 130 mm[Hg] [facility] blood pressure diastolic 2023-05-14 15:40:00 78 mm[Hg] [facility] height 2023-05-14 15:40:00 71 [in_i] [facility] weight 2023-05-14 15:40:00 265 [lb_av] [facility] Systolic blood pressure 2023-04-06 15:10:00 144 mm[Hg] [facility] Diastolic blood pressure 2023-04-06 15:10:00 73 mm[Hg] [facility] Heart rate 2023-04-06 15:10:00 74 /min [facility] Body temperature 2023-04-06 15:10:00 36.5 Lissette [facility] Respiratory rate 2023-04-06 15:10:00 16 /min [facility] Body height 2023-04-06 15:10:00 180.3 cm [facility] Body weight 2023-04-06 15:10:00 125.646 kg [facility] BMI 2023-04-06 15:10:00 38.63 kg/m2 [facility] Oxygen saturation in Arterial blood by Pulse oximetry 2023-04-06 15:10:00 96 /min [facility] height 2023-04-06 15:20:00 71 [in_i] [facility] weight 2023-04-06 15:20:00 279.0 [lb_av] [facility] temperature 2023-04-06 15:20:00 97.2 [degF] [facility] bmi 2023-04-06 15:20:00 38.91 kg/m2 [facility] oximetry 2023-04-06 15:20:00 88 % [facility] respiratory rate 2023-04-06 15:20:00 16 /min [facility] blood pressure systolic 2023-04-06 15:20:00 122 mm[Hg] [facility] blood pressure diastolic 2023-04-06 15:20:00 70 mm[Hg] [facility] height 2023-04-06 15:20:00 71 [in_i] [facility] weight 2023-04-06 15:20:00 279.0 [lb_av] [facility] temperature 2023-04-06 15:20:00 97.2 [degF] [facility] bmi 2023-04-06 15:20:00 38.91 kg/m2 [facility] oximetry 2023-04-06 15:20:00 88 % [facility] respiratory rate 2023-04-06 15:20:00 16 /min [facility] blood pressure systolic 2023-04-06 15:20:00 122 mm[Hg] [facility] blood pressure diastolic 2023-04-06 15:20:00 70 mm[Hg] [facility] height 2023-03-08 14:45:00 71 [in_i] [facility] weight 2023-03-08 14:45:00 267 [lb_av] [facility] temperature 2023-03-08 14:45:00 98.3 [degF] [facility] bmi 2023-03-08 14:45:00 37.23 kg/m2 [facility] blood pressure systolic 2023-03-08 14:45:00 136 mm[Hg] [facility] blood pressure diastolic 2023-03-08 14:45:00 84 mm[Hg] [facility] height 2023-03-05 10:00:00 71 [in_i] [facility] weight 2023-03-05 10:00:00 258.7 [lb_av] [facility] temperature 2023-03-05 10:00:00 97.3 [degF] [facility] bmi 2023-03-05 10:00:00 36.08 kg/m2 [facility] oximetry 2023-03-05 10:00:00 97 % [facility] blood pressure systolic 2023-03-05 10:00:00 132 mm[Hg] [facility] blood pressure diastolic 2023-03-05 10:00:00 78 mm[Hg] [facility] height 2023-03-01 13:45:00 71 [in_i] [facility] weight 2023-03-01 13:45:00 267 [lb_av] [facility] temperature 2023-03-01 13:45:00 98.0 [degF] [facility] bmi 2023-03-01 13:45:00 37.23 kg/m2 [facility] blood pressure systolic 2023-03-01 13:45:00 130 mm[Hg] [facility] blood pressure diastolic 2023-03-01 13:45:00 80 mm[Hg] [facility] height 2023-02-28 15:00:00 71 [in_i] [facility] weight 2023-02-28 15:00:00 267 [lb_av] [facility] temperature 2023-02-28 15:00:00 97.1 [degF] [facility] bmi 2023-02-28 15:00:00 37.23 kg/m2 [facility] oximetry 2023-02-28 15:00:00 96 % [facility] respiratory rate 2023-02-28 15:00:00 17 /min [facility] blood pressure systolic 2023-02-28 15:00:00 130 mm[Hg] [facility] blood pressure diastolic 2023-02-28 15:00:00 80 mm[Hg] [facility] height 2023-02-22 13:30:00 71 [in_i] [facility] weight 2023-02-22 13:30:00 272.5 [lb_av] [facility] bmi 2023-02-22 13:30:00 38 kg/m2 [facility] blood pressure systolic 2023-02-22 13:30:00 123 mm[Hg] [facility] blood pressure diastolic 2023-02-22 13:30:00 79 mm[Hg] [facility] height 2022-08-30 13:00:00 71 [in_i] [facility] weight 2022-08-30 13:00:00 272 [lb_av] [facility] temperature 2022-08-30 13:00:00 97.6 [degF] [facility] bmi 2022-08-30 13:00:00 37.93 kg/m2 [facility] oximetry 2022-08-30 13:00:00 95 % [facility] respiratory rate 2022-08-30 13:00:00 17 /min [facility] blood pressure systolic 2022-08-30 13:00:00 132 mm[Hg] [facility] blood pressure diastolic 2022-08-30 13:00:00 78 mm[Hg] [facility] height 2022-07-20 14:30:00 71 [in_i] [facility] weight 2022-07-20 14:30:00 280 [lb_av] [facility] temperature 2022-07-20 14:30:00 98.3 [degF] [facility] bmi 2022-07-20 14:30:00 39.05 kg/m2 [facility] blood pressure systolic 2022-07-20 14:30:00 136 mm[Hg] [facility] blood pressure diastolic 2022-07-20 14:30:00 74 mm[Hg] [facility] height 2022-07-10 09:00:00 71 [in_i] [facility] weight 2022-07-10 09:00:00 280 [lb_av] [facility] temperature 2022-07-10 09:00:00 97.1 [degF] [facility] bmi 2022-07-10 09:00:00 39.05 kg/m2 [facility] blood pressure systolic 2022-07-10 09:00:00 126 mm[Hg] [facility] blood pressure diastolic 2022-07-10 09:00:00 84 mm[Hg] [facility] height 2022-07-05 16:00:00 71 [in_i] [facility] weight 2022-07-05 16:00:00 272 [lb_av] [facility] temperature 2022-07-05 16:00:00 98.2 [degF] [facility] bmi 2022-07-05 16:00:00 37.93 kg/m2 [facility] oximetry 2022-07-05 16:00:00 93 % [facility] respiratory rate 2022-07-05 16:00:00 17 /min [facility] blood pressure systolic 2022-07-05 16:00:00 120 mm[Hg] [facility] blood pressure diastolic 2022-07-05 16:00:00 72 mm[Hg] [facility] height 2022-07-05 16:00:00 71 [in_i] [facility] weight 2022-07-05 16:00:00 272 [lb_av] [facility] temperature 2022-07-05 16:00:00 98.2 [degF] [facility] bmi 2022-07-05 16:00:00 37.93 kg/m2 [facility] oximetry 2022-07-05 16:00:00 93 % [facility] respiratory rate 2022-07-05 16:00:00 17 /min [facility] blood pressure systolic 2022-07-05 16:00:00 120 mm[Hg] [facility] blood pressure diastolic 2022-07-05 16:00:00 72 mm[Hg] [facility] height 2022-07-03 09:45:00 71 [in_i] [facility] weight 2022-07-03 09:45:00 280 [lb_av] [facility] temperature 2022-07-03 09:45:00 97.7 [degF] [facility] bmi 2022-07-03 09:45:00 39.05 kg/m2 [facility] blood pressure systolic 2022-07-03 09:45:00 129 mm[Hg] [facility] blood pressure diastolic 2022-07-03 09:45:00 76 mm[Hg] [facility] height 2022-05-29 15:00:00 71 [in_i] [facility] weight 2022-05-29 15:00:00 285 [lb_av] [facility] temperature 2022-05-29 15:00:00 97.8 [degF] [facility] bmi 2022-05-29 15:00:00 39.75 kg/m2 [facility] oximetry 2022-05-29 15:00:00 96 % [facility] respiratory rate 2022-05-29 15:00:00 17 /min [facility] blood pressure systolic 2022-05-29 15:00:00 138 mm[Hg] [facility] blood pressure diastolic 2022-05-29 15:00:00 77 mm[Hg] [facility] height 2022-05-24 16:40:00 71 [in_i] [facility] weight 2022-05-24 16:40:00 285.2 [lb_av] [facility] temperature 2022-05-24 16:40:00 97.6 [degF] [facility] bmi 2022-05-24 16:40:00 39.77 kg/m2 [facility] oximetry 2022-05-24 16:40:00 94 % [facility] respiratory rate 2022-05-24 16:40:00 17 /min [facility] blood pressure systolic 2022-05-24 16:40:00 139 mm[Hg] [facility] blood pressure diastolic 2022-05-24 16:40:00 74 mm[Hg] [facility] height 2022-05-23 13:15:00 71 [in_i] [facility] weight 2022-05-23 13:15:00 280 [lb_av] [facility] temperature 2022-05-23 13:15:00 97.9 [degF] [facility] bmi 2022-05-23 13:15:00 39.05 kg/m2 [facility] blood pressure systolic 2022-05-23 13:15:00 138 mm[Hg] [facility] blood pressure diastolic 2022-05-23 13:15:00 74 mm[Hg] [facility] Systolic blood pressure 2022-03-15 16:48:00 146 mm[Hg] [facility] Diastolic blood pressure 2022-03-15 16:48:00 80 mm[Hg] [facility] Heart rate 2022-03-15 16:48:00 87 /min [facility] Body temperature 2022-03-15 16:48:[address] [facility] Respiratory rate 2022-03-15 16:48:00 17 /min [facility] Body height 2022-03-15 16:48:[address] [facility] Body weight 2022-03-15 16:48:[address] [facility] BMI 2022-03-15 16:48:00 38.49 kg/m2 [facility] Oxygen saturation in Arterial blood by Pulse oximetry 2022-03-15 16:48:00 94 /min [facility] height 2022-02-20 10:00:00 71 [in_i] [facility] weight 2022-02-20 10:00:00 265 [lb_av] [facility] temperature 2022-02-20 10:00:00 97.0 [degF] [facility] bmi 2022-02-20 10:00:00 36.96 kg/m2 [facility] blood pressure systolic 2022-02-20 10:00:00 132 mm[Hg] [facility] blood pressure diastolic 2022-02-20 10:00:00 78 mm[Hg] [facility] Systolic blood pressure 2022-01-30 15:15:00 130 mm[Hg] [facility] Diastolic blood pressure 2022-01-30 15:15:00 82 mm[Hg] [facility] Heart rate 2022-01-30 15:15:00 97 /min [facility] Body temperature 2022-01-30 15:15:00 36.78 L[place] [facility] Respiratory rate 2022-01-30 15:15:00 18 /min [facility] Body height 2022-01-30 15:15:00 180.3 cm [facility] Body weight 2022-01-30 15:15:00 129.729 kg [facility] BMI 2022-01-30 15:15:00 39.89 kg/m2 [facility] height 2021-12-26 14:45:00 71 [in_i] [facility] weight 2021-12-26 14:45:00 267.6 [lb_av] [facility] temperature 2021-12-26 14:45:00 97.6 [degF] [facility] bmi 2021-12-26 14:45:00 37.32 kg/m2 [facility] blood pressure systolic 2021-12-26 14:45:00 136 mm[Hg] [facility] blood pressure diastolic 2021-12-26 14:45:00 84 mm[Hg] [facility] height 2021-12-26 09:00:00 71 [in_i] [facility] weight 2021-12-26 09:00:00 267.8 [lb_av] [facility] temperature 2021-12-26 09:00:00 97.9 [degF] [facility] bmi 2021-12-26 09:00:00 37.35 kg/m2 [facility] oximetry 2021-12-26 09:00:00 100 % [facility] respiratory rate 2021-12-26 09:00:00 18 /min [facility] blood pressure systolic 2021-12-26 09:00:00 132 mm[Hg] [facility] blood pressure diastolic 2021-12-26 09:00:00 78 mm[Hg] [facility] height 2021-12-26 09:00:00 71 [in_i] [facility] weight 2021-12-26 09:00:00 267.8 [lb_av] [facility] temperature 2021-12-26 09:00:00 97.9 [degF] [facility] bmi 2021-12-26 09:00:00 37.35 kg/m2 [facility] oximetry 2021-12-26 09:00:00 100 % [facility] respiratory rate 2021-12-26 09:00:00 18 /min [facility] blood pressure systolic 2021-12-26 09:00:00 132 mm[Hg] [facility] blood pressure diastolic 2021-12-26 09:00:00 78 mm[Hg] [facility] height 2021-11-21 14:00:00 71 [in_i] [facility] weight 2021-11-21 14:00:00 264 [lb_av] [facility] temperature 2021-11-21 14:00:00 97.3 [degF] [facility] bmi 2021-11-21 14:00:00 36.82 kg/m2 [facility] oximetry 2021-11-21 14:00:00 96 % [facility] respiratory rate 2021-11-21 14:00:00 18 /min [facility] blood pressure systolic 2021-11-21 14:00:00 136 mm[Hg] [facility] blood pressure diastolic 2021-11-21 14:00:00 74 mm[Hg] [facility] height 2021-11-07 13:30:00 71 [in_i] [facility] weight 2021-11-07 13:30:00 262 [lb_av] [facility] bmi 2021-11-07 13:30:00 36.54 kg/m2 [facility] blood pressure systolic 2021-11-07 13:30:00 131 mm[Hg] [facility] blood pressure diastolic 2021-11-07 13:30:00 88 mm[Hg] [facility] height 2021-04-07 14:15:00 71 [in_i] [facility] weight 2021-04-07 14:15:00 264 [lb_av] [facility] bmi 2021-04-07 14:15:00 36.82 kg/m2 [facility] blood pressure systolic 2021-04-07 14:15:00 144 mm[Hg] [facility] blood pressure diastolic 2021-04-07 14:15:00 84 mm[Hg] [facility] BP Systolic 2018-05-30 14:10:00 138 mm[Hg] Location: RUE; Position: Sitting [facility] BP Diastolic 2018-05-30 14:10:00 91 mm[Hg] Location: [facility]UE; Position: Sitting [facility] Height 2018-05-30 14:10:00 71 [in_us] [facility] Weight 2018-05-30 14:10:00 249.375 [lb_av] [facility] Body Mass Index Calculated 2018-05-30 14:10:00 34.78 kg/m2 [facility] Temperature 2018-05-30 14:10:00 98 [degF] Method: Oral [facility] Heart Rate 2018-05-30 14:10:00 80 /min Quality: Normal [facility] Respiration Rate 2018-05-30 14:10:00 18 /min Quality: Normal [facility] O2 SAT 2018-05-30 14:10:00 97 % Source: RA [facility] BP Systolic 2018-05-01 11:46:00 126 mm[Hg] Location: RUE; Position: Sitting [facility] BP Diastolic 2018-05-01 11:46:00 75 mm[Hg] Location: [facility]UE; Position: Sitting [facility] Height 2018-05-01 11:46:00 71 [in_us] [facility] Weight 2018-05-01 11:46:00 254.125 [lb_av] [facility] Body Mass Index Calculated 2018-05-01 11:46:00 35.44 kg/m2 [facility] Temperature 2018-05-01 11:46:00 98.4 [degF] Method: Oral [facility] Heart Rate 2018-05-01 11:46:00 76 /min Quality: Normal [facility] Respiration Rate 2018-05-01 11:46:00 19 /min Quality: Normal [facility] O2 SAT 2018-05-01 11:46:00 95 % Source: RA [facility] BP Systolic 2018-04-17 09:58:00 126 mm[Hg] Location: RUE; Position: Sitting [facility] BP Diastolic 2018-04-17 09:58:00 81 mm[Hg] Location: RUE; Position: Sitting [facility] Height 2018-04-17 09:58:00 71 [in_us] [facility] Weight 2018-04-17 09:58:00 248.375 [lb_av] [facility] Body Mass Index Calculated 2018-04-17 09:58:00 34.64 kg/m2 [facility] Temperature 2018-04-17 09:58:00 98.3 [degF] Method: Oral [facility] Heart Rate 2018-04-17 09:58:00 83 /min Quality: Normal [facility] Respiration Rate 2018-04-17 09:58:00 18 /min Quality: Normal [facility] O2 SAT 2018-04-17 09:58:00 95 % Source: RA [facility] Procedures Procedure Date / Time Performed Performing Clinician Source ARMANI MULTI LEVEL - BY VASCULAR LAB 2023-04-30 20:06:00 [facility] TRANSTHORACIC ECHO (TTE) COMPLETE 2023-04-30 18:30:06 [facility] ASSIGNMENT OF BENEFITS 2023-04-06 14:59:20 Docto r Unassigned, [facility] MEDICATION CORRESPONDENCE 2022-01-30 05:01:00 Do ctor Unassigned, [facility] History of Back Surgery [facility] History of Heller Myotomy Laparoscopic Approach [facility] History of Appendectomy [facility] History of Neck surgery [facility] History of Hysterectomy [facility] History of Colon Surgery [facility] Encounters Start Date/Time End Date/Time Encounter Type Admission Type Attending [facility] Care Department Encounter ID Source 2023 10:48:00 Outpatient Peggy Langley STTHIEN [facility] [id number] [facility] 2023-12-18 11:18:00 Outpatient Peggy Langley STLMLC ST[facility] [id number] [facility] 2023-11-07 14:13:00 Outpatient LangleyPeggy de santiago STLMLC ST[facility] [id number] [facility] 2023-10-10 08:15:00 Outpatient LangleyPeggy de santiago STLMLC ST[facility] [id number] [facility] 2023-09-11 08:54:00 Outpatient LangleyPeggy de santiago STLMLC ST[facility] [id number] [facility] 2023-08-30 13:52:00 Outpatient LangleyPeggy de santiago STLMLC ST[facility] [id number] [facility] 2023-08-09 14:03:00 Outpatient LangleyPeggy de santiago STLMLC ST[facility] [id number] [facility] 2023-07-30 10:57:00 Outpatient LangleyPeggy de santiago STLMLC ST[facility] [id number] [facility] 2023-06-11 14:09:00 Outpatient LangleyPeggy de santiago STLMLC ST[facility] [id number] [facility] 2023-06-06 14:53:00 Outpatient LangleyPeggy de santiago STLMLC STL[facility] [id number] [facility] 2023-05-14 15:36:00 Outpatient LangleyGabbi de santiagoi STLMLC STL[facility]C [id number] [facility] 2023-04-04 09:27:00 Outpatient LangleyPeggy de santiago STLMLC [facility] [id number] [facility] 2023-03-02 09:17:00 Outpatient Langley, Peggy ST[facility]C ST[facility] [id number] [facility] 2023-02-27 14:33:00 Outpatient Langley, Peggy STLMLC ST[facility] [id number] [facility] 2023-02-22 15:50:00 Outpatient Langley, Peggy STL[facility]C ST[facility] [id number] [facility] 2023-02-05 09:13:00 Outpatient Langley, Peggy STL[facility]C ST[facility] [id number] [facility] 2022-12-21 09:27:00 Outpatient Langley, Peggy STL[facility]C ST[facility] [id number] [facility] 2022-08-29 08:13:00 Outpatient Langley, Peggy STLMLC ST[facility] [id number] [facility] 2022-08-28 10:26:01 Outpatient Langley, Peggy STLMLC ST[facility]C [id number] [facility] 2022-07-10 15:10:01 Outpatient Langley, Peggy STLMLC ST[facility] [id number] [facility] 2022-07-05 15:56:00 Outpatient Langley, Peggy STLMLC ST[facility] [id number] [facility] 2022-07-04 15:51:00 Outpatient Langley, Peggy STLMLC ST[facility] [id number] [facility] 2022-05-24 08:29:01 Outpatient Langley, Peggy STLMLC ST[facility]C [id number] [facility] 2022-05-23 08:47:01 Outpatient Langley, Peggy STLMLC ST[facility] [id number] [facility] 2022-04-06 09:16:00 Outpatient LangleyPeggy de santiago STLMLC ST[facility] [id number] [facility] 2022-04-04 15:23:01 Outpatient LangleyPeggy de santiago STLMLC STL[facility]C [id number] [facility] 2022-04-04 09:46:28 Outpatient [facility] [id number] [facility] 2022-03-21 16:12:01 Outpatient LangleyPeggy de santiago STLMLC STLMLC [id number] [facility] 2022-03-20 12:35:54 Outpatient [facility] [id number] [facility] 2022-03-15 11:35:07 Outpatient [facility] [id number] [facility] 2022-03-07 14:17:08 Outpatient [facility] [id number] [facility] 2021-12-27 13:58:00 Outpatient LangleyPeggy de santiago STLMLC STLMLC [id number] [facility] 2021-12-22 15:48:01 Outpatient LangleyGabbi de santiagoi STLMLC STL[facility]C [id number] [facility] 2021-12-15 16:05:01 Outpatient LangleyGabbi de santiagoi STLMLC STL[facility]C [id number] [facility] 2021-11-18 13:18:00 Outpatient LangleyGabbii STLMLC STL[facility]C [id number] [facility] 2021-11-07 13:31:00 Outpatient Langley Peggy STLMLC STL[facility]C [id number] [facility] 2021-11-04 10:14:00 Outpatient LangleyGabbi de santiagoi STLMLC STLMLC [id number] [facility] 2021-10-31 14:32:00 Outpatient LangleyGabbii STLMLC STL[facility]C [id number] [facility] 2021-10-26 11:45:01 Outpatient [facility] [id number] [facility] 2021-10-25 13:39:01 Outpatient [facility] [id number] [facility] 2021-08-17 11:42:10 Outpatient [facility] [id number] [facility] 2021-08-17 11:33:34 Outpatient Lyndsey, Diego STLMLC ST[facility]C [id number] [facility] 2024-01-01 00:00:00 2024-01-01 00:00:00 (TEL) STLMLC ST[facility]C [id number] [facility] 2023 00:00:00 2023 00:00:00 (EST. VIDEO) EST VIRTUAL VIDEO VISIT STLMLC STL[facility]C [id number] [facility] 2023-12-27 00:00:00 2023-12-27 00:00:00 OFFICE VISIT ESTAB PT LEVEL 4 [facility] ST[facility]C [id number] [facility] 2023-12-20 00:00:00 2023-12-20 00:00:00 (TEL) STLMLC STLMLC [id number] [facility] 2023-12-18 00:00:00 2023-12-18 00:00:00 (TEL) STLMLC STLMLC [id number] [facility] 2023-12-03 00:00:00 2023-12-03 00:00:00 (TEL) STLMLC STL[facility]C [id number] [facility] 2023-11-22 00:00:00 2023-11-22 00:00:00 OFFICE VISIT ESTAB PT LEVEL 4 [facility] ST[facility]C [id number] [facility] 2023-11-20 00:00:00 2023-11-20 00:00:00 (TEL) STLMLC STLMLC [id number] [facility] 2023-10-26 00:00:00 2023-10-26 00:00:00 OFFICE VISIT ESTAB PT LEVEL 4 [facility]C ST[facility]C [id number] [facility] 2023-10-23 00:00:00 2023-10-23 00:00:00 (TEL) STLMLC STLMLC [id number] [facility] 2023-10-16 00:00:00 2023-10-16 00:00:00 (TEL) STLMLC STLMLC [id number] [facility] 2023-10-15 00:00:00 2023-10-15 00:00:00 OFFICE VISIT ESTAB PT LEVEL 4 [facility]C ST[facility]C [id number] [facility] 2023-09-20 00:00:00 2023-09-20 00:00:00 OFFICE VISIT ESTAB PT LEVEL 4 [facility]C ST[facility]C [id number] [facility] 2023-09-17 00:00:00 2023-09-17 00:00:00 (TEL) STLMLC STLMLC [id number] [facility] 2023-09-10 00:00:00 2023-09-10 00:00:00 OFFICE VISIT ESTAB PT LEVEL 4 [facility]C ST[facility]C [id number] [facility] 2023-09-06 00:00:00 2023-09-06 00:00:00 (TEL) STLMLC STLMLC [id number] [facility] 2023-08-31 00:00:00 2023-08-31 00:00:00 OFFICE VISIT ESTAB PT LEVEL 4 STL[facility]C STL[facility]C [id number] [facility] 2023-08-13 00:00:00 2023-08-13 00:00:00 (TEL) STLMLC STLMLC [id number] [facility] 2023-08-09 00:00:00 2023-08-09 00:00:00 (TEL) STLMLC STLMLC [id number] [facility] 2023-08-09 00:00:00 2023-08-09 00:00:00 OFFICE VISIT ESTAB PT LEVEL 3 STL[facility]C STLMLC [id number] [facility] 2023-08-03 00:00:00 2023-08-03 00:00:00 OFFICE VISIT ESTAB PT LEVEL 3 STL[facility]C STL[facility]C [id number] [facility] 2023-08-01 00:00:00 2023-08-01 00:00:00 OFFICE VISIT ESTAB PT LEVEL 4 STL[facility]C STL[facility]C [id number] [facility] 2023-07-30 00:00:00 2023-07-30 00:00:00 (TEL) STLMLC STLMLC [id number] [facility] 2023-07-04 00:00:00 2023-07-04 00:00:00 OFFICE VISIT ESTAB PT LEVEL 5 STLMLC STLMLC [id number] [facility] 2023-06-29 00:00:00 2023-06-29 00:00:00 (TEL) STLMLC STLMLC [id number] [facility] 2023-05-29 00:00:00 2023-05-29 00:00:00 (TEL) STLMLC STLMLC [id number] [facility] 2023-05-20 00:00:00 2023-05-20 00:00:00 Outpatient GC_GCBZW_Ka darvin_Smith [facility] [id number] [facility] 2023-05-14 00:00:00 2023-05-14 00:00:00 OFFICE VISIT ESTAB PT LEVEL 4 STLMLC STLMLC [id number] [facility] 2023-05-02 14:51:03 2023-05-02 14:51:03 Outpatient SFA S[facility] [id number] [facility] 2023-04-30 13:36:08 2023-04-30 23:59:00 Hospital Encounter Ho Linda [facility] 1..840.114 350.1.13.10 4.2.7.2.686 [id number] [facility] 2023-04-30 12:55:53 2023-04-30 13:35:00 Outpatient R LINDA HO [facility] [id number] [facility] 2023-04-30 12:55:53 2023-04-30 13:35:00 Hospital Encounter [facility] 1..840.114 350.1.13.10 4.2.7.2.686 [id number] [facility] 2023-04-26 15:02:50 2023-04-26 15:02:50 Outpatient SFA [facility] [id number] [facility] 2023-04-16 00:00:00 2023-04-16 00:00:00 (TEL) STLMLC STLMLC [id number] [facility] 2023-04-09 00:00:00 2023-04-09 00:00:00 Telephone Britney [facility] 1.840.114 350.1.13.10 4.2.7.2.686 [id number] [facility] 2023-04-06 11:45:00 2023-04-06 12:00:00 Rn Review Visit 2, Adc Lab Britney [facility] 1..840.114 350.1.13.10 4.2.7.2.686 [id number] [facility] 2023-04-06 11:00:00 2023-04-06 11:14:24 Outpatient R [facility] [id number] [facility] 2023-04-06 11:00:00 2023-04-06 11:14:24 Office Visit Britney [facility] 1.2.840.114 350.1.13.10 4.2.7.2.686 [id number] [facility] 2023-04-06 00:00:00 2023-04-06 00:00:00 Orders Only Doctor Unassigned, [employer] [facility] 1.2.840.114 350.1.13.10 4.2.7.2.686 [id number] [facility] 2023-04-06 00:00:00 2023-04-06 00:00:00 SUB ANNUAL [facility] WELLNESS VISIT STLMLC STLMLC [id number] [facility] 2023-04-06 00:00:00 2023-04-06 00:00:00 OFFICE VISIT ESTAB PT LEVEL 4 STLMLC STLMLC [id number] [facility] 2023-03-14 00:00:00 2023-03-14 00:00:00 (TEL) STLMLC STLMLC [id number] [facility] 2023-03-08 00:00:00 2023-03-08 00:00:00 (IN/ASP) INJ ASP STLMLC STLMLC [id number] [facility] 2023-03-05 00:00:00 2023-03-05 00:00:00 OFFICE VISIT ESTAB PT LEVEL 2 STLMLC STLMLC [id number] [facility] 2023-03-01 00:00:00 2023-03-01 00:00:00 (IN/ASP) INJ ASP STLMLC STLMLC [id number] [facility] 2023-02-28 00:00:00 2023-02-28 00:00:00 OFFICE VISIT ESTAB PT LEVEL 4 STLMLC STLMLC [id number] [facility] 2023-02-22 00:00:00 2023-02-22 00:00:00 OFFICE VISIT ESTAB PT LEVEL 4 STLMLC STLMLC [id number] [facility] 2023-02-08 00:00:00 2023-02-08 00:00:00 (TEL) STLMLC STLMLC [id number] [facility] 2022-12-15 00:00:00 2022-12-15 00:00:00 (TEL) STLMLC STLMLC [id number] [facility] 2022-12-14 00:00:00 2022-12-14 00:00:00 (TEL) STLMLC STLMLC [id number] [facility] 2022-10-12 00:00:00 2022-10-12 00:00:00 (TEL) STLMLC STLMLC [id number] [facility] 2022-09-14 00:00:00 2022-09-14 00:00:00 (TEL) STLMLC STLMLC [id number] [facility] 2022-08-30 00:00:00 2022-08-30 00:00:00 OFFICE VISIT ESTAB PT LEVEL 4 STLMLC STLMLC [id number] [facility] 2022-07-20 00:00:00 2022-07-20 00:00:00 (IN/ASP) INJ ASP STLMLC STLMLC [id number] [facility] 2022-07-10 00:00:00 2022-07-10 00:00:00 (IN/ASP) INJ ASP STLMLC STLMLC [id number] [facility] 2022-07-05 00:00:00 2022-07-05 00:00:00 OFFICE VISIT ESTAB PT LEVEL 4 STLMLC STLMLC [id number] [facility] 2022-07-03 00:00:00 2022-07-03 00:00:00 OFFICE VISIT ESTAB PT LEVEL 4 STLMLC STLMLC [id number] [facility] 2022-05-30 00:00:00 2022-05-30 00:00:00 (TEL) STLMLC STLMLC [id number] [facility] 2022-05-29 00:00:00 2022-05-29 00:00:00 OFFICE VISIT ESTAB PT LEVEL 1 STLMLC STLMLC [id number] [facility] 2022-05-24 00:00:00 2022-05-24 00:00:00 OFFICE VISIT EST PT LEVEL 3 STLMLC STLMLC [id number] [facility] 2022-05-23 00:00:00 2022-05-23 00:00:00 OFFICE VISIT ESTAB PT LEVEL 4 STLMLC STLMLC [id number] [facility] 2022-04-06 00:00:00 2022-04-06 00:00:00 (TEL) STLMLC STLMLC [id number] [facility] 2022-04-06 00:00:00 2022-04-06 00:00:00 OFFICE VISIT ESTAB PT LEVEL 4 STLMLC STLMLC [id number] [facility] 2022-03-28 12:00:00 2022-03-28 12:00:00 Outpatient NABOR [facility] [id number] [facility] 2022-03-21 00:00:00 2022-03-21 00:00:00 OL DIG E/M SVC 11-20 MIN STLMLC STLMLC [id number] [facility] 2022-03-21 00:00:00 2022-03-21 00:00:00 (TEL) STLMLC STLMLC [id number] [facility] 2022-03-15 11:00:00 2022-03-15 12:16:06 Office Visit Nabor Abbott [facility] 1 1.2.840.114 350.1.13.58 9.2.7.2.[id number] [facility] 2022-02-27 00:00:00 2022-02-27 00:00:00 (TEL) STLMLC STLMLC [id number] [facility] 2022-02-20 00:00:00 2022-02-20 00:00:00 OFFICE VISIT ESTAB PT LEVEL 4 STLMLC STLMLC [id number] [facility] 2022-02-01 00:00:00 2022-02-01 00:00:00 [facility] [id number] 2022-01-30 09:30:00 2022-01-30 10:42:47 Outpatient R NEHA ELY CHERYAL [facility] [id number] [facility] 2022-01-30 09:30:00 2022-01-30 10:42:47 Office Visit Neha Ely [facility] 1..114 350.1.13.10 4.2.7.2.686 [id number] [facility] 2022-01-30 09:30:00 2022-01-30 10:42:47 Outpatient R [facility] [id number] [facility] 2022-01-30 00:00:00 2022-01-30 00:00:00 Orders Only Doctor Unassigned, [employer] [facility] 1.840.114 350.1.13.10 4.2.7.2.686 [id number] [facility] 2022-01-25 14:30:00 2022-01-25 14:30:00 Outpatient R KAYCE ROMO [facility] [id number] [facility] 2022-01-18 09:00:00 2022-01-18 10:28:08 Outpatient R KAYCE ROMO [facility] [id number] [facility] 2022-01-18 09:00:00 2022-01-18 10:28:08 Office Visit Kayce Rom[facility] 1.84.114 350.1.13.10 4.2.7.2.686 [id number] [facility] 2022-01-18 09:00:00 2022-01-18 10:28:08 Outpatient R KAYCE ROMO [facility] [id number] [facility] 2022-01-18 09:00:00 2022-01-18 10:28:08 [facility] [id number] [facility] 2022-01-18 09:00:00 2022-01-18 09:00:00 Outpatient R THANIA [facility] [id number] [facility] 2022-01-18 00:00:00 2022-01-18 00:00:00 Orders Only Doctor Unassigned, [employer] [facility] 1.2.840.114 350.1.13.10 4.2.7.2.686 [id number] [facility] 2022-01-04 14:30:00 2022-01-04 14:44:40 Office Visit Neha Ely [facility] 1.2.840.114 350.1.13.10 4.2.7.2.686 [id number] [facility] 2022-01-04 14:30:00 2022-01-04 14:44:40 Outpatient R NEHA ELY CHERYAL [facility] [id number] [facility] 2022-01-04 14:30:00 2022-01-04 14:44:40 Outpatient R NEHA ELY CHERYAL [facility] [id number] [facility] 2021 00:00:00 2021 00:00:00 (TEL) STLMLC STLMLC [id number] [facility] 2021-12-26 00:00:00 2021-12-26 00:00:00 OFFICE VISIT ESTAB PT LEVEL 4 STLMLC STLMLC [id number] [facility] 2021-12-26 00:00:00 2021-12-26 00:00:00 OFFICE VISIT ESTAB PT LEVEL 4 STLMLC ST[facility]C [id number] [facility] 2021-12-26 00:00:00 2021-12-26 00:00:00 (MCR WELL) Medicare Wellness STLMLC STLMLC [id number] [facility] 2021-12-22 00:00:00 2021-12-22 00:00:00 (TEL) STLMLC STLMLC [id number] [facility] 2021-12-05 00:00:00 2021-12-05 00:00:00 (TEL) STLMLC STLMLC [id number] [facility] 2021-11-21 00:00:00 2021-11-21 00:00:00 OFFICE VISIT NEW PT LEVEL 5 STLMLC ST[facility]MLC [id number] [facility] 2021-11-07 00:00:00 2021-11-07 00:00:00 OFFICE VISIT ESTAB PT LEVEL 4 STLMLC [facility]C [id number] [facility] 2021-05-30 00:00:00 2021-05-30 00:00:00 (TEL) STLMLC STLMLC [id number] [facility] 2021-05-24 00:00:00 2021-05-24 00:00:00 (TEL) STLMLC STLMLC [id number] [facility] 2021-05-06 00:00:00 2021-05-06 00:00:00 (TEL) STLMLC STLMLC [id number] [facility] 2021-04-07 00:00:00 2021-04-07 00:00:00 (IN/ASP) INJ ASP STLMLC STLMLC [id number] [facility] 2021-03-31 00:00:00 2021-03-31 00:00:00 Outpatient STLMLC ST[facility] [id number] [facility] 2021-02-25 00:00:00 2021-02-25 00:00:00 Outpatient STLMLC STLMLC [id number] [facility] 2021-01-27 00:00:00 2021-01-27 00:00:00 Outpatient STLMLC STLMLC [id number] [facility] 2021-01-04 00:00:00 2021-01-04 00:00:00 Outpatient STLMLC STLMLC [id number] [facility] 2020-11-26 00:00:00 2020-11-26 00:00:00 Outpatient STLMLC STLMLC [id number] [facility] 2020-09-14 00:00:00 2020-09-14 00:00:00 Outpatient STLMLC STLMLC [id number] [facility] 2020-08-19 00:00:00 2020-08-19 00:00:00 Outpatient STLMLC STLMLC [id number] [facility] 2020-08-12 00:00:00 2020-08-12 00:00:00 Outpatient [facility] [id number] [facility] 2020-08-06 00:00:00 2020-08-06 00:00:00 Outpatient [facility] ST[facility] [id number] [facility] 2020-05-20 00:00:00 2020-05-20 00:00:00 Outpatient [facility] STL[facility]C [id number] [facility] 2020-05-12 00:00:00 2020-05-12 00:00:00 Outpatient [facility] ST[facility] [id number] [facility] 2020-04-16 00:00:00 2020-04-16 00:00:00 Outpatient [facility] ST[facility] [id number] [facility] 2020-02-18 08:00:00 2020-02-18 08:00:00 [facility] [id number] [facility] 2020-02-09 11:53:00 2020-02-09 11:53:00 [facility] [id number] [facility] 2020-01-27 13:00:00 2020-01-27 13:00:00 [facility] [id number] [facility] 2020-01-21 09:30:00 2020-01-21 09:30:00 [facility] [id number] [facility] 2020-01-14 09:18:00 2020-01-14 09:18:00 [facility] [id number] [facility] 2020-01-08 14:15:00 2020-01-08 14:15:00 [facility] [id number] [facility] 2019-12-04 11:00:00 2019-12-04 11:00:00 [facility] [id number] [facility] 2019-11-20 16:22:00 2019-11-20 16:22:00 [facility] [facility] [id number] [facility] 2019-10-06 11:00:00 2019-10-06 11:00:00 [facility] [id number] [facility] 2019-09-29 13:10:00 2019-09-29 13:10:00 [facility] [id number] [facility] 2019-09-11 13:30:00 2019-09-11 13:30:00 [facility] [id number] [facility] 2019-09-01 09:16:00 2019-09-01 09:16:00 [facility] [id number] [facility] 2019-08-29 08:18:00 2019-08-29 08:18:00 [facility] [id number] [facility] 2019-08-22 09:00:00 2019-08-22 09:00:00 [facility] [id number] [facility] 2019-08-20 15:48:00 2019-08-20 15:48:00 [facility] [id number] [facility] 2019-08-18 12:00:00 2019-08-18 12:00:00 [facility] [id number] [facility] 2019-08-06 13:30:00 2019-08-06 13:30:00 [facility] [id number] [facility] 2019-08-04 11:00:00 2019-08-04 11:00:00 [facility] [id number] [facility] 2019-07-29 16:13:00 2019-07-29 16:13:00 [facility] [id number] [facility] 2019-07-21 11:09:00 2019-07-21 11:09:00 [facility] [id number] [facility] 2019-07-10 13:30:00 2019-07-10 13:30:00 [facility] [id number] [facility] 2019-06-12 11:37:00 2019-06-12 11:37:00 [facility] [id number] [facility] 2019-06-09 14:59:00 2019-06-09 14:59:00 [facility] [id number] [facility] 2019-06-09 08:00:00 2019-06-09 08:00:00 [facility] [id number] [facility] 2019-05-28 09:16:00 2019-05-28 09:16:00 [facility] [id number] [facility] 2019-05-27 15:03:00 2019-05-27 15:03:00 [facility] [id number] [facility] 2019-05-22 13:30:00 2019-05-22 13:30:00 [facility] [id number] [facility] 2019-05-08 09:55:00 2019-05-08 09:55:00 [facility] [id number] [facility] 2019-05-06 14:30:00 2019-05-06 14:30:00 [facility] [id number] [facility] 2019-05-02 10:23:00 2019-05-02 10:23:00 [facility] [id number] [facility] 2019-04-28 08:46:00 2019-04-28 08:46:00 [facility] [id number] [facility] 2019-04-22 08:00:00 2019-04-22 08:00:00 [facility] [place] [id number] [facility] 2019-04-17 13:30:00 2019-04-17 13:30:00 [facility] [id number] [facility] 2019-04-14 13:21:00 2019-04-14 13:21:00 [facility] [id number] [facility] 2019-04-14 11:15:00 2019-04-14 11:15:00 [facility] [id number] [facility] 2018-07-31 09:15:00 2018-07-31 09:15:00 Appointmen t; NABOR ABBOTT M.D. BANKI, FARZANEH, M.D. [facility] [id number] [place] Phys[place] ans 2018-05-30 14:00:00 2018-05-30 14:00:00 Appointmen t; NABOR ABBOTT M.D. BANKI, FARZANEH, M.D. [facility] Cardiothora [facility]ic and Vascular Surgery at [facility] [id number] [place] Physici ans 2018-05-01 11:15:00 2018-05-01 11:15:00 Appointmen t; NABOR ABBOTT M.D. BANKI, FARZANEH, M.D. [facility] Cardi[facility] and V[facility] at [facility] [id number] [place] Physici ans 2018-04-17 09:00:00 2018-04-17 09:00:00 Appointmen t; NABOR ABBOTT M.D. BANKI, FARZANEH, M.D. [facility] Cardiothora [facility]ic and Vascular Surgery at [facility] [id number] [place] Physici ans Results Test Description Test Time Test Comments Results Result Co mments Source HEMOGLOBIN [id number] 00:00:00* Test Item Value Reference Range Interpretation Comme nts A1C (test code = 4548-4) 8.4 COMPREHENSIVE METABOLIC PANEL(CMP)2023-05-31 00:00:00* Test Item Value Reference Range Interpretation Comme nts ALBUMIN (test code = 1751-7) 3.9 g/dL See_Comment N [Automated messa ge] The system which generated this result transmitted reference range: 3.6-5.1 g/dL. The reference range was not used to interpret this result as normal/abnormal. ALBUMIN/GLOBULIN RATIO (test code = 1759-0) 1.7 (calc) See_Comment N [Automated messa ge] The system which generated this result transmitted reference range: 1.0-2.5 (calc). The reference range was not used to interpret this result as normal/abnormal. ALKALINE PHOSPHATASE (test code = 6768-6) 76 U/L See_Comment N [Automated message] The system which generated this result transmitted reference range: 37-153 U/L. The reference range was not used to interpret this result as normal/abnormal. ALT (test code = 1742-6) 27 U/L See_Comment N [Automated messa ge] The system which generated this result transmitted reference range: 6-29 U/L. The reference range was not used to interpret this result as normal/abnormal. AST (test code = 1920-8) 17 U/L See_Comment N [Automated messa ge] The system which generated this result transmitted reference range: 10-35 U/L. The reference range was not used to interpret this result as normal/abnormal. BILIRUBIN, TOTAL (test code = 1975-2) 0.3 mg/dL See_Comment N [Automated message] The system which generated this result transmitted reference range: 0.2-1.2 mg/dL. The reference range was not used to interpret this result as normal/abnormal. BUN/CREATININE RATIO (test code = 3097-3) SEE NOTE: (calc) See_Comment [Automated message] The system which generated this result transmitted reference range: 6-22 (calc). The reference range was not used to interpret this result as normal/abnormal. CALCIUM (test code = 60539-6) 9.6 mg/dL See_Comment N [Automated messa ge] The system which generated this result transmitted reference range: 8.6-10.4 mg/dL. The reference range was not used to interpret this result as normal/abnormal. CARBON DIOXIDE (test code = 2027-9) 29 mmol/L See_Comment N [Automated messa ge] The system which generated this result transmitted reference range: 20-32 mmol/L. The reference range was not used to interpret this result as normal/abnormal. CHLORIDE (test code = 2075-0) 103 mmol/L See_Comment N [Automated messa ge] The system which generated this result transmitted reference range: 98-110 mmol/L. The reference range was not used to interpret this result as normal/abnormal. CREATININE (test code = 2160-0) 0.75 mg/dL See_Comment N [Automated messa ge] The system which generated this result transmitted reference range: 0.50-1.03 mg/dL. The reference range was not used to interpret this result as normal/abnormal. GLOBULIN (test code = 29305-2) 2.3 g/dL (calc) See_Comment N [Automated message] The system which generated this result transmitted reference range: 1.9-3.7 g/dL (calc). The reference range was not used to interpret this result as normal/abnormal. GLUCOSE (test code = 2345-7) 176 mg/dL See_Comment H [Automated messa ge] The system which generated this result transmitted reference range: 65-99 mg/dL. The reference range was not used to interpret this result as normal/abnormal. POTASSIUM (test code = 2823-3) 4.8 mmol/L See_Comment N [Automated messa ge] The system which generated this result transmitted reference range: 3.5-5.3 mmol/L. The reference range was not used to interpret this result as normal/abnormal. PROTEIN, TOTAL (test code = 2885-2) 6.2 g/dL See_Comment N [Automated messa ge] The system which generated this result transmitted reference range: 6.1-8.1 g/dL. The reference range was not used to interpret this result as normal/abnormal. SODIUM (test code = 2951-2) 143 mmol/L See_Comment N [Automated messa ge] The system which generated this result transmitted reference range: 135-146 mmol/L. The reference range was not used to interpret this result as normal/abnormal. UREA NITROGEN (BUN) (test code = 3094-0) 19 mg/dL See_Comment N [Automated message] The system which generated this result transmitted reference range: 7-25 mg/dL. The reference range was not used to interpret this result as normal/abnormal. LIPID PANEL WITH REFLEX TO DIRECT [id number] 00:00:00* Test Item Value Reference Range Interpretation Comme nts CHOL/HDLC RATIO (test code = 9830-1) 3.6 (calc) See_Comment N [Automated messa ge] The system which generated this result transmitted reference range: <5.0 (calc). The reference range was not used to interpret this result as normal/abnormal. CHOLESTEROL, TOTAL (test code = 2093-3) 162 mg/dL See_Comment N [Automated message] The system which generated this result transmitted reference range: <200 mg/dL. The reference range was not used to interpret this result as normal/abnormal. HDL CHOLESTEROL (test code = 2085-9) 45 mg/dL See_Comment L [Automated messa ge] The system which generated this result transmitted reference range: > OR = 50 mg/dL. The reference range was not used to interpret this result as normal/abnormal. LDL-CHOLESTEROL (test code = 12331-4) 81 mg/dL (calc) N TRIGLYCERIDES (test code = 2571-8) 272 mg/dL See_Comment H [Automated messa ge] The system which generated this result transmitted reference range: <150 mg/dL. The reference range was not used to interpret this result as normal/abnormal. TSH W/REFLEX TO [id number] 00:00:00* Test Item Value Reference Range Interpretation Comme nts TSH W/REFLEX TO FT4 (test code = 3016-3) 2.21 mIU/L See_Comment N [Automated messa ge] The system which generated this result transmitted reference range: 0.40-4.50 mIU/L. The reference range was not used to interpret this result as normal/abnormal. HEMOGLOBIN [id number] 00:00:00* Test Item Value Reference Range Interpretation Comme nts HEMOGLOBIN A1c (test code = 4548-4) 8.8 % of total Hgb See_Comment H [Automated message] The system which generated this result transmitted reference range: <5.7 % of total Hgb. The reference range was not used to interpret this result as normal/abnormal. CBC (INCLUDES DIFF/PLT)2023-05-31 00:00:00* Test Item Value Reference Range Interpretation Comme nts ABSOLUTE BASOPHILS (test code = 704-7) 31 cells/uL See_Comment N [Automated m essage] The system which generated this result transmitted reference range: 0-200 cells/uL. The reference range was not used to interpret this result as normal/abnormal. ABSOLUTE EOSINOPHILS (test code = 711-2) 69 cells/uL See_Comment N [Automated m essage] The system which generated this result transmitted reference range: 15-500 cells/uL. The reference range was not used to interpret this result as normal/abnormal. ABSOLUTE LYMPHOCYTES (test code = 731-0) 1740 cells/uL See_Comment N [Automated m essage] The system which generated this result transmitted reference range: 850-3900 cells/uL. The reference range was not used to interpret this result as normal/abnormal. ABSOLUTE MONOCYTES (test code = 742-7) 400 cells/uL See_Comment N [Automated m essage] The system which generated this result transmitted reference range: 200-950 cells/uL. The reference range was not used to interpret this result as normal/abnormal. ABSOLUTE NEUTROPHILS (test code = 751-8) 5459 cells/uL See_Comment N [Automated m essage] The system which generated this result transmitted reference range: 2910-1070 cells/uL. The reference range was not used to interpret this result as normal/abnormal. BASOPHILS (test code = 706-2) 0.4 % N EOSINOPHILS (test code = 713-8) 0.9 % N HEMATOCRIT (test code = 4544-3) 36.8 % See_Comment N [Automated messa ge] The system which generated this result transmitted reference range: 35.0-45.0 %. The reference range was not used to interpret this result as normal/abnormal. HEMOGLOBIN (test code = 718-7) 12.3 g/dL See_Comment N [Automated messa ge] The system which generated this result transmitted reference range: 11.7-15.5 g/dL. The reference range was not used to interpret this result as normal/abnormal. LYMPHOCYTES (test code = 736-9) 22.6 % N MCH (test code = 785-6) 29.1 pg See_Comment N [Automated messa ge] The system which generated this result transmitted reference range: 27.0-33.0 pg. The reference range was not used to interpret this result as normal/abnormal. MCHC (test code = 786-4) 33.4 g/dL See_Comment N [Automated messa ge] The system which generated this result transmitted reference range: 32.0-36.0 g/dL. The reference range was not used to interpret this result as normal/abnormal. MCV (test code = 787-2) 87.2 fL See_Comment N [Automated messa ge] The system which generated this result transmitted reference range: 80.0-100.0 fL. The reference range was not used to interpret this result as normal/abnormal. MONOCYTES (test code = 5905-5) 5.2 % N MPV (test code = 776-5) 10.3 fL See_Comment N [Automated messa ge] The system which generated this result transmitted reference range: 7.5-12.5 fL. The reference range was not used to interpret this result as normal/abnormal. NEUTROPHILS (test code = 770-8) 70.9 % N PLATELET COUNT (test code = 777-3) 192 Thousand/uL See_Comment N [Automated message] The system which generated this result transmitted reference range: 140-400 Thousand/uL. The reference range was not used to interpret this result as normal/abnormal. RDW (test code = 788-0) 14.0 % See_Comment N [Automated messa ge] The system which generated this result transmitted reference range: 11.0-15.0 %. The reference range was not used to interpret this result as normal/abnormal. RED BLOOD CELL COUNT (test code = 789-8) 4.22 Million/uL See_Comment N [Automated message] The system which generated this result transmitted reference range: 3.80-5.10 Million/uL. The reference range was not used to interpret this result as normal/abnormal. WHITE BLOOD CELL COUNT (test code = 6690-2) 7.7 Thousand/uL See_Comment N [Automated message] The system which generated this result transmitted reference range: 3.8-10.8 Thousand/uL. The reference range was not used to interpret this result as normal/abnormal. MICROALBUMIN, RANDOM URINE (W/CREATININE)2023-05-31 00:00:00* Test Item Value Reference Range [facility]ation [facility]AT[facility], RANDOM URINE (test code = 2161-8) 212 mg/dL See_Comment N [Automated [employer]] The system which generated this result transmitted reference range: 20-275 mg/dL. The reference range was not used to interpret this result as normal/abnormal. ALBUMIN, URINE (test code = 35165-1) 19.6 mg/dL See Note: mg/dL N ALBUMIN/CREATININ E RATIO, RANDOM URINE (test code = 9318-7) 92 mcg/mg creat See_Comment H [Automated [employer]] The system which generated this result transmitted reference range: <30 mcg/mg creat. The reference range was not used to interpret this result as normal/abnormal. HEMOGLOBIN [id number] 00:00:00* Test Item Value Reference Range Interpretation Comme [facility] A1C (test code = 4548-4) 9.6 Transthoracic echo (TTE)2023-05-01 01:24:08* Test Item Value Reference Range Interpretation Comme [facility] Height (test code = 8582440570) 71 in Weight (test code = 7773466122) 277 lbs Systolic BP (test code = 2188126118) 137 mmHg Diastolic BP (test code = 8906360757) 76 mmHg Heart Rate (test code = 5917994467) 84 bpm Ao root diam (test code = 3560309687) 2.80 cm Aortic root (test code = 7654969832) 2.8 cm Ao root annulus (test code = 6356117242) 2.8 cm BSA (test code = 9728749401) 2.42 m2 LVOT diameter (test code = 5342243836) 2.01 cm LVOT area (test code = 2525851734) 3.20 cm2 LA size (test code = 7510208299) 4.5 cm ACS (test code = 1796997477) 2.14 cm LVIDD (test code = 5895066566) 5.00 cm Left Ventricular End Diastolic Volume by Teichholz Method (test code = 4987943) 117.3 mL IVS (test code = 6150117356) 1.19 cm Interventricular Septum Diastolic Thickness by 2D (test code = 3531482) 1.19 cm LVPWD (test code = 5161487933) 1.17 cm PW (test code = 3228330740) 1.17 cm 0.6-1.1 EF(Teich) (test code = 7566202703) 63.10 % LVIDS (test code = 4808876220) 3.30 cm Left Ventricular End Systolic Volume by Teichholz Method (test code = 1725694) 43.3 mL FS (test code = 5151902277) 34 % EF - 2D (test code = 84378196) 63.10 % TR Peak Star (test code = 7421323659) 237.4 cm/s Triscuspid Valve Regurgitation Peak Gradient (test code = 6746721495) 22.5 mmHg PV PEAK VELOCITY (test code = 6049489842) 112.7 cm/s PV peak gradient (test code = 3729409707) 5.1 mmHg MV E-F slope (test code = 4706622887) 31.40 cm/s MV Peak E Star (test code = 0492448186) 99.0 cm/s MV Peak A Star (test code = 0530282996) 93.3 cm/s E/A ratio (test code = 4960913845) 1.06 ratio MV valve area p 1/2 method (test code = 3123223686) 2.70 cm2 MV dec slope (test code = 3121201438) 360.30 cm/s2 MV P1/2t max star (test code = 4630815064) 99.00 cm/s LVOT stroke volume (test code = 3165029698) 64.50 cm3 LVOT peak star (test code = 1471412004) 103.2 cm/s LVOT mn grad (test code = 7456539793) 1.8 mmHg AV LVOT peak gradient (test code = 2559142443) 4.3 mmHg LVOT peak VTI (test code = 3425031150) 20.4 cm LV V1 mean (test code = 7579931088) 61.80 cm/s Aortic valve mean velocity (test code = 0114519070) 99.9 cm/s Ao peak star (test code = 1872029115) 158.8 cm/s Ao VTI (test code = 3452958480) 34.6 cm AV area by cont VTI (test code = 7116162302) 1.9 cm2 AV area peak star (test code = 3999062708) 2.1 cm2 Ao max PG (test code = 7678179111) 10.10 mm[Hg] AV peak gradient (test code = 0062205645) 10.1 mmHg AV valve area (test code = 5440790897) 1.87 cm2 AV mean gradient (test code = 6618507728) 4.6 mmHg LAV(MOD-sp4) (test code = 0946821960) 40.90 mL LA Volume Index (BP) (test code = 0802968167) 21.2 mL/m2 LA volume (BP) (test code = 0795994323) 51.5 mL LAV(MOD-sp2) (test code = 7823720201) 63.10 mL Radiology Study observation (narrative) (test code = 22309-8) MILTON (test code = MILTON) ?Left?Ventricle: Left ventricle size is normal. Mild basal septal thickening. Normal wall motion. Normal systolic function with a visually estimated EF of 55 - 60%. Indeterminate diastolic function. ?Right?Ventricle: Right ventricle size is normal. Normal systolic function. ?Tricuspid?Valve: Insufficient tricuspid regurgitation jet to estimate RVSP . ?RA pressure is 0-5 mmHg. Left VentricleLeft ventricle size is normal. Mild basal septal thickening. Normal wall motion. Normal systolic function with a visually estimated EF of 55 - 60%. Indeterminate diastolic function.Right VentricleRight ventricle size is normal. Normal systolic function.Left AtriumLeft atrium size is normal.Right AtriumRight atrium size is normal.IVC/SVCIVC diameter is less than or equal to 21 mm and decreases greater than 50% during inspiration; therefore the estimated right atrial pressure is normal (~0-5 mmHg).Mitral ValveMitral valve structure is normal. Trace transvalvular regurgitation.Tricusp id ValveTricuspid valve structure is normal. Trace transvalvular regurgitation. Insufficient tricuspid regurgitation jet to estimate RVSP . RA pressure is 0-5 mmHg.Aortic ValveTricuspid.Pulmon ic ValveNot well visualized.Ascending AortaNormal sized aorta.PericardiumThe pericardium is normal.Study DetailsStudy quality experienced technical difficulty. A complete echocardiogram was performed using 2D, color flow Doppler and spectral Doppler. [facility] [id number] [facility]:00:00* Test Item Value Reference Range Interpretation Comme nts A1C (test code = 4548-4) 10.6 Lumbar Spine 3 ViewsLumbar Spine 3 Views Notes Date/Time Note Provider Source 2023-04-06 11:45:00 [id number]:45:00F ormatting of this note is different from the original.Images from the original note were not included.Venipuncture collection performed by clean technique on the right anticubitus. Total of 1 attempts were made. Slight pressure and a bandage/dressing were applied to the site(s). The patient experienced no complications. The following specimens were processed according to instructions and sent to [facility] laboratories per lab order on 04/06/2023: LT BLUE SST 1 RED LAV PPT DK GREEN (LiHep) DK GREEN (SodH) RAMSAY DK BLUE (K2) DK BLUE (S) ACD Blood Culture NIPT/NTD 75791-5Soglh [id number]:50:42Nurse [id number] 9|[id number] for patient zkbq86104-0Jqppk NoteUT[address] Ia[id number] OJMHIUSJGJHIOAGT4972-50-53R66:50:421.2.840 .415591.1.72.3.15|1.2.840.464999.1.13.104. [id number] [facility]
[2024-01-30] MEDS ORDERED: NA CHLORIDE 0.9% 1,000 ML ONE ×2 (12:15→14:32)
--- NOTE | 2024-01-30 12:21 | RAD REPORT ---
EXAM DESCRIPTION: Rex Single View01/30/2024 11:40 am CLINICAL HISTORY: Cough COMPARISON: Due to technical problems prior exams are unavailable. Comparison to a 2020 report is pr esent. FINDINGS: A 2.5 millimeter nodule left upper lobe The remainder of the lungs appear clear of acute infiltrate. The heart is normal size IMPRESSION: A 2.5 centimeter nodule left upper lobe. The prior report states that also measure 2.5 c entimeters. It probably is benign
[2024-01-30] MEDS ORDERED: ONDANSETRON 4 MG/2 ML VIAL ONE (12:33)
[2024-01-30 12:38] LABS: Absolute Monocytes 0.5 K/uL (0.1-1.3); Absolute Neutrophil 6.2 K/uL (1.8-8.0); Basophils % 0.5 % (0-1.3); Eosinophils % 0.1 % (0-4.4); Hematocrit 40.9 % (36.0-45.0); Hemoglobin 13.7 g/dL (12.0-15.0); Lymphocytes % 12.8 % (15.3-44.8); MCH 30.2 pg (27.0-35.0); MCHC 33.6 g/dL (32.0-36.0); MCV 90.1 fL (80-100); MPV 8.9 fL (7.6-11.3); Monocytes % 6.2 % (3.3-12.3); Neutrophils % 80.4 % (41.7-73.7); Nucleated Red Blood Cells % 0.1 % (0-0); Platelets 200 thou/uL (152-406); RBC Red Blood Cell Count 4.54 M/uL (3.86-4.86); Red Cell Distribution Width 14.4 % (12.1-15.2)
[2024-01-30 12:57] LABS: ALT/SGPT 47 U/L (13-56); AST/SGOT 44 U/L (15-37); Albumin/Globulin Ratio 1.1 (1.1-1.8); Alkaline Phosphatase 109 U/L (45-117); BUN Blood Urea Nitrogen 13 mg/dL (7-18); Bicarbonate 29 mEq/L (21-32); Bilirubin Direct < 0.2 mg/dL (0-0.2); Bilirubin Indirect, Calculated 0.3 mg/dL (0.2-0.8); Bilirubin Total 0.5 mg/dL (0.2-1.0); Globulin 3.6 g/dL (2.3-3.5); Glomerular Filtration Rate 46 ml/min (=/>90); Glucose Level 366 mg/dL (74-106); Magnesium 1.9 mg/dL (1.6-2.4); NT PRO-BNP 158 pg/mL (<125); Protein, Total 7.6 g/dL (6.4-8.2); Sodium Level 134 mEq/L (136-145)
[2024-01-30 12:57] LABS: Specific Gravity > 1.030 (1.005-1.030); Sqamous Epithelial <5 /HPF (None Seen); Urine Bacteria None Seen /HPF (<20); Urine Bilirubin NEGATIVE (Negative); Urine Blood Negative (Negative); Urine Clarity Clear (Clear); Urine Color Light-Yellow (Yellow); Urine Culture Reflex Order NOT NEEDED; Urine Glucose 4+ (Over) (Negative); Urine Ketones 1+ (Negative); Urine Microscopic Reflex YN ORDER UMIC; Urine Nitrite NEGATIVE (Negative); Urine Protein TRACE (Negative); Urine RBC <5 /HPF (None Seen); Urine Urobilinogen Normal (Normal); Urine WBC <5 /HPF (<5); Urine pH 5.5 (5.0-7.0)
[2024-01-30] MEDS ORDERED: INSULIN GLARGINE 100 UNIT/ML SQ ONE (14:30)
[2024-01-30] MEDS ORDERED: INSULIN REGULAR (HUMAN) 100 UNIT/ML ONE (14:32)
[2024-01-30] MEDS ORDERED: METFORMIN HCL 500 MG TAB ONE (16:16)
--- NOTE | 2024-01-30 16:21 | ER ---
Nurse's Notes [facility] Name: Renetta Ramsay Age: 58 yrs Sex: Female : 1965 Arrival Date: 01/30/2024 Time: 10:49 Bed 19 Private MD: Diagnosis: Hyperglycemia, unspecified;Type 2 diabetes mellitus with hyperglycemia;Obesity due to excess calories;Heat exhaustion, unspecified;Nausea Presentation: 01/29 11:26 Chief complaint: Patient states: BGL 566 at home, took insulin, 416 in triage. Reports jl7 N/V/D since last night. Coronavirus screen: At this time, the client does not indicate any symptoms associated with coronavirus-19. Ebola Screen: No symptoms or risks identified at this time. Initial Sepsis Screen: Does the patient meet any 2 criteria? No. Patient's initial sepsis screen is negative. Does the patient have a suspected source of infection? No. Patient's initial sepsis screen is negative. Risk Assessment: Do you want to hurt yourself or someone else? Patient reports no desire to harm self or others. Onset of symptoms was January 30, 2024. 11:26 Method Of Arrival: Ambulatory 7 11:26 Acuity: OLY 3 jl7 Triage Assessment: 11:28 General: Appears in no apparent distress. uncomfortable, Behavior is calm, cooperative, jl7 appropriate for age. Pain: Complains of pain in abdomen diffusely Pain currently is 9 out of 10 on a pain scale. Neuro: Level of Consciousness is awake, alert, obeys commands, Oriented to person, place, time, situation. Cardiovascular: No deficits noted. Respiratory: No deficits noted. GI: Reports diarrhea, nausea, vomiting. Derm: Skin is pink, warm \T\ dry. Historical: - Allergies: 11:28 Amoxicillin; jl7 11:28 aripiprazole; jl7 11:28 PENICILLINS; jl7 11:28 pentazocine lactate; jl7 11:28 Talwin; jl7 - PMHx: 11:28 ADD/ADHD; Bipolar disorder; Chronic pain; Depression; Diabetes - NIDDM; DVT; Esophageal jl7 stricture; High Cholesterol; Hypertension; osteomyelitis; Pancreatitis; - Immunization history:: Adult Immunizations unknown. - Infectious Disease History:: Denies. - Social history:: Smoking status: Reported history of juuling and/or vaping. - Family history:: not pertinent. Screenin:30 [facility] ED Fall Risk Assessment (Adult) History of falling in the last 3 months, nj1 including since admission No falls in past 3 months (0 pts) Confusion or Disorientation No (0 pts) Intoxicated or Sedated No (0 pts) Impaired Gait No (0 pts) Mobility Assist Device Used No (0 pt) Altered Elimination No (0 pt) Score/Fall Risk Level 0 - 2 = Low Risk Oriented to surroundings, Maintained a safe environment, Hourly rounding (assess needs \T\ fall precautionary measures) done. Abuse screen: Denies threats or abuse. Denies injuries from another. Nutritional screening: No deficits noted. Tuberculosis screening: No symptoms or risk factors identified. Assessment: 12:25 General: Appears in no apparent distress. uncomfortable, Behavior is calm, cooperative, nj1 appropriate for age. 12:25 Pain: Complains of pain in umbilical area Pain currently is 9 out of 10 on a pain nj1 scale. Neuro: Level of Consciousness is awake, alert, obeys commands, Oriented to person, place, time, situation. Cardiovascular: Patient's skin is warm and dry. Respiratory: Airway is patent Respiratory effort is even, unlabored. GI: Reports upper abdominal pain, diarrhea, intolerance of fluids, intolerance of food, nausea, vomiting. 13:35 Reassessment: Patient appears in no apparent distress at this time. Patient and/or nj1 family updated on plan of care and expected duration. Pain level reassessed. Patient is alert, oriented x 3, equal unlabored respirations, skin warm/dry/pink. 14:47 Reassessment: Patient and/or family updated on plan of care and expected duration. Pain kj2 level reassessed. Patient states symptoms have improved. 16:36 Reassessment: Patient appears in no apparent distress at this time. Patient is alert, kj2 oriented x 3, equal unlabored respirations, skin warm/dry/pink. Patient states symptoms have improved. 16:36 : No deficits noted. kj2 Vital Signs: 11:26 BP 154 / 81; Pulse 89; Resp 17; Temp 97.9; Pulse Ox 95% ; Weight 121.11 kg; Height 5 jl7 ft. 10 in. ; Pain 9/10; 12:30 BP 147 / 81; Pulse 62; Resp 12; Pulse Ox 97% on R/A; Pain 9/10; nj1 13:34 BP 168 / 76; Pulse 63; Resp 11; Pulse Ox 99% on R/A; nj1 14:47 BP 148 / 73; Pulse 59; Resp 18; Pulse Ox 96% on R/A; kj2 15:27 BP 165 / 69; Pulse 66; Resp 20; Pulse Ox 97% on R/A; kj2 16:50 BP 159 / 83; Pulse 65; Resp 18; Temp 98(O); Pulse Ox 99% on R/A; kj2 11:26 Body Mass Index 38.31 (121.11 kg, 177.8 cm) jl7 11:26 Pain Scale: Adult jl7 12:30 Pain Scale: Adult nj1 ED Course: 10:55 Patient arrived in ED. im 11:04 Krunal Flores MD is Attending Physician. bia 11:28 Triage completed. jl7 11:28 Arm band placed on right wrist. Patient placed in waiting room, Patient notified of jl7 wait time. 11:41 XRAY Chest (1 view) In Process Unspecified. EDMS 12:11 Patient placed in an exam room, on a stretcher. ll1 12:22 Carito Leblanc, RN is Primary Nurse. nj1 12:28 Urine collected: clean catch specimen, clear. jl7 12:31 Patient has correct armband on for positive identification. Bed in low position. Call nj1 light in reach. Provided Education on: call light, fall precautions. 12:35 Inserted saline lock: 20 gauge in right antecubital area, using aseptic technique. kj2 Blood collected. 16:41 IV discontinued, intact, bleeding controlled, Pressure dressing applied. kj2 16:49 No provider procedures requiring assistance completed. kj2 Administered Medications: 12:29 Drug: NS 0.9% IV 1000 ml IV at 1 bolus Per protocol; 1000 mL bolus Route: IV; Rate: 1 nj1 bolus; Site: right antecubital; 13:30 Follow up: IV Status: Completed infusion kj2 12:35 Drug: Ondansetron IVP 4 mg IVP once; over 2 minutes Route: IVP; Site: right antecubital;nj1 14:15 Follow up: Response: No adverse reaction kj2 14:35 Drug: Insulin Glargine Sub-Q 30 units Sub-Q once {Co-Signature: nj1 (Carito Leblanc RN).} kj2 Route: Sub-Q; Site: left lower abdomen; 16:34 Follow up: Response: No adverse reaction kj2 14:36 Drug: Insulin Regular Human IVP 10 units IVP once {Co-Signature: nj1 (Carito Leblanc RN).} kj2 {Note: Dosage clarified with Dr Flores. Give 5 units insulin regular IVP instead of 10 due to BS of 258..} Route: IVP; Site: right antecubital; 16:34 Follow up: Response: No adverse reaction kj2 14:40 Drug: NS 0.9% IV 1000 ml IV at 1 bolus Per protocol; 1000 mL bolus Route: IV; Rate: 1 kj2 bolus; Site: right antecubital; 15:40 Follow up: IV Status: Completed infusion kj2 16:24 Drug: metFORMIN PO 500 mg PO once; with meal or snack Route: PO; kj2 16:49 Follow up: Response: No adverse reaction kj2 Medication: 16:39 VIS not applicable for this client. kj2 Point of Care Testing: Blood Glucose: 15:27 Blood Glucose: 195 mg/dL; kj2 Ranges: Outcome: 16:21 Discharge ordered by MD. amezquita 16:40 Discharged to home ambulatory, kj2 16:40 Condition: stable 16:40 Discharge instructions given to patient, Instructed on discharge instructions, follow up and referral plans. Demonstrated understanding of instructions, follow-up care, Prescriptions given X 2, 17:16 Patient left the ED. nj1 Signatures: Dispatcher [employer] EDKrunal Ford MD MD cha Leal, Jahala RN RN jl7 Asad Veliz RN RN ll1 Carito Leblanc RN RN nj1 Fifi Booker Krystal, RN RN kj2 Carito Leblanc RN nj1
--- NOTE | 2024-01-30 16:21 | EDPHYS ---
Physician Documentation [facility] Name: Renetta Ramsay Age: 58 yrs Sex: Female : 1965 Arrival Date: 01/30/2024 Time: 10:49 Bed 19 Private MD: ORAL Physician Krunal Flores HPI: 01/29 16:10 This 58 yrs old Female presents to ER via Ambulatory with complaints of High bia Blood Sugar. 16:10 The patient or guardian reports hyperglycemia. Onset: The symptoms/episode bia began/occurred yesterday. Associated signs and symptoms: Pertinent positives: nausea. Current symptoms: In the emergency department the patient's symptoms have improved, moderately. The patient has experienced similar episodes in the past, several times. Historical: - Allergies: 11:28 Amoxicillin; jl7 11:28 aripiprazole; jl7 11:28 PENICILLINS; jl7 11:28 pentazocine lactate; jl7 11:28 Talwin; jl7 - PMHx: 11:28 ADD/ADHD; Bipolar disorder; Chronic pain; Depression; Diabetes - NIDDM; DVT; Esophageal jl7 stricture; High Cholesterol; Hypertension; osteomyelitis; Pancreatitis; - Immunization history:: Adult Immunizations unknown. - Infectious Disease History:: Denies. - Social history:: Smoking status: Reported history of juuling and/or vaping. - Family history:: not pertinent. ROS: 16:10 Constitutional: Negative for fever, chills, and weight loss, Eyes: Negative for injury, bia pain, redness, and discharge, ENT: Negative for injury, pain, and discharge, Neck: Negative for injury, pain, and swelling, Cardiovascular: Negative for chest pain, palpitations, and edema, Respiratory: Negative for shortness of breath, cough, wheezing, and pleuritic chest pain, Back: Negative for injury and pain, : Negative for injury, bleeding, discharge, and swelling, MS/Extremity: Negative for injury and deformity, Skin: Negative for injury, rash, and discoloration, Neuro: Negative for headache, weakness, numbness, tingling, and seizure, Psych: Negative for depression, anxiety, suicide ideation, homicidal ideation, and hallucinations, Allergy/Immunology: Negative for hives, rash, and allergies, Hematologic/Lymphatic: Negative for swollen nodes, abnormal bleeding, and unusual bruising, 16:10 Abdomen/GI: Positive for nausea, Exam: 16:10 Constitutional: This is a well developed, well nourished patient who is awake, alert, bia and in no acute distress. Head/Face: Normocephalic, atraumatic. Eyes: Pupils equal round and reactive to light, extra-ocular motions intact. Lids and lashes normal. Conjunctiva and sclera are non-icteric and not injected. Cornea within normal limits. Periorbital areas with no swelling, redness, or edema. ENT: Nares patent. No nasal discharge, no septal abnormalities noted. Tympanic membranes are normal and external auditory canals are clear. Oropharynx with no redness, swelling, or masses, exudates, or evidence of obstruction, uvula midline. Mucous membranes moist. Neck: Trachea midline, no thyromegaly or masses palpated, and no cervical lymphadenopathy. Supple, full range of motion without nuchal rigidity, or vertebral point tenderness. No Meningismus. Chest/axilla: Normal chest wall appearance and motion. Nontender with no deformity. No lesions are appreciated. Cardiovascular: Regular rate and rhythm with a normal S1 and S2. No gallops, murmurs, or rubs. Normal PMI, no JVD. No pulse deficits. Respiratory: Lungs have equal breath sounds bilaterally, clear to auscultation and percussion. No rales, rhonchi or wheezes noted. No increased work of breathing, no retractions or nasal flaring. Abdomen/GI: Soft, non-tender, with normal bowel sounds. No distension or tympany. No guarding or rebound. No evidence of tenderness throughout. Back: No spinal tenderness. No costovertebral tenderness. Full range of motion. Female : Normal external genitalia. Skin: Warm, dry with normal turgor. Normal color with no rashes, no lesions, and no evidence of cellulitis. MS/ Extremity: Pulses equal, no cyanosis. Neurovascular intact. Full, normal range of motion. Neuro: Awake and alert, GCS 15, oriented to person, place, time, and situation. Cranial nerves II-XII grossly intact. Motor strength 5/5 in all extremities. Sensory grossly intact. Cerebellar exam normal. Normal gait. Psych: Awake, alert, with orientation to person, place and time. Behavior, mood, and affect are within normal limits. 16:10 ECG was reviewed by the Attending Physician. Vital Signs: 11:26 BP 154 / 81; Pulse 89; Resp 17; Temp 97.9; Pulse Ox 95% ; Weight 121.11 kg; Height 5 jl7 ft. 10 in. ; Pain 9/10; 12:30 BP 147 / 81; Pulse 62; Resp 12; Pulse Ox 97% on R/A; Pain 9/10; nj1 13:34 BP 168 / 76; Pulse 63; Resp 11; Pulse Ox 99% on R/A; nj1 14:47 BP 148 / 73; Pulse 59; Resp 18; Pulse Ox 96% on R/A; kj2 15:27 BP 165 / 69; Pulse 66; Resp 20; Pulse Ox 97% on R/A; kj2 16:50 BP 159 / 83; Pulse 65; Resp 18; Temp 98(O); Pulse Ox 99% on R/A; kj2 11:26 Body Mass Index 38.31 (121.11 kg, 177.8 cm) 7 11:26 Pain Scale: Adult jl7 12:30 Pain Scale: Adult nj1 MDM: 11:30 Patient medically screened. [facility] 16:15 Differential diagnosis: DKA, hyperglycemia, hyperthyroidism. Data reviewed: vital bia signs, nurses notes, lab test result(s), EKG. Consideration of Admission/Observation Escalation of care including admission/observation considered. I considered the following discharge prescriptions or medication management in the emergency department Medications were administered in the Emergency Department. See MAR. Independent interpretation of the following test(s) in the Emergency Department EKG: See my EKG interpretation above. Test considered but Not performed: CT: NO CT ABD PEL. Historians other than the Patient: PT WELL INFORMED. Care significantly affected by the following chronic conditions: Diabetes, Hypertension, Obesity, ADD/ADHD/ BIPOLAR/DVT. Counseling: I had a detailed discussion with the patient and/or guardian regarding the historical points, exam findings, and any diagnostic results supporting the discharge/admit diagnosis, lab results, radiology results, the need for outpatient follow up, for definitive care, a family practitioner. 01/29 11:05 Order name: Basic Metabolic Panel; Complete Time: 14:03 [facility] 01/29 11:05 Order name: CBC with Diff; Complete Time: 14:03 [facility] 01/29 11:05 Order name: LFT's; Complete Time: 14:03 [facility] 01/29 11:05 Order name: Magnesium; Complete Time: 14:03 [facility] 01/29 11:05 Order name: NT PRO-BNP; Complete Time: 14:03 [facility] 01/29 11:05 Order name: Troponin HS; Complete Time: 14:03 [facility] 01/29 11:05 Order name: Urinalysis w/ reflexes; Complete Time: 14:03 [facility] 01/29 11:38 Order name: Glucose, Ancillary Testing; Complete Time: 14:03 [facility] 01/29 14:33 Order name: Glucose, Ancillary Testing; Complete Time: 16:04 [facility] 01/29 15:36 Order name: Glucose, Ancillary Testing; Complete Time: 16:04 [facility] 01/29 11:05 Order name: XRAY Chest (1 view); Complete Time: 14:03 [facility] 01/29 11:05 Order name: EKG; Complete Time: 11:05 [facility] 01/29 11:05 Order name: Cardiac monitoring; Complete Time: 12:29 [facility] 01/29 11:05 Order name: EKG - Nurse/Tech; Complete Time: 13:03 [facility] 01/29 11:05 Order name: IV Saline Lock; Complete Time: 12:29 [facility] 01/29 11:05 Order name: Labs collected and sent; Complete Time: 12:29 [facility] 01/29 11:05 Order name: O2 Per Protocol; Complete Time: 12:29 [facility] 01/29 11:05 Order name: O2 Sat Monitoring; Complete Time: 12:29 [facility] EC:10 Rate is 64 beats/min. Rhythm is regular. QRS [place] is Normal. CO interval is normal. QRS bia interval is normal. QT interval is normal. No Q waves. T waves are Normal. No ST changes noted. Clinical impression: NSR w/ Non-specific ST/T Changes and No evidence of ischemia. Interpreted by me. Reviewed by me. Administered Medications: 12:29 Drug: NS 0.9% IV 1000 ml IV at 1 bolus Per protocol; 1000 mL bolus Route: IV; Rate: 1 nj1 bolus; Site: right antecubital; 13:30 Follow up: IV Status: Completed infusion kj2 12:35 Drug: Ondansetron IVP 4 mg IVP once; over 2 minutes Route: IVP; Site: right antecubital;nj1 14:15 Follow up: Response: No adverse reaction kj2 14:35 Drug: Insulin Glargine Sub-Q 30 units Sub-Q once {Co-Signature: nj1 (Carito Leblanc RN).} kj2 Route: Sub-Q; Site: left lower abdomen; 16:34 Follow up: Response: No adverse reaction kj2 14:36 Drug: Insulin Regular Human IVP 10 units IVP once {Co-Signature: nj1 (Carito Leblanc RN).} kj2 {Note: Dosage clarified with Dr Flores. Give 5 units insulin regular IVP instead of 10 due to BS of 258..} Route: IVP; Site: right antecubital; 16:34 Follow up: Response: No adverse reaction kj2 14:40 Drug: NS 0.9% IV 1000 ml IV at 1 bolus Per protocol; 1000 mL bolus Route: IV; Rate: 1 kj2 bolus; Site: right antecubital; 15:40 Follow up: IV Status: Completed infusion kj2 16:24 Drug: metFORMIN PO 500 mg PO once; with meal or snack Route: PO; kj2 16:49 Follow up: Response: No adverse reaction kj2 Point of Care Testing: Blood Glucose: 15:27 Blood Glucose: 195 mg/dL; kj2 Ranges: Critical Glucose Levels:Adult <50 mg/dl or >400 mg/dl <40 mg/dl or >180 mg/dl Disposition Summary: 01/30/24 16:21 Discharge Ordered Notes: Location: Home bia Problem: new bia Symptoms: have improved bia Condition: Stable bia Diagnosis - Hyperglycemia, unspecified bia - Type 2 diabetes mellitus with hyperglycemia bia - Obesity due to excess calories bia - Heat exhaustion, unspecified bia - Nausea bia Followup: bia - With: Private Physician - When: 2 - 3 days - Reason: Recheck today's complaints, Continuance of care, Re-evaluation by your physician Discharge Instructions: - Discharge Summary Sheet bia - Hyperglycemia bia - Nausea, Adult bia - Diabetes Mellitus and Nutrition, Adult bia - Heat Exhaustion bia - Obesity, Adult, [id number] bia Forms: - Medication Reconciliation Form bia - Antibiotic Education bia - Prescription Opioid Use bia - Patient Portal Instructions bia - Leadership Thank You Letter [facility] Prescriptions: - ondansetron 4 mg Oral Tablet,disintegrating - take 1 tablet ORAL route every 8 hours for 5 days; 20 tablet; Refills: 0, bia Product Selection Permitted - Metformin 500 mg Oral tablet - take 1 tablet ORAL route every 12 hours for 21 days Then take 1 tablet with bia morning meals AND evening meals; 42 tablet; Refills: 0, Product Selection Permitted Signatures: Dispatcher [employer] Krunal Laguna MD MD cha Leal, Jahala RN RN jl7 Carito Leblanc RN RN nj1 Abena Cabral RN RN kj2 Carito Leblanc RN nj1
[2024-01-30 22:32] VITALS: BP 159/83; TEMP 98; O2SAT 99
--- NOTE | 2024-01-31 10:56 | EKG ---
Test Date: 2024-01-30 Test Time: 12:42:32 Roll Carrier: DAJA MEASUREMENT RESULTS: Intervals: Rate: 64 MI: 154 QRSD: 92 QT: 440 QTc: 453 Simms: P: 44 MI: 154 QRS: 91 T: 62 INTERPRETIVE STATEMENTS: Normal sinus rhythm Rightward axis Nonspecific T wave abnormality Abnormal ECG Compared to ECG 12/19/2023 16:37:48 Right-axis deviation now present T-wave abnormality now present Atrial fibrillation no longer present Electronically Signed On 01-31-24 10:54:34 CDT by Herber Ball
== END 2024-01-30 17:16 | disposition home or self-care (01) ==
LOC: ER 10:49
DX: E11.65 Type 2 diabetes mellitus with hyperglycemia (principal); T67.5XXA Heat exhaustion, unspecified, initial encounter; R11.0 Nausea; E66.09 Other obesity due to excess calories; Z68.38 Body mass index [BMI] 38.0-38.9, adult
CPT/HCPCS: 96361; 93005; 85025; 81001; 80048; 36415; 83735; 82947 ×3; 80076; 84484; 83880; 71045; 96375; 96372; 96374; 99284; J2405; J7030 ×2

== ENCOUNTER 2024-05-12 17:12 | Inpatient (IN) | payer OTHER ==
[2024-05-12] MEDS ORDERED: NA CHLORIDE 0.9% 1,000 ML ONE (17:32)
[2024-05-12 17:54] LABS: Absolute Eosinophils 0.1 K/uL (0-0.5); Absolute Lymphocytes (CBC) 2.3 K/uL (0.7-4.9); Absolute Monocytes 0.8 K/uL (0.1-1.3); Absolute Neutrophil 6.6 K/uL (1.8-8.0); Basophils % 0.5 % (0-1.3); Eosinophils % 1.4 % (0-4.4); Hematocrit 37.7 % (36.0-45.0); Hemoglobin 13.2 g/dL (12.0-15.0); Lymphocytes % 23.4 % (15.3-44.8); MCV 91.6 fL (80-100); MPV 8.4 fL (7.6-11.3); Monocytes % 7.7 % (3.3-12.3); Nucleated Red Blood Cells % 0.1 % (0-0); Platelets 209 thou/uL (152-406); RBC Red Blood Cell Count 4.12 M/uL (3.86-4.86); Red Cell Distribution Width 14.9 % (12.1-15.2)
[2024-05-12 17:59] LABS: PT Prothrombin Time 11.2 SECONDS (9.4-12.5); PTT, Activated Partial Thromb 27.2 SECONDS (24.3-36.9)
[2024-05-12 18:12] LABS: ALT/SGPT 23 U/L (13-56); AST/SGOT 14 U/L (15-37); Albumin 3.2 g/dL (3.4-5.0); Albumin/Globulin Ratio 0.9 (1.1-1.8); Alkaline Phosphatase 89 U/L (45-117); Anion Gap 11.9 mEq/L (5.0-15.0); BUN Blood Urea Nitrogen 33 mg/dL (7-18); Bicarbonate 28 mEq/L (21-32); Bilirubin Total 0.3 mg/dL (0.2-1.0); Globulin 3.6 g/dL (2.3-3.5); Glomerular Filtration Rate 38 ml/min (=/>90); Glucose Level 180 mg/dL (74-106); Magnesium 2.5 mg/dL (1.6-2.4); Potassium 3.9 mEq/L (3.5-5.1); Protein, Total 6.8 g/dL (6.4-8.2); Sodium Level 137 mEq/L (136-145); Troponin High Sensitivity 12.2 pg/mL (<58.9)
[2024-05-12 18:14] LABS: Bilirubin Direct < 0.2 mg/dL (0-0.2); Bilirubin Indirect, Calculated 0.1 mg/dL (0.2-0.8)
--- NOTE | 2024-05-12 18:50 | RAD REPORT ---
EXAMINATION: CT HEAD WITHOUT CONTRAST CT CERVICAL SPINE WITHOUT CONTRAST CLINICAL INDICATION: Head and neck injury status post fall. Head and neck pain TECHNIQUE: Axial CT images from the skull base to the vertex without intravenous contrast. Axial CT i mages through the cervical spine were obtained without intravenous contrast. Sagittal and coronal reformatted images were created from the data set. Coronal and sagittal reformatted images were creat ed from the data set. One or more of the following dose reduction techniques were used: Automated exposure control, adjustment of the mA and/or kV according to patient size, and/or iterative reconstr uction. Unless otherwise specified, incidental findings do not require dedicated imaging follow-up. [id number]. Comparison: 2016 and 2019 FINDINGS: Intracranial bleed not noted. Ventricles are normal in caliber. No significant hypodensity within the brain No extra-axial fluid collection. No fluid within the sinuses/mastoids No fracture or dislocation is seen involving the cervical spine. Post surgical changes C4 through C6. Spondylosis IMPRESSION: No acute intracranial abnormality noted A cervical fracture is not seen. If the patient continues to have symptoms to suggest acute FOOD MANAGEMENT AIDE/spinal pathology then MRI would be rec ommended
--- NOTE | 2024-05-12 18:52 | RAD REPORT ---
Procedure: Chest Single View HISTORY: Chest pain COMPARISON: 2019 FINDINGS: The lungs appear clear of acute infiltrate. Left upper lobe partially calcified nodule unchanged like ly benign No significant pleural effusion noted. The heart is mildly enlarged. IMPRESSION: No acute abnormality is displayed.
[2024-05-12] MEDS ORDERED: HYDROCODONE/APAP 7.5/325 MG TAB ONE (19:37)
--- NOTE | 2024-05-12 20:06 | ER ---
Nurse's Notes [facility] Name: Renetta Ramsay Age: 58 yrs Sex: Female : 1965 Arrival Date: 05/12/2024 Time: 17:12 Bed 14 Private MD: Diagnosis: Repeated falls;Syncope Near;Hypotension, unspecified;Acute kidney failure, unspecified Presentation: 05/12 17:20 Chief complaint: Patient states: So weak and shaky today she has fell three times ll1 today. B knee pain and head pain since. Coronavirus screen: Client denies travel out of the [place] in the last 14 days. At this time, the client does not indicate any symptoms associated with coronavirus-19. Ebola Screen: Patient denies travel to an Ebola-affected area in the 21 days before illness onset. Initial Sepsis Screen: Does the patient meet any 2 criteria? No. Patient's initial sepsis screen is negative. Does the patient have a suspected source of infection? No. Patient's initial sepsis screen is negative. Risk Assessment: Do you want to hurt yourself or someone else? Patient reports no desire to harm self or others. Onset of symptoms was May 12, 2024. 17:20 Method Of Arrival: Wheelchair ll1 17:20 Acuity: OLY 2 ll1 Triage Assessment: 17:22 General: Appears distressed, uncomfortable, Behavior is calm, cooperative, appropriate ll1 for age, Reports fatigue for. Neuro: Reports weakness near syncope and feeling very shaky. Historical: - Allergies: 17:22 Amoxicillin; ll1 17:22 aripiprazole; ll1 17:22 PENICILLINS; ll1 17:22 pentazocine lactate; ll1 17:22 Talwin; ll1 - PMHx: 17:22 Bipolar disorder; Hypertension; DVT; ADD/ADHD; Esophageal stricture; Depression; High ll1 Cholesterol; Chronic pain; Pancreatitis; osteomyelitis; Diabetes - NIDDM; - PSHx: 17:22 5th toe amputation on the right foot; 1st and 2nd toe amputation on left foot; ll1 Appendectomy; hysterectomy; - Immunization history:: Adult Immunizations up to date. - Infectious Disease History:: Denies. - Social history:: Smoking status: Reported history of juuling and/or vaping. Patient denies any tobacco usage or history of. Screenin:01 [facility] ED Fall Risk Assessment (Adult) History of falling in the last 3 months, cm10 including since admission Yes- fall prone (multiple falls) (3 pts) Confusion or Disorientation No (0 pts) Intoxicated or Sedated No (0 pts) Impaired Gait Yes (1 pt) Mobility Assist Device Used Yes (1 pt) Altered Elimination No (0 pt) Score/Fall Risk Level 3 or more points = High Risk Oriented to surroundings, Maintained a safe environment, Hourly rounding (assess needs \T\ fall precautionary measures) done. Abuse screen: Denies threats or abuse. Denies injuries from another. Nutritional screening: No deficits noted. Tuberculosis screening: No symptoms or risk factors identified. Assessment: 17:56 General: While doing orthostatic vitals, pt became unsteady while standing and her legs cm10 started jerking. Pt assisted back into bed. Provider made aware that orthostatic vitals could not be completed.. 18:01 General: Appears in no apparent distress. comfortable, Behavior is calm, cooperative. cm10 Pain: Denies pain. Neuro: No deficits noted. Level of Consciousness is awake, alert, obeys commands, Oriented to person, place, time, situation, Appropriate for age Gait is unsteady. Cardiovascular: No deficits noted. Patient's skin is warm and dry. Respiratory: No deficits noted. Airway is patent Respiratory effort is even, unlabored, Respiratory pattern is regular, symmetrical. Musculoskeletal: No deficits noted. Range of motion: intact in all extremities. 19:15 General: Appears in no apparent distress. comfortable, Behavior is calm, cooperative, rg5 appropriate for age. Neuro: Level of Consciousness is awake, alert, obeys commands, Oriented to person, place, time, Gait is unsteady. Cardiovascular: Patient's skin is warm and dry. Respiratory: Airway is patent Trachea midline Respiratory effort is even, unlabored, Respiratory pattern is regular, symmetrical. GI: Abdomen is round obese, Abd is soft and non tender. : No signs and/or symptoms were reported regarding the genitourinary system. EENT: No deficits noted. Derm: Skin is intact, Skin is dry, Skin is normal, Skin temperature is warm. Musculoskeletal: Circulation, motion, and sensation intact. Range of motion: intact in all extremities. 20:20 Reassessment: Patient and/or family updated on plan of care and expected duration. Pain rg5 level reassessed. Patient is alert, oriented x 3, equal unlabored respirations, skin warm/dry/pink. 21:30 Reassessment: Patient and/or family updated on plan of care and expected duration. Pain rg5 level reassessed. Patient is alert, oriented x 3, equal unlabored respirations, skin warm/dry/pink. 23:40 Reassessment: Patient and/or family updated on plan of care and expected duration. Pain rg5 level reassessed. Patient is alert, oriented x 3, equal unlabored respirations, skin warm/dry/pink. Patient states symptoms have improved. Vital Signs: 17:20 BP 80 / 61; Pulse 79; Resp 17; Temp 97.6; Pulse Ox 98% ; Weight 113.4 kg; Height 5 ft. ll1 11 in. ; Pain 10/10; 17:31 BP 122 / 101; mb9 17:40 BP 94 / 67; Pulse 77; Resp 16; Pulse Ox 96% ; cm10 17:49 BP 100 / 60 Supine; Pulse 74; cm10 17:51 BP 109 / 63 Sitting; Pulse 79; cm10 19:20 BP 132 / 69; Pulse 67; Resp 17; Temp 98(O); Pulse Ox 99% on R/A; Pain 10/10; rg5 20:15 BP 132 / 69; Pulse 71; Resp 17; Pulse Ox 99% on R/A; Pain 5/10; rg5 21:30 BP 119 / 59; Pulse 63; Resp 17; Pulse Ox 94% on R/A; rg5 22:30 BP 115 / 52; Pulse 65; Resp 17; Pulse Ox 94% on R/A; Pain 0/10; rg5 23:40 BP 128 / 65; Pulse 64; Resp 17 S; Pulse Ox 97% on R/A; Pain 0/10; rg5 17:20 Body Mass Index 34.87 (113.40 kg, 180.34 cm) ll1 17:20 Pain Scale: Adult ll1 19:20 Pain Scale: Adult rg5 20:15 Pain Scale: Adult rg5 22:30 Pain Scale: Adult rg5 23:40 Pain Scale: Adult rg5 ED Course: 17:15 Patient arrived in ED. ra3 17:15 Isela Woodard PA-C is PHCP. sb4 17:15 Dougie Vincent MD is Attending Physician. sb4 17:22 Triage completed. ll1 17:22 Arm band placed on Patient placed in an exam room, on a stretcher. ll1 17:27 Charisse Reyes, RN is Primary Nurse. cm10 17:31 Missed attempt(s): 18 gauge in right forearm. Bleeding controlled, band aid applied, mb9 catheter tip intact. 17:45 Initial lab(s) drawn, by me, sent to lab. Inserted saline lock: 18 gauge in right cm10 forearm, using aseptic technique. Blood collected. Flushed with 10 mL NS. 17:48 Basic Metabolic Panel Sent. cm10 17:48 CBC with Diff Sent. cm10 17:48 Hepatic Function Sent. cm10 17:48 Magnesium Sent. cm10 17:48 Protime (+inr) Sent. cm10 17:48 Ptt, Activated Sent. cm10 17:48 Troponin High Sensitivity Sent. cm10 17:56 EKG done, by ED staff, reviewed by Isela Woodard PA-C. cm10 17:57 Chest Single View XRAY In Process Unspecified. EDMS 18:01 Patient has correct armband on for positive identification. Bed in low position. Call cm10 light in reach. Side rails up X2. Provided Education on: ER process and procedures.. Client placed on continuous cardiac and pulse oximetry monitoring. NIBP monitoring applied. conveyor monitor on. 18:21 CT Head C Spine In Process Unspecified. EDMS 18:26 Patient moved back from CT. cm10 19:16 Report given to MARK Cain. cm10 19:32 Nikolai Springer, MARK is Primary Nurse. rg5 20:05 Jose Luis Gallardo MD is Hospitalizing Provider. sb4 21:58 Resting quietly. Awaiting bed assignment. rg5 21:58 No provider procedures requiring assistance completed. rg5 21:58 Patient admitted, IV remains in place. intact, No redness/swelling at site. rg5 Administered Medications: 17:58 Drug: NS 0.9% IV 1000 ml IV at 1 bolus Per protocol; to be given as a bolus over 60 cm10 minutes Route: IV; Rate: 1 bolus; Site: right forearm; 19:16 Follow up: Response: No adverse reaction; IV Status: Completed infusion; IV Intake: cm10 1000ml 19:35 Drug: Hydrocodone-Acetaminophen PO (7.5 mg-325 mg) 1 tabs PO once Route: PO; rg5 20:56 Follow up: Response: No adverse reaction; Pain is decreased rg5 Medication: 19:05 VIS not applicable for this client. rg5 Intake: 19:16 IV: 1000ml; Total: 1000ml. cm10 Outcome: 20:06 Decision to Hospitalize by Provider. sb4 05/13 00:36 Admitted to Med/surg accompanied by tech, via stretcher, rg5 Condition: stable Instructed on the need for admit, 00:36 Patient left the ED. rg5 Signatures: Dispatcher [employer] EDMS Asad Veliz, RN RN ll1 Isela Woodard, PA-C PA-C sb4 Syl Solano, RN RN mb9 Charisse Reyes RN RN cm10 Ana Villa ra3 Nikolai Springer, RN RN rg5
--- NOTE | 2024-05-12 20:06 | EDPHYS ---
Physician Documentation [facility] Name: Renetta Ramsay Age: 58 yrs Sex: Female : 1965 Arrival Date: 05/12/2024 Time: 17:12 Bed 14 Private MD: ED Physician Dougie Vincent HPI: 05/12 20:30 This 58 yrs old Female presents to ER via Wheelchair with complaints of High Blood sb4 Sugar - Shakiness, Fall Injury. 20:30 Patient states that she woke up this morning feeling weaker than usual. She got up to sb4 start her day when she started having an episode of "shaking "witnessed by her mother and then fell to the ground. She was able to get back up with assistance and remember the occurrence and went to lie down. Later in the day, she was walking around and had the same thing occur. Her mother brought her to the ER shortly after. While she was checking in, she had a third episode of this. She is complaining of pain in her knee and neck. She denies any loss of consciousness. She denies any seizure history. States that her blood sugar was elevated this morning in the 400s and took her insulin as scheduled. She denies any changes in medications. Historical: - Allergies: 17:22 Amoxicillin; ll1 17:22 aripiprazole; ll1 17:22 PENICILLINS; ll1 17:22 pentazocine lactate; ll1 17:22 Talwin; ll1 - PMHx: 17:22 Bipolar disorder; Hypertension; DVT; ADD/ADHD; Esophageal stricture; Depression; High ll1 Cholesterol; Chronic pain; Pancreatitis; osteomyelitis; Diabetes - NIDDM; - PSHx: 17:22 5th toe amputation on the right foot; 1st and 2nd toe amputation on left foot; ll1 Appendectomy; hysterectomy; - Immunization history:: Adult Immunizations up to date. - Infectious Disease History:: Denies. - Social history:: Smoking status: Reported history of juuling and/or vaping. Patient denies any tobacco usage or history of. ROS: 20:30 Constitutional: Negative for fever, chills, and weight loss, sb4 20:30 Neuro: Positive for tremor, weakness, 20:30 All other systems are negative, Exam: 20:30 Head/Face: Normocephalic, atraumatic. Eyes: Extra-ocular motions intact. Periorbital sb4 areas with no swelling, redness, or edema. ENT: Mucous membranes moist. Cardiovascular: Regular rate and rhythm with a normal S1 and S2. Respiratory: No increased work of breathing, no retractions or nasal flaring. Abdomen/GI: Soft, non-tender, no distension. Skin: Warm, dry with normal turgor. Normal color with no rashes, no lesions, and no evidence of cellulitis. MS/ Extremity: Pulses equal, no cyanosis. Neurovascular intact. Full, normal range of motion. Neuro: Awake and alert, GCS 15, oriented to person, place, time, and situation. Motor strength 5/5 in all extremities. Sensory grossly intact. 20:30 Constitutional: The patient appears in no acute distress, alert, awake, pale, Vital Signs: 17:20 BP 80 / 61; Pulse 79; Resp 17; Temp 97.6; Pulse Ox 98% ; Weight 113.4 kg; Height 5 ft. ll1 11 in. ; Pain 10/10; 17:31 BP 122 / 101; mb9 17:40 BP 94 / 67; Pulse 77; Resp 16; Pulse Ox 96% ; cm10 17:49 BP 100 / 60 Supine; Pulse 74; cm10 17:51 BP 109 / 63 Sitting; Pulse 79; cm10 19:20 BP 132 / 69; Pulse 67; Resp 17; Temp 98(O); Pulse Ox 99% on R/A; Pain 10/10; rg5 20:15 BP 132 / 69; Pulse 71; Resp 17; Pulse Ox 99% on R/A; Pain 5/10; rg5 21:30 BP 119 / 59; Pulse 63; Resp 17; Pulse Ox 94% on R/A; rg5 22:30 BP 115 / 52; Pulse 65; Resp 17; Pulse Ox 94% on R/A; Pain 0/10; rg5 23:40 BP 128 / 65; Pulse 64; Resp 17 S; Pulse Ox 97% on R/A; Pain 0/10; rg5 17:20 Body Mass Index 34.87 (113.40 kg, 180.34 cm) ll1 17:20 Pain Scale: Adult ll1 19:20 Pain Scale: Adult rg5 20:15 Pain Scale: Adult rg5 22:30 Pain Scale: Adult rg5 23:40 Pain Scale: Adult rg5 MDM: 17:20 Medical Screening Exam initiated sb4 20:30 Data reviewed: vital signs, nurses notes, lab test result(s), EKG, radiologic studies, sb4 and as a result, I will admit patient. Consideration of Admission/Observation Patient was admitted/placed on observation. Historians other than the Patient: Parent: mother. Care significantly affected by the following chronic conditions: Diabetes, Hypertension. Counseling: I had a detailed discussion with the patient and/or guardian regarding the historical points, exam findings, and any diagnostic results supporting the discharge/admit diagnosis, lab results, radiology results, the need for further work-up and treatment in the hospital. 05/12 17:33 Order name: Basic Metabolic Panel; Complete Time: 18:14 sb4 05/12 17:33 Order name: CBC with Diff; Complete Time: 18:01 sb4 05/12 17:33 Order name: Hepatic Function; Complete Time: 18:14 sb4 05/12 17:33 Order name: Magnesium; Complete Time: 18:14 sb4 05/12 17:33 Order name: Protime (+inr); Complete Time: 18:01 sb4 05/12 17:33 Order name: Ptt, Activated; Complete Time: 18:01 sb4 05/12 17:33 Order name: Troponin High Sensitivity; Complete Time: 18:14 sb4 05/12 17:33 Order name: UDS sb4 05/12 17:33 Order name: Urinalysis w/ reflexes sb4 05/12 22:01 Order name: Glucose, Ancillary Testing EDMS 05/12 23:22 Order name: Urinalysis w/ reflexes EDMS 05/12 23:24 Order name: Urinalysis w/ reflexes EDMS 05/12 23:24 Order name: CBC with Automated Diff EDMS 05/12 23:24 Order name: CBC with Automated Diff EDMS 05/12 23:24 Order name: Comprehensive Metabolic Panel EDMS 05/12 23:24 Order name: Comprehensive Metabolic Panel EDMS 05/12 23:24 Order name: Magnesium EDMS 05/12 23:24 Order name: Magnesium EDMS 05/12 23:24 Order name: Lipid Profile EDMS 05/12 23:24 Order name: Lipid Profile EDMS 05/12 17:33 Order name: CT Head C Spine; Complete Time: 18:55 sb4 05/12 17:33 Order name: Chest Single View XRAY; Complete Time: 18:55 sb4 05/12 23:24 Order name: Echo with Doppler EDMS 05/12 23:24 Order name: ERT ORTHOSTATIC V/S EDMS 05/12 23:24 Order name: ERT ORTHOSTATIC V/S EDMS 05/12 23:24 Order name: Carotid Artery Bilateral EDMS 05/12 17:33 Order name: EKG; Complete Time: 17:34 sb4 05/12 23:24 Order name: Physical Therapy Consult EDMS 05/12 17:33 Order name: Cardiac monitoring; Complete Time: 17:48 sb4 05/12 17:33 Order name: EKG - Nurse/Tech; Complete Time: 17:48 sb4 05/12 17:33 Order name: IV Saline Lock; Complete Time: 17:48 sb4 05/12 17:33 Order name: Labs collected and sent; Complete Time: 17:48 sb4 05/12 17:33 Order name: NPO; Complete Time: 17:48 sb4 05/12 17:33 Order name: O2 Per Protocol; Complete Time: 17:48 sb4 05/12 17:33 Order name: O2 Sat Monitoring; Complete Time: 17:48 sb4 05/12 17:33 Order name: Orthostatics; Complete Time: 17:58 sb4 EC:51 Rate is 74 beats/min. Rhythm is regular, Normal Sinus Rhythm. Right axis deviation sb4 noted. DC interval is normal at 148 msec. QRS interval is normal at 102 msec. QT interval is normal. No Q waves. T waves are Normal. No ST changes noted. Clinical impression: No evidence of ischemia. Interpreted by me. Reviewed by me. Administered Medications: 17:58 Drug: NS 0.9% IV 1000 ml IV at 1 bolus Per protocol; to be given as a bolus over 60 cm10 minutes Route: IV; Rate: 1 bolus; Site: right forearm; 19:16 Follow up: Response: No adverse reaction; IV Status: Completed infusion; IV Intake: cm10 1000ml 19:35 Drug: Hydrocodone-Acetaminophen PO (7.5 mg-325 mg) 1 tabs PO once Route: PO; rg5 20:56 Follow up: Response: No adverse reaction; Pain is decreased rg5 Disposition Summary: 05/12/24 20:06 Hospitalization Ordered Notes: Hospitalization Status: Inpatient Admission sb4 Provider: Jose Luis Gallardo sb4 Location: Telemetry/[facility]Sur (Inpatient) sb4 Condition: Stable sb4 Problem: new sb4 Symptoms: are unchanged sb4 Bed/Room Type: Standard sb4 Room Assignment: 412(05/12/24 23:38) cg Diagnosis - Repeated falls sb4 - Syncope Near sb4 - Hypotension, unspecified sb4 - Acute kidney failure, unspecified sb4 Forms: - Medication Reconciliation Form sb4 - SBAR form sb4 - Leadership Thank You Letter sb4 Signatures: Dispatcher [employer] EDEileen Gomes, RN RN cg Asad Veliz RN RN ll1 Isela Woodard PA-C PAChloeC sb4 Charisse Reyes, RN RN cm10 Nikolai Springer, RN RN rg5 Corrections: (The following items were deleted from the chart) 17:34 17:34 BASIC METABOLIC PANEL+C.LAB.BRZ ordered. EDMS EDMS 17:34 17:34 CBC+H.LAB.BRZ ordered. EDMS EDMS 17:34 17:34 HEPATIC FUNCTION+C.LAB.BRZ ordered. EDMS EDMS 17:34 17:34 MAGNESIUM+C.LAB.BRZ ordered. EDMS EDMS 17:34 17:34 PROTIME (+INR)+COAG.LAB.BRZ ordered. EDMS EDMS 17:34 17:34 PTT, ACTIVATED+COAG.LAB.BRZ ordered. EDMS EDMS 17:34 17:34 Troponin High Sensitivity+C.LAB.BRZ ordered. EDMS EDMS 17:34 17:34 URINE DRUG SCREEN+UC.LAB.BRZ ordered. EDMS EDMS 17:34 17:34 Urinalysis+U.LAB.BRZ ordered. EDMS EDMS 23:38 20:06 sb4 cg
--- NOTE | 2024-05-12 23:19 | P.HP ---
Certification for Inpatient Patient admitted to: Inpatient With expected LOS: <2 Midnights <Brianna Carmona - Last Filed: 05/14/24 06:10> Patient History Date of Service: 05/14/24 Reason for admission: Syncope History of Present Illness: 58-year-old female with past medical history Bipolar disorder; Hypertension; DVT; ADD/ADHD; Esophageal stricture; Depression; High Cholesterol; Chronic pain; Pancreatitis; osteomyelitis; Diabetes - NIDDM; presents to the hospital for weakness. Near syncopal episode. She reports a fall, reports shaking, she said occurred twice today. She reports associated knee and neck pain from fall. She denies history of seizure, she reports blood glucose was greater than 400 today, no reported chest pain, shortness of breath, dizziness, edema. Plan to admit for fall, near syncopal episode, orthostatic hypotension ER evaluation BP 80 / 61; Pulse 79; Resp 17; Temp 97.6; Pulse Ox 98% ; Weight 113.4 kg; Height 5 ft. ll1 11 in. ; Pain 10/10; EKG Rate is 74 beats/min. R hythm is regular, Normal Sinus Rhythm. Right axis deviation sb4 noted. SD interval is normal at 148 msec. QRS interval is normal at 102 msec. QT interval is normal. No Q waves. T waves are Normal. No ST changes noted. Clinical impression: No evidence of ischemia. ER evaluation hyperglycemia blood glucose 180, acute kidney injury, unknown baseline BUN 33 creatinine 1.59, estimated GFR 38, urine drug screen, UA pending. CT of the head No acute intracranial abnormality noted A cervical fracture is not seen. Post surgical changes C4 through C6. Spondylosis - Past Medical/Surgical History Diabetic: Yes -: Diabetes mellitus type 2insulin-dependent -: Hyperlipidemia -: Bipolar disorder, 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 She has 1 son. She does not work. She currently lives with her mother. - Family History Father -: Heart disease Mother -: Heart disease, Hypertension, Diabetes, Cancer Notes: breast cancer - Social History Alcohol use: No CD- Drugs: No Caffeine use: Yes <Brianna Carmona - Last Filed: 05/14/24 06:10> Date of Service: 05/12/24 <Jose Luis Gallardo - Last Filed: 05/14/24 07:57> Allergies meperidine [From Demerol] Allergy (Mild, Verified 12/19/23 22:54) Unknown pentazocine lactate [From Talwin] Allergy (Mild, Verified 12/19/23 22:54) Hallucinations amoxicillin Allergy (Verified 12/19/23 22:54) Nausea/Vomiting aripiprazole [From Abilify] Allergy (Verified 12/19/23 22:54) Dizzy Penicillins Allergy (Verified 12/19/23 22:54) Nausea/Vomiting Home Medications: Dicyclomine [Bentyl*] 10 mg PO TID 12/19/23 Divalproex Sodium 1,500 mg PO BEDTIME 12/19/23 Doxycycline Hyclate 100 mg PO BID 7 Days #14 tab 12/19/23 Dulaglutide [Trulicity] 0.5 ml SQ SEECOM 12/19/23 Ezetimibe [Zetia*] 10 mg PO DAILY 12/19/23 Famotidine 20 mg PO BEDTIME 12/19/23 Fluticasone Propion/Salmeterol [Advair 250-50 Diskus] 1 each IH BID 30 Days #60 aero 12/19/23 Gabapentin 300 mg PO TID 12/19/23 Glipizide [Glipizide Xl] 10 mg PO DAILY 12/19/23 Levothyroxine [Synthroid*] 25 mcg PO DAILY 12/19/23 Mometasone/Formoterol [Dulera 200 Mcg/5 Mcg Inhaler] 2 puff IH BID inhaler 12/19/23 OLANZapine [Olanzapine] 20 mg PO BEDTIME 12/19/23 Propranolol HCl 10 mg PO BID 12/19/23 Venlafaxine HCl 37.5 mg PO SEECOM 12/19/23 Venlafaxine HCl [Venlafaxine HCl ER] 75 mg PO DAILY 12/19/23 predniSONE [Deltasone*] 10 mg PO DAILY 10 Days #20 tab 12/19/23 Review of Systems 10-point ROS is otherwise unremarkable General: As per HPI <Brianna Carmona - Last Filed: 05/14/24 06:10> Physical Examination - Physical Exam General: Alert, In no apparent distress, Oriented x3, Obese HEENT: Atraumatic, Normocephalic Neck: Supple, 2+ carotid pulse no bruit Respiratory: Clear to auscultation bilaterally, Normal air movement Cardiovascular: Normal pulses, Regular rate/rhythm, Normal S1 S2 Capillary refill: <2 Seconds Gastrointestinal: Normal bowel sounds, Soft and benign - Studies Laboratory Data (last 24 hrs) 05/12/24 05/12/24 05/12/24 17:41 17:41 17:41 WBC 9.80 Hgb 13.2 Hct 37.7 Plt Count 209 PT 11.2 INR 1.00 APTT 27.2 Sodium 137 Potassium 3.9 BUN 33 H Creatinine 1.59 H Glucose 180 H Magnesium 2.5 H Total Bilirubin 0.3 AST 14 L ALT 23 Alkaline Phosphatase 89 <Brianna Carmona - Last Filed: 05/14/24 06:10> Assessment and Plan - Problems (Diagnosis) (1) Syncopal episodes Current Visit: Yes Status: Acute (2) Orthostatic hypotension Current Visit: Yes Status: Acute (3) Diabetes mellitus with hyperglycemia, with long-term current use of insulin Current Visit: Yes Status: Acute (4) DDD (degenerative disc disease), cervical Current Visit: Yes Status: Acute (5) Acute cystitis Current Visit: Yes Status: Acute Qualifiers: Hematuria presence: without hematuria Qualified Code(s): N30.00 - Acute cystitis without hematuria - Plan Assessment plan Admit for syncope, orthostatic hypotension Diabetes with hyperglycemia, Sliding scale, resume home long-acting insulin, Accu-Cheks Acute cystitis, IV antibiotics, Nephrology consult, Trend cultures Carotid Dopplers-o hemodynamically significant stenosis (greater than 50%) within the extracranial internal carotid arteries CT of the head. Normal Echo normal Discharge Plan: Home - Advance Directives Does patient have a Living Will: No Does patient have a Durable POA for Healthcare: No - Code Status/Comfort Care Code Status: Full Code Critical Care: No Time Spent Managing Pts Care (In Minutes): 55 <Brianna Carmona - Last Filed: 05/14/24 06:10> Date of Service: 05/12/24 Chart has been reviewed. Events of the last 24 hours have been noted. Case discussed with BRITTANY. I performed a substantial part of the MDM during this patient's care today. I personally made or approved the documented management plan and acknowledge its risk of complications. I agree with the findings and documentation provided in the BRITTANY's notes Near syncope and patient poorly compliant with diabetic meds. Resumed Lantus. Will send off prescription. Anticipate discharge in the morning. <Jose Luis Gallardo - Last Filed: 05/14/24 07:57>
[2024-05-13] MEDS: NA CHLORIDE 0.9% 1,000 ML IV SCH (02:01)
[2024-05-13] MEDS: CODEINE 30MG/APAP 300MG TAB PO PRN (02:28)
[2024-05-13 03:44] VITALS: BMI 34.8
[2024-05-13 06:11] LABS: Absolute Eosinophils 0.1 K/uL (0-0.5); Absolute Lymphocytes (CBC) 2.4 K/uL (0.7-4.9); Absolute Monocytes 0.9 K/uL (0.1-1.3); Absolute Neutrophil 4.9 K/uL (1.8-8.0); Basophils % 0.5 % (0-1.3); Eosinophils % 1.5 % (0-4.4); Hematocrit 35.9 % (36.0-45.0); Hemoglobin 12.4 g/dL (12.0-15.0); Lymphocytes % 28.4 % (15.3-44.8); MCH 31.9 pg (27.0-35.0); MCHC 34.4 g/dL (32.0-36.0); MCV 92.6 fL (80-100); MPV 8.3 fL (7.6-11.3); Monocytes % 10.9 % (3.3-12.3); Neutrophils % 58.7 % (41.7-73.7); Nucleated Red Blood Cells % 0.1 % (0-0); Platelets 166 thou/uL (152-406); RBC Red Blood Cell Count 3.87 M/uL (3.86-4.86); Red Cell Distribution Width 15.4 % (12.1-15.2)
[2024-05-13 06:17] LABS: ALT/SGPT 23 U/L (13-56); AST/SGOT 14 U/L (15-37); Albumin 2.8 g/dL (3.4-5.0); Albumin/Globulin Ratio 0.8 (1.1-1.8); Alkaline Phosphatase 76 U/L (45-117); Anion Gap 7.8 mEq/L (5.0-15.0); BUN Blood Urea Nitrogen 33 mg/dL (7-18); Bicarbonate 32 mEq/L (21-32); Bilirubin Total 0.3 mg/dL (0.2-1.0); Globulin 3.4 g/dL (2.3-3.5); Glomerular Filtration Rate 46 ml/min (=/>90); Glucose Level 170 mg/dL (74-106); HDL Cholesterol 35 mg/dL (40-60); Magnesium 2.7 mg/dL (1.6-2.4); Phosphorus 5.9 mg/dL (2.5-4.9); Potassium 4.8 mEq/L (3.5-5.1); Protein, Total 6.2 g/dL (6.4-8.2); Sodium Level 139 mEq/L (136-145)
[2024-05-13 06:29] LABS: LDL, Direct 45 mg/dL (100-129)
--- NOTE | 2024-05-13 07:46 | RAD REPORT ---
EXAMINATION: CAROTID DUPLEX ULTRASOUND CLINICAL INDICATION: syncope TECHNIQUE: Real-time grayscale, color flow and spectral Doppler sonographic images were obtained of t he extracranial carotid system using a linear transducer. COMPARISON: No prior exam. FINDINGS: RIGHT: Common carotid artery: 125 cm/s Internal carotid artery: 85 cm/s External carotid artery: 80 cm/s Right ICA/CCA ratio: 0.7 Plaque there is mild focal hard plaque right carotid bulb. Vertebral artery Antegrade LEFT: Common carotid artery: 131 cm/s Internal carotid artery: 99 cm/s External carotid artery: 105 cm/s Left ICA/CCA ratio: 0.8 Plaque None Vertebral artery Antegrade IMPRESSION: No hemodynamically significant stenosis (greater than 50%) within the extracranial internal carotid a rteries. Mild focal hard plaque right carotid bulb.
[2024-05-13 08:07] LABS: Specific Gravity > 1.030 (1.005-1.030); Sqamous Epithelial <5 /HPF (None Seen); Urine Bacteria <20 /HPF (<20); Urine Bilirubin NEGATIVE (Negative); Urine Blood Negative (Negative); Urine Clarity Turbid (Clear); Urine Color Light-Yellow (Yellow); Urine Culture Reflex Order REFLEXED; Urine Glucose 4+ (Over) (Negative); Urine Ketones TRACE (Negative); Urine Microscopic Reflex YN ORDER UMIC; Urine Mucus Slight /HPF (None Seen); Urine Nitrite NEGATIVE (Negative); Urine Protein NEGATIVE (Negative); Urine RBC None Seen /HPF (None Seen); Urine Urobilinogen Normal (Normal); Urine Yeast (Budding) Many /HPF (None Seen)
[2024-05-13 11:15] LABS: Barbiturates NEGATIVE (NEGATIVE); Benzodiazepines NEGATIVE (NEGATIVE); Cocaine NEGATIVE (NEGATIVE); METHAMPHETAM NEGATIVE (NEGATIVE); Methadone NEGATIVE (NEGATIVE); Opiates POSITIVE (NEGATIVE); Phencyclidine NEGATIVE (NEGATIVE); THC Cannibis NEGATIVE (NEGATIVE)
[2024-05-13] MEDS: glipiZIDE 5 MG TAB PO SCH (12:38)
--- NOTE | 2024-05-13 12:51 | EKG ---
Test Date: 2024-05-12 Test Time: 17:44:41 Paper Novelty Maker: CAROLYNN MEASUREMENT RESULTS: Intervals: Rate: 74 NV: 148 QRSD: 102 QT: 430 QTc: 477 [place]: P: 51 NV: 148 QRS: 106 T: 24 INTERPRETIVE STATEMENTS: Normal sinus rhythm Rightward axis Low voltage QRS Borderline ECG Compared to ECG 01/30/2024 12:42:32 Low QRS voltage now present T-wave abnormality no longer present Electronically Signed On 05-13-24 12:49:03 CDT by Herber Ball
--- NOTE | 2024-05-13 13:34 | ECHO ---
HEIGHT: 5 ft 11 in WEIGHT: 250 lb 0 oz DATE OF STUDY: 05/13/[address]: Brianna Carmona 2-DIMENSIONAL: YES M.MODE: YES DOPPLER: YES COLOR FLOW: YES TDS: NO PORTABLE: YES DEFINITY: NO BUBBLE STUDY: NO DIAGNOSIS: SYNCOPE CARDIAC HISTORY: CATHERIZATION: NO SURGERY: NO PROSTHETIC VALVE: NO PACEMAKER: NO MEASUREMENTS (cm) DIASTOLIC (NORMALS) SYSTOLIC (NORMALS) IVSd 1.3 (0.6-1.2) LA Diam 2.8 (1.9-4.0) LVEF 60-65% LVIDd 4.8 (3.5-5.7) LVIDs 3.4 (2.0-3.5) %FS 31% LVPWd 1.3 (0.6-1.2) Ao Diam 2.9 (2.0-3.7) 2 DIMENSIONAL ASSESSMENT: RIGHT ATRIUM: NORMAL LEFT ATRIUM: NORMAL RIGHT VENTRICLE: NORMAL LEFT VENTRICLE: NORMAL TRICUSPID VALVE: NORMAL MITRAL VALVE: NORMAL PULMONIC VALVE: NORMAL AORTIC VALVE: NORMAL PERICARDIAL EFFUSION: NONE AORTIC ROOT: NORMAL LEFT VENTRICULAR WALL MOTION: NORMAL. DOPPLER/COLOR FLOW: NORMAL. COMMENTS: 1. NORMAL LEFT VENTRICULAR SYSTOLIC FUNCTION. LEFT VENTRICULAR EJECTION FRACTION 60-65%. NORMAL WALL MOTION. 2. NORMAL DIASTOLIC FUNCTION. TECHNOLOGIST: RODRICK DELATORRE
[2024-05-13] MEDS: FLUCONAZOLE 200mg IVPB 200 MG/100 ML BAG IV SCH (14:08)
[2024-05-13] MEDS: VANCOMYCIN 2 GM in NA CHLORIDE 0.9% 500 ML IVPB SCH (14:59)
[2024-05-13] MEDS: INSULIN GLARGINE 100 UNIT/ML SQ ONE (14:59)
[2024-05-13] MEDS: INSULIN GLARGINE 100 UNIT/ML SQ SCH (22:11)
[2024-05-14] MEDS: FENOFIBRATE 160 MG TAB PO SCH (08:11)
[2024-05-14] MEDS: HYDRALAZINE HCL 20 MG/ML VIAL IV PRN (10:02)
--- NOTE | 2024-05-14 10:23 | P.PN ---
Date of Service: 05/13/24 Subjective Patient feeling better. Patient also with a skin infection on the backside along with UTI. The skin around the buttocks region looks like she has cutaneous candidiasis with a secondary bacterial infection. Will also send off Lantus prescriptions. Patient has been using 100 units of regular insulin 3 times a day. Have counseled her regarding this. Have told them to no longer use the regular insulin at such a high dose and to talk with her PCP going forward. Will start Lantus at 40 units daily for now. Echocardiogram and carotid Doppler were unremarkable. Syncope most likely related to blood sugars. Continue on telemetry monitoring patient. Patient also with a UTI and will continue with antibiotic therapy for that. Physical Examination - Vitals reviewed - Physical Exam General: Alert, In no apparent distress, Oriented x3, Obese Respiratory: Clear to auscultation bilaterally, Normal air movement Cardiovascular: Normal pulses, Regular rate/rhythm, Normal S1 S2 Gastrointestinal: Normal bowel sounds, Soft and benign Skin: buttocks area with cutaneous candidiasis Ext: no C/C/E Neuro: no focal deficits Assessment and Plan - Problems (Diagnosis) (1) Syncopal episodes Current Visit: Yes Status: Acute (2) Orthostatic hypotension Current Visit: Yes Status: Acute (3) Diabetes mellitus with hyperglycemia, with long-term current use of insulin Current Visit: Yes Status: Acute (4) DDD (degenerative disc disease), cervical Current Visit: Yes Status: Acute (5) Acute cystitis Current Visit: Yes Status: Acute Qualifiers: Hematuria presence: without hematuria Qualified Code(s): N30.00 - Acute cystitis without hematuria - Assessment/Plan Assessment/Plan 1. Syncope / near-syncope; concern for autonomic neuropathy as patient with poorly-controlled diabetic. Patient also with severely D hydrated and evidence of UTI. At this time will continue monitoring on telemetry for any arrhythmias. Echocardiogram and carotid Doppler were unremarkable. 2. UTI; continue with antibiotic therapy 3. Cutaneous candidiasis; continue with antifungal therapy 4. Diabetes; continue with long-acting insulin. Sliding scale insulin as well 5. GI and DVT prophylaxis Discharge Plan: Home - Advance Directives Does patient have a Living Will: No Does patient have a Durable POA for Healthcare: No
[2024-05-14] MEDS: INSULIN LISPRO 100 UNIT/1 ML SQ SCH (12:17)
--- NOTE | 2024-05-14 13:44 | P.PN ---
Subjective Date of Service: 05/14/24 Chief Complaint: Syncope Pt is resting comfortably in bed. She denies any chest pain or SOB. No fever or chills. Pt has not been taking her insulin appropriately at home. She takes 100u of lispro and regular insulin TID at home. Pt will need diabetes education before discharge. No other complaints. Review of Systems General: Unremarkable Eyes: Unremarkable ENT: Unremarkable Respiratory: Unremarkable Cardiovascular: Unremarkable Gastrointestinal: Unremarkable Genitourinary: Unremarkable Musculoskeletal: Unremarkable Integumentary: Unremarkable Neurological: Unremarkable Lymphatics: Unremarkable Physical Examination - Vital Signs Temperature: 98.3 F Blood Pressure: 165/72 Pulse: 68 Respirations: 14 Pulse Ox (%): 97 - Physical Exam General: Alert, In no apparent distress, Oriented x3, Obese HEENT: Atraumatic, Normocephalic, PERRLA Neck: Supple, 2+ carotid pulse no bruit, JVD not distended Respiratory: Clear to auscultation bilaterally, Normal air movement Cardiovascular: No edema, Normal pulses, Regular rate/rhythm, Normal S1 S2 Capillary refill: <2 Seconds Gastrointestinal: Normal bowel sounds, Soft and benign, Non-distended Musculoskeletal: No clubbing, No swelling, No contractures Integumentary: No rashes, No breakdown, No significant lesion Neurological: Normal gait, Normal speech, Normal strength at 5/5 x4 extr, Normal tone, Sensation intact Lymphatics: No axilla or inguinal lymphadenopathy Assessment And Plan - Plan Near syncope: Unknown etiology. Likely due to hypoglycemia or autonomic neuropathy. Will control blood sugar and do diabetes education before discharge. Echo shows EF 60 - 65% and Carotid ultrasound shows no significant stenosis. UTI: Will continue iv rocephin and f/u urine cx. DM II: continue accuchek, SSI, lantus 40u qhs, and ADA diet. MARIKA: Cr is 1.35. Will continue IVF, avoid nephrotoxins andmonitor renal function. Htn: Continue BP regimen with prn hydralazine. Cutaneous Candidiasis: Continue antifungal therapy. DVT ppx: SCD Code: full Dispo: Pending hospital course.
[2024-05-14] MEDS: VANCOMYCIN 1.75 GM in NA CHLORIDE 0.9% 500 ML IVPB SCH (14:10)
[2024-05-14] MEDS: AMLODIPINE 5 MG TAB PO SCH (14:10)
[2024-05-14 15:13] VITALS: O2SAT 96
[2024-05-15 06:48] LABS: Absolute Eosinophils 0.1 K/uL (0-0.5); Absolute Lymphocytes (CBC) 1.4 K/uL (0.7-4.9); Absolute Monocytes 0.5 K/uL (0.1-1.3); Absolute Neutrophil 2.9 K/uL (1.8-8.0); Basophils % 0.6 % (0-1.3); Eosinophils % 1.6 % (0-4.4); Hematocrit 36.7 % (36.0-45.0); Hemoglobin 12.8 g/dL (12.0-15.0); Lymphocytes % 29.1 % (15.3-44.8); MCH 32.1 pg (27.0-35.0); MCHC 34.8 g/dL (32.0-36.0); MCV 92.1 fL (80-100); MPV 8.6 fL (7.6-11.3); Monocytes % 10.3 % (3.3-12.3); Neutrophils % 58.4 % (41.7-73.7); Nucleated Red Blood Cells % 0.1 % (0-0); Platelets 139 thou/uL (152-406); RBC Red Blood Cell Count 3.98 M/uL (3.86-4.86); Red Cell Distribution Width 14.9 % (12.1-15.2)
[2024-05-15 07:17] LABS: Anion Gap 10.2 mEq/L (5.0-15.0); Potassium 5.2 mEq/L (3.5-5.1)
[2024-05-15] MEDS: AMLODIPINE 10 MG TAB PO SCH (08:33)
[2024-05-15] MEDS: SODIUM ZIRCONIUM CYCLOSILICATE 10 GM/PKT PO SCH (11:41)
--- NOTE | 2024-05-15 11:56 | P.DS ---
Admission Date: 05/12/24 Discharge Date: 05/15/24 Disposition: ROUTINE DISCHARGE Discharge Condition: GOOD Reason for Admission: Syncope Brief History of Present Illness: 58-year-old female with past medical history Bipolar disorder; Hypertension; DVT; ADD/ADHD; Esophageal stricture; Depression; High Cholesterol; Chronic pain; Pancreatitis; osteomyelitis; Diabetes - NIDDM; presents to the hospital for weakness. Near syncopal episode. She reports a fall, reports shaking, she said occurred twice today. She reports associated knee and neck pain from fall. She denies history of seizure, she reports blood glucose was greater than 400 today, no reported chest pain, shortness of breath, dizziness, edema. Plan to admit for fall, near syncopal episode, orthostatic hypotension ER evaluation BP 80 / 61; Pulse 79; Resp 17; Temp 97.6; Pulse Ox 98% ; Weight 113.4 kg; Height 5 ft. ll1 11 in. ; Pain 10/10; EKG Rate is 74 beats/min. Rhythm is regular, Normal Sinus Rhythm. Right axis deviation sb4 noted. NC interval is normal at 148 msec. QRS interval is normal at 102 msec. QT interval is normal. No Q waves. T waves are Normal. No ST changes noted. Clinical impression: No evidence of ischemia. ER evaluation hyperglycemia blood glucose 180, acute kidney injury, unknown baseline BUN 33 creatinine 1.59, estimated GFR 38, urine drug screen, UA pending. CT of the head No acute intracranial abnormality noted A cervical fracture is not seen. Post surgical changes C4 through C6. Spondylosis Hospital Course: Pt is a 58yo female with past medical history Bipolar disorder, Hypertension, DVT, ADD/ADHD, Esophageal stricture, Depression, High Cholesterol, Chronic pain, Pancreatitis, osteomyelitis, and Diabetes - NIDDM who presented in the hospital for weakness and near syncope. She fell twice at home and her family members brought her to the ER for evaluation. On admission, pt reported taking regular insulin 100u TID and lispro at home. Her blood sugar was uncontrolled with A1c of 10.6. EKG showed normal sinus rhythm. Lab studies showed BUN 33, creatinine 1.59, estimated GFR 38, urine drug screen, UA pending. CT of the head was negative for acute intracranial abnormality. CT cervical spine showed no cervical fracture, but it showed post surgical changes of C4 through C6 and Spondylosis. We admitted for near syncope due to hypoglycemia or autonomic neuropathy. We optimized diabetes regimen. Echo showed EF 60 - 65% and Carotid ultrasound showed no significant stenosis. We gave pt iv vanc for UTI. Urine cx grew Staph aureus and strep Agalactiae group B. We discharged her with bactrim. MARIKA resolved with IVF and we treated hypokalemia with lokelma. Pt also received fluconazole for cutaneous candidiasis. Pt was advised tolose weight and take insulin as prescribed. She was in NAD prior to discharge. Vital Signs/Physical Exam: Temp Pulse Resp BP Pulse Ox 98.1 F 62 14 147/75 H 91 05/15/24 08:00 05/15/24 08:33 05/15/24 08:00 05/15/24 08:33 05/15/24 08:00 Laboratory Data at Discharge: WBC 5.00 thou/uL (4.3-10.9) 05/15/24 06:17 Hgb 12.8 g/dL (12.0-15.0) 05/15/24 06:17 Hct 36.7 % (36.0-45.0) 05/15/24 06:17 Plt Count 139 thou/uL (152-406) L 05/15/24 06:17 PT 11.2 SECONDS (9.4-12.5) 05/12/24 17:41 INR 1.00 05/12/24 17:41 APTT 27.2 SECONDS (24.3-36.9) 05/12/24 17:41 Sodium 137 mEq/L (136-145) 05/15/24 06:17 Potassium 5.2 mEq/L (3.5-5.1) H 05/15/24 06:17 BUN 17 mg/dL (7-18) 05/15/24 06:17 Creatinine 0.89 mg/dL (0.55-1.02) 05/15/24 06:17 Glucose 223 mg/dL (74-106) H 05/15/24 06:17 Phosphorus 5.9 mg/dL (2.5-4.9) H 05/13/24 05:45 Magnesium 2.7 mg/dL (1.6-2.4) H 05/13/24 05:45 Total Bilirubin 0.3 mg/dL (0.2-1.0) 05/13/24 05:45 AST 14 U/L (15-37) L 05/13/24 05:45 ALT 23 U/L (13-56) 05/13/24 05:45 Alkaline Phosphatase 76 U/L (45-117) 05/13/24 05:45 Triglycerides 677 mg/dL (<150) H 05/13/24 05:45 Cholesterol 147 mg/dL (<200) 05/13/24 05:45 LDL Cholesterol Direct 45 mg/dL (100-129) L 05/13/24 05:45 HDL Cholesterol 35 mg/dL (40-60) L 05/13/24 05:45 Cholesterol/HDL Ratio 4.20 05/13/24 05:45 Home Medications: Dicyclomine [Bentyl*] 10 mg PO TID 12/19/23 Divalproex Sodium 1,500 mg PO BEDTIME 12/19/23 Doxycycline Hyclate 100 mg PO BID 7 Days #14 tab 12/19/23 Dulaglutide [Trulicity] 0.5 ml SQ SEECOM 12/19/23 Famotidine 20 mg PO BEDTIME 12/19/23 Fluticasone Propion/Salmeterol [Advair 250-50 Diskus] 1 each IH BID 30 Days #60 aero 12/19/23 Gabapentin 300 mg PO TID 12/19/23 Glipizide [Glipizide Xl] 10 mg PO DAILY 12/19/23 Levothyroxine [Synthroid*] 25 mcg PO DAILY 12/19/23 Mometasone/Formoterol [Dulera 200 Mcg/5 Mcg Inhaler] 2 puff IH BID inhaler 12/19/23 OLANZapine [Olanzapine] 20 mg PO BEDTIME 12/19/23 Propranolol HCl 10 mg PO BID 12/19/23 Venlafaxine HCl 37.5 mg PO SEECOM 12/19/23 Venlafaxine HCl [Venlafaxine HCl ER] 75 mg PO DAILY 12/19/23 predniSONE [Deltasone*] 10 mg PO DAILY 10 Days #20 tab 12/19/23 Fluconazole [Diflucan] 200 mg PO DAILY #7 tab 05/14/24 Insulin Glargine,Hum.rec.anlog [Lantus] 40 unit SQ BEDTIME #3 syr 05/14/24 Fenofibrate [Tricor*] 160 mg PO DAILY 30 Days #30 tab 05/15/24 Insulin Glargine,Hum.rec.anlog [Lantus Solostar] 36 unit SQ BEDTIME 30 Days #15 ml 24 Insulin Lispro [Humalog Kwikpen U-100] 12 unit SQ TID 30 Days #15 ml 05/15/24 Smz./Tmp. [Bactrim Ds 800 MG/160 MG] 1 tab PO BID 5 Days #10 tab 05/15/24 New Medications: Smz./Tmp. [Bactrim Ds 800 MG/160 MG] 1 tab PO BID 5 Days #10 tab Fluconazole [Diflucan] 200 mg PO DAILY #7 tab Insulin Lispro [Humalog Kwikpen U-100] 12 unit SQ TID 30 Days #15 ml Insulin Glargine,Hum.rec.anlog [Lantus] 40 unit SQ BEDTIME #3 syr Insulin Glargine,Hum.rec.anlog [Lantus Solostar] 36 unit SQ BEDTIME 30 Days #15 ml Fenofibrate [Tricor*] 160 mg PO DAILY 30 Days #30 tab Physician Discharge Instructions: [facility] Call Katherine Woodard at [phone] for questions or concerns after discharge. Expect a call within 1-2 business days of discharge. Alternate: Leilani Flowers at [phone] Diet: AHA Activity: Ad shikha Followup: Shama Dickerson MD [Primary Care Provider] - 1-2 Weeks
[2024-05-15] MEDS: SMZ./TMP. 800/160 MG TABLET PO SCH (12:06)
[2024-05-15 12:18] VITALS: BP 145/67; TEMP 98.2
[2024-05-15] MEDS ORDERED: SMZ./TMP. 800/160 MG TABLET PO SCH (17:00)
== END 2024-05-15 13:25 | disposition home or self-care (01) | DRG 74 ==
LOC: ER 17:12 → ERHOLD 23:17 → 4TH 05-13 00:07
PROVIDERS: ADMIT Hospitalist; ATTEND Hospitalist
DX: E11.43 Type 2 diabetes mellitus with diabetic autonomic (poly)neuropathy (principal); B37.41 Candidal cystitis and urethritis; N17.9 Acute kidney failure, unspecified; E11.65 Type 2 diabetes mellitus with hyperglycemia; I95.1 Orthostatic hypotension; I10 Essential (primary) hypertension; E87.6 Hypokalemia; E78.00 Pure hypercholesterolemia, unspecified; F31.9 Bipolar disorder, unspecified; E66.9 Obesity, unspecified; M50.30 Other cervical disc degeneration, unspecified cervical region; B95.61 Methicillin susceptible Staphylococcus aureus infection as the cause of diseases classified elsewhere; B95.1 Streptococcus, group B, as the cause of diseases classified elsewhere; R29.6 Repeated falls; Z88.0 Allergy status to penicillin; Z79.4 Long term (current) use of insulin; Z88.1 Allergy status to other antibiotic agents; Z91.81 History of falling; Z91.51 Personal history of suicidal behavior; Z68.34 Body mass index [BMI] 34.0-34.9, adult; Z79.52 Long term (current) use of systemic steroids; Z79.84 Long term (current) use of oral hypoglycemic drugs; Z90.49 Acquired absence of other specified parts of digestive tract; Z79.890 Hormone replacement therapy; Z89.422 Acquired absence of other left toe(s); Z89.421 Acquired absence of other right toe(s); Z79.899 Other long term (current) drug therapy; Z90.710 Acquired absence of both cervix and uterus; Z86.718 Personal history of other venous thrombosis and embolism
CPT/HCPCS: 36415; 70450; 71045; 72125; 80048; 80053; 80061; 80076; 80307; 81001; 82947; 83036; 83735; 84100; 84484; 85025; 85610; 85730; 87077; 87086; 87088; 87186; 93005; 93306; 93880; 96360; 97112; 97116; 97161; 97530; 99285; J0360; J1450; J7030; J7040

== ENCOUNTER 2024-05-19 11:23 | Inpatient (IN) | payer OTHER ==
[2024-05-19] MEDS ORDERED: NA CHLORIDE 0.9% 1,000 ML ONE (12:15)
[2024-05-19 12:25] LABS: Absolute Basophils 0.1 K/uL (0-0.5); Absolute Lymphocytes (CBC) 1.1 K/uL (0.7-4.9); Absolute Monocytes 0.7 K/uL (0.1-1.3); Absolute Neutrophil 10.8 K/uL (1.8-8.0); Basophils % 0.5 % (0-1.3); Eosinophils % 0.3 % (0-4.4); Hematocrit 34.9 % (36.0-45.0); Hemoglobin 11.5 g/dL (12.0-15.0); Lymphocytes % 8.7 % (15.3-44.8); MCH 31.4 pg (27.0-35.0); MCHC 32.9 g/dL (32.0-36.0); MCV 95.4 fL (80-100); MPV 8.8 fL (7.6-11.3); Monocytes % 5.4 % (3.3-12.3); Neutrophils % 85.1 % (41.7-73.7); Platelets 169 thou/uL (152-406); RBC Red Blood Cell Count 3.66 M/uL (3.86-4.86); Red Cell Distribution Width 15.1 % (12.1-15.2)
[2024-05-19 12:31] LABS: PT Prothrombin Time 11.7 SECONDS (9.4-12.5); PTT, Activated Partial Thromb 25.4 SECONDS (24.3-36.9); Protime INR 1.05
[2024-05-19 12:44] LABS: Albumin/Globulin Ratio 0.9 (1.1-1.8); Anion Gap 9.7 mEq/L (5.0-15.0); Bilirubin Total 0.3 mg/dL (0.2-1.0); Globulin 3.4 g/dL (2.3-3.5); Potassium 4.7 mEq/L (3.5-5.1); Protein, Total 6.4 g/dL (6.4-8.2); Troponin High Sensitivity 17.2 pg/mL (<58.9)
[2024-05-19 13:01] LABS: Platelet Estimate ADEQ; White Blood Cell Scan OK (OK)
--- NOTE | 2024-05-19 13:01 | RAD REPORT ---
Procedure: Chest Single View HISTORY: Chest pain COMPARISON: May 12, 2024 FINDINGS: Partially calcified nodule left upper lobe unchanged. Right lung appears clear of acute infiltrate. No significant pleural effusion noted. The heart is mildly enlarged.
[2024-05-19 13:02] LABS: Blood Morphology Comment NOT SEEN (NOT SEEN)
--- NOTE | 2024-05-19 13:35 | ER ---
Nurse's Notes [facility] Name: Renetta Ramsay Age: 58 yrs Sex: Female : 1965 Arrival Date: 05/19/2024 Time: 11:23 Bed 20 Private MD: Diagnosis: Dehydration, acute kidney injury, prerenal azotemia Presentation: 05/19 11:30 Chief complaint: EMS states: CALLED FOR DISORIENTATION AND LIFT ASSIST BECAUSE PT HAD A db FALL. UPON ARRIVAL PT WAS ALTERED, AOX2, "LETHARGIC" BP 62/42 AND BECAME UNRESPONSIVE SHORTLY AFTER EMS ASSIST TO CHAIR. PATIENT BG 325 DID NOT RECEIVE INSULIN TODAY. GIVEN 1L NS. Coronavirus screen: Client denies travel out of the [place] in the last 14 days. At this time, the client does not indicate any symptoms associated with coronavirus-19. Ebola Screen: Patient negative for fever greater than or equal to 101.5 degrees Fahrenheit, and additional compatible Ebola Virus Disease symptoms Patient denies exposure to infectious person. Patient denies travel to an Ebola-affected area in the 21 days before illness onset. No symptoms or risks identified at this time. Initial Sepsis Screen: Does the patient meet any 2 criteria? No. Patient's initial sepsis screen is negative. Does the patient have a suspected source of infection? No. Patient's initial sepsis screen is negative. Risk Assessment: Do you want to hurt yourself or someone else? Patient reports no desire to harm self or others. Onset of symptoms was May 18, 2024. Care prior to arrival: Medication(s) given: Normal saline infusion, 1000 mL, IV initiated. 18 GA, 20 GA, in the left in the right antecubital area, wrist, Glucose check: 325 Oxygen administered. via nasal cannula. 11:30 Method Of Arrival: EMS: [facility] db 11:30 Acuity: OLY 2 db Triage Assessment: 11:33 General: Appears in no apparent distress. comfortable, Behavior is calm, cooperative, db appropriate for age. Pain: Complains of pain in right leg. Neuro: Level of Consciousness is obeys commands, confused, Oriented to person. Respiratory: Airway is patent Respiratory effort is even, unlabored, Respiratory pattern is regular, symmetrical. Historical: - Allergies: 11:33 Amoxicillin; db 11:33 PENICILLINS; db 11:33 pentazocine lactate; db 11:33 aripiprazole; db 11:33 Talwin; db - PMHx: 11:33 ADD/ADHD; Bipolar disorder; Chronic pain; Depression; DVT; Diabetes - NIDDM; Esophageal db stricture; High Cholesterol; Hypertension; osteomyelitis; Pancreatitis; - PSHx: 11:33 1st and 2nd toe amputation on left foot; 5th toe amputation on the right foot; db Appendectomy; hysterectomy; - Immunization history:: Adult Immunizations unknown. - Infectious Disease History:: Denies. - Social history:: Smoking status: Patient denies any tobacco usage or history of. unknown. Screenin:00 [place] [facility] Fall Risk Assessment (Adult) History of falling in the last 3 months, db including since admission Yes- single mechanical fall (1 pt) Confusion or Disorientation Yes (5 pts) Intoxicated or Sedated No (0 pts) Impaired Gait Yes (1 pt) Mobility Assist Device Used Yes (1 pt) Altered Elimination Yes (1 pt) Score/Fall Risk Level 3 or more points = High Risk Oriented to surroundings, Maintained a safe environment. Abuse screen: Denies threats or abuse. Denies injuries from another. Nutritional screening: No deficits noted. Nutritional screening: No deficits noted. Tuberculosis screening: No symptoms or risk factors identified. Assessment: 11:33 Reassessment: SEE TRIAGE FOR INITIAL ASSESSMENT. db 11:33 Reassessment: Patient appears in no apparent distress at this time. Patient and/or db family updated on plan of care and expected duration. Pain level reassessed. General: Appears in no apparent distress. comfortable. 13:02 Reassessment: Patient appears in no apparent distress at this time. Patient and/or db family updated on plan of care and expected duration. Pain level reassessed. 13:25 Reassessment: Patient appears in no apparent distress at this time. PATIENT CLOTHES AND db BRIEF CHANGED. NOTED STOOL THAT IS SOLID AND WATERY. CLEAN BRIEF PLACED. 14:16 Reassessment: Patient appears in no apparent distress at this time. Patient and/or db family updated on plan of care and expected duration. Pain level reassessed. General: Appears in no apparent distress. comfortable, Behavior is calm, cooperative. Neuro: Level of Consciousness is awake, alert. Respiratory: Airway is patent Respiratory effort is even, unlabored, Respiratory pattern is regular, symmetrical. 15:52 Reassessment: Patient appears in no apparent distress at this time. Patient and/or db family updated on plan of care and expected duration. Pain level reassessed. General: Appears in no apparent distress. comfortable. 15:53 Derm: Wound noted buttocks Rash noted that is RASH AND OPEN SKIN NOTED BETWEEN PATIENT db BUTTOCKS. 16:30 Reassessment: Patient appears in no apparent distress at this time. Patient and/or db family updated on plan of care and expected duration. Pain level reassessed. General: Appears in no apparent distress. comfortable. Vital Signs: 11:33 BP 93 / 49; Pulse 75; Resp 16; Temp 98.5; Pulse Ox 90% on R/A; db 11:38 BP 93 / 49; Pulse 75; Resp 16; Temp 98.5; Pulse Ox 90% ; db 11:39 Weight 118.5 kg; db 12:00 BP 86 / 50; Pulse 70; Resp 16; Pulse Ox 94% on 2 lpm NC; db 12:30 BP 107 / 52; Pulse 70; Resp 16; Pulse Ox 91% 2 lpm ; db 12:45 BP 82 / 66; Pulse 71; Resp 20; Pulse Ox 96% on 2 lpm NC; db 13:00 BP 112 / 62; Pulse 74; Resp 16; Pulse Ox 96% on 2 lpm NC; db 14:00 BP 107 / 45; Pulse 70; Resp 16; Pulse Ox 96% on 2 lpm NC; db 15:00 BP 94 / 55; Pulse 70; Resp 16; Pulse Ox 96% on 2 lpm NC; db 11:33 PLACED ON 2L NC db Vitals: 15:00 Cardiac Rhythm Assessment Regular Sinus rhythm. db ED Course: 11:28 Patient arrived in ED. iw 11:28 Debra Ivy, MARK is Primary Nurse. db 11:29 Ban Mulligan MD is Attending Physician. sp3 11:33 Triage completed. db 11:38 Arm band placed on Patient placed in an exam room. db 12:00 Maintain EMS IV. Dressing intact. Good blood return noted. Site clean \\T\\ dry. Gauge \\T\\ db site: 18 G RIGHT WRIST. 12:05 Maintain EMS IV. Dressing intact. Good blood return noted. Site clean \\T\\ dry. Gauge \\T\\ db site: 20 G LEFT AC. 12:16 Initial lab(s) drawn, by me, sent to lab. First set of blood cultures drawn by me. db 12:21 Radiology exam delayed due to IV insertion attempt and/or patient not having rs4 appropriate IV at this time. 12:27 Second set of blood cultures drawn by me. db 12:47 Chest Single View XRAY In Process Unspecified. EDMS 13:34 Jose Luis Gallardo MD is Hospitalizing Provider. sp3 13:45 Urine collected: Baker catheter specimen. Baker cath inserted, using sterile technique, db 16 Fr., by ED staff, balloon inflated, Patient tolerated well. 14:00 Patient has correct armband on for positive identification. Placed in gown. Bed in low db position. Call light in reach. Side rails up X2. Client placed on continuous cardiac and pulse oximetry monitoring. NIBP monitoring applied. medical coordinator pesticide use on. Pulse ox on. NIBP on. Lights dimmed. Warm blanket given. Pillow given. 15:45 No provider procedures requiring assistance completed. Patient admitted, IV remains in db place. 15:54 Provided Education on: ADMISSION. db Administered Medications: 12:27 Drug: NS 0.9% IV (30 ml/kg) 30 ml/kg IV at bolus once; Sepsis Protocol; to be given as db a bolus over 90 minutes Route: IV; Rate: bolus; Site: left antecubital; 13:35 Follow up: Response: No adverse reaction; IV Status: Completed infusion; IV Intake: db 3555ml Medication: 15:45 VIS not applicable for this client. db Intake: 13:35 IV: 3555ml; Total: 3555ml. db Outcome: 13:34 Decision to Hospitalize by Provider. sp3 15:45 Admitted to ER Hold. Please see [facility] for further documentation. db 15:45 Condition: stable 15:45 Instructed on the need for admit, 16:59 Patient left the ED. db Signatures: Dispatcher [employer] EDMS Jasmine Moses RN RN iw Patel, Setul, MD MD sp3 Debra Ivy RN RN Darshana Manriquez rs4 Corrections: (The following items were deleted from the chart) 15:46 15:00 BP 94 / 55; Pulse 70bpm; Resp 16bpm; Pulse Ox 96% RA; db db 15:54 13:25 Reassessment: Patient appears in no apparent distress at this time. PATIENT db CLOTHES AND BRIEF CHANGED. NOTED STOOL THAT IS SOLID AND WATERY. CLEAN BRIEF PLACED. db
--- NOTE | 2024-05-19 13:35 | EDPHYS ---
Physician Documentation [facility] Name: Renetta Ramsay Age: 58 yrs Sex: Female : 1965 Arrival Date: 05/19/2024 Time: 11:23 Bed 20 Private MD: ED Physician Ban Mulligan HPI: 05/19 12:26 This 58 yrs old Female presents to ER via EMS with complaints of Altered Mental Status sp3 and hypotension. 12:26 58-year-old female with a history of diabetes, ADHD, chronic pain, bipolar disease, sp3 obesity presents to the ED by EMS for chief complaint malaise, hypotension and altered mental status. Patient is a multiple visits to the ED for similar symptoms in the past. Patient blood pressure did improve after fluid bolus by EMS prior to arrival. History, physical and ROS limited secondary to patient not speaking much.. Historical: - Allergies: 11:33 Amoxicillin; db 11:33 PENICILLINS; db 11:33 pentazocine lactate; db 11:33 aripiprazole; db 11:33 Talwin; db - PMHx: 11:33 ADD/ADHD; Bipolar disorder; Chronic pain; Depression; DVT; Diabetes - NIDDM; Esophageal db stricture; High Cholesterol; Hypertension; osteomyelitis; Pancreatitis; - PSHx: 11:33 1st and 2nd toe amputation on left foot; 5th toe amputation on the right foot; db Appendectomy; hysterectomy; - Immunization history:: Adult Immunizations unknown. - Infectious Disease History:: Denies. - Social history:: Smoking status: Patient denies any tobacco usage or history of. unknown. ROS: 12:29 Unable to obtain ROS due to altered mental status, patient being uncooperative, sp3 Exam: 12:29 Constitutional: This is a well developed, well nourished patient who is awake, alert, sp3 and in no acute distress. Head/Face: Normocephalic, atraumatic. Neck: Trachea midline, no thyromegaly or masses palpated, and no cervical lymphadenopathy. Supple, full range of motion without nuchal rigidity, or vertebral point tenderness. No Meningismus. Chest/axilla: Normal chest wall appearance and motion. Nontender with no deformity. No lesions are appreciated. Cardiovascular: Regular rate and rhythm with a normal S1 and S2. No gallops, murmurs, or rubs. Normal PMI, no JVD. No pulse deficits. Respiratory: Lungs have equal breath sounds bilaterally, clear to auscultation and percussion. No rales, rhonchi or wheezes noted. No increased work of breathing, no retractions or nasal flaring. Abdomen/GI: Soft, non-tender, with normal bowel sounds. No distension or tympany. No guarding or rebound. No evidence of tenderness throughout. Back: No spinal tenderness. No costovertebral tenderness. Full range of motion. Skin: Warm, dry with normal turgor. Normal color with no rashes, no lesions, and no evidence of cellulitis. MS/ Extremity: Pulses equal, no cyanosis. Neurovascular intact. Full, normal range of motion. 12:29 Neuro: Grossly moving all extremities with no obvious focal deficits., 12:29 Unable to obtain exam due to patient being uncooperative, 13:19 ECG was reviewed by the Attending Physician. EKG demonstrates normal sinus rhythm at 73 sp3 bpm with normal intervals, normal QRS, normal axis, nonspecific diffuse ST/T changes without evidence of acute ischemia. Vital Signs: 11:33 BP 93 / 49; Pulse 75; Resp 16; Temp 98.5; Pulse Ox 90% on R/A; db 11:38 BP 93 / 49; Pulse 75; Resp 16; Temp 98.5; Pulse Ox 90% ; db 11:39 Weight 118.5 kg; db 12:00 BP 86 / 50; Pulse 70; Resp 16; Pulse Ox 94% on 2 lpm NC; db 12:30 BP 107 / 52; Pulse 70; Resp 16; Pulse Ox 91% 2 lpm ; db 12:45 BP 82 / 66; Pulse 71; Resp 20; Pulse Ox 96% on 2 lpm NC; db 13:00 BP 112 / 62; Pulse 74; Resp 16; Pulse Ox 96% on 2 lpm NC; db 14:00 BP 107 / 45; Pulse 70; Resp 16; Pulse Ox 96% on 2 lpm NC; db 15:00 BP 94 / 55; Pulse 70; Resp 16; Pulse Ox 96% on 2 lpm NC; db 11:33 PLACED ON 2L NC db MDM: 11:29 Medical Screening Exam initiated sp3 12:29 Data reviewed: vital signs, nurses notes, old medical records, lab test result(s), EKG. sp3 ED course: 58-year-old female with altered mental status and hypotension now somewhat resolved with fluid bolus prior to arrival. Blood pressure here 93/49 and patient is not hypertensive. Differential diagnosis includes dehydration, electrolyte abnormality, DKA, hypoglycemia, infection, UTI, pneumonia, among others. I am at highly suspicious of intracranial pathology at this time. Workup will include EKG, chest x-ray labs, urinalysis, IV fluids and general supportive care with further medication interventions as indicated. Disposition pending workup and patient course.. 13:20 ED course: Lactate of 2.3 with elevation of creatinine to 3.4 above baseline of 1.5. sp3 Probable prerenal in nature and we will continue IV fluids. Patient will be admitted to medicine service for further management.. 05/19 11:36 Order name: Blood Culture Adult (2) sp3 05/19 11:36 Order name: CBC with Diff; Complete Time: 13:18 sp3 05/19 11:36 Order name: CMP; Complete Time: 13:02 sp3 05/19 11:36 Order name: Lactate w/ 2H reflex if indic.; Complete Time: 13:02 sp3 05/19 11:36 Order name: Protime (+inr); Complete Time: 13:02 sp3 05/19 11:36 Order name: Ptt, Activated; Complete Time: 13:02 sp3 05/19 11:36 Order name: Urinalysis w/ reflexes; Complete Time: 14:11 sp3 05/19 11:36 Order name: Troponin High Sensitivity; Complete Time: 13:02 sp3 05/19 12:29 Order name: CBC Smear Scan; Complete Time: 13:18 EDMS 05/19 14:47 Order name: Ghost Lactate-NO COLLECT Timer; Complete Time: 14:55 EDMS 05/19 15:19 Order name: NT PRO-BNP EDMS 05/19 15:19 Order name: Troponin High Sensitivity EDMS 05/19 15:19 Order name: Lactate w/ 2H reflex if indic. EDMS 05/19 15:19 Order name: Urinalysis w/ reflexes EDMS 05/19 15:19 Order name: CBC with Automated Diff EDMS 05/19 15:19 Order name: CBC with Automated Diff EDMS 05/19 15:19 Order name: CBC with Automated Diff EDMS 05/19 15:19 Order name: CBC with Automated Diff EDMS 05/19 15:19 Order name: Magnesium EDMS 05/19 15:19 Order name: Magnesium EDMS 05/19 15:19 Order name: Magnesium EDMS 05/19 15:19 Order name: Magnesium EDMS 05/19 15:19 Order name: Renal Panel EDMS 05/19 15:19 Order name: Renal Panel EDMS 05/19 15:19 Order name: Renal Panel EDMS 05/19 15:19 Order name: Renal Panel EDMS 05/19 11:36 Order name: Chest Single View XRAY; Complete Time: 13:02 sp3 05/19 11:36 Order name: Accucheck; Complete Time: 14:19 sp3 05/19 11:36 Order name: Cardiac monitoring; Complete Time: 12:44 sp3 05/19 11:36 Order name: EKG - Nurse/Tech; Complete Time: 14:19 sp3 05/19 11:36 Order name: IV Saline Lock - Large Bore; Complete Time: 12:44 sp3 05/19 11:36 Order name: Labs collected and sent; Complete Time: 12:44 sp3 05/19 11:36 Order name: O2 Per Protocol; Complete Time: 12:44 sp3 05/19 11:36 Order name: O2 Sat Monitoring; Complete Time: 12:44 sp3 05/19 11:36 Order name: Vital Signs; Complete Time: 12:44 sp3 05/19 13:03 Order name: Cath: If no urine output by 1:10 PM; Complete Time: 14:17 sp3 Administered Medications: 12:27 Drug: NS 0.9% IV (30 ml/kg) 30 ml/kg IV at bolus once; Sepsis Protocol; to be given as db a bolus over 90 minutes Route: IV; Rate: bolus; Site: left antecubital; 13:35 Follow up: Response: No adverse reaction; IV Status: Completed infusion; IV Intake: db 3555ml Disposition Summary: 05/19/24 13:34 Hospitalization Ordered Notes: Hospitalization Status: Inpatient Admission sp3 Provider: Jose Luis Gallardo3 Condition: Stable sp3 Problem: an acute exacerbation sp3 Symptoms: have worsened sp3 Bed/Room Type: Standard sp3 Location: Intensive Care Unit(05/19/24 16:01) bd Room Assignment: 3-(05/19/24 16:01) bd Diagnosis - Dehydration, acute kidney injury, prerenal azotemia sp3 Forms: - Medication Reconciliation Form sp3 - SBAR form sp3 - Leadership Thank You Letter sp3 Signatures: Dispatcher [employer] EDMS [employer] soto Ban Allen MD MD sp3 Debra Ivy, RN RN db Corrections: (The following items were deleted from the chart) 11:37 11:37 BLOOD CULTURE*+BA.LAB.BRZ ordered. EDMS EDMS 11:37 11:37 CBC+H.LAB.BRZ ordered. EDMS EDMS 11:37 11:37 COMPREHENSIVE METABOLIC PANEL+C.LAB.BRZ ordered. EDMS EDMS 11:37 11:37 LACTATE+C.LAB.BRZ ordered. EDMS EDMS 11:37 11:37 PROTIME (+INR)+COAG.LAB.BRZ ordered. EDMS EDMS 11:37 11:37 PTT, ACTIVATED+COAG.LAB.BRZ ordered. EDMS EDMS 11:37 11:37 Urinalysis+U.LAB.BRZ ordered. EDMS EDMS 11:37 11:37 Troponin High Sensitivity+C.LAB.BRZ ordered. EDMS EDMS 11:37 11:37 Chest Single View+RAD.RAD.BRZ ordered. EDMS EDMS 15:21 13:34 sp3 bd 16:01 13:34 Telemetry/MedSurg (Inpatient) sp3 bd 16:01 15:21 215 bd bd
[2024-05-19 14:04] LABS: Specific Gravity 1.018 (1.005-1.030); Sqamous Epithelial <5 /HPF (None Seen); Urine Bacteria <20 /HPF (<20); Urine Bilirubin NEGATIVE (Negative); Urine Blood 1+ (Negative); Urine Clarity Clear (Clear); Urine Color Light-Yellow (Yellow); Urine Culture Reflex Order NOT NEEDED; Urine Glucose 4+ (Over) (Negative); Urine Ketones NEGATIVE (Negative); Urine Microscopic Reflex YN ORDER UMIC; Urine Nitrite NEGATIVE (Negative); Urine Protein NEGATIVE (Negative); Urine RBC <5 /HPF (None Seen); Urine Urobilinogen Normal (Normal); Urine WBC <5 /HPF (<5); Urine pH 5.5 (5.0-7.0)
[2024-05-19] MEDS ORDERED: GLUCAGON 1 MG/VIAL IM PRN (15:38)
--- NOTE | 2024-05-19 15:58 | P.HP ---
Certification for Inpatient Patient admitted to: Inpatient With expected LOS: >2 Midnights Patient will require the following post-hospital care: None Practitioner: I am a practitioner with admitting privileges, knowledge of patient current condition, hospital course, and medical plan of care. Services: Services provided to patient in accordance with Admission requirements found in Title 42 Section 412.3 of the Code of Federal Regulations Patient History Date of Service: 05/19/24 Allergies meperidine [From Demerol] Allergy (Mild, Verified 12/19/23 22:54) Unknown pentazocine lactate [From Talwin] Allergy (Mild, Verified 12/19/23 22:54) Hallucinations amoxicillin Allergy (Verified 12/19/23 22:54) Nausea/Vomiting aripiprazole [From Abilify] Allergy (Verified 12/19/23 22:54) Dizzy Penicillins Allergy (Verified 12/19/23 22:54) Nausea/Vomiting Home Medications: Dicyclomine [Bentyl*] 10 mg PO TID 12/19/23 Divalproex Sodium 1,500 mg PO BEDTIME 12/19/23 Doxycycline Hyclate 100 mg PO BID 7 Days #14 tab 12/19/23 Dulaglutide [Trulicity] 0.5 ml SQ SEECOM 12/19/23 Famotidine 20 mg PO BEDTIME 12/19/23 Fluticasone Propion/Salmeterol [Advair 250-50 Diskus] 1 each IH BID 30 Days #60 aero 12/19/23 Gabapentin 300 mg PO TID 12/19/23 Glipizide [Glipizide Xl] 10 mg PO DAILY 12/19/23 Levothyroxine [Synthroid*] 25 mcg PO DAILY 12/19/23 Mometasone/Formoterol [Dulera 200 Mcg/5 Mcg Inhaler] 2 puff IH BID inhaler 12/19/23 OLANZapine [Olanzapine] 20 mg PO BEDTIME 12/19/23 Propranolol HCl 10 mg PO BID 12/19/23 Venlafaxine HCl 37.5 mg PO SEECOM 12/19/23 Venlafaxine HCl [Venlafaxine HCl ER] 75 mg PO DAILY 12/19/23 predniSONE [Deltasone*] 10 mg PO DAILY 10 Days #20 tab 12/19/23 Fluconazole [Diflucan] 200 mg PO DAILY #7 tab 05/14/24 Fenofibrate 160 mg PO DAILY 60 Days #60 tab 05/15/24 Insulin Glargine,Hum.rec.anlog [Lantus Solostar] 36 unit SQ BEDTIME 30 Days #15 ml 05/15/24 Insulin Lispro [Insulin Lispro Kwikpen U-100] 12 unit SQ TID 30 Days #15 ml 05/15/24 Smz./Tmp. [Bactrim Ds 800 MG/160 MG] 1 tab PO BID 5 Days #10 tab 05/15/24 - Past Medical/Surgical History Diabetic: Yes -: Diabetes mellitus type 2insulin-dependent -: Hyperlipidemia -: Bipolar disorder, [facility]-Dr. 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 She has 1 son. She does not work. She currently lives with her mother. - Family History Father Medical History: Heart disease Mother Medical History: Heart disease, Hypertension, Diabetes, Cancer Notes: breast cancer - Social History Alcohol use: No CD- Drugs: No Caffeine use: Yes Physical Examination - Studies Laboratory Data (last 24 hrs) 05/19/24 05/19/24 05/19/24 12:16 12:16 12:16 WBC 12.70 H Hgb 11.5 L Hct 34.9 L Plt Count 169 PT 11.7 INR 1.05 APTT 25.4 Sodium 139 Potassium 4.7 BUN 40 H Creatinine 3.47 H Glucose 120 H Total Bilirubin 0.3 AST 94 H ALT 35 Alkaline Phosphatase 56 Assessment & Plan - Advance Directives Does patient have a Living Will: No Does patient have a Durable POA for Healthcare: No
[2024-05-19 16:30] LABS: Albumin 2.7 g/dL (3.4-5.0); Anion Gap 6.9 mEq/L (5.0-15.0); Phosphorus 5.9 mg/dL (2.5-4.9); Potassium 4.9 mEq/L (3.5-5.1); Troponin High Sensitivity 19.4 pg/mL (<58.9)
[2024-05-19] MEDS: INSULIN REGULAR (HUMAN) 100 UNIT/ML SQ SCH (16:30)
[2024-05-19] MEDS: CEFTRIAXONE 1,000 MG in NA CHLORIDE 0.9% 50 ML IVPB SCH (17:10)
[2024-05-19] MEDS: NA CHLORIDE 0.9% 1,000 ML IV SCH (17:11)
[2024-05-19 17:21] VITALS: BMI 38.5
[2024-05-19] MEDS: D10W 125 ML IV PRN (17:23)
[2024-05-19] MEDS: NA CHLORIDE 0.9% 500 ML ONE (17:26)
[2024-05-19] MEDS: NA CHLORIDE 0.9% 500 ML IV ONE (17:39)
[2024-05-19] MEDS: HEPARIN 5000 UNIT/ML 1 ML VIAL SQ SCH (18:01)
[2024-05-19] MEDS: ALBUMIN HUMAN 25% 100 ML IV ONE (18:29)
[2024-05-19] MEDS: HYDROCORTISONE SUC 100 MG INJ IV ONE (18:30)
[2024-05-19] MEDS: NOREPINEPHRINE 4 MG in D5W 250 ML IV SCH (18:46)
[2024-05-19] MEDS ORDERED: WATER FOR INJ,STERILE 10 ML IV SCH (19:00)
[2024-05-19] MEDS: NACHLORIDE 0.45% 1,000 ML with NA BICARB 8.4% 100 MEQ IV SCH (20:00)
[2024-05-19] MEDS: NACHLORIDE 0.45% 1,000 ML IV ONE (20:11)
[2024-05-19] MEDS: SODIUM BICARB 50 MEQ/50ML VIAL ONE (20:13)
[2024-05-19 20:15] LABS: Specific Gravity 1.022 (1.005-1.030); Sqamous Epithelial <5 /HPF (None Seen); Urine Bacteria None Seen /HPF (<20); Urine Bilirubin NEGATIVE (Negative); Urine Blood 3+ (Negative); Urine Clarity Extremely Turbid (Clear); Urine Color Light-Yellow (Yellow); Urine Crystals Unidentified Few /HPF (None Seen); Urine Culture Reflex Order NOT NEEDED; Urine Glucose 4+ (Over) (Negative); Urine Ketones NEGATIVE (Negative); Urine Microscopic Reflex YN ORDER UMIC; Urine Mucus Slight /HPF (None Seen); Urine Nitrite NEGATIVE (Negative); Urine Protein TRACE (Negative); Urine RBC <5 /HPF (None Seen); Urine Urobilinogen Normal (Normal); Urine WBC <5 /HPF (<5); Urine pH 5.5 (5.0-7.0)
[2024-05-19] MEDS: GABAPENTIN 300 MG CAP PO SCH (21:00)
[2024-05-19] MEDS: VANCOMYCIN 3 GM in NA CHLORIDE 0.9% 500 ML IVPB ONE (21:18)
[2024-05-19 23:04] LABS: Anion Gap 7.8 mEq/L (5.0-15.0); Potassium 5.8 mEq/L (3.5-5.1)
--- NOTE | 2024-05-20 05:02 | RAD REPORT ---
EXAM: XR Chest, 1 View CLINICAL HISTORY: The patient is 58 years old and is Female; PICC LINE PLACEMENT TECHNIQUE: Frontal view of the chest. COMPARISON: May 19, 2024. FINDINGS: Lungs: Unremarkable. No consolidation. Pleural space: Unremarkable. No pneumothorax. Heart: Unremarkable. Mediastinum: Unremarkable. Normal mediastinal contour. Bones/joints: No acute findings. Tubes, lines and devices: Left PICC with tip in the SVC. IMPRESSION: Left PICC with tip in the SVC. Electronically signed by: Feng Coyle MD 05/20/2024 03:40 AM CDT 8 Due to temporary technical issues with the PACS/Wanderio reporting system, reports are being brian d by the in-house radiologist without review as a courtesy to ensure prompt reporting the interpreting radiologist is fully responsible for the content of the report. Transcribed Date/Time: 05/20/2024 5:02 AM
[2024-05-20] MEDS: SODIUM BICARB 50 MEQ/50ML VIAL ONE ×2 (05:05→05:26)
[2024-05-20] MEDS: NACHLORIDE 0.45% 1,000 ML IV ONE (05:12)
[2024-05-20 05:49] LABS: Absolute Lymphocytes (CBC) 1.4 K/uL (0.7-4.9); Absolute Monocytes 0.5 K/uL (0.1-1.3); Absolute Neutrophil 6.3 K/uL (1.8-8.0); Basophils % 0.3 % (0-1.3); Eosinophils % 0.3 % (0-4.4); Hematocrit 30.1 % (36.0-45.0); Hemoglobin 9.9 g/dL (12.0-15.0); Lymphocytes % 17.2 % (15.3-44.8); MCH 31.7 pg (27.0-35.0); MCHC 32.9 g/dL (32.0-36.0); MCV 96.3 fL (80-100); MPV 8.5 fL (7.6-11.3); Monocytes % 6.4 % (3.3-12.3); Neutrophils % 75.8 % (41.7-73.7); Platelets 141 thou/uL (152-406); RBC Red Blood Cell Count 3.12 M/uL (3.86-4.86); Red Cell Distribution Width 14.9 % (12.1-15.2)
[2024-05-20] MEDS: LEVOTHYROXINE SOD 0.025 MG TAB PO SCH (06:27)
--- NOTE | 2024-05-20 07:49 | P.CNS ---
Date of Consult: 05/20/24 Reason for Consult: MARIKA/ CKD Requesting Physician: Jose Luis Gallardo Chief Complaint: AMS History of Present Illness: 12:26 This 58 yrs old Female presents to ER via EMS with complaints of Altered Mental Status sp3 and hypotension. 12:26 58-year-old female with a history of diabetes, ADHD, chronic pain, bipolar disease, sp3 obesity presents to the ED by EMS for chief complaint malaise, hypotension and altered mental status. Patient is a multiple visits to the ED for similar symptoms in the past. Patient blood pressure did improve after fluid bolus by EMS prior to arrival. History, physical and ROS limited secondary to patient not speaking much. Allergies meperidine [From Demerol] Allergy (Mild, Verified 12/19/23 22:54) Unknown pentazocine lactate [From Talwin] Allergy (Mild, Verified 12/19/23 22:54) Hallucinations amoxicillin Allergy (Verified 12/19/23 22:54) Nausea/Vomiting aripiprazole [From Abilify] Allergy (Verified 12/19/23 22:54) Dizzy Penicillins Allergy (Verified 12/19/23 22:54) Nausea/Vomiting Home medications list reviewed: Yes Home Medications: Divalproex Sodium 1,500 mg PO BEDTIME 12/19/23 Famotidine 20 mg PO BEDTIME 12/19/23 Gabapentin 300 mg PO TID 12/19/23 Levothyroxine [Synthroid*] 25 mcg PO DAILY 12/19/23 OLANZapine [Olanzapine] 20 mg PO BEDTIME 12/19/23 Propranolol HCl 10 mg PO BID 12/19/23 Venlafaxine HCl 37.5 mg PO SEECOM 12/19/23 Venlafaxine HCl [Venlafaxine HCl ER] 75 mg PO DAILY 12/19/23 Fenofibrate 160 mg PO DAILY 60 Days #60 tab 05/15/24 Smz./Tmp. 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 Grove -: Asthma/ Obstructive sleep apnea -: Appendectomy -: Hysterectomy -: Left knee surgery -: Carpal tunnel repair of the left wrist -: Colon resection due to diverticulitis -: cervical laminectomy infusion, lumbar herniated disc repair -: I/D of the left toe Psychosocial/ Personal History: She has never been . She has 1 son. She does not work. She currently lives with her mother. - Family History Father Medical History: Heart disease Mother Medical History: Heart disease, Hypertension, Diabetes, Cancer Notes: breast cancer - Social History Smoking Status: Current every day smoker Alcohol use: No CD- Drugs: No Caffeine use: Yes Place of Residence: Home Review of Systems 10-point ROS is otherwise unremarkable General: Weakness, Malaise Gastrointestinal: Other (Thirsty) Physical Examination Temp Pulse Resp BP Pulse Ox 97 F 71 17 129/62 98 05/20/24 04:00 05/20/24 06:30 05/20/24 06:30 05/20/24 06:30 05/20/24 06:30 General: In no apparent distress, Oriented x3, Cooperative HEENT: Atraumatic Neck: Supple Respiratory: Clear to auscultation bilaterally, Normal air movement Cardiovascular: No edema, Regular rate/rhythm Gastrointestinal: Normal bowel sounds, Soft and benign, Non-distended Musculoskeletal: No clubbing, No contractures Integumentary: No rashes, No cyanosis Neurological: Normal speech Laboratory Data (last 24 hrs) 05/19/24 05/19/24 05/19/24 12:16 12:16 12:16 WBC 12.70 H Hgb 11.5 L Hct 34.9 L Plt Count 169 PT 11.7 INR 1.05 APTT 25.4 Sodium 139 Potassium 4.7 BUN 40 H Creatinine 3.47 H Glucose 120 H Total Bilirubin 0.3 AST 94 H ALT 35 Alkaline Phosphatase 56 Imagings Data: EXAM: XR Chest, 1 View CLINICAL HISTORY: The patient is 58 years old and is Female; PICC LINE PLACEMENT TECHNIQUE: Frontal view of the chest. COMPARISON: May 19, 2024. FINDINGS: Lungs: Unremarkable. No consolidation. Pleural space: Unremarkable. No pneumothorax. Heart: Unremarkable. Mediastinum: Unremarkable. Normal mediastinal contour. Bones/joints: No acute findings. Tubes, lines and devices: Left PICC with tip in the SVC. IMPRESSION: Left PICC with tip in the SVC. Procedure: Chest Single View HISTORY: Chest pain COMPARISON: May 12, 2024 FINDINGS: Partially calcified nodule left upper lobe unchanged. Right lung appears clear of acute infiltrate. No significant pleural effusion noted. The heart is mildly enlarged. Conclusions/Impression: Stage II MARIKA in the setting of hypovolemia -No NSAIDs -Continue IVF Hyperkalemia -Low potassium diet -Lokelma prn DM II with Polyneuropathy -RISS -Restart Gabapentin Anemia in chronic illness -Monitor H&H Case reviewed with the hospitalist team Thank you kindly for the consultation
[2024-05-20] MEDS: CEFTRIAXONE 1,000 MG in NA CHLORIDE 0.9% 50 ML IVPB SCH (08:15)
[2024-05-20] MEDS: Mupirocin NASAL 2 APPL/1 GM TUBE NAS SCH (08:15)
[2024-05-20] MEDS ORDERED: VANCOMYCIN 1 GM in NA CHLORIDE 0.9% 250 ML IVPB SCH (09:00)
--- NOTE | 2024-05-20 09:01 | P.PN ---
Subjective Date of Service: 05/20/24 Chief Complaint: AMS Subjective: Improving (awake and alert. No c/o. Asked me to call her Mom and tell her to bring up her glasses) Review of Systems 10-point ROS is otherwise unremarkable General: Unremarkable Eyes: Unremarkable ENT: Unremarkable Respiratory: Unremarkable Cardiovascular: Unremarkable Gastrointestinal: Unremarkable Genitourinary: Unremarkable Musculoskeletal: Unremarkable Integumentary: Unremarkable Neurological: Unremarkable Lymphatics: Unremarkable Physical Examination - Vital Signs Temperature: 97 F Blood Pressure: 113/62 Pulse: 70 Respirations: 12 Pulse Ox (%): 96 - Physical Exam General: Alert, In no apparent distress, Oriented x3 HEENT: Atraumatic, Normocephalic Neck: Supple Respiratory: Clear to auscultation bilaterally Cardiovascular: Regular rate/rhythm Capillary refill: <2 Seconds Gastrointestinal: Normal bowel sounds, Soft and benign Musculoskeletal: No clubbing Integumentary: No rashes Neurological: Normal speech, Normal tone, Normal affect Lymphatics: No axilla or inguinal lymphadenopathy External genitalia: Deferred Rectal: Deferred - Studies Laboratory Data (last 24 hrs) 05/19/24 05/19/24 05/19/24 12:16 12:16 12:16 WBC 12.70 H Hgb 11.5 L Hct 34.9 L Plt Count 169 PT 11.7 INR 1.05 APTT 25.4 Sodium 139 Potassium 4.7 BUN 40 H Creatinine 3.47 H Glucose 120 H Total Bilirubin 0.3 AST 94 H ALT 35 Alkaline Phosphatase 56 Assessment And Plan - Plan Acute Severe Sepsis with Shock & AMS Recent UTI with PICC line placed for outpt abx Vancomycin Rocephin S/p NaHCO3 x 2 amps Levophed - dc'd this am, current BP 109/58 Pt had PICC placed 05/19/24 Stage II MARIKA -No NSAIDs -Continue IVF -Dr Rhodes consulted and following Hyperkalemia -Low potassium diet -[facility] pr[facility] -Electrolytes pending this am, last pm K 5.8 DM II glucose monitoring with SSI coverage Pt has been npo X ice chips - may change post swallow eval this am Anemia in chronic illness Monitor H&H
[2024-05-20 09:32] LABS: Anion Gap 7.9 mEq/L (5.0-15.0); Phosphorus 3.9 mg/dL (2.5-4.9); Potassium 4.9 mEq/L (3.5-5.1)
[2024-05-20 12:24] LABS: C.diff Antigen/Toxin Ag neg : Tox neg (NEG : NEG); CDIFF INTERNAL NEG CONTROL White Background (WHITE BKGD); STOOL CONSISTENCY Liquid/Semi-Solid
[2024-05-20 16:17] LABS: Albumin 2.6 g/dL (3.4-5.0); Anion Gap 5.6 mEq/L (5.0-15.0); Phosphorus 2.7 mg/dL (2.5-4.9); Potassium 4.6 mEq/L (3.5-5.1)
[2024-05-20] MEDS: FENTANYL CITR 100 MCG/2 ML IV PRN (16:32)
[2024-05-20] MEDS: DOCUSATE NA 100 MG CAP PO SCH (20:52)
[2024-05-21 05:17] LABS: Absolute Eosinophils 0.1 K/uL (0-0.5); Absolute Monocytes 0.4 K/uL (0.1-1.3); Absolute Neutrophil 3.2 K/uL (1.8-8.0); Basophils % 0.4 % (0-1.3); Eosinophils % 1.8 % (0-4.4); Hematocrit 25.4 % (36.0-45.0); Hemoglobin 8.6 g/dL (12.0-15.0); Lymphocytes % 21.1 % (15.3-44.8); MCH 31.9 pg (27.0-35.0); MCV 93.7 fL (80-100); MPV 8.1 fL (7.6-11.3); Neutrophils % 67.7 % (41.7-73.7); Nucleated Red Blood Cells % 0.1 % (0-0); Platelets 127 thou/uL (152-406); RBC Red Blood Cell Count 2.71 M/uL (3.86-4.86); Red Cell Distribution Width 14.8 % (12.1-15.2)
[2024-05-21 05:22] LABS: Magnesium 2.2 mg/dL (1.6-2.4)
[2024-05-21 06:48] LABS: Albumin 2.1 g/dL (3.4-5.0); Phosphorus 1.9 mg/dL (2.5-4.9)
[2024-05-21] MEDS: DRISDOL (VITAMIN D=ERGOCALCIFEROL) 50000 UNIT CAP PO SCH (08:13)
[2024-05-21] MEDS: POTASS/SODIUM PHOSPHATE 1 PKT POWD.PACK PO SCH (08:13)
[2024-05-21 08:15] LABS: Albumin 2.5 g/dL (3.4-5.0); Anion Gap 8.9 mEq/L (5.0-15.0); Phosphorus 2.2 mg/dL (2.5-4.9); Potassium 4.9 mEq/L (3.5-5.1)
[2024-05-21] MEDS: VANCOMYCIN 2 GM in NA CHLORIDE 0.9% 500 ML IVPB SCH (10:00)
--- NOTE | 2024-05-21 14:57 | EKG ---
Test Date: 2024-05-19 Test Time: 13:12:40 Hasher Operator: JERAMIE MEASUREMENT RESULTS: Intervals: Rate: 73 WV: 156 QRSD: 100 QT: 392 QTc: 431 [place]: P: 47 WV: 156 QRS: 104 T: 8 INTERPRETIVE STATEMENTS: Normal sinus rhythm Rightward axis Low voltage QRS Borderline ECG Compared to ECG 05/12/2024 17:44:41 No significant changes Electronically Signed On 05-21-24 14:48:23 CDT by Mariusz Burris
--- NOTE | 2024-05-21 20:44 | P.PN ---
Date of Service: 05/21/24 Vital Signs Temp Pulse Resp BP Pulse Ox 98.0 F 85 15 195/86 H 95 05/21/24 16:00 05/21/24 16:00 05/21/24 16:00 05/21/24 16:00 05/21/24 16:00 Medications Docusate Sodium (Docusate Na 100 Mg Cap) 100 mg PO BID [facility] Last Admin: 05/21/24 08:14 Dose: Not Given Ergocalciferol (Drisdol (Vitamin D=Ergocalciferol) 25770 Unit Cap) 50,000 unit PO DAILY [facility] Stop: 05/22/24 09:01 Last Admin: 05/21/24 08:13 Dose: 50,000 unit Fentanyl Citrate (Fentanyl Citr 100 Mcg/2 Ml) 25 mcg IV Q4H PRN PRN Reason: Pain scale 8-10 (Severe) Last Admin: 05/21/24 08:13 Dose: 25 mcg Gabapentin (Gabapentin 300 Mg Cap) 300 mg PO TID [facility] Last Admin: 05/21/24 14:00 Dose: 300 mg Glucagon (Glucagon 1 Mg/Vial) 1 mg IM 1X PRN PRN Reason: HYPOGLYCEMIA Heparin Sodium (Porcine) (Heparin 5000 Unit/Ml 1 Ml Vial) 5,000 unit SQ Q8HR [facility] Last Admin: 05/21/24 17:16 Dose: 5,000 unit Dextrose (Dextrose 10% Water Iv Soln.) 125 mls @ 0 mls/hr IV PRN PRN; Protocol PRN Reason: HYPOGLYCEMIA Last Admin: 05/19/24 17:23 Dose: 125 mls Norepinephrine Bitartrate 4 mg (/ Dextrose) 254 mls @ 46.471 mls/hr IV TITR [facility]; Protocol Last Titration: 05/20/24 07:30 Dose: 0 mcg/kg/min, 0 mls/hr Ceftriaxone Sodium 1,000 mg/ (Sodium Chloride) 50 mls @ 100 mls/hr IVPB Q12HR [facility]; Protocol Last Admin: 05/21/24 08:12 Dose: 50 mls Vancomycin HCl 2 gm/ Sodium (Chloride) 500 mls @ 250 mls/hr IVPB Q24H [facility] Insulin Human Regular (Insulin Regular (Human) 100 Unit/Ml) 0 unit SQ ACHS [facility]; Protocol Last Admin: 05/21/24 17:14 Dose: 3 unit Levothyroxine Sodium (Levothyroxine Sod 0.025 Mg Tab) 0.025 mg PO DAILYAC [facility] Last Admin: 05/21/24 06:39 Dose: 0.025 mg Mupirocin (Mupirocin Nasal 2 Appl/1 Gm Tube) 1 appl ELEN BID [facility] Stop: 05/24/24 21:01 Last Admin: 05/21/24 08:13 Dose: 1 appl Sterile Water (Water For Inj,Sterile 10 Ml) 2 ml IV UD [facility] Microbiology Results 05/19/24 12:27 Blood - Blood Aerobic Blood Culture - Preliminary No growth in 24 hours. 05/19/24 12:27 Blood - Blood Anaerobic Blood Culture - Preliminary No growth in 24 hours. 05/19/24 12:16 Blood - Blood Aerobic Blood Culture - Preliminary No growth in 24 hours. 05/19/24 12:16 Blood - Blood Anaerobic Blood Culture - Preliminary No growth in 24 hours. Assessment/ Plan: Nephrology No dyspnea No chest pain Feeling better No acute events overnight Vitals, medications, blood work and imaging reviewed in the chart General: In no apparent distress, Oriented x3, Cooperative HEENT: Atraumatic Neck: Supple Respiratory: Clear to auscultation bilaterally, Normal air movement Cardiovascular: No edema, Regular rate/rhythm Gastrointestinal: Normal bowel sounds, Soft and benign, Non-distended Musculoskeletal: No clubbing, No contractures Integumentary: No rashes, No cyanosis Neurological: Normal speech [facility] Data (last 24 hrs) 05/19/24 05/19/24 05/19/24 12:16 12:16 12:16 WBC 12.70 H Hgb 11.5 L Hct 34.9 L Plt Count 169 PT 11.7 INR 1.05 APTT 25.4 Sodium 139 Potassium 4.7 BUN 40 H Creatinine 3.47 H Glucose 120 H Total Bilirubin 0.3 AST 94 H ALT 35 Alkaline Phosphatase 56 Imagings Data: EXAM: XR Chest, 1 View CLINICAL HISTORY: The patient is 58 years old and is Female; PICC LINE PLACEMENT TECHNIQUE: Frontal view of the chest. COMPARISON: May 19, 2024. FINDINGS: Lungs: Unremarkable. No consolidation. Pleural space: Unremarkable. No pneumothorax. Heart: Unremarkable. Mediastinum: Unremarkable. Normal mediastinal contour. Bones/joints: No acute findings. Tubes, lines and devices: Left PICC with tip in the SVC. IMPRESSION: Left PICC with tip in the SVC. Procedure: Chest Single View HISTORY: Chest pain COMPARISON: May 12, 2024 FINDINGS: Partially calcified nodule left upper lobe unchanged. Right lung appears clear of acute infiltrate. No significant pleural effusion noted. The heart is mildly enlarged. Conclusions/Impression: Stage II MARIKA in the setting of hypovolemia -No NSAIDs -Continue IVF Hyperkalemia -Low potassium diet -Lokelma prn Hypophosphatemia -Encourage nutrition DM II with Polyneuropathy -RISS -Continue Gabapentin Anemia in chronic illness -Monitor H&H Hospitalist note reviewed
[2024-05-22 00:03] VITALS: O2SAT 94
[2024-05-22 06:03] LABS: Absolute Eosinophils 0.1 K/uL (0-0.5); Absolute Lymphocytes (CBC) 1.1 K/uL (0.7-4.9); Absolute Monocytes 0.4 K/uL (0.1-1.3); Basophils % 0.5 % (0-1.3); Eosinophils % 1.3 % (0-4.4); Hematocrit 28.2 % (36.0-45.0); Hemoglobin 9.9 g/dL (12.0-15.0); Lymphocytes % 24.7 % (15.3-44.8); MCH 32.6 pg (27.0-35.0); MCV 93.3 fL (80-100); MPV 8.3 fL (7.6-11.3); Monocytes % 9.7 % (3.3-12.3); Neutrophils % 63.8 % (41.7-73.7); Nucleated Red Blood Cells % 0.1 % (0-0); Platelets 145 thou/uL (152-406); RBC Red Blood Cell Count 3.03 M/uL (3.86-4.86)
[2024-05-22 06:06] LABS: Magnesium 2.2 mg/dL (1.6-2.4); Phosphorus 1.8 mg/dL (2.5-4.9)
[2024-05-22] MEDS: POTASS/SODIUM PHOSPHATE 1 PKT POWD.PACK PO SCH (07:38)
[2024-05-22] MEDS: CEFDINIR 300 MG CAP PO SCH (08:59)
[2024-05-22] MEDS ORDERED: VANCOMYCIN 2 GM in NA CHLORIDE 0.9% 500 ML IVPB SCH (09:00)
--- NOTE | 2024-05-22 11:28 | P.PN ---
Date of Service: 05/22/24 Vital Signs Temp Pulse Resp BP Pulse Ox 98 F 82 14 184/83 H 94 05/22/24 08:00 05/22/24 08:00 05/22/24 08:00 05/22/24 08:00 05/22/24 08:00 Medications Cefdinir (Cefdinir 300 Mg Cap) 300 mg PO BIDWM [facility] Last Admin: 05/22/24 08:59 Dose: 300 mg Docusate Sodium (Docusate Na 100 Mg Cap) 100 mg PO BID [facility] Last Admin: 05/22/24 09:00 Dose: Not Given Fentanyl Citrate (Fentanyl Citr 100 Mcg/2 Ml) 25 mcg IV Q4H PRN PRN Reason: Pain scale 8-10 (Severe) Last Admin: 05/21/24 08:13 Dose: 25 mcg Gabapentin (Gabapentin 300 Mg Cap) 300 mg PO TID [facility] Last Admin: 05/22/24 08:59 Dose: 300 mg Glucagon (Glucagon 1 Mg/Vial) 1 mg IM 1X PRN PRN Reason: HYPOGLYCEMIA Heparin Sodium (Porcine) (Heparin 5000 Unit/Ml 1 Ml Vial) 5,000 unit SQ Q8HR [facility] Last Admin: 05/22/24 08:59 Dose: 5,000 unit Dextrose (Dextrose 10% Water Iv Soln.) 125 mls @ 0 mls/hr IV PRN PRN; Protocol PRN Reason: HYPOGLYCEMIA Last Admin: 05/19/24 17:23 Dose: 125 mls Insulin Human Regular (Insulin Regular (Human) 100 Unit/Ml) 0 unit SQ ACHS [facility]; Protocol Last Admin: 05/22/24 07:30 Dose: Not Given Levothyroxine Sodium (Levothyroxine Sod 0.025 Mg Tab) 0.025 mg PO DAILYAC [facility] Last Admin: 05/22/24 06:27 Dose: 0.025 mg Mupirocin (Mupirocin Nasal 2 Appl/1 Gm Tube) 1 appl ELEN BID [facility] Stop: 05/24/24 21:01 Last Admin: 05/22/24 08:59 Dose: 1 appl Sterile Water (Water For Inj,Sterile 10 Ml) 2 ml IV UD [facility] Microbiology Results 05/19/24 12:27 Blood - Blood Aerobic Blood Culture - Preliminary No growth in 24 hours. 05/19/24 12:27 Blood - Blood Anaerobic Blood Culture - Preliminary No growth in 24 hours. 05/19/24 12:16 Blood - Blood Aerobic Blood Culture - Preliminary No growth in 24 hours. 05/19/24 12:16 Blood - Blood Anaerobic Blood Culture - Preliminary No growth in 24 hours. Assessment/ Plan: Nephrology No dyspnea No chest pain Emotional today and wants to go home No acute events overnight Vitals, medications, blood work and imaging reviewed in the chart General: In no apparent distress, Oriented x3, Cooperative HEENT: Atraumatic Neck: Supple Respiratory: Clear to auscultation bilaterally, Normal air movement Cardiovascular: No edema, Regular rate/rhythm Gastrointestinal: Normal bowel sounds, Soft and benign, Non-distended Musculoskeletal: No clubbing, No contractures Integumentary: No rashes, No cyanosis Neurological: Normal speech [facility] Data (last 24 hrs) 05/19/24 05/19/24 05/19/24 12:16 12:16 12:16 WBC 12.70 H Hgb 11.5 L Hct 34.9 L Plt Count 169 PT 11.7 INR 1.05 APTT 25.4 Sodium 139 Potassium 4.7 BUN 40 H Creatinine 3.47 H Glucose 120 H Total Bilirubin 0.3 AST 94 H ALT 35 Alkaline Phosphatase 56 Imagings Data: EXAM: XR Chest, 1 View CLINICAL HISTORY: The patient is 58 years old and is Female; PICC LINE PLACEMENT TECHNIQUE: Frontal view of the chest. COMPARISON: May 19, 2024. FINDINGS: Lungs: Unremarkable. No consolidation. Pleural space: Unremarkable. No pneumothorax. Heart: Unremarkable. Mediastinum: Unremarkable. Normal mediastinal contour. Bones/joints: No acute findings. Tubes, lines and devices: Left PICC with tip in the SVC. IMPRESSION: Left PICC with tip in the SVC. Procedure: Chest Single View HISTORY: Chest pain COMPARISON: May 12, 2024 FINDINGS: Partially calcified nodule left upper lobe unchanged. Right lung appears clear of acute infiltrate. No significant pleural effusion noted. The heart is mildly enlarged. Conclusions/Impression: Stage II MARIKA in the setting of hypovolemia -No NSAIDs -Continue IVF Hyperkalemia -Low potassium diet -Lokelma prn Hypophosphatemia -Encourage nutrition -Neutra-phos X1 today HTN -Restart Propranolol BID -Hold Lisinopril due to hyperkalemia -Start Amlodipine DM II with Polyneuropathy -RISS -Continue Gabapentin Anemia in chronic illness -Monitor H&H Hospitalist note reviewed
[2024-05-22] MEDS: POTASS/SODIUM PHOSPHATE 1 PKT POWD.PACK PO ONE (11:47)
[2024-05-22] MEDS: AMLODIPINE 5 MG TAB PO SCH (11:47)
[2024-05-22] MEDS: PROPRANOLOL HCL 10 MG TAB PO SCH (11:47)
[2024-05-22 12:50] VITALS: BP 189/86; TEMP 98.2
== END 2024-05-22 16:26 | disposition home health service (06) | DRG 871 ==
LOC: ER 11:23 → ERHOLD 15:07 → 2ND 15:38 → 3RD-ICU 16:09 → 4TH 05-21 15:14
PROVIDERS: ADMIT Hospitalist; ATTEND Hospitalist
PROC: 02HV33Z Insertion of Infusion Device into Superior Vena Cava, Percutaneous Approach (ICD-10-PCS; principal; 2024-05-19)
PROC: 3E043XZ Introduction of Vasopressor into Central Vein, Percutaneous Approach (ICD-10-PCS; 2024-05-19)
DX: A41.9 Sepsis, unspecified organism (principal); R65.21 Severe sepsis with septic shock; N17.9 Acute kidney failure, unspecified; E86.0 Dehydration; D63.8 Anemia in other chronic diseases classified elsewhere; E11.42 Type 2 diabetes mellitus with diabetic polyneuropathy; E78.00 Pure hypercholesterolemia, unspecified; E83.39 Other disorders of phosphorus metabolism; E87.5 Hyperkalemia; E86.1 Hypovolemia; F90.9 Attention-deficit hyperactivity disorder, unspecified type; Z56.0 Unemployment, unspecified; Z79.4 Long term (current) use of insulin; Z88.1 Allergy status to other antibiotic agents; Z88.0 Allergy status to penicillin; Z88.8 Allergy status to other drugs, medicaments and biological substances; Z91.51 Personal history of suicidal behavior; Z79.52 Long term (current) use of systemic steroids; Z79.84 Long term (current) use of oral hypoglycemic drugs; Z90.49 Acquired absence of other specified parts of digestive tract; Z89.412 Acquired absence of left great toe; Z89.422 Acquired absence of other left toe(s); Z89.421 Acquired absence of other right toe(s); Z79.899 Other long term (current) drug therapy; Z90.710 Acquired absence of both cervix and uterus; Z86.718 Personal history of other venous thrombosis and embolism
CPT/HCPCS: 36415; 36569; 51702; 71045; 80048; 80053; 80069; 80202; 81001; 82947; 83605; 83735; 83880; 84100; 84484; 85025; 85610; 85730; 87040; 87324; 92610; 93005; 96365; 97116; 97129; 97161; 99285; J0696; J1644; J1720; J3010; J7030; J7040; J7060; P9047

== ENCOUNTER 2025-04-17 18:56 | Inpatient (IN) | payer OTHER, MEDICAID ==
[2025-04-17] MEDS ORDERED: NA CHLORIDE 0.9% 2,000 ML ONE (19:39)
[2025-04-17] MEDS ORDERED: ONDANSETRON 4 MG/2 ML VIAL ONE (19:39)
[2025-04-17] MEDS ORDERED: NA CHLORIDE 0.9% 100 ML ONE (19:40)
[2025-04-17] MEDS ORDERED: NA CHLORIDE 0.9% 500 ML ONE ×2 (19:40→20:06)
[2025-04-17] MEDS ORDERED: CEFEPIME 1 GM/VIAL ONE (19:40)
[2025-04-17] MEDS ORDERED: VANCOMYCIN 1 GM/VIAL ONE (19:41)
[2025-04-17 19:45] LABS: Absolute Lymphocytes (CBC) 1.1 K/uL (0.7-4.9); Hematocrit 35.6 % (36.0-45.0); Hemoglobin 12.0 g/dL (12.0-15.0); MCH 30.9 pg (27.0-35.0); MCHC 33.9 g/dL (32.0-36.0); MCV 91.1 fL (80-100); MPV 9.3 fL (7.6-11.3); Nucleated RBC Absolute Count 0.0 (0-0); Nucleated Red Blood Cells % 0.1 % (0-0); RBC Red Blood Cell Count 3.90 M/uL (3.86-4.86); White Blood Count 4.30 thou/uL (4.3-10.9)
[2025-04-17 19:52] LABS: PT Prothrombin Time 13.1 SECONDS (10-13.0); PTT, Activated Partial Thromb 28.2 SECONDS (27.2-37.4); Protime INR 1.16
--- NOTE | 2025-04-17 19:58 | RAD REPORT ---
Procedure: Chest Single View HISTORY: Chest pain COMPARISON: October 2024 FINDINGS: Left upper lobe partially calcified nodule without obvious change. Refer to the CT report for recomme ndation Remainder of the lungs appear clear of acute infiltrate.. No significant pleural effusion noted. The heart is mildly to moderately enlarged.
[2025-04-17 20:02] LABS: Blood O2 Saturation 91.5 % (92.0-98.5)
[2025-04-17 20:03] LABS: Influenza A Ag Negative; Influenza B Ag Negative
[2025-04-17 20:05] LABS: SARS-CoV-2 Antigen Rapid Res Positive (Negative)
[2025-04-17] MEDS ORDERED: NA CHLORIDE 0.9% 1,000 ML ONE (20:06)
[2025-04-17 20:11] LABS: ALT/SGPT 51.0 U/L (13-56); AST/SGOT 90.0 U/L (15-37); Albumin 3.2 g/dL (3.4-5.0); Albumin/Globulin Ratio 0.8 (1.1-1.8); Alkaline Phosphatase 79.0 U/L (45-117); Anion Gap 12.8 mEq/L (5.0-15.0); BUN Blood Urea Nitrogen 33.0 mg/dL (7-18); Globulin 4.2 g/dL (2.3-3.5); Glucose Level 297.0 mg/dL (74-106); NT PRO-BNP 66.0 pg/mL (<125); Potassium 3.8 mEq/L (3.5-5.1); Troponin High Sensitivity 25.2 pg/mL (<58.9)
--- NOTE | 2025-04-17 20:18 | RAD REPORT ---
EXAM: CT brain without contrast HISTORY: Confusion COMPARISON: 2019 TECHNIQUE: Multiple contiguous axial images were obtained and a CT of the brain without contrast.. Sagittal and coronal reconstruction performed. Automated exposure control, adjustment of the mA and/or kV according to patient size, and/or iterative reconstruction. Unless otherwise specified, incidental f indings do not require dedicated imaging follow-up FINDINGS: An intracranial bleed is not seen Ventricles are normal caliber No extra-axial fluid collection noted No significant hypodensity within the brain. Empty sella turcica No fluid within the visualized sinuses or mastoids noted. IMPRESSION: No acute intracranial abnormality noted. If the patient continues to have symptoms to suggest an acute intracranial abnormality then MRI of th e brain would be recommended.
[2025-04-17 20:20] LABS: Thyroid Stimulating Hormone 3.09 uIU/mL (0.358-3.740)
--- NOTE | 2025-04-17 21:42 | ER ---
Nurse's Notes [facility] Name: Renetta Ramsay Age: 59 yrs Sex: Female : 1965 Arrival Date: 04/17/2025 Time: 18:56 Bed 6 Private MD: Diagnosis: Acute COVID-19, dyspnea, COPD exacerbation, acute on chronic renal failure, uncontrolled diabetes;COPD/ Chronic obstructive pulmonary disease with (acute) exacerbation Presentation: 04/17 19:11 Chief complaint: Parent and/or Guardian states: RECENTLY POSITIVE FOR COVID HOME TEST. db TODAY MOM STATES PT IS CONFUSED, FORGETFUL, MULTIPLE FALLS. PT OX 87% RA IN TRIAGE. STARTED ON NC 2L. PT BECOMING EASILY CONFUSED IN TRIAGE. Coronavirus screen: Client denies travel out of the [place] in the last 14 days. Client presents with at least one sign or symptom that may indicate coronavirus-19. Client reports previous positive COVID test result. Ebola Screen: Patient negative for fever greater than or equal to 101.5 degrees Fahrenheit, and additional compatible Ebola Virus Disease symptoms Patient denies exposure to infectious person. Patient denies travel to an Ebola-affected area in the 21 days before illness onset. No symptoms or risks identified at this time. Initial Sepsis Screen: Does the patient meet any 2 criteria? Altered Mental Status. No. Patient's initial sepsis screen is negative. Does the patient have a suspected source of infection? No. Patient's initial sepsis screen is negative. Risk Assessment: Do you want to hurt yourself or someone else? Patient reports no desire to harm self or others. Onset of symptoms was April 17, 2025. 19:11 Method Of Arrival: Wheelchair db 19:11 Acuity: OLY 2 db Triage Assessment: 19:14 General: Appears in no apparent distress. comfortable, Behavior is calm, cooperative, db appropriate for age. Neuro: Level of Consciousness is awake, alert, confused, Oriented to person. Respiratory: Airway is patent Respiratory effort is even, unlabored, Respiratory pattern is regular, symmetrical. Historical: - Allergies: 19:13 Amoxicillin; db 19:13 PENICILLINS; db 19:13 pentazocine lactate; db 19:13 Talwin; db 19:13 aripiprazole; db - PMHx: 19:13 Bipolar disorder; Chronic pain; Depression; DVT; High Cholesterol; osteomyelitis; db Hypertension; Esophageal stricture; ADD/ADHD; Diabetes - NIDDM; Pancreatitis; - PSHx: 19:13 1st and 2nd toe amputation on left foot; 5th toe amputation on the right foot; db Appendectomy; hysterectomy; - Immunization history:: Adult Immunizations unknown. - Infectious Disease History:: Denies. - Social history:: Smoking status: Reported history of juuling and/or vaping. - Family history:: not pertinent. Screenin:57 [facility] ED Fall Risk Assessment (Adult) History of falling in the last 3 months, lg3 including since admission Yes- fall prone (multiple falls) (3 pts) Confusion or Disorientation Yes (5 pts) Intoxicated or Sedated No (0 pts) Impaired Gait No (0 pts) Mobility Assist Device Used No (0 pt) Altered Elimination No (0 pt) Score/Fall Risk Level 3 or more points = High Risk Oriented to surroundings, Maintained a safe environment, Educated pt \T\ family on fall prevention, incl call for assistance when getting out of bed, Assessed \T\ reinforced patient's understanding of fall precautions, Provided non-skid footwear, Utilized family, sitter, or virtual route sales delivery drivers supervisor as indicated. Abuse screen: Denies threats or abuse. Denies injuries from another. Nutritional screening: No deficits noted. Tuberculosis screening: No symptoms or risk factors identified. Assessment: 19:57 General: Appears in no apparent distress. uncomfortable, Behavior is calm, cooperative. lg3 Pain: Denies pain. Neuro: Bird Agitation-Sedation Scale (RASS): 0 - Alert and Calm Level of Consciousness is awake, obeys commands, confused. Cardiovascular: No deficits noted. Denies chest pain, Capillary refill < 3 seconds Clubbing of nail beds is absent JVD is absent Patient's skin is warm and dry. Respiratory: Reports shortness of breath cough that is Airway is patent Respiratory effort is weak, Respiratory pattern is regular, symmetrical. GI: No deficits noted. No signs and/or symptoms were reported involving the gastrointestinal system. Abdomen is round non-distended, obese. : No signs and/or symptoms were reported regarding the genitourinary system. EENT: No deficits noted. No signs and/or symptoms were reported regarding the EENT system. Derm: No deficits noted. No signs and/or symptoms reported regarding the dermatologic system. Skin is intact, is healthy with good turgor, Skin is dry, Skin is normal, Skin temperature is warm. Musculoskeletal: No deficits noted. No signs and/or symptoms reported regarding the musculoskeletal system. Circulation, motion, and sensation intact. Range of motion: intact in all extremities. 20:43 General: PT assisted off of the bedpan and repositioned in the stretcher, purwick in kd3 place, fresh brief in place. Pt has no further requests at this time. . 21:34 Reassessment: Patient appears in no apparent distress at this time. No changes from lg3 previously documented assessment. Patient and/or family updated on plan of care and expected duration. Pain level reassessed. Patient is alert, oriented x 3, equal unlabored respirations, skin warm/dry/pink. 04/18 00:21 Reassessment: Patient appears in no apparent distress at this time. No changes from lg3 previously documented assessment. Patient and/or family updated on plan of care and expected duration. Pain level reassessed. Patient is alert, oriented x 3, equal unlabored respirations, skin warm/dry/pink. 01:24 Reassessment: Patient appears in no apparent distress at this time. No changes from lg3 previously documented assessment. Patient and/or family updated on plan of care and expected duration. Pain level reassessed. Patient is alert, oriented x 3, equal unlabored respirations, skin warm/dry/pink. Vital Signs: 04/17 19:11 BP 116 / 89; Pulse 98; Resp 18; Temp 98.8; Pulse Ox 87% on R/A; db 19:34 Weight 117.93 kg (R); lg3 20:32 BP 130 / 58; Pulse 94; Resp 18; Pulse Ox 95% on R/A; kd3 21:34 BP 135 / 93; Pulse 78; Resp 18 S; Pulse Ox 98% on 2 lpm NC; lg3 04/18 00:21 BP 140 / 87; Pulse 80; Resp 17 S; Pulse Ox 98% on 2 lpm NC; lg3 01:24 BP 136 / 81; Pulse 88; Resp 18 S; Pulse Ox 99% on 2 lpm NC; lg3 Payne Coma Score: 06:56 Eye Response: spontaneous(4). Motor Response: obeys commands(6). Verbal Response: sp4 oriented(5). Total: 15. ED Course: 04/17 19:00 Patient arrived in ED. al6 19:05 Keith Sanders MD is Attending Physician. sp4 19:13 Triage completed. db 19:14 Arm band placed on Patient placed in an exam room. db 19:30 Initial lab(s) drawn, by ED staff, sent to lab. EKG done, by ED staff, reviewed by lg3 Keith Sanders MD. Inserted saline lock: 20 gauge in right antecubital area, using aseptic technique. Blood collected. Flushed with 10 mL NS. 19:35 Chest Single View XRAY In Process Unspecified. EDMS 19:36 BNP Sent. ha1 19:36 Blood Culture Adult (2) Sent. ha1 19:36 CBC with Diff Sent. ha1 19:36 CMP Sent. ha1 19:36 Lactate w/ 2H reflex if indic. Sent. ha1 19:36 Protime (+inr) Sent. ha1 19:36 Ptt, Activated Sent. ha1 19:36 Troponin HS Sent. ha1 19:45 COVID-19 Ag + Flu A+B Ag Sent. vk 19:45 BNP Sent. vk 19:45 Blood Culture Adult (2) Sent. vk 19:54 Joseline Wilks, RN is Primary Nurse. kd3 19:56 CT Head Brain wo Cont In Process Unspecified. EDMS 19:57 Patient has correct armband on for positive identification. Placed in gown. Bed in low lg3 position. Call light in reach. Side rails up X2. Client placed on continuous cardiac and pulse oximetry monitoring. NIBP monitoring applied. compliance monitor on. Door closed. Noise minimized. Warm blanket given. Pillow given. Family accompanied patient. 21:41 Manjeet Maciel MD is Hospitalizing Provider. sp4 22:15 Ghost Lactate-NO COLLECT Timer Sent. vk 04/18 01:25 No provider procedures requiring assistance completed. Patient admitted, IV remains in lg3 place. Administered Medications: 04/17 19:51 Drug: Ondansetron IVP 4 mg IVP once; over 2 minutes Route: IVP; Site: right antecubital;ha1 21:34 Follow up: Response: No adverse reaction lg3 20:02 Drug: NS 0.9% IV (30 ml/kg) 30 ml/kg IV at bolus once; Sepsis Protocol; to be given as kd3 a bolus over 90 minutes Route: IV; Rate: bolus; Site: right antecubital; 21:35 Follow up: Response: No adverse reaction; IV Status: Completed infusion; IV Intake: lg3 3550ml 20:05 Drug: Cefepime IVPB 2 grams IVPB at 200 ml/hr once over 30 mins; (mix in NS 100 mL) lg3 Route: IVPB; Rate: 200 ml/hr; Infused Over: 30 mins; Site: right antecubital; 20:35 Follow up: Response: No adverse reaction; IV Status: Completed infusion; IV Intake: lg3 100ml 20:35 Drug: vancoMYCIN IVPB 2 grams IVPB at calculated rate once Route: IVPB; Rate: lg3 calculated rate; Site: right antecubital; 04/18 00:23 Follow up: Response: No adverse reaction; IV Status: Completed infusion; IV Intake: lg3 500ml 04/17 21:59 Drug: MethylPrednisoLONE IVP 125 mg IVP once Route: IVP; Site: right antecubital; lg3 04/18 00:22 Follow up: Response: No adverse reaction lg3 04/17 21:59 Drug: DuoNeb Nebulize (2.5 mg - 0.5 mg) 3 ml Nebulizer once Route: Nebulizer; lg3 04/18 00:22 Follow up: Response: No adverse reaction lg3 Medication: 04/17 19:57 VIS not applicable for this client. lg3 Intake: 20:35 IV: 100ml; Total: 100ml. lg3 21:35 IV: 3550ml; Total: 3650ml. lg3 04/18 00:23 IV: 500ml; Total: 4150ml. lg3 Outcome: 04/17 21:41 Decision to Hospitalize by Provider. sp4 04/18 01:25 Admitted to Med/surg accompanied by tech, via stretcher, room 418, lg3 Condition: stable Instructed on the need for admit, 01:25 Patient left the ED. lg3 Signatures: Dispatcher [employer] EDMS Rose Bernabe RN RN lg3 Joseline Wilks RN RN kd3 Tanya Aguayo RN RN ha1 Debra Ivy, RN RN Keith Mao MD MD sp4 Kayce Carballo Alissa al6 Corrections: (The following items were deleted from the chart) 04/17 19:14 19:11 Coronavirus screen: Client denies travel out of the [place] in the last 14 days. At db this time, the client does not indicate any symptoms associated with coronavirus-19. db
--- NOTE | 2025-04-17 21:43 | EDPHYS ---
Physician Documentation [facility] Name: Renetta Ramsay Age: 59 yrs Sex: Female : 1965 Arrival Date: 04/17/2025 Time: 18:56 Bed 6 Private MD: ED Physician Keith Sanders HPI: 04/17 19:05 This 59 yrs old Other Race Female presents to ER via Unassigned with complaints of sp4 Dizziness, Fall Injury, covid. 04/18 06:56 59-year-old female presents with acute onset of dizziness, generalized weakness, sp4 feeling unwell, recent diagnosis of COVID. Discovered to have mild hypoxemia on arrival. Not on home oxygen. History of COPD, additional history of bipolar disorder, chronic pain, depression DVT high cholesterol, osteomyelitis hypertension.. Historical: - Allergies: 04/17 19:13 Amoxicillin; db 19:13 PENICILLINS; db 19:13 pentazocine lactate; db 19:13 Talwin; db 19:13 aripiprazole; db - PMHx: 19:13 Bipolar disorder; Chronic pain; Depression; DVT; High Cholesterol; osteomyelitis; db Hypertension; Esophageal stricture; ADD/ADHD; Diabetes - NIDDM; Pancreatitis; - PSHx: 19:13 1st and 2nd toe amputation on left foot; 5th toe amputation on the right foot; db Appendectomy; hysterectomy; - Immunization history:: Adult Immunizations unknown. - Infectious Disease History:: Denies. - Social history:: Smoking status: Reported history of juuling and/or vaping. - Family history:: not pertinent. ROS: 04/18 06:56 Constitutional: Negative for fever, chills, and weight loss, positive for dizziness, sp4 weakness, COVID-19, feeling unwell. All other systems are negative, Exam: 06:56 Constitutional: This is a well developed, well nourished patient who is awake, alert, sp4 ill-appearing but nontoxic.. Head/Face: Normocephalic, atraumatic. Eyes: Pupils equal round and reactive to light, extra-ocular motions intact. Lids and lashes normal. Conjunctiva and sclera are not injected. Cornea within normal limits. Periorbital areas with no swelling, redness, or edema. ENT: Nares patent. No nasal discharge, no septal abnormalities noted. Tympanic membranes are normal and external auditory canals are clear. Oropharynx with no redness, swelling, or masses, exudates, or evidence of obstruction, uvula midline. Mucous membranes moist. Neck: Trachea midline, no thyromegaly or masses palpated, and no cervical lymphadenopathy. Supple, full range of motion without nuchal rigidity, or vertebral point tenderness. Chest/axilla: Normal chest wall appearance and motion. Nontender with no deformity. No lesions are appreciated. Cardiovascular: Regular rate and rhythm with a normal S1 and S2. No gallops, murmurs, or rubs. No pulse deficits. Respiratory: Lungs have equal breath sounds bilaterally, clear to auscultation and percussion. No rales, rhonchi or wheezes noted. No increased work of breathing, no retractions or nasal flaring. Abdomen/GI: Soft, with normal bowel sounds. No distension or tympany. No guarding or rebound. No evidence of tenderness throughout. Back: No spinal tenderness. No costovertebral tenderness. Skin: Warm, dry with normal turgor. Normal color with no rashes, no lesions, and no evidence of cellulitis. MS/ Extremity: Pulses equal, no cyanosis. Neurovascular intact. Full, normal range of motion. Neuro: Awake and alert, GCS 15, oriented to person, place, time, and situation. Cranial nerves II-XII grossly intact. Motor strength 5/5 in all extremities. Sensory grossly intact. Psych: Awake, alert, with orientation to person, place and time. Behavior, mood, and affect are within normal limits 06:56 ECG was reviewed by the Attending Physician. EKG at 1930 normal sinus rhythm normal EKG, occasional PVCs. Low voltage QRS Vital Signs: 04/17 19:11 BP 116 / 89; Pulse 98; Resp 18; Temp 98.8; Pulse Ox 87% on R/A; db 19:34 Weight 117.93 kg (R); lg3 20:32 BP 130 / 58; Pulse 94; Resp 18; Pulse Ox 95% on R/A; kd3 21:34 BP 135 / 93; Pulse 78; Resp 18 S; Pulse Ox 98% on 2 lpm NC; lg3 04/18 00:21 BP 140 / 87; Pulse 80; Resp 17 S; Pulse Ox 98% on 2 lpm NC; lg3 01:24 BP 136 / 81; Pulse 88; Resp 18 S; Pulse Ox 99% on 2 lpm NC; lg3 [place] Coma Score: 06:56 Eye Response: spontaneous(4). Motor Response: obeys commands(6). Verbal Response: sp4 oriented(5). Total: 15. MDM: 04/17 19:15 Medical Screening Exam initiated sp4 19:30 Differential diagnosis: cardiac arrhythmia, generalized weakness, hyperventilation, sp4 hypovolemia, near-syncope, sepsis, syncope, TIA, vertigo. Data reviewed: vital signs, nurses notes. 21:31 ED course: FINDINGS: An intracranial bleed is not seen Ventricles are normal caliber No sp4 extra-axial fluid collection noted No significant hypodensity within the brain. Empty sella turcica No fluid within the visualized sinuses or mastoids noted. IMPRESSION: No acute intracranial abnormality noted. If the patient continues to have symptoms to suggest an acute intracranial abnormality then MRI of the brain would be recommended. . ED course: FINDINGS: Left upper lobe partially calcified nodule without obvious change. Refer to the CT report for recommendation Remainder of the lungs appear clear of acute infiltrate.. No significant pleural effusion noted. The heart is mildly to moderately enlarged. . 04/18 07:01 Consideration of Admission/Observation Patient was admitted/placed on observation. sp4 Escalation of care including admission/observation considered. Management of patient was discussed with the following: Hospitalist: Discussed with admission team.. ED course: Procedure: Chest Single View HISTORY: Chest pain COMPARISON: October 2024 FINDINGS: Left upper lobe partially calcified nodule without obvious change. Refer to the CT report for recommendation Remainder of the lungs appear clear of acute infiltrate.. No significant pleural effusion noted. The heart is mildly to moderately enlarged. . ED course: EXAM: CT brain without contrast HISTORY: Confusion COMPARISON: 2019 TECHNIQUE: Multiple contiguous axial images were obtained and a CT of the brain without contrast.. Sagittal and coronal reconstruction performed. Automated exposure control, adjustment of the mA and/or kV according to patient size, and/or iterative reconstruction. Unless otherwise specified, incidental findings do not require dedicated imaging follow-up FINDINGS: An intracranial bleed is not seen Ventricles are normal caliber No extra-axial fluid collection noted No significant hypodensity within the brain. Empty sella turcica No fluid within the visualized sinuses or mastoids noted. IMPRESSION: No acute intracranial abnormality noted. If the patient continues to have symptoms to suggest an acute intracranial abnormality then MRI of the brain would be recommended. . ED course: EXAMINATION: Lumbar Spine Wo Con CLINICAL INDICATION: Female, 59 years old. M54.18 TECHNIQUE: Multiplanar multisequence MR images were obtained of the lumbar spine without intravenous contrast. Unless otherwise specified, incidental findings do not require dedicated imaging follow-up. [id number]. COMPARISON: 10/28/2010 FINDINGS: For purposes of this dictation, it is assumed that there are 5 non rib-bearing lumbar type vertebrae, and the most caudal fully segmented lumbar vertebra is labeled L5. ALIGNMENT: The lumbar spine has normal alignment. BONE: Vertebral bodies are normal in height. There is a normal marrow signal pattern. CORD: No abnormal signal in the cord. The conus medullaris terminates at a normal level. The nerve roots of the cauda equina appear normal. SOFT TISSUE: The included paraspinal soft tissues and retroperitoneal structures are grossly normal. EVALUATION OF THE INDIVIDUAL LEVELS: L1-L2 :Disc is normal in height and signal intensity. No significant spinal canal or neural foraminal stenosis. L2-L3: Disc is normal in height and signal intensity. No significant spinal canal or neural foraminal stenosis. L3-L4: Possible annular fissure in the posterior aspect of the disc. Small central disc protrusion but without significant neural foraminal narrowing or central spinal stenosis. L4-L5: Large central disc protrusion in conjunction with ligamentum flavum and facet hypertrophy results in severe central spinal stenosis and severe bilateral subarticular zone narrowing. Neural foramen are adequate. L5-S1: Moderate disc height loss with left eccentric osseous spurring as well as facet and ligamentum flavum hypertrophy that results in moderate left neural foraminal narrowing. There are no foramen is mildly narrow. No central spinal stenosis. IMPRESSION: Large central disc protrusion at L4-5 in conjunction with facet and ligamentum flavum hypertrophy results in severe central spinal stenosis and severe bilateral sub articular zone encroachment. This is presumably the symptomatic level. Recommend consultation/referral to a environmental monitoring specialist. . 07:01 ED course: Sepsis reevaluation completed, septic fluid bolus was ordered for the sp4 patient. No sign of significant sepsis likely illness acute COVID-19. 09/26 19:19 Order name: BNP; Complete Time: 21:20 [facility] 04/17 19:19 Order name: Blood Culture Adult (2) 04/17 19:19 Order name: CBC with Diff; Complete Time: 20:01 [facility] 04/17 19:19 Order name: CMP; Complete Time: 21:20 [facility] 04/17 19:19 Order name: Lactate w/ 2H reflex if indic.; Complete Time: 21:20 [facility] 04/17 19:19 Order name: Protime (+inr); Complete Time: 20: [facility] 04/17 19:19 Order name: Ptt, Activated; Complete Time: 20: [facility] 04/17 19:19 Order name: Troponin HS; Complete Time: 21:20 [facility] 04/17 19:19 Order name: ABG; Complete Time: 21:20 [facility] 04/17 19:23 Order name: Troponin High Sensitivity; Complete Time: 21:20 [facility] 04/17 19:24 Order name: COVID-19 Ag + Flu A+B Ag; Complete Time: 21:20 [facility] 04/17 19:26 Order name: TSH; Complete Time: 21:20 [facility] 04/17 19:26 Order name: T4 Free; Complete Time: 21:20 [facility] 04/17 19:35 Order name: UA Rfx Scottie Cult if indicated lg3 04/17 20:18 Order name: Ghost Lactate-NO COLLECT Timer; Complete Time: 07:04 [facility] 04/17 22:38 Order name: Lactate Sepsis 2 HR Follow-up; Complete Time: 07:04 [facility] 04/17 23:51 Order name: CBC with Automated Diff EDMS 04/17 23:51 Order name: CBC with Automated Diff EDMS 04/17 23:51 Order name: CBC with Automated Diff EDMS 04/17 23:51 Order name: CBC with Automated Diff EDMS 04/17 23:51 Order name: Comprehensive Metabolic Panel [facility] 04/17 23:51 Order name: Comprehensive Metabolic Panel [facility] 04/17 23:52 Order name: Comprehensive Metabolic Panel MS 04/17 23:52 Order name: Comprehensive Metabolic Panel MS 04/17 19:19 Order name: Chest Single View XRAY; Complete Time: 20:01 [facility] 04/17 19:22 Order name: CT Head Brain wo Cont; Complete Time: 21:20 sp4 04/17 19:19 Order name: Accucheck; Complete Time: 20:01 4 04/17 19:19 Order name: Cardiac monitoring; Complete Time: 19:35 4 04/17 19:19 Order name: EKG - Nurse/Tech; Complete Time: 19:36 4 04/17 19:19 Order name: IV Saline Lock - Large Bore; Complete Time: 19:36 4 04/17 19:19 Order name: Labs collected and sent; Complete Time: 19:36 4 04/17 19:19 Order name: O2 Per Protocol; Complete Time: 19:36 4 04/17 19:19 Order name: O2 Sat Monitoring; Complete Time: :36 4 04/17 19:19 Order name: Vital Signs; Complete Time: :36 EC/26 19:30 Rate is 91 beats/min. Rhythm is regular, Sinus Rhythm with Occasional PVCs. QRS [place] is sp4 Normal. AR interval is normal. QRS interval is normal. QT interval is normal. No Q waves. T waves are Normal. No ST changes noted. Clinical impression: No evidence of ischemia. Interpreted by me. Reviewed by me. Administered Medications: 19:51 Drug: Ondansetron IVP 4 mg IVP once; over 2 minutes Route: IVP; Site: right antecubital;ha 21:34 Follow up: Response: No adverse reaction lg3 20:02 Drug: NS 0.9% IV (30 ml/kg) 30 ml/kg IV at bolus once; Sepsis Protocol; to be given as kd3 a bolus over 90 minutes Route: IV; Rate: bolus; Site: right antecubital; 21:35 Follow up: Response: No adverse reaction; IV Status: Completed infusion; IV Intake: lg3 3550ml 20:05 Drug: Cefepime IVPB 2 grams IVPB at 200 ml/hr once over 30 mins; (mix in NS 100 mL) lg3 Route: IVPB; Rate: 200 ml/hr; Infused Over: 30 mins; Site: right antecubital; 20:35 Follow up: Response: No adverse reaction; IV Status: Completed infusion; IV Intake: lg3 100ml 20:35 Drug: vancoMYCIN IVPB 2 grams IVPB at calculated rate once Route: IVPB; Rate: lg3 calculated rate; Site: right antecubital; 04/18 00:23 Follow up: Response: No adverse reaction; IV Status: Completed infusion; IV Intake: lg3 500ml 04/17 21:59 Drug: MethylPrednisoLONE IVP 125 mg IVP once Route: IVP; Site: right antecubital; lg3 04/18 00:22 Follow up: Response: No adverse reaction lg3 04/17 21:59 Drug: DuoNeb Nebulize (2.5 mg - 0.5 mg) 3 ml Nebulizer once Route: Nebulizer; lg3 04/18 00:22 Follow up: Response: No adverse reaction lg3 Disposition: 07:01 Chart complete. sp4 Disposition Summary: 04/17/25 21:41 Hospitalization Ordered Notes: Hospitalization Status: Inpatient Admission sp4 Provider: Manjeet Maciel sp4 Location: Telemetry/[facility] (Inpatient) sp4 Condition: Stable sp4 Problem: new sp4 Symptoms: have improved sp4 Bed/Room Type: Standard sp4 Room Assignment: [facility](04/17/25 23:54) [facility] Diagnosis - Acute COVID-19, dyspnea, COPD exacerbation, acute on chronic renal failure, sp4 uncontrolled diabetes - COPD/ Chronic obstructive pulmonary disease with (acute) exacerbation sp4 Forms: - Medication Reconciliation Form sp4 - SBAR form sp4 - Leadership Thank You Letter sp4 Critical care time excluding procedures: 04/17 21:42 Critical care time: Bedside Care: 36 minutes, Consultation: 12 minutes, Family sp4 Intervention: 12 minutes. Total time: 60 minutes Signatures: Dispatcher [employer] EDRose Younger RN RN [email or web address] Joseline Wilks, RN RN [email or web address] Tanya Aguayo, RN RN ha1 Debra Ivy, RN RN Keith Mao MD MD sp4 Jannette Anderson [facility] Corrections: (The following items were deleted from the chart) 19:20 19:20 PROBNP+C.LAB.BRZ ordered. EDMS EDMS 19:20 19:20 BLOOD CULTURE*+BA.LAB.BRZ ordered. EDMS EDMS 19:20 19:20 CBC+H.LAB.BRZ ordered. EDMS EDMS 19:20 19:20 COMPREHENSIVE METABOLIC PANEL+C.LAB.BRZ ordered. EDMS EDMS 19:20 19:20 LACTATE+C.LAB.BRZ ordered. EDMS EDMS 19:20 19:20 PROTIME (+INR)+COAG.LAB.BRZ ordered. EDMS EDMS 19:20 19:20 PTT, ACTIVATED+COAG.LAB.BRZ ordered. EDMS EDMS 19:20 19:20 Troponin High Sensitivity+C.LAB.BRZ ordered. EDMS EDMS 19:20 19:20 Chest Single View+RAD.RAD.BRZ ordered. EDMS EDMS 19:20 19:20 Arterial Blood Gas+RC.LAB.BRZ ordered. EDMS EDMS 19:23 19:23 Head Brain Wo Cont+CT.RAD.BRZ ordered. EDMS EDMS 20:00 19:19 Baker ordered. sp4 lg3 23:54 21:41 sp4 kmf
[2025-04-17] MEDS ORDERED: IPRATROPIUM BROM 0.5MG/2.5ML ONE (21:54)
[2025-04-17] MEDS ORDERED: ALBUTEROL 2.5 MG/3 ML NEB SOL ONE (21:54)
[2025-04-17] MEDS ORDERED: METHYLPREDNISOLONE 125 MG INJ ONE (21:55)
[2025-04-17] MEDS ORDERED: ALBUTEROL 2.5 MG/3 ML NEB SOL NEB PRN (23:43)
[2025-04-18] MEDS: NA CHLORIDE 0.9% 1,000 ML IV SCH (01:53)
[2025-04-18 02:15] VITALS: BMI 39.5
[2025-04-18] MEDS: HEPARIN 5000 UNIT/ML 1 ML VIAL SQ SCH (02:23)
[2025-04-18 07:02] LABS: RBC Red Blood Cell Count 4.00 M/uL (3.86-4.86); White Blood Count 3.40 thou/uL (4.3-10.9)
[2025-04-18 07:03] LABS: Absolute Lymphocytes (CBC) 0.6 K/uL (0.7-4.9); Hematocrit 36.0 % (36.0-45.0); Hemoglobin 12.2 g/dL (12.0-15.0); MCH 30.6 pg (27.0-35.0); MCHC 33.9 g/dL (32.0-36.0); MCV 90.1 fL (80-100); MPV 8.9 fL (7.6-11.3); Nucleated RBC Absolute Count 0.0 (0-0); Nucleated Red Blood Cells % 0.1 % (0-0)
--- NOTE | 2025-04-18 07:05 | P.HP ---
Certification for Inpatient Patient admitted to: Inpatient With expected LOS: >2 Midnights Patient will require the following post-hospital care: None Practitioner: I am a practitioner with admitting privileges, knowledge of patient current condition, hospital course, and medical plan of care. Services: Services provided to patient in accordance with Admission requirements found in Title 42 Section 412.3 of the Code of Federal Regulations <JanetRonaldo - Filed: 04/18/25 07:14> Patient History Date of Service: 04/17/25 Reason for admission: COVID-positive with acute hypoxic respiratory failure. History of Present Illness: Patient is a 59-year-old female with past medical history of morbid obesity, COPD, CAD, home oxygen dependent 2 L, presents to ER complaining of worsening shortness of breath associated with generalized body weakness, with no chest pain. Patient states for the past 3 to 4 days, she has been having progressive shortness of breath associated with nonproductive cough, denies of any chills or fever. She states despite the use of her home oxygen, her shortness of breath progressively worsening which then prompted her to report to ER today. Patient workup in ER positive for COVID. Clinical presentation indicative of combined COVID-positive with associated COPD exacerbation. Bilateral lungs with coarse scattered crackles and rhonchi, in no acute respiratory distress at this time. - Past Medical/Surgical History Diabetic: Yes -: Diabetes mellitus type 2insulin-dependent -: Hyperlipidemia -: Bipolar disorder, 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 She has 1 son. She does not work. She currently lives with her mother. - Family History Father -: Heart disease Mother -: Heart disease, Hypertension, Diabetes, Cancer Notes: breast cancer - Social History Smoking Status: Former smoker Alcohol use: No CD- Drugs: No Caffeine use: Yes Place of Residence: Home <Ronaldo Gonzales - Last Filed: 04/18/25 07:14> Date of Service: 04/27/25 <Adina Thorne - Last Filed: 04/27/25 06:53> Allergies meperidine [From Demerol] Allergy (Mild, Verified 12/19/23 22:54) Unknown pentazocine lactate [From Talwin] Allergy (Mild, Verified 12/19/23 22:54) Hallucinations amoxicillin Allergy (Verified 12/19/23 22:54) Nausea/Vomiting aripiprazole [From Abilify] Allergy (Verified 12/19/23 22:54) Dizzy Penicillins Allergy (Verified 12/19/23 22:54) Nausea/Vomiting Home Medications: Divalproex Sodium 1,000 mg PO DAILY 12/19/23 Gabapentin 300 mg PO TID 12/19/23 Levothyroxine [Synthroid*] 50 mcg PO DAILY 12/19/23 OLANZapine [Olanzapine] 20 mg PO DAILY 12/19/23 Venlafaxine HCl 37.5 mg PO DAILY 12/19/23 Fenofibrate 160 mg PO DAILY 60 Days #60 tab 05/15/24 Empagliflozin [Jardiance] 12.5 mg PO DAILY 05/19/24 Famotidine [Pepcid] 20 mg PO DAILY 05/19/24 Insulin Lispro [Insulin Lispro Kwikpen U-100] 20 unit SQ QID 05/19/24 Rosuvastatin Calcium 40 mg PO DAILY 05/19/24 lisinopriL [Lisinopril] 20 mg PO DAILY 05/19/24 Insulin Glargine,Hum.rec.anlog [Lantus Solostar] 20 unit SQ DAILY 04/18/25 Insulin Glargine,Hum.rec.anlog [Lantus Solostar] 50 units SQ BID 04/18/25 Oxycodone HCl/Acetaminophen [Oxycodone-Acetaminophn 7.5-325] 7.5 - 325 mg PO BID 04/18/25 Primidone 250 mg PO BID 04/18/25 methocarbamoL [Methocarbamol] 750 mg PO TID PRN 04/18/25 Nirmatrelvir/Ritonavir [Paxlovid 150-100 mg Pack] 2 tab PO BID 5 Days #1 sabina 09/28/25 Review of Systems 10-point ROS is otherwise unremarkable Respiratory: Cough (Nonproductive), Shortness of Breath, SOB with Excertion <Ronaldo Gonzales - Last Filed: 04/18/25 07:14> Physical Examination - Vital Signs Temperature: 98.2 F Blood Pressure: 140/73 Pulse: 73 Respirations: 18 Pulse Ox (%): 95 - Physical Exam General: Alert, In no apparent distress, Oriented x3, Cooperative HEENT: Atraumatic, Normocephalic, PERRLA, Mucous membr. moist/pink, Sclerae nonicteric Neck: Supple, 2+ carotid pulse no bruit, No LAD, Without JVD or thyroid abnormality Respiratory: Other (Bilateral coarse crackles and rhonchi.) Cardiovascular: No edema, Normal pulses, Regular rate/rhythm, Normal S1 S2, No gallops, No rubs, No murmurs Capillary refill: <2 Seconds Gastrointestinal: Normal bowel sounds, Soft and benign, Non-distended, W/out hepatomegaly, No ascites, No tenderness, No masses, No rebound, No guarding Musculoskeletal: No clubbing, No swelling, No contractures, No erythema, No tenderness, No warmth Integumentary: No rashes, No breakdown, No significant lesion, No tenderness/swe lling, No erythema, No warmth, No cyanosis Neurological: Normal gait, Normal speech, Sensation intact, Normal reflexes 2+, Normal affect Lymphatics: No axilla or inguinal lymphadenopathy - Studies Laboratory Data (last 24 hrs) 04/17/25 04/17/25 04/17/25 19:28 19:28 19:28 WBC 4.30 Hgb 12.0 Hct 35.6 L Plt Count 139 L PT 13.1 H INR 1.16 APTT 28.2 Sodium 138 Potassium 3.8 BUN 33 H Creatinine 3.03 H Glucose 297 H Total Bilirubin 0.3 AST 90 H ALT 51 Alkaline Phosphatase 79 <Ronaldo Gonzales - Last Filed: 04/18/25 07:14> Female Exam - Breasts Breasts: Normal configuration, Normal contours, Symmetrical <Ronaldo Gonzales - Last Filed: 04/18/25 07:14> Assessment and Plan - Plan Patient is a 59-year-old female reports to ER complaining of worsening shortness of breath with associated nonproductive cough, with no chest pain. Patient diagnosed with COVID positive, with combined COPD exacerbation. (1) COVID-19 positive with combined COPD exacerbation/generalized weakness/ MARIKA.. - Brovana 1 5 mcg neb twice daily. -Albuterol 2.5 mg neb as needed every 6 hours. -Paxlovid 150-100 mg back. As directed. -Oxygen supplement titrate according to patient demand. - PT consult. - IV NS at 100 mL/ hr. (2) DVT prophylaxis. -Heparin 5000 units subcu every 8 hours. (3)Explained entire treatment plan to the patient, solicited questions answered and voiced understanding. Discharge Plan: Home Plan to discharge in: Greater than 2 days - Advance Directives Does patient have a Living Will: No Does patient have a Durable POA for Healthcare: No - Code Status/Comfort Care Code Status Assessed: Yes Code Status: Full Code Critical Care: Yes Time Spent Managing Pts Care (In Minutes): 55 <Ronaldo Gonzales - Last Filed: 04/18/25 07:14> Physician Review: Patient Assessed, Agree with Above Assessment and Plan <Adina Thorne - Last Filed: 04/27/25 06:53>
[2025-04-18 07:25] LABS: ALT/SGPT 47.0 U/L (13-56); AST/SGOT 86.0 U/L (15-37); Albumin 2.9 g/dL (3.4-5.0); Albumin/Globulin Ratio 0.7 (1.1-1.8); Alkaline Phosphatase 82.0 U/L (45-117); Anion Gap 13.8 mEq/L (5.0-15.0); BUN Blood Urea Nitrogen 31.0 mg/dL (7-18); Globulin 4.1 g/dL (2.3-3.5); Potassium 4.8 mEq/L (3.5-5.1)
[2025-04-18 07:30] LABS: Glucose Level 406.0 mg/dL (74-106)
[2025-04-18] MEDS: ARFORMOTEROL TARTRATE 15 MCG/2 ML VIAL.NEB NEB SCH (08:27)
[2025-04-18] MEDS ORDERED: D10W 125 ML IV PRN (08:29)
[2025-04-18] MEDS ORDERED: GLUCAGON 1 MG/VIAL IM PRN (08:29)
[2025-04-18 08:48] LABS: Blood Morphology Comment NOT SEEN (NOT SEEN); Differential Total Cells Count 100; Segmented Neutrophils 75 % (40-80)
[2025-04-18] MEDS: NIRMATRELVIR/RITONAVIR TABLET PO SCH (09:00)
[2025-04-18] MEDS ORDERED: D50W 25 GM/50 ML SYRINGE IV PRN (09:00)
[2025-04-18] MEDS: INSULIN REGULAR (HUMAN) 100 UNIT/ML SQ SCH (10:22)
[2025-04-19 06:18] LABS: Absolute Lymphocytes (CBC) 1.3 K/uL (0.7-4.9); Hematocrit 31.9 % (36.0-45.0); Hemoglobin 10.8 g/dL (12.0-15.0); MCH 30.6 pg (27.0-35.0); MCHC 33.7 g/dL (32.0-36.0); MCV 90.6 fL (80-100); MPV 9.1 fL (7.6-11.3); Nucleated RBC Absolute Count 0.0 (0-0); Nucleated Red Blood Cells % 0.2 % (0-0); RBC Red Blood Cell Count 3.52 M/uL (3.86-4.86); White Blood Count 4.00 thou/uL (4.3-10.9)
[2025-04-19 07:06] LABS: ALT/SGPT 31.0 U/L (13-56); AST/SGOT 56.0 U/L (15-37); Albumin 2.5 g/dL (3.4-5.0); Albumin/Globulin Ratio 0.7 (1.1-1.8); Alkaline Phosphatase 66.0 U/L (45-117); Anion Gap 8.0 mEq/L (5.0-15.0); BUN Blood Urea Nitrogen 28.0 mg/dL (7-18); Globulin 3.4 g/dL (2.3-3.5); Glucose Level 154.0 mg/dL (74-106); Potassium 4.0 mEq/L (3.5-5.1)
[2025-04-19 09:07] VITALS: BP 139/81; TEMP 98
[2025-04-19 09:39] VITALS: O2SAT 94
--- NOTE | 2025-04-19 11:10 | P.DS ---
Admission Date: 04/17/25 Discharge Date: 04/19/25 Disposition: ROUTINE DISCHARGE Discharge Condition: GOOD Reason for Admission: COVID-positive with acute hypoxic respiratory failure. Brief History of Present Illness: Patient is a 59-year-old female with past medical history of morbid obesity, COPD, CAD, home oxygen dependent 2 L, presents to ER complaining of worsening shortness of breath associated with generalized body weakness, with no chest pain. Patient states for the past 3 to 4 days, she has been having progressive shortness of breath associated with nonproductive cough, denies of any chills or fever. She states despite the use of her home oxygen, her shortness of breath progressively worsening which then prompted her to report to ER today. Patient workup in ER positive for COVID. Clinical presentation indicative of combined COVID-positive with associated COPD exacerbation. Bilateral lungs with coarse scattered crackles and rhonchi, in no acute respiratory distress at this time. Upon admission she was started on Paxlovid and given supplemental oxygen via nasal cannula. Her clinical condition improved over the course of her stay. In addition she was started on IV fluid and her acute kidney injury improved. She will follow-up with her primary care provider and finish her dose of Paxlovid as outpatient. She has been weaned off nasal cannula prior to discharge. Hospital Course: Physical Examination - Vital Signs Temperature: 98.2 F Blood Pressure: 140/73 Pulse: 73 Respirations: 18 Pulse Ox (%): 95 - Physical Exam General: Alert, In no apparent distress, Oriented x3, Cooperative HEENT: Atraumatic, Normocephalic, PERRLA, Mucous membr. moist/pink, Sclerae nonicteric Neck: Supple, 2+ carotid pulse no bruit, No LAD, Without JVD or thyroid abnormality Respiratory: Other (Bilateral coarse crackles and rhonchi.) Cardiovascular: No edema, Normal pulses, Regular rate/rhythm, Normal S1 S2, No gallops, No rubs, No murmurs Capillary refill: <2 Seconds Gastrointestinal: Normal bowel sounds, Soft and benign, Non-distended, W/out hepatomegaly, No ascites, No tenderness, No masses, No rebound, No guarding Musculoskeletal: No clubbing, No swelling, No contractures, No erythema, No tenderness, No warmth Integumentary: No rashes, No breakdown, No significant lesion, No tenderness/swelling, No erythema, No warmth, No cyanosis Neurological: Normal gait, Normal speech, Sensation intact, Normal reflexes 2+, Normal affect Lymphatics: No axilla or inguinal lymphadenopathy - Studies Laboratory Data (last 24 hrs) 04/17/25 04/17/25 04/17/25 19:28 19:28 19:28 WBC 4.30 Hgb 12.0 Hct 35.6 L Plt Count 139 L PT 13.1 H INR 1.16 APTT 28.2 Sodium 138 Potassium 3.8 BUN 33 H Creatinine 3.03 H Glucose 297 H Total Bilirubin 0.3 AST 90 H ALT 51 Alkaline Phosphatase 79 Female Exam - Breasts Breasts: Normal configuration, Normal contours, Symmetrical Assessment and Plan - Plan Patient is a 59-year-old female reports to ER complaining of worsening shortness of breath with associated nonproductive cough, with no chest pain. Patient diagnosed with COVID positive, with combined COPD exacerbation. (1) COVID-19 positive with combined COPD exacerbation/generalized weakness/ MARIKA.. - Brovana 1 5 mcg neb twice daily. -Albuterol 2.5 mg neb as needed every 6 hours. -Paxlovid 150-100 mg back. As directed. -Oxygen supplement titrate according to patient demand. - PT consult. - IV NS at 100 mL/ hr. (2) DVT prophylaxis. -Heparin 5000 units subcu every 8 hours. (3)Explained entire treatment plan to the patient, solicited questions answered and voiced understanding. Discharge Plan: Home Plan to discharge in: Greater than 2 days - Advance Directives Does patient have a Living Will: No Does patient have a Durable POA for Healthcare: No Vital Signs/Physical Exam: Temp Pulse Resp BP Pulse Ox 98.0 F 75 18 139/81 94 04/19/25 08:00 04/19/25 08:00 04/19/25 08:00 04/19/25 08:00 04/19/25 08:00 Laboratory Data at Discharge: WBC 4.00 thou/uL (4.3-10.9) L 04/19/25 05:23 Hgb 10.8 g/dL (12.0-15.0) L D 04/19/25 05:23 Hct 31.9 % (36.0-45.0) L 04/19/25 05:23 Plt Count 144 thou/uL (152-406) L 04/19/25 05:23 PT 13.1 SECONDS (10-13.0) H 04/17/25 19:28 INR 1.16 04/17/25 19:28 APTT 28.2 SECONDS (27.2-37.4) 04/17/25 19:28 Sodium 145 mEq/L (136-145) D 04/19/25 05:23 Potassium 4.0 mEq/L (3.5-5.1) D 04/19/25 05:23 BUN 28 mg/dL (7-18) H 04/19/25 05:23 Creatinine 1.40 mg/dL (0.55-1.02) H 04/19/25 05:23 Glucose 154 mg/dL (74-106) H 04/19/25 05:23 Total Bilirubin 0.3 mg/dL (0.2-1.0) 04/19/25 05:23 AST 56 U/L (15-37) H 04/19/25 05:23 ALT 31 U/L (13-56) 04/19/25 05:23 Alkaline Phosphatase 66 U/L (45-117) 04/19/25 05:23 Home Medications: Divalproex Sodium 1,000 mg PO DAILY 12/19/23 Gabapentin 300 mg PO TID 12/19/23 Levothyroxine [Synthroid*] 50 mcg PO DAILY 12/19/23 OLANZapine [Olanzapine] 20 mg PO DAILY 12/19/23 Venlafaxine HCl 37.5 mg PO DAILY 12/19/23 Fenofibrate 160 mg PO DAILY 60 Days #60 tab 05/15/24 Empagliflozin [Jardiance] 12.5 mg PO DAILY 05/19/24 Famotidine [Pepcid] 20 mg PO DAILY 05/19/24 Insulin Lispro [Insulin Lispro Kwikpen U-100] 20 unit SQ QID 05/19/24 Rosuvastatin Calcium 40 mg PO DAILY 05/19/24 lisinopriL [Lisinopril] 20 mg PO DAILY 05/19/24 Insulin Glargine,Hum.rec.anlog [Lantus Solostar] 20 unit SQ DAILY 04/18/25 Insulin Glargine,Hum.rec.anlog [Lantus Solostar] 50 units SQ BID 04/18/25 Oxycodone HCl/Acetaminophen [Oxycodone-Acetaminophn 7.5-325] 7.5 - 325 mg PO BID 04/18/25 Primidone 250 mg PO BID 04/18/25 methocarbamoL [Methocarbamol] 750 mg PO TID PRN 04/18/25 Nirmatrelvir/Ritonavir [Paxlovid 150-100 mg Pack] 2 tab PO BID 5 Days #1 sabina 04/19/25 New Medications: Nirmatrelvir/Ritonavir [Paxlovid 150-100 mg Pack] 2 tab PO BID 5 Days #1 sabina Followup: Shama Dickerson MD [Primary Care Provider] -
== END 2025-04-19 13:00 | disposition home or self-care (01) | DRG 177 ==
LOC: ER 18:56 → 4TH 23:39
PROVIDERS: ADMIT Family Medicine; ATTEND Family Medicine
PROC: 4A033R1 Measurement of Arterial Saturation, Peripheral, Percutaneous Approach (ICD-10-PCS; principal; 2025-04-17)
DX: U07.1 COVID-19 (principal); J96.01 Acute respiratory failure with hypoxia; J44.1 Chronic obstructive pulmonary disease with (acute) exacerbation; N17.9 Acute kidney failure, unspecified; E78.00 Pure hypercholesterolemia, unspecified; I10 Essential (primary) hypertension; F31.9 Bipolar disorder, unspecified; F90.9 Attention-deficit hyperactivity disorder, unspecified type; E66.01 Morbid (severe) obesity due to excess calories; I25.10 Atherosclerotic heart disease of native coronary artery without angina pectoris; Z88.0 Allergy status to penicillin; Z88.1 Allergy status to other antibiotic agents; Z88.8 Allergy status to other drugs, medicaments and biological substances; Z86.16 Personal history of COVID-19; Z89.412 Acquired absence of left great toe; Z89.422 Acquired absence of other left toe(s); Z90.49 Acquired absence of other specified parts of digestive tract; Z89.421 Acquired absence of other right toe(s); Z90.710 Acquired absence of both cervix and uterus; Z68.39 Body mass index [BMI] 39.0-39.9, adult; Z99.81 Dependence on supplemental oxygen; Z87.891 Personal history of nicotine dependence; Z79.890 Hormone replacement therapy; Z79.4 Long term (current) use of insulin; Z79.899 Other long term (current) drug therapy
CPT/HCPCS: 36415; 36600; 70450; 71045; 80053; 82805; 82947; 83605; 83880; 84439; 84443; 84484; 85025; 85610; 85730; 87040; 87428; 93005; 94640; 96365; 96366; 96367; 96375; 99285; J0692; J1644; J1815; J2405; J2919; J3373; J7030; J7040; J7605; J7613; J7644; J8499